=== PATIENT | female | born 1955 | race Caucasian/White ===

== ENCOUNTER 2021-08-10 22:38 | Observation (INO) | payer MEDICARE, MEDICAID, SELFPAY ==
[2021-08-10 22:40] VITALS: BP 227/111; PULSE 75; RESP 16; O2SAT 97; BMI 25.6
--- NOTE | 2021-08-10 22:50 | W.ED.NAVMDI ---
HPI - Nausea/Vomiting/Diarrhea General: Chief complaint: Nausea/Vomiting/Diarrhea Stated complaint: WEAKNESS/N/V Time Seen by Provider: 08/10/21 22:40 Source: patient and EMS Mode of arrival: EMS Limitations: no limitations History of Present Illness: HPI Narrative: 65-year-old female states over last 1 to 2 weeks she has had decreased appetite and has had vomiting states been vomiting roughly once a day and has had some diarrhea as well. States she started to feel very dehydrated and weak. She is also had depression she states that Effexor appetite denies any suicidal homicidal ideations denies any worsening proving factors. Associated nausea: Yes Associated symtoms: Reports nausea; Denies chest pain, dysuria or headache(s) Review of Systems Const: Denies: fever(s), chills, body aches or change in appetite Eyes: Denies: blurry vision or eye discomfort ENMT: Denies: throat pain or dental pain Card: Denies: chest pain Resp: Denies: dyspnea GI: Reports: nausea and vomiting; Denies: abdominal pain or diarrhea : Denies: dysuria Musc: Denies: neck pain or back pain Skin/Breast: Denies: rash Neuro: Denies: headache(s) Psych: Denies: depression [place]/Lymph: Denies: easy bruising All/Imm: Denies: urticaria Physical Exam Const: COMMON NORMALS: no acute distress, patient oriented x3 and healthy appearing HENMT: COMMON NORMALS: normocephalic and atraumatic HEAD & SCALP: normocephalic and atraumatic Eye: COMMON NORMALS: Equal, round and reactive pupils present and EOMs intact bilaterally PUPIL: Yes Equal, round and reactive pupils present Neck/C-Spine: COMMON NORMALS: full ROM and supple Chest: COMMONS NORMALS: normal inspection of the chest and normal palpation of entire chest wall Resp: COMMON NORMALS: normal respiratory effort, No retractions, No use of accessory muscles and clear to auscultation bilaterally AUSCULTATION: clear to auscultation bilaterally Cardio: COMMON NORMALS: regular rate, regular rhythm and No murmurs present (Cardio) RATE: regular rate RHYTHM: regular rhythm GI: COMMON NORMALS: Normal to inspection, nondistended, normoactive bowel sounds present, Soft to palpation, non-tender and no masses PALPATION: Yes Soft to palpation Extremity: COMMON NORMALS: normal to inspection and full ROM Neuro: COMMON NORMALS: patient oriented x3, moves all extremities and no focal motor deficits Psych: COMMON NORMALS: mental status grossly normal, Normal thought process present and cooperative THOUGHT PROCESS: Normal thought process present Skin: COMMON NORMALS: no rashes or lesions noted and no wounds GENERAL SKIN EXAM: no rashes or lesions noted Course Vital Signs: Vital signs: Vital Signs Pulse Rate 74 08/11/21 01:10 Respiratory Rate 16 08/11/21 01:10 Blood Pressure 178/90 08/11/21 01:10 Pulse Oximetry 98 08/11/21 01:10 MDM - Nausea/Vomiting/Diarrhea MDM Narrative: Medical decision making narrative: Patient presents here with acute kidney injury likely from dehydration and vomiting patient is no EKG changes. Abdominal exam is benign spoke to hospitalist will admit for IV hydration. Lab Data: Labs: Lab Results 08/10/21 08/10/21 08/11/21 21:50 21:50 00:01 WBC 10.4 10^3/uL H 10 ^3/uL (4.0-10.0) RBC 4.60 10^6/uL 10^6 /uL (4.1-5.3) Hgb 13.1 g/dL g/dL (11.5-15.3) Hct 39.0 % % (37.0-47.0) MCV 84.8 fl fl (81-99) MCH 28.5 pg pg (28.0-34.0) MCHC 33.6 g/dL g/dL (30.0-36.0) RDW 11.9 % L % (12.1-15.1) Plt Count 411 10^3/cmm H 10 ^3/cmm (130-400) MPV 12.2 fL H fL (7.4-10.4) Neut % (Auto) 73.5 % % Lymph % (Auto) 17.5 % % [place] % (Auto) 5.7 % % Eos % (Auto) 2.3 % % Baso % (Auto) 0.7 % % Neut # (Auto) 7.63 10^3/uL 10^3 /uL (1.8-7.7) Lymph # (Auto) 1.8 10^3/uL 10^3/ uL (0.8-4.8) [place] # (Auto) 0.6 10^3/uL 10^3/ uL (0.2-0.9) Eos # (Auto) 0.2 10^3/uL 10^3/ uL (0.0-0.8) Baso # (Auto) 0.1 10^3/uL 10^3/ uL (0.0-0.1) Nucleated RBC % (a uto) 0 % % Nucleated RBCs # 0.0 /100WBC /100W BC Sodium 129 mmol/L L mmol /L (136-145) Potassium 5.7 mmol/L H mmol /L (3.5-5.1) Chloride 92 mmol/L L mmol/ L (98-107) Carbon Dioxide 20 mmol/L L mmol/ L (22-29) Anion Gap 22.7 H (5-19) BUN 88 mg/dL H* mg/dL (8-23) Creatinine 3.8 mg/dL H mg/dL (0.5-0.9) GFR Calculation 11.8 mL/min L mL/ min (90-130) Glucose 242 mg/dL H mg/dL (65-115) POC Glucose 241 mg/dL H mg/dL (70-110) Calculated Osmolal ity 303 mOsm/kg H mOs m/kg (285-295) Calcium 9.3 mg/dL mg/dL (8.5-10.5) Total Bilirubin 0.2 mg/dL mg/dL (0.15-1.2) AST 21 U/L U/L (0-32) ALT 17 U/L U/L (0-33) Alkaline Phosphata se 176 IU/L H IU/L (35-105) Total Protein 7.3 g/dL g/dL (6.6-8.7) Albumin 3.9 g/dL g/dL (3.5-5.2) Globulin 3.4 g/dL g/dL (1.3-4.6) Lipase 73 U/L H U/L (13-60) Urine Color Urine Appearance Urine pH Ur Specific Gravit y Urine Protein Urine Glucose (UA) Urine Ketones Urine Blood Urine Nitrate Urine Bilirubin Urine Urobilinogen Ur Leukocyte Madyson ase Urine RBC Urine WBC Ur Squamous Epith Cells Amorphous Sediment Urine Bacteria 08/11/21 00:09 WBC RBC Hgb Hct MCV MCH MCHC RDW Plt Count MPV Neut % (Auto) Lymph % (Auto) [place] % (Auto) Eos % (Auto) Baso % (Auto) Neut # (Auto) Lymph # (Auto) [place] # (Auto) Eos # (Auto) Baso # (Auto) Nucleated RBC % (a uto) Nucleated RBCs # Sodium Potassium Chloride Carbon Dioxide Anion Gap BUN Creatinine GFR Calculation Glucose POC Glucose Calculated Osmolal ity Calcium Total Bilirubin AST ALT Alkaline Phosphata se Total Protein Albumin Globulin Lipase Urine Color Yellow (Yellow) Urine Appearance Cloudy (CLEAR) Urine pH 5 (5-7) Ur Specific Gravit y 1.015 (1.005-1.030) Urine Protein 1+ H (Negative) Urine Glucose (UA) Trace H (Normal) Urine Ketones Negative (Negative) Urine Blood Neg (Negative) Urine Nitrate Negative (Negative) Urine Bilirubin Neg (Negative) Urine Urobilinogen Norm mg/dL mg/dL (Negative) Ur Leukocyte Madyson ase 1+ H (Negative) Urine RBC Rare /hpf /hpf (0-2) Urine WBC 0-4 /hpf H /hpf (0-5) Ur Squamous Epith Cells Too numerous to c nt /hpf H /hpf (0-5) Amorphous Sediment Not Reportable Urine Bacteria Tr /hpf /hpf (NONE) Imaging Data^: CT Abd/Pel: Radiologist's impression: [address] [address] [address] Scan Report Signed Patient: Cony Temple Unit #: [id number] : 1955 Age/Sex: 65 / F ADM Date: 08/10/21 Loc: ER Room/Bed: Attending Dr: Ordering Provider/Ordering MD: Candace Ybarra MD Date of Service: 08/11/21 Procedure(s): CT abdomen pelvis con [id number] Accession Number(s): [id number] Report Number: [id number] PROCEDURE INFORMATION: Exam: CT Abdomen And Pelvis Without Contrast Exam date and time: 08/11/2021 12:11 AM Age: 65 years old Clinical indication: Nausea and vomiting; Patient HX: General weakness with n/v. No constrast given due to creatinine of 3.8. ; Additional info: Vomit TECHNIQUE: Imaging protocol: Computed tomography of the abdomen and pelvis without contrast. Radiation optimization: All CT scans at this facility use at least one of these dose optimization techniques: automated exposure control; mA and/or kV adjustment per patient size (includes targeted exams where dose is matched to clinical indication); or iterative reconstruction. COMPARISON: No relevant prior studies available. RADIATION DOSE METRICS: Total DLP (mGy-cm): 1098.5 FINDINGS: Lungs: The lung bases are clear. No effusion Diaphragm: Small hiatal hernia. Liver: Normal. No mass. Gallbladder and bile ducts: There is gallbladder dilation. There is cholelithiasis without wall thickening or pericholecystic fluid. Pancreas: Normal. No ductal dilation. Spleen: Normal. No splenomegaly. Adrenal glands: Normal. No mass. Kidneys and ureters: 4.4 cm left renal cyst. 1.3 cm indeterminate right renal lesion. Recommend further evaluation, on an outpatient basis with dedicated pre and post contrast renal CT or MRI. Stomach and bowel: Unremarkable. No obstruction. No mucosal thickening. Appendix: No evidence of appendicitis. Intraperitoneal space: Unremarkable. No free air. No significant fluid collection. Vasculature: There is mild atherosclerotic disease. Lymph nodes: Unremarkable. No enlarged lymph nodes. Urinary bladder: Unremarkable as visualized. Reproductive: 2.8 cm right ovarian cyst. Multiple calcified uterine fibroids. Bones/joints: Grade 1 anterolisthesis present at L5-S1 secondary to facet arthritis. Soft tissues: Unremarkable. CT/CT abdomen pelvis wo con [id number] IMPRESSION: 1. Cholelithiasis and gallbladder dilation. If the patient has right upper quadrant pain, consider further evaluation with right upper quadrant ultrasound. 2. Small hiatal hernia. 3. 1.3 cm indeterminate right renal lesion. Recommend further evaluation, on an outpatient basis with dedicated pre and post contrast renal CT or MRI. 4. 2.8 cm right ovarian cyst.No further imaging is recommended. (Reference: Timmy) 5. Multiple calcified uterine fibroids. 6. Grade 1 anterolisthesis present at L5-S1 secondary to facet arthritis. COMMENTS: Consistent with the [employer]'s Incidental Findings Committee white paper (J Am Lalo Radiol 2018): Any incidental renal lesion less than 1 cm or classified as too small to characterize, or any incidental cystic renal lesion characterized as simple-appearing, is likely benign. No follow-up imaging is recommended for these lesions per consensus recommendations based on imaging criteria. REFERENCES: Timmy et al. Management of Incidental Adnexal Findings on CT and MRI: A White Paper of the ACR Incidental Findings Committee, J Am Lalo Radiol. 2019;17(2):248-254. Radiation Dose CTDIVOL = (mGy): DLP = 1098.5 (mGy-cm) Dictated By: Zac Dougherty Signed By: Zac Dougherty Signed Date/Time: 08/11/21 0114 DD/ 001 EKG Data^: EKG 1: Attestation: I personally reviewed and interpreted this EKG as follows: EKG interpretation date: 08/11/21 EKG interpretation time: 00:06 Interpretation: nsr hr [address] or t wave abnormalities qrs 101 qtc 444 Discharge Plan Discharge Patient Disposition: Admitted As Inpatient Clinical Impression: Acute kidney injury, Dehydration, Vomiting Condition: Stable Coding Level of Care Code ED Outside Solar Sales Consultant for Chg Fwd Exam Comprehensive
[2021-08-10 22:54] LABS: Basophils # 0.1 10^3/uL (0.0-0.1); Basophils % 0.7 %; Eosinophils # 0.2 10^3/uL (0.0-0.8); Eosinophils % 2.3 %; Hemoglobin 13.1 g/dL (11.5-15.3); Lymphocytes # 1.8 10^3/uL (0.8-4.8); Lymphocytes % 17.5 %; Mean Corpuscular HGB Conc 33.6 g/dL (30.0-36.0); Mean Corpuscular Hemoglobin 28.5 pg (28.0-34.0); Mean Corpuscular Volume 84.8 fl (81-99); Mean Platelet Volume 12.2 fL (7.4-10.4); Monocytes # 0.6 10^3/uL (0.2-0.9); Monocytes % 5.7 %; Neutrophils # 7.63 10^3/uL (1.8-7.7); Neutrophils % 73.5 %; Nucleated Red Blood Cells % 0 %; Platelet Count 411 10^3/cmm (130-400); Red Cell Distribution Width 11.9 % (12.1-15.1); White Blood Count 10.4 10^3/uL (4.0-10.0)
[2021-08-10] MEDS: sodium chloride 0.9% 1,000 ML 999 ML IV (23:02)
[2021-08-10] MEDS: hyDRALAzine 20 mg/mL INJ 1 mL 10 MG IVP (23:02)
[2021-08-10 23:32] LABS: Albumin Level 3.9 g/dL (3.5-5.2); Calcium 9.3 mg/dL (8.5-10.5); Carbon Dioxide 20 mmol/L (22-29); Globulin 3.4 g/dL (1.3-4.6); Glomerular Filtration Rate 11.8 mL/min (90-130); Glucose 242 mg/dL (65-115); Lipase 73 U/L (13-60); Total Bilirubin 0.2 mg/dL (0.15-1.2); Total Protein 7.3 g/dL (6.6-8.7)
[2021-08-10 23:42] VITALS: BP 181/74
[2021-08-10 23:49] LABS: Alanine Aminotransferase 17 U/L (0-33); Alkaline Phosphatase 176 IU/L (35-105); Aspartate Amino Transferase 21 U/L (0-32); Chloride 92 mmol/L (98-107); Osmolality Calculated 303 mOsm/kg (285-295); Sodium 129 mmol/L (136-145)
[2021-08-10 23:53] LABS: Blood Urea Nitrogen 88 mg/dL (8-23)
[2021-08-10 23:54] LABS: Anion Gap 22.7 (5-19); Potassium 5.7 mmol/L (3.5-5.1)
--- NOTE | 2021-08-10 23:57 | ECG_ITS ---
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 Measurements Intervals [place] Rate: 73 P: 56 NE: 175 QRS: -23 QRSD: 101 T: 116 QT: 418 QTc: 463 Interpretive Statements SINUS RHYTHM BORDERLINE LEFT AXIS DEVIATION [QRS AXIS < -20] LEFT VENTRICULAR HYPERTROPHY AND ST-T CHANGE [VOLTAGE CRITERIA PLUS ST/T ABNORMALITY] No previous ECG available for comparison Electronically Signed On 08-11-2021 17:08:43 CDT by Dean Gilmore M.D. [id number]
[2021-08-11] VITALS (8 sets, daily range): BP systolic 114–185; BP diastolic 57–90; PULSE 67–78; RESP 16–18; TEMP 36.5–37.1; O2SAT 94–98; BMI 26.5
[2021-08-11 00:09] LABS: Glucose Point of Care 241 mg/dL (70-110)
--- NOTE | 2021-08-11 00:11 | CTR_ITS ---
PROCEDURE INFORMATION: Exam: CT Abdomen And Pelvis Without Contrast Exam date and time: 08/11/2021 12:11 AM Age: 65 years old Clinical indication: Nausea and vomiting; Patient HX: General weakness with n/v. No constrast given due to creatinine of 3.8. ; Additional info: Vomit TECHNIQUE: Imaging protocol: Computed tomography of the abdomen and pelvis without contrast. Radiation optimization: All CT scans at this facility use at least one of these dose optimization techniques: automated exposure control; mA and/or kV adjustment per patient size (includes targeted exams where dose is matched to clinical indication); or iterative reconstruction. COMPARISON: No relevant prior studies available. RADIATION DOSE METRICS: Total DLP (mGy-cm): 1098.5 FINDINGS: Lungs: The lung bases are clear. No effusion Diaphragm: Small hiatal hernia. Liver: Normal. No mass. Gallbladder and bile ducts: There is gallbladder dilation. There is cholelithiasis without wall thickening or pericholecystic fluid. Pancreas: Normal. No ductal dilation. Spleen: Normal. No splenomegaly. Adrenal glands: Normal. No mass. Kidneys and ureters: 4.4 cm left renal cyst. 1.3 cm indeterminate right renal lesion. Recommend further evaluation, on an outpatient basis with dedicated pre and post contrast renal CT or MRI. Stomach and bowel: Unremarkable. No obstruction. No mucosal thickening. Appendix: No evidence of appendicitis. Intraperitoneal space: Unremarkable. No free air. No significant fluid collection. Vasculature: There is mild atherosclerotic disease. Lymph nodes: Unremarkable. No enlarged lymph nodes. Urinary bladder: Unremarkable as visualized. Reproductive: 2.8 cm right ovarian cyst. Multiple calcified uterine fibroids. Bones/joints: Grade 1 anterolisthesis present at L5-S1 secondary to facet arthritis. Soft tissues: Unremarkable. CT/CT abdomen pelvis wo con [id number] IMPRESSION: 1. Cholelithiasis and gallbladder dilation. If the patient has right upper quadrant pain, consider further evaluation with right upper quadrant ultrasound. 2. Small hiatal hernia. 3. 1.3 cm indeterminate right renal lesion. Recommend further evaluation, on an outpatient basis with dedicated pre and post contrast renal CT or MRI. 4. 2.8 cm right ovarian cyst.No further imaging is recommended. (Reference: Timmy) 5. Multiple calcified uterine fibroids. 6. Grade 1 anterolisthesis present at L5-S1 secondary to facet arthritis. COMMENTS: Consistent with the [employer]'s Incidental Findings Committee white paper (J Am Lalo Radiol 2018): Any incidental renal lesion less than 1 cm or classified as too small to characterize, or any incidental cystic renal lesion characterized as simple-appearing, is likely benign. No follow-up imaging is recommended for these lesions per consensus recommendations based on imaging criteria. REFERENCES: Timmy et al. Management of Incidental Adnexal Findings on CT and MRI: A White Paper of the ACR Incidental Findings Committee, J Am Lalo Radiol. 2019;17(2):248-254. Radiation Dose CTDIVOL = (mGy): DLP = 1098.5 (mGy-cm)
[2021-08-11 00:34] LABS: Add Urine Microscopic? YES; Bilirubin Urine Neg (Negative); Blood Urine Neg (Negative); Glucose Urine UA Trace (Normal); Ketones Urine Negative (Negative); Leukocyte Esterase Urine 1+ (Negative); Nitrate Urine Negative (Negative); Protein Urine 1+ (Negative); Specific Gravity, Urine 1.015 (1.005-1.030); Urine Appearance Cloudy (CLEAR); Urine Color Yellow (Yellow); Urobilinogen Urine Norm (Negative); pH Urine 5 (5-7)
[2021-08-11 00:35] LABS: Add Urine Culture? No; Bacteria Urine TR /hpf; RBC Urine RARE /hpf (0-2); Squamous Epithelial Cell Urine TOO NUMEROUS TO CNT /hpf (0-5); WBC Urine 0-4 /hpf (0-5)
[2021-08-11] MEDS: LORazepam 2 mg/mL INJ 1 mL 0.5 MG IVP (01:10)
--- NOTE | 2021-08-11 02:23 | P.HP_ITS ---
Providers/Chief Complaint Admitting Physician: Lam Zhang Chief Complaint: WEAKNESS/N/V History of Present Illness Cony Temple is a 65 year old female with past medical history of diabetes, hypertension who is presenting with complaints of nausea, vomiting, decreased appetite for the last 2 weeks. She develops nausea every time she tries to eat. She denies any hematemesis. She also denies any diarrhea or constipation. The color of the stool is regular brown. Denies abdominal pain. No chills. She denies any known history of gallbladder disease. CT of the abdomen revealed cholelithiasis and gallbladder dilation. Accidentally she also is found to have 1.3 cm right renal lesion for which radiologist recommended additional outpatient evaluation. Please see radiology report for more details. The patient denies any similar episodes in the past. Review of Systems General: Reports: 10 or more systems reviewed and unremarkable except in HPI and below Medications/Allergies Home Medications Medication Instructions Recorded Confirmed Last Taken Type aspirin [Adult Aspirin EC Low 81 mg PO DAILY 08/10/21 08/10/21 Unknown History Strength] atenolol 50 mg PO BID 08/10/21 08/10/21 Unknown History glipizide 10 mg PO BID 08/10/21 08/10/21 Unknown History lisinopril 10 mg PO DAILY 08/10/21 08/10/21 Unknown History metformin 500 mg PO BID 08/10/21 08/10/21 Unknown History omega-3 fatty acids [[place] 3 Fish 1,000 mg PO DAILY 08/10/21 08/10/21 Unknown History Oil] torsemide 20 mg PO DAILY 08/10/21 08/10/21 Unknown History triamterene-hydrochlorothiazid 1 tab PO DAILY 08/10/21 08/10/21 Unknown History venlafaxine [Effexor] 37.5 mg PO DAILY 08/10/21 08/10/21 Unknown History Allergies Allergy/AdvReac Type Severity Reaction Status Date / Time azithromycin Allergy Unknown Verified 08/10/21 22:41 mycins Allergy Unknown Uncoded 08/10/21 22:41 Vitals/I&O/Wt Last Vital Signs Temp 97.7 F 08/11/21 01:55 Pulse 78 08/11/21 01:55 Resp 18 08/11/21 01:55 BP 168/82 08/11/21 01:55 Pulse Ox 98 08/11/21 01:55 08/10/21 08/10/21 08/11/21 14:59 22:59 06:59 Intake Total 1000 / 1000 Balance 1000 / 1000 Weight last 48 hrs Weight 63.503 kg Physical Exam Narrative: EXAM NARRATIVE: Patient is currently awake alert oriented. No acute distress. Mood and affect are appropriate. Responses are adequate. Skin is warm and dry. Moist extremities. Neck supple. No JVD Lungs are clear to auscultation bilaterally. No wheeze or crackles Heart S1, S2, regular Abdomen soft, nontender, bowel sounds are present. Nichole sign is negative. No guarding or rebound. Extremities trace edema. No cyanosis no calf tenderness bilaterally Neuro examination is nonfocal. Data : 08/10/21 21:50 08/10/21 21:50 A&P Additional A&P Information 65 year old female with past medical history of diabetes, hypertension who is presenting with complaints of nausea, vomiting, decreased appetite for the last [address] of the abdomen revealed cholelithiasis and gallbladder dilation. Accidentally she also is found to have 1.3 cm right renal lesion for which radiologist recommended additional outpatient evaluation. Please see radiology report for more details. The patient has associated dehydration and acute kidney injury with hyperkalemia. Nausea and vomiting suspected to be secondary to gallbladder disease. Will order ultrasound of the right upper quadrant. Level request surgical evaluation if ultrasound confirms gallbladder disease. Will use Zofran for nausea. She does not have any significant pain. Acute kidney injury and hyperkalemia secondary to dehydration secondary to #1. We will hydrate the patient with normal saline and monitor her kidney function and electrolytes. Hyponatremia probably secondary to dehydration and acute kidney injury. Will hydrate and monitor. Kidney lesion. Outpatient reevaluation is recommended by radiology. Please discussed with the patient after her stabilization prior to discharge. DVT prophylaxis. SCDs. No anticoagulation at this time due to possible need for surgery. Hypertension. As needed hydralazine. History of diabetes. We will hold her home diabetes medications. Will use insulin sliding scale. CODE STATUS. She wants to be full code. The plan of care was discussed with the patient and her family. They verbalized understanding and agreement. Attestations Medical Necessity Statement*: Based on my assessment of patient's current condition and findings I expect that the patient will spend more than 2 midnights in the hospital. Coding Level of Care Code Acute Veterans Employment Representative for Vikas Osorio
--- NOTE | 2021-08-11 02:32 | US_ITS ---
WS: [id number] ULTRASOUND ABDOMEN LIMITED CLINICAL INFORMATION: RUQ, gallbladder COMPARISON: None. FINDINGS: Liver Size: Normal. Craniocaudal length: 16.2 cm. Echogenicity: Normal. Surface nodularity: None. Mass (size and location): None. Bile ducts Intrahepatic ducts: Normal. Common bile duct diameter: 0.6 cm. Gallbladder Fluid distended gallbladder with sludge and calculi Gallstones: Present Gallbladder sludge: Present Gallbladder wall thickening: None. Pericholecystic fluid: None. Sonographic Nichole sign: Absent. Pancreas Normal as visualized. Right kidney: Upper pole renal cyst measures 1.0 x 0.9 cm Hydronephrosis: None. Size: 9.4 cm x 3.9 cm x 4.9 cm. Abdominal aorta and IVC Visualized portions are normal. Ascites: None. US/US abdomen limited [id number] IMPRESSION: 1. Hydropic gallbladder with cholelithiasis and sludge. No gallbladder wall th ickening or pericholecystic fluid. Normal common bile duct. 2. Normal liver. No intrahepatic biliary duct dilatation. 3. No hydronephrosis in right kidney. 4. Small slightly complex right renal cyst.
[2021-08-11] MEDS: sodium chloride 0.9% 1,000 ML 125 ML IV (03:26)
[2021-08-11 06:37] LABS: Anion Gap 15.4 (5-19); Calcium 8.4 mg/dL (8.5-10.5); Carbon Dioxide 20 mmol/L (22-29); Chloride 100 mmol/L (98-107); Glomerular Filtration Rate 12.2 mL/min (90-130); Glucose 201 mg/dL (65-115); Osmolality Calculated 302 mOsm/kg (285-295); Potassium 5.4 mmol/L (3.5-5.1); Sodium 130 mmol/L (136-145)
[2021-08-11 07:18] LABS: Blood Urea Nitrogen 85 mg/dL (8-23)
[2021-08-11] MEDS: insulin lispro 100 unit/1 mL SUBCUT ×3 (09:25→21:19)
--- NOTE | 2021-08-11 09:27 | PM.MISC ---
Miscellaneous Note Purpose of Documentation: Follow-up Note: Patient was seen and examined this morning, no recurrence of nausea vomiting, diet was advanced to low-fat, ultrasound abdomen did not show cholecystitis Most likely her symptoms are related to hiatal hernia Patient sitting comfortably in her bed S1, S2 Abdomen soft Nichole sign negative EOMI, PERRLA Nonfocal neuro exam No audible stridor or wheezing Plan Recurrent nausea vomiting related to hiatal hernia, added Protonix, low-fat diet MYNOR related to dehydration continue IV fluids normal saline changed to 50 mL/h instead of 125 mill Hyperkalemia: Given Kayexalate, No signs of UTI Plan to discharge her tomorrow if clinically stable Less than 15 minutes
[2021-08-11] MEDS: amlodipine 10 mg Tablet PO (10:24)
[2021-08-11] MEDS: heparin 5,000 unit/mL INJ 1 mL 5000 UNIT SUBCUT ×2 (10:24→17:46)
[2021-08-11] MEDS: atenolol 50 mg Tablet PO ×2 (10:24→17:46)
[2021-08-11] MEDS: sodium polystyrene sulfonate 15 gm/60 mL Btl PO (10:25)
[2021-08-11 10:37] LABS: Glucose Point of Care 164 mg/dL (70-110)
[2021-08-11 10:37] LABS: Glucose Point of Care 175 mg/dL (70-110)
[2021-08-11 10:37] LABS: Glucose Point of Care 201 mg/dL (70-110)
--- NOTE | 2021-08-11 10:44 | PC.CHAP ---
Pastoral Care Encounter/Spiritual Assessment Type of Contact [] Declined house father visit [] Patient/Family/Request visit [] Outpatient visit [] Follow-up visit [] Physician referral [] Code/Alert [x] Routine visit [] Staff referral [] Actively dying [] Patient sleeping [] Family support [] [] Out of room [] Palliative care [] [x] Receiving care in room [] Pre-surgical visit [] Trauma [] Long length of stay [] ICU visit [] Other: Relational/Emotional Strength [x] Patient feels connected with others/family/visitors/staff [] Distress [] Loneliness/isolation [] Abandonment Spirituality of Patient [x] Person of Annabel [] Attends Pentecostalism of their Annabel [x] Believes in Prayer [] Reads Bible or Caodaism materials [] There are Spiritual issues to be addressed Printed Circuit Board Assembly Repairer Interventions [x] Prayer [x] Active listening [x] Non-anxious presence [x] Spiritual/emotional support [] Crisis/trauma care [x] Spiritual counseling [] Bereavement support [] Provided bereavement packet [] Provided Bible/devotional materials [] Provided toy/stuffed animal, coloring book to patient or family member [] Provided Communion [] Anointing/[place] [] Salvation [x] Completed spiritual assessment [] Other: Impact on Illness or Injury [] Angry [] Fearful [x] Anxious [] Often cries [] Exhaustion [] Unable to work [] Unable to attend mu-ism [] Unable to walk/stand [] Unable to read [] Unable to drive [] Unable to eat/drink [] Unable to sleep [] Unable to be with family [] Patient intubated [] Other: Summary she is dealing with some health problems waiting to see if there is a need foe surgery on gilberto angie hung attitude will be going home soon Time spent with patient 10 mins
[2021-08-11 11:26] LABS: Glucose Point of Care 211 mg/dL (70-110)
[2021-08-11] MEDS: sodium chloride 0.9% 1,000 ML 75 ML IV (12:06)
[2021-08-11 17:43] LABS: Glucose Point of Care 125 mg/dL (70-110)
[2021-08-11 20:49] LABS: Glucose Point of Care 347 mg/dL (70-110)
[2021-08-12] VITALS (7 sets, daily range): BP systolic 129–175; BP diastolic 54–88; PULSE 61–77; RESP 16–20; TEMP 36.6–36.8; O2SAT 91–96
[2021-08-12] MEDS: sodium chloride 0.9% 1,000 ML 75 ML IV ×2 (03:10→18:03)
[2021-08-12] MEDS: heparin 5,000 unit/mL INJ 1 mL 5000 UNIT SUBCUT ×3 (03:10→18:03)
[2021-08-12 05:45] LABS: Basophils # 0.1 10^3/uL (0.0-0.1); Basophils % 0.7 %; Eosinophils # 0.5 10^3/uL (0.0-0.8); Eosinophils % 5.3 %; Hemoglobin 11.2 g/dL (11.5-15.3); Lymphocytes # 2.4 10^3/uL (0.8-4.8); Mean Corpuscular Hemoglobin 28.9 pg (28.0-34.0); Mean Corpuscular Volume 90.4 fl (81-99); Mean Platelet Volume 11.6 fL (7.4-10.4); Monocytes # 0.5 10^3/uL (0.2-0.9); Monocytes % 5.8 %; Neutrophils # 5.45 10^3/uL (1.8-7.7); Neutrophils % 60.9 %; Nucleated Red Blood Cells % 0 %; Platelet Count 331 10^3/cmm (130-400); Red Blood Count 3.87 10^6/uL (4.1-5.3); White Blood Count 8.9 10^3/uL (4.0-10.0)
[2021-08-12 05:55] LABS: Blood Urea Nitrogen 69 mg/dL (8-23); Calcium 8.4 mg/dL (8.5-10.5); Carbon Dioxide 18 mmol/L (22-29); Chloride 102 mmol/L (98-107); Glomerular Filtration Rate 15.6 mL/min (90-130); Glucose 280 mg/dL (65-115); Magnesium 2.1 mg/dL (1.7-2.3); Osmolality Calculated 308 mOsm/kg (285-295); Sodium 134 mmol/L (136-145)
[2021-08-12 06:44] LABS: Glucose Point of Care 317 mg/dL (70-110)
[2021-08-12] MEDS: venlafaxine 75 mg Tablet 37.5 MG PO (08:58)
[2021-08-12] MEDS: atenolol 50 mg Tablet PO ×2 (08:58→18:39)
[2021-08-12] MEDS: pantoprazole DR 40 mg Tablet PO (08:58)
[2021-08-12] MEDS: amlodipine 10 mg Tablet PO (09:00)
[2021-08-12] MEDS: insulin lispro 100 unit/1 mL SUBCUT ×4 (09:01→20:46)
--- NOTE | 2021-08-12 09:43 | PC.CHAP ---
Pastoral Care Encounter/Spiritual Assessment Type of Contact [] Declined assembler brazer visit [] Patient/Family/Request visit [] Outpatient visit [] Follow-up visit [] Physician referral [] Code/Alert x[] Routine visit [] Staff referral [] Actively dying [x] Patient sleeping [] Family support [] [] Out of room [] Palliative care [] [] Receiving care in room [] Pre-surgical visit [] Trauma [] Long length of stay [] ICU visit [] Other: Relational/Emotional Strength [] Patient feels connected with others/family/visitors/staff [] Distress [] Loneliness/isolation [] Abandonment Spirituality of Patient [] Person of Annabel [] Attends Hindu of their Annabel [] Believes in Prayer [] Reads Bible or Yazidism materials [] There are Spiritual issues to be addressed Stove Cleaner Interventions [] Prayer [] Active listening [] Non-anxious presence [] Spiritual/emotional support [] Crisis/trauma care [] Spiritual counseling [] Bereavement support [] Provided bereavement packet [] Provided Bible/devotional materials [] Provided toy/stuffed animal, coloring book to patient or family member [] Provided Communion [] Anointing/[place] [] Salvation [] Completed spiritual assessment [] Other: Impact on Illness or Injury [] Angry [] Fearful [] Anxious [] Often cries [] Exhaustion [] Unable to work [] Unable to attend sabianism [] Unable to walk/stand [] Unable to read [] Unable to drive [] Unable to eat/drink [] Unable to sleep [] Unable to be with family [] Patient intubated [] Other: Summary Time spent with patient
[2021-08-12] MEDS: ondansetron 2 mg/ML SDV 2 mL 4 MG IVP (09:57)
[2021-08-12 11:14] LABS: Glucose Point of Care 448 mg/dL (70-110)
--- NOTE | 2021-08-12 11:39 | P.PN_ITS ---
Subjective Subjective: Interval history: Patient had 1 episode of emesis after breakfast this morning Requested HIDA scan Added hemoglobin A1c level, lipase panel, Lantus 10 units for hyperglycemia, anion gap 19 I would like to keep her here [address] abdomen ultrasound unremarkable Vitals/I&O/Wt Last Vital Signs Temp 98.3 F 08/12/21 11:34 Pulse 75 08/12/21 11:34 Resp 17 08/12/21 11:34 BP 133/64 08/12/21 11:34 Pulse Ox 94 08/12/21 11:34 08/11/21 08/12/21 08/12/21 22:59 06:59 14:59 Intake Total 480 / 1480.00 1270 / 2750.00 360 / 360 Output Total Balance 479 / 1479.00 1270 / 2749.00 360 / 360 Weight last 48 hrs Weight 63.503 kg Weight 65.771 kg Weight 63.503 kg Physical Exam Narrative: EXAM NARRATIVE: Patient was sitting at the bedside No active complaints Abdomen soft Nichole sign negative S1, S2 Normal hemodynamically Does not look dehydrated EOMI, PERRLA Nonfocal neuro exam No audible stridor or wheezing saturating well on room air Data : 08/12/21 05:03 08/12/21 05:03 A&P Assessment and plan (1) Acute kidney injury: Status: Acute (2) Dehydration: Status: Acute (3) Vomiting: Status: Acute (4) Cholelithiasis: Status: Acute (5) Hyperglycemia: Status: Acute Additional A&P Information Recurrent nausea vomiting Cholelithiasis without cholecystitis Afebrile no leukocytosis Nichole sign negative HIDA scan not able to be done over the weekend In case of recurrent nausea vomiting may repeat CT abdomen pelvis Repeat lipase level however no signs of pancreatitis on recent CT scan Does not meet criteria for DKA however has hyperglycemia request hemoglobin A1c, added Lantus 10 units MYNOR with dehydration creatinine slowly improving increase normal saline to 100 mL/h Magnesium 2.1 Full code Low-fat diet DVT prophylaxis Heparin Depression: Currently on Effexor, patient is not suicidal, she does endorse to situational anxiety and depression Attestations Medical Necessity Statement*: Patient will need further monitoring and observation for recurrent nausea vomiting Time Spent in Patient Care: 16 - 35 minutes Coding Level of Care Code Acute Curriculum Supervisor for Chg Fwd Diagnoses Acute kidney injury N17.9 Dehydration E86.0 Vomiting R11.10 Cholelithiasis K80.20 Hyperglycemia R73.9
[2021-08-12 12:10] LABS: Lipase 32 U/L (13-60)
[2021-08-12 12:15] LABS: Estmated Average Glucose 301; Hemoglobin A1C 12.1 % (4.0-6.0)
[2021-08-12] MEDS: lactated ringers 1,000 ML 999 ML IV (12:46)
[2021-08-12 18:12] LABS: Glucose Point of Care 185 mg/dL (70-110)
[2021-08-12 20:25] LABS: Glucose Point of Care 193 mg/dL (70-110)
[2021-08-12] MEDS: insulin glargine 100 units/1 mL 20 UNIT SUBCUT (20:47)
[2021-08-13] MEDS: heparin 5,000 unit/mL INJ 1 mL 5000 UNIT SUBCUT ×2 (00:31→08:21)
[2021-08-13] MEDS: sodium chloride 0.9% 1,000 ML 75 ML IV (00:32)
[2021-08-13 04:00] VITALS: BP 169/65; PULSE 63; RESP 16; TEMP 36.5; O2SAT 93
[2021-08-13] MEDS: hyDRALAzine 20 mg/mL INJ 1 mL 10 MG IVP (04:52)
[2021-08-13 06:04] LABS: Basophils # 0.1 10^3/uL (0.0-0.1); Basophils % 0.7 %; Eosinophils # 0.5 10^3/uL (0.0-0.8); Eosinophils % 5.4 %; Hemoglobin 9.9 g/dL (11.5-15.3); Lymphocytes % 32.6 %; Mean Corpuscular HGB Conc 31.9 g/dL (30.0-36.0); Mean Corpuscular Hemoglobin 28.4 pg (28.0-34.0); Mean Corpuscular Volume 88.8 fl (81-99); Mean Platelet Volume 11.7 fL (7.4-10.4); Monocytes # 0.7 10^3/uL (0.2-0.9); Neutrophils % 53.2 %; Nucleated Red Blood Cells % 0 %; Platelet Count 310 10^3/cmm (130-400); Red Blood Count 3.49 10^6/uL (4.1-5.3); Red Cell Distribution Width 11.9 % (12.1-15.1); White Blood Count 9.2 10^3/uL (4.0-10.0)
[2021-08-13 06:23] LABS: Anion Gap 15.1 (5-19); Blood Urea Nitrogen 59 mg/dL (8-23); Calcium 8.5 mg/dL (8.5-10.5); Carbon Dioxide 18 mmol/L (22-29); Chloride 106 mmol/L (98-107); Glomerular Filtration Rate 20.1 mL/min (90-130); Glucose 58 mg/dL (65-115); Osmolality Calculated 294 mOsm/kg (285-295); Potassium 4.1 mmol/L (3.5-5.1); Sodium 135 mmol/L (136-145)
[2021-08-13 06:49] LABS: Glucose Point of Care 62 mg/dL (70-110)
[2021-08-13 06:56] LABS: Glucose Point of Care 60 mg/dL (70-110)
[2021-08-13 07:14] LABS: Glucose Point of Care 89 mg/dL (70-110)
[2021-08-13 08:00] VITALS: BP 157/67; PULSE 72; RESP 16; TEMP 37.1; O2SAT 92
[2021-08-13] MEDS: venlafaxine 75 mg Tablet 37.5 MG PO (08:19)
[2021-08-13] MEDS: atenolol 50 mg Tablet PO (08:20)
[2021-08-13] MEDS: pantoprazole DR 40 mg Tablet PO (08:20)
[2021-08-13] MEDS: amlodipine 10 mg Tablet PO (08:20)
[2021-08-13 09:24] LABS: Glucose Point of Care 238 mg/dL (70-110)
--- NOTE | 2021-08-13 11:38 | PM.DCS ---
Discharge Providers Date of Admission: 08/11/21 01:15 Date of Discharge: August 13, 2021 Attending Provider at Admission: Lam Zhang Attending Provider at Discharge: Chris Rizzo MD Diagnoses at Discharge Discharge Diagnosis (1) Acute kidney injury: Status: Acute (2) Dehydration: Status: Acute (3) Vomiting: Status: Acute (4) Cholelithiasis: Status: Acute (5) Hyperglycemia: Status: Acute Reason for Visit Reason for Visit: WEAKNESS/N/V Hospital Course Hospital Course 65-year-old female with history of diabetes, hypertension, presented to the hospital with chief complaint of 3 weeks of recurrent nausea and vomiting. Diagnostic work-up in the ER revealed distended gallbladder however ultrasound abdomen did not show acute cholecystitis. Bilirubin is normal no abnormal AST and ALT noted. Patient remained afebrile. No signs of leukocytosis with active inflammation. Nichole sign negative on clinical exam. I requested hemoglobin A1c level which came back as high as 12. Patient only experienced one episode of emesis during hospitalization otherwise he was able to tolerate low-fat diet. Her symptoms are most likely consistent with diabetic gastroparesis with uncontrolled/labile blood sugar. I put her on Lantus 20 units and she became hypoglycemic next day. Patient is stating that she takes Levemir 38 units in the morning and 30 at night with sliding scale. I asked her to cut back on her insulin take 10 units in the morning and 5 at night and monitor fasting blood glucose if consistently above 130 increase by 2 units every night until meets the desired goal. Her appetite has been low lately, she was started on Effexor by PCP. Patient is denying active signs of depression, she is not suicidal. At the time of discharge I did give her a prescription for gastric emptying study. I also prescribed her Reglan for next few days. I counseled her to eat small meals but eat frequently. She will consider high risk for cholecystitis. I called her daughter to update her and told her to follow-up with general surgeon if she develops right upper quadrant pain with fever. Physical Exam Narrative: EXAM NARRATIVE: female Looks hydrated Saturating well on room air Abdomen soft Nichole sign negative ER, PERRLA S1, S2 Discharge Data Data Completed and Pending: Completed Studies During Hospitalization Category Date Time Status CT abdomen pelvis wo con [id number] Urge nt Cat Scan 08/11/21 00:11 Completed [place] abdomen limite d [id number] Routine Ultrasound 08/11/21 02:32 Completed Pending at discharge Category Date Time Status NM hepatobiliary w phar* [id number] Urge nt Nuc Med 08/15/21 11:35 Ordered Labs from last 24 hours 08/13/21 08/13/21 08/13/21 08:29 07:11 06:53 WBC RBC Hgb Hct MCV MCH MCHC RDW Plt Count MPV Neut % (Auto) Lymph % (Auto) [place] % (Auto) Eos % (Auto) Baso % (Auto) Neut # (Auto) Lymph # (Auto) [place] # (Auto) Eos # (Auto) Baso # (Auto) Nucleated RBC % (a uto) Nucleated RBCs # Sodium Potassium Chloride Carbon Dioxide Anion Gap BUN Creatinine GFR Calculation Glucose POC Glucose 238 H 89 60 L Estimat Average Gl ucose Hemoglobin A1c Calculated Osmolal ity Calcium Lipase 08/13/21 08/13/21 08/13/21 06:35 05:16 05:16 WBC 9.2 RBC 3.49 L Hgb 9.9 L Hct 31.0 L MCV 88.8 MCH 28.4 MCHC 31.9 RDW 11.9 L Plt Count 310 MPV 11.7 H Neut % (Auto) 53.2 Lymph % (Auto) 32.6 [place] % (Auto) 8.0 Eos % (Auto) 5.4 Baso % (Auto) 0.7 Neut # (Auto) 4.90 Lymph # (Auto) 3.0 [place] # (Auto) 0.7 Eos # (Auto) 0.5 Baso # (Auto) 0.1 Nucleated RBC % (a uto) 0 Nucleated RBCs # 0.0 Sodium 135 L Potassium 4.1 Chloride 106 Carbon Dioxide 18 L Anion Gap 15.1 BUN 59 H Creatinine 2.4 H GFR Calculation 20.1 L Glucose 58 L POC Glucose 62 L Estimat Average Gl ucose Hemoglobin A1c Calculated Osmolal ity 294 Calcium 8.5 Lipase 08/12/21 08/12/21 08/12/21 20:05 18:05 05:03 WBC RBC Hgb Hct MCV MCH MCHC RDW Plt Count MPV Neut % (Auto) Lymph % (Auto) [place] % (Auto) Eos % (Auto) Baso % (Auto) Neut # (Auto) Lymph # (Auto) [place] # (Auto) Eos # (Auto) Baso # (Auto) Nucleated RBC % (a uto) Nucleated RBCs # Sodium Potassium Chloride Carbon Dioxide Anion Gap BUN Creatinine GFR Calculation Glucose POC Glucose 193 H 185 H Estimat Average Gl ucose 301 Hemoglobin A1c 12.1 H Calculated Osmolal ity Calcium Lipase 08/12/21 05:03 WBC RBC Hgb Hct MCV MCH MCHC RDW Plt Count MPV Neut % (Auto) Lymph % (Auto) [place] % (Auto) Eos % (Auto) Baso % (Auto) Neut # (Auto) Lymph # (Auto) [place] # (Auto) Eos # (Auto) Baso # (Auto) Nucleated RBC % (a uto) Nucleated RBCs # Sodium Potassium Chloride Carbon Dioxide Anion Gap BUN Creatinine GFR Calculation Glucose POC Glucose Estimat Average Gl ucose Hemoglobin A1c Calculated Osmolal ity Calcium Lipase 32 Vitals: Last Vital Signs Temp 98.8 F 08/13/21 08:00 Pulse 72 08/13/21 08:00 Resp 16 08/13/21 08:00 BP 157/67 08/13/21 08:00 Pulse Ox 92 08/13/21 08:00 Discharge Plan Discharge Patient Disposition: Home Condition: Stable Prescriptions: New Reglan 5 mg tablet 5 mg PO DAILY Qty: 10 RF: 0 Humalog U-100 Insulin 100 unit/mL cartridge See Rx Instructions .ROUTE .COMPLEX Qty: 15 RF: 2 Continued metformin 500 mg Tablet 500 mg PO BID RF: 0 glipizide 10 mg Tablet 10 mg PO BID RF: 0 aspirin 81 mg Tablet,Delayed Release (Dr/Ec) 81 mg PO DAILY RF: 0 venlafaxine 37.5 mg Tablet 37.5 mg PO DAILY RF: 0 lisinopril 10 mg Tablet 10 mg PO DAILY RF: 0 triamterene-hydrochlorothiazid 75-50 mg Tablet 1 tab PO DAILY RF: 0 atenolol 50 mg Tablet 50 mg PO BID RF: 0 omega-3 fatty acids Capsule 1,000 mg PO DAILY RF: 0 Held torsemide 20 mg Tablet 20 mg PO DAILY RF: 0 Hold Instructions: Resume on 08/29/21. Discharge Orders: Discharge Order (Routine); Ordered 08/13/21 Ordered By: Chris Rizzo Other Ambulatory Orders: [place] gastric [place] [id number] (Routine) Timeframe: 1 Week Facility: [facility] - Location: Radiology Ordered By: Perez Matthias Discharge Diet: Diabetic Discharge Activity: Increase activity as tolerated Patient Instructions: Metoclopramide (By mouth), Gastroparesis (GEN), Opioid Safety Activity Restrictions/Additional Instructions: 140 - 180 2 units 181 - 240 3 units 241 - 300 4 units 301 - 350 6 units 351 - 400 8 units Greater than 400 max 10 U Discharge Attestations Time Spent in Discharge Care*: less than 30 min Quality Metrics Clinical Quality Measures During this hospital stay, did patient experience: None Coding Level of Care Code Acute g [facility] note Diagnoses Acute kidney injury N17.9 Dehydration E86.0 Vomiting R11.10 Cholelithiasis K80.20 Hyperglycemia R73.9
[2021-08-13 11:39] LABS: Glucose Point of Care 558 mg/dL (70-110)
[2021-08-13 11:39] LABS: Glucose Point of Care 510 mg/dL (70-110)
[2021-08-13 11:59] VITALS: BP 162/65; PULSE 70; RESP 16; TEMP 36.5; O2SAT 92
[2021-08-13 12:24] LABS: Glucose 515 mg/dL (65-115)
--- NOTE | 2021-08-13 12:36 | PC.NURSE ---
Dr. Rizzo notified of pt's blood glucose 515. Orders received to give 20 humalog sub Q.
[2021-08-13] MEDS: insulin lispro 100 unit/1 mL 20 UNIT SUBCUT (12:45)
[2021-08-13 13:48] LABS: Glucose Point of Care 430 mg/dL (70-110)
--- NOTE | 2021-08-13 14:11 | PC.NURSE ---
Pt's blood sugar recheck 430. Pt and family at bedside stating they will take care of it at home. All prescriptions called into [facility] in [place] due to [facility] pharmacy being closed. Discharge instructions reviewed and all questions answered with pt and family.
== END 2021-08-13 14:17 | disposition home or self-care (01) ==
LOC: ER 08-11 01:16 → MEDSURG 08-11 07:35
PROVIDERS: Admitting Provider Internal Medicine; Emergency Provider Emergency Medicine; Visit Provider Internal Medicine
DX: N17.9 Acute kidney failure, unspecified (principal); E86.0 Dehydration; R11.10 Vomiting, unspecified; K31.84 Gastroparesis; K80.20 Calculus of gallbladder without cholecystitis without obstruction; F32.A Depression, unspecified; I10 Essential (primary) hypertension; Z79.82 Long term (current) use of aspirin; Z79.84 Long term (current) use of oral hypoglycemic drugs; E11.65 Type 2 diabetes mellitus with hyperglycemia
CPT/HCPCS: 36415; 36416; 74176; 76705; 80048; 80053; 81001; 82947; 82962; 83036; 83690; 83735; 85025; 93005; 96361; 96372; 96374; 96375; 99285; G0378; J0360; J1644; J1815 ×2; J2060; J2405; J7030

== ENCOUNTER 2021-08-21 13:12 | Inpatient (IN) | payer MEDICARE, MEDICAID, SELFPAY ==
[2021-08-21] VITALS (12 sets, daily range): BP systolic 125–157; BP diastolic 61–101; PULSE 76–99; RESP 15–22; TEMP 36.5; O2SAT 88–98; BMI 27.4
--- NOTE | 2021-08-21 03:22 | XRR_ITS ---
PROCEDURE INFORMATION: Exam: XR Chest Exam date and time: 08/21/2021 3:22 AM Age: 65 years old Clinical indication: Other vascular access device placement or adjustment; Central line, non-tunnelled; Patient HX: R triple lumen placement; Additional info: Line placement TECHNIQUE: Imaging protocol: XR of the chest. Views: 1 view. COMPARISON: CR (ABDOMEN, ) 08/21/2021 1:31 PM FINDINGS: Tubes, catheters and devices: Right jugular approach central venous catheter tip projects over the right atrium. Lungs: There are perihilar and bibasilar opacities. There is pulmonary vascular congestion. Pleural spaces: Bilateral pleural effusions with adjacent compressive atelectasis or infiltrate. Heart/Mediastinum: The heart border is obscured. Bones/joints: Unremarkable. XR/XR chest 1V portable [id number] IMPRESSION: 1. Central venous catheter tip projects over the right atrium. 2. Pulmonary vascular congestion and bilateral pleural effusions raises concern for congestive heart failure. 3. Perihilar and bibasilar opacities are nonspecific. Differential includes pulmonary edema and pneumonia. Radiation Dose CTDIVOL = (mGy): DLP = (mGy-cm)
--- NOTE | 2021-08-21 13:25 | XRR_ITS ---
PROCEDURE INFORMATION: Exam: XR Abdomen Exam date and time: 08/21/2021 1:25 PM Age: 65 years old Clinical indication: Nausea and vomiting; Additional info: N/v TECHNIQUE: Imaging protocol: XR of the abdomen. Views: 2 Views. Upright and supine views. COMPARISON: CT abdomen pelvis wo con [id number] 08/11/2021 12:18 AM FINDINGS: Lungs: Pulmonary vascular congestion. There are hazy bibasilar opacities. Pleural space: There are bilateral pleural effusions with underlying compressive atelectasis or infiltrate. Gastrointestinal tract: Normal. No bowel dilation. Intraperitoneal space: Normal. No free air. Bones/joints: Unremarkable for age. XR/XR acute abdomen series [id number] IMPRESSION: 1. Heart border is obscured. 2. Bilateral pleural effusions with pulmonary vascular congestion is raises concern for congestive heart failure. 3. Hazy bibasilar opacities may represent atelectasis, pulmonary edema, and or infiltrate. Radiation Dose CTDIVOL = (mGy): DLP = (mGy-cm)
--- NOTE | 2021-08-21 13:26 | ECG_ITS ---
[facility] Test Date: 2021-08-21 Pat Name: Cony Temple Department: Room: Gender: Female [employer]: : 1955 Requested By: Gerson Pastrana Order Number: [id number] Doug MD: Darby Leung M.D. Measurements Intervals [place] Rate: 95 P: 64 AR: 208 QRS: -13 QRSD: 110 T: 118 QT: 375 QTc: 472 Interpretive Statements SINUS RHYTHM ST DEVIATION AND MODERATE T-WAVE ABNORMALITY, CONSIDER LATERAL ISCHEMIA [-0.1+ mV T-WAVE IN I/aVL/V5/V6] Compared to ECG 08/11/2021 00:06:11 T-wave abnormality now present Possible ischemia now present Left ventricular hypertrophy no longer present ST (T wave) deviation no longer present Electronically Signed On 08-23-2021 12:43:23 MEMORY CARE DIRECTOR by Darby Leung M.D. [email or web address]
--- NOTE | 2021-08-21 13:27 | W.ED.GENADLT ---
Documented by User: Gerson Pastrana MD 08/21/21 17:57 HPI - General Adult General: Chief complaint: General Medical Stated complaint: N/V/D Time Seen by Provider: 08/21/21 13:18 History of Present Illness: HPI narrative: 65-year-old female with history of diabetic gastroparesis presents with few nausea dry heaving but no actual emesis and nonbloody diarrhea. Denies shortness of breath or chest pain but was noted by EMS to be desaturating to 88%. Not normally on oxygen but requires 3 L by nasal cannula to saturate in the mid 90s. Denies any fever or cough. Denies abdominal pain. She was recently discharged from the hospital a week ago for an episode of nausea and vomiting without acute finding on imaging except gallstones with no signs of cholecystitis. States she has been compliant with her insulin but blood glucose upon arrival is 500. Review of Systems Narrative: - CONSTITUTIONAL: Denies weight loss, fever and chills. - HEENT: Denies changes in vision and hearing. - RESPIRATORY: Denies SOB and cough. - CV: Denies palpitations and CP. - GI: As above - : Denies dysuria and urinary frequency. - MSK: Denies myalgia and joint pain. - SKIN: Denies rash and pruritus. - NEUROLOGICAL: Denies headache, weakness, numbness and syncope. - PSYCHIATRIC: Denies suicidal ideation Physical Exam Narrative: EXAM NARRATIVE: - GENERAL: On nasal cannula, alert and oriented x 3. No acute distress. Well-nourished. - EYES: EOMI. Anicteric. - HENT: Atraumatic, no C-spine tenderness. Moist mucous membranes. No scleral icterus. No cervical lymphadenopathy. - LUNGS: Bilateral wheezing - CARDIOVASCULAR: Regular rate and rhythm. No murmur. No JVD. - ABDOMEN: Soft, non-tender and non-distended. Negative CVA tenderness bilaterally, no rebound or guarding, negative Nichole sign. No palpable masses. - EXTREMITIES: No edema. Non-tender. - SKIN: No rashes or lesions. Warm. - NEUROLOGIC: No meningismus or focal neurological deficits. CN II-XII grossly intact. - PSYCHIATRIC: Cooperative. Appropriate mood and affect. Course Vital Signs: Vital signs: Vital Signs Temperature 97.7 F 08/21/21 13:13 Pulse Rate 79 08/21/21 21:21 Respiratory Rate 15 08/21/21 21:21 Blood Pressure 157/84 08/21/21 21:21 Pulse Oximetry 96 08/21/21 21:21 MDM - General Adult MDM Narrative: Medical decision making narrative: Six 5-year-old female with history of diabetic gastroparesis presents with from nausea. She is been having dry heaving but no vomiting. Also reports nonbloody diarrhea. Denies recent antibiotics. Had similar presentation recently however today she was also noted to be desaturating on room air and requires 3 L by nasal cannula. Has bilateral wheezing. Steroids and albuterol provided with improvement. Edition x-ray reveals bilateral opacities versus volume overload. ABG reveals combined acidosis. pH is 7.1. Bicarb provided. She continues to ventilate well otherwise and is compensated not requiring BiPAP support maintaining her airway. Lasix provided. At this time remainder of lab work is pending. X-ray does not reveal any signs of obstruction she recently had a CT scan during previous presentation. Overall appears volume overloaded and does not appear dry. Blood sugar is also elevated and insulin provided. Patient signed out to Dr. Fang. Lab Data: Labs: Lab Results 08/21/21 08/21/21 08/21/21 13:42 14:01 14:17 WBC RBC Hgb Hct MCV MCH MCHC RDW Plt Count MPV Neut % (Auto) Lymph % (Auto) Stark % (Auto) Eos % (Auto) Baso % (Auto) Neut # (Auto) Lymph # (Auto) Stark # (Auto) Eos # (Auto) Baso # (Auto) Nucleated RBC % (a uto) Nucleated RBCs # D-Dimer Specimen Type Arterial Sample Site Radial, right ABG pH 7.12 L* (7.35-7.45) ABG pCO2 40.7 mmHg mmHg (35-45) ABG pO2 66.3 mmHg L mmHg (80.0-100.0) ABG HCO3 13.3 mmol/L L mmo l/L (22-26) ABG O2 Saturation 88.6 ABG Base Excess -15.2 mmol/L L mm ol/L (-2.0-2.0) Tj Test Pos A-a O2 Gradient 10.8 mmHg H mmHg (5-10) Hematocrit 32.8 % L % (37-47) Hgb O2 Saturation 86.5 % L % (95-100) Carboxyhemoglobin 1.3 %THgb %THgb (0.4-20.1) Methemoglobin 1.1 % % (0.4-1.5) Total Hemoglobin 10.7 g/dL L g/dL (12-16) Sodium 135.0 mmol/L mmol /L (131-143) Potassium 6.8 mmol/L H mmol /L (3.5-5.0) Glucose 458.0 mg/dL H mg/ dL (70-115) Ionized Calcium 1.3 mmol/L mmol/L (1.1-1.4) O2 Delivery Device Nc O2 Liters/Min 2.0 % % FiO2 28.0 % % Metal Furniture Polisher ID Monro Chloride Carbon Dioxide Anion Gap BUN Creatinine GFR Calculation POC Glucose 432 mg/dL H mg/dL (70-110) Calculated Osmolal ity Calcium Phosphorus Magnesium Total Bilirubin AST ALT Alkaline Phosphata se Troponin T Baselin e Troponin T 120 Min marshall Delta Troponin T NT-Pro-B Natriuret Pep Total Protein Albumin Globulin Lipase Urine Color Yellow (Yellow) Urine Appearance Cloudy (CLEAR) Urine pH 5 (5-7) Ur Specific Gravit y 1.020 (1.005-1.030) Urine Protein 3+ H (Negative) Urine Glucose (UA) 4+ H (Normal) Urine Ketones 1+ H (Negative) Urine Blood Neg (Negative) Urine Nitrate Negative (Negative) Urine Bilirubin Neg (Negative) Urine Urobilinogen Norm mg/dL mg/dL (Negative) Ur Leukocyte Madyson ase Negative (Negative) Urine RBC None /hpf /hpf (0-2) Urine WBC 0-4 /hpf H /hpf (0-5) Ur Squamous Epith Cells 40-55 /hpf H /hpf (0-5) Ur Transition Epit h Cell 5-10 /hpf /hpf Amorphous Sediment Not Reportable Urine Bacteria 2+ /hpf H /hpf (NONE) Serum Ketones SARS-CoV-2 Ag (Rap id) 08/21/21 08/21/21 08/21/21 14:32 15:40 15:40 WBC 10.7 10^3/uL H 10 ^3/uL (4.0-10.0) RBC 3.93 10^6/uL L 10 ^6/uL (4.1-5.3) Hgb 11.3 g/dL L g/dL (11.5-15.3) Hct 38.1 % % (37.0-47.0) MCV 96.9 fl fl (81-99) MCH 28.8 pg pg (28.0-34.0) MCHC 29.7 g/dL L g/dL (30.0-36.0) RDW 12.7 % % (12.1-15.1) Plt Count 453 10^3/cmm H 10 ^3/cmm (130-400) MPV 11.1 fL H fL (7.4-10.4) Neut % (Auto) 88.4 % % Lymph % (Auto) 5.4 % % Stark % (Auto) 5.3 % % Eos % (Auto) 0.1 % % Baso % (Auto) 0.5 % % Neut # (Auto) 9.50 10^3/uL H 10 ^3/uL (1.8-7.7) Lymph # (Auto) 0.6 10^3/uL L 10^ 3/uL (0.8-4.8) Stark # (Auto) 0.6 10^3/uL 10^3/ uL (0.2-0.9) Eos # (Auto) 0.0 10^3/uL 10^3/ uL (0.0-0.8) Baso # (Auto) 0.1 10^3/uL 10^3/ uL (0.0-0.1) Nucleated RBC % (a uto) 0 % % Nucleated RBCs # 0.0 /100WBC /100W BC D-Dimer Cancelled Specimen Type Sample Site ABG pH ABG pCO2 ABG pO2 ABG HCO3 ABG O2 Saturation ABG Base Excess Tj Test A-a O2 Gradient Hematocrit Hgb O2 Saturation Carboxyhemoglobin Methemoglobin Total Hemoglobin Sodium Potassium Glucose Ionized Calcium O2 Delivery Device O2 Liters/Min FiO2 Metal Furniture Polisher ID Chloride Carbon Dioxide Anion Gap BUN Creatinine GFR Calculation POC Glucose Calculated Osmolal ity Calcium Phosphorus Magnesium Total Bilirubin AST ALT Alkaline Phosphata se Troponin T Baselin e Troponin T 120 Min marshall Delta Troponin T NT-Pro-B Natriuret Pep Total Protein Albumin Globulin Lipase Urine Color Urine Appearance Urine pH Ur Specific Gravit y Urine Protein Urine Glucose (UA) Urine Ketones Urine Blood Urine Nitrate Urine Bilirubin Urine Urobilinogen Ur Leukocyte Madyson ase Urine RBC Urine WBC Ur Squamous Epith Cells Ur Transition Epit h Cell Amorphous Sediment Urine Bacteria Serum Ketones SARS-CoV-2 Ag (Rap id) Negative (Negative) 08/21/21 08/21/21 08/21/21 15:40 15:40 15:40 WBC RBC Hgb Hct MCV MCH MCHC RDW Plt Count MPV Neut % (Auto) Lymph % (Auto) Stark % (Auto) Eos % (Auto) Baso % (Auto) Neut # (Auto) Lymph # (Auto) Stark # (Auto) Eos # (Auto) Baso # (Auto) Nucleated RBC % (a uto) Nucleated RBCs # D-Dimer Specimen Type Sample Site ABG pH ABG pCO2 ABG pO2 ABG HCO3 ABG O2 Saturation ABG Base Excess Tj Test A-a O2 Gradient Hematocrit Hgb O2 Saturation Carboxyhemoglobin Methemoglobin Total Hemoglobin Sodium Cancelled Potassium Cancelled Glucose Cancelled Ionized Calcium O2 Delivery Device O2 Liters/Min FiO2 Metal Furniture Polisher ID Chloride Cancelled Carbon Dioxide Cancelled Anion Gap Cancelled BUN Cancelled Creatinine Cancelled GFR Calculation Cancelled POC Glucose Calculated Osmolal ity Cancelled Calcium Cancelled Phosphorus Magnesium Total Bilirubin Cancelled AST Cancelled ALT Cancelled Alkaline Phosphata se Cancelled Troponin T Baselin e Cancelled Troponin T 120 Min marshall Delta Troponin T NT-Pro-B Natriuret Pep Cancelled Total Protein Cancelled Albumin Cancelled Globulin Cancelled Lipase Cancelled Urine Color Urine Appearance Urine pH Ur Specific Gravit y Urine Protein Urine Glucose (UA) Urine Ketones Urine Blood Urine Nitrate Urine Bilirubin Urine Urobilinogen Ur Leukocyte Madyson ase Urine RBC Urine WBC Ur Squamous Epith Cells Ur Transition Epit h Cell Amorphous Sediment Urine Bacteria Serum Ketones Cancelled SARS-CoV-2 Ag (Rap id) 08/21/21 08/21/21 08/21/21 17:37 17:37 17:37 WBC RBC Hgb Hct MCV MCH MCHC RDW Plt Count MPV Neut % (Auto) Lymph % (Auto) Stark % (Auto) Eos % (Auto) Baso % (Auto) Neut # (Auto) Lymph # (Auto) Stark # (Auto) Eos # (Auto) Baso # (Auto) Nucleated RBC % (a uto) Nucleated RBCs # D-Dimer Specimen Type Sample Site ABG pH ABG pCO2 ABG pO2 ABG HCO3 ABG O2 Saturation ABG Base Excess Tj Test A-a O2 Gradient Hematocrit Hgb O2 Saturation Carboxyhemoglobin Methemoglobin Total Hemoglobin Sodium 135 mmol/L L mmol /L (136-145) Potassium 8.4 mmol/L H* mmo l/L (3.5-5.1) Glucose 477 mg/dL H mg/dL (65-115) Ionized Calcium O2 Delivery Device O2 Liters/Min FiO2 Metal Furniture Polisher ID Chloride 106 mmol/L mmol/L (98-107) Carbon Dioxide 13 mmol/L L mmol/ L (22-29) Anion Gap 24.4 H (5-19) BUN 52 mg/dL H mg/dL (8-23) Creatinine 2.8 mg/dL H mg/dL (0.5-0.9) GFR Calculation 16.9 mL/min L mL/ min (90-130) POC Glucose Calculated Osmolal ity 315 mOsm/kg H mOs m/kg (285-295) Calcium 8.6 mg/dL mg/dL (8.5-10.5) Phosphorus Magnesium Total Bilirubin 0.3 mg/dL mg/dL (0.15-1.2) AST 26 U/L U/L (0-32) ALT 38 U/L H U/L (0-33) Alkaline Phosphata se 361 IU/L H IU/L (35-105) Troponin T Baselin e 205 ng/L H* ng/L (0-10) Troponin T 120 Min marshall Delta Troponin T NT-Pro-B Natriuret Pep 99776 pg/mL H pg/ mL (0-125) Total Protein 6.0 g/dL L g/dL (6.6-8.7) Albumin 3.7 g/dL g/dL (3.5-5.2) Globulin 2.3 g/dL g/dL (1.3-4.6) Lipase 16 U/L U/L (13-60) Urine Color Urine Appearance Urine pH Ur Specific Gravit y Urine Protein Urine Glucose (UA) Urine Ketones Urine Blood Urine Nitrate Urine Bilirubin Urine Urobilinogen Ur Leukocyte Madyson ase Urine RBC Urine WBC Ur Squamous Epith Cells Ur Transition Epit h Cell Amorphous Sediment Urine Bacteria Serum Ketones Negative (Negative) SARS-CoV-2 Ag (Rap id) 08/21/21 08/21/21 08/21/21 17:37 19:58 20:37 WBC RBC Hgb Hct MCV MCH MCHC RDW Plt Count MPV Neut % (Auto) Lymph % (Auto) Stark % (Auto) Eos % (Auto) Baso % (Auto) Neut # (Auto) Lymph # (Auto) Stark # (Auto) Eos # (Auto) Baso # (Auto) Nucleated RBC % (a uto) Nucleated RBCs # D-Dimer 0.99 ug/mIFEU H u g/mIFEU (0-0.59) Specimen Type Sample Site ABG pH ABG pCO2 ABG pO2 ABG HCO3 ABG O2 Saturation ABG Base Excess Tj Test A-a O2 Gradient Hematocrit Hgb O2 Saturation Carboxyhemoglobin Methemoglobin Total Hemoglobin Sodium Potassium Glucose Ionized Calcium O2 Delivery Device O2 Liters/Min FiO2 Metal Furniture Polisher ID Chloride Carbon Dioxide Anion Gap BUN Creatinine GFR Calculation POC Glucose 420 mg/dL H mg/dL (70-110) Calculated Osmolal ity Calcium Phosphorus Magnesium Total Bilirubin AST ALT Alkaline Phosphata se Troponin T Baselin e Troponin T 120 Min marshall 432.7 ng/L H ng/L (0-10) Delta Troponin T 227.7 ABS# H* ABS # (0-10) NT-Pro-B Natriuret Pep Total Protein Albumin Globulin Lipase Urine Color Urine Appearance Urine pH Ur Specific Gravit y Urine Protein Urine Glucose (UA) Urine Ketones Urine Blood Urine Nitrate Urine Bilirubin Urine Urobilinogen Ur Leukocyte Madyson ase Urine RBC Urine WBC Ur Squamous Epith Cells Ur Transition Epit h Cell Amorphous Sediment Urine Bacteria Serum Ketones SARS-CoV-2 Ag (Rap id) 08/21/21 08/21/21 08/21/21 20:37 20:37 21:32 WBC RBC Hgb Hct MCV MCH MCHC RDW Plt Count MPV Neut % (Auto) Lymph % (Auto) Stark % (Auto) Eos % (Auto) Baso % (Auto) Neut # (Auto) Lymph # (Auto) Stark # (Auto) Eos # (Auto) Baso # (Auto) Nucleated RBC % (a uto) Nucleated RBCs # D-Dimer Specimen Type Sample Site ABG pH ABG pCO2 ABG pO2 ABG HCO3 ABG O2 Saturation ABG Base Excess Tj Test A-a O2 Gradient Hematocrit Hgb O2 Saturation Carboxyhemoglobin Methemoglobin Total Hemoglobin Sodium 135 mmol/L L mmol /L (136-145) Potassium 7.0 mmol/L H* mmo l/L (3.5-5.1) Glucose 420 mg/dL H mg/dL (65-115) Ionized Calcium O2 Delivery Device O2 Liters/Min FiO2 Metal Furniture Polisher ID Chloride 107 mmol/L mmol/L (98-107) Carbon Dioxide 14 mmol/L L mmol/ L (22-29) Anion Gap 21.0 H (5-19) BUN 55 mg/dL H mg/dL (8-23) Creatinine 3.0 mg/dL H mg/dL (0.5-0.9) GFR Calculation 15.6 mL/min L mL/ min (90-130) POC Glucose 350 mg/dL H mg/dL (70-110) Calculated Osmolal ity 313 mOsm/kg H mOs m/kg (285-295) Calcium 7.7 mg/dL L mg/dL (8.5-10.5) Phosphorus 3.4 mg/dL mg/dL (2.5-4.5) Magnesium 1.9 mg/dL mg/dL (1.7-2.3) Total Bilirubin AST ALT Alkaline Phosphata se Troponin T Baselin e Troponin T 120 Min marshall Delta Troponin T NT-Pro-B Natriuret Pep Total Protein Albumin Globulin Lipase Urine Color Urine Appearance Urine pH Ur Specific Gravit y Urine Protein Urine Glucose (UA) Urine Ketones Urine Blood Urine Nitrate Urine Bilirubin Urine Urobilinogen Ur Leukocyte Madyson ase Urine RBC Urine WBC Ur Squamous Epith Cells Ur Transition Epit h Cell Amorphous Sediment Urine Bacteria Serum Ketones SARS-CoV-2 Ag (Rap id) EKG Data^: EKG 1: Computer generated interpretation: Chest X-Ray 08/21/21 03:22 IMPRESSION: 1. Central venous catheter tip projects over the right atrium. 2. Pulmonary vascular congestion and bilateral pleural effusions raises concern for congestive heart failure. 3. Perihilar and bibasilar opacities are nonspecific. Differential includes pulmonary edema and pneumonia. Radiation Dose CTDIVOL = (mGy): DLP = (mGy-cm) Chest/Abdomen X-ray 08/21/21 13:25 IMPRESSION: 1. Heart border is obscured. 2. Bilateral pleural effusions with pulmonary vascular congestion is raises concern for congestive heart failure. 3. Hazy bibasilar opacities may represent atelectasis, pulmonary edema, and or infiltrate. Radiation Dose CTDIVOL = (mGy): DLP = (mGy-cm) Gallbladder Ultrasound 08/21/21 21:33 IMPRESSION: 1. There are stones and sludge in the gallbladder and a positive sonographic Nichole sign. However gallbladder wall is normal in thickness and there is no pericholecystic fluid. 2. Right pleural effusion. Radiation Dose CTDIVOL = (mGy): DLP = (mGy-cm) Other EKG comments: Sinus rhythm at 95, there are ST depressions and T wave inversions in lateral leads however there is no reciprocal change. This is also similar to previous EKG from early August of this year. Discharge Plan Discharge Patient Disposition: Admitted As Inpatient Admit Provider: Lam Zhang Clinical Impression: Acute respiratory failure with hypoxia, Acute pulmonary edema, Acute hyperkalemia Acute renal failure superimposed on chronic kidney disease Qualifiers: Acute renal failure type: unspecified Condition: Critical Coding Level of Care Code ED Milling General Superintendent for Chg Fwd Documented by User: Rodrigue Fang DO 08/21/21 23:36 HPI - General Adult General: Chief complaint: General Medical Stated complaint: N/V/D Time Seen by Provider: 08/21/21 13:18 Procedures Central Line Placement Right IJ: Time Out Performed: No Patient Placed on Monitor/Pulse Ox: Yes MD Prep: mask, gown and gloves Central Line Prep: Povidone-Iodine 1% and Chlorhexidine scrub Local Anesthetic: lidocaine 1% Amount of anesthesia used (mL): 3 Ultrasound Used for Placement: Yes Central Line Lumen Inserted: triple Post Procedure: sutured in place, good blood return, all ports aspirated, flushed, capped and sterile dressing applied Post Procedure X-Ray: tip of catheter in good position (Right atrium) Patient Tolerated Procedure: well and no complications Complications: none Course Consultations: Consultation #1: katt Consultation #2: nixon Time: 21:27 Vital Signs: Vital signs: Vital Signs Temperature 97.7 F 08/21/21 13:13 Pulse Rate 79 11/14/21 21:21 Respiratory Rate 15 08/21/21 21:21 Blood Pressure 157/84 08/21/21 21:21 Pulse Oximetry 96 08/21/21 21:21 MDM - General Adult MDM Narrative: Medical decision making narrative: 65-year-old lady checked out to me at shift change by the previous physician. This lady had been sick with vomiting and shortness of breath. She has a history of diabetes. Blood sugar was found to be elevated. She is acidotic at 7.1 with a low bicarbonate level, a creatinine of 2.8, and a potassium of 8.4. Triple-lumen catheter placed. She has been given 2 L of fluid, even though she has pulmonary edema on x-ray, felt important to replete her intravascularly given her creatinine, hyperkalemia, and acidosis with elevated blood sugar. She is also had insulin bolus for the potassium, as well as started on IV insulin drip. She is placed on BiPAP for the pulmonary edema as well. Her troponin is significantly elevated, although this could be due to renal failure or pulmonary edema. Her EKG showed lateral ST depression in the precordial leads without ST elevation. Obviously she would not be a cardiac catheterization lab candidate currently given her comorbidities at this point.Repeat BMP to check potassium level is pending. Family had raised concern about a recent gallbladder ultrasound showing stones, and they were told that the bile duct may be dilated due to a stone. The caliber of the bile duct on the gallbladder ultrasound is read as normal. Spoke with hospitalist. Agrees with repeat BMP. He will evaluate in the ER. Current vitals sinus rhythm at 70, blood pressure 157/84, oxygenation 97% on BiPAP. Respiratory rate is 15. She will go to the ICU. Delta troponin came back at 200 which is concerning. Consulted cardiology. EKG findings were reviewed. Based on EKG findings, delta troponin, and comorbidities, radiology states not the best candidate for cardiac catheterization tonight. Recommendations are heparin drip, aspirin, no Plavix. Echo in the morning. Reassess in the am after 6h troponin and above. Lab Data: Labs: Lab Results 08/21/21 08/21/21 08/21/21 13:42 14:01 14:17 WBC RBC Hgb Hct MCV MCH MCHC RDW Plt Count MPV Neut % (Auto) Lymph % (Auto) Stark % (Auto) Eos % (Auto) Baso % (Auto) Neut # (Auto) Lymph # (Auto) Stark # (Auto) Eos # (Auto) Baso # (Auto) Nucleated RBC % (a uto) Nucleated RBCs # D-Dimer Specimen Type Arterial Sample Site Radial, right ABG pH 7.12 L* (7.35-7.45) ABG pCO2 40.7 mmHg mmHg (35-45) ABG pO2 66.3 mmHg L mmHg (80.0-100.0) ABG HCO3 13.3 mmol/L L mmo l/L (22-26) ABG O2 Saturation 88.6 ABG Base Excess -15.2 mmol/L L mm ol/L (-2.0-2.0) Tj Test Pos A-a O2 Gradient 10.8 mmHg H mmHg (5-10) Hematocrit 32.8 % L % (37-47) Hgb O2 Saturation 86.5 % L % (95-100) Carboxyhemoglobin 1.3 %THgb %THgb (0.4-20.1) Methemoglobin 1.1 % % (0.4-1.5) Total Hemoglobin 10.7 g/dL L g/dL (12-16) Sodium 135.0 mmol/L mmol /L (131-143) Potassium 6.8 mmol/L H mmol /L (3.5-5.0) Glucose 458.0 mg/dL H mg/ dL (70-115) Ionized Calcium 1.3 mmol/L mmol/L (1.1-1.4) O2 Delivery Device Nc O2 Liters/Min 2.0 % % FiO2 28.0 % % Metal Furniture Polisher ID Monro Chloride Carbon Dioxide Anion Gap BUN Creatinine GFR Calculation POC Glucose 432 mg/dL H mg/dL (70-110) Calculated Osmolal ity Calcium Phosphorus Magnesium Total Bilirubin AST ALT Alkaline Phosphata se Troponin T Baselin e Troponin T 120 Min marshall Delta Troponin T NT-Pro-B Natriuret Pep Total Protein Albumin Globulin Lipase Urine Color Yellow (Yellow) Urine Appearance Cloudy (CLEAR) Urine pH 5 (5-7) Ur Specific Gravit y 1.020 (1.005-1.030) Urine Protein 3+ H (Negative) Urine Glucose (UA) 4+ H (Normal) Urine Ketones 1+ H (Negative) Urine Blood Neg (Negative) Urine Nitrate Negative (Negative) Urine Bilirubin Neg (Negative) Urine Urobilinogen Norm mg/dL mg/dL (Negative) Ur Leukocyte Madyson ase Negative (Negative) Urine RBC None /hpf /hpf (0-2) Urine WBC 0-4 /hpf H /hpf (0-5) Ur Squamous Epith Cells 40-55 /hpf H /hpf (0-5) Ur Transition Epit h Cell 5-10 /hpf /hpf Amorphous Sediment Not Reportable Urine Bacteria 2+ /hpf H /hpf (NONE) Serum Ketones SARS-CoV-2 Ag (Rap id) 08/21/21 08/21/21 08/21/21 14:32 15:40 15:40 WBC 10.7 10^3/uL H 10 ^3/uL (4.0-10.0) RBC 3.93 10^6/uL L 10 ^6/uL (4.1-5.3) Hgb 11.3 g/dL L g/dL (11.5-15.3) Hct 38.1 % % (37.0-47.0) MCV 96.9 fl fl (81-99) MCH 28.8 pg pg (28.0-34.0) MCHC 29.7 g/dL L g/dL (30.0-36.0) RDW 12.7 % % (12.1-15.1) Plt Count 453 10^3/cmm H 10 ^3/cmm (130-400) MPV 11.1 fL H fL (7.4-10.4) Neut % (Auto) 88.4 % % Lymph % (Auto) 5.4 % % Stark % (Auto) 5.3 % % Eos % (Auto) 0.1 % % Baso % (Auto) 0.5 % % Neut # (Auto) 9.50 10^3/uL H 10 ^3/uL (1.8-7.7) Lymph # (Auto) 0.6 10^3/uL L 10^ 3/uL (0.8-4.8) Stark # (Auto) 0.6 10^3/uL 10^3/ uL (0.2-0.9) Eos # (Auto) 0.0 10^3/uL 10^3/ uL (0.0-0.8) Baso # (Auto) 0.1 10^3/uL 10^3/ uL (0.0-0.1) Nucleated RBC % (a uto) 0 % % Nucleated RBCs # 0.0 /100WBC /100W BC D-Dimer Cancelled Specimen Type Sample Site ABG pH ABG pCO2 ABG pO2 ABG HCO3 ABG O2 Saturation ABG Base Excess Tj Test A-a O2 Gradient Hematocrit Hgb O2 Saturation Carboxyhemoglobin Methemoglobin Total Hemoglobin Sodium Potassium Glucose Ionized Calcium O2 Delivery Device O2 Liters/Min FiO2 Metal Furniture Polisher ID Chloride Carbon Dioxide Anion Gap BUN Creatinine GFR Calculation POC Glucose Calculated Osmolal ity Calcium Phosphorus Magnesium Total Bilirubin AST ALT Alkaline Phosphata se Troponin T Baselin e Troponin T 120 Min marshall Delta Troponin T NT-Pro-B Natriuret Pep Total Protein Albumin Globulin Lipase Urine Color Urine Appearance Urine pH Ur Specific Gravit y Urine Protein Urine Glucose (UA) Urine Ketones Urine Blood Urine Nitrate Urine Bilirubin Urine Urobilinogen Ur Leukocyte Madyson ase Urine RBC Urine WBC Ur Squamous Epith Cells Ur Transition Epit h Cell Amorphous Sediment Urine Bacteria Serum Ketones SARS-CoV-2 Ag (Rap id) Negative (Negative) 08/21/21 08/21/21 08/21/21 15:40 15:40 15:40 WBC RBC Hgb Hct MCV MCH MCHC RDW Plt Count MPV Neut % (Auto) Lymph % (Auto) Stark % (Auto) Eos % (Auto) Baso % (Auto) Neut # (Auto) Lymph # (Auto) Stark # (Auto) Eos # (Auto) Baso # (Auto) Nucleated RBC % (a uto) Nucleated RBCs # D-Dimer Specimen Type Sample Site ABG pH ABG pCO2 ABG pO2 ABG HCO3 ABG O2 Saturation ABG Base Excess Tj Test A-a O2 Gradient Hematocrit Hgb O2 Saturation Carboxyhemoglobin Methemoglobin Total Hemoglobin Sodium Cancelled Potassium Cancelled Glucose Cancelled Ionized Calcium O2 Delivery Device O2 Liters/Min FiO2 Metal Furniture Polisher ID Chloride Cancelled Carbon Dioxide Cancelled Anion Gap Cancelled BUN Cancelled Creatinine Cancelled GFR Calculation Cancelled POC Glucose Calculated Osmolal ity Cancelled Calcium Cancelled Phosphorus Magnesium Total Bilirubin Cancelled AST Cancelled ALT Cancelled Alkaline Phosphata se Cancelled Troponin T Baselin e Cancelled Troponin T 120 Min marshall Delta Troponin T NT-Pro-B Natriuret Pep Cancelled Total Protein Cancelled Albumin Cancelled Globulin Cancelled Lipase Cancelled Urine Color Urine Appearance Urine pH Ur Specific Gravit y Urine Protein Urine Glucose (UA) Urine Ketones Urine Blood Urine Nitrate Urine Bilirubin Urine Urobilinogen Ur Leukocyte Madyson ase Urine RBC Urine WBC Ur Squamous Epith Cells Ur Transition Epit h Cell Amorphous Sediment Urine Bacteria Serum Ketones Cancelled SARS-CoV-2 Ag (Rap id) 08/21/21 08/21/21 08/21/21 17:37 17:37 17:37 WBC RBC Hgb Hct MCV MCH MCHC RDW Plt Count MPV Neut % (Auto) Lymph % (Auto) Stark % (Auto) Eos % (Auto) Baso % (Auto) Neut # (Auto) Lymph # (Auto) Stark # (Auto) Eos # (Auto) Baso # (Auto) Nucleated RBC % (a uto) Nucleated RBCs # D-Dimer Specimen Type Sample Site ABG pH ABG pCO2 ABG pO2 ABG HCO3 ABG O2 Saturation ABG Base Excess Tj Test A-a O2 Gradient Hematocrit Hgb O2 Saturation Carboxyhemoglobin Methemoglobin Total Hemoglobin Sodium 135 mmol/L L mmol /L (136-145) Potassium 8.4 mmol/L H* mmo l/L (3.5-5.1) Glucose 477 mg/dL H mg/dL (65-115) Ionized Calcium O2 Delivery Device O2 Liters/Min FiO2 Metal Furniture Polisher ID Chloride 106 mmol/L mmol/L (98-107) Carbon Dioxide 13 mmol/L L mmol/ L (22-29) Anion Gap 24.4 H (5-19) BUN 52 mg/dL H mg/dL (8-23) Creatinine 2.8 mg/dL H mg/dL (0.5-0.9) GFR Calculation 16.9 mL/min L mL/ min (90-130) POC Glucose Calculated Osmolal ity 315 mOsm/kg H mOs m/kg (285-295) Calcium 8.6 mg/dL mg/dL (8.5-10.5) Phosphorus Magnesium Total Bilirubin 0.3 mg/dL mg/dL (0.15-1.2) AST 26 U/L U/L (0-32) ALT 38 U/L H U/L (0-33) Alkaline Phosphata se 361 IU/L H IU/L (35-105) Troponin T Baselin e 205 ng/L H* ng/L (0-10) Troponin T 120 Min marshall Delta Troponin T NT-Pro-B Natriuret Pep 16761 pg/mL H pg/ mL (0-125) Total Protein 6.0 g/dL L g/dL (6.6-8.7) Albumin 3.7 g/dL g/dL (3.5-5.2) Globulin 2.3 g/dL g/dL (1.3-4.6) Lipase 16 U/L U/L (13-60) Urine Color Urine Appearance Urine pH Ur Specific Gravit y Urine Protein Urine Glucose (UA) Urine Ketones Urine Blood Urine Nitrate Urine Bilirubin Urine Urobilinogen Ur Leukocyte Madyson ase Urine RBC Urine WBC Ur Squamous Epith Cells Ur Transition Epit h Cell Amorphous Sediment Urine Bacteria Serum Ketones Negative (Negative) SARS-CoV-2 Ag (Rap id) 08/21/21 08/21/21 08/21/21 17:37 19:58 20:37 WBC RBC Hgb Hct MCV MCH MCHC RDW Plt Count MPV Neut % (Auto) Lymph % (Auto) Stark % (Auto) Eos % (Auto) Baso % (Auto) Neut # (Auto) Lymph # (Auto) Stark # (Auto) Eos # (Auto) Baso # (Auto) Nucleated RBC % (a uto) Nucleated RBCs # D-Dimer 0.99 ug/mIFEU H u g/mIFEU (0-0.59) Specimen Type Sample Site ABG pH ABG pCO2 ABG pO2 ABG HCO3 ABG O2 Saturation ABG Base Excess Tj Test A-a O2 Gradient Hematocrit Hgb O2 Saturation Carboxyhemoglobin Methemoglobin Total Hemoglobin Sodium Potassium Glucose Ionized Calcium O2 Delivery Device O2 Liters/Min FiO2 Metal Furniture Polisher ID Chloride Carbon Dioxide Anion Gap BUN Creatinine GFR Calculation POC Glucose 420 mg/dL H mg/dL (70-110) Calculated Osmolal ity Calcium Phosphorus Magnesium Total Bilirubin AST ALT Alkaline Phosphata se Troponin T Baselin e Troponin T 120 Min marshall 432.7 ng/L H ng/L (0-10) Delta Troponin T 227.7 ABS# H* ABS # (0-10) NT-Pro-B Natriuret Pep Total Protein Albumin Globulin Lipase Urine Color Urine Appearance Urine pH Ur Specific Gravit y Urine Protein Urine Glucose (UA) Urine Ketones Urine Blood Urine Nitrate Urine Bilirubin Urine Urobilinogen Ur Leukocyte Madyson ase Urine RBC Urine WBC Ur Squamous Epith Cells Ur Transition Epit h Cell Amorphous Sediment Urine Bacteria Serum Ketones SARS-CoV-2 Ag (Rap id) 08/21/21 08/21/21 08/21/21 20:37 20:37 21:32 WBC RBC Hgb Hct MCV MCH MCHC RDW Plt Count MPV Neut % (Auto) Lymph % (Auto) Stark % (Auto) Eos % (Auto) Baso % (Auto) Neut # (Auto) Lymph # (Auto) Stark # (Auto) Eos # (Auto) Baso # (Auto) Nucleated RBC % (a uto) Nucleated RBCs # D-Dimer Specimen Type Sample Site ABG pH ABG pCO2 ABG pO2 ABG HCO3 ABG O2 Saturation ABG Base Excess Tj Test A-a O2 Gradient Hematocrit Hgb O2 Saturation Carboxyhemoglobin Methemoglobin Total Hemoglobin Sodium 135 mmol/L L mmol /L (136-145) Potassium 7.0 mmol/L H* mmo l/L (3.5-5.1) Glucose 420 mg/dL H mg/dL (65-115) Ionized Calcium O2 Delivery Device O2 Liters/Min FiO2 Metal Furniture Polisher ID Chloride 107 mmol/L mmol/L (98-107) Carbon Dioxide 14 mmol/L L mmol/ L (22-29) Anion Gap 21.0 H (5-19) BUN 55 mg/dL H mg/dL (8-23) Creatinine 3.0 mg/dL H mg/dL (0.5-0.9) GFR Calculation 15.6 mL/min L mL/ min (90-130) POC Glucose 350 mg/dL H mg/dL (70-110) Calculated Osmolal ity 313 mOsm/kg H mOs m/kg (285-295) Calcium 7.7 mg/dL L mg/dL (8.5-10.5) Phosphorus 3.4 mg/dL mg/dL (2.5-4.5) Magnesium 1.9 mg/dL mg/dL (1.7-2.3) Total Bilirubin AST ALT Alkaline Phosphata se Troponin T Baselin e Troponin T 120 Min marshall Delta Troponin T NT-Pro-B Natriuret Pep Total Protein Albumin Globulin Lipase Urine Color Urine Appearance Urine pH Ur Specific Gravit y Urine Protein Urine Glucose (UA) Urine Ketones Urine Blood Urine Nitrate Urine Bilirubin Urine Urobilinogen Ur Leukocyte Madyson ase Urine RBC Urine WBC Ur Squamous Epith Cells Ur Transition Epit h Cell Amorphous Sediment Urine Bacteria Serum Ketones SARS-CoV-2 Ag (Rap id) EKG Data^: EKG 1: Computer generated interpretation: Chest X-Ray 08/21/21 03:22 IMPRESSION: 1. Central venous catheter tip projects over the right atrium. 2. Pulmonary vascular congestion and bilateral pleural effusions raises concern for congestive heart failure. 3. Perihilar and bibasilar opacities are nonspecific. Differential includes pulmonary edema and pneumonia. Radiation Dose CTDIVOL = (mGy): DLP = (mGy-cm) Chest/Abdomen X-ray 08/21/21 13:25 IMPRESSION: 1. Heart border is obscured. 2. Bilateral pleural effusions with pulmonary vascular congestion is raises concern for congestive heart failure. 3. Hazy bibasilar opacities may represent atelectasis, pulmonary edema, and or infiltrate. Radiation Dose CTDIVOL = (mGy): DLP = (mGy-cm) Gallbladder Ultrasound 08/21/21 21:33 IMPRESSION: 1. There are stones and sludge in the gallbladder and a positive sonographic Nichole sign. However gallbladder wall is normal in thickness and there is no pericholecystic fluid. 2. Right pleural effusion. Radiation Dose CTDIVOL = (mGy): DLP = (mGy-cm) Critical Care Time Critical Care Time: Critical Care Time: Yes Total Critical Care Time: 45 Attestation: This case had a high probability of a clinically significant, sudden, or life threatening deterioration of this patient's condition which required my full and direct attention, intervention and personal management. Critical care time is independent of any procedures performed including triple-lumen catheter placement. Discharge Plan Discharge Patient Disposition: Admitted As Inpatient Admit Provider: Lam Zhang Clinical Impression: Acute respiratory failure with hypoxia, Acute pulmonary edema, Acute hyperkalemia Acute renal failure superimposed on chronic kidney disease Qualifiers: Acute renal failure type: unspecified Condition: Critical Coding Level of Care Code ED Milling General Superintendent for Vikas Osorio
[2021-08-21] MEDS: ipratropium-albuterol 3 mL Neb INHALATION (13:45)
[2021-08-21 13:54] LABS: ABG PCO2 40.7 mmHg (35-45); Arterial Blood Gas Hematocrit 32.8 % (37-47); Base Excess ABG -15.2 mmol/L (-2.0-2.0); Blood Gas Allen Test Pos; Blood Gas Sample Type Arterial; Carboxyhemoglobin 1.3 %THgb (0.4-20.1); HCO3 ABG 13.3 mmol/L (22-26); HGB O2 Sat 86.5 % (95-100); Ionized Calcium Level - ABG 1.3 mmol/L (1.1-1.4); Methemoglobin 1.1 % (0.4-1.5); Oxygen Saturation ABG 88.6; PO2 ABG 66.3 mmHg (80.0-100.0); Potassium Level - ABG 6.8 mmol/L (3.5-5.0); Total Hemoglobin 10.7 g/dL (12-16)
[2021-08-21 13:55] LABS: ABG PH Result 7.12 (7.35-7.45); Alveolar-Arterial Oxygen Gradi 10.8 mmHg (5-10); Blood Gas Operator Identificat MONRO; Blood Gas Sample Site Radial, right; Oxygen Device NC
[2021-08-21] MEDS: ondansetron 2 mg/ML SDV 2 mL 4 MG IVP (14:34)
[2021-08-21 14:36] LABS: Bilirubin Urine Neg (Negative); Blood Urine Neg (Negative); Glucose Urine UA 4+ (Normal); Ketones Urine 1+ (Negative); Leukocyte Esterase Urine Negative (Negative); Nitrate Urine Negative (Negative); Protein Urine 3+ (Negative); Urine Appearance Cloudy (CLEAR); Urine Color Yellow (Yellow); Urobilinogen Urine Norm (Negative); pH Urine 5 (5-7)
[2021-08-21] MEDS: insulin regular-human 100 units/1 mL 10 UNIT IVP (14:39)
[2021-08-21 14:57] LABS: Bacteria Urine 2+ /hpf; Squamous Epithelial Cell Urine 40-55 /hpf (0-5); WBC Urine 0-4 /hpf (0-5)
[2021-08-21 14:58] LABS: Add Urine Culture? No
--- NOTE | 2021-08-21 15:26 | ECG_ITS ---
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 Measurements Intervals [place] Rate: 84 P: 54 [place]: 211 QRS: -25 QRSD: 122 T: 61 QT: 409 QTc: 486 Interpretive Statements SINUS RHYTHM WITH FIRST DEGREE AV BLOCK BORDERLINE LEFT AXIS DEVIATION [QRS AXIS < -20] MODERATE INTRAVENTRICULAR CONDUCTION DELAY [110+ ms QRS DURATION] ST DEVIATION AND MODERATE T-WAVE ABNORMALITY, CONSIDER LATERAL ISCHEMIA Compared to ECG 08/21/2021 13:44:28 First degree AV block now present Intraventricular conduction delay now present Possible ischemia no longer present T-wave abnormality still present Electronically Signed On 08-23-2021 13:07:23 MANAGER ORDER by Darby Leung M.D. [id number]
[2021-08-21] MEDS: sodium bicarbonate 8.4% 1 mEq/mL 50mL Syr 25 MEQ IVP (15:29)
[2021-08-21 16:03] LABS: Basophils # 0.1 10^3/uL (0.0-0.1); Basophils % 0.5 %; Eosinophils % 0.1 %; Hematocrit 38.1 % (37.0-47.0); Hemoglobin 11.3 g/dL (11.5-15.3); Lymphocytes # 0.6 10^3/uL (0.8-4.8); Lymphocytes % 5.4 %; Mean Corpuscular HGB Conc 29.7 g/dL (30.0-36.0); Mean Corpuscular Hemoglobin 28.8 pg (28.0-34.0); Mean Corpuscular Volume 96.9 fl (81-99); Mean Platelet Volume 11.1 fL (7.4-10.4); Monocytes # 0.6 10^3/uL (0.2-0.9); Monocytes % 5.3 %; Neutrophils % 88.4 %; Nucleated Red Blood Cells % 0 %; Platelet Count 453 10^3/cmm (130-400); Red Blood Count 3.93 10^6/uL (4.1-5.3); Red Cell Distribution Width 12.7 % (12.1-15.1); White Blood Count 10.7 10^3/uL (4.0-10.0)
[2021-08-21 16:08] LABS: SARS Covid-2 Antigen Negative (Negative)
[2021-08-21] MEDS: FUROsemide 10 mg/mL SDV 4mL 40 MG IVP (18:02)
[2021-08-21 18:07] LABS: D Dimer 0.99 ug/mIFEU (0-0.59)
[2021-08-21 18:10] LABS: Troponin(5th) Baseline 205 ng/L (0-10)
[2021-08-21 18:17] LABS: Alanine Aminotransferase 38 U/L (0-33); Albumin Level 3.7 g/dL (3.5-5.2); Alkaline Phosphatase 361 IU/L (35-105); Anion Gap 24.4 (5-19); Aspartate Amino Transferase 26 U/L (0-32); Blood Urea Nitrogen 52 mg/dL (8-23); Calcium 8.6 mg/dL (8.5-10.5); Carbon Dioxide 13 mmol/L (22-29); Chloride 106 mmol/L (98-107); Globulin 2.3 g/dL (1.3-4.6); Glomerular Filtration Rate 16.9 mL/min (90-130); Glucose 477 mg/dL (65-115); Lipase 16 U/L (13-60); Osmolality Calculated 315 mOsm/kg (285-295); Sodium 135 mmol/L (136-145); Total Bilirubin 0.3 mg/dL (0.15-1.2)
[2021-08-21 18:24] LABS: Potassium 8.4 mmol/L (3.5-5.1)
[2021-08-21 18:30] LABS: Ketone (Acetest) Serum Negative (Negative)
--- NOTE | 2021-08-21 18:34 | PC.NURSE ---
AT APPROXIMATELY 1340, THIS NURSE ATTEMPTED TO PULL FROM PATIENT ESTABLISHED IV BY EMS AND WAS UNSUCCESSFUL AT THIS TIME. THIS NURSE THEN ATTEMPTED TO USE STRAIGHT STICK ON PATIENT X 2 AND WAS UNSUCCESSFUL AT THIS TIME. LAB WAS CALLED TO DRAW BLOOD. AT APPROXIMATELY 1415, LAB WAS IN ROOM. ATTEMPTED TO DRAW BLOOD FROM X 4 AND WAS UNSUCCESSFUL AT THIS TIME. PROOF INSPECTOR STATED THAT SHE WOULD JUST GET A FLASH OF BLOOD AND NOTHING ELSE. AT APPROXIMATELY 1500, 2ND NURSE WAS ASKED TO START IV VIA ULTRASOUND. IV WAS ATTEMPTED AND PATENT, BUT BLOOD DRAW WAS UNSUCCESSFUL. PHYSICIAN NOTIFIED THAT MULTIPLE BLOOD DRAW ATTEMPTS HAVE BEEN UNSUCCESSFUL AND PHYSICIAN TOLD THIS NURSE TO FIND A MORE EXPERIENCED NURSE TO TRY BECAUSE I CAN'T DO ANYTHING WITH HER UNTIL THEN. AT APPROXIMATELY 1530, 3RD NURSE ATTEMPTED IV START. NURSE SUCCESSFUL INSERTED 22 IV IN RIGHT FOREARM WITH BLOOD RETURN. BLOOD SENT TO LAB. BLOOD HEMOLYZED. AT APPROXIMATELY 1605, LAB RETURNED TO ATTEMPTED TO DRAW BLOOD X 4 AND WAS UNSUCCESSFUL AT THIS TIME. AT APPROXIMATELY 1630, PHYSICIAN REQUEST FOR RESPIRATORY THERAPY ARTERIAL STICK ENTERED. AT APPROXIMATELY 1737, LABS COLLECTED BY RT AND IN LAB. LABS RESULTED AT APPROXIMATELY 1822. CRITICAL NOTED. NEW PHYSICIAN NOTIFIED OF CRITICAL LABS AND CAUSE FOR DELAY.
[2021-08-21] MEDS: midazolam 1 mg/mL INJ 2 mL IVP (19:01)
--- NOTE | 2021-08-21 19:26 | ECG_ITS ---
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 Measurements Intervals [place] Rate: 80 P: 50 [place]: 176 QRS: -26 QRSD: 96 T: 67 QT: 396 QTc: 458 Interpretive Statements SINUS RHYTHM BORDERLINE LEFT AXIS DEVIATION [QRS AXIS < -20] NONSPECIFIC ST & T-WAVE ABNORMALITY Compared to ECG 08/21/2021 17:54:33 First degree AV block no longer present Intraventricular conduction delay no longer present T-wave abnormality still present Electronically Signed On 08-23-2021 13:06:16 TALENT ACQUISITION RELATIONSHIP MANAGER by Darby Leung M.D. [id number]
[2021-08-21 19:42] LABS: Glucose Point of Care 432 mg/dL (70-110)
[2021-08-21] MEDS: sodium chloride 0.9% 1,000 ML 999 ML IV (20:04)
[2021-08-21 20:11] LABS: Glucose Point of Care 420 mg/dL (70-110)
[2021-08-21] MEDS: insulin regular-human 100 units/1 mL 5 UNIT IVP (20:15)
[2021-08-21] MEDS: insulin regular-human 250 UNIT in sodium chloride 0.9% 250 ML 10.91 UNIT IV (20:24)
[2021-08-21] MEDS: calcium chloride 10% Syr 10 mL 1 GM IVP (20:28)
--- NOTE | 2021-08-21 20:48 | PC.NURSE ---
1944 CENTRAL LINE PLACED TO R NECK 3 LUMEN, 7 ESTONIAN. BLOOD RETURN POSITIVE. XRAY DONE
[2021-08-21 21:13] LABS: Troponin 5 2HR 432.7 ng/L (0-10); Troponin 5 2HR Delta 227.7 ABS# (0-10)
[2021-08-21 21:16] LABS: Blood Urea Nitrogen 55 mg/dL (8-23); Calcium 7.7 mg/dL (8.5-10.5); Carbon Dioxide 14 mmol/L (22-29); Chloride 107 mmol/L (98-107); Glomerular Filtration Rate 15.6 mL/min (90-130); Glucose 420 mg/dL (65-115); Osmolality Calculated 313 mOsm/kg (285-295); Sodium 135 mmol/L (136-145)
--- NOTE | 2021-08-21 21:33 | USR_ITS ---
PROCEDURE INFORMATION: Exam: US Abdomen, Limited; Right Upper Quadrant Exam date and time: 08/21/2021 9:33 PM Age: 65 years old Clinical indication: Abdominal pain; Acute TECHNIQUE: Imaging protocol: US abdomen. Real time ultrasound with image documentation. Limited exam focused on the right upper quadrant. COMPARISON: US abdomen limited [id number] 08/11/2021 6:09 AM FINDINGS: Pleural spaces: Right pleural effusion. Liver: Normal. No masses. Gallbladder: There are stones and sludge in the gallbladder. There is a positive sonographic Nichole's sign. Gallbladder wall is normal in thickness measuring 1.5 mm. Common bile duct: Common bile duct is normal in caliber measuring 6 mm. Pancreas: Visualized pancreas is unremarkable. Right kidney: Right kidney is unremarkable with no evidence for hydronephrosis, calculi, or mass. US/US gall bladder [id number] IMPRESSION: 1. There are stones and sludge in the gallbladder and a positive sonographic Nichole sign. However gallbladder wall is normal in thickness and there is no pericholecystic fluid. 2. Right pleural effusion. Radiation Dose CTDIVOL = (mGy): DLP = (mGy-cm)
[2021-08-21 21:34] LABS: Glucose Point of Care 350 mg/dL (70-110)
--- NOTE | 2021-08-21 21:49 | PM.HP ---
Providers/Chief Complaint Chief Complaint: N/V/D History of Present Illness Cony Temple is a 65 year old female with past medical history of poorly controlled diabetes, hypertension, suspected gastroparesis who was brought to emergency room confused and disoriented with complaints of nausea and vomiting. The patient is still confused and unable to provide detailed history. She is on BiPAP. She denies any active complaints. She denies chest pain, shortness of breath, abdominal pain, fever or chills, cough, dysuria, diarrhea. She was hospitalized about 10 days ago with complaints of nausea and vomiting. According to the discharge summary gastroparesis was suspected at discharge. She was discharged with improvements and plan of care. Today, she was found to have severe hyperglycemia, severe anion gap metabolic acidosis, hyperkalemia, intravascular dehydration. However at the same time the patient is found to have congestive heart failure with bilateral pleural effusions, EKG with lateral T wave inversion, elevated troponin with significant delta elevation. Her BNP is elevated as well. The patient received potassium shifting treatments in the emergency room. Follow-up labs are still pending. Due to significant metabolic acidosis and respiratory distress she was also started on BiPAP. Review of Systems General: Reports: ROS unobtainable due to medical condition and ROS unobtainable due to mental status Medications/Allergies Home Medications Medication Instructions Recorded Confirmed Last Taken Type aspirin 81 mg PO DAILY 08/10/21 08/21/21 08/20/21 History atenolol 50 mg PO BID 08/10/21 08/21/21 08/20/21 History glipizide 10 mg PO BID 08/10/21 08/21/21 08/20/21 History lisinopril 10 mg PO DAILY 08/10/21 08/21/21 08/20/21 History metformin 500 mg PO BID 08/10/21 08/21/21 08/20/21 History omega-3 fatty acids 1,000 mg PO DAILY 08/10/21 08/21/21 08/20/21 History torsemide 20 mg PO DAILY 08/10/21 08/21/21 Unknown History triamterene-hydrochlorothiazid 1 tab PO DAILY 08/10/21 08/21/21 Unknown History venlafaxine 37.5 mg PO DAILY 08/10/21 08/21/21 Unknown History insulin aspart U-100 [Novolog See Rx Instructions .ROUTE .COMPLEX 08/21/21 08/21/21 Unknown History Flexpen U-100 Insulin] lorazepam 0.5 mg PO TID PRN 08/21/21 08/21/21 Unknown History metoclopramide HCl 10 mg PO .TID & AT BEDTIME 08/21/21 08/21/21 08/20/21 History pantoprazole 40 mg PO DAILY 08/21/21 08/21/21 08/20/21 History Allergies Allergy/AdvReac Type Severity Reaction Status Date / Time azithromycin Allergy Unknown Verified 08/10/21 22:41 mycins Allergy Unknown Uncoded 08/10/21 22:41 Vitals/I&O/Wt Last Vital Signs Temp 97.7 F 08/21/21 13:13 Pulse 79 08/21/21 21:21 Resp 15 08/21/21 21:21 BP 157/84 08/21/21 21:21 Pulse Ox 96 08/21/21 21:21 Weight last 48 hrs Weight 68.039 kg Physical Exam Narrative: EXAM NARRATIVE: The patient is sleepy and confused. However she is oriented. No acute distress at this time. Speech is slow but responses are adequate. Skin is warm and dry. Moist mucous membranes Eyes PERRL, extraocular muscle intact Neck supple. No JVD Lungs: Decreased breath sounds and bibasilar crackles are present. No respiratory distress on BiPAP. Heart S1, S2, regular Abdomen soft, slightly tender in the right upper quadrant without rebound. Nichole sign is negative. No guarding. Extremities no edema cyanosis or calf tenderness bilaterally No focal deficits Data : 08/21/21 15:40 08/21/21 20:37 Other Labs: Laboratory Results WBC 10.7 10^3/uL (4.0-10.0) H 08/21/21 15:40 RBC 3.93 10^6/uL (4.1-5.3) L 08/21/21 15:40 Hgb 11.3 g/dL (11.5-15.3) L 08/21/21 15:40 Hct 38.1 % (37.0-47.0) 08/21/21 15:40 MCV 96.9 fl (81-99) 08/21/21 15:40 MCH 28.8 pg (28.0-34.0) 08/21/21 15:40 MCHC 29.7 g/dL (30.0-36.0) L 08/21/21 15:40 RDW 12.7 % (12.1-15.1) 08/21/21 15:40 Plt Count 453 10^3/cmm (130-400) H 08/21/21 15:40 MPV 11.1 fL (7.4-10.4) H 08/21/21 15:40 Neut % (Auto) 88.4 % 08/21/21 15:40 Lymph % (Auto) 5.4 % 08/21/21 15:40 Hale % (Auto) 5.3 % 08/21/21 15:40 Eos % (Auto) 0.1 % 08/21/21 15:40 Baso % (Auto) 0.5 % 08/21/21 15:40 Neut # (Auto) 9.50 10^3/uL (1.8-7.7) H 08/21/21 15:40 Lymph # (Auto) 0.6 10^3/uL (0.8-4.8) L 08/21/21 15:40 Hale # (Auto) 0.6 10^3/uL (0.2-0.9) 08/21/21 15:40 Eos # (Auto) 0.0 10^3/uL (0.0-0.8) 08/21/21 15:40 Baso # (Auto) 0.1 10^3/uL (0.0-0.1) 08/21/21 15:40 Nucleated RBC % (auto) 0 % 08/21/21 15:40 Nucleated RBCs # 0.0 /100WBC 08/21/21 15:40 D-Dimer 0.99 ug/mIFEU (0-0.59) H 08/21/21 17:37 Specimen Type Arterial 08/21/21 13:42 Sample Site Radial, right 08/21/21 13:42 ABG pH 7.12 (7.35-7.45) L* 08/21/21 13:42 ABG pCO2 40.7 mmHg (35-45) 08/21/21 13:42 ABG pO2 66.3 mmHg (80.0-100.0) L 08/21/21 13:42 ABG HCO3 13.3 mmol/L (22-26) L 08/21/21 13:42 ABG O2 Saturation 88.6 08/21/21 13:42 ABG Base Excess -15.2 mmol/L (-2.0-2.0) L 08/21/21 13:42 Tj Test Pos 08/21/21 13:42 A-a O2 Gradient 10.8 mmHg (5-10) H 08/21/21 13:42 Hematocrit 32.8 % (37-47) L 08/21/21 13:42 Hgb O2 Saturation 86.5 % (95-100) L 08/21/21 13:42 Carboxyhemoglobin 1.3 %THgb (0.4-20.1) 08/21/21 13:42 Methemoglobin 1.1 % (0.4-1.5) 08/21/21 13:42 Total Hemoglobin 10.7 g/dL (12-16) L 08/21/21 13:42 Sodium 135.0 mmol/L (131-143) 08/21/21 13:42 Potassium 6.8 mmol/L (3.5-5.0) H 08/21/21 13:42 Glucose 458.0 mg/dL (70-115) H 08/21/21 13:42 Ionized Calcium 1.3 mmol/L (1.1-1.4) 08/21/21 13:42 O2 Delivery Device Nc 08/21/21 13:42 O2 Liters/Min 2.0 % 08/21/21 13:42 FiO2 28.0 % 08/21/21 13:42 Switchboard Clerk ID Monro 08/21/21 13:42 Sodium 135 mmol/L (136-145) L 08/21/21 20:37 Potassium 7.0 mmol/L (3.5-5.1) H* 08/21/21 20:37 Chloride 107 mmol/L (98-107) 08/21/21 20:37 Carbon Dioxide 14 mmol/L (22-29) L 08/21/21 20:37 Anion Gap 21.0 (5-19) H 08/21/21 20:37 BUN 55 mg/dL (8-23) H 08/21/21 20:37 Creatinine 3.0 mg/dL (0.5-0.9) H 08/21/21 20:37 GFR Calculation 15.6 mL/min (90-130) L 08/21/21 20:37 Glucose 420 mg/dL (65-115) H 08/21/21 20:37 POC Glucose 350 mg/dL (70-110) H 08/21/21 21:32 Calculated Osmolality 313 mOsm/kg (285-295) H 08/21/21 20:37 Calcium 7.7 mg/dL (8.5-10.5) L 08/21/21 20:37 Total Bilirubin 0.3 mg/dL (0.15-1.2) 08/21/21 17:37 AST 26 U/L (0-32) 08/21/21 17:37 ALT 38 U/L (0-33) H 08/21/21 17:37 Alkaline Phosphatase 361 IU/L (35-105) H 08/21/21 17:37 Troponin T Baseline 205 ng/L (0-10) H* 08/21/21 17:37 Troponin T 120 Minute 432.7 ng/L (0-10) H 08/21/21 20:37 Delta Troponin T 227.7 ABS# (0-10) H* 08/21/21 20:37 NT-Pro-B Natriuret Pep 06297 pg/mL (0-125) H 08/21/21 17:37 Total Protein 6.0 g/dL (6.6-8.7) L 08/21/21 17:37 Albumin 3.7 g/dL (3.5-5.2) 08/21/21 17:37 Globulin 2.3 g/dL (1.3-4.6) 08/21/21 17:37 Lipase 16 U/L (13-60) 08/21/21 17:37 Urine Color Yellow (Yellow) 08/21/21 14:17 Urine Appearance Cloudy (CLEAR) 08/21/21 14:17 Urine pH 5 (5-7) 08/21/21 14:17 Ur Specific [place] 1.020 (1.005-1.030) 08/21/21 14:17 Urine Protein 3+ (Negative) H 08/21/21 14:17 Urine Glucose (UA) 4+ (Normal) H 08/21/21 14:17 Urine Ketones 1+ (Negative) H 08/21/21 14:17 Urine Blood Neg (Negative) 08/21/21 14:17 Urine Nitrate Negative (Negative) 08/21/21 14:17 Urine Bilirubin Neg (Negative) 08/21/21 14:17 Urine Urobilinogen Norm mg/dL (Negative) 08/21/21 14:17 Ur Leukocyte Esterase Negative (Negative) 08/21/21 14:17 Urine RBC None /hpf (0-2) 08/21/21 14:17 Urine WBC 0-4 /hpf (0-5) H 08/21/21 14:17 Ur Squamous Epith Cells 40-55 /hpf (0-5) H 08/21/21 14:17 Ur Transition Epith Cell 5-10 /hpf 08/21/21 14:17 Amorphous Sediment Not Reportable 08/21/21 14:17 Urine Bacteria 2+ /hpf (NONE) H 08/21/21 14:17 Serum Ketones Negative (Negative) 08/21/21 17:37 SARS-CoV-2 Ag (Rapid) Negative (Negative) 08/21/21 14:32 Impressions Chest X-Ray 08/21/21 03:22 IMPRESSION: 1. Central venous catheter tip projects over the right atrium. 2. Pulmonary vascular congestion and bilateral pleural effusions raises concern for congestive heart failure. 3. Perihilar and bibasilar opacities are nonspecific. Differential includes pulmonary edema and pneumonia. Radiation Dose CTDIVOL = (mGy): DLP = (mGy-cm) Chest/Abdomen X-ray 08/21/21 13:25 IMPRESSION: 1. Heart border is obscured. 2. Bilateral pleural effusions with pulmonary vascular congestion is raises concern for congestive heart failure. 3. Hazy bibasilar opacities may represent atelectasis, pulmonary edema, and or infiltrate. Radiation Dose CTDIVOL = (mGy): DLP = (mGy-cm) A&P Assessment and plan (1) Acute respiratory failure with hypoxia: Status: Acute (2) Acute pulmonary edema: Status: Acute (3) Acute hyperkalemia: Status: Acute (4) Acute renal failure superimposed on chronic kidney disease: Status: Acute Qualifiers: Acute renal failure type: unspecified (5) NSTEMI (non-ST elevated myocardial infarction): Status: Acute (6) Hyperosmolar hyperglycemic state (HHS): Status: Acute (7) Uncontrolled diabetes mellitus: Status: Acute (8) Hypertension: Status: Acute Additional A&P Information Cony Temple is a 65 year old female with past medical history of poorly controlled diabetes, hypertension, suspected gastroparesis who was brought to emergency room confused and disoriented with complaints of nausea and vomiting. She is found to have pulmonary edema, lateral T wave changes, elevated troponin, elevated BNP, hyperosmolar hyperglycemic state, acute kidney injury, severe hyperkalemia, respiratory failure secondary to anion gap metabolic acidosis. NSTEMI and ?CHF: dr Carter is consulted. The plan of care was discussed with her and ER physician. The patient will be admitted to ICU. We will continue BiPAP due to acute respiratory failure, will start her on aspirin, heparin drip, Nitropaste. She already received furosemide. We might order another 1. Will reassess in the morning. Echo in the morning. Nausea and vomiting. Could be due to [place]. However she might also have gastroparesis and possibly gallbladder disease. Ultrasound of the abdomen is ordered. We will continue hydration. We will continue nausea medications. Acute respiratory failure. BiPAP. Hyperosmolar hyperglycemic state. We will continue insulin drip and IV fluids. Acute metabolic acidosis secondary to above. Improving currently. Continue close monitoring. Continue IV fluids and insulin drip. Continue monitoring chemistry panel and electrolytes. Acute kidney injury and severe hyperkalemia. We will continue IV fluids. We might consider another dose of furosemide. I ordered Kayexalate 1 dose. We will continue monitoring. We are holding her home medications including KATHY inhibitor, spironolactone, Metformin. DVT prophylaxis. Heparin drip. CODE STATUS. She is full code according to her previous wishes per previous H&P. Will clarify with her again when her mental status normalizes. Critical care time spent on this encounter is 65 minutes. Attestations Medical Necessity Statement*: Based on my assessment of patient's current condition, diagnosis and plan of care I expect that the patient will spend more than 2 midnights in the hospital. Coding Level of Care Code Acute Forging Machine Operator for Vikas Osorio Diagnoses Acute respiratory failure with hypoxia J96.01 Acute pulmonary edema J81.0 Acute hyperkalemia E87.5 Acute renal failure superimposed on chronic kidney disease N17.9; N18.9 Acute renal failure type: unspecified NSTEMI (non-ST elevated myocardial infarction) I21.4 Hyperosmolar hyperglycemic state (HHS) E11.00; E11.65 Uncontrolled diabetes mellitus E11.65 Hypertension I10
[2021-08-21 22:35] LABS: Magnesium 1.9 mg/dL (1.7-2.3); Phosphorus 3.4 mg/dL (2.5-4.5)
[2021-08-21 22:35] LABS: Glucose Point of Care 304 mg/dL (70-110)
[2021-08-21] MEDS: heparin drip 25,000 UNIT/500 ML PREMIX 20 UNIT IV (23:48)
[2021-08-22] VITALS (41 sets, daily range): BP systolic 88–187; BP diastolic 50–101; PULSE 67–113; RESP 15–26; TEMP 36.5–37.2; O2SAT 90–99
[2021-08-22] MEDS: insulin regular-human 250 UNIT in sodium chloride 0.9% 250 ML 5.25 UNIT IV
[2021-08-22] MEDS: ondansetron 2 mg/ML SDV 2 mL 4 MG IVP ×2 (00:15→17:23)
[2021-08-22] MEDS: nitroglycerin 1 gm/inch oint Pkt 1 INCH TOPICAL (00:21)
[2021-08-22] MEDS: sodium polystyrene sulfonate 15 gm/60 mL Btl 30 GM PO (00:21)
[2021-08-22] MEDS: aspirin 325 mg Tablet PO ×2 (00:21→18:07)
[2021-08-22] MEDS: sodium chloride 0.9% 1,000 ML 125 ML IV ×3 (00:22→08:05)
[2021-08-22 01:43] LABS: Albumin Level 3.4 g/dL (3.5-5.2); Anion Gap 19.3 (5-19); Blood Urea Nitrogen 53 mg/dL (8-23); Calcium 9.4 mg/dL (8.5-10.5); Carbon Dioxide 15 mmol/L (22-29); Chloride 108 mmol/L (98-107); Glomerular Filtration Rate 16.9 mL/min (90-130); Glucose 227 mg/dL (65-115); Phosphorus 3.6 mg/dL (2.5-4.5); Potassium 6.3 mmol/L (3.5-5.1); Sodium 136 mmol/L (136-145)
[2021-08-22 02:19] LABS: Troponin 5 6HR 1120 ng/L (0-10); Troponin 5 6HR Delta 915 ng/L (0-12)
[2021-08-22] MEDS: FUROsemide 10 mg/mL SDV 4mL 40 MG IVP ×3 (03:04→18:07)
[2021-08-22] MEDS: hyDRALAzine 20 mg/mL INJ 1 mL 10 MG IVP (04:30)
[2021-08-22 05:20] LABS: Basophils % 0.1 %; Hematocrit 31.7 % (37.0-47.0); Hemoglobin 9.5 g/dL (11.5-15.3); Lymphocytes # 0.7 10^3/uL (0.8-4.8); Lymphocytes % 6.7 %; Mean Corpuscular Hemoglobin 28.4 pg (28.0-34.0); Mean Corpuscular Volume 94.9 fl (81-99); Mean Platelet Volume 11.1 fL (7.4-10.4); Monocytes # 0.8 10^3/uL (0.2-0.9); Monocytes % 7.3 %; Neutrophils % 85.2 %; Nucleated Red Blood Cells % 0 %; Platelet Count 404 10^3/cmm (130-400); Red Blood Count 3.34 10^6/uL (4.1-5.3); White Blood Count 10.7 10^3/uL (4.0-10.0)
--- NOTE | 2021-08-22 05:28 | PC.NURSE ---
Patient arrived from ED at approximately 2345. On arrival patient was AOx4, lung sounds crackles with intermittent wheezes and labored breathing noted. Patient noted to be hypertensive with rate rate NSR. Patient placed on bipap. Patient refused burnham catheter. Dr. Zhang notified. Patient had no complaints of chest pain. Zofran given x1 for nausea. Insulin gtt and heparin started per protocol.
[2021-08-22 05:44] LABS: Alanine Aminotransferase 35 U/L (0-33); Albumin Level 3.2 g/dL (3.5-5.2); Alkaline Phosphatase 307 IU/L (35-105); Anion Gap 17.6 (5-19); Aspartate Amino Transferase 57 U/L (0-32); Blood Urea Nitrogen 55 mg/dL (8-23); Calcium 8.9 mg/dL (8.5-10.5); Carbon Dioxide 17 mmol/L (22-29); Chloride 111 mmol/L (98-107); Globulin 2.8 g/dL (1.3-4.6); Glucose 148 mg/dL (65-115); Magnesium 1.8 mg/dL (1.7-2.3); Osmolality Calculated 308 mOsm/kg (285-295); Potassium 5.6 mmol/L (3.5-5.1); Sodium 140 mmol/L (136-145); Total Bilirubin 0.3 mg/dL (0.15-1.2)
[2021-08-22 06:12] LABS: Albumin Level 3.2 g/dL (3.5-5.2); Anion Gap 16.6 (5-19); Blood Urea Nitrogen 54 mg/dL (8-23); Carbon Dioxide 17 mmol/L (22-29); Chloride 110 mmol/L (98-107); Chol HDL Ratio 4.55 mg/dL (0.0-4.40); Cholesterol 223 mg/dL (0-200); Glucose 147 mg/dL (65-115); HDL Cholesterol 49 mg/dL (60-100); LDL Cholesterol Calculated 152 mg/dL (50-129); Phosphorus 3.3 mg/dL (2.5-4.5); Potassium 5.6 mmol/L (3.5-5.1); Sodium 138 mmol/L (136-145); Triglycerides 109 mg/dL (0-150)
[2021-08-22 06:37] LABS: Partial Thromboplastin Time 121.1 SECONDS (23.9-36.7)
--- NOTE | 2021-08-22 08:46 | P.CONIM_ITS ---
Providers/Reason For Consult Consulting Physician/Specialty*: Dr. Leung, cardiology Reason for Consult*: Elevated troponin Attending Physician: Sunday Johnson MD History of Present Illness History of Present Illness Cony Temple is a 65 year old female with past medical history of poorly controlled diabetes mellitus insulin-dependent (hemoglobin A1c of 12) x 16 years, hypertension who was recently hospitalized with weakness nausea and vomiting and was diagnosed with gastroparesis. Her torsemide was held on discharge because of concern of dehydration. She presented to the ER with confusion nausea and retching. She was placed on BiPAP. No chest pain fever chills diarrhea. She gives history of shortness of breath that was sudden in onset on the day of presentation. On admission her creatinine was high at 2.93.8 on admission 2 weeks back and 1.3 in 2019. Chest x-ray with pulmonary venous and venous congestion and bilateral pleural effusion. EKG on arrival in sinus rhythm. Poor anterior R wave progression ST depression and T wave inversion noted on [address] depression noted in V4 V5 and lead II (new when compared to old EKGs). Follow-up EKG showed less ST depression in lateral leads. She was started on heparin drip for concern for NSTEMI and received 1 dose of Lasix. She received IV fluids along with insulin drip for HHS. Hyperkalemia was treated and at home is elevated spironolactone and Metformin were held. Baseline troponin T of 205 at 2 hours 432 and at 6 hours 1120. NT proBNP of 68,622. Lipid panel with total cholesterol 223, triglyceride 109, LDL 142 and HDL 49. At the time of evaluation patient denies having any chest discomfort. Her nausea and retching has improved. She complains of orthopnea and paroxysmal nocturnal dyspnea prior to arrival as well as shortness of breath which started within a day or 2 of presentation. She was on BiPAP overnight and currently on nasal cannula. She gives family history of diabetes. One brother in his 40s (unclear if he had heart disease), and another brother with diabetes and unspecified issues with his heart. Review of Systems Const: Denies: fever(s) or chills ENMT: Denies: epistaxis Card: Reports: edema and orthopnea; Denies: chest pain, palpitations, lightheadedness or syncope Resp: Reports: dyspnea; Denies: non-productive cough or wheezing GI: Denies: nausea, vomiting or hematochezia : Denies: hematuria Neuro: Denies: headache(s) Los/Lymph: Denies: petechiae or purpura Meds/Allergies Home Medications and Allergies Home Medications Medication Instructions Recorded Confirmed Last Taken Type aspirin 81 mg PO DAILY 08/10/21 08/21/21 08/20/21 History atenolol 50 mg PO BID 08/10/21 08/21/21 08/20/21 History glipizide 10 mg PO BID 08/10/21 08/21/21 08/20/21 History lisinopril 10 mg PO DAILY 08/10/21 08/21/21 08/20/21 History metformin 500 mg PO BID 08/10/21 08/21/21 08/20/21 History omega-3 fatty acids 1,000 mg PO DAILY 08/10/21 08/21/21 08/20/21 History torsemide 20 mg PO DAILY 08/10/21 08/21/21 Unknown History triamterene-hydrochlorothiazid 1 tab PO DAILY 08/10/21 08/21/21 Unknown History venlafaxine 37.5 mg PO DAILY 08/10/21 08/21/21 Unknown History insulin aspart U-100 [Novolog See Rx Instructions .ROUTE .COMPLEX 08/21/21 08/21/21 Unknown History Flexpen U-100 Insulin] lorazepam 0.5 mg PO TID PRN 08/21/21 08/21/21 Unknown History metoclopramide HCl 10 mg PO .TID & AT BEDTIME 08/21/21 08/21/21 08/20/21 History pantoprazole 40 mg PO DAILY 08/21/21 08/21/21 08/20/21 History Allergies Allergy/AdvReac Type Severity Reaction Status Date / Time azithromycin Allergy Unknown Verified 08/10/21 22:41 mycins Allergy Unknown Uncoded 08/10/21 22:41 Current Medications Current Medications Generic Name Dose Route Start Last Admin Trade Name Freq PRN Reason Stop Dose Admin Atorvastatin Calcium 40 mg 08/22/21 06:30 08/22/21 06:46 Atorvastatin 40 Mg Tablet PO Not Given BEDTIME ALYSSA Furosemide 40 mg 08/22/21 02:45 08/22/21 03:04 Furosemide 10 Mg/Ml Sdv 4ml IVP 40 mg ONCE ALYSSA Administration Hydralazine HCl 10 mg 08/22/21 04:21 08/22/21 04:30 Hydralazine 20 Mg/Ml Inj 1 Ml IVP 10 mg Q4H PRN Administration HYPERTENSION Heparin Sodium/Sodium Chloride 25,000 unit in 500 mls @ 0 mls/hr 08/21/21 21:45 08/21/21 23:48 Heparin Drip IV 14.7 unit/kg/hr .Q0M ALYSSA 20 mls/hr Administration Protocol Per Protocol Sodium Chloride 1,000 mls @ 125 mls/hr 08/21/21 21:45 08/22/21 08:05 Sodium Chloride 0.9% IV 125 mls/hr .Q8H ALYSSA Administration Insulin Human Regular 250 unit 252.5 mls @ 0 mls/hr 08/21/21 21:45 08/22/21 07:53 / Sodium Chloride IV 0.85 unit/hr .Q0M ALYSSA 0.86 mls/hr Titration Protocol Per Protocol Ondansetron HCl 4 mg 08/21/21 21:40 08/22/21 00:15 Ondansetron 2 Mg/Ml Sdv 2 Ml IVP 4 mg Q6H PRN Administration NAUSEA AND VOMITING PFSH Acute PFSH: Medical History (Updated 08/22/21 @ 08:47 by Darby Leung MD) Gastroparesis Hypertension Uncontrolled diabetes mellitus Vitals/I&O/Wt Last Vital Signs Temp 97.7 F 08/22/21 06:00 Pulse 76 08/22/21 06:00 Resp 20 H 08/22/21 06:00 BP 150/66 08/22/21 06:00 Pulse Ox 99 08/22/21 06:00 08/21/21 08/22/21 08/22/21 22:59 06:59 14:59 Intake Total 1013.638 / 1013.638 637.426 / 1651.064 380.504 / 380.504 Output Total 400 / 400 Balance 1013.638 / 1013.638 237.426 / 1251.064 380.504 / 380.504 Weight last 48 hrs Weight 161 lb Weight 150 lb Physical Exam Narrative: EXAM NARRATIVE: GENERAL: Averagely built and averagely nourished in no acute distress HEENT: Pupils equal round reactive to light. No pallor or icterus. NECK: + JVD, CARDIOVASCULAR SYSTEM: S1-S2 regular. No S3 or S4 present. No murmur or gallops. RESPIRATORY SYSTEM: Decreased basal lung sounds and bibasilar crackles present. No wheezes rhonchi or rubs heard. ABDOMEN: Soft, nontender and nondistended. Normal bowel sounds present. EXTREMITIES: No cyanosis or clubbing. 1+ bilateral edema. No signs of chronic venous insufficiency. BIODIESEL ENGINE SPECIALIST: Patient is alert oriented ?3. No focal neurological deficits. Data Other Data: Attestation for Other Data: I personally reviewed and interpreted the following: Other data: TTE (08/22/21) CONCLUSIONS Normal LV size with a slightly diminished ejection fraction of 50%. Mild diffuse hypokinesia of the anteroseptal segment.Grade I/IV diastolic dysfunction (abnormal relaxation filling pattern), normal to mildly elevated filling pressures. Mild mitral valve regurgitation. There is no pericardial effusion. There are no intracardiac masses. No previous study is available for comparison. Technically difficult study because of the poor ultrasonic window. Gallbladder ultrasound 21 August 2021 IMPRESSION: 1. There are stones and sludge in the gallbladder and a positive sonographic Nichole sign. However gallbladder wall is normal in thickness and there is no pericholecystic fluid. 2. Right pleural effusion. A&P Assessment and plan (1) Acute pulmonary edema: Received Lasix 40 mg IV x1 this morning repeat another dose this afternoon. -Urine output 1400 mL net +1.2 L. Status: Acute (2) NSTEMI (non-ST elevated myocardial infarction): Shortness of breath possibly angina equivalent -Start aspirin, continue heparin drip -Plan for coronary angiogram based on clinical progression and renal function in next few days after diuresis -Increased risk of contrast-induced nephropathy. This was discussed in detail with patient and her daughter. -They are agreeable with the plan. Status: Acute (3) Hyperosmolar hyperglycemic state (HHS): Status: Acute (4) Acute hyperkalemia: Status: Acute Additional A&P Information Acute on chronic kidney disease: Creatinine 2.8 today Hypertension Transaminitis Anemia Leukocytosis Dyslipidemia Poorly controlled insulin-dependent type 2 diabetes mellitus Cholelithiasis Consult Attestations Time Spent in Patient Care: Greater than 35 minutes (>than 50% of time spent in counselling and/or direct pt care on unit) . Coding Level of Care Code Acute Rn Sane for Chg Fwd Diagnoses Acute pulmonary edema J81.0 NSTEMI (non-ST elevated myocardial infarction) I21.4 Hyperosmolar hyperglycemic state (HHS) E11.00; E11.65 Acute hyperkalemia E87.5
[2021-08-22] MEDS: vancomycin 750 MG in sodium chloride 0.9% 250 ML 250 MG IV (08:52)
[2021-08-22] MEDS: famotidine 20 mg/2 mL INJ IVP (08:52)
--- NOTE | 2021-08-22 09:36 | PC.CHAP ---
Pastoral Care Encounter/Spiritual Assessment Type of Contact [] Declined county health officer visit [] Patient/Family/Request visit [] Outpatient visit [] Follow-up visit [] Physician referral [] Code/Alert [x] Routine visit [] Staff referral [] Actively dying [x] Patient sleeping [] Family support [] [] Out of room [] Palliative care [] [] Receiving care in room [] Pre-surgical visit [] Trauma [] Long length of stay [x] ICU visit [x] Other: oxg mask Relational/Emotional Strength [] Patient feels connected with others/family/visitors/staff [] Distress [] Loneliness/isolation [] Abandonment Spirituality of Patient [] Person of Annabel [] Attends Gnosticism of their Annabel [] Believes in Prayer [] Reads Bible or Advent materials [] There are Spiritual issues to be addressed Partner Marketing Intern Interventions [x] Prayer [] Active listening [] Non-anxious presence [] Spiritual/emotional support [] Crisis/trauma care [] Spiritual counseling [] Bereavement support [] Provided bereavement packet [] Provided Bible/devotional materials [] Provided toy/stuffed animal, coloring book to patient or family member [] Provided Communion [] Anointing/[place] [] Salvation [x] Completed spiritual assessment [] Other: Impact on Illness or Injury [] Angry [] Fearful [] Anxious [] Often cries [] Exhaustion [] Unable to work [] Unable to attend anabaptist [] Unable to walk/stand [] Unable to read [] Unable to drive [] Unable to eat/drink [] Unable to sleep [] Unable to be with family [] Patient intubated [] Other: Summary Time spent with patient
[2021-08-22] MEDS: piperacillin-tazobactam 3.375 GM in sodium chloride 0.9% (plus) 50 ML IV ×2 (10:51→22:06)
[2021-08-22] MEDS: dextrose 5%-sod chloride 0.9% 1,000 ML 75 ML IV (10:54)
[2021-08-22 10:56] LABS: Anion Gap 18.6 (5-19); Blood Urea Nitrogen 51 mg/dL (8-23); Calcium 8.9 mg/dL (8.5-10.5); Carbon Dioxide 16 mmol/L (22-29); Chloride 111 mmol/L (98-107); Glomerular Filtration Rate 16.9 mL/min (90-130); Glucose 168 mg/dL (65-115); Magnesium 1.8 mg/dL (1.7-2.3); Osmolality Calculated 308 mOsm/kg (285-295); Potassium 5.6 mmol/L (3.5-5.1); Sodium 140 mmol/L (136-145)
[2021-08-22] MEDS: sodium polystyrene sulfonate 15 gm/60 mL Btl PO ×2 (12:51→18:34)
[2021-08-22 14:26] LABS: Partial Thromboplastin Time 127.6 SECONDS (23.9-36.7)
--- NOTE | 2021-08-22 15:07 | P.CONIM_ITS ---
Providers/Reason For Consult Consulting Physician/Specialty*: Nephro Reason for Consult*: CKD, hyperkalemia, acidosis Attending Physician: Sunday Johnson MD History of Present Illness History of Present Illness Thank you for consultation, today had the pleasure of reviewing this 65-year-old female for evaluation of acute on chronic kidney disease in the setting of non- STEMI. She presented yesterday with nausea and vomiting with some confusion was and able to provide detailed history. Initially she required BiPAP. Initial diagnostic testing she was found to have an elevated troponin and an EKG that demonstrated poor anterior R wave progression, ST depression and T wave inversion in 1, aVL and V6, with ST depression in V4, V5 and 2. She has not been evaluated by cardiology and there is plans for an angiogram. On admission she was found to have an elevated serum creatinine of 2.9 mg/dL, today it is also 2.8 mg/dL. During her recent hospitalization on admission serum creatinine 3.8, decreasing to 2.4 at the time of discharge, in early August. Back in 2018 serum creatinine 1.3 mg/dL. She has a urinalysis on admission which demonstrates urinary protein of 3+. No known history of acute or chronic kidney disease, she is never seen a kidney specialist or required hemodialysis. She has had diabetes now for the last 16 years, intermittently poor control. She does deny endorgan damage including neuropathy and retinopathy although she does complain of cataracts. Intermittent high blood pressure for the last few years, during her hospital stay here she has been on the higher side, as high as 177/99. Very mild extremity edema, no shortness of breath, orthopnea or other hypervolemic symptoms. She did receive a dose of intravenous Lasix today. Potassium was elevated on admission, slightly improved to 5.6 today. She is also got significant anion gap metabolic acidosis, with a bicarb down to 16 and a anion gap of 18.6 with an albumin down to 3.0. Review of Systems Narrative: ROS - 12 point review of systems completed per HPI and subjective assessment, this includes Constitutional: Weakness, fatigue Respiratory: No SOB on exertion, comfortable at rest CardioVasc: No chest pain, palpitations Gastrointestinal: No nausea, no vomiting Neurological: No seizures, no AMS Derm: No new rashes, lesions or wounds Immunological: No seasonal and no food allergies Meds/Allergies Home Medications and Allergies Home Medications Medication Instructions Recorded Confirmed Last Taken Type aspirin 81 mg PO DAILY 08/10/21 08/21/21 08/20/21 History atenolol 50 mg PO BID 08/10/21 08/21/21 08/20/21 History glipizide 10 mg PO BID 08/10/21 08/21/21 08/20/21 History lisinopril 10 mg PO DAILY 08/10/21 08/21/21 08/20/21 History metformin 500 mg PO BID 08/10/21 08/21/21 08/20/21 History omega-3 fatty acids 1,000 mg PO DAILY 08/10/21 08/21/21 08/20/21 History torsemide 20 mg PO DAILY 08/10/21 08/21/21 Unknown History triamterene-hydrochlorothiazid 1 tab PO DAILY 08/10/21 08/21/21 Unknown History venlafaxine 37.5 mg PO DAILY 08/10/21 08/21/21 Unknown History insulin aspart U-100 [Novolog See Rx Instructions .ROUTE .COMPLEX 08/21/21 08/21/21 Unknown History Flexpen U-100 Insulin] lorazepam 0.5 mg PO TID PRN 08/21/21 08/21/21 Unknown History metoclopramide HCl 10 mg PO .TID & AT BEDTIME 08/21/21 08/21/21 08/20/21 History pantoprazole 40 mg PO DAILY 08/21/21 08/21/21 08/20/21 History Allergies Allergy/AdvReac Type Severity Reaction Status Date / Time azithromycin Allergy Unknown Verified 08/10/21 22:41 mycins Allergy Unknown Uncoded 08/10/21 22:41 Current Medications Current Medications Generic Name Dose Route Start Last Admin Trade Name Freq PRN Reason Stop Dose Admin Atorvastatin Calcium 40 mg 08/22/21 06:30 08/22/21 06:46 Atorvastatin 40 Mg Tablet PO Not Given BEDTIME ALYSSA Famotidine 20 mg 08/22/21 09:00 08/22/21 08:52 Famotidine 20 Mg/2 Ml Inj IVP 20 mg DAILY ALYSSA Administration Furosemide 40 mg 08/22/21 02:45 08/22/21 03:04 Furosemide 10 Mg/Ml Sdv 4ml IVP 40 mg ONCE ALYSSA Administration Hydralazine HCl 10 mg 08/22/21 04:21 08/22/21 04:30 Hydralazine 20 Mg/Ml Inj 1 Ml IVP 10 mg Q4H PRN Administration HYPERTENSION Heparin Sodium/Sodium Chloride 25,000 unit in 500 mls @ 0 mls/hr 08/21/21 21:45 08/22/21 14:43 Heparin Drip IV 14 unit/kg/hr .Q0M ALYSSA 19.05 mls/hr Titration Protocol Per Protocol Insulin Human Regular 250 unit 252.5 mls @ 0 mls/hr 08/21/21 21:45 08/22/21 12:33 / Sodium Chloride IV 0 unit/hr .Q0M ALYSSA 0 mls/hr Titration Protocol Per Protocol Vancomycin HCl 750 mg/ Sodium 250 mls @ 250 mls/hr 08/22/21 09:00 08/22/21 08:52 Chloride IV 250 mls/hr Q48H ALYSSA Administration Piperacillin Sod/Tazobactam 50 mls @ 12.5 mls/hr 08/22/21 10:30 08/22/21 10:51 Sod 3.375 gm/ Sodium Chloride IV 12.5 mls/hr Q12H ALYSSA Administration Dextrose/Sodium Chloride 1,000 mls @ 75 mls/hr 08/22/21 10:00 08/22/21 10:54 Dextrose 5%-Sod Chloride 0.9% IV 75 mls/hr .[id number] ALYSSA Administration Ondansetron HCl 4 mg 08/21/21 21:40 08/22/21 00:15 Ondansetron 2 Mg/Ml Sdv 2 Ml IVP 4 mg Q6H PRN Administration NAUSEA AND VOMITING Sodium Polystyrene Sulfonate 15 gm 08/22/21 12:30 08/22/21 12:51 Sodium Polystyrene Sulfonate 15 Gm/60 Ml Btl PO 15 gm Q6H ALYSSA Administration PFSH Acute PFSH: Medical History (Updated 08/22/21 @ 08:47 by Darby Leung MD) Gastroparesis Hypertension Uncontrolled diabetes mellitus Vitals/I&O/Wt Last Vital Signs Temp 98.8 F 08/22/21 08:30 Pulse 91 08/22/21 14:58 Resp 20 H 08/22/21 06:00 BP 155/80 08/22/21 11:30 Pulse Ox 92 08/22/21 11:30 1108/22/21 08/22/21 06:59 14:59 22:59 Intake Total 637.426 / 1651.064 977.020 / 977.020 Output Total 400 / 400 1000 / 1000 Balance 237.426 / 1251.064 -22.980 / -22.980 Weight last 48 hrs Weight 73.028 kg Weight 68.039 kg Physical Exam Narrative: EXAM NARRATIVE: Constitutional: Awake, comfortable HEENT: Wet mucosa, no jvp, non icteric Lungs: Bilaterally clear without discernible wheeze, rales in all lung zones CVS: S1 S2, no murmurs Abdo: Soft, BS ok Ext 4: Minimal edema, peripheral perfusion with no cyanosis Neurological: Grossly non-focal Data Micro: Micro: Microbiology 08/22/21 09:40 Bacterial Antigens - Final Urine,Clean Catch 08/22/21 09:52 Blood Culture - Pr eliminary Blood SPECIMEN [facility] 08/22/21 09:52 Blood Culture - Pr eliminary Blood SPECIMEN [facility] EL[facility] A&P Additional A&P Information 1. 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 An acute component would be of unclear etiology at this time. We will do a work-up to include renal sonogram, urine protein formal quantification, fractional excretion of sodium and urea. Will get CPK, uric acid, TSH. Close monitoring of renal function 30 renal panel Strict I's and O's Dose medication for GFR less than 30 2. Non-STEMI I appreciate there is a need to perform an angiogram. Of course given her poor renal reserve, this will put her at risk of contrast nephropathy. Gentle IV hydration with normal saline for 3 hours before and after the angiogram. To minimize contrast exposure is much as possible. Will monitor for renal damage over the next few days after the angiogram is performed. 3. Chemistry Anion gap metabolic acidosis, hyperkalemia Likely secondary to advanced kidney disease in setting of diabetic glomer ulopathy. 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 I will add oral sodium bicarb to her current regimen, limit potassium intake, she just received a dose of Kayexalate. 4. Hypertension Blood pressure is a little elevated at this time, she just received some Lasix, I also added some hydralazine. Her daughter was at bedside, answered all of her questions to her satisfaction. 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
[2021-08-22] MEDS: sodium bicarbonate 650 mg Tablet PO ×2 (15:43→20:30)
[2021-08-22] MEDS: hyDRALAzine 50 mg Tablet PO ×2 (15:43→20:29)
[2021-08-22 15:55] LABS: Creatine Phosphokinase 223 U/L (26-192); Thyroid Stimulating Hormone 2.04 uIU/mL (0.27-4.20)
[2021-08-22 16:05] LABS: Add Urine Microscopic? YES; Bilirubin Urine Neg (Negative); Blood Urine Neg (Negative); Glucose Urine UA 2+ (Normal); Ketones Urine Negative (Negative); Leukocyte Esterase Urine Negative (Negative); Nitrate Urine Negative (Negative); Protein Urine 1+ (Negative); Specific Gravity, Urine 1.005 (1.005-1.030); Urine Appearance Clear (CLEAR); Urine Color Yellow (Yellow); Urobilinogen Urine Norm (Negative); pH Urine 5 (5-7)
[2021-08-22 16:06] LABS: RBC Urine 0-4 /hpf (0-2); Squamous Epithelial Cell Urine 0-4 /hpf (0-5); WBC Urine 0-4 /hpf (0-5)
[2021-08-22 16:07] LABS: Add Urine Culture? No
[2021-08-22 16:17] LABS: Urine Creatinine 40 mg/dL (28-217); Urine Random Sodium 101 mmol/L
[2021-08-22 16:23] LABS: UPRO/UCREAT Ratio 1.18 mg/mg CR; Urine Protein Random 47 mg/dL
[2021-08-22 17:24] LABS: Urea Nitrogen,Urine Random 162 mg/dL
--- NOTE | 2021-08-22 18:41 | PC.NURSE ---
Shift Note Frequent safety and comfort rounds continue. Orders and/or nursing care completed as indicated. Patient monitored for response to intervention and treatment(s). Education provided includes insulin drip, diet, medication education at administration, oxygen education. Patient and daughter at bedside verbalize understanding. Primary complaint this shift is of generalized weakness and nausea that began at approximately 1800. PRN 4mg zofran relieved. 1800 glucose 411, drip restarted per Dr. Johnson. Heparin Drip running at 14mls/hr.
[2021-08-22 18:42] LABS: Alanine Aminotransferase 38 U/L (0-33); Albumin Level 3.1 g/dL (3.5-5.2); Alkaline Phosphatase 309 IU/L (35-105); Anion Gap 23.9 (5-19); Aspartate Amino Transferase 48 U/L (0-32); Blood Urea Nitrogen 57 mg/dL (8-23); Calcium 8.5 mg/dL (8.5-10.5); Carbon Dioxide 13 mmol/L (22-29); Chloride 106 mmol/L (98-107); Globulin 2.7 g/dL (1.3-4.6); Glomerular Filtration Rate 15.6 mL/min (90-130); Glucose 493 mg/dL (65-115); Magnesium 1.8 mg/dL (1.7-2.3); Osmolality Calculated 322 mOsm/kg (285-295); Phosphorus 4.6 mg/dL (2.5-4.5); Potassium 5.9 mmol/L (3.5-5.1); Sodium 137 mmol/L (136-145); Total Bilirubin 0.2 mg/dL (0.15-1.2); Total Protein 5.8 g/dL (6.6-8.7)
[2021-08-22] MEDS: metoclopramide 5 mg/mL SDV 2 mL 10 MG IVP (19:00)
[2021-08-22 19:06] LABS: Partial Thromboplastin Time 113.1 SECONDS (23.9-36.7)
--- NOTE | 2021-08-22 20:03 | P.PN_ITS ---
Subjective Subjective: Interval history: Patient was seen this morning, she tells me that she has been feeling nauseous for the last few weeks, episodes of vomiting, her blood sugars have been in the high 400s, she has been using her insulin sliding scale the was given as prescribed, denies any fevers, no chills, but does have significant right upper quadrant pain, no diarrhea, denies any chest pain, no palpitations, no shortness of breath, denies a history of CAD, no history of heart attacks, no history of heart failure Vitals/I&O/Wt Last Vital Signs Temp 98.8 F 08/22/21 14:00 Pulse 98 08/22/21 18:00 Resp 20 H 08/22/21 14:00 BP 144/99 08/22/21 18:00 Pulse Ox 91 08/22/21 18:00 08/22/21 08/22/21 08/22/21 06:59 14:59 22:59 Intake Total 637.426 / 1651.064 977.020 / 977.020 300 / 1277.020 Output Total 400 / 400 1000 / 1000 200 / 1200 Balance 237.426 / 1251.064 -22.980 / -22.980 100 / 77.020 Weight last 48 hrs Weight 73.028 kg Weight 68.039 kg Physical Exam Const: COMMON NORMALS: no acute distress and patient oriented x3 Resp: COMMON NORMALS: normal respiratory effort, No retractions, No use of accessory muscles and clear to auscultation bilaterally AUSCULTATION: clear to auscultation bilaterally Cardio: COMMON NORMALS: regular rate, regular rhythm, S1 normal heart sound present and S2 normal heart sound present RATE: regular rate RHYTHM: regular rhythm HEART SOUNDS: S1 normal heart sound present and S2 normal heart sound present GI: COMMON NORMALS: Normal to inspection, nondistended, normoactive bowel sounds present, Soft to palpation and non-tender PALPATION: Yes Soft to palpation Extremity: COMMON NORMALS: no pedal edema Neuro: COMMON NORMALS: patient oriented x3 Psych: COMMON NORMALS: mental status grossly normal Data : 08/22/21 03:08 08/22/21 18:14 Micro: Microbiology 08/22/21 09:40 MRSA Culture - Final Nose 08/22/21 09:40 Bacterial Antigens - Final Urine,Clean Catch 08/22/21 09:52 Blood Culture - Preliminary Blood SPECIMEN COLLECTED 08/22/21 09:52 Blood Culture - Preliminary Blood SPECIMEN COLLECTED A&P Assessment and plan (1) Acute respiratory failure with hypoxia: Status: Acute (2) Acute pulmonary edema: Status: Acute (3) Acute hyperkalemia: Status: Acute (4) Acute renal failure superimposed on chronic kidney disease: Status: Acute Qualifiers: Acute renal failure type: unspecified (5) NSTEMI (non-ST elevated myocardial infarction): Status: Acute (6) Hyperosmolar hyperglycemic state (HHS): Status: Acute (7) Uncontrolled diabetes mellitus: Status: Acute (8) Hypertension: Status: Acute Additional A&P Information Cony Temple is a 65 year old female with past medical history of poorly controlled diabetes, hypertension, suspected gastroparesis who was brought to emergency room confused and disoriented with complaints of nausea and vomiting. She is found to have pulmonary edema, lateral T wave changes, elevated troponin, elevated BNP, hyperosmolar hyperglycemic state, acute kidney injury, severe hyperkalemia, respiratory failure secondary to anion gap metabolic acidosis. Acute respiratory failure with hypoxia -Etiology from pneumonia and/or CHF -Currently requiring 2 L, off BiPAP -Chest x-ray shows pulmonary vascular congestion, perihilar and bibasilar opacities -No wheezing on exam Plan: -Monitor respiratory status closely -continue broad-spectrum antibiotics -Follow cultures -Continue nebulizer treatments -Status post Lasix therapy, hold off on further Lasix therapy Hyperosmolar hyperglycemic state -Hemoglobin A1c 12.1 -Poorly controlled type 2 diabetes mellitus -Continue insulin drip -BMP/Mg/phos every 4 hours -Monitor blood sugars closely -Monitor anion gap, monitor serum ketones -Monitor mentation -IV hydration, once blood sugars are reasonable will turn off insulin drip, transition to subcu insulin -Zofran, Reglan for nausea Acute metabolic acidosis, secondary to HHS Nausea, vomiting, right upper quadrant pain -Etiology unclear at this point -Possibly multifactorial from HHS, gallbladder disease, diabetic gastroparesis, underlying NSTEMI -Patient's nausea and vomiting is somewhat responded to Reglan, continue to monitor -Right upper quadrant ultrasound here are stones and sludge in the gallbladder and a positive sonographic Nichole sign. However gallbladder wall is normal in thickness and there is no pericholecystic fluid. -CT scan of the abdomen pelvis on 08/11/2021 Cholelithiasis and gallbladder dilation. If the patient has right upper quadrant pain, consider further evaluation with right upper quadrant ultrasound. -We will pursue HIDA scan -Continue Zosyn -Follow cultures NSTEMI -6-hour troponin 1120, delta of 915 -EKG shows nonspecific ST-T wave changes - Normal LV size with a slightly diminished ejection fraction of 50%. Mild diffuse hypokinesia of the anteroseptal segment.Grade I/IV diastolic dysfunction (abnormal relaxation filling pattern), normal to mildly elevated filling pressures. Mild mitral valve regurgitation. There is no pericardial effusion. There are no intracardiac masses. Plan -Continue aspirin, statin, heparin drip -Cardiology on consult Acute kidney injury and severe hyperkalemia -Monitor creatinine, monitor potassium -Gentle IV hydration -Monitor urine output -Continue Kayexalate -Nephrology on consult DVT prophylaxis. Heparin drip. CODE STATUS. She is full code according to her previous wishes per previous H&P. Will clarify with her again when her mental status normalizes. Critical care time spent on this encounter is 65 minutes. Attestations Medical Necessity Statement*: Patient requires hospitalization for acute respiratory failure, HHS, NSTEMI, acute renal failure Coding Level of Care Code Acute Lecturer Of Portuguese for [facility] Diagnoses Acute respiratory failure with hypoxia J96.01 Acute pulmonary edema J81.0 Acute hyperkalemia E87.5 Acute renal failure superimposed on chronic kidney disease N17.9; N18.9 Acute renal failure type: unspecified NSTEMI (non-ST elevated myocardial infarction) I21.4 Hyperosmolar hyperglycemic state (HHS) E11.00; E11.65 Uncontrolled diabetes mellitus E11.65 Hypertension I10
[2021-08-22] MEDS: atorvastatin 40 mg Tablet PO (20:29)
[2021-08-22] MEDS: sodium chloride 0.9% 1,000 ML 100 ML IV (20:29)
[2021-08-22] MEDS: LORazepam 0.5 mg Tablet PO (20:30)
[2021-08-22] MEDS: metoprolol tartrate 25 mg Tablet PO (20:31)
--- NOTE | 2021-08-22 21:40 | USCV_ITS ---
Cony Temple Age: 65 Gender: F : 1955 Exam Date: 08/22/2021 05:06 Ordering Phys: Lam Zhang MD Technologist: Nell Martinez Exam Location: [facility] [place] Indication: UT CHF BP: 150 / 73 HR: 79 Rhythm: Sinus Technical Quality: Adequate MEASUREMENTS (Male / Female) Normal Values 2D ECHO LV Diastolic Diameter PLAX 3.4 cm 4.2 - 5.9 / 3.9 - 5.3 cm LV Systolic Diameter PLAX 2.2 cm LV Chamber Size 3.3 cm IVS Diastolic Thickness 1.3 cm 0.6 - 1.0 / 0.6 - 0.9 cm IVS Systolic Thickness 1.8 cm LVPW Diastolic Thickness 1.2 cm 0.6 - 1.0 / 0.6 - 0.9 cm LVPW Systolic Thickness 1.6 cm RV Chamber Size 3.4 cm LVOT Diameter 2.0 cm LV Ejection Fraction 2D Teich 66.4 % LV Ejection Fraction MOD 2C 50.1 % LV Ejection Fraction 2C AL 51.0 % LA Diameter 4.1 cm LA Width 3.3 cm LA Height 4.0 cm RA Width 3.9 cm RA Height 3.5 cm Aorta at Sinotubular Diameter 2.9 cm M-MODE LV Diastolic Diameter MM 4.7 cm 4.2 - 5.9 / 3.9 - 5.3 cm LV Systolic Diameter MM 3.1 cm LV Ejection Fraction MM Teich 61.9 % IVS Diastolic Thickness MM 0.9 cm 0.6 - 1.0 / 0.6 - 0.9 cm IVS Systolic Thickness MM 1.1 cm LVPW Diastolic Thickness MM 1.0 cm 0.6 - 1.0 / 0.6 - 0.9 cm LVPW Systolic Thickness MM 1.0 cm Aortic Annulus Diameter 3.3 cm LA Ao Ratio MM 1.3 MV E Point Septal Separation 0.6 cm DOPPLER AV Peak Velocity 105.0 cm/s LVOT Peak Velocity 86.0 cm/s AV Area Cont Eq vti 2.9 cm squared AV Area Cont Eq pk 2.7 cm squared MV Area PHT 4.5 cm squared Mitral E to A Ratio 0.9 MV E' Velocity 42.0 cm/s Mitral E to MV E' Ratio 16.7 Mitral E to LV E' Lateral Ratio 18.2 Mitral E to LV E' Septal Ratio 15.4 TR Peak Velocity 162.8 cm/s TR Peak Gradient 10.6 mmHg TR Mean Velocity 110.6 cm/s TR Mean Gradient 5.4 mmHg TR Velocity Time Integral 55.8 cm TV Peak E Velocity 61.0 cm/s Right Atrial Pressure 3.0 mmHg Pulmonary Artery Systolic Pressu 13.6 mmHg PV Peak Velocity 61.0 cm/s RV Acceleration Time 0.2 s RV Ejection Time 0.4 s RV AcT/ET 0.4 FINDINGS Left Ventricle Normal LV size with a slightly diminished ejection fraction of 50%. Mild diffuse hypokinesia of the anteroseptal segment.Grade I/IV diastolic dysfunction (abnormal relaxation filling pattern), normal to mildly elevated filling pressures. Right Ventricle The right ventricle is normal in size and function. Right Atrium The right atrium is normal in size. Left Atrium The left atrium is normal in size. Mitral Valve Mild mitral valve regurgitation. Aortic Valve No gross abnormalities noted Tricuspid Valve Could not be visualized well Pulmonic Valve Pulmonic valve not well visualized. Pericardium Normal pericardium without effusion. Aorta Normal ascending aorta dimension. CONCLUSIONS Normal LV size with a slightly diminished ejection fraction of 50%. Mild diffuse hypokinesia of the anteroseptal segment.Grade I/IV diastolic dysfunction (abnormal relaxation filling pattern), normal to mildly elevated filling pressures. Mild mitral valve regurgitation. There is no pericardial effusion. There are no intracardiac masses. No previous study is available for comparison. Technically difficult study because of the poor ultrasonic window. Dr Krupa Yarbrough MD [facility] (Electronically Signed) Final Date: 22 August 2021 09:36 S
[2021-08-22 22:24] LABS: Anion Gap 19.9 (5-19); Blood Urea Nitrogen 60 mg/dL (8-23); Calcium 8.4 mg/dL (8.5-10.5); Carbon Dioxide 14 mmol/L (22-29); Chloride 110 mmol/L (98-107); Glomerular Filtration Rate 13.9 mL/min (90-130); Glucose 253 mg/dL (65-115); Magnesium 1.7 mg/dL (1.7-2.3); Osmolality Calculated 313 mOsm/kg (285-295); Phosphorus 3.7 mg/dL (2.5-4.5); Potassium 4.9 mmol/L (3.5-5.1); Sodium 139 mmol/L (136-145)
[2021-08-22 22:39] LABS: Ketone (Acetest) Serum Negative (Negative)
[2021-08-23] VITALS (45 sets, daily range): BP systolic 101–173; BP diastolic 54–96; PULSE 63–101; RESP 16–24; TEMP 36.4–37.2; O2SAT 90–99
[2021-08-23] MEDS: sodium polystyrene sulfonate 15 gm/60 mL Btl PO ×2 (00:02→05:41)
[2021-08-23] MEDS: hyDRALAzine 20 mg/mL INJ 1 mL 10 MG IVP (02:18)
[2021-08-23] MEDS: ondansetron 2 mg/ML SDV 2 mL 4 MG IVP (02:19)
[2021-08-23 02:28] LABS: Platelet Count 414 10^3/cmm (130-400)
[2021-08-23 02:52] LABS: Partial Thromboplastin Time 71.2 SECONDS (23.9-36.7)
[2021-08-23 02:56] LABS: Lactate (Lactic Acid level) 1.4 mmol/L (0.5-2.2)
[2021-08-23 02:59] LABS: Anion Gap 19.1 (5-19); Blood Urea Nitrogen 59 mg/dL (8-23); C Reactive Protein 27.9 mg/L (0.0-4.9); Calcium 8.5 mg/dL (8.5-10.5); Carbon Dioxide 17 mmol/L (22-29); Chloride 110 mmol/L (98-107); Glomerular Filtration Rate 12.6 mL/min (90-130); Glucose 111 mg/dL (65-115); Magnesium 1.8 mg/dL (1.7-2.3); Osmolality Calculated 309 mOsm/kg (285-295); Phosphorus 4.5 mg/dL (2.5-4.5); Potassium 5.1 mmol/L (3.5-5.1); Sodium 141 mmol/L (136-145)
[2021-08-23 03:22] LABS: Creatine Phosphokinase 123 U/L (26-192); Globulin 2.2 g/dL (1.3-4.6); Glucose 99 mg/dL (65-115); Sodium 141 mmol/L (136-145); Total Bilirubin 0.2 mg/dL (0.15-1.2)
[2021-08-23 04:37] LABS: ABG PCO2 33.3 mmHg (35-45); ABG PH Result 7.28 (7.35-7.45); Arterial Blood Gas Hematocrit 35.5 % (37-47); Base Excess ABG -10.1 mmol/L (-2.0-2.0); Blood Gas Allen Test Pos; Blood Gas Operator Identificat JB; Blood Gas Sample Site Radial, right; Blood Gas Sample Type Arterial; HCO3 ABG 15.6 mmol/L (22-26); Oxygen Device NC; PO2 ABG 93.2 mmHg (80.0-100.0)
[2021-08-23 04:41] LABS: Gamma Glutamyl Transferase 244 U/L (5-36)
[2021-08-23 04:57] LABS: Alanine Aminotransferase 38 U/L (0-33); Aspartate Amino Transferase 39 U/L (0-32); Blood Urea Nitrogen 60 mg/dL (8-23); Calcium 8.4 mg/dL (8.5-10.5); Carbon Dioxide 16 mmol/L (22-29); Chloride 110 mmol/L (98-107); Glomerular Filtration Rate 13.5 mL/min (90-130); Osmolality Calculated 309 mOsm/kg (285-295)
[2021-08-23 04:58] LABS: Alkaline Phosphatase 269 IU/L (35-105); Total Protein 5.2 g/dL (6.6-8.7)
--- NOTE | 2021-08-23 05:11 | NUR.SHIFT ---
Patient was stable throughout shift. Patient oriented, with lung sounds slighlty diminished. Hypertension managed with PRN hydralazine IVP x1. Patient oxygen saturation above 90% on 2L NC. Patient up to BSC with assistx1, noted to be dyspneic on exertion. 4 loose BM noted. Insulin and heparin gtt titrated per protocol. Will continue to monitor.
[2021-08-23] MEDS: heparin drip 25,000 UNIT/500 ML PREMIX 13.61 UNIT IV (05:40)
[2021-08-23] MEDS: sodium chloride 0.9% 1,000 ML 100 ML IV (05:41)
[2021-08-23 07:08] LABS: Magnesium 1.6 mg/dL (1.7-2.3); Phosphorus 4.3 mg/dL (2.5-4.5)
[2021-08-23] MEDS: venlafaxine ER (24HR) 37.5 mg Capsule PO (08:38)
[2021-08-23] MEDS: atenolol 50 mg Tablet PO (08:38)
[2021-08-23] MEDS: famotidine 20 mg/2 mL INJ IVP (08:38)
[2021-08-23] MEDS: aspirin 325 mg Tablet PO (08:38)
[2021-08-23] MEDS: hyDRALAzine 50 mg Tablet PO ×3 (08:38→20:09)
[2021-08-23] MEDS: sodium bicarbonate 650 mg Tablet PO ×3 (08:38→20:09)
[2021-08-23] MEDS: isosorbide mononitrate ER 30 mg Tablet 15 MG PO (08:39)
[2021-08-23] MEDS: metoprolol tartrate 25 mg Tablet PO (08:40)
[2021-08-23] MEDS: magnesium sulfate premix 4 GM/100 ML PREMIX IV (08:43)
[2021-08-23 08:59] LABS: Partial Thromboplastin Time 50.4 SECONDS (23.9-36.7)
--- NOTE | 2021-08-23 09:11 | PM.PN ---
Subjective Subjective: Interval history: No chest pain, feels better Medications: Reviewed: Yes Vitals/I&O/Wt Last Vital Signs Temp 97.7 F 08/23/21 06:00 Pulse 101 H 08/23/21 08:30 Resp 24 H 08/23/21 06:00 BP 138/80 08/23/21 08:30 Pulse Ox 95 08/23/21 08:00 08/22/21 08/23/21 08/23/21 22:59 06:59 14:59 Intake Total 1064.097 / 2041.117 1090.07 / 3131.187 93.782 / 93.782 Output Total 400 / 1400 600 / 2000 Balance 664.097 / 641.117 490.07 / 1131.187 93.782 / 93.782 Weight last 48 hrs Weight 161 lb Weight 161 lb Weight 150 lb Physical Exam Narrative: EXAM NARRATIVE: GENERAL: Averagely built and averagely nourished in no acute distress HEENT: Pupils equal round reactive to light. No pallor or icterus. NECK: + JVD, CARDIOVASCULAR SYSTEM: S1-S2 regular. No murmur or gallops. RESPIRATORY SYSTEM: Decreased basal lung sounds and bibasilar crackles present. No wheezes rhonchi or rubs heard. ABDOMEN: Soft, nontender and nondistended. Normal bowel sounds present. EXTREMITIES: No cyanosis or clubbing. 1+ bilateral edema. No signs of chronic venous insufficiency. RIVETER HELPER: Patient is alert oriented ?3. No focal neurological deficits. Data : 08/23/21 09:30 08/23/21 14:04 Micro: Microbiology 08/22/21 09:40 MRSA Culture - Final Nose 08/22/21 09:40 Bacterial Antigens - Final Urine,Clean Catch 08/22/21 09:52 Blood Culture - Preliminary Blood SPECIMEN COLLECTED 08/22/21 09:52 Blood Culture - Preliminary Blood SPECIMEN COLLECTED A&P Assessment and plan (1) NSTEMI (non-ST elevated myocardial infarction): Shortness of breath possibly angina equivalent -Start aspirin, continue heparin drip -May consider coronary angiogram based on clinical progression and renal function in next few days after diuresis -Increased risk of contrast-induced nephropathy. This was discussed in detail with patient and her daughter. -They are agreeable with the plan. Status: Acute (2) Acute pulmonary edema: Received Lasix 60 mg IV x1 this morning and plan to do another lasix 40 mg IVx1. -Urine output 2000 mL net +1.3 L overnight Status: Acute (3) Hyperosmolar hyperglycemic state (HHS): Status: Acute (4) Acute hyperkalemia: resolved Status: Acute Additional A&P Information Acute on chronic kidney disease: Creatinine 3.1 today Hypertension Transaminitis Anemia Leukocytosis Dyslipidemia Poorly controlled insulin-dependent type 2 diabetes mellitus Cholelithiasis Attestations Medical Necessity Statement*: Patient requires hospitalization for acute respiratory failure, HHS, NSTEMI, acute renal failure Coding Level of Care Code Acute Attractions Associate for [facility] Diagnoses NSTEMI (non-ST elevated myocardial infarction) I21.4 Acute pulmonary edema J81.0 Hyperosmolar hyperglycemic state (HHS) E11.00; E11.65 Acute hyperkalemia E87.5
[2021-08-23] MEDS: heparin 5,000 unit/mL INJ 1 mL IV ×2 (09:42→21:00)
[2021-08-23] MEDS: FUROsemide 10 mg/mL SDV 10mL 60 MG IVP (09:57)
[2021-08-23 10:17] LABS: Basophils % 0.3 %; Eosinophils % 0.2 %; Hematocrit 31.1 % (37.0-47.0); Hemoglobin 9.3 g/dL (11.5-15.3); Lymphocytes # 1.8 10^3/uL (0.8-4.8); Lymphocytes % 11.7 %; Mean Corpuscular HGB Conc 29.9 g/dL (30.0-36.0); Mean Corpuscular Hemoglobin 28.5 pg (28.0-34.0); Mean Corpuscular Volume 95.4 fl (81-99); Mean Platelet Volume 10.5 fL (7.4-10.4); Monocytes # 1.2 10^3/uL (0.2-0.9); Monocytes % 7.6 %; Neutrophils # 12.52 10^3/uL (1.8-7.7); Neutrophils % 79.8 %; Nucleated Red Blood Cells % 0 %; Platelet Count 432 10^3/cmm (130-400); Red Blood Count 3.26 10^6/uL (4.1-5.3); Red Cell Distribution Width 13.2 % (12.1-15.1); White Blood Count 15.7 10^3/uL (4.0-10.0)
[2021-08-23 10:25] LABS: NT Pro B Type Natriuretic Pept > 70000 pg/mL (0-125)
[2021-08-23 10:36] LABS: Anion Gap 17.4 (5-19); Blood Urea Nitrogen 54 mg/dL (8-23); Carbon Dioxide 17 mmol/L (22-29); Chloride 112 mmol/L (98-107); Glucose 176 mg/dL (65-115); Magnesium 1.8 mg/dL (1.7-2.3); Osmolality Calculated 313 mOsm/kg (285-295); Phosphorus 4.4 mg/dL (2.5-4.5); Potassium 4.4 mmol/L (3.5-5.1); Sodium 142 mmol/L (136-145)
[2021-08-23] MEDS: piperacillin-tazobactam 3.375 GM in sodium chloride 0.9% (plus) 50 ML IV ×2 (10:36→22:01)
[2021-08-23 10:42] LABS: Lipase 727 U/L (13-60)
[2021-08-23 10:42] LABS: Creatinine Clr Calc Pharmacy 16.4775
--- NOTE | 2021-08-23 12:32 | NM_ITS ---
WS: [id number] NUCLEAR MEDICINE HIDA SCAN CLINICAL INFORMATION: ruq pain TECHNIQUE: Following intravenous administration of 4.6 mCi of technetium 99m mebrofenin, images of th e abdomen were obtained over the course of 60 minutes. Next, gallbladder ejection fraction was determ ined by obtaining preprandial and one-hour postprandial images of the gallbladder following oral grisel stion of Ensure. COMPARISON: Ultrasound August 21, 2021 FINDINGS: Normal hepatic uptake at 5 minutes. Normal hepatic excretion. Normal activity in the common bile duct and small bowel. Gallbladder is visualized by 20 minutes. No evidence of acute cholecystitis. No significant gallbladder emptying at 60 minutes. NM/NM hepatobiliary w phar* [id number] IMPRESSION: 1. No evidence of acute cholecystitis. 2. No significant gallbladder emptying at 60 minutes compatible with gallbladd er dysfunction and suspicious for chronic cholecystitis. 3. Normal common bile duct and small bowel activity is visualized.
[2021-08-23 14:41] LABS: Anion Gap 19.4 (5-19); Blood Urea Nitrogen 54 mg/dL (8-23); Carbon Dioxide 16 mmol/L (22-29); Chloride 111 mmol/L (98-107); Creatinine Clr Calc Pharmacy 15.9626; Glomerular Filtration Rate 14.4 mL/min (90-130); Glucose 224 mg/dL (65-115); Magnesium 3.1 mg/dL (1.7-2.3); Osmolality Calculated 316 mOsm/kg (285-295); Phosphorus 4.3 mg/dL (2.5-4.5); Potassium 4.4 mmol/L (3.5-5.1); Sodium 142 mmol/L (136-145)
[2021-08-23 15:16] LABS: Partial Thromboplastin Time 83.3 SECONDS (23.9-36.7)
[2021-08-23] MEDS: insulin glargine 100 units/1 mL 10 UNIT SUBCUT (15:53)
--- NOTE | 2021-08-23 16:20 | P.CONIM_ITS ---
Providers/Reason For Consult Consulting Physician/Specialty*: Dennys Blake MD Reason for Consult*: Right upper quadrant abdominal pain in the presence of cholelithiasis Requesting Physician: Dr. Johnson Attending Physician: Sunday Johnson MD History of Present Illness History of Present Illness Chief Complaint: Used to have belly pain History of present illness: Ms. Cony Temple is a 65 year old female admitted to the hospitalist service due to her confusion and disorientation. As patient has been complaining of nausea and vomiting, gives past medical history of poorly controlled diabetes mellitus, hypertension. Also concern of history of gastroparesis. Further work- up was done and showed that the patient had the findings below: CT scan of the abdomen pelvis did show Pancreas: Normal. No ductal dilation. 1. Cholelithiasis and gallbladder dilation. If the patient has right upper quadrant pain, consider further evaluation with right upper quadrant ultrasound. 2. Small hiatal hernia. 3. 1.3 cm indeterminate right renal lesion. Recommend further evaluation, on an outpatient basis with dedicated pre and post contrast renal CT or MRI. 4. 2.8 cm right ovarian cyst.No further imaging is recommended. (Reference: [facility]) 5. Multiple calcified uterine fibroids. Abdominal ultrasound 08/11/2021 1. Hydropic gallbladder with cholelithiasis and sludge. No gallbladder wall thickening or pericholecystic fluid. Normal common bile duct. 2. Normal liver. No intrahepatic biliary duct dilatation. 3. No hydronephrosis in right kidney. 4. Small slightly complex right renal cyst. Gallbladder ultrasound 08/21/2021 Common bile duct: Common bile duct is normal in caliber measuring 6 mm. Pancreas: Visualized pancreas is unremarkable. 1. There are stones and sludge in the gallbladder and a positive sonographic Nichole sign. However gallbladder wall is normal in thickness and there is no pericholecystic fluid. 2. Right pleural effusion. HIDA scan was done 08/21/2021 1. No evidence of acute cholecystitis. 2. No significant gallbladder emptying at 60 minutes compatible with gallbladder dysfunction and suspicious for chronic cholecystitis. 3. Normal common bile duct and small bowel activity is visualized. After further history from the patient she mentioned that she would complain of abdominal pain when somebody examines her and pushes on her belly. Otherwise she denies abdominal pain and she denies any history of gallbladder symptoms. As general surgery was consulted for further evaluation, I collected from the notes that there is concern about gastroparesis and that would explain also the repeated nausea and vomiting. I do not believe that the patient had a gastric emptying studies at some point but it would not be surprising to me that the patient has suboptimal gastric emptying in correlation with her poorly controlled diabetes mellitus Review of Systems General: Reports: 10 or more systems reviewed and unremarkable except in HPI and below Meds/Allergies Home Medications and Allergies Home Medications Medication Instructions Recorded Confirmed Last Taken Type aspirin 81 mg PO DAILY 08/10/21 08/21/21 08/20/21 History atenolol 50 mg PO BID 08/10/21 08/21/21 08/20/21 History glipizide 10 mg PO BID 08/10/21 08/21/21 08/20/21 History lisinopril 10 mg PO DAILY 08/10/21 08/21/21 08/20/21 History metformin 500 mg PO BID 08/10/21 08/21/21 08/20/21 History omega-3 fatty acids 1,000 mg PO DAILY 08/10/21 08/21/21 08/20/21 History torsemide 20 mg PO DAILY 08/10/21 08/21/21 Unknown History triamterene-hydrochlorothiazid 1 tab PO DAILY 08/10/21 08/21/21 Unknown History venlafaxine 37.5 mg PO DAILY 08/10/21 08/22/21 08/20/21 09:00 History insulin aspart U-100 [Novolog See Rx Instructions .ROUTE .COMPLEX 08/21/21 08/21/21 Unknown History Flexpen U-100 Insulin] lorazepam 0.5 mg PO TID PRN 08/21/21 08/22/21 08/20/21 21:00 History metoclopramide HCl 10 mg PO .TID & AT BEDTIME 08/21/21 08/21/21 08/20/21 History pantoprazole 40 mg PO DAILY 08/21/21 08/21/21 08/20/21 History Allergies Allergy/AdvReac Type Severity Reaction Status Date / Time azithromycin Allergy Unknown Verified 08/10/21 22:41 mycins Allergy Unknown Uncoded 08/10/21 22:41 Current Medications Current Medications Generic Name Dose Route Start Last Admin Trade Name Freq PRN Reason Stop Dose Admin Aspirin 325 mg 08/22/21 17:40 08/23/21 08:38 Aspirin 325 Mg Tablet PO 325 mg DAILY ALYSSA Administration Atorvastatin Calcium 40 mg 08/22/21 06:30 08/22/21 20:29 Atorvastatin 40 Mg Tablet PO 40 mg BEDTIME ALYSSA Administration Famotidine 20 mg 08/22/21 09:00 08/23/21 08:38 Famotidine 20 Mg/2 Ml Inj IVP 20 mg DAILY ALYSSA Administration Heparin Sodium (Porcine) 0 unit 08/21/21 21:34 08/23/21 09:42 Heparin 5,000 Unit/Ml Inj 1 Ml IV 1,500 unit PRN PRN Administration Heparin weight-base protocol Protocol Hydralazine HCl 10 mg 08/22/21 04:21 08/23/21 02:18 Hydralazine 20 Mg/Ml Inj 1 Ml IVP 10 mg Q4H PRN Administration HYPERTENSION Hydralazine HCl 50 mg 08/22/21 15:10 08/23/21 15:15 Hydralazine 50 Mg Tablet PO 50 mg TID ALYSSA Administration Heparin Sodium/Sodium Chloride 25,000 unit in 500 mls @ 0 mls/hr 08/21/21 21 :45 08/23/21 14:04 Heparin Drip IV 10 unit/kg/hr .Q0M ALYSSA 13.61 mls/hr Titration Protocol Per Protocol Insulin Human Regular 250 unit 252.5 mls @ 0 mls/hr 08/21/21 21:45 08/23/21 15:45 / Sodium Chloride IV 5.92 unit/hr .Q0M ALYSSA 5.98 mls/hr Titration Protocol Per Protocol Vancomycin HCl 750 mg/ Sodium 250 mls @ 250 mls/hr 08/22/21 09:00 08/22/21 18:04 Chloride IV Infused Q48H ALYSSA Infusion Piperacillin Sod/Tazobactam 50 mls @ 12.5 mls/hr 08/22/21 10:30 08/23/21 14:56 Sod 3.375 gm/ Sodium Chloride IV Infused Q12H ALYSSA Infusion Insulin Glargine 10 unit 08/23/21 15:15 08/23/21 15:53 Insulin Glargine 100 Units/1 Ml SUBCUT 10 unit Q24H ALYSSA Administration Insulin Human Lispro 0 unit 08/22/21 18:00 08/22/21 20:30 Insulin Lispro 100 Unit/1 Ml SUBCUT Not Given WM&BEDTIME ALYSSA Protocol Lorazepam 0.5 mg 08/22/21 20:01 08/22/21 20:30 Lorazepam 0.5 Mg Tablet PO 0.5 mg TID PRN Administration Anxiety Metoclopramide HCl 10 mg 08/21/21 21:40 08/22/21 19:00 Metoclopramide 5 Mg/Ml Sdv 2 Ml IVP 10 mg Q6H PRN Administration NAUSEA AND VOMITING Ondansetron HCl 4 mg 08/21/21 21:40 08/23/21 02:19 Ondansetron 2 Mg/Ml Sdv 2 Ml IVP 4 mg Q6H PRN Administration NAUSEA AND VOMITING Sodium Bicarbonate 650 mg 08/22/21 15:10 08/23/21 15:15 Sodium Bicarbonate 650 Mg Tablet PO 650 mg TID ALYSSA Administration Venlafaxine HCl 37.5 mg 08/23/21 09:00 08/23/21 08:38 Venlafaxine Er (24hr) 37.5 Mg Capsule PO 37.5 mg DAILY ALYSSA Administration PFSH Acute PFSH: Medical History Gastroparesis Hypertension Uncontrolled diabetes mellitus Vitals/I&O/Wt Last Vital Signs Temp 97.7 F 08/23/21 06:00 Pulse 81 08/23/21 15:33 Resp 24 H 08/23/21 06:00 BP 129/67 08/23/21 14:00 Pulse Ox 96 08/23/21 14:00 08/23/21 08/23/21 08/23/21 06:59 14:59 22:59 Intake Total 1090.07 / 3131.187 377.003 / 377.003 3.604 / 380.607 Output Total 600 / 2000 Balance 490.07 / 1131.187 377.003 / 377.003 3.604 / 380.607 Weight last 48 hrs Weight 161 lb Weight 161 lb Physical Exam Const: COMMON NORMALS: no acute distress and patient oriented x3 GENERAL APPEARANCE: cooperative ORIENTATION/CONSCIOUSNESS: Yes awake, Yes oriented to person, Yes oriented to place and Yes oriented to time HENMT: COMMON NORMALS: normocephalic HEAD & SCALP: normocephalic Eye: COMMON NORMALS: Equal, round and reactive pupils present and no scleral icterus PUPIL: Yes Equal, round and reactive pupils present Lymph: LYMPHATIC: no lymphadenopathy noted Chest: COMMONS NORMALS: normal inspection of the chest Resp: COMMON NORMALS: normal respiratory effort and clear to auscultation bilaterally AUSCULTATION: clear to auscultation bilaterally Cardio: COMMON NORMALS: S1 normal heart sound present and S2 normal heart sound present; negative for No murmurs present (Cardio) HEART SOUNDS: S1 normal heart sound present and S2 normal heart sound present GI: COMMON NORMALS: Soft to palpation; negative for No hepatosplenomegaly present INSPECTION: Yes normal to inspe ction PALPATION: Yes Soft to palpation, No Firmness to palpation present (GI), No Tenderness to palpation present (GI), No Guarding due to palpation present (GI), No Rigid due to palpation and No No hepatosplenomegaly present Neuro: COMMON NORMALS: patient oriented x3 SENSORIUM/ORIENTATION: Yes oriented to person, Yes oriented to place and Yes oriented to time Psych: COMMON NORMALS: mental status grossly normal Skin: COMMON NORMALS: no rashes or lesions noted GENERAL SKIN EXAM: no rashes or lesions noted Data Micro: Micro: Microbiology 08/22/21 09:40 Urine Culture - Pr eliminary Urine,Voided 08/22/21 09:52 Blood Culture - Pr eliminary Blood NEGATIVE TO TONIE E 08/22/21 09:52 Blood Culture - Pr eliminary Blood NEGATIVE TO TONIE E 08/22/21 09:40 MRSA Culture - Fin al Nose 08/22/21 09:40 Bacterial Antigens - Final Urine,Clean Catch A&P Assessment and plan (1) Gastroparesis: After history taking physical examination and reviewing the chart and images with my personal interpretation. I would highly recommend to obtain a nuclear gastric emptying studies when patient is appropriate to do that, likely the patient is not emptying well and that would cause her acid reflux symptoms as well as repeated nausea and vomiting Status: Acute (2) Right upper quadrant abdominal pain: With regard to the right upper quadrant abdominal pain and discomfort there is a component of congestive heart failure that likely causing congestion of the liver and can cause abdominal pain. With that being said the incidental finding of the gallbladder stones could be addressed down the road once patient is medically appropriate and after analyzing her symptoms more. Likely laparoscopic cholecystectomy would be an option to discuss with the patient and her daughter but I do not see at the moment with the associated medical charles rbidities and concerns about the heart condition and poorly controlled diabetes mellitus that the patient would be a good candidate for surgery as of now. Emphasis on low-fat diet Assurance and education All questions have been answered and all concerns have been addressed to patient's satisfaction. Thank you for consulting general surgery to participate taking care Ms. Temple Status: Acute Consult Attestations Medical Necessity Statement: Per admitting service Time Spent in Patient Care: (>than 50% of time spent in counselling and/or direct pt care on unit) . 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
[2021-08-23] MEDS: isosorbide mononitrate ER 30 mg Tablet PO (18:00)
[2021-08-23] MEDS: FUROsemide 10 mg/mL SDV 4mL 40 MG IVP (18:23)
[2021-08-23 18:54] LABS: Anion Gap 20.5 (5-19); Blood Urea Nitrogen 55 mg/dL (8-23); Carbon Dioxide 16 mmol/L (22-29); Chloride 106 mmol/L (98-107); Creatinine Clr Calc Pharmacy 15.9626; Glomerular Filtration Rate 14.4 mL/min (90-130); Glucose 142 mg/dL (65-115); Magnesium 2.8 mg/dL (1.7-2.3); Osmolality Calculated 304 mOsm/kg (285-295); Phosphorus 3.9 mg/dL (2.5-4.5); Potassium 4.5 mmol/L (3.5-5.1); Sodium 138 mmol/L (136-145)
--- NOTE | 2021-08-23 18:58 | PC.NURSE ---
Shift Note Frequent safety and comfort rounds continue. Orders and/or nursing care completed as indicated. Patient monitored for response to intervention and treatment(s). Education provided includes Oxygen education, medication education upon administration, current diet plan, treatment plan, results of tests performed. Patient and daughter verbalize understanding. No reports of pain or nausea this shift. Ambulates to bedside commode. Current plan is to transfer to C[facility] if uneventful night.
--- NOTE | 2021-08-23 19:37 | P.PN_ITS ---
Subjective Subjective: Interval history: Patient was seen this morning, she is awaiting her HIDA scan, she continues to have some nausea, but significantly improved, has mild right upper quadrant pain, no chest pain, she continues to be on insulin drip, her blood sugars are better controlled, afebrile overnight, Vitals/I&O/Wt Last Vital Signs Temp 98.1 F 08/23/21 19:12 Pulse 74 08/23/21 18:00 Resp 24 H 08/23/21 06:00 BP 125/63 08/23/21 18:00 Pulse Ox 94 08/23/21 18:00 08/23/21 08/23/21 08/23/21 06:59 14:59 22:59 Intake Total 1090.07 / 3131.187 377.003 / 377.003 963.604 / 1340.607 Output Total 600 / 2000 Balance 490.07 / 1131.187 377.003 / 377.003 963.604 / 1340.607 Weight last 48 hrs Weight 73.028 kg Weight 73.028 kg Physical Exam Const: COMMON NORMALS: no acute distress and patient oriented x3 Resp: COMMON NORMALS: normal respiratory effort, No retractions, No use of accessory muscles and clear to auscultation bilaterally AUSCULTATION: clear to auscultation bilaterally Cardio: COMMON NORMALS: regular rate, regular rhythm, S1 normal heart sound present and S2 normal heart sound present RATE: regular rate RHYTHM: regular rhythm HEART SOUNDS: S1 normal heart sound present and S2 normal heart sound present GI: COMMON NORMALS: Normal to inspection, nondistended, normoactive bowel sounds present and Soft to palpation PALPATION: Yes Soft to palpation and Yes Tenderness to palpation present (GI) Details: RUQ Extremity: COMMON NORMALS: no pedal edema Neuro: COMMON NORMALS: patient oriented x3 Psych: COMMON NORMALS: mental status grossly normal Data : 08/23/21 09:30 08/23/21 18:20 Micro: Microbiology 08/22/21 09:40 Urine Culture - Preliminary Urine,Voided 08/22/21 09:52 Blood Culture - Preliminary Blood NEGATIVE TO DATE 08/22/21 09:52 Blood Culture - Preliminary Blood NEGATIVE TO DATE 08/22/21 09:40 MRSA Culture - Final Nose A&P Assessment and plan (1) Acute respiratory failure with hypoxia: Status: Acute (2) Acute pulmonary edema: Status: Acute (3) Acute hyperkalemia: Status: Acute (4) Acute renal failure superimposed on chronic kidney disease: Status: Acute Qualifiers: Acute renal failure type: unspecified (5) NSTEMI (non-ST elevated myocardial infarction): Status: Acute (6) Hyperosmolar hyperglycemic state (HHS): Status: Acute (7) Uncontrolled diabetes mellitus: Status: Acute (8) Hypertension: Status: Acute Additional A&P Information Cony Temple is a 65 year old female with past medical history of poorly controlled diabetes, hypertension, suspected gastroparesis who was brought to emergency room confused and disoriented with complaints of nausea and vomiting. She is found to have pulmonary edema, lateral T wave changes, elevated troponin, elevated BNP, hyperosmolar hyperglycemic state, acute kidney injury, severe hyperkalemia, respiratory failure secondary to anion gap metabolic acidosis. Acute respiratory failure with hypoxia -Etiology from pneumonia and/or CHF -Currently requiring 2 L, off BiPAP -Chest x-ray shows pulmonary vascular congestion, perihilar and bibasilar opacities -No wheezing on exam Plan: -Monitor respiratory status closely -continue broad-spectrum antibiotics -Follow cultures -Continue nebulizer treatments -Daily dose Lasix Hyperosmolar hyperglycemic state -Hemoglobin A1c 12.1 -Poorly controlled type 2 diabetes mellitus -Continue insulin drip -BMP/Mg/phos every 4 hours -Monitor blood sugars closely -Monitor anion gap, monitor serum ketones -Monitor mentation -IV hydration, once blood sugars are reasonable will turn off insulin drip, transition to subcu insulin -Zofran, Reglan for nausea Acute metabolic acidosis, secondary to HHS Nausea, vomiting, right upper quadrant pain -Etiology unclear at this point -Possibly multifactorial from HHS, gallbladder disease, diabetic gastroparesis, underlying NSTEMI -Patient's nausea and vomiting is somewhat responded to Reglan, continue to monitor -Right upper quadrant ultrasound here are stones and sludge in the gallbladder and a positive sonographic Nichole sign. However gallbladder wall is normal in thickness and there is no pericholecystic fluid. -CT scan of the abdomen pelvis on 08/11/2021 Cholelithiasis and gallbladder dilation. If the patient has right upper quadrant pain, consider further evaluation with right upper quadrant ultrasound. -We will pursue HIDA scan -Continue Zosyn -Follow cultures NSTEMI -6-hour troponin 1120, delta of 915 -EKG shows nonspecific ST-T wave changes - Normal LV size with a slightly diminished ejection fraction of 50%. Mild diffuse hypokinesia of the anteroseptal segment.Grade I/IV diastolic dysfunction (abnormal relaxation filling pattern), normal to mildly elevated filling pressures. Mild mitral valve regurgitation. There is no pericardial effusion. There are no intracardiac masses. Plan -Continue aspirin, statin, heparin drip -Cardiology on consult Acute kidney injury and severe hyperkalemia -Monitor creatinine, monitor potassium -We'll hold off on IV hydration -Monitor urine output -Continue Kayexalate -Nephrology on consult DVT prophylaxis. Heparin drip. CODE STATUS. She is full code according to her previous wishes per previous H&P. Will clarify with her again when her mental status normalizes. 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
[2021-08-23] MEDS: atorvastatin 40 mg Tablet PO (20:09)
[2021-08-23] MEDS: insulin lispro 100 unit/1 mL SUBCUT (20:09)
[2021-08-23] MEDS: metoprolol tartrate 25 mg Tablet 50 MG PO (20:09)
[2021-08-23 20:48] LABS: Partial Thromboplastin Time 51.7 SECONDS (23.9-36.7)
[2021-08-24] VITALS (33 sets, daily range): BP systolic 94–173; BP diastolic 48–123; PULSE 61–84; RESP 16–18; TEMP 36.4–37.1; O2SAT 90–96
[2021-08-24 04:30] LABS: Basophils # 0.1 10^3/uL (0.0-0.1); Basophils % 0.4 %; Eosinophils # 0.1 10^3/uL (0.0-0.8); Eosinophils % 1.1 %; Hematocrit 29.4 % (37.0-47.0); Hemoglobin 8.8 g/dL (11.5-15.3); Lymphocytes # 1.7 10^3/uL (0.8-4.8); Lymphocytes % 14.9 %; Mean Corpuscular HGB Conc 29.9 g/dL (30.0-36.0); Mean Corpuscular Hemoglobin 28.2 pg (28.0-34.0); Mean Corpuscular Volume 94.2 fl (81-99); Monocytes # 0.9 10^3/uL (0.2-0.9); Monocytes % 7.9 %; Neutrophils # 8.74 10^3/uL (1.8-7.7); Neutrophils % 75.1 %; Nucleated Red Blood Cells % 0 %; Platelet Count 434 10^3/cmm (130-400); Red Blood Count 3.12 10^6/uL (4.1-5.3); Red Cell Distribution Width 13.5 % (12.1-15.1); White Blood Count 11.6 10^3/uL (4.0-10.0)
[2021-08-24 05:07] LABS: Partial Thromboplastin Time 66.3 SECONDS (23.9-36.7)
[2021-08-24 05:11] LABS: Alanine Aminotransferase 41 U/L (0-33); Albumin Level 3.1 g/dL (3.5-5.2); Alkaline Phosphatase 287 IU/L (35-105); Anion Gap 22.6 (5-19); Aspartate Amino Transferase 35 U/L (0-32); Blood Urea Nitrogen 55 mg/dL (8-23); C Reactive Protein 17.8 mg/L (0.0-4.9); Calcium 8.3 mg/dL (8.5-10.5); Carbon Dioxide 15 mmol/L (22-29); Chloride 108 mmol/L (98-107); Glucose 130 mg/dL (65-115); Magnesium 2.6 mg/dL (1.7-2.3); Osmolality Calculated 309 mOsm/kg (285-295); Phosphorus 4.4 mg/dL (2.5-4.5); Potassium 4.6 mmol/L (3.5-5.1); Sodium 141 mmol/L (136-145); Total Bilirubin 0.2 mg/dL (0.15-1.2); Total Protein 5.1 g/dL (6.6-8.7)
[2021-08-24 05:14] LABS: Procalcitonin 2.66 ng/mL (0-0.5)
[2021-08-24 05:27] LABS: Lipase 33 U/L (13-60)
[2021-08-24 05:41] LABS: NT Pro B Type Natriuretic Pept 65209 pg/mL (0-125)
--- NOTE | 2021-08-24 06:00 | XR_ITS ---
WS: [id number] Exam: XR chest 1V portable [id number] Date/Time of Exam: 08/24/2021 5:27 AM Reason For Exam: pulmonary edema Comparison 08/21/2021. Bibasal pleural effusions again noted and show little change. Compressive atelectasis of both lower l obes. There may be bilateral lower lobe infiltrates present also. The heart is enlarged. Pulmonary va scularity is increased. Overall, the appearance suggest CHF. A right-sided IJ catheter ends in the ri ght atrium unchanged in position. XR/XR chest 1V portable [id number] IMPRESSION: 1. Congestive heart failure pattern with bibasal pleural effusions. There are a lso infiltrates and atelectasis in the bilateral lower lobes. Superimposed pneu monia not excluded. Overall, little change since previous study.
[2021-08-24] MEDS: insulin glargine 100 units/1 mL 10 UNIT SUBCUT ×2 (07:36→17:43)
[2021-08-24] MEDS: insulin lispro 100 unit/1 mL SUBCUT ×4 (07:37→21:52)
[2021-08-24] MEDS: FUROsemide 10 mg/mL SDV 4mL 40 MG IVP (08:20)
[2021-08-24] MEDS: isosorbide mononitrate ER 30 mg Tablet PO ×2 (08:21→17:42)
[2021-08-24] MEDS: hyDRALAzine 50 mg Tablet PO ×3 (08:21→21:52)
[2021-08-24] MEDS: sodium bicarbonate 650 mg Tablet PO ×3 (08:21→21:52)
[2021-08-24] MEDS: aspirin 325 mg Tablet PO (08:22)
[2021-08-24] MEDS: famotidine 20 mg/2 mL INJ IVP (08:22)
[2021-08-24] MEDS: metoprolol tartrate 25 mg Tablet 50 MG PO ×2 (08:25→21:52)
[2021-08-24] MEDS: vancomycin 750 MG in sodium chloride 0.9% 250 ML 250 MG IV (08:25)
[2021-08-24] MEDS: venlafaxine ER (24HR) 37.5 mg Capsule PO (08:25)
--- NOTE | 2021-08-24 09:09 | PC.CHAP ---
Pastoral Care Encounter/Spiritual Assessment Type of Contact [] Declined ferry hand visit [] Patient/Family/Request visit [] Outpatient visit [] Follow-up visit [] Physician referral [] Code/Alert [x] Routine visit [] Staff referral [] Actively dying [] Patient sleeping [] Family support [] [] Out of room [] Palliative care [] [] Receiving care in room [] Pre-surgical visit [] Trauma [] Long length of stay [x] ICU visit [] Other: Relational/Emotional Strength [] Patient feels connected with others/family/visitors/staff [] Distress [] Loneliness/isolation [] Abandonment Spirituality of Patient [] Person of Annabel [] Attends Jehovah'S Witness of their Annabel [] Believes in Prayer [] Reads Bible or Nondenominational materials [] There are Spiritual issues to be addressed Field Instructor Interventions [x] Prayer [x] Active listening [x] Non-anxious presence [x] Spiritual/emotional support [] Crisis/trauma care [] Spiritual counseling [] Bereavement support [] Provided bereavement packet [] Provided Bible/devotional materials [] Provided toy/stuffed animal, coloring book to patient or family member [] Provided Communion [] Anointing/[place] [] Salvation [x] Completed spiritual assessment [] Other: Impact on Illness or Injury [] Angry [] Fearful [] Anxious [] Often cries [] Exhaustion [] Unable to work [] Unable to attend mormonism [] Unable to walk/stand [] Unable to read [] Unable to drive [] Unable to eat/drink [] Unable to sleep [] Unable to be with family [] Patient intubated [] Other: Summary setting up in bed.. stronger.. had breakfast Time spent with patient 5 min
--- NOTE | 2021-08-24 09:10 | P.PN_ITS ---
Subjective Subjective: Interval history: Ms. Temple feels relatively well today with no acute symptoms. She did receive intravenous Lasix yesterday for pulmonary edema with a good diuretic response. No extremity edema and no shortness of breath at this time. No chest pain either. No uremic symptoms. Blood sugars are now improved. HIDA scan noted from yesterday. Medications: Reviewed: Yes Vitals/I&O/Wt Last Vital Signs Temp 98.7 F 08/24/21 08:30 Pulse 80 08/24/21 09:00 Resp 24 H 08/23/21 06:00 BP 164/123 08/24/21 09:00 Pulse Ox 94 08/24/21 09:00 08/23/21 08/24/21 08/24/21 22:59 06:59 14:59 Intake Total 1178.420 / 1555.423 50 / 1605.423 480 / 480 Output Total 750 / 750 200 / 200 Balance 1178.420 / 1555.423 -700 / 855.423 280 / 280 Weight last 48 hrs Weight 74.559 kg Weight 73.028 kg Physical Exam Narrative: EXAM NARRATIVE: Constitutional: Awake, comfortable HEENT: Wet mucosa, no jvp, non icteric Lungs: Bilaterally clear without discernible wheeze, rales in all lung zones CVS: S1 S2, no murmurs Abdo: Soft, BS ok Ext 4: Minimal edema, peripheral perfusion with no cyanosis Neurological: Grossly non-focal Data : 08/24/21 03:18 08/24/21 03:18 Micro: Microbiology 08/22/21 09:40 Urine Culture - Preliminary Urine,Voided 08/22/21 09:52 Blood Culture - Preliminary Blood NEGATIVE TO DATE 08/22/21 09:52 Blood Culture - Preliminary Blood NEGATIVE TO DATE A&P Additional A&P Information 1. Acute on chronic kidney disease Creatinine increased from 3.2-3.5 with a decrease in GFR from 14 down to 13 i.e. minimal decrease. Given her history of intermittently controlled diabetes and hypertension, I suspicion is that we are dealing with a more chronic picture from diabetic glom erulopathy and hypertensive arterionephrosclerosis. An acute component would be of unclear etiology at this time. Would defer diuretics and ivf at this time if we can Will need close follow up from Dr Fierro following DC Strict I's and O's Dose medication for GFR less than 30 2. Non-STEMI For medical mgmt per cardiology 3. Chemistry Anion gap metabolic acidosis Continue oral sodium bicarb 4. Hypertension Bp looked good yesterday, a little elevated pre-med this morning Her daughter was at bedside, answered all of her questions to her satisfaction. Ian Garay MD Nephrology [phone] Patient seen and examined via telemedicine, with the assistance of the bedside RN > 25 min spent in evaluation and mgmt of patient Attestations Medical Necessity Statement*: Eval for MYNOR/CKD Coding Level of Care Code Acute Supervisor Front for Marianneg Jo
[2021-08-24 09:58] LABS: Partial Thromboplastin Time 59.4 SECONDS (23.9-36.7)
[2021-08-24] MEDS: piperacillin-tazobactam 3.375 GM in sodium chloride 0.9% (plus) 50 ML IV ×2 (10:37→21:53)
--- NOTE | 2021-08-24 11:25 | PC.NURSE ---
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 Patient was resting when I entered to assess her and pass morning medications. Lower extremity edema of 1+ only notable finding from assessment. She stated that she got a good nights sleep and she feels much better than she did. Report of 400ml urine output over night. 40mg Lasix given this morning and out put has been approximately 300ml at this time. Patient is resting comfortably at this time.
[2021-08-24 12:33] LABS: Glucose Point of Care 123 mg/dL (70-110)
[2021-08-24 12:33] LABS: Glucose Point of Care 205 mg/dL (70-110)
[2021-08-24 12:33] LABS: Glucose Point of Care 134 mg/dL (70-110)
[2021-08-24 12:33] LABS: Glucose Point of Care 91 mg/dL (70-110)
[2021-08-24 12:33] LABS: Glucose Point of Care 129 mg/dL (70-110)
[2021-08-24 12:33] LABS: Glucose Point of Care 131 mg/dL (70-110)
[2021-08-24 12:33] LABS: Glucose Point of Care 166 mg/dL (70-110)
[2021-08-24 12:33] LABS: Glucose Point of Care 284 mg/dL (70-110)
[2021-08-24 12:33] LABS: Glucose Point of Care 77 mg/dL (70-110)
[2021-08-24 12:33] LABS: Glucose Point of Care 125 mg/dL (70-110)
[2021-08-24 12:33] LABS: Glucose Point of Care 223 mg/dL (70-110)
[2021-08-24 12:33] LABS: Glucose Point of Care 138 mg/dL (70-110)
[2021-08-24 12:33] LABS: Glucose Point of Care 223 mg/dL (70-110)
[2021-08-24 12:33] LABS: Glucose Point of Care 146 mg/dL (70-110)
[2021-08-24 12:33] LABS: Glucose Point of Care 205 mg/dL (70-110)
[2021-08-24 12:33] LABS: Glucose Point of Care 145 mg/dL (70-110)
[2021-08-24 12:33] LABS: Glucose Point of Care 234 mg/dL (70-110)
[2021-08-24 12:33] LABS: Glucose Point of Care 245 mg/dL (70-110)
[2021-08-24 12:33] LABS: Glucose Point of Care 260 mg/dL (70-110)
[2021-08-24 12:33] LABS: Glucose Point of Care 292 mg/dL (70-110)
[2021-08-24 12:33] LABS: Glucose Point of Care 411 mg/dL (70-110)
[2021-08-24 12:34] LABS: Glucose Point of Care 164 mg/dL (70-110)
[2021-08-24 12:34] LABS: Glucose Point of Care 382 mg/dL (70-110)
[2021-08-24 12:34] LABS: Glucose Point of Care 180 mg/dL (70-110)
[2021-08-24 12:34] LABS: Glucose Point of Care 200 mg/dL (70-110)
[2021-08-24 12:34] LABS: Glucose Point of Care 151 mg/dL (70-110)
[2021-08-24 12:34] LABS: Glucose Point of Care 129 mg/dL (70-110)
[2021-08-24 12:34] LABS: Glucose Point of Care 354 mg/dL (70-110)
[2021-08-24 12:34] LABS: Glucose Point of Care 128 mg/dL (70-110)
[2021-08-24 12:34] LABS: Glucose Point of Care 200 mg/dL (70-110)
[2021-08-24 12:34] LABS: Glucose Point of Care 143 mg/dL (70-110)
[2021-08-24 12:34] LABS: Glucose Point of Care 175 mg/dL (70-110)
[2021-08-24 12:34] LABS: Glucose Point of Care 126 mg/dL (70-110)
[2021-08-24 12:34] LABS: Glucose Point of Care 168 mg/dL (70-110)
[2021-08-24 12:34] LABS: Glucose Point of Care 188 mg/dL (70-110)
[2021-08-24 12:35] LABS: Glucose Point of Care 96 mg/dL (70-110)
[2021-08-24 12:35] LABS: Glucose Point of Care 236 mg/dL (70-110)
--- NOTE | 2021-08-24 13:18 | PC.SOCIAL ---
IMM update IMM updated with patient, verbalized an understanding. Copy Pg 2 provided. Initialled, dated, timed, and placed in chart.
--- NOTE | 2021-08-24 14:30 | P.PN_ITS ---
Subjective Subjective: Interval history: Patient was seen this morning, she was sitting up in the chair, no fevers, no chills, no nausea, no chest pain, she is tolerating a clear liquid diet Vitals/I&O/Wt Last Vital Signs Temp 98.7 F 08/24/21 08:30 Pulse 73 08/24/21 14:13 Resp 24 H 08/23/21 06:00 BP 139/74 08/24/21 14:00 Pulse Ox 94 08/24/21 14:00 08/23/21 08/24/21 08/24/21 22:59 06:59 14:59 Intake Total 1178.420 / 1555.423 50 / 8506.125 6021 / 1210 Output Total 750 / 750 200 / 200 Balance 1178.420 / 1555.423 -700 / 291.457 9698 / 1010 Weight last 48 hrs Weight 74.559 kg Weight 73.028 kg Physical Exam Const: COMMON NORMALS: no acute distress and patient oriented x3 Resp: COMMON NORMALS: normal respiratory effort, No retractions, No use of accessory muscles and clear to auscultation bilaterally AUSCULTATION: clear to auscultation bilaterally Cardio: COMMON NORMALS: regular rate, regular rhythm, S1 normal heart sound present and S2 normal heart sound present RATE: regular rate RHYTHM: regular rhythm HEART SOUNDS: S1 normal heart sound present and S2 normal heart sound present GI: COMMON NORMALS: Normal to inspection, nondistended, normoactive bowel sounds present, Soft to palpation and non-tender PALPATION: Yes Soft to palpation Extremity: COMMON NORMALS: no pedal edema Neuro: COMMON NORMALS: patient oriented x3 Psych: COMMON NORMALS: mental status grossly normal Data : 08/24/21 03:18 08/24/21 03:18 Micro: Microbiology 08/22/21 09:40 Urine Culture - Final Urine,Voided 08/22/21 09:52 Blood Culture - Preliminary Blood NEGATIVE TO DATE 08/22/21 09:52 Blood Culture - Preliminary Blood NEGATIVE TO DATE A&P Assessment and plan (1) Acute respiratory failure with hypoxia: Status: Acute (2) Acute pulmonary edema: Status: Acute (3) Acute hyperkalemia: Status: Acute (4) Acute renal failure superimposed on chronic kidney disease: Status: Acute Qualifiers: Acute renal failure type: unspecified (5) NSTEMI (non-ST elevated myocardial infarction): Status: Acute (6) Hyperosmolar hyperglycemic state (HHS): Status: Acute (7) Uncontrolled diabetes mellitus: Status: Acute (8) Hypertension: Status: Acute Additional A&P Information Cony Temple is a 65 year old female with past medical history of poorly controlled diabetes, hypertension, suspected gastroparesis who was brought to emergency room confused and disoriented with complaints of nausea and vomiting. She is found to have pulmonary edema, lateral T wave changes, elevated troponin, elevated BNP, hyperosmolar hyperglycemic state, acute kidney injury, severe h yperkalemia, respiratory failure secondary to anion gap metabolic acidosis, chronic cholecystitis right upper quadrant pain, MYNOR. Acute respiratory failure with hypoxia -Etiology from pneumonia and/or CHF -Currently on room air -Improving with diuresis -No wheezing on exam Plan: -Monitor respiratory status closely -Continue Zosyn -Follow cultures -Continue nebulizer treatments -Daily dose Lasix Hyperosmolar hyperglycemic state -Resolved -Hemoglobin A1c 12.1 -Poorly controlled type 2 diabetes mellitus -Continue Lantus 10 units every 12 hours, high-dose Paxil -Monitor blood sugars closely -Monitor mentation -Zofran, Reglan for nausea Acute metabolic acidosis, secondary to HHS, resolved Nausea, vomiting, right upper quadrant pain -Etiology unclear at this point -Possibly multifactorial from HHS, gallbladder disease, diabetic gastroparesis, underlying NSTEMI -Patient's nausea and vomiting is somewhat responded to Reglan, continue to monitor -Right upper quadrant ultrasound here are stones and sludge in the gallbladder and a positive sonographic Nichole sign. However gallbladder wall is normal in thickness and there is no pericholecystic fluid. -CT scan of the abdomen pelvis on 08/11/2021 Cholelithiasis and gallbladder dilation. If the patient has right upper quadrant pain, consider further evaluation with right upper quadrant ultrasound. -HIDA scan 1. No evidence of acute cholecystitis. 2. No significant gallbladder emptying at 60 minutes compatible with gallbladder dysfunction and suspicious for chronic cholecystitis. 3. Normal common bile duct and small bowel activity is visualized. -General surgery consulted, -Continue Zosyn -Advance to full liquid diet -Follow cultures NSTEMI -6-hour troponin 1120, delta of 915 -EKG shows nonspecific ST-T wave changes - Normal LV size with a slightly diminished ejection fraction of 50%. Mild diffuse hypokinesia of the anteroseptal segment.Grade I/IV diastolic dysfunction (abnormal relaxation filling pattern), normal to mildly elevated filling pressures. Mild mitral valve regurgitation. There is no pericardial effusion. There are no intracardiac masses. Plan -Continue aspirin, statin, heparin drip -Cardiology on consult Acute kidney injury and severe hyperkalemia -Monitor creatinine, monitor potassium -We'll hold off on IV hydration -Monitor urine output -Continue sodium bicarb -Nephrology on consult DVT prophylaxis. Heparin drip. CODE STATUS. She is full code according to her previous wishes per previous H&P. Will clarify with her again when her mental status normalizes. Attestations Medical Necessity Statement*: Patient requires hospitalization acute hypoxic respiratory failure, pulmonary edema, chronic cholecystitis, Coding Level of Care Code Acute Harness Tier for [facility] Diagnoses Acute respiratory failure with hypoxia J96.01 Acute pulmonary edema J81.0 Acute hyperkalemia E87.5 Acute renal failure superimposed on chronic kidney disease N17.9; N18.9 Acute renal failure type: unspecified NSTEMI (non-ST elevated myocardial infarction) I21.4 Hyperosmolar hyperglycemic state (HHS) E11.00; E11.65 Uncontrolled diabetes mellitus E11.65 Hypertension I10
[2021-08-24 15:49] LABS: Partial Thromboplastin Time 59.5 SECONDS (23.9-36.7)
--- NOTE | 2021-08-24 17:34 | PM.PN ---
Subjective Subjective: Interval history: No chest pain, feels better. remains +3 L LOS Medications: Reviewed: Yes Vitals/I&O/Wt Last Vital Signs Temp 98.7 F 08/24/21 08:30 Pulse 71 08/24/21 16:30 Resp 24 H 08/23/21 06:00 BP 123/94 08/24/21 16:30 Pulse Ox 94 08/24/21 16:30 08/24/21 08/24/21 08/24/21 06:59 14:59 22:59 Intake Total 50 / 9165.583 2180 / 1210 Output Total 750 / 750 200 / 200 Balance -700 / 291.849 0116 / 1010 Weight last 48 hrs Weight 164 lb 6 oz Weight 161 lb Physical Exam Narrative: EXAM NARRATIVE: GENERAL: Averagely built and averagely nourished in no acute distress HEENT: Pupils equal round reactive to light. No pallor or icterus. NECK: + JVD, CARDIOVASCULAR SYSTEM: S1-S2 regular. No murmur or gallops. RESPIRATORY SYSTEM: Decreased basal lung sounds and bibasilar crackles present. No wheezes rhonchi or rubs heard. ABDOMEN: Soft, nontender and nondistended. Normal bowel sounds present. EXTREMITIES: No cyanosis or clubbing. 1+ bilateral edema. No signs of chronic venous insufficiency. MACHINE REPAIR PERSON: Patient is alert oriented ?3. No focal neurological deficits. Data : 08/25/21 06:38 08/25/21 06:38 Micro: Microbiology 08/22/21 09:40 Urine Culture - Final Urine,Voided A&P Assessment and plan (1) NSTEMI (non-ST elevated myocardial infarction): Shortness of breath possibly angina equivalent -Start aspirin, statin, beta shanthi. continue heparin drip another day -May consider coronary angiogram based on clinical progression and renal function in next few days after diuresis -Increased risk of contrast-induced nephropathy. This was discussed in detail with patient and her daughter. -They are agreeable with the plan. -repeat echo with contrast Status: Acute (2) Acute pulmonary edema: -received lasix 40 mg Iv x1 - Status: Acute (3) Hyperosmolar hyperglycemic state (HHS): Status: Acute (4) Acute hyperkalemia: resolved Status: Acute Additional A&P Information Acute on chronic kidney disease: Creatinine 3.1 today Hypertension Transaminitis Anemia Leukocytosis Dyslipidemia Poorly controlled insulin-dependent type 2 diabetes mellitus Cholelithiasis Attestations Medical Necessity Statement*: Patient requires hospitalization for acute respiratory failure, HHS, NSTEMI, acute renal failure Time Spent in Patient Care: 16 - 35 minutes (>than 50% of time spent in counselling and/or direct pt care on unit). Coding Level of Care Code Acute Deputy Attorney General for [facility] Fwd Diagnoses NSTEMI (non-ST elevated myocardial infarction) I21.4 Acute pulmonary edema J81.0 Hyperosmolar hyperglycemic state (HHS) E11.00; E11.65 Acute hyperkalemia E87.5
[2021-08-24 17:49] LABS: Glucose Point of Care 304 mg/dL (70-110)
[2021-08-24 17:49] LABS: Glucose Point of Care 196 mg/dL (70-110)
--- NOTE | 2021-08-24 18:29 | PC.NURSE ---
Transfer to second floor: At approximately 1825, patient transferred to second floor room 252 bed 2. Staff at nurses station notified of arrival. Patient resting comfortably in bed and belongings at bedside. Chart and patient medications from bin delivered to staff at nurses station.
[2021-08-24 21:18] LABS: Glucose Point of Care 147 mg/dL (70-110)
[2021-08-24 21:39] LABS: Partial Thromboplastin Time 53.5 SECONDS (23.9-36.7)
[2021-08-24] MEDS: atorvastatin 40 mg Tablet PO (21:53)
[2021-08-24] MEDS: heparin 5,000 unit/mL INJ 1 mL IV (23:27)
[2021-08-25] VITALS (7 sets, daily range): BP systolic 124–185; BP diastolic 57–81; PULSE 61–90; RESP 16–18; TEMP 36.4–37.1; O2SAT 90–96
[2021-08-25] MEDS: heparin drip 25,000 UNIT/500 ML PREMIX 16.33 UNIT IV (01:14)
--- NOTE | 2021-08-25 06:00 | USCV_ITS ---
Cony Temple Age: 65 Gender: F : 1955 Exam Date: 08/25/2021 10:06 Ordering Phys: Darby Leung MD ([email or web address]) Technologist: Exam Location: [facility] [place] Indication: NSTEMI, LV function BP: 146 / 61 HR: 88 Rhythm: Sinus Technical Quality: Good MEASUREMENTS (Male / Female) Normal Values 2D ECHO LV Ejection Fraction MOD 2C 49.4 % LV Ejection Fraction 2C AL 49.9 % FINDINGS Left Ventricle Right Ventricle Right Atrium Left Atrium Mitral Valve Aortic Valve Tricuspid Valve Pulmonic Valve Pericardium Aorta CONCLUSIONS 1. This is a limited echocardiogram with ultrasound enhancing agent. 2. Normal left ventricular size and mildly decreased left ventricle systolic function. Left ventricle ejection fraction estimated at 50%. Mild hypokinesis of mid anteroseptal and apical septal and apical alexander. Darby Leung MD (Electronically Signed) Final Date: 25 August 2021 19:19 S
[2021-08-25 06:56] LABS: Glucose Point of Care 39 mg/dL (70-110)
[2021-08-25 06:56] LABS: Glucose Point of Care 49 mg/dL (70-110)
[2021-08-25 07:05] LABS: Basophils # 0.1 10^3/uL (0.0-0.1); Basophils % 0.7 %; Eosinophils # 0.1 10^3/uL (0.0-0.8); Eosinophils % 1.2 %; Hematocrit 31.9 % (37.0-47.0); Hemoglobin 9.5 g/dL (11.5-15.3); Lymphocytes # 1.4 10^3/uL (0.8-4.8); Lymphocytes % 15.9 %; Mean Corpuscular HGB Conc 29.8 g/dL (30.0-36.0); Mean Corpuscular Hemoglobin 28.8 pg (28.0-34.0); Mean Corpuscular Volume 96.7 fl (81-99); Mean Platelet Volume 10.5 fL (7.4-10.4); Monocytes # 0.7 10^3/uL (0.2-0.9); Monocytes % 7.5 %; Neutrophils # 6.44 10^3/uL (1.8-7.7); Neutrophils % 74.1 %; Nucleated Red Blood Cells % 0 %; Platelet Count 441 10^3/cmm (130-400); Red Cell Distribution Width 13.5 % (12.1-15.1); White Blood Count 8.7 10^3/uL (4.0-10.0)
[2021-08-25 07:32] LABS: Procalcitonin 1.88 ng/mL (0-0.5)
[2021-08-25 07:37] LABS: Glucose Point of Care 78 mg/dL (70-110)
[2021-08-25 07:40] LABS: Partial Thromboplastin Time 73.7 SECONDS (23.9-36.7)
[2021-08-25 07:41] LABS: Alanine Aminotransferase 54 U/L (0-33); Alkaline Phosphatase 287 IU/L (35-105); Anion Gap 20.1 (5-19); Aspartate Amino Transferase 55 U/L (0-32); Blood Urea Nitrogen 55 mg/dL (8-23); C Reactive Protein 11.3 mg/L (0.0-4.9); Calcium 8.4 mg/dL (8.5-10.5); Carbon Dioxide 16 mmol/L (22-29); Chloride 110 mmol/L (98-107); Globulin 2.7 g/dL (1.3-4.6); Glomerular Filtration Rate 12.2 mL/min (90-130); Magnesium 2.4 mg/dL (1.7-2.3); Osmolality Calculated 306 mOsm/kg (285-295); Phosphorus 4.7 mg/dL (2.5-4.5); Potassium 4.1 mmol/L (3.5-5.1); Sodium 142 mmol/L (136-145); Total Bilirubin 0.2 mg/dL (0.15-1.2); Total Protein 5.7 g/dL (6.6-8.7)
[2021-08-25 07:45] LABS: Lipase 31 U/L (13-60)
[2021-08-25 08:04] LABS: Glucose 36 mg/dL (65-115); Troponin T (5th) Once 1524 ng/L (0-10)
[2021-08-25 08:49] LABS: Glucose Point of Care 253 mg/dL (70-110)
--- NOTE | 2021-08-25 08:55 | ECG_ITS ---
[facility] Test Date: 2021-08-25 Pat Name: Cony Temple Department: Room: 252 Gender: Female Lozenge Maker: : 1955 Requested By: Sunday Johnson Order Number: [id number] Doug MD: Darby Leung M.D. Measurements Intervals [place] Rate: 88 P: 34 OR: 170 QRS: -38 QRSD: 98 T: 188 QT: 395 QTc: 480 Interpretive Statements SINUS RHYTHM WITH OCCASIONAL ECTOPIC PREMATURE COMPLEXES LEFT AXIS DEVIATION [QRS AXIS < -30] MINIMAL VOLTAGE CRITERIA FOR LVH, CONSIDER NORMAL VARIANT POSSIBLE ANTERIOR MYOCARDIAL INFARCTION , PROBABLY OLD MODERATE T-WAVE ABNORMALITY, CONSIDER LATERAL ISCHEMIA MODERATE T-WAVE ABNORMALITY, CONSIDER INFERIOR ISCHEMIA Compared to ECG 08/21/2021 22:45:56 Myocardial infarct finding now present Possible ischemia now present T-wave abnormality still present Electronically Signed On 08-26-2021 16:14:19 VALLEZ FILTER OPERATOR by Darby Leung M.D. [id number]
--- NOTE | 2021-08-25 09:28 | PM.PN ---
Subjective Subjective: Interval history: No chest pain, feels better. seen sitting in chair; oxygen saturation good on room air. She was transferred out of unit and her output probably is not well documented. Medications: Reviewed: Yes Vitals/I&O/Wt Last Vital Signs Temp 97.5 F L 08/25/21 07:34 Pulse 79 08/25/21 07:34 Resp 17 08/25/21 07:34 BP 185/76 08/25/21 07:34 Pulse Ox 90 08/25/21 07:34 08/24/21 08/25/21 08/25/21 22:59 06:59 14:59 Intake Total 1760.127 / 2970.127 332.677 / 3302.804 Output Total 400 / 600 Balance 1360.127 / 2370.127 332.677 / 2702.804 Weight last 48 hrs Weight 164 lb 6 oz Physical Exam Narrative: EXAM NARRATIVE: GENERAL: Averagely built and averagely nourished in no acute distress HEENT: Pupils equal round reactive to light. No pallor or icterus. NECK: + JVD, CARDIOVASCULAR SYSTEM: S1-S2 regular. No murmur or gallops. RESPIRATORY SYSTEM: Decreased basal lung sounds and bibasilar crackles present. No wheezes rhonchi or rubs heard. ABDOMEN: Soft, nontender and nondistended. Normal bowel sounds present. EXTREMITIES: No cyanosis or clubbing. 1+ bilateral edema. No signs of chronic venous insufficiency. CLOCK AND WATCH HANDS MOUNTER: Patient is alert oriented ?3. No focal neurological deficits. Data : 08/25/21 06:38 08/25/21 06:38 Micro: Microbiology 08/22/21 09:40 Urine Culture - Final Urine,Voided A&P Assessment and plan (1) NSTEMI (non-ST elevated myocardial infarction): Shortness of breath possibly angina equivalent -Start aspirin, statin, beta shanthi. May D/C heparin drip -plavix 300 mg PO x 1 and then plavix 75 mg daily. -Coronary angiogram if done based on worsening renal function will definitely lead to contrast-induced nephropathy. This was discussed in detail with patient and her daughter. -continue with medical managment. -Plan for stress test before discharge. -repeat echo with contrast done earlier Status: Acute (2) Acute pulmonary edema: Status: Acute (3) Hyperosmolar hyperglycemic state (HHS): Status: Acute Additional A&P Information Acute on chronic kidney disease: Creatinine 3.7 today, diuretics on hold today Hypertension: may need to uptitrate imdur. Hyperkalemia: resolved Transaminitis Anemia Leukocytosis Dyslipidemia Poorly controlled insulin-dependent type 2 diabetes mellitus Cholelithiasis Thank you for allowing me to participate in patient's care. Please feel free to call with questions or concerns Attestations Medical Necessity Statement*: Needs hospital stay for Acute on chronic kidney disease, NSTEMI and pulmonary edema Time Spent in Patient Care: 16 - 35 minutes (>than 50% of time spent in counselling and/or direct pt care on unit). Coding Level of Care Code Acute Submarine Advisory Team Watch Officer for [facility] Diagnoses NSTEMI (non-ST elevated myocardial infarction) I21.4 Acute pulmonary edema J81.0 Hyperosmolar hyperglycemic state (HHS) E11.00; E11.65
--- NOTE | 2021-08-25 09:33 | PM.PN ---
Subjective Subjective: Interval history: Ms. Temple claims to feel okay today. With no acute symptoms. She seems to be lucid, conversant, no further nausea or vomiting. No extremity edema and no other symptoms of hypervolemia. No uremic symptoms. Troponin noted to be increasing, she denies shortness of breath, chest pain or palpitations. Vitals/I&O/Wt Last Vital Signs Temp 97.5 F L 08/25/21 07:34 Pulse 79 08/25/21 07:34 Resp 17 08/25/21 07:34 BP 185/76 08/25/21 07:34 Pulse Ox 90 08/25/21 07:34 08/24/21 08/25/21 08/25/21 22:59 06:59 14:59 Intake Total 1760.127 / 2970.127 332.677 / 3302.804 Output Total 400 / 600 Balance 1360.127 / 2370.127 332.677 / 2702.804 Weight last 48 hrs Weight 74.559 kg Physical Exam Narrative: EXAM NARRATIVE: Constitutional: Awake, comfortable HEENT: Wet mucosa, no jvp, non icteric Lungs: Bilaterally clear without discernible wheeze, rales in all lung zones CVS: S1 S2, no murmurs Abdo: Soft, BS ok Ext 4: 2+ edema, peripheral perfusion with no cyanosis Neurological: Grossly non-focal Data : 08/25/21 06:38 08/25/21 06:38 Micro: Microbiology 08/22/21 09:40 Urine Culture - Final Urine,Voided A&P Additional A&P Information 1. Acute on chronic kidney disease Creatinine continues to drift up. 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 An acute component would be of unclear etiology at this time. Would defer diuretics and ivf at this time if we can Will need close follow up from Dr Fierro following DC Strict I's and O's Dose medication for GFR less than 30 2. Non-STEMI For medical mgmt per cardiology; I see consideration of C. Of note, considering her very poor renal reserve and increasing creatinine she may develop overt renal failure that will necessitate dialysis after contrast exposure. 3. Chemistry Anion gap metabolic acidosis Continue oral sodium bicarb 4. Hypertension Bp looked good yesterday, a little elevated pre-med this morning, monitor closely throughout the day Ian Garay MD Nephrology [phone] Patient seen and examined via telemedicine, with the assistance of the bedside RN > 25 min spent in evaluation and mgmt of patient Attestations Medical Necessity Statement*: Eval for renal failure Coding Level of Care Code Acute Card Punching Machine Operator for [facility]
[2021-08-25] MEDS: perflutren protein-a microsphr 0.22 mg/mL SDV 3 mL IV (10:20)
[2021-08-25] MEDS: sodium bicarbonate 650 mg Tablet PO ×3 (11:40→21:02)
[2021-08-25] MEDS: metoprolol tartrate 25 mg Tablet 50 MG PO ×2 (11:40→21:02)
[2021-08-25] MEDS: isosorbide mononitrate ER 30 mg Tablet PO ×2 (11:40→19:54)
[2021-08-25] MEDS: venlafaxine ER (24HR) 37.5 mg Capsule PO (11:40)
[2021-08-25] MEDS: hyDRALAzine 50 mg Tablet PO ×3 (11:40→21:02)
[2021-08-25] MEDS: aspirin 325 mg Tablet PO (11:41)
[2021-08-25] MEDS: famotidine 20 mg/2 mL INJ IVP (11:41)
[2021-08-25 13:06] LABS: Partial Thromboplastin Time 55.8 SECONDS (23.9-36.7)
--- NOTE | 2021-08-25 13:11 | PM.PN ---
Subjective Subjective: Interval history: Patient was seen this morning, she is having a cardiac echocardiogram, she tells me she did all right overnight, but did have a low blood sugar, as low as 30, currently her blood sugars in the 200s, no headache, no blurry vision, no nausea, no vomiting, no chest pain, no palpitations, she tells me she is actually feeling quite well this morning Vitals/I&O/Wt Last Vital Signs Temp 97.5 F L 08/25/21 07:34 Pulse 79 08/25/21 07:34 Resp 17 08/25/21 07:34 BP 185/76 08/25/21 07:34 Pulse Ox 90 08/25/21 07:34 08/24/21 08/25/21 08/25/21 22:59 06:59 14:59 Intake Total 1760.127 / 2970.127 332.677 / 3302.804 360 / 360 Output Total 400 / 600 Balance 1360.127 / 2370.127 332.677 / 2702.804 359 / 359 Weight last 48 hrs Weight 74.559 kg Physical Exam Const: COMMON NORMALS: no acute distress and patient oriented x3 Resp: COMMON NORMALS: normal respiratory effort, No retractions, No use of accessory muscles and clear to auscultation bilaterally AUSCULTATION: clear to auscultation bilaterally Cardio: COMMON NORMALS: regular rate, regular rhythm, S1 normal heart sound present and S2 normal heart sound present RATE: regular rate RHYTHM: regular rhythm HEART SOUNDS: S1 normal heart sound present and S2 normal heart sound present GI: COMMON NORMALS: Normal to inspection, nondistended, normoactive bowel sounds present, Soft to palpation and non-tender PALPATION: Yes Soft to palpation Extremity: COMMON NORMALS: no pedal edema Neuro: COMMON NORMALS: patient oriented x3 Psych: COMMON NORMALS: mental status grossly normal Data : 08/25/21 06:38 08/25/21 06:38 Micro: Microbiology 08/22/21 09:40 Urine Culture - Final Urine,Voided A&P Assessment and plan (1) Acute respiratory failure with hypoxia: Status: Acute (2) Acute pulmonary edema: Status: Acute (3) Acute hyperkalemia: Status: Acute (4) Acute renal failure superimposed on chronic kidney disease: Status: Acute Qualifiers: Acute renal failure type: unspecified (5) NSTEMI (non-ST elevated myocardial infarction): Status: Acute (6) Hyperosmolar hyperglycemic state (HHS): Status: Acute (7) Uncontrolled diabetes mellitus: Status: Acute (8) Hypertension: Status: Acute Additional A&P Information Cony Temple is a 65 year old female with past medical history of poorly controlled diabetes, hypertension, suspected gastroparesis who was brought to emergency room confused and disoriented with complaints of nausea and vomiting. She is found to have pulmonary edema, lateral T wave changes, elevated troponin, elevated BNP, hyperosmolar hyperglycemic state, acute kidney injury, severe hyperkalemia, respiratory failure secondary to anion gap metabolic acidosis, chronic cholecystitis right upper quadrant pain, MYNOR. Acute respiratory failure with hypoxia -Now resolved -On admission due to requiring 2 L, tachypnea, shortness of breath complaints -Etiology from pneumonia and/or CHF -Currently on room air -Improving with diuresis -No wheezing on exam Plan: -Monitor respiratory status closely -Continue Zosyn -Follow cultures -Continue nebulizer treatments -Currently 6 L positive -Daily dose Lasix Hyperosmolar hyperglycemic state -Resolved -Hemoglobin A1c 12.1 -Poorly controlled type 2 diabetes mellitus -Had hypoglycemia episode this morning -Decrease Lantus to 8 units every 12 hours, moderate dose sliding scale -Monitor blood sugars closely -Monitor mentation -Zofran, Reglan for nausea Acute metabolic acidosis, secondary to HHS, resolved Nausea, vomiting, right upper quadrant pain -Etiology unclear at this point -Possibly multifactorial from HHS, gallbladder disease, diabetic gastroparesis, underlying NSTEMI -Patient's nausea and vomiting is somewhat responded to Reglan, continue to monitor -Right upper quadrant ultrasound here are stones and sludge in the gallbladder and a positive sonographic Nichole sign. However gallbladder wall is normal in thickness and there is no pericholecystic fluid. -CT scan of the abdomen pelvis on 08/11/2021 Cholelithiasis and gallbladder dilation. If the patient has right upper quadrant pain, consider further evaluation with right upper quadrant ultrasound. -HIDA scan 1. No evidence of acute cholecystitis. 2. No significant gallbladder emptying at 60 minutes compatible with gallbladder dysfunction and suspicious for chronic cholecystitis. 3. Normal common bile duct and small bowel activity is visualized. -General surgery consulted, recommended medical management for now -Continue Zosyn -Advance to full liquid diet -Follow cultures Pancreatitis?, elevated lipase, elevated lipase has resolved abdominal pain has resolved, continue to monitor NSTEMI -6-hour troponin 1120, delta of 915 -EKG shows nonspecific ST-T wave changes - Normal LV size with a slightly diminished ejection fraction of 50%. Mild diffuse hypokinesia of the anteroseptal segment.Grade I/IV diastolic dysfunction (abnormal relaxation filling pattern), normal to mildly elevated filling pressures. Mild mitral valve regurgitation. There is no pericardial effusion. There are no intracardiac masses. -Troponin 1250 this morning, no chest pain complaints, EKG no acute ST-T wave changes Plan -Continue aspirin, statin, heparin drip -Cardiology on consult -We will repeat echo, switch to Lovenox Acute kidney injury and severe hyperkalemia -Monitor creatinine, up to 3.7 today, monitor potassium -We'll hold off on IV hydration -Monitor urine output -Continue sodium bicarb -Nephrology on consult DVT prophylaxis. Heparin drip. CODE STATUS. She is full code according to her previous wishes per previous H&P. Will clarify with her again when her mental status normalizes. Attestations Medical Necessity Statement*: RespitePatient requires hospitalization for HHS, NSTEMI, right upper quadrant pain, cholecystitis, acute respiratory failure Coding Level of Care Code Acute Web Development Consultant for [facility] Fwd Diagnoses Acute respiratory failure with hypoxia J96.01 Acute pulmonary edema J81.0 Acute hyperkalemia E87.5 Acute renal failure superimposed on chronic kidney disease N17.9; N18.9 Acute renal failure type: unspecified NSTEMI (non-ST elevated myocardial infarction) I21.4 Hyperosmolar hyperglycemic state (HHS) E11.00; E11.65 Uncontrolled diabetes mellitus E11.65 Hypertension I10
[2021-08-25 13:16] LABS: Glucose Point of Care 432 mg/dL (70-110)
[2021-08-25] MEDS: piperacillin-tazobactam 3.375 GM in sodium chloride 0.9% (plus) 50 ML IV ×2 (13:35→22:45)
[2021-08-25] MEDS: insulin lispro 100 unit/1 mL SUBCUT ×2 (13:35→19:54)
[2021-08-25] MEDS: insulin glargine 100 units/1 mL 8 UNIT SUBCUT ×2 (13:36→22:45)
--- NOTE | 2021-08-25 14:10 | PC.OT ---
OT EVALUATION ORDERS RECEIVED. PATIENT DEMONSTRATED NO DEFICITS IN ADL/MRADL, TRANSFERS. NO FURTHER SKILLED OT REQUIRED AT THIS TIME.
[2021-08-25 14:58] LABS: Blood Urea Nitrogen 55 mg/dL (8-23); Calcium 7.5 mg/dL (8.5-10.5); Carbon Dioxide 18 mmol/L (22-29); Chloride 102 mmol/L (98-107); Glomerular Filtration Rate 13.5 mL/min (90-130); Glucose 498 mg/dL (65-115); Osmolality Calculated 319 mOsm/kg (285-295); Sodium 136 mmol/L (136-145)
[2021-08-25] MEDS: clopidogrel 300 mg Tablet PO (16:31)
[2021-08-25 18:21] LABS: Glucose Point of Care 307 mg/dL (70-110)
[2021-08-25] MEDS: atorvastatin 40 mg Tablet PO (21:02)
[2021-08-25 22:37] LABS: Glucose Point of Care 201 mg/dL (70-110)
[2021-08-26] VITALS (9 sets, daily range): BP systolic 155–164; BP diastolic 72–83; PULSE 69–84; RESP 17–18; TEMP 36.4–36.8; O2SAT 90–96
[2021-08-26 03:05] LABS: Glucose Point of Care 85 mg/dL (70-110)
[2021-08-26 06:30] LABS: Glucose Point of Care 97 mg/dL (70-110)
[2021-08-26 07:05] LABS: Basophils # 0.1 10^3/uL (0.0-0.1); Basophils % 0.7 %; Eosinophils # 0.4 10^3/uL (0.0-0.8); Eosinophils % 5.1 %; Hemoglobin 8.9 g/dL (11.5-15.3); Lymphocytes # 1.1 10^3/uL (0.8-4.8); Lymphocytes % 14.8 %; Mean Corpuscular HGB Conc 30.7 g/dL (30.0-36.0); Mean Corpuscular Hemoglobin 28.5 pg (28.0-34.0); Mean Corpuscular Volume 92.9 fl (81-99); Mean Platelet Volume 10.5 fL (7.4-10.4); Monocytes # 0.8 10^3/uL (0.2-0.9); Monocytes % 10.1 %; Neutrophils # 5.18 10^3/uL (1.8-7.7); Nucleated Red Blood Cells % 0 %; Platelet Count 425 10^3/cmm (130-400); Red Blood Count 3.12 10^6/uL (4.1-5.3); Red Cell Distribution Width 13.5 % (12.1-15.1); White Blood Count 7.5 10^3/uL (4.0-10.0)
[2021-08-26 07:19] LABS: Alanine Aminotransferase 76 U/L (0-33); Alkaline Phosphatase 361 IU/L (35-105); Anion Gap 16.5 (5-19); Aspartate Amino Transferase 72 U/L (0-32); Blood Urea Nitrogen 50 mg/dL (8-23); Calcium 8.5 mg/dL (8.5-10.5); Carbon Dioxide 22 mmol/L (22-29); Chloride 107 mmol/L (98-107); Globulin 2.4 g/dL (1.3-4.6); Glomerular Filtration Rate 14.4 mL/min (90-130); Glucose 109 mg/dL (65-115); Magnesium 2.4 mg/dL (1.7-2.3); Osmolality Calculated 306 mOsm/kg (285-295); Phosphorus 3.6 mg/dL (2.5-4.5); Potassium 4.5 mmol/L (3.5-5.1); Sodium 141 mmol/L (136-145); Total Bilirubin 0.3 mg/dL (0.15-1.2); Total Protein 5.4 g/dL (6.6-8.7)
[2021-08-26] MEDS: clopidogrel 75 mg Tablet PO (08:24)
[2021-08-26] MEDS: venlafaxine ER (24HR) 37.5 mg Capsule PO (08:24)
[2021-08-26] MEDS: isosorbide mononitrate ER 30 mg Tablet PO ×2 (08:24→17:44)
[2021-08-26] MEDS: hyDRALAzine 50 mg Tablet PO ×3 (08:24→20:32)
[2021-08-26] MEDS: atorvastatin 40 mg Tablet PO (08:25)
[2021-08-26] MEDS: famotidine 20 mg/2 mL INJ IVP (08:25)
[2021-08-26] MEDS: aspirin 81 mg Chew Tablet PO (08:25)
[2021-08-26] MEDS: metoprolol tartrate 25 mg Tablet 50 MG PO ×2 (08:25)
[2021-08-26] MEDS: piperacillin-tazobactam 3.375 GM in sodium chloride 0.9% (plus) 50 ML IV (08:28)
[2021-08-26] MEDS: sodium bicarbonate 650 mg Tablet PO ×3 (08:28→20:32)
[2021-08-26 09:36] LABS: Glucose Point of Care 181 mg/dL (70-110)
[2021-08-26] MEDS: insulin glargine 100 units/1 mL 8 UNIT SUBCUT (09:44)
--- NOTE | 2021-08-26 10:54 | PC.SOCIAL ---
IMM Update: pg 2 of IMM updated and reviewed w/ patient. Copy provided.
--- NOTE | 2021-08-26 11:42 | P.PN_ITS ---
Subjective Subjective: Interval history: No chest pain, feels better. O2 saturation good on room air. She is insistent on being discharged today and wants to have stress test done as an outpatient. No episodes of chest pain, nausea, vomiting. Renal function has been improving but remains net positive Medications: Reviewed: Yes Vitals/I&O/Wt Last Vital Signs Temp 98.2 F 08/26/21 07:53 Pulse 84 08/26/21 07:53 Resp 17 08/26/21 07:53 BP 162/72 08/26/21 07:53 Pulse Ox 90 08/26/21 07:53 08/25/21 08/26/21 08/26/21 22:59 06:59 14:59 Intake Total 540.938 / 900.938 50 / 950.938 360 / 360 Output Total 240 / 241 Balance 300.938 / 659.938 50 / 709.938 360 / 360 Weight last 48 hrs Weight 176 lb 2 oz Physical Exam Narrative: EXAM NARRATIVE: GENERAL: Averagely built and averagely nourished in no acute distress HEENT: Pupils equal round reactive to light. No pallor or icterus. NECK: + JVD, CARDIOVASCULAR SYSTEM: S1-S2 regular. No murmur or gallops. RESPIRATORY SYSTEM: Decreased basal lung sounds present. No wheezes rhonchi heard. ABDOMEN: Soft, nontender and nondistended. Normal bowel sounds present. EXTREMITIES: No cyanosis or clubbing. 1-2+ bilateral edema. No signs of chronic venous insufficiency. SORORITY MOTHER: Patient is alert oriented ?3. No focal neurological deficits. Data : 08/26/21 06:40 08/26/21 06:40 A&P Assessment and plan (1) NSTEMI (non-ST elevated myocardial infarction): Shortness of breath possibly angina equivalent -continue aspirin, statin, beta shanthi and plavix 75 mg daily. -Coronary angiogram if done based on worsening renal function will definitely lead to contrast-induced nephropathy. This was discussed in detail with patient and her daughter. -continue with medical managment. -Plan for lexiscan stress test ANNA next week. -Patient was advised to come back to the ER with any worsening of her symptoms. -f/u in 1-2 weeks with me in [facility] Status: Acute (2) Acute pulmonary edema: Status: Acute (3) Hyperosmolar hyperglycemic state (HHS): Status: Acute Additional A&P Information Acute on chronic kidney disease: Creatinine improved. Diuretics held yesterday and today. May start on Lasix 40 mg p.o. daily on discharge repeat BMP on Sunday. Hypertension: may need to uptitrate imdur. Hyperkalemia: resolved Transaminitis Anemia Leukocytosis Dyslipidemia Poorly controlled insulin-dependent type 2 diabetes mellitus Cholelithiasis Thank you for allowing me to participate in patient's care. Please feel free to call with questions or concerns Attestations Medical Necessity Statement*: May be discharged home with close outpatient follow-up. Time Spent in Patient Care: 16 - 35 minutes Coding Level of Care Code Acute Retail Advertising Executive for g Fwd Diagnoses NSTEMI (non-ST elevated myocardial infarction) I21.4 Acute pulmonary edema J81.0 Hyperosmolar hyperglycemic state (HHS) E11.00; E11.65
--- NOTE | 2021-08-26 11:42 | P.DS_ITS ---
Discharge Providers Date of Admission: 08/21/21 21:50 Date of Discharge: August 26, 2021 Attending Provider at Admission: Lam Zhang Attending Provider at Discharge: Sunday Johnson MD Diagnoses at Discharge Discharge Diagnosis (1) NSTEMI (non-ST elevated myocardial infarction): Status: Acute (2) Acute pulmonary edema: Status: Acute (3) Hyperosmolar hyperglycemic state (HHS): Status: Acute Reason for Visit Reason for Visit: N/V/D Hospital Course Hospital Course This is a 65-year-old female with a past medical history of insulin-dependent type 2 diabetes mellitus, hypertension, chronic kidney disease, who presents to [facility] due to confusion and nausea, vomiting Cony Temple is a 65 year old female with past medical history of poorly controlled diabetes, hypertension, suspected gastroparesis who was brought to emergency room confused and disoriented with complaints of nausea and vomiting. She is found to have pulmonary edema, lateral T wave changes, elevated troponin, elevated BNP, hyperosmolar hyperglycemic state, acute kidney injury, severe hyperkalemia, respiratory failure secondary to anion gap metabolic acidosis, chronic cholecystitis right upper quadrant pain, MYNOR. Acute respiratory failure with hypoxia -Secondary to HHS, pneumonia, pulmonary edema -On admission requiring BiPAP, clinically improved, transition down to room air -Etiology from pneumonia and/or CHF -Improving with diuresis and antibiotics -Discharged on Lasix 40 mg daily, with the past several placement, and Augmentin Hyperosmolar hyperglycemic state -On admission, managed in the ICU on insulin drip -Resolved -Hemoglobin A1c 12.1 -Poorly controlled type 2 diabetes mellitus -Discharged on Lantus to 8 units every 12 hours, moderate dose sliding scale -Monitor blood sugars closely -Monitor mentation -Reglan for nausea, highly suspect diabetic gastroparesis, follow-up with primary care provider for consideration of gastric emptying study Acute metabolic acidosis, secondary to HHS, resolved Nausea, vomiting, right upper quadrant pain -Possibly multifactorial from HHS, gallbladder disease, diabetic gastroparesis, underlying NSTEMI -Patient's nausea and vomiting is somewhat responded to Reglan, continue to monitor as outpatient -Right upper quadrant ultrasound here are stones and sludge in the gallbladder and a positive sonographic Nichole sign. However gallbladder wall is normal in thickness and there is no pericholecystic fluid. -CT scan of the abdomen pelvis on 08/11/2021 Cholelithiasis and gallbladder dilation. If the patient has right upper quadrant pain, consider further evaluation with right upper quadrant ultrasound. -HIDA scan 1. No evidence of acute cholecystitis. 2. No significant gallbladder emptying at 60 minutes compatible with gallbladder dysfunction and suspicious for chronic cholecystitis. 3. Normal common bile duct and small bowel activity is visualized. -General surgery consulted, recommended medical management for now -Discharged on Augmentin, with close follow-up with general surgery as outpatient -Slowly advance diet as outpatient -Follow-up with primary care provider for consideration of gastric emptying study Pancreatitis?, elevated lipase, elevated lipase has resolved abdominal pain has resolved, continue to monitor NSTEMI -6-hour troponin 1120, delta of 915 -EKG shows nonspecific ST-T wave changes - Normal LV size with a slightly diminished ejection fraction of 50%. Mild diffuse hypokinesia of the anteroseptal segment.Grade I/IV diastolic dysfunction (abnormal relaxation filling pattern), normal to mildly elevated filling pressures. Mild mitral valve regurgitation. There is no pericardial effusion. There are no intracardiac masses. -Troponin 1250, no chest pain complaints, EKG no acute ST-T wave changes -Managed with aspirin, statin, beta-shanthi, Imdur, heparin drip as inpatient -Repeat echocardiogram given increasing troponin showed -Normal left ventricular size and mildly decreased left ventricle systolic function. Left ventricle ejection fraction estimated at 50%. Mild hypokinesis of mid anteroseptal and apical septal and apical alexander. -Given her creatinine of 3.2, high risk of contrast-induced nephropathy, discuss ed angiogram with patient, for now she has declined angiography, follow-up as outpatient -Continue aspirin, statin, Plavix, beta-shanthi, Imdur on discharge -Discussed with patient about doing stress test, however patient declined for now, patient advised that she wanted to wait, discussed risks of delaying testing, advised of morbidity and mortality associated, she voiced understanding, all questions answered, will follow up with cardiology -We will discharge on Lasix 40 mg daily with potassium replacement, recheck creatinine on Sunday at cardiology -W Acute kidney injury and severe hyperkalemia -Creatinine 3.2 on discharge -We'll hold off on hydration, +6 L -Monitor urine output -Continue sodium bicarb -Follow-up with nephrology as outpatient Physical Exam Const: COMMON NORMALS: no acute distress and patient oriented x3 Resp: COMMON NORMALS: normal respiratory effort, No retractions, No use of accessory muscles and clear to auscultation bilaterally AUSCULTATION: clear to auscultation bilaterally Cardio: COMMON NORMALS: regular rate, regular rhythm, S1 normal heart sound present and S2 normal heart sound present RATE: regular rate RHYTHM: regular rhythm HEART SOUNDS: S1 normal heart sound present and S2 normal heart sound present GI: COMMON NORMALS: Normal to inspection, nondistended, normoactive bowel sounds present, Soft to palpation and non-tender PALPATION: Yes Soft to palpation Extremity: COMMON NORMALS: no pedal edema Neuro: COMMON NORMALS: patient oriented x3 Psych: COMMON NORMALS: mental status grossly normal Discharge Data Data Completed and Pending: Completed Studies During Hospitalization Category Date Time Status XR acute abdomen series [id number] Stat Exams 08/21/21 13:25 Completed XR chest 1V lorna ble [id number] Routine Exams 08/24/21 06:00 Completed XR chest 1V lorna ble [id number] Stat Exams 08/21/21 03:22 Completed NM hepatobiliary w phar* [id number] Rout ine Nuc Med 08/23/21 12:32 Completed CV. echo complete * [id number] Routine Ultrasound 08/22/21 21:40 Completed CV. echo lmt w/w contras [id number] Rout ine Ultrasound 08/25/21 06:00 Completed US gall bladder 7 [id number] Urgent Ultrasound 08/21/21 21:33 Completed Pending at discharge Category Date Time Status Blood Culture Sta t Lab 08/22/21 09:52 Results Sputum Culture an d Gram Stain Stat Lab 08/22/21 08:24 Uncollected Labs from last 24 hours 08/26/21 08/26/21 08/26/21 09:34 06:40 06:40 WBC 7.5 RBC 3.12 L Hgb 8.9 L Hct 29.0 L MCV 92.9 MCH 28.5 MCHC 30.7 RDW 13.5 Plt Count 425 H MPV 10.5 H Neut % (Auto) 69.0 Lymph % (Auto) 14.8 Kaufman % (Auto) 10.1 Eos % (Auto) 5.1 Baso % (Auto) 0.7 Neut # (Auto) 5.18 Lymph # (Auto) 1.1 Kaufman # (Auto) 0.8 Eos # (Auto) 0.4 Baso # (Auto) 0.1 Nucleated RBC % (a uto) 0 Nucleated RBCs # 0.0 APTT Sodium 141 Potassium 4.5 Chloride 107 Carbon Dioxide 22 Anion Gap 16.5 BUN 50 H Creatinine 3.2 H GFR Calculation 14.4 L Glucose 109 POC Glucose 181 H Calculated Osmolal ity 306 H Calcium 8.5 Phosphorus 3.6 Magnesium 2.4 H Total Bilirubin 0.3 AST 72 H ALT 76 H Alkaline Phosphata se 361 H Total Protein 5.4 L Albumin 3.0 L Globulin 2.4 08/26/21 08/26/21 08/25/21 06:28 03:02 22:35 WBC RBC Hgb Hct MCV MCH MCHC RDW Plt Count MPV Neut % (Auto) Lymph % (Auto) Kaufman % (Auto) Eos % (Auto) Baso % (Auto) Neut # (Auto) Lymph # (Auto) Kaufman # (Auto) Eos # (Auto) Baso # (Auto) Nucleated RBC % (a uto) Nucleated RBCs # APTT Sodium Potassium Chloride Carbon Dioxide Anion Gap BUN Creatinine GFR Calculation Glucose POC Glucose 97 85 201 H Calculated Osmolal ity Calcium Phosphorus Magnesium Total Bilirubin AST ALT Alkaline Phosphata se Total Protein Albumin Globulin 08/25/21 08/25/21 08/25/21 17:46 14:00 13:07 WBC RBC Hgb Hct MCV MCH MCHC RDW Plt Count MPV Neut % (Auto) Lymph % (Auto) Kaufman % (Auto) Eos % (Auto) Baso % (Auto) Neut # (Auto) Lymph # (Auto) Kaufman # (Auto) Eos # (Auto) Baso # (Auto) Nucleated RBC % (a uto) Nucleated RBCs # APTT Sodium 136 Potassium 5.0 Chloride 102 Carbon Dioxide 18 L Anion Gap 21.0 H BUN 55 H Creatinine 3.4 H GFR Calculation 13.5 L Glucose 498 H POC Glucose 307 H 432 H Calculated Osmolal ity 319 H Calcium 7.5 L Phosphorus Magnesium Total Bilirubin AST ALT Alkaline Phosphata se Total Protein Albumin Globulin 08/25/21 12:27 WBC RBC Hgb Hct MCV MCH MCHC RDW Plt Count MPV Neut % (Auto) Lymph % (Auto) Kaufman % (Auto) Eos % (Auto) Baso % (Auto) Neut # (Auto) Lymph # (Auto) Kaufman # (Auto) Eos # (Auto) Baso # (Auto) Nucleated RBC % (a uto) Nucleated RBCs # APTT 55.8 H Sodium Potassium Chloride Carbon Dioxide Anion Gap BUN Creatinine GFR Calculation Glucose POC Glucose Calculated Osmolal ity Calcium Phosphorus Magnesium Total Bilirubin AST ALT Alkaline Phosphata se Total Protein Albumin Globulin Vitals: Last Vital Signs Temp 98.2 F 08/26/21 07:53 Pulse 84 08/26/21 07:53 Resp 17 08/26/21 07:53 BP 162/72 08/26/21 07:53 Pulse Ox 90 08/26/21 07:53 Discharge Plan Discharge Patient Disposition: Home Condition: Stable Prescriptions: New atorvastatin 40 mg Tablet 40 mg PO BEDTIME 30 Days Qty: 30 RF: 0 clopidogrel 75 mg Tablet 75 mg PO DAILY 30 Days Qty: 30 RF: 0 aspirin [Children's Aspirin] 81 mg Tablet,Chewable 81 mg PO DAILY 30 Days Qty: 30 RF: 0 furosemide [Lasix] 40 mg tablet 40 mg PO DAILY 30 Days Qty: 30 RF: 0 potassium chloride [Klor-Con 10] 10 mEq tablet extended release 10 meq PO DAILY 30 Days Qty: 30 RF: 0 amoxicillin-pot clavulanate [Augmentin] 875-125 mg tablet 1 tab PO BID 10 Days Qty: 20 RF: 0 hydralazine 50 mg Tablet 50 mg PO TID 30 Days Qty: 90 RF: 0 sodium bicarbonate 650 mg Tablet 650 mg PO TID 30 Days Qty: 90 RF: 0 metoprolol tartrate 25 mg Tablet 50 mg PO BID@0900,2100 30 Days Qty: 60 RF: 0 isosorbide mononitrate 30 mg Tablet Extended Release 24 Hr 30 mg PO BID 30 Days Qty: 60 RF: 0 Lantus Solostar U-100 Insulin 100 unit/mL (3 mL) insulin pen 8 unit SUBCUT Q12H 30 Days Qty: 4.8 RF: 0 Continued venlafaxine 37.5 mg Tablet 37.5 mg PO DAILY RF: 0 omega-3 fatty acids Capsule 1,000 mg PO DAILY RF: 0 lorazepam 0.5 mg Tablet 0.5 mg PO TID PRN (Reason: Anxiety) RF: 0 pantoprazole 40 mg Tablet,Delayed Release (Dr/Ec) 40 mg PO DAILY RF: 0 metoclopramide HCl 10 mg Tablet 10 mg PO .TID & AT BEDTIME RF: 0 Novolog Flexpen U-100 Insulin 100 unit/mL (3 mL) Insulin Pen See Rx Instructions .ROUTE .COMPLEX RF: 0 Discontinued metformin 500 mg Tablet 500 mg PO BID RF: 0 torsemide 20 mg Tablet 20 mg PO DAILY RF: 0 Hold Instructions: Resume on 08/29/21. glipizide 10 mg Tablet 10 mg PO BID RF: 0 aspirin 81 mg Tablet,Delayed Release (Dr/Ec) 81 mg PO DAILY RF: 0 lisinopril 10 mg Tablet 10 mg PO DAILY RF: 0 triamterene-hydrochlorothiazid 75-50 mg Tablet 1 tab PO DAILY RF: 0 atenolol 50 mg Tablet 50 mg PO BID RF: 0 Discharge Orders: Discharge Order (Routine); Ordered 08/26/21 Ordered By: Sunday Johnson Referrals: Jose Fierro MD [Referring] - 1 week (esrd) Dennys Blake MD [Physician] - 2 weeks Darby Leung MD [Physician] - 08/29/21 (needs to be seen on sunday) Discharge Diet: Regular Discharge Activity: Resume usual activity Patient Instructions: Opioid Safety Activity Restrictions/Additional Instructions: -Take Lasix as prescribed, follow-up with cardiology on Sunday for recheck kidney function -Please check blood sugars 3 times daily -Recorded blood sugar log -Bring them to primary care physician's office -If blood sugar greater than 500 call primary care -If blood sugar less than 60, drink juice or eat a hard candy go to primary care -I have discharged you on Lantus 8 units twice daily -With a NovoLog sliding scale as provided below -We have discharged you on multiple blood thinners, if you develop bloody or black stools go to the emergency room -I have discharged you on antibiotics for your cholecystitis follow-up with general surgery Fingerstick Blood Glucose Insulin Units 141-180 mg/dl 4 units/SQ 181-220 mg/dl 6 units/SQ 221-260 mg/dl 8 units/SQ 261-300 mg/dl 10 units/SQ 301-350 mg/dl 12 units/SQ 351-400 mg/dl 14 units/SQ greater than 400 mg/dl 16 units/SQ Discharge Attestations Time Spent in Discharge Care*: less than 30 min Quality Metrics Clinical Quality Measures During this hospital stay, did patient experience: None Coding Level of Care Code Acute Chg FW DC note Diagnoses NSTEMI (non-ST elevated myocardial infarction) I21.4 Acute pulmonary edema J81.0 Hyperosmolar hyperglycemic state (HHS) E11.00; E11.65
[2021-08-26 11:55] LABS: Glucose Point of Care 164 mg/dL (70-110)
[2021-08-26] MEDS: insulin lispro 100 unit/1 mL SUBCUT (11:57)
--- NOTE | 2021-08-26 12:36 | PC.CHAP ---
Pastoral Care Encounter/Spiritual Assessment Type of Contact [xx] Declined asset management lead visit [] Patient/Family/Request visit [] Outpatient visit [xx] Follow-up visit [] Physician referral [] Code/Alert [xx] Routine visit [] Staff referral [] Actively dying [] Patient sleeping [] Family support [] [] Out of room [] Palliative care [] [] Receiving care in room [] Pre-surgical visit [] Trauma [xx] Long length of stay [] ICU visit [] Other: Relational/Emotional Strength [] Patient feels connected with others/family/visitors/staff [] Distress [] Loneliness/isolation [] Abandonment Spirituality of Patient [] Person of Annabel [] Attends Tenriism of their Annabel [] Believes in Prayer [] Reads Bible or Alevism materials [] There are Spiritual issues to be addressed White Metal Caster Interventions [] Prayer [] Active listening [] Non-anxious presence [] Spiritual/emotional support [] Crisis/trauma care [] Spiritual counseling [] Bereavement support [] Provided bereavement packet [] Provided Bible/devotional materials [] Provided toy/stuffed animal, coloring book to patient or family member [] Provided Communion [] Anointing/Grandy [] Salvation [] Completed spiritual assessment [] Other: Impact on Illness or Injury [] Angry [] Fearful [] Anxious [] Often cries [] Exhaustion [] Unable to work [] Unable to attend baptist [] Unable to walk/stand [] Unable to read [] Unable to drive [] Unable to eat/drink [] Unable to sleep [] Unable to be with family [] Patient intubated [] Other: Summary Patient was on video call and did not want to be interrupted. Declined asset management lead visit. Time spent with patient 1 minute
--- NOTE | 2021-08-26 13:21 | PC.NURSE ---
Information faxed to [facility] at [phone] for referral.
--- NOTE | 2021-08-26 14:13 | P.PN_ITS ---
Subjective Subjective: Interval history: Ms. Temple feels well, she is keen to go home. No chest pain, no shortness of breath, no extremity edema no other hypervolemic symptoms, no uremic symptoms. Medications: Reviewed: Yes Vitals/I&O/Wt Last Vital Signs Temp 97.7 F 08/26/21 11:49 Pulse 74 08/26/21 11:49 Resp 17 08/26/21 11:49 BP 161/76 08/26/21 11:49 Pulse Ox 94 08/26/21 11:49 08/25/21 08/26/21 08/26/21 22:59 06:59 14:59 Intake Total 540.938 / 900.938 50 / 950.938 410 / 410 Output Total 240 / 241 Balance 300.938 / 659.938 50 / 709.938 410 / 410 Weight last 48 hrs Weight 79.889 kg Physical Exam Narrative: EXAM NARRATIVE: Constitutional: Awake, comfortable HEENT: Wet mucosa, no jvp, non icteric Lungs: Bilaterally clear without discernible wheeze, rales in all lung zones CVS: S1 S2, no murmurs Abdo: Soft, BS ok Ext 4: 2+ edema, peripheral perfusion with no cyanosis Neurological: Grossly non-focal Data : 08/26/21 06:40 08/26/21 06:40 A&P Additional A&P Information 1. 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 An acute component would be of unclear etiology at this time. Will need close follow up from Dr Fierro following DC Strict I's and O's Dose medication for GFR less than 30 2. Non-STEMI For medical mgmt per cardiology; I see consideration of LHC. Of note, considering her very poor renal reserve and increasing creatinine she may develop overt renal failure that will necessitate dialysis after contrast exposure. 3. Chemistry Anion gap metabolic acidosis Continue oral sodium bicarb 4. Hypertension Bp looked good OK for DC today Ian Garay MD Nephrology [phone] Patient seen and examined via telemedicine, with the assistance of the bedside RN > 25 min spent in evaluation and mgmt of patient Attestations Medical Necessity Statement*: koffi for MYNOR on CKD Coding Level of Care Code Acute Capital Campaign Fundraiser for Vikas Osorio
[2021-08-26 17:32] LABS: Glucose Point of Care 112 mg/dL (70-110)
--- NOTE | 2021-08-26 22:01 | PC.NURSE ---
Discharge Note Patient discharged to [HOME ] via [PERSONAL VEHICLE ] accompanied by [DAUGHTER]. Discharge instructions reviewed with patient and/or access representative. Mobile pharmacy medications and/or prescriptions provided. Belongings/home medications returned.
== END 2021-08-26 22:02 | disposition home or self-care (01) | DRG 280 ==
LOC: ER 21:49 → ICU 22:29 → MEDSURG 08-24 18:36
PROVIDERS: Emergency Medicine; Internal Medicine Cardiovascular Disease; Internal Medicine Nephrology; Student in an Organized Health Care Education/Training Program; Admitting Provider Internal Medicine; Emergency Provider Emergency Medicine; Visit Provider Family Medicine
DX: I21.4 Non-ST elevation (NSTEMI) myocardial infarction (principal); E11.00 Type 2 diabetes mellitus with hyperosmolarity without nonketotic hyperglycemic-hyperosmolar coma (NKHHC); J96.01 Acute respiratory failure with hypoxia; I13.0 Hypertensive heart and chronic kidney disease with heart failure and stage 1 through stage 4 chronic kidney disease, or unspecified chronic kidney disease; N17.9 Acute kidney failure, unspecified; K80.10 Calculus of gallbladder with chronic cholecystitis without obstruction; E11.43 Type 2 diabetes mellitus with diabetic autonomic (poly)neuropathy; E11.65 Type 2 diabetes mellitus with hyperglycemia; K31.84 Gastroparesis; E11.22 Type 2 diabetes mellitus with diabetic chronic kidney disease; N18.9 Chronic kidney disease, unspecified; I50.9 Heart failure, unspecified; E86.0 Dehydration; E87.5 Hyperkalemia; E78.5 Hyperlipidemia, unspecified; Z79.4 Long term (current) use of insulin
CPT/HCPCS: 36415; 36416; 36556; 36592; 36600; 71045; 74022; 76705; 78227; 80048; 80051; 80053; 80061; 80069; 80076; 81001; 82009; 82330; 82550; 82570; 82803; 82805; 82962; 82977; 83605; 83690; 83735; 83880; 84100; 84145; 84156; 84300; 84443; 84484; 84540; 84550; 85025; 85049; 85378; 85730; 86140; 86403; 87040; 87086; 87426; 87641; 93005; 93306; 93976; 94640; 94660; 94664; 96365; 96366; 96372; 96375; 97161; 99291; 99292; A9537; C1751; C8924; J0360; J1644; J1815 ×2; J1940; J2250; J2405; J2543; J2765; J2930; J3370; J3475; J3490; J7030; J7050; Q3014; Q9956

== ENCOUNTER 2021-08-29 10:04 | Inpatient (IN) | payer MEDICARE, MEDICAID, SELFPAY ==
[2021-08-29] VITALS (12 sets, daily range): BP systolic 137–187; BP diastolic 73–119; PULSE 101–111; RESP 14–25; TEMP 36.3–36.9; O2SAT 90–99; BMI 32.0
--- NOTE | 2021-08-29 10:08 | ED_ITS ---
HPI - SOB/Dyspnea General: Chief Complaint: Nausea/Vomiting/Diarrhea Stated Complaint: N/V, SOB Time Seen by Provider: 08/29/21 10:05 History of Present Illness: HPI Narrative: 65-year-old female presents emergency room via EMS for shortness of breath. Patient was hospitalized last week at our facility at that time she was having epigastric right upper quadrant pain was thought to have cholecystitis. She did receive a central line at that time. Ultimately they did not do surgery per her report was because of comorbid conditions. Patient has a history of hypertension diabetes mellitus and coronary artery disease. Her discharge summary however states that she had an NSTEMI with acute pulmonary edema and hyperosmolar hyperglycemic state. Mild acute metabolic acidosis was noted at admission as well. She has been having increasing loose stools shortness of breath and nonproductive cough. She denies any anosmia myalgias nausea vomimtting or fever (nurses notes states n/v/d but pt downplays). She has not been vaccinated for Covid. MD elicited complaint: shortness of breath and cough Pertinent past history: COPD, congestive heart failure and other (Recent hospitalization for NSTEMI associated with congestive heart failure) Onset (ago): day(s) Timing: constant Severity: mild Exacerbating factors: lying flat, exertion and coughing Relieving factors: oxygen, rest and upright position Known history of: COPD and congestive heart failure Associated symptoms: Reports chest congestion, cough and orthopnea; Deny abdominal pain, chest pain, diaphoresis, dizziness, extremity pain, fever(s), hemoptysis, lightheadedness, myalgias, nausea, palpitations, paresthesias, polydipsia, polyuria, rash, sense of impending doom, syncope or vomiting Treatment prior to arrival: oxygen Review of Systems Const: Denies: fever(s) or diaphoresis ENMT: Denies: throat pain, ear or mastoid pain, nasal discharge or nasal congestion Card: Reports: orthopnea; Denies: chest pain, palpitations, lightheadedness or syncope Resp: Reports: chest congestion; Denies: hemoptysis GI: Denies: abdominal pain, nausea or vomiting : Denies: flank pain, difficulty voiding, dysuria, urinary frequency or urinary urgency Musc: Denies: extremity pain Skin/Breast: Denies: rash or pruritus Neuro: Denies: dizziness Endo: Denies: polyuria or polydipsia PFSH ED PFSH: Medical History Gastroparesis Hypertension Uncontrolled diabetes mellitus Physical Exam Const: COMMON NORMALS: no acute distress GENERAL APPEARANCE: cooperative and comfortable ORIENTATION/CONSCIOUSNESS: Yes awake, Yes oriented to person, Yes oriented to place and Yes oriented to time HENMT: COMMON NORMALS: normocephalic, atraumatic and hearing grossly normal bilaterally HEAD & SCALP: normocephalic and atraumatic Neck/C-Spine: COMMON NORMALS: full ROM, no lymphadenopathy, supple and no JVD Lymph: LYMPHATIC: no lymphadenopathy noted and no lymphedema noted Resp: COMMON NORMALS: normal respiratory effort, No retractions and No use of accessory muscles AUSCULTATION: crackles (Bilateral to base) Cardio: COMMON NORMALS: no JVD, regular rate, regular rhythm and No murmurs present (Cardio) RATE: regular rate RHYTHM: regular rhythm GI: COMMON NORMALS: Soft to palpation and No hepatosplenomegaly present AUSCULTATION: Yes normoactive bowel sounds PALPATION: Yes Soft to palpation, No Tenderness to palpation present (GI), No Guarding due to palpation present (GI) and Yes No hepatosplenomegaly present Extremity: COMMON NORMALS: normal to inspection, capillary refill normal, no clubbing, cyanosis or edema, no calf tenderness and no pedal edema Neuro: SENSORIUM/ORIENTATION: Yes oriented to person, Yes oriented to place and Yes oriented to time Skin: COMMON NORMALS: no rashes or lesions noted GENERAL SKIN EXAM: no rashes or lesions noted Course Vital Signs: Vital signs: Vital Signs Temperature 98.3 F 08/30/21 03:55 Pulse Rate 85 08/30/21 15:15 Respiratory Rate 18 08/30/21 13:48 Blood Pressure 105/64 08/30/21 15:15 Pulse Oximetry 98 08/30/21 14:45 MDM - SOB/Dyspnea MDM Narrative: Medical decision making narrative: Patient has elevated troponin on the 2-hour troponin. I am also concerned she may have a PE he could be with troponins have been cleared from her previous NSTEMI however they are significantly elevated and the second 1 is increasing. Her kidney function is actually a little improved from previous. Anion gap is normal discussed Dr. needed and will admit. Also discussed with cardiology they recommend heparinization at this point. Given the concern for PE as well as elevated troponin on the 2-hour clinically is indicated. Lab Data: Labs: Lab Results 08/29/21 08/29/21 08/29/21 10:12 11:42 11:42 WBC 11.5 10^3/uL H 10 ^3/uL (4.0-10.0) RBC 3.46 10^6/uL L 10 ^6/uL (4.1-5.3) Hgb 9.9 g/dL L g/dL (11.5-15.3) Hct 32.6 % L % (37.0-47.0) MCV 94.2 fl fl (81-99) MCH 28.6 pg pg (28.0-34.0) MCHC 30.4 g/dL g/dL (30.0-36.0) RDW 14.0 % % (12.1-15.1) Plt Count 462 10^3/cmm H 10 ^3/cmm (130-400) MPV 10.6 fL H fL (7.4-10.4) Neut % (Auto) 85.0 % % Lymph % (Auto) 5.5 % % Bollinger % (Auto) 7.4 % % Eos % (Auto) 0.9 % % Baso % (Auto) 0.5 % % Neut # (Auto) 9.77 10^3/uL H 10 ^3/uL (1.8-7.7) Lymph # (Auto) 0.6 10^3/uL L 10^ 3/uL (0.8-4.8) Bollinger # (Auto) 0.9 10^3/uL 10^3/ uL (0.2-0.9) Eos # (Auto) 0.1 10^3/uL 10^3/ uL (0.0-0.8) Baso # (Auto) 0.1 10^3/uL 10^3/ uL (0.0-0.1) Nucleated RBC % (a uto) 0 % % Nucleated RBCs # 0.0 /100WBC /100W BC Sodium 143 mmol/L mmol/L (136-145) Potassium 4.3 mmol/L mmol/L (3.5-5.1) Chloride 107 mmol/L mmol/L (98-107) Carbon Dioxide 23 mmol/L mmol/L (22-29) Anion Gap 17.3 (5-19) BUN 42 mg/dL H mg/dL (8-23) Creatinine 2.4 mg/dL H mg/dL (0.5-0.9) GFR Calculation 20.1 mL/min L mL/ min (90-130) Glucose 239 mg/dL H mg/dL (65-115) POC Glucose 235 mg/dL H mg/dL (70-110) Calculated Osmolal ity 314 mOsm/kg H mOs m/kg (285-295) Calcium 8.0 mg/dL L mg/dL (8.5-10.5) Total Bilirubin 0.2 mg/dL mg/dL (0.15-1.2) AST 25 U/L U/L (0-32) ALT 47 U/L H U/L (0-33) Alkaline Phosphata se 379 IU/L H IU/L (35-105) Troponin T Baselin e Troponin T 120 Min [place] Delta Troponin T NT-Pro-B Natriuret Pep 16145 pg/mL H pg/ mL (0-125) Total Protein 5.5 g/dL L g/dL (6.6-8.7) Albumin 3.4 g/dL L g/dL (3.5-5.2) Globulin 2.1 g/dL g/dL (1.3-4.6) Procalcitonin SARS-CoV-2 Ag (Rap id) 08/29/21 08/29/21 08/29/21 11:42 11:42 12:29 WBC RBC Hgb Hct MCV MCH MCHC RDW Plt Count MPV Neut % (Auto) Lymph % (Auto) Bollinger % (Auto) Eos % (Auto) Baso % (Auto) Neut # (Auto) Lymph # (Auto) Bollinger # (Auto) Eos # (Auto) Baso # (Auto) Nucleated RBC % (a uto) Nucleated RBCs # Sodium Potassium Chloride Carbon Dioxide Anion Gap BUN Creatinine GFR Calculation Glucose POC Glucose Calculated Osmolal ity Calcium Total Bilirubin AST ALT Alkaline Phosphata se Troponin T Baselin e 1177 ng/L H* ng/L (0-10) Troponin T 120 Min [place] Delta Troponin T NT-Pro-B Natriuret Pep Total Protein Albumin Globulin Procalcitonin 0.50 ng/mL ng/mL (0-0.5) SARS-CoV-2 Ag (Rap id) Negative (Negative) 08/29/21 13:36 WBC RBC Hgb Hct MCV MCH MCHC RDW Plt Count MPV Neut % (Auto) Lymph % (Auto) Bollinger % (Auto) Eos % (Auto) Baso % (Auto) Neut # (Auto) Lymph # (Auto) Bollinger # (Auto) Eos # (Auto) Baso # (Auto) Nucleated RBC % (a uto) Nucleated RBCs # Sodium Potassium Chloride Carbon Dioxide Anion Gap BUN Creatinine GFR Calculation Glucose POC Glucose Calculated Osmolal ity Calcium Total Bilirubin AST ALT Alkaline Phosphata se Troponin T Baselin e Troponin T 120 Min [place] 1240 ng/L H ng/L (0-10) Delta Troponin T 63 ABS# H* ABS# (0-10) NT-Pro-B Natriuret Pep Total Protein Albumin Globulin Procalcitonin SARS-CoV-2 Ag (Rap id) Discharge Plan Discharge Patient Disposition: Admitted As Inpatient Admit Provider: Pattie Demarco Clinical Impression: NSTEMI (non-ST elevated myocardial infarction), Uncontrolled diabetes mellitus, Hypertension, Acute on chronic diastolic CHF (congestive heart failure), CKD (chronic kidney disease) Condition: Stable Coding Level of Care Code ED Oiler Bander for Vikas Fwd Exam Comprehensive
--- NOTE | 2021-08-29 10:19 | XRR_ITS ---
PROCEDURE INFORMATION: Exam: XR Chest Exam date and time: 08/29/2021 10:19 AM Age: 65 years old Clinical indication: Patient HX: Coughing for one month, having difficulty breathing; Additional info: Dyspnea/cough TECHNIQUE: Imaging protocol: XR of the chest. Views: 1 view. COMPARISON: CR XR chest 1V portable [id number] 08/24/2021 5:34 AM FINDINGS: Lungs: Interstitial prominence and bibasilar airspace disease. Pleural spaces: Bilateral pleural effusions. Heart/Mediastinum: No cardiomegaly. Bones/joints: Osteopenia and degenerative change. XR/XR chest 1V portable [id number] IMPRESSION: 1. Interstitial prominence and bibasilar airspace disease. 2. Bilateral pleural effusions. Radiation Dose CTDIVOL = (mGy): DLP = (mGy-cm)
--- NOTE | 2021-08-29 10:20 | ECG_ITS ---
[facility] Test Date: 2021-08-29 Pat Name: Cony Temple Department: Room: Gender: Female Sizing Sprayer: : 1955 Requested By: José Miguel Cha Order Number: [id number] Doug MD: Krupa Yarbrough M.D. Measurements Intervals [place] Rate: 105 P: 83 VA: 151 QRS: 1 QRSD: 101 T: 208 QT: 324 QTc: 429 Interpretive Statements SINUS T[address] DEVIATION AND MODERATE T-WAVE ABNORMALITY, CONSIDER LATERAL ISCHEMIA [-0.1+ mV T-WAVE IN I/aVL/V5/V6] ST DEVIATION AND MODERATE T-WAVE ABNORMALITY, CONSIDER INFERIOR ISCHEMIA [-0.1+ mV T-WAVE IN II/aVF] Compared to ECG 08/25/2021 09:48:24 Sinus rhythm no longer present Left-axis deviation no longer present Myocardial infarct finding no longer present T-wave abnormality still present Possible ischemia still present Electronically Signed On 08-29-2021 20:01:34 CONSTRUCTION WORKER by Krupa Yarbrough M.D. [id number]
[2021-08-29 11:59] LABS: Basophils # 0.1 10^3/uL (0.0-0.1); Basophils % 0.5 %; Eosinophils # 0.1 10^3/uL (0.0-0.8); Eosinophils % 0.9 %; Hematocrit 32.6 % (37.0-47.0); Hemoglobin 9.9 g/dL (11.5-15.3); Lymphocytes # 0.6 10^3/uL (0.8-4.8); Lymphocytes % 5.5 %; Mean Corpuscular HGB Conc 30.4 g/dL (30.0-36.0); Mean Corpuscular Hemoglobin 28.6 pg (28.0-34.0); Mean Corpuscular Volume 94.2 fl (81-99); Mean Platelet Volume 10.6 fL (7.4-10.4); Monocytes # 0.9 10^3/uL (0.2-0.9); Monocytes % 7.4 %; Neutrophils # 9.77 10^3/uL (1.8-7.7); Nucleated Red Blood Cells % 0 %; Platelet Count 462 10^3/cmm (130-400); Red Blood Count 3.46 10^6/uL (4.1-5.3); White Blood Count 11.5 10^3/uL (4.0-10.0)
--- NOTE | 2021-08-29 12:20 | ECG_ITS ---
[facility] Test Date: 2021-08-29 Pat Name: Cony Temple Department: Room: 104 Gender: Female Scientist Immunology: : 1955 Requested By: José Miguel Cha Order Number: [id number] Doug MD: Krupa Yarbrough M.D. Measurements Intervals [place] Rate: 107 P: 76 AR: 173 QRS: -4 QRSD: 89 T: 59 QT: 364 QTc: 486 Interpretive Statements SINUS TACHYCARDIA POSSIBLE ANTERIOR MYOCARDIAL INFARCTION , PROBABLY OLD [30 ms Q WAVE IN V3/V4, OR R < 0.2 mV IN V4] ABNORMAL RHYTHM ECG Compared to ECG 08/29/2021 13:12:44 Myocardial infarct finding now present T-wave abnormality no longer present Possible ischemia no longer present Electronically Signed On 08-29-2021 20:11:33 PROPERTY STAFF ACCOUNTANT by Krupa Yarbrough M.D. [email or web address]/[id number]
[2021-08-29 12:42] LABS: Troponin(5th) Baseline 1177 ng/L (0-10)
[2021-08-29 12:47] LABS: Alanine Aminotransferase 47 U/L (0-33); Albumin Level 3.4 g/dL (3.5-5.2); Alkaline Phosphatase 379 IU/L (35-105); Anion Gap 17.3 (5-19); Aspartate Amino Transferase 25 U/L (0-32); Blood Urea Nitrogen 42 mg/dL (8-23); Carbon Dioxide 23 mmol/L (22-29); Chloride 107 mmol/L (98-107); Globulin 2.1 g/dL (1.3-4.6); Glomerular Filtration Rate 20.1 mL/min (90-130); Glucose 239 mg/dL (65-115); Osmolality Calculated 314 mOsm/kg (285-295); Potassium 4.3 mmol/L (3.5-5.1); Sodium 143 mmol/L (136-145); Total Bilirubin 0.2 mg/dL (0.15-1.2); Total Protein 5.5 g/dL (6.6-8.7)
[2021-08-29 12:54] LABS: SARS Covid-2 Antigen Negative (Negative)
[2021-08-29 13:09] LABS: NT Pro B Type Natriuretic Pept 44910 pg/mL (0-125)
[2021-08-29] MEDS: heparin 5,000 unit/mL INJ 1 mL 5000 UNIT SUBCUT (13:10)
[2021-08-29] MEDS: aspirin 81 mg Chew Tablet 324 MG PO (13:10)
[2021-08-29] MEDS: heparin drip 25,000 UNIT/500 ML PREMIX 22.23 UNIT IV (14:05)
[2021-08-29 14:18] LABS: Troponin 5 2HR 1240 ng/L (0-10); Troponin 5 2HR Delta 63 ABS# (0-10)
--- NOTE | 2021-08-29 15:55 | P.HP_ITS ---
Providers/Chief Complaint Chief Complaint: N/V, SOB History of Present Illness Cony Temple is a 65 year old female With past medical history of insulin- dependent type 2 diabetes, chronic kidney disease, hypertension, recent NSTEMI, COPD, suspected gastroparesis from prior admission who presented to the hospital today with complaint of shortness of breath. She states that she was not really doing anything at the time and was resting on her chair when she developed shortness of breath. She does state that she has chronic lower extremity edema especially pedal edema. She was placed on a water pill at her last admission. She was also asked to follow-up with nephrology because she had a kidney injury at the previous visit. She states that she was unable to follow-up with her PCP or nephrology so far but ended up in the hospital. She denies having any chest pain. She does have shortness of breath on exertion and feels that she cannot get the air in. She also states when she lies down the shortness of breath is worse but when she sits up it gets better. She has not had chest pain at all. Denies abdominal pain denies back pain. Is currently wearing 2 L nasal cannula but not on any oxygen at home. ED course: Blood pressure 197/104, respiratory 24, pulse 106, temperature 97.8, saturating 96%. BNP 45,000, first troponin XI 71, second troponin elevated. Delta troponin 64. EKG did show ST depression V3 V4. She was started on heparin drip. Creatinine 2.4 today. CTA not done to rule out PE due to high creatinine. Cardiology was consulted. Dr. Gilmore will see the patient. Chart review does show that the previous admission he had pulmonary edema, elevated troponin, severe hyperkalemia, MYNOR, anion gap respiratory metabolic acidosis, chronic cholecystitis. Patient was discharged on Augmentin with close follow-up with general surgery as an outpatient for her chronic cholecystitis. Echocardiogram was done which did show diffuse hypokinesia of anteroseptal segment with grade 4 diastolic dysfunction. Patient was medically managed as she did refuse to have an angiogram since she had an MYNOR and she was high risk for contrast-induced nephropathy. For patient's MYNOR her creatinine was 3.2 on discharge. She was put on sodium bicarb tablets and to follow-up with nephrology as an outpatient. She was placed on Lasix 40 daily. Patient also refused to have a stress test at the previous visit. Review of Systems General: Reports: 10 or more systems reviewed and unremarkable except in HPI and below Medications/Allergies Home Medications Medication Instructions Recorded Confirmed Last Taken Type insulin aspart U-100 [Novolog See Rx Instructions .ROUTE .COMPLEX 08/21/2108/0908/29/21 08:30 History Flexpen U-100 Insulin] 10 units lorazepam 0.5 mg PO TID PRN 08/21/21 08/29/21 08/20/21 21:00 History metoclopramide HCl 10 mg PO .TID & AT BEDTIME 08/21/21 08/29/21 08/20/21 History pantoprazole 40 mg PO DAILY 08/21/21 08/29/21 08/20/21 History amoxicillin-pot clavulanate 1 tab PO BID 10 Days #20 tab 08/26/21 08/29/21 Unknown Rx [Augmentin] aspirin [Children's Aspirin] 81 mg PO DAILY 30 Days #30 tab 08/26/21 08/29/21 Unknown Rx atorvastatin 40 mg PO BEDTIME 30 Days #30 tab 08/26/21 08/29/21 Unknown Rx clopidogrel 75 mg PO DAILY 30 Days #30 tab 08/26/21 08/29/21 Unknown Rx furosemide [Lasix] 40 mg PO DAILY 30 Days #30 tab 08/26/21 08/29/21 Unknown Rx hydralazine 50 mg PO TID 30 Days #90 tab 08/26/21 08/29/21 Unknown Rx isosorbide mononitrate 30 mg PO BID 30 Days #60 tab 08/26/21 08/29/21 Unknown Rx metoprolol tartrate 50 mg PO BID@0900,2100 30 Days #60 08/26/21 08/29/21 Unknown Rx tab potassium chloride [Klor-Con 10] 10 meq PO DAILY 30 Days #30 tab 08/26/21 08/29/21 Unknown Rx sodium bicarbonate 650 mg PO TID 30 Days #90 tab 08/26/21 08/29/21 Unknown Rx insulin glargine [Lantus Solostar 8 unit SUBCUT Q12H 08/29/21 08/29/21 Unknown History U-100 Insulin] venlafaxine 75 mg PO DAILY 08/29/21 08/29/21 Unknown History Allergies Allergy/AdvReac Type Severity Reaction Status Date / Time azithromycin Allergy Unknown Verified 08/10/21 22:41 mycins Allergy Unknown Uncoded 08/10/21 22:41 PFSH Acute PFSH: Medical History Gastroparesis Hypertension Uncontrolled diabetes mellitus Vitals/I&O/Wt Last Vital Signs Temp 97.8 F 08/29/21 10:12 Pulse 101 H 08/29/21 11:30 Resp 14 08/29/21 11:30 BP 164/119 08/29/21 11:30 Pulse Ox 99 08/29/21 11:30 Weight last 48 hrs Weight 79.379 kg Physical Exam Narrative: EXAM NARRATIVE: General: Alert oriented x3, patient seen sitting up on edge of bed saturating 94% on 3L NC. HEENT: Normocephalic, atraumatic, EOMI, breathing comfortably but appears anxious. Cardio: Regular rate rhythm, normal S1-S2, no murmurs rubs gallops, JVD not elevated. Respiratory: Good bilateral air entry, no wheezes no rhonchi appreciated, generally clear to auscultation with very mild crackles at bases bilaterally. GI: Abdomen soft, nontender, nondistended, bowel sounds + Behavior: Appropriate and cooperative, but appears very anxious Extremities: 2+ pitting edema b/l LE, with 3+ pedal pitting edema Data : 08/29/21 11:42 08/29/21 11:42 A&P Assessment and plan (1) Uncontrolled diabetes mellitus: Status: Acute (2) Hypertension: Status: Acute (3) Acute renal failure superimposed on chronic kidney disease: Status: Acute Qualifiers: Acute renal failure type: unspecified (4) NSTEMI (non-ST elevated myocardial infarction): Status: Acute (5) Acute on chronic diastolic CHF (congestive heart failure): Status: Acute Additional A&P Information #Acute hypoxic respiratory failure 2/2 HF exacerbation #Acute on chronic diastolic HF #CKD, baseline Cr 2-3 range. #NSTEMI - Recent echo from previous admission shows septal hypokinesia - She refused stress test and angiogram as per prevoius discharge summary - PE not ruled out by CTA due to CKD and elevated Cr. Will check d-dimer and V/Q - BNP 57701 today, CXR shows b/l pleural effusions - Ordered lasix 80 x1 - Start lasix 40 IV daily. Will diurese patient. Right now patient cannot lay flat for angiogram. - Strict I/O - Pt probably needs angiogram, will conitnue heparin for 48 hours - Cardiology to see the patient in consultation. Dr. Gilmore notified by ER. - Will re-order echo (for worsening EF?) - Check b/l LE dopplers #DM - Continue on lantus 8 units BID - Moderate intensity sliding scale insulin #Hx of Gastroparesis - Conitnue reglan Full Code DVT PPX: on Heparin drip Attestations Medical Necessity Statement*: > 48 hour stay Coding Level of Care Code Acute Scouring Machine Tender for Chg Fwd Diagnoses Uncontrolled diabetes mellitus E11.65 Hypertension I10 Acute renal failure superimposed on chronic kidney disease N17.9; N18.9 Acute renal failure type: unspecified NSTEMI (non-ST elevated myocardial infarction) I21.4 Acute on chronic diastolic CHF (congestive heart failure) I50.33
--- NOTE | 2021-08-29 16:20 | ECG_ITS ---
[facility] Test Date: 2021-08-29 Pat Name: Cony Temple Department: Room: Gender: Female Territory Outside Sales Manager: : 1955 Requested By: José Miguel Cha Order Number: [id number] Reading MD: Krupa Yarbrough M.D. Measurements Intervals [place] Rate: 105 P: 69 WI: 147 QRS: -2 QRSD: 94 T: 42 QT: 326 QTc: 432 Interpretive Statements SINUS TACHYCARDIA ST DEVIATION AND MODERATE T-WAVE ABNORMALITY, CONSIDER LATERAL ISCHEMIA [-0.1+ mV T-WAVE IN I/aVL/V5/V6] Compared to ECG 08/29/2021 10:50:48 No significant changes Electronically Signed On 08-29-2021 20:10:41 CYBER INCIDENT RESPONDER by Krupa Yarbrough M.D. [email or web address]/store/[id number]
--- NOTE | 2021-08-29 17:54 | PC.NURSE ---
Spoke with Dr. Demarco on the telephone. Reported that sarah beth did not receive 80mg furosemide in the ER and that another round of furosemide is due at 1800. Order received to give 80mg IV furosemide now and start the 40 mg dose tomorrow. Hold isosorbide and hydralazine this evening. Please notifiy overnight hospitalist if patient becomes hypertensive over night.
--- NOTE | 2021-08-29 17:57 | PC.NURSE ---
Notified Dr. Demarco that patient has refused a burnham catheter at the prsent time. Dr. Demarco states to monitor strict I & O.
[2021-08-29] MEDS: ondansetron 2 mg/ML SDV 2 mL 4 MG IVP (18:12)
[2021-08-29] MEDS: FUROsemide 10 mg/mL SDV 4mL 80 MG IVP (18:13)
[2021-08-29 18:34] LABS: Partial Thromboplastin Time 64.5 SECONDS (23.9-36.7)
[2021-08-29 19:01] LABS: Troponin 5 6HR 1083 ng/L (0-10); Troponin 5 6HR Delta -94 ng/L (0-12)
[2021-08-29 19:13] LABS: Glucose Point of Care 235 mg/dL (70-110)
--- NOTE | 2021-08-29 19:31 | ECG_ITS ---
[facility] Test Date: 2021-08-29 Pat Name: Cony Temple Department: Room: 104 Gender: Female Winding Rack Operator: : 1955 Requested By: Dean Gilmore Order Number: [id number] Doug MD: Krupa Yarbrough M.D. Measurements Intervals [place] Rate: 101 P: 68 UT: 154 QRS: 0 QRSD: 97 T: 200 QT: 365 QTc: 474 Interpretive Statements SINUS TACHYCARDIA WITH OCCASIONAL VENTRICULAR PREMATURE COMPLEXES ST DEVIATION AND MODERATE T-WAVE ABNORMALITY, CONSIDER LATERAL ISCHEMIA [-0.1+ mV T-WAVE IN I/aVL/V5/V6] ST DEVIATION AND MODERATE T-WAVE ABNORMALITY, CONSIDER INFERIOR ISCHEMIA [-0.1+ mV T-WAVE IN II/aVF] Compared to ECG 08/29/2021 10:50:48 Ventricular premature complex(es) now present T-wave abnormality still present Possible ischemia still present Electronically Signed On 08-29-2021 20:04:14 FIRE EXTINGUISHER REPAIRER by Krupa Yarbrough M.D. [id number]
[2021-08-29 19:56] LABS: Glucose Point of Care 349 mg/dL (70-110)
[2021-08-29] MEDS: insulin lispro 100 unit/1 mL SUBCUT (20:29)
[2021-08-29] MEDS: metoclopramide 5 mg/mL SDV 2 mL 10 MG IVP (20:40)
[2021-08-29] MEDS: bumetanide 0.25 mg/mL SDV 10 mL 2 MG IVP (20:40)
[2021-08-29] MEDS: ipratropium-albuterol 3 mL Neb INHALATION (20:51)
[2021-08-29 20:57] LABS: D Dimer 1.17 ug/mIFEU (0-0.59)
--- NOTE | 2021-08-29 21:00 | PM.MISC ---
Miscellaneous Note Note: Patient was evaluated for dry heaves Patient was saturating well on 2 L nasal cannula Bilateral breath sounds with mild crackles at the bases No active chest No worsening of shortness of breath She seemed fatigued and lethargic EKG did not reveal ischemic or infarctive changes, Elevated troponin with acute on chronic kidney disease Plan Daughter updated Dr. Gilmore also notified Keep her n.p.o. For poor ejection fraction of gallbladder and dry heaves I have started her on antibiotics for gram-negative and anaerobic coverage We will give her 1 extra dose of Bumex 2 mg, patient is refusing placement of Dickson catheter, No active chest pain or shortness of breath, will monitor overnight Patient is stating that if angiogram is indicated she is okay and is aware that she might need hemodialysis for short-term in future, daughter also in agreement who is her DPOA Dr. Gilmore is planning to reevaluate her in the morning, no acute intervention indicated 1 dose of Reglan given I have requested venous Doppler, D-dimer is 1.1 Not a candidate of CTA chest at this point, currently on heparin drip
[2021-08-29 21:18] LABS: D Dimer 1.16 ug/mIFEU (0-0.59)
[2021-08-29] MEDS: atorvastatin 40 mg Tablet PO (21:19)
[2021-08-29] MEDS: hyDRALAzine 50 mg Tablet PO (21:19)
[2021-08-29] MEDS: sodium bicarbonate 650 mg Tablet PO (21:19)
--- NOTE | 2021-08-29 21:26 | PC.NURSE ---
Upon initial assessment of patient, patient c/o nausea and dry heaves and shortness of breath. Patient on 2 L NC with oxygen saturation of 96 percent. Patient denies any pain. EKG ordered. Reglan ordered from Dr. Rizzo. Daughter, Abril calls and states, you guys need to do something for my mother, order more tests or something. If anything happens to my mother, there is going to be big problems. She is all I have. I will transfer her to another hospital if I have to. They sent her home like this a few days ago and she came back with the same problems. On my way to patient's room, patient's daughter called again and spoke to another nurse. She stated to this nurse, Elisha told me she gave my mother insulin and my mom says she has not had insulin. I need to talk to Elisha right now. This nurse educated patient's mother that I was on my way to the patient's room to assist the patient. Mother states to other nurse Well, I need to talk to her. When I returned from patient's room, I called patient's mother back and educated her that I told her I was getting ready to give her insulin, not that I had already given it and apologized for the misunderstanding. Dr. Rizzo came to patient's room. Dr. Rizzo spoke with patient at bedside and spoke with daughter on the telephone about risks and contraindications of doing an angiogram at this time. Patient currently has Heparin drip running. IV Bumex ordered. Bipap ordered. IV antibiotics ordered. Burnham ordered. Patient refusing burnham. Dr. Rizzo aware. Ordered to not put Bipap on patient until patient's dry heaves/nausea improves.
--- NOTE | 2021-08-29 22:48 | P.CONIM_ITS ---
Providers/Reason For Consult Consulting Physician/Specialty*: Dean Gilmore MD/Cardiology Reason for Consult*: NSTEMI Requesting Physician: Dr Gonsalez Attending Physician: Pattie Demarco MD History of Present Illness History of Present Illness Cony Temple is a 65 year old female with past medical history of insulin- dependent type 2 diabetes, chronic kidney disease, hypertension, COPD who was recently discharged from hospital when she had CHF exacerbation and non-ST elevation DC. However her creatinine was high and per prior documentation she refused staying in the hospital for stress test or getting coronary angiogram. She presented with shortness of breath. Her NT proBNP is elevated. Her troponins were more than 1100 however on recent admission they were at the same level. They have not trended up significantly at 6 hours. She denies any chest pain. Has lower extremity edema. Patient also was found to have gastroparesis and continues having nausea. EKG performed in the ER showed sinus tachycardia with a heart rate of [address]-T wave changes. Review of Systems Const: Denies: fever(s) or chills ENMT: Denies: epistaxis Card: Reports: edema and orthopnea; Denies: chest pain, palpitations, lightheadedness or syncope Resp: Reports: dyspnea; Denies: non-productive cough or wheezing GI: Denies: nausea, vomiting or hematochezia : Denies: hematuria Musc: Denies: neck pain Neuro: Denies: headache(s) Los/Lymph: Denies: petechiae or purpura Meds/Allergies Home Medications and Allergies Home Medications Medication Instructions Recorded Confirmed Last Taken Type insulin aspart U-100 [Novolog See Rx Instructions .ROUTE .COMPLEX 08/21/21 08/29/21 08/29/21 08:30 History Flexpen U-100 Insulin] 10 units lorazepam 0.5 mg PO TID PRN 08/21/21 08/29/21 08/20/21 21:00 History metoclopramide HCl 10 mg PO .TID & AT BEDTIME 08/21/21 08/29/21 08/20/21 History pantoprazole 40 mg PO DAILY 08/21/21 08/29/21 08/20/21 History amoxicillin-pot clavulanate 1 tab PO BID 10 Days #20 tab 08/26/21 08/29/21 Unknown Rx [Augmentin] aspirin [Children's Aspirin] 81 mg PO DAILY 30 Days #30 tab 08/26/21 08/29/21 Unknown Rx atorvastatin 40 mg PO BEDTIME 30 Days #30 tab 08/26/21 08/29/21 Unknown Rx clopidogrel 75 mg PO DAILY 30 Days #30 tab 08/26/21 08/29/21 Unknown Rx furosemide [Lasix] 40 mg PO DAILY 30 Days #30 tab 08/26/21 08/29/21 Unknown Rx hydralazine 50 mg PO TID 30 Days #90 tab 08/26/21 08/29/21 Unknown Rx isosorbide mononitrate 30 mg PO BID 30 Days #60 tab 08/26/21 08/29/21 Unknown Rx metoprolol tartrate 50 mg PO BID@0900,2100 30 Days #60 08/26/21 08/29/21 Unknown Rx tab potassium chloride [Klor-Con 10] 10 meq PO DAILY 30 Days #30 tab 08/26/21 08/29/21 Unknown Rx sodium bicarbonate 650 mg PO TID 30 Days #90 tab 08/26/21 08/29/21 Unknown Rx insulin glargine [Lantus Solostar 8 unit SUBCUT Q12H 08/29/21 08/29/21 Unknown History U-100 Insulin] venlafaxine 75 mg PO DAILY 08/29/21 08/29/21 Unknown History Allergies Allergy/AdvReac Type Severity Reaction Status Date / Time azithromycin Allergy Unknown Verified 08/10/21 22:41 mycins Allergy Unknown Uncoded 08/10/21 22:41 Current Medications Current Medications Generic Name Dose Route Start Last Admin Trade Name Freq PRN Reason Stop Dose Admin Albuterol/Ipratropium 3 ml 08/29/21 20:38 08/29/21 20:51 Ipratropium-Albuterol 3 Ml Neb INHALATION 3 ml Q4H.RESPIRATORY PRN Administration AIR HUNGER Atorvastatin Calcium 40 mg 08/29/21 21:00 08/29/21 21:19 Atorvastatin 40 Mg Tablet PO 40 mg BEDTIME ALYSSA Administration Hydralazine HCl 50 mg 08/29/21 21:00 08/29/21 21:19 Hydralazine 50 Mg Tablet PO 50 mg TID ALYSSA Administration Heparin Sodium/Sodium Chloride 25,000 unit in 500 mls @ 0 mls/hr 08/29/21 13:30 08/29/21 14:05 Heparin Drip IV 14 unit/kg/hr .Q0M ALYSSA 22.23 mls/hr Administration Protocol Per Protocol Insulin Human Lispro 0 unit 08/29/21 21:00 08/29/21 20:29 Insulin Lispro 100 Unit/1 Ml SUBCUT 12 unit WM&BEDTIME ALYSSA Administration Protocol Isosorbide Mononitrate 30 mg 08/29/21 18:00 08/29/21 17:54 Isosorbide Mononitrate Er 30 Mg Tablet PO Not Given BID [facility] Ondansetron HCl 4 mg 08/29/21 16:00 08/29/21 18:12 Ondansetron 2 Mg/Ml Sdv 2 Ml IVP 4 mg Q6H PRN Administration NAUSEA AND VOMITING Sodium Bicarbonate 650 mg 08/29/21 21:00 08/29/21 21:19 Sodium Bicarbonate 650 Mg Tablet PO 650 mg TID ALYSSA Administration PFSH Acute PFSH: Medical History Gastroparesis Hypertension Uncontrolled diabetes mellitus Vitals/I&O/Wt Last Vital Signs Temp 98 F 08/29/21 19:13 Pulse 110 H 08/29/21 20:54 Resp 21 H 08/29/21 20:51 BP 144/75 08/29/21 21:17 Pulse Ox 96 08/29/21 20:51 Weight last 48 hrs Weight 175 lb Physical Exam Narrative: EXAM NARRATIVE: GENERAL: Patient is alert, and oriented. [] NECK: No jugular vein distension. [] HEENT: No cyanosis. No icterus. No pallor. [] HEART: Tachycardic, regular S1 and S2. No murmur, rub or gallop. [] LUNGS: Mild crackles ABDOMEN: Soft CENTRAL NERVOUS SYSTEM: Grossly nonfocal. [] EXTREMITIES: Lower extremities with 2+ edema bilaterally. A&P Assessment and plan (1) Troponin level elevated: Status: Acute (2) CKD (chronic kidney disease): Status: Acute Qualifiers: Chronic kidney disease stage: unspecified stage Qualified Code(s): N18.9 - Chronic kidney disease, unspecified (3) Acute on chronic diastolic CHF (congestive heart failure): Status: Acute (4) Hypertension: Status: Acute (5) Uncontrolled diabetes mellitus: Status: Acute Patient had a recent NSTEMI. At that time medical management was opted with plan for outpatient stress test. She has come back with congestive heart failure features and shortness of breath. Her troponins have not trended up and are almost at the same level as they were at time of discharge. Continue aspirin and Plavix. Start heparin drip. Order limited echocardiogram. On last admission her LVEF was 50%. We will compare with that. Continue diuretics. Per prior documentation patient had refused cardiac cath secondary to risk for NIURKA and outpatient stress test was planned. Her creatinine today is better than on last admission. We will have discussion with the family that proceeding with coronary angiogram may result in permanent dialysis. In addition she is not able to lay down flat at this time because of breathing. Invasive procedures will be discussed once she is more stable as she is having no active chest pain, no acute ST changes and troponins are not trending up. Given her sinus tachycardia, would be reasonable to rule out PE with VQ scan because of her kidney function. Thank you for involving us with care of this patient. We will continue to follow. Please call with questions. Coding Level of Care Code Acute Route Deliverer for Vikas Osorio Diagnoses Troponin level elevated R77.8 CKD (chronic kidney disease) N18.9 Chronic kidney disease stage: unspecified stage Acute on chronic diastolic CHF (congestive heart failure) I50.33 Hypertension I10 Uncontrolled diabetes mellitus E11.65
--- NOTE | 2021-08-29 22:51 | PC.NURSE ---
Dr. Gilmore in to see patient. Ordered to keep patient NPO. Patient continually asks Dr. Rizzo and Dr. Gilmore, I just want to know what is wrong. Patient has been educated multiple times. Patient is unable to lay flat due to shortness of breath. Patient has dry heaves and nausea. Patient still denies pain.
--- NOTE | 2021-08-29 23:23 | PC.NURSE ---
Addendum entered by Elisha Kirby RN 08/29/21 23:25: Right AC, not left AC. Original Note: 22 gauge IV started in left AC after multiple attempts from [address] Rizzo notified that patient has only had 50 ml urine output since receiving IV Bumex. Patient states that she does not feel like she needs to go.
[2021-08-29] MEDS: metroNIDAZOLE IV 500 MG/100 ML PREMIX 100 MG IV (23:34)
[2021-08-30] VITALS (79 sets, daily range): BP systolic 92–139; BP diastolic 56–79; PULSE 82–115; RESP 14–29; TEMP 36.8–37.3; O2SAT 91–100
[2021-08-30] MEDS: cefepime 2,000 MG in sodium chloride 0.9% (plus) 50 ML 100 MG IV (00:19)
--- NOTE | 2021-08-30 00:39 | PC.NURSE ---
Patient unable to lay flat. Recliner provided for patient. Patient assisted to recliner.
[2021-08-30 02:24] LABS: Partial Thromboplastin Time 227.4 SECONDS (23.9-36.7)
--- NOTE | 2021-08-30 02:32 | PC.NURSE ---
Addendum entered by Elisha Kirby RN 08/30/21 02:34: 12 units, not ml/hr. Ordered to go down from 14 to 12. Original Note: Dr. Rizzo notified of critical PTT on Heparin drip. Ordered to shut off and restart at 12 ml/hr in 2 hours.
--- NOTE | 2021-08-30 03:34 | PC.NURSE ---
Dr. Rizzo notified of patient only having 100 ml of urine output since IV Bumex.
--- NOTE | 2021-08-30 03:37 | PC.NURSE ---
Patient has been assisted to BSC x2 throughout shift.
--- NOTE | 2021-08-30 04:46 | PC.NURSE ---
Patient has been unable to lay flat and has been sitting in recliner. Patient has had dry heaves that come and go. Unable to place Bipap on patient. Oxygen saturation of 97 percent on 2 L NC.
--- NOTE | 2021-08-30 05:57 | PC.NURSE ---
Continuous rounding on patient throughout shift. Patient c/o nausea that comes and goes with no relief from Zofran or Reglan.
[2021-08-30 06:01] LABS: Basophils % 0.3 %; Hematocrit 31.8 % (37.0-47.0); Hemoglobin 9.2 g/dL (11.5-15.3); Lymphocytes # 0.7 10^3/uL (0.8-4.8); Lymphocytes % 5.6 %; Mean Corpuscular HGB Conc 28.9 g/dL (30.0-36.0); Mean Corpuscular Hemoglobin 28.7 pg (28.0-34.0); Mean Corpuscular Volume 99.1 fl (81-99); Mean Platelet Volume 11.4 fL (7.4-10.4); Monocytes # 0.9 10^3/uL (0.2-0.9); Monocytes % 6.9 %; Neutrophils % 86.4 %; Nucleated Red Blood Cells % 0 %; Platelet Count 456 10^3/cmm (130-400); Red Blood Count 3.21 10^6/uL (4.1-5.3); Red Cell Distribution Width 14.1 % (12.1-15.1); White Blood Count 12.6 10^3/uL (4.0-10.0)
[2021-08-30 06:15] LABS: INR 1.11 (0.8-1.2)
--- NOTE | 2021-08-30 06:30 | XRR_ITS ---
PROCEDURE INFORMATION: Exam: XR Chest Exam date and time: 08/30/2021 6:30 AM Age: 65 years old Clinical indication: Shortness of breath TECHNIQUE: Imaging protocol: XR of the chest. Views: 1 view. COMPARISON: CR XR chest 1V portable [id number] 08/29/2021 10:28 AM FINDINGS: Lungs: Bilateral lower lobe airspace opacities and pleural effusions, no change. Findings may be seen with pneumonia. Pleural spaces: See Lungs finding. Heart/Mediastinum: Cardiomediastinal silhouette is partially obscured. Bones/joints: No acute fracture. XR/XR chest 1V portable [id number] IMPRESSION: Bilateral lower lobe airspace opacities and pleural effusions, no change. Findings may be seen with pneumonia. Radiation Dose CTDIVOL = (mGy): DLP = (mGy-cm)
--- NOTE | 2021-08-30 06:31 | PC.NURSE ---
Patient stated that she all of the sudden became short of breath. Dr. Rizzo in room to see patient. Patient's oxygen saturation 96 percent on 2 L NC. Respiratory rate 30. Ordered to place patient on Bipap and get chest x-ray. Patient has had dry heaves on and off, but has not vomited.
[2021-08-30 06:34] LABS: Glucose Point of Care 487 mg/dL (70-110)
[2021-08-30 06:34] LABS: Alanine Aminotransferase 38 U/L (0-33); Albumin Level 3.2 g/dL (3.5-5.2); Alkaline Phosphatase 323 IU/L (35-105); Anion Gap 31.6 (5-19); Aspartate Amino Transferase 31 U/L (0-32); Blood Urea Nitrogen 48 mg/dL (8-23); Calcium 8.4 mg/dL (8.5-10.5); Carbon Dioxide 13 mmol/L (22-29); Chloride 98 mmol/L (98-107); Globulin 2.5 g/dL (1.3-4.6); Glomerular Filtration Rate 13.9 mL/min (90-130); Glucose 488 mg/dL (65-115); Magnesium 2.1 mg/dL (1.7-2.3); Osmolality Calculated 318 mOsm/kg (285-295); Potassium 5.6 mmol/L (3.5-5.1); Sodium 137 mmol/L (136-145); Total Bilirubin 0.2 mg/dL (0.15-1.2); Total Protein 5.7 g/dL (6.6-8.7)
[2021-08-30] MEDS: LORazepam 0.5 mg Tablet PO (06:47)
--- NOTE | 2021-08-30 07:41 | ECG_ITS ---
[facility] Test Date: 2021-08-30 Pat Name: Cony Temple Department: Room: 104 Gender: Female Programmer Developer: : [id number] Requested By: Pattie Demarco Order Number: [id number] Doug MD: Dean Gilmore M.D. Measurements Intervals [place] Rate: 105 P: 0 VA: 271 QRS: 3 QRSD: 110 T: 120 QT: 373 QTc: 495 Interpretive Statements SINUS TACHYCARDIA WITH FIRST DEGREE AV BLOCK POSSIBLE ANTERIOR MYOCARDIAL INFARCTION , OF INDETERMINATE AGE [30 ms Q WAVE IN V3/V4, OR R < 0.2 mV IN V4] MODERATE T-WAVE ABNORMALITY, CONSIDER LATERAL ISCHEMIA [-0.1+ mV T WAVE IN I/aVL/V5/V6] Compared to ECG 08/29/2021 20:10:16 Myocardial infarct finding now present Possible ischemia now present T-wave abnormality still present Electronically Signed On 08-31-2021 17:40:47 RETAIL PROPERTY MANAGER by Dean Gilmore M.D. [email or web address]
[2021-08-30] MEDS: insulin lispro 100 unit/1 mL SUBCUT (07:43)
[2021-08-30 07:45] LABS: Glucose Point of Care 514 mg/dL (70-110)
--- NOTE | 2021-08-30 07:48 | PC.NURSE ---
called to bedside by ancillary staff patient slumped back in chair eyes fixed and only noise response from patient unable to follow commands or make eye contact Rapid response called Dr Gilmore to bedside instructions received to obtain Full ABG Blood glucose obtained and insulin given per sliding scale Dr ralph notified of events and to bedside EKG obtained
[2021-08-30 07:50] LABS: ABG PCO2 27.6 mmHg (35-45); Arterial Blood Gas Hematocrit 28.5 % (37-47); Base Excess ABG -18.9 mmol/L (-2.0-2.0); Blood Gas Allen Test Pos; Blood Gas Sample Type Arterial; Carboxyhemoglobin 0.6 %THgb (0.4-20.1); HCO3 ABG 8.9 mmol/L (22-26); Ionized Calcium Level - ABG 1.2 mmol/L (1.1-1.4); Methemoglobin 1.2 % (0.4-1.5); Oxygen Saturation ABG 94.8; PO2 ABG 89.3 mmHg (80.0-100.0); Potassium Level - ABG 6.1 mmol/L (3.5-5.0); Total Hemoglobin 9.3 g/dL (12-16)
[2021-08-30 07:51] LABS: Alveolar-Arterial Oxygen Gradi 11.7 mmHg (5-10); Blood Gas Operator Identificat MONRO; Blood Gas Sample Site Brachial, left; Oxygen Device BIPAP
[2021-08-30 07:52] LABS: ABG PH Result 7.12 (7.35-7.45)
--- NOTE | 2021-08-30 08:09 | PC.NURSE ---
at walking rounds (approx 0710)..pt was awake..sitting in chair.requested to be switched from bipap to nc.nc placed on at 2l per min.o2 sat at 92%.pt was talking...denied pain...and had no needs at all.at 0735 rt called for nurse and called rapid response.pt was unresponsive..was breathing..hr 100 and o2 sat low 90's.dr lopez immediately at bedside..then dr nava and dr ralph.abg's obtained.cxr taken prior to episode.blood sugar 514.16 units insulin given sq.. 1 amp nahco3 given ivp.pt became responsive and answered questions.pt taken to icu by bed at 0800..report given.daughter notified.
[2021-08-30] MEDS: rocuronium 10 mg/mL INJ 5mL 50 MG IVP (08:24)
--- NOTE | 2021-08-30 08:41 | PM.PN ---
Subjective Subjective: Interval history: Seen this morning. [facility] morning events noted. Patient was found unresponsive in her room while on BiPAP. Rapid response was run by Dr. Layne and Dr. Gilmore. When I arrived in the room patient was being wheeled to go to the ICU. Blood sugar was found to be 500. ABG showed pH 7.1, potassium 6.1. She was tachypneic but responsive. She was taken to ICU and intubated for impending respiratory failure. She did follow commands and was able to squeeze her fingers and open her eyes. Central line was placed in right femoral region by Dr. Layne. She was intubated and sedated with fentanyl and Versed. Nephrology was consulted, pulmonary critical care was consulted for vent management. Cardiology already on board. I discussed her case in detail with her daughter and cardiology also spoke to her. The daughter had concerns regarding the patient's discharge from previous visit. She stated that patient and herself did not decline to have stress test or angiogram. She is not sure why that is in the documentation. Daughter was quite tearful and genuinely worried regarding her mom. She also requested to come into the hospital to see her. Daughter also stated that prior to hospital visit patient was having nausea and was severely ill. However at time of admission patient did not mention nausea or vomiting either to the ER doctor or myself. Patient's main complaint was shortness of breath. Daughter also requested us to transfer the patient to a different hospital as she was not happy with the care here. Patient was unstable at the time and discussion was done to stabilize the patient and then revisit this idea of transfer. I did speak to nephrology and plan was to place dialysis catheter and potentially dialyze patient towards the afternoon if labs did not improve. Overnight patient put out 200 cc of urine. Additionally she declined to have Dickson catheter at admission and also again last night. This morning prior to rapid response being called echocardiogram was to be done along with venous Dopplers and she was sitting up in a recliner as per nursing staff. Patient declined to have echo and venous Dopplers test completed. Vitals/I&O/Wt Last Vital Signs Temp 98.3 F 08/30/21 03:55 Pulse 115 H 08/30/21 06:48 Resp 18 08/30/21 03:55 BP 126/79 08/30/21 03:55 Pulse Ox 97 08/30/21 06:48 08/29/21 08/30/21 08/30/21 22:59 06:59 14:59 Intake Total 627.504 / 627.504 Output Total 100 / 100 100 / 200 Balance -100 / -100 527.504 / 427.504 Weight last 48 hrs Weight 79.379 kg Physical Exam Narrative: EXAM NARRATIVE: General: Intubated sedated HEENT: Normocephalic, atraumatic, breathing comfortably on the ventilator. Cardio: Regular rate rhythm, normal S1-S2, Respiratory: Transmitted breath sounds, no gross wheezes no rhonchi appreciated, generally clear to auscultation with mild crackles at bases bilaterally. GI: Abdomen soft, nontender, bowel sounds + Extremities: 2+ pitting edema b/l LE, lower extremity edema does seem slightly improved compared to admission when I saw her in the ER. Data : 08/30/21 12:04 08/30/21 14:45 A&P Assessment and plan (1) Uncontrolled diabetes mellitus: Status: Acute (2) Hypertension: Status: Acute (3) Acute renal failure superimposed on chronic kidney disease: Status: Acute Qualifiers: Acute renal failure type: unspecified (4) NSTEMI (non-ST elevated myocardial infarction): Status: Acute (5) Acute on chronic diastolic CHF (congestive heart failure): Status: Acute Additional A&P Information #Vent dependent acute hypoxic respiratory failure #Acute renal failure #Severe metabolic acidosis secondary to above, DKA, uremia? #Diabetic ketoacidosis #Acute on chronic diastolic HF #Chronic kidney disease, baseline creatinine 2-3 range. Creatinine up to 3.7 today. #Recent NSTEMI #Elevated D-dimer, pulmonary embolism not ruled out #Elevated lactic acid #Hyperkalemia - Recent echo from previous admission shows septal hypokinesia - She refused stress test and angiogram as per prevoius discharge summary - PE not ruled out by CTA due to CKD and elevated Cr. D-dimer high at 1.1. Unable to check VQ scan since patient is now intubated and sedated. Due to renal failure and high risk of worsening kidney function due to contrast-induced nephropathy we will hold off on doing CTA at this time. - BNP 35852 today, CXR from admission shows b/l pleural effusions -Patient received Lasix 80x1 at admission. -Place Dickson catheter, vent management by pulmonary critical care ?Cardiology on board. Echocardiogram and venous Dopplers pending. - Strict I/O -Continue heparin drip for now as per cardiology recommendations. aPTT high. Will titrate per protocol. -Central line placed right femoral region, dialysis catheter placed left femoral region by Dr. Layne. ?Nephrology on board and following. Potential dialysis today depending on further labs. -Recheck blood gas and CMP in afternoon. -Continue bicarbonate drip, insulin drip as per nephro recommendations. -We will check urinalysis, urine culture, blood cultures, MRSA nares. ?Covid PCR pending, Covid rapid antigen test negative. -We will check CT head #DM -Management as per above. #Hx of Gastroparesis -On Reglan at home. Full Code DVT PPX: on Heparin drip Daughter updated over the phone by myself x2, cardiology as well. Will continue to update her as management evolves. She intially requested to transfer patient to a different facility but later did say that we can wait for afternoon labs and see how patient does and then decide. I will be more than happy to transfer patient to different hospital as per family request if they decide to go in this direction. Attestations Medical Necessity Statement*: Requires ICU level care for next 48 to 72 hours. Coding Level of Care Code Acute Digital Strategy Manager for Vikas Osorio Diagnoses Uncontrolled diabetes mellitus E11.65 Hypertension I10 Acute renal failure superimposed on chronic kidney disease N17.9; N18.9 Acute renal failure type: unspecified NSTEMI (non-ST elevated myocardial infarction) I21.4 Acute on chronic diastolic CHF (congestive heart failure) I50.33
--- NOTE | 2021-08-30 08:50 | XRR_ITS ---
PROCEDURE INFORMATION: Exam: XR Chest Exam date and time: 08/30/2021 8:50 AM Age: 65 years old Clinical indication: Device placement; Ett placement (vent status) TECHNIQUE: Imaging protocol: XR of the chest. Views: 1 view. COMPARISON: CR XR chest 1V portable [id number] 08/30/2021 6:38 AM FINDINGS: Tubes, catheters and devices: Endotracheal tube terminates 4.0 cm above the joan. Feeding tube courses into the gastric body with distal tip not visualized. Lungs: Interstitial prominence and basilar airspace disease. Pleural spaces: Bilateral pleural effusions. Heart/Mediastinum: No cardiomegaly. Bones/joints: Osteopenia. XR/XR chest 1V portable [id number] IMPRESSION: 1. Endotracheal tube terminates 4.0 cm above the joan. Feeding tube courses into the gastric body with distal tip not visualized. 2. Interstitial prominence and basilar airspace /pleural disease. Radiation Dose CTDIVOL = (mGy): DLP = (mGy-cm)
[2021-08-30 10:27] LABS: Lactate (Lactic Acid level) 3.7 mmol/L (0.5-2.2)
[2021-08-30] MEDS: sodium bicarbonate 50 MEQ in sodium chloride 0.45% 1,000 ML 100 MEQ IV (10:27)
[2021-08-30 10:33] LABS: Ketone (Acetest) Serum Positive (Negative)
[2021-08-30 10:42] LABS: ABG PCO2 33.6 mmHg (35-45); ABG PH Result 7.24 (7.35-7.45); Arterial Blood Gas Hematocrit 24.5 % (37-47); Base Excess ABG -12.1 mmol/L (-2.0-2.0); Blood Gas Allen Test Pos; Blood Gas Operator Identificat CAK; Blood Gas Sample Site Brachial, left; Blood Gas Sample Type Arterial; Blood Gas Tidal Volume 0.35; Carboxyhemoglobin 0.6 %THgb (0.4-20.1); HCO3 ABG 14.3 mmol/L (22-26); HGB O2 Sat 98.1 % (95-100); Ionized Calcium Level - ABG 1.2 mmol/L (1.1-1.4); Methemoglobin 0.9 % (0.4-1.5); Oxygen Device VENT; Oxygen Saturation ABG 99.6; Potassium Level - ABG 4.9 mmol/L (3.5-5.0)
--- NOTE | 2021-08-30 10:43 | USCV_ITS ---
Cony Temple Age: 65 Gender: F : 1955 Exam Date: 08/30/2021 12:29 Ordering Phys: Pattie Demarco MD Technologist: Odalys Richardson [place] [facility] [place]: B[place] [id number] BP: 115 / 67 HR: 89 Rhythm: Sinus Technical Quality: Adequate MEASUREMENTS (Male / Female) Normal Values 2D ECHO LV Diastolic Diameter PLAX 3.8 cm 4.2 - 5.9 / 3.9 - 5.3 cm LV Systolic Diameter PLAX 3.2 cm IVS Diastolic Thickness 1.6 cm 0.6 - 1.0 / 0.6 - 0.9 cm IVS Systolic Thickness 1.8 cm LVPW Diastolic Thickness 1.3 cm 0.6 - 1.0 / 0.6 - 0.9 cm LVPW Systolic Thickness 1.3 cm LVOT Diameter 2.0 cm LV Ejection Fraction 2D Teich 54.3 % LV Ejection Fraction MOD 2C 45.6 % LV Ejection Fraction 2C AL 45.2 % LA Diameter 2.8 cm Aorta at Sinotubular Diameter 2.3 cm M-MODE Aortic Annulus Diameter 2.6 cm LA Ao Ratio MM 1.1 MV E Point Septal Separation 0.9 cm FINDINGS Left Ventricle Right Ventricle Right Atrium Left Atrium Mitral Valve Aortic Valve Tricuspid Valve Pulmonic Valve Pericardium Aorta CONCLUSIONS This is a limited echocardiogram performed to assess LV systolic function. LV systolic function is mildly reduced with EF of 45 to 50%. Mild global hypokinesis is seen. Prior echocardiogram from 08/25/2021, LV systolic function has reduced slightly Dean Gilmore MD (Electronically Signed) Final Date: 31 August 2021 08:43 S
--- NOTE | 2021-08-30 10:45 | USCV_ITS ---
Maverick Cony Age: 65 Gender: F : 1955 Exam Date: 08/30/2021 12:07 Ordering Phys: Pattie Demarco MD Technologist: SYBIL Exam Location: [facility] [place] Indication: R/O DVT HISTORY: Lower extremity edema. PROCEDURES: Venous duplex imaging was performed in bilateral lower extremities. The following venous structures were evaluated: common femoral vein, profunda vein, proximal portion of the greater saphenous vein, superficial femoral vein, and the popliteal vein. In addition, the posterior tibial and peroneal trunk were evaluated. FINDINGS: Normal 2-D Doppler and augmentation and compressibility throughout the lower extremity venous structures. Additional imaging through the proximal calf veins also reveals no thrombus. Limited evaluation of the greater saphenous vein is patent with no thrombus. Mild bilateral subcutaneous edema. CONCLUSIONS No DVT bilateral lower extremities. Dr. Agata Alexander DO (Electronically Signed) Final Date: 30 August 2021 13:47 S
[2021-08-30] MEDS: insulin regular-human 250 UNIT in sodium chloride 0.9% 250 ML 12.83 UNIT IV (10:51)
[2021-08-30 11:08] LABS: Anion Gap 33.4 (5-19); Blood Urea Nitrogen 53 mg/dL (8-23); Calcium 7.9 mg/dL (8.5-10.5); Carbon Dioxide 12 mmol/L (22-29); Chloride 98 mmol/L (98-107); Glomerular Filtration Rate 12.2 mL/min (90-130); Osmolality Calculated 324 mOsm/kg (285-295); Potassium 5.4 mmol/L (3.5-5.1); Sodium 138 mmol/L (136-145)
[2021-08-30 11:15] LABS: Partial Thromboplastin Time 166.5 SECONDS (23.9-36.7)
[2021-08-30 11:22] LABS: Glucose 528 mg/dL (65-115)
[2021-08-30] MEDS: ipratropium-albuterol 3 mL Neb INHALATION (11:30)
[2021-08-30 11:48] LABS: Glucose Point of Care 418 mg/dL (70-110)
--- NOTE | 2021-08-30 12:10 | PM.CONSULT ---
Providers/Reason For Consult Consulting Physician/Specialty*: Nephro Reason for Consult*: Eval for Renal Failure Attending Physician: Pattie Demarco MD History of Present Illness History of Present Illness I am seeing Ms. Temple again for repeat consultation. She was discharged on 08/26, I did see her on the day of her discharge. She was readmitted yesterday through the emergency room with increasing shortness of breath and subsequently deteriorated overnight requiring intubation this morning. Blood gas demonstrates that she has significant mixed metabolic and respiratory acidosis as well as hypoglycemia. During her recent hospitalization, we were consulted for acute on chronic kidney disease, her discharge serum creatinine was 3.2 mg/dL. She was noted to have a non-STEMI, cardiology followed for this with a plan for medical management. Following intubation, repeat blood gas returned with pH 7.24, PCO2 33.6 and bicarb 14.3. Potassium on repeat check came down to 5.4, bicarb still down to 12, anion gap up at 33.4 and creatinine has up to 3.7 with a lactic acid level of 3.7 as well. Urine output only recorded at 200 mL so far. Hemodynamically she is stable with blood pressure 133/76 and pulse 110. Review of Systems General: Reports: ROS unobtainable due to mental status Meds/Allergies Home Medications and Allergies Home Medications Medication Instructions Recorded Confirmed Last Taken Type insulin aspart U-100 [Novolog See Rx Instructions .ROUTE .COMPLEX 08/21/21 08/29/21 08/29/21 08:30 History Flexpen U-100 Insulin] 10 units lorazepam 0.5 mg PO TID PRN 08/21/21 08/29/21 08/20/21 21:00 History metoclopramide HCl 10 mg PO .TID & AT BEDTIME 08/21/21 08/29/21 08/20/21 History pantoprazole 40 mg PO DAILY 08/21/21 08/29/21 08/20/21 History amoxicillin-pot clavulanate 1 tab PO BID 10 Days #20 tab 08/26/21 08/29/21 Unknown Rx [Augmentin] aspirin [Children's Aspirin] 81 mg PO DAILY 30 Days #30 tab 08/26/21 08/29/21 Unknown Rx atorvastatin 40 mg PO BEDTIME 30 Days #30 tab 08/26/21 08/29/21 Unknown Rx clopidogrel 75 mg PO DAILY 30 Days #30 tab 08/26/21 08/29/21 Unknown Rx furosemide [Lasix] 40 mg PO DAILY 30 Days #30 tab 08/26/21 08/29/21 Unknown Rx hydralazine 50 mg PO TID 30 Days #90 tab 08/26/21 08/29/21 Unknown Rx isosorbide mononitrate 30 mg PO BID 30 Days #60 tab 08/26/21 08/29/21 Unknown Rx metoprolol tartrate 50 mg PO BID@0900,2100 30 Days #60 08/26/21 08/29/21 Unknown Rx tab potassium chloride [Klor-Con 10] 10 meq PO DAILY 30 Days #30 tab 08/26/21 08/29/21 Unknown Rx sodium bicarbonate 650 mg PO TID 30 Days #90 tab 08/26/21 08/29/21 Unknown Rx insulin glargine [Lantus Solostar 8 unit SUBCUT Q12H 08/29/21 08/29/21 Unknown History U-100 Insulin] venlafaxine 75 mg PO DAILY 08/29/21 08/29/21 Unknown History Allergies Allergy/AdvReac Type Severity Reaction Status Date / Time azithromycin Allergy Unknown Verified 08/10/21 22:41 mycins Allergy Unknown Uncoded 08/10/21 22:41 Current Medications Current Medications Generic Name Dose Route Start Last Admin Trade Name Freq PRN Reason Stop Dose Admin Albuterol/Ipratropium 3 ml 08/29/21 20:38 08/30/21 11:30 Ipratropium-Albuterol 3 Ml Neb INHALATION 3 ml Q4H.RESPIRATORY PRN Administration [employer] HUNGER Atorvastatin Calcium 40 mg 08/29/21 21:00 08/29/21 21:19 Atorvastatin 40 Mg Tablet PO 40 mg BEDTIME ALYSSA Administration Hydralazine HCl 50 mg 08/29/21 21:00 08/29/21 21:19 Hydralazine 50 Mg Tablet PO 50 mg TID ALYSSA Administration Heparin Sodium/Sodium Chloride 25,000 unit in 500 mls @ 0 mls/hr 08/29/21 13:30 08/30/21 04:43 Heparin Drip IV 12 unit/kg/hr .Q0M ALYSSA 19.05 mls/hr Titration Protocol Per Protocol Metronidazole 500 mg in 100 mls @ 100 mls/hr 08/29/21 21:00 08/30/21 00:20 Flagyl Iv IV Infused Q8H ALYSSA Infusion Protocol Sodium Bicarbonate 50 meq/ 1,050 mls @ 100 mls/hr 08/30/21 09:15 08/30/21 10:27 Sodium Chloride IV 100 mls/hr .[id number] ALYSSA Administration Insulin Human Regular 250 unit 252.5 mls @ 0 mls/hr 08/30/21 09:15 08/30/21 10:51 / Sodium Chloride IV 12.7 unit/hr .Q0M ALYSSA 12.83 mls/hr Administration Protocol Per Protocol Insulin Human Lispro 0 unit 08/29/21 21:00 08/30/21 07:43 Insulin Lispro 100 Unit/1 Ml SUBCUT 16 unit WM&BEDTIME ALYSSA Administration Protocol Isosorbide Mononitrate 30 mg 08/29/21 18:00 08/29/21 17:54 Isosorbide Mononitrate Er 30 Mg Tablet PO Not Given BID ALYSSA Lorazepam 0.5 mg 08/29/21 16:00 08/30/21 06:47 Lorazepam 0.5 Mg Tablet PO 0.5 mg TID PRN Administration Anxiety Ondansetron HCl 4 mg 08/29/21 16:00 08/29/21 18:12 Ondansetron 2 Mg/Ml Sdv 2 Ml IVP 4 mg Q6H PRN Administration NAUSEA AND VOMITING Sodium Bicarbonate 650 mg 08/29/21 21:00 08/29/21 21:19 Sodium Bicarbonate 650 Mg Tablet PO 650 mg TID ALYSSA Administration PFSH Acute PFSH: Medical History Gastroparesis Hypertension Uncontrolled diabetes mellitus Vitals/I&O/Wt Last Vital Signs Temp 98.3 F 08/30/21 03:55 Pulse 99 08/30/21 11:32 Resp 18 08/30/21 11:32 BP 126/79 08/30/21 03:55 Pulse Ox 99 08/30/21 11:32 08/29/21 08/30/21 08/30/21 22:59 06:59 14:59 Intake Total 627.504 / 627.504 Output Total 100 / 100 100 / 200 Balance -100 / -100 527.504 / 427.504 Weight last 48 hrs Weight 79.379 kg Physical Exam Narrative: EXAM NARRATIVE: Constitutional: Sedated and vented HEENT: Wet mucosa, no jvp, non icteric Lungs: Bilat poor entry CVS: S1 S2, no murmurs Abdo: Soft, BS ok Ext 4: Minimal edema, peripheral perfusion with no cyanosis Neurological: Grossly non-focal A&P Additional A&P Information 1. Renal failure On admission serum creatinine 3.3 now increasing to 3.7 in the setting of acute respiratory failure. 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 This episode of acute respiratory failure may be associated with acute tubular injury from tissue hypoxia. Given this there is a high risk of requiring hemodialysis from this alone. Currently we are treating her chemistry as outlined below, however, if acidosis or hyperkalemia become recalcitrant to medical therapy this will also be an indication for hemodialysis. We will continue basic metabolic panels every few hours throughout the course of today. No additional need for renal imaging No additional work-up necessary for this renal dysfunction per se. Dose medication for GFR less than 15 Avoid usual nephrotoxic agents 2. Chemistry Anion gap metabolic acidosis, I'm concerned about DKA in the setting of hyperglycemia. Lactic acid level only 3, uremia also possibly contributing to acidosis. If gap does not close with medical therapy and resolution of hyperglycemia, I will consider hemodialysis. Hyperkalemia noncritical. Hypocalcemia normal after correction for low albumin. 3. Respiratory failure Management per ICU team, weaning as tolerated over the next few days once medically stabilized. 4. Recent non-STEMI Management per cardiology, may need angiogram. Following angiogram, she is also at high risk of requiring hemodialysis. Thank you for consultation. Patient seen and examined via telemedicine, with the assistance of the bedside RN > 25 min spent in evaluation and mgmt of patient Consult Attestations Medical Necessity Statement: Eval for MYONR Coding Level of Care Code Acute Insurance Premium Auditor for Vikas Osorio
[2021-08-30 12:14] LABS: Basophils % 0.3 %; Hematocrit 27.8 % (37.0-47.0); Hemoglobin 8.2 g/dL (11.5-15.3); Lymphocytes # 1.1 10^3/uL (0.8-4.8); Lymphocytes % 8.6 %; Mean Corpuscular HGB Conc 29.5 g/dL (30.0-36.0); Mean Corpuscular Hemoglobin 28.5 pg (28.0-34.0); Mean Corpuscular Volume 96.5 fl (81-99); Mean Platelet Volume 10.7 fL (7.4-10.4); Monocytes # 0.7 10^3/uL (0.2-0.9); Monocytes % 5.6 %; Neutrophils # 10.91 10^3/uL (1.8-7.7); Neutrophils % 84.2 %; Nucleated Red Blood Cells % 0 %; Platelet Count 417 10^3/cmm (130-400); Red Blood Count 2.88 10^6/uL (4.1-5.3); Red Cell Distribution Width 14.1 % (12.1-15.1)
[2021-08-30] MEDS: perflutren protein-a microsphr 0.22 mg/mL SDV 3 mL IV (12:54)
[2021-08-30] MEDS: propofol 1,000 MG/100 ML INJ 2.38 MG IV (12:59)
[2021-08-30 13:51] LABS: Glucose Point of Care 483 mg/dL (70-110)
[2021-08-30 13:51] LABS: Glucose Point of Care 357 mg/dL (70-110)
[2021-08-30 15:29] LABS: Anion Gap 18.5 (5-19); Blood Urea Nitrogen 50 mg/dL (8-23); Calcium 7.9 mg/dL (8.5-10.5); Carbon Dioxide 22 mmol/L (22-29); Chloride 106 mmol/L (98-107); Glomerular Filtration Rate 13.5 mL/min (90-130); Glucose 278 mg/dL (65-115); Osmolality Calculated 317 mOsm/kg (285-295); Potassium 4.5 mmol/L (3.5-5.1); Sodium 142 mmol/L (136-145)
--- NOTE | 2021-08-30 15:58 | PC.NURSE ---
Urine and MRSA swab taken to lab and delivered to [place].
--- NOTE | 2021-08-30 16:08 | PC.NURSE ---
80 MLS of Vers[employer] wasted. Witnessed by Sheeba Saul RN.
--- NOTE | 2021-08-30 16:11 | CTR_ITS ---
PROCEDURE INFORMATION: Exam: CT Head Without Contrast Exam date and time: 08/30/2021 4:11 PM Age: 65 years old Clinical indication: Altered mental status/memory loss; Patient HX: PT intubated; Additional info: Rule out bleed TECHNIQUE: Imaging protocol: Computed tomography of the head without contrast. Radiation optimization: All CT scans at this facility use at least one of these dose optimization techniques: automated exposure control; mA and/or kV adjustment per patient size (includes targeted exams where dose is matched to clinical indication); or iterative reconstruction. COMPARISON: No relevant prior studies available. RADIATION DOSE METRICS: Total DLP (mGy-cm): 746.87 FINDINGS: Brain: Normal. No hemorrhage. Unremarkable white matter. No mass effect. Cerebral ventricles: No ventriculomegaly. Paranasal sinuses: Visualized sinuses are unremarkable. No fluid levels. Mastoid air cells: Visualized mastoid air cells are well aerated. Bones/joints: Unremarkable. No acute fracture. Soft tissues: Unremarkable. CT/CT head wo con* [id number] IMPRESSION: No acute intracranial abnormality. Radiation Dose CTDIVOL = (mGy): DLP = 746.87 (mGy-cm)
[2021-08-30 16:54] LABS: Partial Thromboplastin Time 41.7 SECONDS (23.9-36.7)
[2021-08-30 16:56] LABS: Blood Urine 2+ (Negative); Glucose Urine UA 2+ (Normal); Ketones Urine 1+ (Negative); Nitrate Urine Negative (Negative); Protein Urine 3+ (Negative); Urine Appearance Hazy (CLEAR); Urine Color Yellow (Yellow); pH Urine 5 (5-7)
[2021-08-30 16:57] LABS: Add Urine Culture? Yes; Add Urine Microscopic? YES; Bacteria Urine 3+ /hpf; Bilirubin Urine Neg (Negative); Leukocyte Esterase Urine 2+ (Negative); Urobilinogen Urine Norm (Negative); WBC Urine 25-40 /hpf (0-5)
[2021-08-30 17:01] LABS: Lactate (Lactic Acid level) 2.6 mmol/L (0.5-2.2)
--- NOTE | 2021-08-30 17:22 | PM.PN ---
Subjective Subjective: Interval history: This morning patient had an episode when she became unresponsive and had worsening respiratory failure. She has been intubated. Vitals/I&O/Wt Last Vital Signs Temp 98.3 F 08/30/21 03:55 Pulse 85 08/30/21 15:15 Resp 18 08/30/21 15:46 BP 105/64 08/30/21 15:15 Pulse Ox 93 08/30/21 15:46 08/30/21 08/30/21 08/30/21 06:59 14:59 22:59 Intake Total 627.504 / 627.504 129.653 / 129.653 Output Total 100 / 200 Balance 527.504 / 427.504 129.653 / 129.653 Weight last 48 hrs Weight 175 lb Physical Exam Narrative: EXAM NARRATIVE: GENERAL: Patient is intubated NECK: No jugular vein distension. [] HEENT: No cyanosis. No icterus. No pallor. [] HEART: Tachycardic, regular S1 and S2. LUNGS: Mild crackles ABDOMEN: Soft CENTRAL NERVOUS SYSTEM: Grossly nonfocal. [] EXTREMITIES: Lower extremities with 2+ edema bilaterally. Data : 08/31/21 05:30 08/31/21 05:30 Micro: Microbiology 08/30/21 10:30 Gram Stain - Final Sputum - Endotracheal Tube Aspirate 08/30/21 14:32 Blood Culture - Preliminary Blood SPECIMEN COLLECTED 08/30/21 14:35 Blood Culture - Preliminary Blood SPECIMEN COLLECTED A&P Assessment and plan (1) Troponin level elevated: Status: Acute (2) CKD (chronic kidney disease): Status: Acute Qualifiers: Chronic kidney disease stage: unspecified stage Qualified Code(s): N18.9 - Chronic kidney disease, unspecified (3) Acute on chronic diastolic CHF (congestive heart failure): Status: Acute (4) Hypertension: Status: Acute (5) Uncontrolled diabetes mellitus: Status: Acute Patient had a recent NSTEMI. At that time medical management was opted with plan for outpatient stress test. She has come back with congestive heart failure features and shortness of breath. Her troponins have not trended up and are almost at the same level as they were at time of discharge. Patient got intubated secondary to worsening respiratory failure and altered mental status. Possible DKA has also been diagnosed. Her kidney function is worsening. Nephrology has been consulted. She may require dialysis. Continue aspirin and Plavix. Start heparin drip. Echocardiogram performed. On last admission her LVEF was 50%. Will be reviewed today. Secondary to DKA, may not be able to aggressively diurese. She may require dialysis. Per prior documentation patient had refused cardiac cath secondary to risk for NIURKA and outpatient stress test was planned. Her creatinine today is better than on last admission. If dialysis is initiated, it would be reasonable to perform coronary angiogram while patient is intubated to assess coronary artery disease. However we should wait till DKA is resolved and she is more stable clinically. Will discuss with family again. No lower extremity DVT noted on venous duplex of lower extremities Thank you for involving us with care of this patient. We will continue to follow. Please call with questions. Attestations Medical Necessity Statement*: Expected to cross 2 midnights. Coding Level of Care Code Acute Greens Keeper for Vikas Osorio Diagnoses Troponin level elevated R77.8 CKD (chronic kidney disease) N18.9 Chronic kidney disease stage: unspecified stage Acute on chronic diastolic CHF (congestive heart failure) I50.33 Hypertension I10 Uncontrolled diabetes mellitus E11.65
[2021-08-30] MEDS: dextrose 10% 1,000 ML 20 ML IV (18:16)
[2021-08-30] MEDS: pantoprazole 40 mg SDV IVP (18:17)
[2021-08-30] MEDS: metroNIDAZOLE IV 500 MG/100 ML PREMIX 100 MG IV (18:18)
--- NOTE | 2021-08-30 19:00 | PC.NURSE ---
Insulin drip was at 2 mL/hr, and the propofol was at 12 mL/hr at the start of shift. The heparin drip was at 19 mL/hr at the start of shift.
[2021-08-30 19:06] LABS: Glucose Point of Care 299 mg/dL (70-110)
[2021-08-30 19:06] LABS: Glucose Point of Care 124 mg/dL (70-110)
[2021-08-30 19:06] LABS: Glucose Point of Care 148 mg/dL (70-110)
[2021-08-30 19:06] LABS: Glucose Point of Care 182 mg/dL (70-110)
[2021-08-30 19:06] LABS: Glucose Point of Care 253 mg/dL (70-110)
--- NOTE | 2021-08-30 19:06 | PM.ACPR ---
Acute Procedures Intubation: Time out performed: Yes Sedative: etomidate Mg given: 20 Paralytic: rocuronium Mg given: 50 Laryngoscope: fiber optic video scope ET tube size: 8 ET tube uncuffed: Yes Tube secured depth (cm): 24 Tube secured location: lips Tube placement confirmation: visualized tube passing through cords, equal breath sounds bilaterally, no breath sounds over epigastrium and color change noted Patient tolerated procedure: well and no complications
--- NOTE | 2021-08-30 19:08 | PM.ACPR ---
Acute Procedures Central Line Placement^: Right Femoral: Time out performed: Yes Patient placed on monitor/pulse ox: Yes MD prep: mask, gown and gloves Central line prep: Chlorhexidine scrub Local anesthesia used: lidocaine 1% Ultrasound used for placement: Yes Central line lumen inserted: triple Post procedure: sutured in place, good blood return, all ports aspirated, flushed, capped and sterile dressing applied Patient tolerated procedure: well Complications: none
--- NOTE | 2021-08-30 19:10 | PM.ACPR ---
Acute Procedures Central Line Placement^: Left Femoral: Time out performed: Yes Patient placed on monitor/pulse ox: Yes MD prep: mask, gown and gloves Central line prep: Chlorhexidine scrub Local anesthesia used: lidocaine 2% Ultrasound used for placement: Yes Central line lumen inserted: double Post procedure: sutured in place, good blood return, all ports aspirated, flushed, capped and sterile dressing applied Patient tolerated procedure: well Complications: none Additional comments: Double Lumen Lt femoral Dialysis Catheter was placed.
--- NOTE | 2021-08-30 19:43 | PC.NURSE ---
Pt arrived to ICU after Rapid Response. Etomidate pushed at 0822. Konrad pushed at 0824. ET 8. 24 LIP. Heparin gtt off at 0820. Heparin gtt restarted per verbal order at 1100. Heparin gtt off at 1200 per PTT. Heparin gtt restarted at [address] Demarco.
[2021-08-30 20:36] LABS: Glucose Point of Care 103 mg/dL (70-110)
--- NOTE | 2021-08-30 20:53 | PC.NURSE ---
I talked on the phone with Dr. Ian Nesbitt, with nephrology, to clarify what he wanted done with the insulin drip order. He confirmed to keep the D10 drip running at a set rate and to follow the insulin protocol in the ICU.
[2021-08-30 21:22] LABS: Glucose Point of Care 89 mg/dL (70-110)
[2021-08-30] MEDS: atorvastatin 40 mg Tablet PO (21:46)
[2021-08-30 22:17] LABS: Glucose Point of Care 98 mg/dL (70-110)
--- NOTE | 2021-08-30 22:31 | PM.CONSULT ---
Providers/Reason For Consult Consulting Physician/Specialty*: Ar Celaya MD/Pulmonary Critical Care Reason for Consult*: Ventilator management Requesting Physician: Pattie Demarco MD Attending Physician: Pattie Demarco MD History of Present Illness History of Present Illness Pulmonary critical care consultation requested for vent management in a patient was a intubated for impending respiratory failure s/p rapid response due to high blood sugar over 500 and K6.1, altered mental status today morning. After assessing rapid response-patient was transferred to ICU for management of DKA, worsening MYNOR,?? ACS/PE on heparin drip and was intubated for impending respiratory failure. Post intubation patient was sedated. Hence most of the HPI and clinical course is inferred from admission notes and discussion with hospitalist. Upon review of chart, patient is identified as Ms. Cony Temple is a 65 year old female With past medical history of insulin-dependent type 2 diabetes, chronic kidney disease, hypertension, recent NSTEMI, COPD, suspected gastroparesis from prior admission who presented to the hospital yesterday 08/29/2021 with complaint of shortness of breath. At the time of admission, she stated that she was was not really doing anything at the time and was resting on her chair when she developed shortness of breath. She does state that she has chronic lower extremity edema especially pedal edema. She was placed on a water pill at her last admission. She was also asked to follow-up with nephrology for developing MYNOR during previous admission. She states that she was unable to follow-up with her PCP or nephrology so far but ended up in the hospital. She denies having any chest pain or abdominal pain. She does have shortness of breath on exertion and feels that she cannot get the air in. She also states when she lies down the shortness of breath is worse but when she sits up it gets better. In the ED she was on 2 L nasal cannula but not on any oxygen at home. Admission labs: Blood pressure 197/104, respiratory 24, pulse 106, temperature 97.8, saturating 96%. BNP 45,000, first troponin XI 71, second troponin elevated. Delta troponin 64. EKG did show ST depression V3 V4. She was started on heparin drip as per cardiology recommendation. Creatinine 2.4. CTA to rule out PE could not be done due to high creatinine. During previous admission she had pulmonary edema, elevated troponin, severe hyperkalemia, MYNOR, anion gap respiratory metabolic acidosis, chronic cholecystitis. Patient was discharged on Augmentin with close follow-up with general surgery as an outpatient for her chronic cholecystitis. Echocardiogram did show diffuse hypokinesia of anteroseptal segment with grade 4 diastolic dysfunction. Patient was medically managed as she did refuse to have an angiogram since she had an MYNOR and she was high risk for contrast-induced nephropathy. Her creatinine was 3.2 on discharge. She was put on sodium bicarb tablets and to follow-up with nephrology as an outpatient. She was placed on Lasix 40 daily. Patient also refused to have a stress test at the previous visit. Patient seen at bedside today Intubated, sedated and connected to ventilator -Saturating 93% on 35% FiO2 and pulling 360- 380 tidal volumes -ABG post intubation showed pH 7.24/30/50/40 on CMV 350/14/70 percent/5 PEEP -Labs are positive for ketones, increased anion gap metabolic acidosis -Patient was started on insulin drip and bicarb drip and close monitoring of BMP,; patient was already on heparin drip -Nephrology consulted and HD catheter was placed in anticipation of possible hemodialysis-if metabolic acidosis did not improve -Other labs and imaging reviewed Review of Systems General: Reports: ROS unobtainable due to endotracheal tube, ROS unobtainable due to medical condition and ROS unobtainable due to mental status Meds/Allergies Home Medications and Allergies Home Medications Medication Instructions Recorded Confirmed Last Taken Type insulin aspart U-100 [Novolog See Rx Instructions .ROUTE .COMPLEX 08/21/21 08/29/21 08/29/21 08:30 History Flexpen U-100 Insulin] 10 units lorazepam 0.5 mg PO TID PRN 08/21/21 08/29/21 08/20/21 21:00 History metoclopramide HCl 10 mg PO .TID & AT BEDTIME 08/21/21 08/29/21 08/20/21 History pantoprazole 40 mg PO DAILY 08/21/21 08/29/21 08/20/21 History amoxicillin-pot clavulanate 1 tab PO BID 10 Days #20 tab 08/26/21 08/29/21 Unknown Rx [Augmentin] aspirin [Children's Aspirin] 81 mg PO DAILY 30 Days #30 tab 08/26/21 08/29/21 Unknown Rx atorvastatin 40 mg PO BEDTIME 30 Days #30 tab 08/26/21 08/29/21 Unknown Rx clopidogrel 75 mg PO DAILY 30 Days #30 tab 08/26/21 08/29/21 Unknown Rx furosemide [Lasix] 40 mg PO DAILY 30 Days #30 tab 08/26/21 08/29/21 Unknown Rx hydralazine 50 mg PO TID 30 Days #90 tab 08/26/21 08/29/21 Unknown Rx isosorbide mononitrate 30 mg PO BID 30 Days #60 tab 08/26/21 08/29/21 Unknown Rx metoprolol tartrate 50 mg PO BID@0900,2100 30 Days #60 08/26/21 08/29/21 Unknown Rx tab potassium chloride [Klor-Con 10] 10 meq PO DAILY 30 Days #30 tab 08/26/21 08/29/21 Unknown Rx sodium bicarbonate 650 mg PO TID 30 Days #90 tab 08/26/21 08/29/21 Unknown Rx insulin glargine [Lantus Solostar 8 unit SUBCUT Q12H 08/29/21 08/29/21 Unknown History U-100 Insulin] venlafaxine 75 mg PO DAILY 08/29/21 08/29/21 Unknown History Allergies Allergy/AdvReac Type Severity Reaction Status Date / Time azithromycin Allergy Unknown Verified 08/10/21 22:41 mycins Allergy Unknown Uncoded 08/10/21 22:41 Current Medications Current Medications Generic Name Dose Route Start Last Admin Trade Name Freq PRN Reason Stop Dose Admin Albuterol/Ipratropium 3 ml 08/29/21 20:38 08/30/21 11:30 Ipratropium-Albuterol 3 Ml Neb INHALATION 3 ml Q4H.RESPIRATORY PRN Administration AIR HUNGER Aspirin 81 mg 08/30/21 09:00 08/30/21 18:29 Aspirin 81 Mg Chew Tablet PO Not Given DAILY ALYSSA Atorvastatin Calcium 40 mg 08/29/21 21:00 08/30/21 21:46 Atorvastatin 40 Mg Tablet PO 40 mg BEDTIME ALYSSA Administration Clopidogrel Bisulfate 75 mg 08/30/21 09:00 08/30/21 18:30 Clopidogrel 75 Mg Tablet PO Not Given DAILY ALYSSA Hydralazine HCl 50 mg 08/29/21 21:00 08/30/21 15:15 Hydralazine 50 Mg Tablet PO Not Given TID ALYSSA Heparin Sodium/Sodium Chloride 25,000 unit in 500 mls @ 0 mls/hr 08/29/21 13:30 08/30/21 18:16 Heparin Drip IV 11.97 unit/kg/hr .Q0M ALYSSA 19 mls/hr Titration Protocol Per Protocol Metronidazole 500 mg in 100 mls @ 100 mls/hr 08/29/21 21:00 08/30/21 19:59 Flagyl Iv IV Infused Q8H [facility] Infusion Protocol Insulin Human Regular 250 unit 252.5 mls @ 0 mls/hr 08/30/21 09:15 08/30/21 18:20 / Sodium Chloride IV 4 unit/hr .Q0M ALYSSA 4.04 mls/hr Titration Protocol Per Protocol Propofol 1,000 mg in 100 mls @ 0 mls/hr 08/30/21 11:00 08/30/21 12:59 Diprivan IV 5 mcg/kg/min .Q0M ALYSSA 2.38 mls/hr Administration Protocol Per Protocol Dextrose/Sodium Chloride 1,000 mls @ 75 mls/hr 08/30/21 17:45 08/30/21 19:58 Dextrose 5%-Sod Chloride 0.45% IV Not Given .[id number] ALYSSA Dextrose 1,000 mls @ 20 mls/hr 08/30/21 18:00 08/30/21 18:16 D10w IV 20 mls/hr .Q24H ALYSSA Administration Insulin Human Lispro 0 unit 08/29/21 21:00 08/30/21 21:46 Insulin Lispro 100 Unit/1 Ml SUBCUT Not Given WM&BEDTIME [facility] Protocol Isosorbide Mononitrate 30 mg 08/29/21 18:00 08/30/21 18:30 Isosorbide Mononitrate Er 30 Mg Tablet PO Not Given BID ALYSSA Lorazepam 0.5 mg 08/29/21 16:00 08/30/21 06:47 Lorazepam 0.5 Mg Tablet PO 0.5 mg TID PRN Administration Anxiety Metoprolol Succinate 25 mg 08/30/21 09:00 08/30/21 15:14 Metoprolol Succinate Er (24 Hr) 25 Mg Tablet PO Not Given DAILY [facility] Ondansetron HCl 4 mg 08/29/21 16:00 08/29/21 18:12 Ondansetron 2 Mg/Ml Sdv 2 Ml IVP 4 mg Q6H PRN Administration NAUSEA AND VOMITING Pantoprazole Sodium 40 mg 08/30/21 09:00 08/30/21 18:[address] 40 Mg Tablet PO Not Given DAILY ALYSSA Pantoprazole Sodium 40 mg 08/30/21 16:30 08/30/21 18:17 Pantoprazole 40 Mg Sdv IVP 40 mg Q12H ALYSSA Administration Sodium Bicarbonate 650 mg 08/29/21 21:00 08/29/21 21:19 Sodium Bicarbonate 650 Mg Tablet PO 650 mg TID ALYSSA Administration PFSH Acute PFSH: Medical History Gastroparesis Hypertension Uncontrolled diabetes mellitus Vitals/I&O/Wt Last Vital Signs Temp 98.3 F 08/30/21 03:55 Pulse 87 08/30/21 19:15 Resp 18 08/30/21 21:55 BP 109/64 08/30/21 19:15 Pulse Ox 98 08/30/21 21:55 08/30/21 08/30/21 08/30/21 06:59 14:59 22:59 Intake Total 627.504 / 627.504 129.653 / 129.653 144.137 / 273.790 Output Total 100 / 200 Balance 527.504 / 427.504 129.653 / 129.653 144.137 / 273.790 Weight last 48 hrs Weight 175 lb Physical Exam Narrative: EXAM NARRATIVE: PHYSICAL EXAM: General: lying in bed, sedated and intubated. HEENT:NCAT, PERRLA, EOMI Neck: Supple Lungs: Clear, Heart: s1/s2, RRR Abd: soft, NT, ND, BS + Normoactive Extremities: No edema RENTAL COUNTER CLERK: sedated and limited RENTAL COUNTER CLERK exam possible. SKIN: no rash LDA: # CVC: Right femoral CVC 08/30/2021 # HD Cath : Left femoral 08/30/2021 # Dickson: 08/30/2021 Data Labs: Other Labs: Laboratory Results WBC 13.0 10^3/uL (4.0 -10.0) H 08/30/21 12:04 RBC 2.88 10^6/uL (4.1 -5.3) L 08/30/21 12:04 Hgb 8.2 g/dL (11.5-15 .3) L 08/30/21 12:04 Hct 27.8 % (37.0-47.0 ) L 08/30/21 12:04 MCV 96.5 fl (81-99) 08/30/21 12:04 MCH 28.5 pg (28.0-34. 0) 08/30/21 12:04 MCHC 29.5 g/dL (30.0-3 6.0) L 08/30/21 12:04 RDW 14.1 % (12.1-15.1 ) 08/30/21 12:04 Plt Count 417 10^3/cmm (130 -400) H 08/30/21 12:04 MPV 10.7 fL (7.4-10.4 ) H 08/30/21 12:04 Neut % (Auto) 84.2 % 08/30/21 12:04 Lymph % (Auto) 8.6 % 08/30/21 12:04 Churchill % (Auto) 5.6 % 08/30/21 12:04 Eos % (Auto) 0.0 % 08/30/21 12:04 Baso % (Auto) 0.3 % 08/30/21 12:04 Neut # (Auto) 10.91 10^3/uL (1. 8-7.7) H 08/30/21 12:04 Lymph # (Auto) 1.1 10^3/uL (0.8- 4.8) 08/30/21 12:04 Churchill # (Auto) 0.7 10^3/uL (0.2- 0.9) 08/30/21 12:04 Eos # (Auto) 0.0 10^3/uL (0.0- 0.8) 08/30/21 12:04 Baso # (Auto) 0.0 10^3/uL (0.0- 0.1) 08/30/21 12:04 Nucleated RBC % (a uto) 0 % 08/30/21 12:04 Nucleated RBCs # 0.0 /100WBC 08/30/21 12:04 PT 14.60 SECONDS (12 .1-14.9) 08/30/21 05:12 INR 1.11 (0.8-1.2) 08/30/21 05:12 APTT 41.7 SECONDS (23. 9-36.7) H D 08/30/21 16:34 D-Dimer 1.16 ug/mIFEU (0- 0.59) H 08/29/21 20:48 Specimen Type Arterial 08/30/21 10:30 Sample Site Brachial, left 08/30/21 10:30 ABG pH 7.24 (7.35-7.45) L 08/30/21 10:30 ABG pCO2 33.6 mmHg (35-45) L 08/30/21 10:30 ABG pO2 150.0 mmHg (80.0- 100.0) H 08/30/21 10:30 ABG HCO3 14.3 mmol/L (22-2 6) L 08/30/21 10:30 ABG O2 Saturation 99.6 08/30/21 10:30 ABG Base Excess -12.1 mmol/L (-2. 0-2.0) L 08/30/21 10:30 Tj Test Pos 08/30/21 10:30 A-a O2 Gradient 40.0 mmHg (5-10) H 08/30/21 10:30 Hematocrit 24.5 % (37-47) L 08/30/21 10:30 Hgb O2 Saturation 98.1 % (95-100) 08/30/21 10:30 Carboxyhemoglobin 0.6 %THgb (0.4-20 .1) 08/30/21 10:30 Methemoglobin 0.9 % (0.4-1.5) 08/30/21 10:30 Total Hemoglobin 8.0 g/dL (12-16) L 08/30/21 10:30 Sodium 140.0 mmol/L (131 -143) 08/30/21 10:30 Potassium 4.9 mmol/L (3.5-5 .0) 08/30/21 10:30 Glucose 520.0 mg/dL (70-1 15) H 08/30/21 10:30 Ionized Calcium 1.2 mmol/L (1.1-1 .4) 08/30/21 10:30 O2 Delivery Device Vent 08/30/21 10:30 FiO2 70.0 % 08/30/21 10:30 Tidal Volume 0.35 08/30/21 10:30 PEEP 5.0 cmH20 08/30/21 10:30 Salvage Cutter ID Cak 08/30/21 10:30 Sodium 142 mmol/L (136-1 45) 08/30/21 14:45 Potassium 4.5 mmol/L (3.5-5 .1) 08/30/21 14:45 Chloride 106 mmol/L (98-10 7) 08/30/21 14:45 Carbon Dioxide 22 mmol/L (22-29) 08/30/21 14:45 Anion Gap 18.5 (5-19) 08/30/21 14:45 BUN 50 mg/dL (8-23) H 08/30/21 14:45 Creatinine 3.4 mg/dL (0.5-0. 9) H 08/30/21 14:45 GFR Calculation 13.5 mL/min (90-1 30) L 08/30/21 14:45 Glucose 278 mg/dL (65-115 ) H 08/30/21 14:45 POC Glucose 98 mg/dL (70-110) 08/30/21 22:14 Calculated Osmolal ity 317 mOsm/kg (285- 295) H 08/30/21 14:45 Lactate 2.6 mmol/L (0.5-2 .2) H 08/30/21 16:34 Calcium 7.9 mg/dL (8.5-10 .5) L 08/30/21 14:45 Phosphorus 5.0 mg/dL (2.5-4. 5) H 08/30/21 05:12 Magnesium 2.1 mg/dL (1.7-2. 3) 08/30/21 05:12 Total Bilirubin 0.2 mg/dL (0.15-1 .2) 08/30/21 05:12 AST 31 U/L (0-32) 08/30/21 05:12 ALT 38 U/L (0-33) H 08/30/21 05:12 Alkaline Phosphata se 323 IU/L (35-105) H 08/30/21 05:12 Troponin T Baselin e 1177 ng/L (0-10) H* 08/29/21 11:42 Troponin T 120 Min [place] 1240 ng/L (0-10) H 08/29/21 13:36 Delta Troponin T 63 ABS# (0-10) H * 08/29/21 13:36 Troponin T Hi Sens 6Hr 1083 ng/L (0-10) H 08/29/21 18:10 Troponin T Hi Sens 6Hr Delta -94 ng/L (0-12) L 08/29/21 18:10 C-Reactive Protein 35.0 mg/L (0.0-4. 9) H 08/30/21 05:12 NT-Pro-B Natriuret Pep 83593 pg/mL (0-12 5) H 08/29/21 11:42 Total Protein 5.7 g/dL (6.6-8.7 ) L 08/30/21 05:12 Albumin 3.2 g/dL (3.5-5.2 ) L 08/30/21 05:12 Globulin 2.5 g/dL (1.3-4.6 ) 08/30/21 05:12 Procalcitonin 0.50 ng/mL (0-0.5 ) 08/29/21 11:42 Urine Color Yellow (Yellow) 08/30/21 15:45 Urine Appearance Hazy (CLEAR) A 08/30/21 15:45 Urine pH 5 (5-7) 08/30/21 15:45 Ur Specific Gravit y 1.020 (1.005-1.0 30) 08/30/21 15:45 Urine Protein 3+ (Negative) H 08/30/21 15:45 Urine Glucose (UA) 2+ (Normal) H 08/30/21 15:45 Urine Ketones 1+ (Negative) H 08/30/21 15:45 Urine Blood 2+ (Negative) H 08/30/21 15:45 Urine Nitrate Negative (Negati ve) 08/30/21 15:45 Urine Bilirubin Neg (Negative) 08/30/21 15:45 Urine Urobilinogen Norm mg/dL (Negat femi) 08/30/21 15:45 Ur Leukocyte Madyson ase 2+ (Negative) H 08/30/21 15:45 Urine RBC 10-15 /hpf (0-2) H 08/30/21 15:45 Urine WBC 25-40 /hpf (0-5) H 08/30/21 15:45 Ur Squamous Epith Cells 5-10 /hpf (0-5) H 08/30/21 15:45 Amorphous Sediment Not Reportable 08/30/21 15:45 Urine Bacteria 3+ /hpf (NONE) H 08/30/21 15:45 Serum Ketones Positive (Negati ve) H 08/30/21 10:00 SARS-CoV-2 Ag (Rap id) Negative (Negati ve) 08/29/21 12:29 Impressions Chest X-Ray 08/30/21 08:50 IMPRESSION: 1. Endotracheal tube terminates 4.0 cm above the joan. Feeding tube courses into the gastric body with distal tip not visualized. 2. Interstitial prominence and basilar airspace /pleural disease. Radiation Dose CTDIVOL = (mGy): DLP = (mGy-cm) Head CT 08/30/21 16:11 IMPRESSION: No acute intracranial abnormality. Radiation Dose CTDIVOL = (mGy): DLP = 746.87 (mGy-cm) Micro: Micro: Microbiology 08/30/21 10:30 Gram Stain - Final Sputum - Endotrac heal Tube Aspirate 08/30/21 14:32 Blood Culture - Pr eliminary Blood SPECIMEN COLLE ELAN 08/30/21 14:35 Blood Culture - Pr eliminary Blood SPECIMEN COLLE ELAN A&P Assessment and plan (1) Difficult ventilator weaning: Status: Acute (2) AMS (altered mental status): Status: Acute Qualifiers: Altered mental status type: unspecified Qualified Code(s): R41.82 - Altered mental status, unspecified (3) Respiratory failure: Status: Acute Qualifiers: Chronicity: acute on chronic Respiratory failure complication: unspecified whether with hypoxia or hypercapnia Qualified Code(s): J96.20 - Acute and chronic respiratory failure, unspecified whether with hypoxia or hypercapnia (4) Acute on chronic diastolic CHF (congestive heart failure): Status: Acute (5) NSTEMI (non-ST elevated myocardial infarction): Status: Acute (6) DKA (diabetic ketoacidosis): Status: Acute Qualifiers: Diabetes mellitus type: type 2 Diabetes mellitus complication detail: without coma Qualified Code(s): E11.10 - Type 2 diabetes mellitus with ketoacidosis without coma (7) Acute renal failure superimposed on chronic kidney disease: Status: Acute Qualifiers: Acute renal failure type: unspecified Chronic kidney disease stage: unspecified stage Qualified Code(s): N17.9 - Acute kidney failure, unspecified; N18.9 - Chronic kidney disease, unspecified (8) CKD (chronic kidney disease): Status: Acute Qualifiers: Chronic kidney disease stage: unspecified stage Qualified Code(s): N18.9 - Chronic kidney disease, unspecified #Altered mental status-likely secondary to DKA/hypoxic respiratory failure/uremic encephalopathy in the setting of worsening MYNOR #Acute hypoxic respiratory failure-secondary to bilateral pleural effusions in the setting of acute on chronic diastolic dysfunction and superimposing DKA #NSTEMI in patient with acute on chronic diastolic CHF #Acute on chronic CKD-secondary to uncontrolled longstanding diabetes and hypertension #Diabetic ketoacidosis #Ventilator management -Overall patient appears noncompliant with her overall care and seems to be having longstanding uncontrolled diabetes with A1c 12.6 on 08/12/2021 and with documented history of refusing several investigations including stress test for possible underlying NSTEMI and follow-up with nephrology in the setting of MYNOR -I feel her respiratory distress upon admission could be secondary to worsening DKA and bilateral pleural effusions secondary to acute on chronic diastolic dysfunction/NSTEMI/worsening MYNOR -Currently intubated and on CMV mode 350/14/35%/PEEP 5; ABG suggestive of metabolic acidosis with pH 7.24 -Currently sedated with fentanyl and propofol; avoid Versed if possible -Once underlying issues leading to her fluid overload are addressed which depends on cardiology/nephrology plan for further interventions either diuresis/hemodialysis which might help resolve bilateral pleural effusions-will slowly wean off sedation and assess her mentation and then perform breathing trial to evaluate for possible extubation in 1 to 2 days -Meanwhile, cardiology to decide on further management of NSTEMI and acute on chronic diastolic heart failure; currently patient on heparin drip with frequent monitoring of APTT; patient already on aspirin, statin, Plavix, beta-shanthi, Imdur -Also earlier plan was to get VQ scan/venous Doppler to rule out PE/DVT-but apparently patient refused -Also nephrology on board for MYNOR on CKD-agree with him patient has no urgent indication for hemodialysis; at this point will discontinue bicarb and continue insulin drip to minimize acidosis and monitor urine output and electrolytes; if patient continues to be oliguric/anuric with worsening electrolytes and renal functions-she may need hemodialysis in the near future. Also have to wait and see if cardiology are planning to do contrast angiogram which might also affect her renal function. -For DKA-currently she is on insulin drip and as her sugars were < 200 -recommended to start on D10 at 20 cc to minimize fluid intake in view of possible CHF exacerbation/hypoxic ATN patient with CKD;FSBS between 120-180 until anion gap is closed -Later bridged with subcutaneous insulin and discontinue insulin drip will start NG feeding -Monitor BMP every 4-6 hours to check for electrolytes -Once anion gap is closed-patient can be started on tube feeding Glucerna at 30 mils per hour -DVT prophylaxis; patient is already on heparin drip -PPI for GI prophylaxis as patient is intubated and mechanically ventilated -Full code -Prognosis-guarded -NOK updated by hospitalist taking care of the patient Recommendations conveyed to hospitalist, RN, RT taking care of the patient Consult Attestations Medical Necessity Statement: AMS/respiratory failure/DKA/NSTEMI/acute on chronic heart failure/acute on chronic kidney disease-requiring mechanical ventilation/heparin drip/insulin drip/possible hemodialysis-needs close ICU monitoring Time Spent in Patient Care: Greater than 35 minutes (>than 50% of time spent in counselling and/or direct pt care on unit). Critical Care Time: The high probability of a clinically significant, sudden or life threatening deterioration of the patient's [pulmonary, endocrine, renal, cardiac] system(s) required my full and direct attention, intervention and personal management. The critical care time is as shown. This time is in addition to time spent performing any reported procedures but includes the following: [x] Data and vital sign review and interpretation [x] Patient assessment, examination and intervention [x] Documentation [x] Medication orders and management Critical Care Time (min): 48 Coding Level of Care Code New Pt Acute Visually Impaired Teacher for Chg Fwd Patient Type New History Comprehensive Exam Comprehensive Medical Decision Making High Complexity Diagnoses Difficult ventilator weaning Z99.11 AMS (altered mental status) R41.82 Altered mental status type: unspecified Respiratory failure J96.20 Chronicity: acute on chronic Respiratory failure complication: unspecified whether with hypoxia or hypercapnia Acute on chronic diastolic CHF (congestive heart failure) I50.33 NSTEMI (non-ST elevated myocardial infarction) I21.4 DKA (diabetic ketoacidosis) E11.10 Diabetes mellitus type: type 2 Diabetes mellitus complication detail: without coma Acute renal failure superimposed on chronic kidney disease N17.9; N18.9 Acute renal failure type: unspecified Chronic kidney disease stage: unspecified stage CKD (chronic kidney disease) N18.9 Chronic kidney disease stage: unspecified stage Time Spent (min) 48
[2021-08-31] VITALS (69 sets, daily range): BP systolic 86–145; BP diastolic 50–84; PULSE 76–98; RESP 18–19; TEMP 36.8–37.4; O2SAT 94–98; BMI 30.1
[2021-08-31] MEDS: metroNIDAZOLE IV 500 MG/100 ML PREMIX 100 MG IV ×3 (00:12→16:58)
[2021-08-31] MEDS: cefepime 2,000 MG in sodium chloride 0.9% (plus) 50 ML 100 MG IV (00:13)
[2021-08-31 00:44] LABS: Blood Urea Nitrogen 50 mg/dL (8-23); Carbon Dioxide 21 mmol/L (22-29); Chloride 104 mmol/L (98-107); Glomerular Filtration Rate 11.8 mL/min (90-130); Glucose 135 mg/dL (65-115); Osmolality Calculated 303 mOsm/kg (285-295); Sodium 139 mmol/L (136-145)
[2021-08-31 00:59] LABS: Glucose Point of Care 102 mg/dL (70-110)
[2021-08-31 00:59] LABS: Glucose Point of Care 137 mg/dL (70-110)
[2021-08-31 01:40] LABS: Partial Thromboplastin Time 158.8 SECONDS (23.9-36.7)
[2021-08-31 02:40] LABS: Glucose Point of Care 133 mg/dL (70-110)
[2021-08-31 02:40] LABS: Glucose Point of Care 172 mg/dL (70-110)
[2021-08-31] MEDS: propofol 1,000 MG/100 ML INJ 9.53 MG IV ×3 (02:46→23:59)
[2021-08-31] MEDS: pantoprazole 40 mg SDV IVP ×2 (03:34→16:57)
[2021-08-31] MEDS: heparin drip 25,000 UNIT/500 ML PREMIX 22.23 UNIT IV (03:54)
--- NOTE | 2021-08-31 04:00 | XRR_ITS ---
PROCEDURE INFORMATION: Exam: XR Chest Exam date and time: 08/31/2021 4:00 AM Age: 65 years old Clinical indication: Condition or disease; Lung condition and disease; Respiratory failure; Status not specified; Patient HX: F/u resp failure. Intubated. ; Additional info: Follow up TECHNIQUE: Imaging protocol: XR of the chest. Views: 1 view. COMPARISON: CR XR chest 1V portable [id number] 08/30/2021 9:01 AM FINDINGS: Tubes, catheters and devices: Endotracheal and feeding tubes again demonstrated. The endotracheal tube terminates 3.0 cm above the joan. Lungs: Interval worsening in bilateral airspace disease, left greater than right. Interstitial prominence. Pleural spaces: Bilateral pleural effusions. Heart/Mediastinum: Borderline cardiomegaly. Bones/joints: Osteopenia and degenerative change. XR/XR chest 1V portable [id number] IMPRESSION: 1. Interval worsening in bilateral airspace disease, left greater than right. 2. Bilateral pleural effusions. Radiation Dose CTDIVOL = (mGy): DLP = (mGy-cm)
[2021-08-31 04:11] LABS: Glucose Point of Care 172 mg/dL (70-110)
[2021-08-31 05:09] LABS: ABG PCO2 30.9 mmHg (35-45); ABG PH Result 7.43 (7.35-7.45); Base Excess ABG -3.2 mmol/L (-2.0-2.0); HCO3 ABG 20.6 mmol/L (22-26); Oxygen Saturation ABG 96.5; PO2 ABG 72.3 mmHg (80.0-100.0); Potassium Level - ABG 3.7 mmol/L (3.5-5.0)
[2021-08-31 05:10] LABS: Arterial Blood Gas Hematocrit 22.2 % (37-47); Blood Gas Allen Test pos; Blood Gas Sample Type Arterial; Oxygen Device vent
[2021-08-31 05:11] LABS: Alveolar-Arterial Oxygen Gradi 134.2 mmHg (5-10); Carboxyhemoglobin 0.7 %THgb (0.4-20.1); HGB O2 Sat 95.3 % (95-100); Ionized Calcium Level - ABG 1.2 mmol/L (1.1-1.4); Methemoglobin 0.5 % (0.4-1.5); Total Hemoglobin 7.2 g/dL (12-16)
[2021-08-31 05:39] LABS: Basophils # 0.1 10^3/uL (0.0-0.1); Basophils % 0.5 %; Eosinophils # 0.2 10^3/uL (0.0-0.8); Eosinophils % 1.3 %; Hematocrit 24.6 % (37.0-47.0); Hemoglobin 7.7 g/dL (11.5-15.3); Lymphocytes # 2.4 10^3/uL (0.8-4.8); Lymphocytes % 14.4 %; Mean Corpuscular HGB Conc 31.3 g/dL (30.0-36.0); Mean Corpuscular Hemoglobin 28.8 pg (28.0-34.0); Mean Corpuscular Volume 92.1 fl (81-99); Mean Platelet Volume 10.9 fL (7.4-10.4); Monocytes # 1.7 10^3/uL (0.2-0.9); Monocytes % 9.9 %; Neutrophils # 12.33 10^3/uL (1.8-7.7); Neutrophils % 73.2 %; Nucleated Red Blood Cells % 0 %; Platelet Count 381 10^3/cmm (130-400); Red Blood Count 2.67 10^6/uL (4.1-5.3); White Blood Count 16.8 10^3/uL (4.0-10.0)
[2021-08-31 05:46] LABS: Glucose Point of Care 183 mg/dL (70-110)
[2021-08-31 06:01] LABS: Lactate (Lactic Acid level) 1.6 mmol/L (0.5-2.2)
[2021-08-31 06:02] LABS: Alanine Aminotransferase 47 U/L (0-33); Albumin Level 2.4 g/dL (3.5-5.2); Alkaline Phosphatase 230 IU/L (35-105); Anion Gap 17.9 (5-19); Aspartate Amino Transferase 156 U/L (0-32); Blood Urea Nitrogen 50 mg/dL (8-23); Calcium 7.6 mg/dL (8.5-10.5); Carbon Dioxide 21 mmol/L (22-29); Chloride 102 mmol/L (98-107); Globulin 2.2 g/dL (1.3-4.6); Glomerular Filtration Rate 11.8 mL/min (90-130); Glucose 166 mg/dL (65-115); Osmolality Calculated 301 mOsm/kg (285-295); Potassium 3.9 mmol/L (3.5-5.1); Sodium 137 mmol/L (136-145); Total Bilirubin 0.2 mg/dL (0.15-1.2); Total Protein 4.6 g/dL (6.6-8.7)
[2021-08-31 06:22] LABS: Partial Thromboplastin Time 155.1 SECONDS (23.9-36.7)
[2021-08-31 06:40] LABS: Glucose Point of Care 162 mg/dL (70-110)
--- NOTE | 2021-08-31 07:00 | PC.NURSE ---
I talked to Dr. Layne and reported a critical PTT for the patient. I was unable to get a hold of Dr. Valles who I tried to contact via phone and [employer]. I was unable to get a hold of him. I had initially stopped the heparin drip at 0627, after receiving report from lab that he patient's PTT was 155.1. I received an order from Dr. Layne to continue to the heparin drip and to follow the ICU insulin protocol. The heparin drip, which was stopped at 14 mL/hr was started again at 0700 at 9 mL/hr per protocol.
[2021-08-31 07:27] LABS: Coronavirus Test Green County Not Detected
[2021-08-31] MEDS: ipratropium-albuterol 3 mL Neb INHALATION (07:42)
--- NOTE | 2021-08-31 07:43 | PM.PN ---
Subjective Subjective: Interval history: Patient continues to be on ventilator. Not making any significant amount of urine. Telemetry demonstrating significant ST depressions compared to before. Underwent coronary angiogram today after discussion with nephrology and family wanted to proceed with the procedure. Vitals/I&O/Wt Last Vital Signs Temp 99.3 F 08/31/21 04:00 Pulse 82 08/31/21 06:15 Resp 18 08/31/21 06:26 BP 112/55 08/31/21 06:15 Pulse Ox 96 08/31/21 06:26 08/30/21 08/31/21 08/31/21 22:59 06:59 14:59 Intake Total 168.623 / 298.276 416.064 / 714.340 0 / 0 Balance 168.623 / 298.276 416.064 / 714.340 0 / 0 Weight last 48 hrs Weight 164 lb 9 oz Weight 175 lb Physical Exam Narrative: EXAM NARRATIVE: GENERAL: Patient is intubated NECK: No jugular vein distension. [] HEENT: No cyanosis. No icterus. No pallor. [] HEART: Tachycardic, regular S1 and S2. LUNGS: Mild crackles ABDOMEN: Soft CENTRAL NERVOUS SYSTEM: Grossly nonfocal. [] EXTREMITIES: Lower extremities with 2+ edema bilaterally. Data : 08/31/21 12:46 08/31/21 05:30 Micro: Microbiology 08/30/21 10:30 Gram Stain - Final Sputum - Endotracheal Tube Aspirate 08/30/21 14:32 Blood Culture - Preliminary Blood SPECIMEN COLLECTED 08/30/21 14:35 Blood Culture - Preliminary Blood SPECIMEN COLLECTED A&P Assessment and plan (1) Troponin level elevated: Status: Acute (2) CKD (chronic kidney disease): Status: Acute Qualifiers: Chronic kidney disease stage: unspecified stage Qualified Code(s): N18.9 - Chronic kidney disease, unspecified (3) Acute on chronic diastolic CHF (congestive heart failure): Status: Acute (4) Hypertension: Status: Acute (5) Uncontrolled diabetes mellitus: Status: Acute (6) NSTEMI (non-ST elevated myocardial infarction): Status: Acute Patient had a recent NSTEMI. At that time medical management was opted secondary to risk for NIURKA . She came back with congestive heart failure, shortness of breath and pulmonary edema. Troponin elevated however likely from prior hospitalization Patient got intubated secondary to worsening respiratory failure and altered mental status. DKA resolved now. I had a detailed discussion with patient's daughter and nephrology team. Given her significant CKD, and lack of urine production, patient's risk of permanent dialysis is high with or without contrast. She has a dialysis catheter . Dialysis plan after coronary angiogram. I described to the patient's daughter the risk of NIURKA and permanent dialysis if we proceed with coronary angiogram. Given ST segment changes today and recurrent pulmonary edema, shared decision was made to proceed with coronary angiogram. Her likelihood of multivessel disease/left main disease was high. Coronary angiogram confirmed multivessel disease with severe proximal and mid RCA stenosis, severe PDA stenosis, severe OM1 stenosis, severe mid to distal diffuse left circumflex artery stenosis and severe ostial to proximal very large diagonal artery stenosis. CT surgery is not available at the hospital, we had a discussion with patient's family that she will benefit from transfer to a center with CT surgery availability for heart team discussion regarding best plan of care for her. Complete revascularization with PCI will require multiple stents. Nephrology on board. Appreciate recommendations. Plan for dialysis post angiogram. Continue aspirin and Plavix. Continue heparin drip Echocardiogram demonstrating LV EF of 45 to 50% with a slightly reduced from before No lower extremity DVT noted on venous duplex of lower extremities Thank you for involving us with care of this patient. We will continue to follow. Please call with questions. Attestations Medical Necessity Statement*: Care expected to cross 2 midnights. Coding Level of Care Code Acute Window Shade Ring Coverer for Vikas Osorio Diagnoses Troponin level elevated R77.8 CKD (chronic kidney disease) N18.9 Chronic kidney disease stage: unspecified stage Acute on chronic diastolic CHF (congestive heart failure) I50.33 Hypertension I10 Uncontrolled diabetes mellitus E11.65 NSTEMI (non-ST elevated myocardial infarction) I21.4
[2021-08-31 07:59] LABS: Glucose Point of Care 173 mg/dL (70-110)
--- NOTE | 2021-08-31 08:12 | PM.PN ---
Subjective Subjective: Interval history: Seen this morning at bedside in presence of binder stripper machine. Serum ketones have been ordered and are pending. Patient is intubated sedated. Nursing staff did not report any acute events overnight except that her APTT was high with a heparin drip and all night we have been trying to titrate to PTT. She is still on insulin drip along with D10 drip. Anion gap has closed. Patient on minimal vent settings FiO2 35%. Vitals are stable. Urine output has been 0 overnight. Vitals/I&O/Wt Last Vital Signs Temp 98.4 F 08/31/21 14:49 Pulse 76 08/31/21 14:49 Resp 18 08/31/21 15:01 BP 125/62 08/31/21 14:49 Pulse Ox 96 08/31/21 15:01 08/31/21 08/31/21 08/31/21 06:59 14:59 22:59 Intake Total 416.064 / 714.340 112.412 / 112.412 Balance 416.064 / 714.340 112.412 / 112.412 Weight last 48 hrs Weight 74.644 kg Physical Exam Narrative: EXAM NARRATIVE: General: Intubated sedated HEENT: Normocephalic, atraumatic, breathing comfortably on the ventilator. Cardio: Regular rate rhythm, normal S1-S2, Respiratory: Transmitted breath sounds, no gross wheezes no rhonchi appreciated, generally clear to auscultation with mild crackles at bases bilaterally. GI: Abdomen soft, nontender, bowel sounds + Extremities: 2+ pitting edema b/l LE, lower extremity edema does seem slightly improved compared to admission Data : 08/31/21 12:46 08/31/21 05:30 Micro: Microbiology 08/30/21 15:45 MRSA Culture - Final Nose 08/30/21 14:35 Blood Culture - Preliminary Blood NEGATIVE TO DATE 08/30/21 14:32 Blood Culture - Preliminary Blood NEGATIVE TO DATE 08/30/21 10:30 Gram Stain - Final Sputum - Endotracheal Tube Aspirate Sputum Culture - Preliminary A&P Assessment and plan (1) Uncontrolled diabetes mellitus: Status: Acute (2) Hypertension: Status: Acute (3) Acute renal failure superimposed on chronic kidney disease: Status: Acute Qualifiers: Acute renal failure type: unspecified Chronic kidney disease stage: unspecified stage Qualified Code(s): N17.9 - Acute kidney failure, unspecified; N18.9 - Chronic kidney disease, unspecified (4) NSTEMI (non-ST elevated myocardial infarction): Status: Acute (5) Acute on chronic diastolic CHF (congestive heart failure): Status: Acute Additional A&P Information #Vent dependent acute hypoxic respiratory failure #Acute renal failure #Severe metabolic acidosis secondary to above, DKA, uremia? #Diabetic ketoacidosis #Acute on chronic diastolic HF #Chronic kidney disease, baseline creatinine 2-3 range. Creatinine up to 3.7 today. #Recent NSTEMI #Elevated D-dimer, pulmonary embolism not ruled out #Elevated lactic acid #Hyperkalemia - Recent echo from previous admission shows septal hypokinesia - She refused stress test and angiogram as per prevoius discharge summary - PE not ruled out by CTA due to CKD and elevated Cr. D-dimer high at 1.1. Unable to check VQ scan since patient is now intubated and sedated. Due to renal failure and high risk of worsening kidney function due to contrast-induced nephropathy we will hold off on doing CTA at this time. - BNP 32304 today, CXR from admission shows b/l pleural effusions -Patient received Lasix 80x1 at admission. -Place Dickson catheter, vent management by pulmonary critical care ?Cardiology on board. Echocardiogram report pending but EF reported to be 45% verbally by cyber intelligence analyst who reviewed. Venous Dopplers negative for DVT. - Strict I/O -Heparin drip has been turned off since hemoglobin dropped to 7.7 this morning. We have ordered FOBT. -Central line placed right femoral region, dialysis catheter placed left femoral region by Dr. Layne.08/30 ?Nephrology on board and following. Patient has been started on Lasix drip by nephrology. Cardiology plans to take patient for angiogram today. Further management after results. -If serum ketones negative will bridge to Lantus and turn off insulin drip. We will start feeds with Glucerna. -Patient on minimal vent settings. Plan for potential extubation in a.m. -Blood culture negative to date, MRSA nares swab negative. Continue patient on cefepime and metronidazole for her chronic cholecystitis. ?Covid PCR is negative.. -CT head negative for intracranial bleed. - Will go for cath today and subsequently for dialysis. #DM -Management as per above. #Hx of Gastroparesis -On Reglan at home. Full Code DVT PPX: on Heparin drip I will calll and update daughter today after cath is done. Attestations Medical Necessity Statement*: > 48 hour stay. Pt intubated. Coding Level of Care Code Acute Restaurant Inspector for g Fwd Diagnoses Uncontrolled diabetes mellitus E11.65 Hypertension I10 Acute renal failure superimposed on chronic kidney disease N17.9; N18.9 Acute renal failure type: unspecified Chronic kidney disease stage: unspecified stage NSTEMI (non-ST elevated myocardial infarction) I21.4 Acute on chronic diastolic CHF (congestive heart failure) I50.33
--- NOTE | 2021-08-31 08:20 | PM.PN ---
Subjective Subjective: Interval history: responsive on vent Medications: Reviewed: Yes Medication Review Details: Current Medications Acetaminophen (Acetaminophen 325 Mg Tablet) 650 mg PO Q6H PRN PRN Reason: Mild/Mod Pain Or Temp >/= 101 Albuterol/Ipratropium (Ipratropium-Albuterol 3 Ml Neb) 3 ml INHALATION Q4H.RESPIRATORY PRN 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 Last Admin: 08/31/21 07:42 Dose: 3 ml Documented by: Aspirin (Aspirin 81 Mg Chew Tablet) 81 mg PO DAILY [facility] Last Admin: 08/30/21 18:29 Dose: Not Given Documented by: Atorvastatin Calcium (Atorvastatin 40 Mg Tablet) 40 mg PO BEDTIME [facility] Last Admin: 08/30/21 21:46 Dose: 40 mg Documented by: Clopidogrel Bisulfate (Clopidogrel 75 Mg Tablet) 75 mg PO DAILY [facility] Last Admin: 08/30/21 18:30 Dose: Not Given Documented by: Dextrose (Dextrose 50% Syringe 50 Ml) 25 ml IVP ONCE PRN; Protocol PRN Reason: hypoglycemia protocol Dextrose (Dextrose 50% Syringe 50 Ml) 50 ml IVP PRN PRN; Protocol PRN Reason: hypoglycemia protocol Dextrose (Dextrose 50% Syringe 50 Ml) 25 ml IVP ONCE PRN; Protocol PRN Reason: hypoglycemia protocol Dextrose (Dextrose 50% Syringe 50 Ml) 50 ml IVP PRN PRN; Protocol PRN Reason: hypoglycemia protocol Glucagon (Glucagon 1 Mg/Ml Inj 1 Ml) 1 mg IM ONCE PRN; Protocol PRN Reason: Adult Acute Hypoglycemia Prot. Glucagon (Glucagon 1 Mg/Ml Inj 1 Ml) 1 mg IM ONCE PRN; Protocol PRN Reason: Adult Acute Hypoglycemia Prot Hydralazine HCl (Hydralazine 50 Mg Tablet) 50 mg PO TID [facility] Last Admin: 08/30/21 15:15 Dose: Not Given Documented by: Dextrose (D5w) 500 mls @ 100 mls/hr IV ONCE PRN; Protocol PRN Reason: Adult Acute Hypoglycemia Prot Metronidazole (Flagyl Iv) 500 mg in 100 mls @ 100 mls/hr IV Q8H [facility]; Protocol Last Infusion: 08/31/21 01:12 Dose: Infused Documented by: Fentanyl 1,000 mcg/ Sodium (Chloride) 100 mls @ 0 mls/hr IV .Q0M ALYSSA; Protocol Norepinephrine Bitartrate 4 mg (/ Dextrose) 254 mls @ 0 mls/hr IV .Q0M [facility]; Protocol Dextrose (D5w) 500 mls @ 100 mls/hr IV ONCE PRN; Protocol PRN Reason: Adult Acute Hypoglycemia Prot Insulin Human Regular 250 unit (/ Sodium Chloride) 252.5 mls @ 0 mls/hr IV .Q0M ALYSSA; Protocol Last Titration: 08/31/21 06:35 Dose: 2 unit/hr, 2.02 mls/hr Documented by: Propofol (Diprivan) 1,000 mg in 100 mls @ 0 mls/hr IV .Q0M ALYSSA; Protocol Last Admin: 08/31/21 02:46 Dose: 20 mcg/kg/min, 9.53 mls/hr Documented by: Cefepime HCl 2,000 mg/ Sodium (Chloride) 50 mls @ 100 mls/hr IV Q24H [facility]; Protocol Last Infusion: 08/31/21 00:43 Dose: Infused Documented by: Dextrose (D10w) 1,000 mls @ 30 mls/hr IV .Q24H [facility] Last Admin: 08/30/21 18:16 Dose: 20 mls/hr Documented by: Insulin Glargine (Insulin Glargine 100 Units/1 Ml) 10 unit SUBCUT BID [facility] Insulin Human Lispro (Insulin Lispro 100 Unit/1 Ml) 0 unit SUBCUT WM&BEDTIME [facility]; Protocol Last Admin: 08/30/21 21:46 Dose: Not Given Documented by: Isosorbide Mononitrate (Isosorbide Mononitrate Er 30 Mg Tablet) 30 mg PO BID [facility] Last Admin: 08/31/21 07:43 Dose: Not Given Documented by: Lorazepam (Lorazepam 0.5 Mg Tablet) 0.5 mg PO TID PRN PRN Reason: Anxiety Last Admin: 08/30/21 06:47 Dose: 0.5 mg Documented by: Metoprolol Succinate (Metoprolol Succinate Er (24 Hr) 25 Mg Tablet) 25 mg PO DAILY [facility] Last Admin: 08/30/21 15:14 Dose: Not Given Documented by: Morphine Sulfate (Morphine 4 Mg/Ml Sdv 1 Ml) 2 mg IVP Q4H PRN PRN Reason: SEVERE PAIN Ondansetron HCl (Ondansetron 2 Mg/Ml Sdv 2 Ml) 4 mg IVP Q6H PRN PRN Reason: NAUSEA AND VOMITING Last Admin: 08/29/21 18:12 Dose: 4 mg Documented by: Pantoprazole Sodium (Pantoprazole Dr 40 Mg Tablet) 40 mg PO DAILY [facility] Last Admin: 08/30/21 18:29 Dose: Not Given Documented by: Pantoprazole Sodium (Pantoprazole 40 Mg Sdv) 40 mg IVP Q12H [facility] Last Admin: 08/31/21 03:34 Dose: 40 mg Documented by: Sodium Bicarbonate (Sodium Bicarbonate 650 Mg Tablet) 650 mg PO TID [facility] Last Admin: 08/29/21 21:19 Dose: 650 mg Documented by: Venlafaxine HCl (Venlafaxine Er (24hr) 75 Mg Capsule) 75 mg PO DAILY [facility] Vitals/I&O/Wt Last Vital Signs Temp 99.3 F 08/31/21 04:00 Pulse 89 08/31/21 07:49 Resp 18 08/31/21 07:49 BP 112/55 08/31/21 06:15 Pulse Ox 97 08/31/21 07:49 08/30/21 08/31/21 08/31/21 22:59 06:59 14:59 Intake Total 168.623 / 298.276 416.064 / 714.340 0 / 0 Balance 168.623 / 298.276 416.064 / 714.340 0 / 0 Weight last 48 hrs Weight 74.644 kg Weight 79.379 kg Physical Exam Narrative: EXAM NARRATIVE: vs noted vent vc/ac/fio2=35%/ RR18/ TV 350/ PEEP 5 heent- nc/at, eomi, anicteric neck supple lungs coarse b/l heart- rrr, + s1, s2 abd soft, nt, nd ext b/l edema neuro- sedated, responsive Data : 08/31/21 05:30 08/31/21 05:30 Micro: Microbiology 08/30/21 10:30 Gram Stain - Final Sputum - Endotracheal Tube Aspirate 08/30/21 14:32 Blood Culture - Preliminary Blood SPECIMEN COLLECTED 08/30/21 14:35 Blood Culture - Preliminary Blood SPECIMEN COLLECTED A&P Additional A&P Information 1. Renal failure MYNOR- On admission serum creatinine 3.3 now increasing to 3.8 mg/dl in the setting of acute respiratory failure. Chronic kidney disease lstage 3b/ 4- baseline cr 2.4-3 mg/dl -secondary to advanced diabetic and hypertensive glomerulopathy. Dose medication for GFR less than 15 Avoid usual nephrotoxic agents 2. Anion gap metabolic acidosis- from MYNOR, DKA, mild Lactic acidosis- level only 3- improved to 1.6 -currently compensated from vent 3. Hypocalcemia normal after correction for low albumin. check vit d, pth 4. Respiratory failure Management per ICU team -will give lasix 4. Recent non-STEMI Management per cardiology, may need angiogram. Following angiogram, she is also at high risk of requiring hemodialysis. -if cardiology feels that she needs that she needs a cath, then will dialyze afterwards 5. anemia -limit RAMON w/ AMI -send iron studies discussed w/ Dr. Taylor Patient seen and examined via telemedicine, with the assistance of the bedside RN > 25 min spent in evaluation and mgmt of patient Attestations Medical Necessity Statement*: vdrf, mynor, ckd, NSTEMI, anemia- critically ill Time Spent in Patient Care: Greater than 35 minutes Coding Level of Care Code Acute Sales Development Director for Vikas Osorio
--- NOTE | 2021-08-31 08:30 | PC.NURSE ---
AM meds held yesterday per Dr Demarco. Dr Demarco questioned regarding AM med wishes for today. Dr Demarco stated she spoke with poultry culler and he would like Imdur held but specifically requested Aspirin, Plavix, Metoprolol, and Hydralazine administered.
--- NOTE | 2021-08-31 08:35 | PC.NURSE ---
Heparin gtt stopped per Dr Demarco.
--- NOTE | 2021-08-31 08:37 | US_ITS ---
WS: [id number] RENAL ULTRASOUND HISTORY: kevin COMPARISON: None available. TECHNIQUE: 2-D and color Doppler imaging of the kidney submitted. Right kidney: 10.2 cm x 3.9 cm x 4.7 cm. Normal size with no hydronephrosis. There is an exophytic cyst from the superior pole measuring 1.3 x 0.8 x 0.8 cm. No solid mass. Left kidney: 10.0 cm x 4.0 cm x 5.5 cm. Normal size kidney. No hydronephrosis. Large simple cyst from the inferior kidney measures 3.6 x 3.8 x 3.8 cm. There are additional smaller cortical based cysts. No solid mass. Aorta: Normal. Urinary Bladder: Dickson catheter present in a nondistended bladder. US/US renal BI* [id number] IMPRESSION: 1. No hydronephrosis or cortical thinning. 2. Bilateral renal cysts.
[2021-08-31 09:11] LABS: Ketone (Acetest) Serum Negative (Negative)
[2021-08-31 09:20] LABS: Uric Acid 10.2 mg/dL (2.4-5.7)
--- NOTE | 2021-08-31 09:43 | P.PN_ITS ---
Subjective Subjective: Interval history: - Patient seen at bedside today -Intubated and ventilated---saturating 93% on FiO2 35% -DKA resolved and glucose were negative.-Plan is to discontinue insulin and start on tube feeding and subcutaneous insulin - Today he underwent cardiac cath which showed severe multivessel disease coronary artery disease and cardiology recommended CT surgery evaluation for CABG -Both cardiac cath-patient underwent 1 session of hemodialysis -Patient will be made by hospitalist to transfer patient for CT surgery -Labs and imaging reviewed Medications: Reviewed: Yes Vitals/I&O/Wt Last Vital Signs Temp 99.3 F 08/31/21 04:00 Pulse 89 08/31/21 07:49 Resp 18 08/31/21 07:49 BP 112/55 08/31/21 06:15 Pulse Ox 97 08/31/21 07:49 08/30/21 08/31/21 08/31/21 22:59 06:59 14:59 Intake Total 168.623 / 298.276 416.064 / 714.340 0 / 0 Balance 168.623 / 298.276 416.064 / 714.340 0 / 0 Weight last 48 hrs Weight 164 lb 9 oz Weight 175 lb Physical Exam Narrative: EXAM NARRATIVE: PHYSICAL EXAM: General: lying in bed, sedated and intubated. HEENT:NCAT, PERRLA, EOMI Neck: Supple Lungs: Clear, decreased breath sounds in bilateral bases Heart: s1/s2, RRR Abd: soft, NT, ND, BS + Normoactive Extremities: No edema ENAMEL SHADER: sedated and limited ENAMEL SHADER exam possible. SKIN: no rash LDA: # CVC: Right femoral CVC 08/30/2021 # HD Cath : Left femoral 08/30/2021 # Dickson: 08/30/2021 Data : 08/31/21 12:46 08/31/21 05:30 Other Labs: Laboratory Results WBC 16.8 10^3/uL (4.0-10.0) H 08/31/21 05:30 Corrected WBC Cancelled 08/31/21 03:30 RBC 2.67 10^6/uL (4.1-5.3) L 08/31/21 05:30 Hgb 8.4 g/dL (11.5-15.3) L 08/31/21 12:46 Hct 27.3 % (37.0-47.0) L 08/31/21 12:46 MCV 92.1 fl (81-99) 08/31/21 05:30 MCH 28.8 pg (28.0-34.0) 08/31/21 05:30 MCHC 31.3 g/dL (30.0-36.0) D 08/31/21 05:30 RDW 14.0 % (12.1-15.1) 08/31/21 05:30 Plt Count 381 10^3/cmm (130-400) 08/31/21 05:30 MPV 10.9 fL (7.4-10.4) H 08/31/21 05:30 Gran % Cancelled 08/31/21 03:30 Neut % (Auto) 73.2 % 08/31/21 05:30 Lymph % (Auto) 14.4 % 08/31/21 05:30 Fergus % (Auto) 9.9 % 08/31/21 05:30 Eos % (Auto) 1.3 % 08/31/21 05:30 Baso % (Auto) 0.5 % 08/31/21 05:30 Neut # (Auto) 12.33 10^3/uL (1.8-7.7) H 08/31/21 05:30 Lymph # (Auto) 2.4 10^3/uL (0.8-4.8) 08/31/21 05:30 Fergus # (Auto) 1.7 10^3/uL (0.2-0.9) H 08/31/21 05:30 Eos # (Auto) 0.2 10^3/uL (0.0-0.8) 08/31/21 05:30 Baso # (Auto) 0.1 10^3/uL (0.0-0.1) 08/31/21 05:30 Absolute Gran (auto) Cancelled 08/31/21 03:30 Nucleated RBC % (auto) 0 % 08/31/21 05:30 Nucleated RBCs # 0.0 /100WBC 08/31/21 05:30 PT 14.60 SECONDS (12.1-14.9) 08/30/21 05:12 INR 1.11 (0.8-1.2) 08/30/21 05:12 APTT 32.7 SECONDS (23.9-36.7) D 08/31/21 12:46 D-Dimer 1.16 ug/mIFEU (0-0.59) H 08/29/21 20:48 Specimen Type Arterial 08/31/21 04:48 Sample Site Radial,right 08/31/21 04:48 ABG pH 7.43 (7.35-7.45) 08/31/21 04:48 ABG pCO2 30.9 mmHg (35-45) L 08/31/21 04:48 ABG pO2 72.3 mmHg (80.0-100.0) L 08/31/21 04:48 ABG HCO3 20.6 mmol/L (22-26) L 08/31/21 04:48 ABG O2 Saturation 96.5 08/31/21 04:48 ABG Base Excess -3.2 mmol/L (-2.0-2.0) L 08/31/21 04:48 Tj Test pos 08/31/21 04:48 A-a O2 Gradient 134.2 mmHg (5-10) H 08/31/21 04:48 Hematocrit 22.2 % (37-47) L 08/31/21 04:48 Hgb O2 Saturation 95.3 % (95-100) 08/31/21 04:48 Carboxyhemoglobin 0.7 %THgb (0.4-20.1) 08/31/21 04:48 Methemoglobin 0.5 % (0.4-1.5) 08/31/21 04:48 Total Hemoglobin 7.2 g/dL (12-16) L 08/31/21 04:48 Sodium 141.0 mmol/L (131-143) 08/31/21 04:48 Potassium 3.7 mmol/L (3.5-5.0) 08/31/21 04:48 Glucose 197.0 mg/dL (70-115) H 08/31/21 04:48 Ionized Calcium 1.2 mmol/L (1.1-1.4) 08/31/21 04:48 O2 Delivery Device vent 08/31/21 04:48 FiO2 35.0 % 08/31/21 04:48 Tidal Volume 0.35 08/30/21 10:30 PEEP 5.0 cmH20 08/30/21 10:30 Foot Specialist ID micheal 08/31/21 04:48 Blood Gas Notified Time 0508/31/21 04:48 Sodium 137 mmol/L (136-145) 08/31/21 05:30 Potassium 3.9 mmol/L (3.5-5.1) 08/31/21 05:30 Chloride 102 mmol/L (98-107) 08/31/21 05:30 Carbon Dioxide 21 mmol/L (22-29) L 08/31/21 05:30 Anion Gap 17.9 (5-19) 08/31/21 05:30 BUN 50 mg/dL (8-23) H 08/31/21 05:30 Creatinine 3.8 mg/dL (0.5-0.9) H 08/31/21 05:30 GFR Calculation 11.8 mL/min (90-130) L 08/31/21 05:30 Glucose 166 mg/dL (65-115) H 08/31/21 05:30 POC Glucose 126 mg/dL (70-110) H 08/31/21 15:38 Calculated Osmolality 301 mOsm/kg (285-295) H 08/31/21 05:30 Lactate 1.6 mmol/L (0.5-2.2) 08/31/21 05:30 Uric Acid 10.2 mg/dL (2.4-5.7) H 08/31/21 08:19 Calcium 7.6 mg/dL (8.5-10.5) L 08/31/21 05:30 Phosphorus 5.0 mg/dL (2.5-4.5) H 08/30/21 05:12 Magnesium 2.0 mg/dL (1.7-2.3) 08/31/21 05:30 Total Bilirubin 0.2 mg/dL (0.15-1.2) 08/31/21 05:30 AST 156 U/L (0-32) H 08/31/21 05:30 ALT 47 U/L (0-33) H 08/31/21 05:30 Alkaline Phosphatase 230 IU/L (35-105) H 08/31/21 05:30 Troponin T Baseline 1177 ng/L (0-10) H* 08/29/21 11:42 Troponin T 120 Minute 1240 ng/L (0-10) H 08/29/21 13:36 Delta Troponin T 63 ABS# (0-10) H* 08/29/21 13:36 Troponin T Hi Sens 6Hr 1083 ng/L (0-10) H 08/29/21 18:10 Troponin T Hi Sens 6Hr Delta -94 ng/L (0-12) L 08/29/21 18:10 C-Reactive Protein 35.0 mg/L (0.0-4.9) H 08/30/21 05:12 NT-Pro-B Natriuret Pep 47305 pg/mL (0-125) H 08/29/21 11:42 Total Protein 4.6 g/dL (6.6-8.7) L 08/31/21 05:30 Albumin 2.4 g/dL (3.5-5.2) L 08/31/21 05:30 Globulin 2.2 g/dL (1.3-4.6) 08/31/21 05:30 Procalcitonin 0.50 ng/mL (0-0.5) 08/29/21 11:42 Urine Color Yellow (Yellow) 08/30/21 15:45 Urine Appearance Hazy (CLEAR) A 08/30/21 15:45 Urine pH 5 (5-7) 08/30/21 15:45 Ur Specific Gerry 1.020 (1.005-1.030) 08/30/21 15:45 Urine Protein 3+ (Negative) H 08/30/21 15:45 Urine Glucose (UA) 2+ (Normal) H 08/30/21 15:45 Urine Ketones 1+ (Negative) H 08/30/21 15:45 Urine Blood 2+ (Negative) H 08/30/21 15:45 Urine Nitrate Negative (Negative) 08/30/21 15:45 Urine Bilirubin Neg (Negative) 08/30/21 15:45 Urine Urobilinogen Norm mg/dL (Negative) 08/30/21 15:45 Ur Leukocyte Esterase 2+ (Negative) H 08/30/21 15:45 Urine RBC 10-15 /hpf (0-2) H 08/30/21 15:45 Urine WBC 25-40 /hpf (0-5) H 08/30/21 15:45 Ur Squamous Epith Cells 5-10 /hpf (0-5) H 08/30/21 15:45 Amorphous Sediment Not Reportable 08/30/21 15:45 Urine Bacteria 3+ /hpf (NONE) H 08/30/21 15:45 Serum Ketones Negative (Negative) 08/31/21 08:19 Nasal/Oral COVID-19 PCR Not detected 08/29/21 12:29 Hep Bs Antigen Non-reactive (Nonreactive) 08/31/21 12:46 Hep Bs Antibody 3.5 (11.5-1000) L 08/31/21 12:46 Hepatitis C Antibody Non-reactive (Nonreactive) 08/31/21 12:46 SARS-CoV-2 Ag (Rapid) Negative (Negative) 08/29/21 12:[address] 08/30/21 16:11 IMPRESSION: No acute intracranial abnormality. Radiation Dose CTDIVOL = (mGy): DLP = 746.87 (mGy-cm) Chest X-Ray 08/31/21 04:00 IMPRESSION: 1. Interval worsening in bilateral airspace disease, left greater than right. 2. Bilateral pleural effusions. Radiation Dose CTDIVOL = (mGy): DLP = (mGy-cm) Renal Ultrasound 08/31/21 08:37 IMPRESSION: 1. No hydronephrosis or cortical thinning. 2. Bilateral renal cysts. Diagnostic Cath Status: Urgent Diagnostic Findings * Mid Circumflex to Distal Circumflex: severe 90% stenosis, TAQU[place]: 3 flow. Diffuse disease. * First diagonal artery is large in size * and is almost * dual * LAD system. 1st Diagonal: severe 90% stenosis, TAQUERIA: 3 flow. * OM1 is a large vessel. First Obtuse Marginal Branch Segment: obstructive 70% stenosis, TAQUERIA: 3 flow. * Engineering Supplies Sales indication: 65-year-old woman who had recent admission to the hospital with non-ST elevation [place] and was discharged with plans for outpatient stress test, coronary angiogram was not performed secondary to risk of contrast-induced nephropathy. She presented again to the hospital with shortness of breath, nausea and vomiting. She was found to be in DKA. Her respiratory status worsened and she was intubated. Her kidney function has been worsening. After consultation with nephrology, plan for coronary angiogram which will be followed with dialysis session. * Left Main has no disease. * Mid Left Anterior Descending: mild 40% stenosis, TAQUERIA: 3 flow. * Proximal Right Coronary Artery: significant 75% stenosis, TAQUERIA: 3 flow. * Mid Right Coronary Artery to Distal Right Coronary Artery: significant 80% stenosis, TAQUERIA: 3 flow. * Posterior Descending Right: significant 80% stenosis, TAQUERIA: 3 flow. * Coronary angiography shows right dominance. Conclusions 1. There is severe coronary artery disease with multivessel disease. Micro: Microbiology 08/30/21 10:30 Gram Stain - Final Sputum - Endotracheal Tube Aspirate 08/30/21 14:32 Blood Culture - Preliminary Blood SPECIMEN COLLECTED 08/30/21 14:35 Blood Culture - Preliminary Blood SPECIMEN COLLECTED A&P Assessment and plan (1) Difficult ventilator weaning: Status: Acute (2) AMS (altered mental status): Status: Acute Qualifiers: Altered mental status type: unspecified Qualified Code(s): R41.82 - Altered mental status, unspecified (3) Respiratory failure: Status: Acute Qualifiers: Chronicity: acute on chronic Respiratory failure complication: unspecified whether with hypoxia or hypercapnia Qualified Code(s): J96.20 - Acute and chronic respiratory failure, unspecified whether with hypoxia or hypercapnia (4) Acute on chronic diastolic CHF (congestive heart failure): Status: Acute (5) NSTEMI (non-ST elevated myocardial infarction): Status: Acute (6) DKA (diabetic ketoacidosis): Status: Acute Qualifiers: Diabetes mellitus type: type 2 Diabetes mellitus complication detail: without coma Qualified Code(s): E11.10 - Type 2 diabetes mellitus with ketoacidosis without coma (7) Acute renal failure superimposed on chronic kidney disease: Status: Acute Qualifiers: Acute renal failure type: unspecified Chronic kidney disease stage: unspecified stage Qualified Code(s): N17.9 - Acute kidney failure, unspecified; N18.9 - Chronic kidney disease, unspecified (8) CKD (chronic kidney disease): Status: Acute Qualifiers: Chronic kidney disease stage: unspecified stage Qualified Code(s): N18.9 - Chronic kidney disease, unspecified (9) CAD in [place] artery: Status: Acute #Altered mental status-likely secondary to DKA/hypoxic respiratory failure/uremic encephalopathy in the setting of worsening MYNOR #Acute hypoxic respiratory failure-secondary to bilateral pleural effusions in the setting of acute on chronic diastolic dysfunction and superimposing DKA #Severe multivessel CAD on cardiac cath 1124 in patient with acute on chronic diastolic CHF #Acute on chronic CKD-secondary to uncontrolled longstanding diabetes and hypertension/cardiorenal in the setting of acute CHF in multivessel CAD patient #Diabetic ketoacidosis-resolved #Ventilator management -Overall patient appears noncompliant with her overall care and seems to be having longstanding uncontrolled diabetes with A1c 12.6 on 08/12/2021 and with documented history of refusing several investigations including stress test for possible underlying NSTEMI and follow-up with nephrology in the setting of MYNOR -I feel her respiratory distress upon admission could be secondary to worsening DKA and bilateral pleural effusions secondary to acute on chronic diastolic dysfunction nuclear multivessel CAD -Also patient has worsening MYNOR-likely cardiorenal -Currently intubated and on CMV mode 350/14/35%/PEEP 5; -ABG 7.43/30/72/20/96% -Currently sedated with fentanyl and propofol; avoid Versed if possible; CT head negative -Patient follows commands and moves upper extremities-off sedation -Once underlying issues leading to her fluid overload are addressed which depends on cardiology/nephrology plan for further interventions either diuresis/hemodialysis which might help resolve bilateral pleural effusions-will slowly wean off sedation and assess her mentation and then perform breathing trial to evaluate for possible extubation in 1 to 2 days -Cardiology performed cardiac cath today which showed multivessel CAD-and recommended surgery evaluation for CABG ; unfortunately as we do not have CT surgery services available in the days-hospitalist is attempting to transfer patient to [facility] -Patient H&H dropped gradually and so heparin was discontinued based on c ardiology recommendations - patient already on aspirin, statin, Plavix, beta-shanthi, Imdur -Venous Doppler negative for DVT -Patient continues to be oliguric-and received contrast during cardiac cath- underwent first session of hemodialysis -Also nephrology on board for MYNOR on CKD-can very well be secondary to cardiorenal syndrome -DKA resolved-symptoms negative-plan is to discontinue insulin drip and bridged with subcutaneous insulin and started on NG feeding Glucerna at 30 mils per hour -DVT prophylaxis; compression stockings -PPI for GI prophylaxis as patient is intubated and mechanically ventilated -Full code -Prognosis-guarded -NOK updated by hospitalist taking care of the patient Recommendations conveyed to hospitalist, RN, RT taking care of the patient Attestations Medical Necessity Statement*: Plan is to transfer patient to [facility] for CT surgery evaluation of CABG Time Spent in Patient Care: Greater than 35 minutes (>than 50% of time spent in counselling and/or direct pt care on unit) . Critical Care Time: The high probability of a clinically significant, sudden or life threatening deterioration of the patient's [pulmonary, renal, cardiology, endocrine] system(s) required my full and direct attention, intervention and personal management. The critical care time is as shown. This time is in addition to time spent performing any reported procedures but includes the following: [x] Data and vital sign review and interpretation [x] Patient assessment, examination and intervention [x] Documentation [x] Medication orders and management Critical Care Time (min): 45 Coding Level of Care Code Established Pt Acute Cosmetic Assembler for Chg Fwd Patient Type Established History Comprehensive Exam Comprehensive Medical Decision Making High Complexity Diagnoses Difficult ventilator weaning Z99.11 AMS (altered mental status) R41.82 Altered mental status type: unspecified Respiratory failure J96.20 Chronicity: acute on chronic Respiratory failure complication: unspecified whether with hypoxia or hypercapnia Acute on chronic diastolic CHF (congestive heart failure) I50.33 NSTEMI (non-ST elevated myocardial infarction) I21.4 DKA (diabetic ketoacidosis) E11.10 Diabetes mellitus type: type 2 Diabetes mellitus complication detail: without coma Acute renal failure superimposed on chronic kidney disease N17.9; N18.9 Acute renal failure type: unspecified Chronic kidney disease stage: unspecified stage CKD (chronic kidney disease) N18.9 Chronic kidney disease stage: unspecified stage CAD in [place] artery I25.10 Time Spent (min) 45
[2021-08-31] MEDS: FUROsemide 100 MG in sodium chloride 0.9% 40 ML IV (09:48)
[2021-08-31] MEDS: clopidogrel 75 mg Tablet PO (09:59)
[2021-08-31] MEDS: aspirin 81 mg Chew Tablet PO (09:59)
[2021-08-31] MEDS: FUROsemide 10 mg/mL SDV 4mL 40 MG IVP (09:59)
--- NOTE | 2021-08-31 10:01 | PC.CHAP ---
Pastoral Care Encounter/Spiritual Assessment Type of Contact [] Declined forest products gatherer visit [] Patient/Family/Request visit [] Outpatient visit [] Follow-up visit [] Physician referral [] Code/Alert [x] Routine visit [] Staff referral [] Actively dying [] Patient sleeping [] Family support [] [] Out of room [] Palliative care [] [x] Receiving care in room [] Pre-surgical visit [] Trauma [] Long length of stay [x] ICU visit [x] Other:doctors and nurses present Relational/Emotional Strength [] Patient feels connected with others/family/visitors/staff [] Distress [] Loneliness/isolation [] Abandonment Spirituality of Patient [] Person of Annabel [] Attends Zoroastrian of their Annabel [] Believes in Prayer [] Reads Bible or Bahai materials [] There are Spiritual issues to be addressed Wood Chopper Interventions [x] Prayer [] Active listening [] Non-anxious presence [] Spiritual/emotional support [] Crisis/trauma care [] Spiritual counseling [] Bereavement support [] Provided bereavement packet [] Provided Bible/devotional materials [] Provided toy/stuffed animal, coloring book to patient or family member [] Provided Communion [] Anointing/[place] [] Salvation [x] Completed spiritual assessment [] Other: Impact on Illness or Injury [] Angry [] Fearful [] Anxious [] Often cries [] Exhaustion [] Unable to work [] Unable to attend congregational [] Unable to walk/stand [] Unable to read [] Unable to drive [] Unable to eat/drink [] Unable to sleep [] Unable to be with family [] Patient intubated [] Other: Summary Time spent with patient
[2021-08-31 10:37] LABS: Glucose Point of Care 145 mg/dL (70-110)
[2021-08-31 10:37] LABS: Glucose Point of Care 149 mg/dL (70-110)
[2021-08-31 10:37] LABS: Glucose Point of Care 156 mg/dL (70-110)
[2021-08-31] MEDS: metoprolol tartrate 25 mg Tablet 12.5 MG PO ×2 (10:40→21:02)
--- NOTE | 2021-08-31 11:19 | XACV_ITS ---
Exam Room: [facility] Gender: Female : 1955 Exam Priority: Routine Procedure(s): Procedure Description: Diagnostic procedure Procedure Description: Coronary angiogram Diagnostic Cath Status: Urgent Diagnostic Findings * Mid Circumflex to Distal Circumflex: severe 90% stenosis, TAQUERIA: 3 flow. Diffuse disease. * First diagonal artery is large in size * and is almost * dual * LAD system. 1st Diagonal: severe 90% stenosis, TAQUERIA: 3 flow. * OM1 is a large vessel. First Obtuse Marginal Branch Segment: obstructive 70% stenosis, TAQUERIA: 3 flow. * Direct Support Specialist indication: 65-year-old woman who had recent admission to the hospital with non-ST elevation [place] and was discharged with plans for outpatient stress test, coronary angiogram was not performed secondary to risk of contrast-induced nephropathy. She presented again to the hospital with shortness of breath, nausea and vomiting. She was found to be in DKA. Her respiratory status worsened and she was intubated. Her kidney function has been worsening. After consultation with nephrology, plan for coronary angiogram which will be followed with dialysis session. * Left Main has no disease. * Mid Left Anterior Descending: mild 40% stenosis, TAQUERIA: 3 flow. * Proximal Right Coronary Artery: significant 75% stenosis, TAQUERIA: 3 flow. * Mid Right Coronary Artery to Distal Right Coronary Artery: significant 80% stenosis, TAQUERIA: 3 flow. * Posterior Descending Right: significant 80% stenosis, TAQUERIA: 3 flow. * Coronary angiography shows right dominance. Conclusions 1. There is severe coronary artery disease with multivessel disease. Recommendations * Transferred back to ICU. * Patient has severe multivessel coronary artery disease. She will benefit from heart team discussion and CT surgery evaluation for potential CABG. Unfortunately our CT surgery team is not available this week. PCI will require multiple stents and will lead to worsening of renal function with possible pulmonary dialysis.. * Continue anticoagulation. * Transfer to Center with CT surgery availability. Diagnostic RX Recommendation: CABG Clinical Evaluation EBL: 5mL-10mL Procedural Details Procedure Consent Obtained. Pre-Procedure Time Out. Identified patient by full name and date of as verbalized by the patient/guarantor. Does the consent match the physician's order: Yes. Accurate & Complete Informed Consent: Yes. Inpatient/Outpatient History & Physical on Chart: Yes. If H&P is completed, is and addenduem needed: No; If yes, is the addendum complete: N/A. Visualize and Verify Site with Patient/Guarantor: N/A. Relevant Radiology Images available: Yes. Pre-op teaching completed and patient verbalized understanding. The risks, benefits, and alternatives of sedation and/or procedure were discussed by physician. The patient agrees to continue. Procedure started. [facility] Clinical Fraility Score: 6: Moderately Frail. Direct Support Specialist Indications: CHF, NSTEMI. Chest Pain Symptom Assessment: Atypical Angina. Correct patient, site and procedure confirmed by cath team. Current diagnosis: NSTEMI. Patient arrived to slab installer on a ventilator and will be managed by respiratiory. IV Site on Arrival: 22 gauge in the right anticubital. Pre Procedural Pulses: bilateral dorsalis pedis was 2+. left groin was prepped with chloroprep then draped in the usual sterile fashion. Physician notified. Baseline sample Acquired. HR: 86 BPM. Physician arrived. Physician scrubbed in. Immediate Pre-Procedure Time Out. Correct Patient: Yes; Correct Procedure: Yes; Correct Site: Yes; Correct Patient Position: Yes; Correct Supplies: Yes; Dried Flammable Prep: Yes Blood Products Available: N/A. Cheryl Hutchinson RN nurse solution advisor during procedure. Arterial access obtained with micropuncture set. A 5 bahraini JL4 catheter in over wire. Multiple views taken of left coronary artery. Catheter out. A 5 bahraini JR4 catheter in over wire. Catheter out. ACT drawn. Results 82 seconds. Therapeutic limits - pre-heparin administration 90-150 seconds and monitoring heparin during a vascular procedure >250 seconds. Multiple views taken of right coronary artery. Physician scrubbed out. A Manual Compression was successful obtaining hemostatsis at the Left Femoral artery insertion site. Post Procedure: Pulses reassessed and unchanged. No VTE prophylaxis required. Medication's Wasted: Lidocaine 1% = 10 mL. Medication's Wasted: Heparin = 1000 u. Total IV fluids: 15 mL. Post-op diagnosis: CAD. Complications: none. Estimated blood loss: 5mL-10mL. Procedure completed. Vital chart was stopped. Access Site Site: Left Femoral artery Sheath Size: 6 Fr Hemostasis Method: Manual Compression Hemostasis Success: Successful I, the attending physician, have reviewed and verified all procedure medications. Yes, all medications given per verbal order Report Signatures Finalized by Dean Gilmore MD on 08/31/2021 04:51 PM
--- NOTE | 2021-08-31 11:32 | PC.NURSE ---
Pt transported to [facility] via staff
--- NOTE | 2021-08-31 11:47 | P.HPUD_ITS ---
Surgery/Procedure H&P Update DATE OF PROCEDURE: August 31, 2021 DATE H&P PERFORMED: 08/29/21 H&P UPDATE INFORMATION: I have reviewed H&P completed within last 30 days, I have examined patient prior to procedure and Changes to prior documentation as noted here CHANGES TO PREVIOUS DOCUMENTATION: Patient had recent non-ST elevation [place] with significant troponin elevation. She also had CHF exacerbation. Previously cardiac catheterization was not done as risk of NIURKA was significant. However has returned with volume overload that led to respiratory failure and intubation. She is not making any significant amount of urine, after discussion with family, prior discussion with patient when she was not intubated and nephrology decision has been made to proceed with coronary angiogram. Nephrology is planning to perform dialysis after the cardiac catheterization. Risk of NIURKA and permanent dialysis discussed with the patient's family (daughter) who understand and want to proceed with the procedure. Other risks and benefits of the procedure have been discussed with patient family understands. PREOP DIAGNOSIS: Non-ST elevation [place]/congestive heart failure PRIMARY INDICATION FOR PROCEDURE: Non-ST elevation [place]/congestive heart failure PLANNED PROCEDURE: Left heart cath with possible percutaneous coronary interve ntion PATIENT REASSESSED PRIOR TO SEDATION, WITH NO CHANGE NOTED: Yes PHYSICAL EXAM: not alert and not oriented x 3 (Patient is intubated and sedated)
[2021-08-31 12:46] LABS: Glucose Point of Care 146 mg/dL (70-110)
[2021-08-31 13:06] LABS: Glucose Point of Care 139 mg/dL (70-110)
[2021-08-31 13:06] LABS: Glucose Point of Care 146 mg/dL (70-110)
[2021-08-31] MEDS: insulin lispro 100 unit/1 mL SUBCUT ×2 (13:21→19:21)
[2021-08-31 13:37] LABS: Hematocrit 27.3 % (37.0-47.0); Hemoglobin 8.4 g/dL (11.5-15.3)
[2021-08-31 13:44] LABS: Partial Thromboplastin Time 32.7 SECONDS (23.9-36.7)
--- NOTE | 2021-08-31 14:06 | PC.NURSE ---
Addendum entered by Candie Richardson RN 08/31/21 14:09: Note should be timed for 1305. Original Note: Insulin gtt stopped per Dr Demarco's telephone order. 4 units of Humalog administered per protocol. Glucerna tube feeding started per Dr Celaya's order at a rate of 10mls/hr with a goal of 30mls/hr.
[2021-08-31 14:20] LABS: Hepatitis B Surface AB 3.5 (11.5-1000); Hepatitis B Surface Antigen Non-Reactive (Nonreactive); Hepatitis C Virus Antibody Non-Reactive (Nonreactive)
[2021-08-31 15:41] LABS: Glucose Point of Care 126 mg/dL (70-110)
[2021-08-31] MEDS: insulin glargine 100 units/1 mL 10 UNIT SUBCUT (16:06)
--- NOTE | 2021-08-31 16:33 | PC.NURSE ---
Glucerna tube feeding increased to 20mls/hr. Residual 5 mls. Pt tolerating well.
--- NOTE | 2021-08-31 16:41 | P.TS_ITS ---
Transfer Summary Providers Date of Admission: 08/29/21 15:01 Date of Discharge: 08/31/21 Attending Provider at Admission: Pattie Demarco MD Attending Provider at Transfer: Pattie Demarco MD Anticipated Date of Transfer: Anticipated date of transfer: 08/31/21 Receiving Facility & Provider: Receiving Provider: [Dr. Alvarez] Receiving facility: [[facility]] Diagnoses at Discharge Discharge Diagnosis (1) Uncontrolled diabetes mellitus: Status: Acute (2) Hypertension: Status: Acute (3) Acute renal failure superimposed on chronic kidney disease: Status: Acute Qualifiers: Acute renal failure type: unspecified Chronic kidney disease stage: unspecified stage Qualified Code(s): N17.9 - Acute kidney failure, unspecified; N18.9 - Chronic kidney disease, unspecified (4) NSTEMI (non-ST elevated myocardial infarction): Status: Acute (5) Acute on chronic diastolic CHF (congestive heart failure): Status: Acute Reason for Visit Reason for Visit: N/V, SOB Hospital Course Hospital Course HPI Cony Temple is a 65 year old female With past medical history of insulin- dependent type 2 diabetes, chronic kidney disease, hypertension, recent NSTEMI, COPD, suspected gastroparesis from prior admission who presented to the hospital today with complaint of shortness of breath. She states that she was not really doing anything at the time and was resting on her chair when she developed shortness of breath. She does state that she has chronic lower extremity edema especially pedal edema. She was placed on a water pill at her last admission. She was also asked to follow-up with nephrology because she had a kidney injury at the previous visit. She states that she was unable to follow-up with her PCP or nephrology so far but ended up in the hospital. She denies having any chest pain. She does have shortness of breath on exertion and feels that she cannot get the air in. She also states when she lies down the shortness of breath is worse but when she sits up it gets better. She has not had chest pain at all. Denies abdominal pain denies back pain. Is currently wearing 2 L nasal cannula but not on any oxygen at home. ED course: Blood pressure 197/104, respiratory 24, pulse 106, temperature 97.8, saturating 96%. BNP 45,000, first troponin XI 71, second troponin elevated. Delta troponin 64. EKG did show ST depression V3 V4. She was started on heparin drip. Creatinine 2.4 today. CTA not done to rule out PE due to high creatinine. Cardiology was consulted. Dr. Gilmore will see the patient. Chart review does show that the previous admission he had pulmonary edema, elevated troponin, severe hyperkalemia, MYNOR, anion gap respiratory metabolic acidosis, chronic cholecystitis. Patient was discharged on Augmentin with close follow-up with general surgery as an outpatient for her chronic cholecystitis. Echocardiogram was done which did show diffuse hypokinesia of anteroseptal segment with grade 4 diastolic dysfunction. Patient was medically managed as she did refuse to have an angiogram since she had an MYNOR and she was high risk for contrast-induced nephropathy. For patient's MYNOR her creatinine was 3.2 on discharge. She was put on sodium bicarb tablets and to follow-up with nephrology as an outpatient. She was placed on Lasix 40 daily. Patient also refused to have a stress test at the previous visit. Course: Next morning of admission Patient was found unresponsive in her room while on BiPAP. Rapid response was called. Patient was found to be in DKA. Blood sugar was found to be 500. ABG showed pH 7.1, potassium 6.1. She was tachypneic but responsive. She was taken to ICU and intubated for impending respiratory failure. She did follow commands and was able to squeeze her fingers and open her eyes. Central line was placed in right femoral region by Dr. Layne. She was intubated and sedated with fentanyl and Versed which was later discontinued and switched to fentanyl and propofol.. Daughter stated that prior to hospital visit patient was having nausea and was severely ill. However at time of admission patient did not mention nausea or vomiting either to the ER doctor or myself. Patient's main complaint was shortness of breath. she declined to have Dickson catheter at admission. Patient declined to have echo and venous Dopplers prior to rapid response being called. Anion gap closed. Patient was taken for angiogram today 08/31. Plan is to dialyze subsequently. She was also placed on Lasix drip by nephrology. Tentative plan for extubation in a.m. as patient is on minimal vent settings. Discussed angiogram results with cardiology. It is recommended that she be evaluated for CABG. She has multivessel disease. Cardiology discussed the situation with patient's daughter and decision was made to transfer to higher level of care. Daughter updated in person in icu at bedside. She is in agreement with transfer to [facility]. Angiogram results as follows: Diagnostic Cath Status: Urgent Diagnostic Findings * Mid Circumflex to Distal Circumflex: severe 90% stenosis, TAQUERIA: 3 flow. Diffuse disease. * First diagonal artery is large in size * and is almost * dual * LAD system. 1st Diagonal: severe 90% stenosis, TAQUERIA: 3 flow. * OM1 is a large vessel. First Obtuse Marginal Branch Segment: obstructive 70% stenosis, TAQUERIA: 3 flow. * Corporate Law Assistant indication: 65-year-old woman who had recent admission to the hospital with non-ST elevation AL and was discharged with plans for outpatient stress test, coronary angiogram was not performed secondary to risk of contrast-induced nephropathy. She presented again to the hospital with shortness of breath, nausea and vomiting. She was found to be in DKA. Her respiratory status worsened and she was intubated. Her kidney function has been worsening. After consultation with nephrology, plan for coronary angiogram which will be followed with dialysis session. * Left Main has no disease. * Mid Left Anterior Descending: mild 40% stenosis, TAQUERIA: 3 flow. * Proximal Right Coronary Artery: significant 75% stenosis, TAQUERIA: 3 flow. * Mid Right Coronary Artery to Distal Right Coronary Artery: significant 80% stenosis, TAQUERIA: 3 flow. * Posterior Descending Right: significant 80% stenosis, TAQUERIA: 3 flow. * Coronary angiography shows right dominance. Conclusions 1. There is severe coronary artery disease with multivessel disease. Recommendations * Transferred back to ICU. * Patient has severe multivessel coronary artery disease. She will benefit from heart team discussion and CT surgery evaluation for potential CABG. Unfortunately our CT surgery team is not available this week. PCI will require multiple stents and will lead to worsening of renal function with possible pulmonary dialysis.. * Continue anticoagulation. * Transfer to Center with CT surgery availability. Diagnostic RX Recommendation: CABG Echo limited 08/30 This is a limited echocardiogram performed to assess LV systolic function. LV systolic function is mildly reduced with EF of 45 to 50%. Mild global hypokinesis is seen. Prior echocardiogram from 08/25/2021, LV systolic function has reduced slightly Discharge diagnosis: #Vent dependent acute hypoxic respiratory failure #Acute renal failure, anuric - on dialysis session 1 today #Severe metabolic acidosis secondary to above, DKA, uremia? #Diabetic ketoacidosis - resolved #Acute on chronic diastolic HF #Chronic kidney disease, baseline creatinine 2-3 range. #Recent NSTEMI #Elevated D-dimer, pulmonary embolism not ruled out #Elevated lactic acid - resolved #Hyperkalemia - resolved #Multi-vessel coronary artery disease Physical Exam Narrative: EXAM NARRATIVE: General: Intubated sedated HEENT: Normocephalic, atraumatic, breathing comfortably on the ventilator. Cardio: Regular rate rhythm, normal S1-S2, Respiratory: Transmitted breath sounds, no gross wheezes no rhonchi appreciated, generally clear to auscultation with mild crackles at bases bilaterally. GI: Abdomen soft, nontender, bowel sounds + Extremities: 2+ pitting edema b/l LE, lower extremity edema does seem slightly improved compared to admission Left femoral central line in place, right femoral dialysis catheter in place TS Data Data Completed and Pending: Completed Studies During Hospitalization Category Date Time Status CT head wo con* [id number] Stat Cat Scan 08/30/21 16:11 Completed XR chest 1V lorna ble [id number] Routine Exams 08/31/21 04:00 Completed XR chest 1V lorna ble [id number] Stat Exams 08/29/21 10:19 Completed XR chest 1V lorna ble [id number] Stat Exams 08/30/21 06:30 Completed XR chest 1V lorna ble [id number] Stat Exams 08/30/21 08:50 [place] [id number] Urgent Ultrasound 08/30/21 10:45 Completed CV. 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 Routin e Exams 08/31/21 11:19 Taken ABG FULL [Arteria l Blood Gas Full] Stat Lab 08/31/21 08:36 Ordered Blood Culture Sta t Lab 08/30/21 14:32 Results Complete Blood Co unt w/Auto AM LABS Lab 09/01/21 04:00 Ordered Complete Blood Co unt w/Auto AM LABS Lab 09/02/21 04:00 Ordered Complete Blood Co unt w/Auto AM LABS Lab 09/03/21 04:00 Ordered Comprehensive Met abolic Panel AM LA BS Lab 09/01/21 04:00 Ordered Comprehensive Met abolic Panel AM LA BS Lab 09/02/21 04:00 Ordered Comprehensive Met abolic Panel AM LA BS Lab 09/03/21 04:00 Ordered Fecal Occult Bloo d [Immunochemical Fecal OCB] Routine Lab 08/31/21 16:34 Uncollected Ferritin AM LABS Lab 09/01/21 04:00 Ordered Magnesium AM LABS Lab 09/01/21 04:00 Ordered Magnesium AM LABS Lab 09/02/21 04:00 Ordered Magnesium AM LABS Lab 09/03/21 04:00 Ordered PTH [Parathyroid With Calcium] AM L ABS Lab 09/01/21 04:00 Ordered Phosphorus AM LAB S Lab 09/01/21 04:00 Ordered Phosphorus AM LAB S Lab 09/02/21 04:00 Ordered Phosphorus AM LAB S Lab 09/03/21 04:00 Ordered Platelet Count Q2 D Lab 09/02/21 04:00 Ordered Sputum Culture an d Gram Stain Stat Lab 08/30/21 10:30 Results Sputum Culture an d Gram Stain Stat Lab 08/30/21 16:20 Ordered Total Iron Bindin g Capacity AM LABS Lab 09/01/21 04:00 Ordered Urine Culture Sta t Lab 08/30/21 15:45 Received Vitamin D 1,25 Di hydroxy Routine Lab 08/31/21 08:19 Received Labs from last 24 hours 08/31/21 08/31/21 08/31/21 15:38 12:46 12:46 WBC Corrected WBC RBC Hgb Hct MCV MCH MCHC RDW Plt Count MPV Gran % Neut % (Auto) Lymph % (Auto) [place] % (Auto) Eos % (Auto) Baso % (Auto) Neut # (Auto) Lymph # (Auto) [place] # (Auto) Eos # (Auto) Baso # (Auto) Absolute Gran (aut o) Nucleated RBC % (a uto) Nucleated RBCs # APTT Specimen Type Sample Site ABG pH ABG pCO2 ABG pO2 ABG HCO3 ABG O2 Saturation ABG Base Excess Tj Test A-a O2 Gradient Hematocrit Hgb O2 Saturation Carboxyhemoglobin Methemoglobin Total Hemoglobin Ionized Calcium O2 Delivery Device FiO2 Care Professionals ID Blood Gas Notified Time Sodium Potassium Chloride Carbon Dioxide Anion Gap BUN Creatinine GFR Calculation Glucose POC Glucose 126 H 146 H Calculated Osmolal ity Lactate Uric Acid Calcium Magnesium Total Bilirubin AST ALT Alkaline Phosphata se Total Protein Albumin Globulin 25-OH Vitamin D To gabriela 1,25 Dihydroxy Vit D2 1,25 Dihydroxy Vit D3 Urine Color Urine Appearance Urine pH Ur Specific Gravit y Urine Protein Urine Glucose (UA) Urine Ketones Urine Blood Urine Nitrate Urine Bilirubin Urine Urobilinogen Ur Leukocyte Madyson ase Urine RBC Urine WBC Ur Squamous Epith Cells Amorphous Sediment Urine Bacteria Serum Ketones Nasal/Oral COVID-1 9 PCR Hep Bs Antigen Non-reactive Hep Bs Antibody 3.5 L Hepatitis C Antibo dy Non-reactive 08/31/21 08/31/21 08/31/21 12:46 12:46 12:09 WBC Corrected WBC RBC Hgb 8.4 L Hct 27.3 L MCV MCH MCHC RDW Plt Count MPV Gran % Neut % (Auto) Lymph % (Auto) [place] % (Auto) Eos % (Auto) Baso % (Auto) Neut # (Auto) Lymph # (Auto) [place] # (Auto) Eos # (Auto) Baso # (Auto) Absolute Gran (aut o) Nucleated RBC % (a uto) Nucleated RBCs # APTT 32.7 D Specimen Type Sample Site ABG pH ABG pCO2 ABG pO2 ABG HCO3 ABG O2 Saturation ABG Base Excess Tj Test A-a O2 Gradient Hematocrit Hgb O2 Saturation Carboxyhemoglobin Methemoglobin Total Hemoglobin Ionized Calcium O2 Delivery Device FiO2 Care Professionals ID Blood Gas Notified Time Sodium Potassium Chloride Carbon Dioxide Anion Gap BUN Creatinine GFR Calculation Glucose POC Glucose 146 H Calculated Osmolal ity Lactate Uric Acid Calcium Magnesium Total Bilirubin AST ALT Alkaline Phosphata se Total Protein Albumin Globulin 25-OH Vitamin D To gabriela 1,25 Dihydroxy Vit D2 1,25 Dihydroxy Vit D3 Urine Color Urine Appearance Urine pH Ur Specific Gravit y Urine Protein Urine Glucose (UA) Urine Ketones Urine Blood Urine Nitrate Urine Bilirubin Urine Urobilinogen Ur Leukocyte Madyson ase Urine RBC Urine WBC Ur Squamous Epith Cells Amorphous Sediment Urine Bacteria Serum Ketones Nasal/Oral COVID-1 9 PCR Hep Bs Antigen Hep Bs Antibody Hepatitis C Antibo dy 08/31/21 08/31/21 08/31/21 11:21 10:33 09:51 WBC Corrected WBC RBC Hgb Hct MCV MCH MCHC RDW Plt Count MPV Gran % Neut % (Auto) Lymph % (Auto) [place] % (Auto) Eos % (Auto) Baso % (Auto) Neut # (Auto) Lymph # (Auto) [place] # (Auto) Eos # (Auto) Baso # (Auto) Absolute Gran (aut o) Nucleated RBC % (a uto) Nucleated RBCs # APTT Specimen Type Sample Site ABG pH ABG pCO2 ABG pO2 ABG HCO3 ABG O2 Saturation ABG Base Excess Tj Test A-a O2 Gradient Hematocrit Hgb O2 Saturation Carboxyhemoglobin Methemoglobin Total Hemoglobin Ionized Calcium O2 Delivery Device FiO2 Care Professionals ID Blood Gas Notified Time Sodium Potassium Chloride Carbon Dioxide Anion Gap BUN Creatinine GFR Calculation Glucose POC Glucose 139 H 149 H 156 H Calculated Osmolal ity Lactate Uric Acid Calcium Magnesium Total Bilirubin AST ALT Alkaline Phosphata se Total Protein Albumin Globulin 25-OH Vitamin D To gabriela 1,25 Dihydroxy Vit D2 1,25 Dihydroxy Vit D3 Urine Color Urine Appearance Urine pH Ur Specific Gravit y Urine Protein Urine Glucose (UA) Urine Ketones Urine Blood Urine Nitrate Urine Bilirubin Urine Urobilinogen Ur Leukocyte Madyson ase Urine RBC Urine WBC Ur Squamous Epith Cells Amorphous Sediment Urine Bacteria Serum Ketones Nasal/Oral COVID-1 9 PCR Hep Bs Antigen Hep Bs Antibody Hepatitis C Antibo dy 08/31/21 08/31/21 08/31/21 09:13 08:19 08:19 WBC Corrected WBC RBC Hgb Hct MCV MCH MCHC RDW Plt Count MPV Gran % Neut % (Auto) Lymph % (Auto) [place] % (Auto) Eos % (Auto) Baso % (Auto) Neut # (Auto) Lymph # (Auto) [place] # (Auto) Eos # (Auto) Baso # (Auto) Absolute Gran (aut o) Nucleated RBC % (a uto) Nucleated RBCs # APTT Specimen Type Sample Site ABG pH ABG pCO2 ABG pO2 ABG HCO3 ABG O2 Saturation ABG Base Excess Tj Test A-a O2 Gradient Hematocrit Hgb O2 Saturation Carboxyhemoglobin Methemoglobin Total Hemoglobin Ionized Calcium O2 Delivery Device FiO2 Care Professionals ID Blood Gas Notified Time Sodium Potassium Chloride Carbon Dioxide Anion Gap BUN Creatinine GFR Calculation Glucose POC Glucose 145 H Calculated Osmolal ity Lactate Uric Acid 10.2 H Calcium Magnesium Total Bilirubin AST ALT Alkaline Phosphata se Total Protein Albumin Globulin 25-OH Vitamin D To gabrieal Pending 1,25 Dihydroxy Vit D2 Pending 1,25 Dihydroxy Vit D3 Pending Urine Color Urine Appearance Urine pH Ur Specific Gravit y Urine Protein Urine Glucose (UA) Urine Ketones Urine Blood Urine Nitrate Urine Bilirubin Urine Urobilinogen Ur Leukocyte Madyson ase Urine RBC Urine WBC Ur Squamous Epith Cells Amorphous Sediment Urine Bacteria Serum Ketones Nasal/Oral COVID-1 9 PCR Hep Bs Antigen Hep Bs Antibody Hepatitis C Antibo dy 08/31/21 08/31/21 08/31/21 08:19 07:57 06:37 WBC Corrected WBC RBC Hgb Hct MCV MCH MCHC RDW Plt Count MPV Gran % Neut % (Auto) Lymph % (Auto) [place] % (Auto) Eos % (Auto) Baso % (Auto) Neut # (Auto) Lymph # (Auto) [place] # (Auto) Eos # (Auto) Baso # (Auto) Absolute Gran (aut o) Nucleated RBC % (a uto) Nucleated RBCs # APTT Specimen Type Sample Site ABG pH ABG pCO2 ABG pO2 ABG HCO3 ABG O2 Saturation ABG Base Excess Tj Test A-a O2 Gradient Hematocrit Hgb O2 Saturation Carboxyhemoglobin Methemoglobin Total Hemoglobin Ionized Calcium O2 Delivery Device FiO2 Care Professionals ID Blood Gas Notified Time Sodium Potassium Chloride Carbon Dioxide Anion Gap BUN Creatinine GFR Calculation Glucose POC Glucose 173 H 162 H Calculated Osmolal ity Lactate Uric Acid Calcium Magnesium Total Bilirubin AST ALT Alkaline Phosphata se Total Protein Albumin Globulin 25-OH Vitamin D To gabriela 1,25 Dihydroxy Vit D2 1,25 Dihydroxy Vit D3 Urine Color Urine Appearance Urine pH Ur Specific Gravit y Urine Protein Urine Glucose (UA) Urine Ketones Urine Blood Urine Nitrate Urine Bilirubin Urine Urobilinogen Ur Leukocyte Madyson ase Urine RBC Urine WBC Ur Squamous Epith Cells Amorphous Sediment Urine Bacteria Serum Ketones Negative Nasal/Oral COVID-1 9 PCR Hep Bs Antigen Hep Bs Antibody Hepatitis C Antibo dy 08/31/21 08/31/21 08/31/21 05:30 05:30 05:30 WBC 16.8 H Corrected WBC RBC 2.67 L Hgb 7.7 L Hct 24.6 L MCV 92.1 MCH 28.8 MCHC 31.3 D RDW 14.0 Plt Count 381 MPV 10.9 H Gran % Neut % (Auto) 73.2 Lymph % (Auto) 14.4 [place] % (Auto) 9.9 Eos % (Auto) 1.3 Baso % (Auto) 0.5 Neut # (Auto) 12.33 H Lymph # (Auto) 2.4 [place] # (Auto) 1.7 H Eos # (Auto) 0.2 Baso # (Auto) 0.1 Absolute Gran (aut o) Nucleated RBC % (a uto) 0 Nucleated RBCs # 0.0 APTT 155.1 H* Specimen Type Sample Site ABG pH ABG pCO2 ABG pO2 ABG HCO3 ABG O2 Saturation ABG Base Excess Tj Test A-a O2 Gradient Hematocrit Hgb O2 Saturation Carboxyhemoglobin Methemoglobin Total Hemoglobin Ionized Calcium O2 Delivery Device FiO2 Care Professionals ID Blood Gas Notified Time Sodium 137 Potassium 3.9 Chloride 102 Carbon Dioxide 21 L Anion Gap 17.9 BUN 50 H Creatinine 3.8 H GFR Calculation 11.8 L Glucose 166 H POC Glucose Calculated Osmolal ity 301 H Lactate Uric Acid Calcium 7.6 L Magnesium 2.0 Total Bilirubin 0.2 AST 156 H ALT 47 H Alkaline Phosphata se 230 H Total Protein 4.6 L Albumin 2.4 L Globulin 2.2 25-OH Vitamin D To gabriela 1,25 Dihydroxy Vit D2 1,25 Dihydroxy Vit D3 Urine Color Urine Appearance Urine pH Ur Specific Gravit y Urine Protein Urine Glucose (UA) Urine Ketones Urine Blood Urine Nitrate Urine Bilirubin Urine Urobilinogen Ur Leukocyte Madyson ase Urine RBC Urine WBC Ur Squamous Epith Cells Amorphous Sediment Urine Bacteria Serum Ketones Nasal/Oral COVID-1 9 PCR Hep Bs Antigen Hep Bs Antibody Hepatitis C Antibo dy 08/31/21 08/31/21 08/31/21 05:30 04:48 04:07 WBC Corrected WBC RBC Hgb Hct MCV MCH MCHC RDW Plt Count MPV Gran % Neut % (Auto) Lymph % (Auto) [place] % (Auto) Eos % (Auto) Baso % (Auto) Neut # (Auto) Lymph # (Auto) [place] # (Auto) Eos # (Auto) Baso # (Auto) Absolute Gran (aut o) Nucleated RBC % (a uto) Nucleated RBCs # APTT Specimen Type Arterial Sample Site Radial,right ABG pH 7.43 ABG pCO2 30.9 L ABG pO2 72.3 L ABG HCO3 20.6 L ABG O2 Saturation 96.5 ABG Base Excess -3.2 L Tj Test pos A-a O2 Gradient 134.2 H Hematocrit 22.2 L Hgb O2 Saturation 95.3 Carboxyhemoglobin 0.7 Methemoglobin 0.5 Total Hemoglobin 7.2 L Ionized Calcium 1.2 O2 Delivery Device vent FiO2 35.0 Care Professionals ID micheal Blood Gas Notified Time 0511 Sodium 141.0 Potassium 3.7 Chloride Carbon Dioxide Anion Gap BUN Creatinine GFR Calculation Glucose 197.0 H POC Glucose 172 H Calculated Osmolal ity Lactate 1.6 Uric Acid Calcium Magnesium Total Bilirubin AST ALT Alkaline Phosphata se Total Protein Albumin Globulin 25-OH Vitamin D To gabriela 1,25 Dihydroxy Vit D2 1,25 Dihydroxy Vit D3 Urine Color Urine Appearance Urine pH Ur Specific Gravit y Urine Protein Urine Glucose (UA) Urine Ketones Urine Blood Urine Nitrate Urine Bilirubin Urine Urobilinogen Ur Leukocyte Madyson ase Urine RBC Urine WBC Ur Squamous Epith Cells Amorphous Sediment Urine Bacteria Serum Ketones Nasal/Oral COVID-1 9 PCR Hep Bs Antigen Hep Bs Antibody Hepatitis C Antibo dy 08/31/21 08/31/21 08/31/21 03:30 03:30 03:30 WBC Cancelled Corrected WBC Cancelled RBC Cancelled Hgb Cancelled Hct Cancelled MCV Cancelled MCH Cancelled MCHC Cancelled RDW Cancelled Plt Count Cancelled MPV Cancelled Gran % Cancelled Neut % (Auto) Cancelled Lymph % (Auto) Cancelled [place] % (Auto) Cancelled Eos % (Auto) Cancelled Baso % (Auto) Cancelled Neut # (Auto) Cancelled Lymph # (Auto) Cancelled [place] # (Auto) Cancelled Eos # (Auto) Cancelled Baso # (Auto) Cancelled Absolute Gran (aut o) Cancelled Nucleated RBC % (a uto) Cancelled Nucleated RBCs # Cancelled APTT Specimen Type Sample Site ABG pH ABG pCO2 ABG pO2 ABG HCO3 ABG O2 Saturation ABG Base Excess Tj Test A-a O2 Gradient Hematocrit Hgb O2 Saturation Carboxyhemoglobin Methemoglobin Total Hemoglobin Ionized Calcium O2 Delivery Device FiO2 Care Professionals ID Blood Gas Notified Time Sodium Cancelled Potassium Cancelled Chloride Cancelled Carbon Dioxide Cancelled Anion Gap Cancelled BUN Cancelled Creatinine Cancelled GFR Calculation Cancelled Glucose Cancelled POC Glucose Calculated Osmolal ity Cancelled Lactate Cancelled Uric Acid Calcium Cancelled Magnesium Cancelled Total Bilirubin Cancelled AST Cancelled ALT Cancelled Alkaline Phosphata se Cancelled Total Protein Cancelled Albumin Cancelled Globulin Cancelled 25-OH Vitamin D To gabriela 1,25 Dihydroxy Vit D2 1,25 Dihydroxy Vit D3 Urine Color Urine Appearance Urine pH Ur Specific Gravit y Urine Protein Urine Glucose (UA) Urine Ketones Urine Blood Urine Nitrate Urine Bilirubin Urine Urobilinogen Ur Leukocyte Madyson ase Urine RBC Urine WBC Ur Squamous Epith Cells Amorphous Sediment Urine Bacteria Serum Ketones Nasal/Oral COVID-1 9 PCR Hep Bs Antigen Hep Bs Antibody Hepatitis C Antibo dy 08/31/21 08/31/21 08/31/21 03:30 03:20 02:36 WBC Corrected WBC RBC Hgb Hct MCV MCH MCHC RDW Plt Count MPV Gran % Neut % (Auto) Lymph % (Auto) [place] % (Auto) Eos % (Auto) Baso % (Auto) Neut # (Auto) Lymph # (Auto) [place] # (Auto) Eos # (Auto) Baso # (Auto) Absolute Gran (aut o) Nucleated RBC % (a uto) Nucleated RBCs # APTT Cancelled Specimen Type Sample Site ABG pH ABG pCO2 ABG pO2 ABG HCO3 ABG O2 Saturation ABG Base Excess Tj Test A-a O2 Gradient Hematocrit Hgb O2 Saturation Carboxyhemoglobin Methemoglobin Total Hemoglobin Ionized Calcium O2 Delivery Device FiO2 Care Professionals ID Blood Gas Notified Time Sodium Potassium Chloride Carbon Dioxide Anion Gap BUN Creatinine GFR Calculation Glucose POC Glucose 183 H 172 H Calculated Osmolal ity Lactate Uric Acid Calcium Magnesium Total Bilirubin AST ALT Alkaline Phosphata se Total Protein Albumin Globulin 25-OH Vitamin D To gabriela 1,25 Dihydroxy Vit D2 1,25 Dihydroxy Vit D3 Urine Color Urine Appearance Urine pH Ur Specific Gravit y Urine Protein Urine Glucose (UA) Urine Ketones Urine Blood Urine Nitrate Urine Bilirubin Urine Urobilinogen Ur Leukocyte Madyson ase Urine RBC Urine WBC Ur Squamous Epith Cells Amorphous Sediment Urine Bacteria Serum Ketones Nasal/Oral COVID-1 9 PCR Hep Bs Antigen Hep Bs Antibody Hepatitis C Antibo dy 08/31/21 08/31/21 08/31/21 01:05 00:50 00:33 WBC Corrected WBC RBC Hgb Hct MCV MCH MCHC RDW Plt Count MPV Gran % Neut % (Auto) Lymph % (Auto) [place] % (Auto) Eos % (Auto) Baso % (Auto) Neut # (Auto) Lymph # (Auto) [place] # (Auto) Eos # (Auto) Baso # (Auto) Absolute Gran (aut o) Nucleated RBC % (a uto) Nucleated RBCs # APTT 158.8 H* D Specimen Type Sample Site ABG pH ABG pCO2 ABG pO2 ABG HCO3 ABG O2 Saturation ABG Base Excess Tj Test A-a O2 Gradient Hematocrit Hgb O2 Saturation Carboxyhemoglobin Methemoglobin Total Hemoglobin Ionized Calcium O2 Delivery Device FiO2 Care Professionals ID Blood Gas Notified Time Sodium Potassium Chloride Carbon Dioxide Anion Gap BUN Creatinine GFR Calculation Glucose POC Glucose 133 H 137 H Calculated Osmolal ity Lactate Uric Acid Calcium Magnesium Total Bilirubin AST ALT Alkaline Phosphata se Total Protein Albumin Globulin 25-OH Vitamin D To gabriela 1,25 Dihydroxy Vit D2 1,25 Dihydroxy Vit D3 Urine Color Urine Appearance Urine pH Ur Specific Gravit y Urine Protein Urine Glucose (UA) Urine Ketones Urine Blood Urine Nitrate Urine Bilirubin Urine Urobilinogen Ur Leukocyte Madyson ase Urine RBC Urine WBC Ur Squamous Epith Cells Amorphous Sediment Urine Bacteria Serum Ketones Nasal/Oral COVID-1 9 PCR Hep Bs Antigen Hep Bs Antibody Hepatitis C Antibo dy 08/30/21 08/30/21 08/30/21 23:28 22:14 21:15 WBC Corrected WBC RBC Hgb Hct MCV MCH MCHC RDW Plt Count MPV Gran % Neut % (Auto) Lymph % (Auto) [place] % (Auto) Eos % (Auto) Baso % (Auto) Neut # (Auto) Lymph # (Auto) [place] # (Auto) Eos # (Auto) Baso # (Auto) Absolute Gran (aut o) Nucleated RBC % (a uto) Nucleated RBCs # APTT Specimen Type Sample Site ABG pH ABG pCO2 ABG pO2 ABG HCO3 ABG O2 Saturation ABG Base Excess Tj Test A-a O2 Gradient Hematocrit Hgb O2 Saturation Carboxyhemoglobin Methemoglobin Total Hemoglobin Ionized Calcium O2 Delivery Device FiO2 Care Professionals ID Blood Gas Notified Time Sodium Potassium Chloride Carbon Dioxide Anion Gap BUN Creatinine GFR Calculation Glucose POC Glucose 102 98 89 Calculated Osmolal ity Lactate Uric Acid Calcium Magnesium Total Bilirubin AST ALT Alkaline Phosphata se Total Protein Albumin Globulin 25-OH Vitamin D To gabriela 1,25 Dihydroxy Vit D2 1,25 Dihydroxy Vit D3 Urine Color Urine Appearance Urine pH Ur Specific Gravit y Urine Protein Urine Glucose (UA) Urine Ketones Urine Blood Urine Nitrate Urine Bilirubin Urine Urobilinogen Ur Leukocyte Madyson ase Urine RBC Urine WBC Ur Squamous Epith Cells Amorphous Sediment Urine Bacteria Serum Ketones Nasal/Oral COVID-1 9 PCR Hep Bs Antigen Hep Bs Antibody Hepatitis C Antibo dy 08/30/21 08/30/21 08/30/21 20:53 20:26 18:50 WBC Corrected WBC RBC Hgb Hct MCV MCH MCHC RDW Plt Count MPV Gran % Neut % (Auto) Lymph % (Auto) [place] % (Auto) Eos % (Auto) Baso % (Auto) Neut # (Auto) Lymph # (Auto) [place] # (Auto) Eos # (Auto) Baso # (Auto) Absolute Gran (aut o) Nucleated RBC % (a uto) Nucleated RBCs # APTT Specimen Type Sample Site ABG pH ABG pCO2 ABG pO2 ABG HCO3 ABG O2 Saturation ABG Base Excess Tj Test A-a O2 Gradient Hematocrit Hgb O2 Saturation Carboxyhemoglobin Methemoglobin Total Hemoglobin Ionized Calcium O2 Delivery Device FiO2 Care Professionals ID Blood Gas Notified Time Sodium 139 Potassium 4.0 Chloride 104 Carbon Dioxide 21 L Anion Gap 18.0 BUN 50 H Creatinine 3.8 H GFR Calculation 11.8 L Glucose 135 H POC Glucose 103 124 H Calculated Osmolal ity 303 H Lactate Uric Acid Calcium 8.0 L Magnesium Total Bilirubin AST ALT Alkaline Phosphata se Total Protein Albumin Globulin 25-OH Vitamin D To gabriela 1,25 Dihydroxy Vit D2 1,25 Dihydroxy Vit D3 Urine Color Urine Appearance Urine pH Ur Specific Gravit y Urine Protein Urine Glucose (UA) Urine Ketones Urine Blood Urine Nitrate Urine Bilirubin Urine Urobilinogen Ur Leukocyte Madyson ase Urine RBC Urine WBC Ur Squamous Epith Cells Amorphous Sediment Urine Bacteria Serum Ketones Nasal/Oral COVID-1 9 PCR Hep Bs Antigen Hep Bs Antibody Hepatitis C Antibo dy 08/30/21 08/30/21 08/30/21 17:52 16:39 16:34 WBC Corrected WBC RBC Hgb Hct MCV MCH MCHC RDW Plt Count MPV Gran % Neut % (Auto) Lymph % (Auto) [place] % (Auto) Eos % (Auto) Baso % (Auto) Neut # (Auto) Lymph # (Auto) [place] # (Auto) Eos # (Auto) Baso # (Auto) Absolute Gran (aut o) Nucleated RBC % (a uto) Nucleated RBCs # APTT 41.7 H D Specimen Type Sample Site ABG pH ABG pCO2 ABG pO2 ABG HCO3 ABG O2 Saturation ABG Base Excess Tj Test A-a O2 Gradient Hematocrit Hgb O2 Saturation Carboxyhemoglobin Methemoglobin Total Hemoglobin Ionized Calcium O2 Delivery Device FiO2 Care Professionals ID Blood Gas Notified Time Sodium Potassium Chloride Carbon Dioxide Anion Gap BUN Creatinine GFR Calculation Glucose POC Glucose 148 H 182 H Calculated Osmolal ity Lactate Uric Acid Calcium Magnesium Total Bilirubin AST ALT Alkaline Phosphata se Total Protein Albumin Globulin 25-OH Vitamin D To gabriela 1,25 Dihydroxy Vit D2 1,25 Dihydroxy Vit D3 Urine Color Urine Appearance Urine pH Ur Specific Gravit y Urine Protein Urine Glucose (UA) Urine Ketones Urine Blood Urine Nitrate Urine Bilirubin Urine Urobilinogen Ur Leukocyte Madyson ase Urine RBC Urine WBC Ur Squamous Epith Cells Amorphous Sediment Urine Bacteria Serum Ketones Nasal/Oral COVID-1 9 PCR Hep Bs Antigen Hep Bs Antibody Hepatitis C Antibo dy 08/30/21 08/30/21 08/30/21 16:34 15:45 15:38 WBC Corrected WBC RBC Hgb Hct MCV MCH MCHC RDW Plt Count MPV Gran % Neut % (Auto) Lymph % (Auto) [place] % (Auto) Eos % (Auto) Baso % (Auto) Neut # (Auto) Lymph # (Auto) [place] # (Auto) Eos # (Auto) Baso # (Auto) Absolute Gran (aut o) Nucleated RBC % (a uto) Nucleated RBCs # APTT Specimen Type Sample Site ABG pH ABG pCO2 ABG pO2 ABG HCO3 ABG O2 Saturation ABG Base Excess Tj Test A-a O2 Gradient Hematocrit Hgb O2 Saturation Carboxyhemoglobin Methemoglobin Total Hemoglobin Ionized Calcium O2 Delivery Device FiO2 Care Professionals ID Blood Gas Notified Time Sodium Potassium Chloride Carbon Dioxide Anion Gap BUN Creatinine GFR Calculation Glucose POC Glucose 253 H Calculated Osmolal ity Lactate 2.6 H Uric Acid Calcium Magnesium Total Bilirubin AST ALT Alkaline Phosphata se Total Protein Albumin Globulin 25-OH Vitamin D To gabriela 1,25 Dihydroxy Vit D2 1,25 Dihydroxy Vit D3 Urine Color Yellow Urine Appearance Hazy A Urine pH 5 Ur Specific Gravit y 1.020 Urine Protein 3+ H Urine Glucose (UA) 2+ H Urine Ketones 1+ H Urine Blood 2+ H Urine Nitrate Negative Urine Bilirubin Neg Urine Urobilinogen Norm Ur Leukocyte Madyson ase 2+ H Urine RBC 10-15 H Urine WBC 25-40 H Ur Squamous Epith Cells 5-10 H Amorphous Sediment Not Reportable Urine Bacteria 3+ H Serum Ketones Nasal/Oral COVID-1 9 PCR Hep Bs Antigen Hep Bs Antibody Hepatitis C Antibo dy 08/30/21 08/29/21 14:30 12:29 WBC Corrected WBC RBC Hgb Hct MCV MCH MCHC RDW Plt Count MPV Gran % Neut % (Auto) Lymph % (Auto) [place] % (Auto) Eos % (Auto) Baso % (Auto) Neut # (Auto) Lymph # (Auto) [place] # (Auto) Eos # (Auto) Baso # (Auto) Absolute Gran (aut o) Nucleated RBC % (a uto) Nucleated RBCs # APTT Specimen Type Sample Site ABG pH ABG pCO2 ABG pO2 ABG HCO3 ABG O2 Saturation ABG Base Excess Tj Test A-a O2 Gradient Hematocrit Hgb O2 Saturation Carboxyhemoglobin Methemoglobin Total Hemoglobin Ionized Calcium O2 Delivery Device FiO2 Care Professionals ID Blood Gas Notified Time Sodium Potassium Chloride Carbon Dioxide Anion Gap BUN Creatinine GFR Calculation Glucose POC Glucose 299 H Calculated Osmolal ity Lactate Uric Acid Calcium Magnesium Total Bilirubin AST ALT Alkaline Phosphata se Total Protein Albumin Globulin 25-OH Vitamin D To gabriela 1,25 Dihydroxy Vit D2 1,25 Dihydroxy Vit D3 Urine Color Urine Appearance Urine pH Ur Specific Gravit y Urine Protein Urine Glucose (UA) Urine Ketones Urine Blood Urine Nitrate Urine Bilirubin Urine Urobilinogen Ur Leukocyte Madyson ase Urine RBC Urine WBC Ur Squamous Epith Cells Amorphous Sediment Urine Bacteria Serum Ketones Nasal/Oral COVID-1 9 PCR Not detected Hep Bs Antigen Hep Bs Antibody Hepatitis C Antibo dy Vitals: Last Vital Signs Temp 98.4 F 08/31/21 14:49 Pulse 84 08/31/21 16:00 Resp 18 08/31/21 15:01 BP 125/65 08/31/21 16:00 Pulse Ox 96 08/31/21 15:30 TS Medications Medications Home Medications insulin aspart U-100 [Novolog Flexpen U-100 Insulin] See Rx Instructions .ROUTE .COMPLEX 08/21/21 [History Confirmed 08/29/21] lorazepam 0.5 mg PO TID PRN 08/21/21 [History Confirmed 08/29/21] metoclopramide HCl 10 mg PO .TID & AT BEDTIME 08/21/21 [History Confirmed 08/29/21] pantoprazole 40 mg PO DAILY 08/21/21 [History Confirmed 08/29/21] amoxicillin-pot clavulanate [Augmentin] 1 tab PO BID 10 Days #20 tab 08/26/21 [Rx Confirmed 08/29/21] aspirin [Children's Aspirin] 81 mg PO DAILY 30 Days #30 tab 08/26/21 [Rx Confirmed 08/29/21] atorvastatin 40 mg PO BEDTIME 30 Days #30 tab 08/26/21 [Rx Confirmed 08/29/21] clopidogrel 75 mg PO DAILY 30 Days #30 tab 08/26/21 [Rx Confirmed 08/29/21] furosemide [Lasix] 40 mg PO DAILY 30 Days #30 tab 08/26/21 [Rx Confirmed 08/29/21] hydralazine 50 mg PO TID 30 Days #90 tab 08/26/21 [Rx Confirmed 08/29/21] isosorbide mononitrate 30 mg PO BID 30 Days #60 tab 08/26/21 [Rx Confirmed 08/29/21] metoprolol tartrate 50 mg PO BID@0900,2100 30 Days #60 tab 08/26/21 [Rx Confirmed 08/29/21] potassium chloride [Klor-Con 10] 10 meq PO DAILY 30 Days #30 tab 08/26/21 [Rx Confirmed 08/29/21] sodium bicarbonate 650 mg PO TID 30 Days #90 tab 08/26/21 [Rx Confirmed 08/29/21] insulin glargine [Lantus Solostar U-100 Insulin] 8 unit SUBCUT Q12H 08/29/21 [History Confirmed 08/29/21] venlafaxine 75 mg PO DAILY 08/29/21 [History Confirmed 08/29/21] Active Medications Acetaminophen (Acetaminophen 325 Mg Tablet) 650 mg PO Q6H PRN PRN Reason: Mild/Mod Pain Or Temp >/= 101 Albuterol/Ipratropium (Ipratropium-Albuterol 3 Ml Neb) 3 ml INHALATION Q4H.RESPIRATORY PRN 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 Last Admin: 08/31/21 07:42 Dose: 3 ml Documented by: Aspirin (Aspirin 81 Mg Chew Tablet) 81 mg PO DAILY [facility] Last Admin: 08/31/21 09:59 Dose: 81 mg Documented by: Atorvastatin Calcium (Atorvastatin 40 Mg Tablet) 40 mg PO BEDTIME [facility] Last Admin: 08/30/21 21:46 Dose: 40 mg Documented by: Clopidogrel Bisulfate (Clopidogrel 75 Mg Tablet) 75 mg PO DAILY [facility] Last Admin: 08/31/21 09:59 Dose: 75 mg Documented by: Dextrose (Dextrose 50% Syringe 50 Ml) 25 ml IVP ONCE PRN; Protocol PRN Reason: hypoglycemia protocol Dextrose (Dextrose 50% Syringe 50 Ml) 50 ml IVP PRN PRN; Protocol PRN Reason: hypoglycemia protocol Glucagon (Glucagon 1 Mg/Ml Inj 1 Ml) 1 mg IM ONCE PRN; Protocol PRN Reason: Adult Acute Hypoglycemia Prot. Hydralazine HCl (Hydralazine 50 Mg Tablet) 50 mg PO TID [facility] Last Admin: 08/30/21 15:15 Dose: Not Given Documented by: Dextrose (D5w) 500 mls @ 100 mls/hr IV ONCE PRN; Protocol PRN Reason: Adult Acute Hypoglycemia Prot Metronidazole (Flagyl Iv) 500 mg in 100 mls @ 100 mls/hr IV Q8H [facility]; Protocol Last Admin: 08/31/21 08:34 Dose: 100 mls/hr Documented by: Fentanyl 1,000 mcg/ Sodium (Chloride) 100 mls @ 0 mls/hr IV .Q0M [facility]; Protocol Last Admin: 08/31/21 13:29 Dose: 35 mcg/hr, 3.5 mls/hr Documented by: Propofol (Diprivan) 1,000 mg in 100 mls @ 0 mls/hr IV .Q0M [facility]; Protocol Last Admin: 08/31/21 13:24 Dose: 20 mcg/kg/min, 9.53 mls/hr Documented by: Cefepime HCl 2,000 mg/ Sodium (Chloride) 50 mls @ 100 mls/hr IV Q24H [facility]; Protocol Last Infusion: 08/31/21 00:43 Dose: Infused Documented by: Dextrose (D10w) 1,000 mls @ 30 mls/hr IV .Q24H [facility] Insulin Glargine (Insulin Glargine 100 Units/1 Ml) 10 unit SUBCUT BID [facility] Insulin Glargine (Insulin Glargine 100 Units/1 Ml) 10 unit SUBCUT ONCE [facility] Last Admin: 08/31/21 16:06 Dose: 10 unit Documented by: Insulin Human Lispro (Insulin Lispro 100 Unit/1 Ml) 0 unit SUBCUT WM&BEDTIME [facility]; Protocol Last Admin: 08/31/21 13:21 Dose: 4 unit Documented by: Lorazepam (Lorazepam 0.5 Mg Tablet) 0.5 mg PO TID PRN PRN Reason: Anxiety Last Admin: 08/30/21 06:47 Dose: 0.5 mg Documented by: Metoprolol Tartrate (Metoprolol Tartrate 25 Mg Tablet) 12.5 mg PO BID@0900,2100 [facility] Last Admin: 08/31/21 10:40 Dose: 12.5 mg Documented by: Morphine Sulfate (Morphine 4 Mg/Ml Sdv 1 Ml) 2 mg IVP Q4H PRN PRN Reason: SEVERE PAIN Ondansetron HCl (Ondansetron 2 Mg/Ml Sdv 2 Ml) 4 mg IVP Q6H PRN PRN Reason: NAUSEA AND VOMITING Last Admin: 08/29/21 18:12 Dose: 4 mg Documented by: Pantoprazole Sodium (Pantoprazole 40 Mg Sdv) 40 mg IVP Q12H [facility] Last Admin: 08/31/21 03:34 Dose: 40 mg Documented by: Venlafaxine HCl (Venlafaxine Er (24hr) 75 Mg Capsule) 75 mg PO DAILY [facility] Discharge Plan Discharge Patient Disposition: Home Condition: Stable Prescriptions: No Action lorazepam 0.5 mg Tablet 0.5 mg PO TID PRN (Reason: Anxiety) RF: 0 pantoprazole 40 mg Tablet,Delayed Release (Dr/Ec) 40 mg PO DAILY RF: 0 metoclopramide HCl 10 mg Tablet 10 mg PO .TID & AT BEDTIME RF: 0 insulin aspart U-100 [Novolog Flexpen U-100 Insulin] 100 unit/mL (3 mL) Insulin Pen See Rx Instructions .ROUTE .COMPLEX RF: 0 atorvastatin 40 mg Tablet 40 mg PO BEDTIME 30 Days Qty: 30 RF: 0 clopidogrel 75 mg Tablet 75 mg PO DAILY 30 Days Qty: 30 RF: 0 aspirin [Children's Aspirin] 81 mg Tablet,Chewable 81 mg PO DAILY 30 Days Qty: 30 RF: 0 hydralazine 50 mg Tablet 50 mg PO TID 30 Days Qty: 90 RF: 0 isosorbide mononitrate 30 mg Tablet Extended Release 24 Hr 30 mg PO BID 30 Days Qty: 60 RF: 0 sodium bicarbonate 650 mg Tablet 650 mg PO TID 30 Days Qty: 90 RF: 0 metoprolol tartrate 25 mg Tablet 50 mg PO BID@0900,2100 30 Days Qty: 60 RF: 0 furosemide [Lasix] 40 mg tablet 40 mg PO DAILY 30 Days Qty: 30 RF: 0 potassium chloride [Klor-Con 10] 10 mEq tablet extended release 10 meq PO DAILY 30 Days Qty: 30 RF: 0 amoxicillin-pot clavulanate [Augmentin] 875-125 mg tablet 1 tab PO BID 10 Days Qty: 20 RF: 0 venlafaxine 75 mg capsule,extended release 24hr 75 mg PO DAILY RF: 0 Lantus Solostar U-100 Insulin 100 unit/mL (3 mL) insulin pen 8 unit SUBCUT Q12H RF: 0 Patient Instructions: Opioid Safety Transfer Attestations Time Spent in Transfer Care*: greater than 30 min Specific Discharge Activities: Specific discharge activities: educating and/or supporting family/caregiver, discussing with pcp/other providers, documenting/other paperwork and evaluating patient/reviewing data Quality Metrics Clinical Quality Measures: During this hospital stay, did patient experience: None Coding Level of Care Code Acute Regrinder for g Fwd Diagnoses Uncontrolled diabetes mellitus E11.65 Hypertension I10 Acute renal failure superimposed on chronic kidney disease N17.9; N18.9 Acute renal failure type: unspecified Chronic kidney disease stage: unspecified stage NSTEMI (non-ST elevated myocardial infarction) I21.4 Acute on chronic diastolic CHF (congestive heart failure) I50.33
[2021-08-31 18:44] LABS: Partial Thromboplastin Time 39.1 SECONDS (23.9-36.7)
[2021-08-31 18:45] LABS: Glucose Point of Care 146 mg/dL (70-110)
[2021-08-31] MEDS: heparin drip 25,000 UNIT/500 ML PREMIX 21 UNIT IV (19:21)
--- NOTE | 2021-08-31 20:02 | PC.NURSE ---
Shift report given to Mary Godoy, ICU nurse from [facility], receiving the patient on unit 3E in room 3321.
[2021-08-31 20:56] LABS: Glucose Point of Care 126 mg/dL (70-110)
[2021-08-31] MEDS: atorvastatin 40 mg Tablet PO (21:03)
--- NOTE | 2021-08-31 21:14 | PC.NURSE ---
The patient is experiencing sinus tachycardia with some slight hypertension. Current blood pressure is 152/80 with a current heart rate at 101. The patient's oxygenation is at 96% on a ventilator with an FiO2 at 35. The ETT is an 8.0 at 25 cm at the lower lip. The patient is not currently breathing over the ventilator setting of 18. Dietary: Glucerna 1.2 at 20 mL/hr with a current residual of 6 mL. Since the patient has been admitted there has not been a bowel movement. Drips currently running are Fentanyl at 35 mL/hr, Propofol at 20 mL/hr and a Lasix drip at 5 mL/hr. Pulses are palpable in the upper and lower extremities bilaterally. Cap refill is less than three and the patient demonstrates only moderate weakness on all four extremities. Positive for PERRLA, pupils are at a 4mm, and the patient is able to follow all commands asked of her. New dressing on the right femoral central line and also on the Dialysis line on the left femoral. Upper lungs are course sounding while the lower lobes sound very diminished. Patient report was given to Mary Frias, at [facility], at 2001. Last blood sugar taken was 126 at 2038.
[2021-09-01] VITALS: BP 130/76; PULSE 93; O2SAT 96
[2021-09-01 00:30] VITALS: O2SAT 96
--- NOTE | 2021-09-01 01:11 | PC.NURSE ---
Patient left with EMS at 0100 on their portable ventilator. Approximately 30 minutes before the patient departed, Abril, the daughter, had called to receive an update. She was informed that her mother would be leaving soon. Mary Frias, at [facility] was called after 0100 and informed that her patient would be arriving at approximately 0230.
[2021-09-04 20:33] LABS: Vit D 1,25 (Oh)2, Total 10 pg/mL (18-72); Vit D2 1,25 (Oh)2 <8 pg/mL; Vit D3 1,25 (Oh)2 10 pg/mL
== END 2021-09-01 01:00 | disposition short-term general hospital (02) | DRG 208 ==
LOC: ER 15:54 → CSU 15:58 → ICU 08-30 08:06
PROVIDERS: Hospitalist; Internal Medicine; Internal Medicine Nephrology; Internal Medicine Pulmonary Disease; Admitting Provider Internal Medicine; Emergency Provider Family Medicine; Visit Provider Internal Medicine
PROC: B211YZZ Fluoroscopy of Multiple Coronary Arteries using Other Contrast (ICD-10-PCS; principal; 2021-08-31 11:00)
DX: J96.21 Acute and chronic respiratory failure with hypoxia (principal); E11.10 Type 2 diabetes mellitus with ketoacidosis without coma; I21.4 Non-ST elevation (NSTEMI) myocardial infarction; I50.33 Acute on chronic diastolic (congestive) heart failure; I13.0 Hypertensive heart and chronic kidney disease with heart failure and stage 1 through stage 4 chronic kidney disease, or unspecified chronic kidney disease; N17.9 Acute kidney failure, unspecified; E11.22 Type 2 diabetes mellitus with diabetic chronic kidney disease; N18.9 Chronic kidney disease, unspecified; J44.9 Chronic obstructive pulmonary disease, unspecified; E11.43 Type 2 diabetes mellitus with diabetic autonomic (poly)neuropathy; K31.84 Gastroparesis; E11.65 Type 2 diabetes mellitus with hyperglycemia; E87.5 Hyperkalemia; R00.0 Tachycardia, unspecified; R79.1 Abnormal coagulation profile; I25.118 Atherosclerotic heart disease of native coronary artery with other forms of angina pectoris; E83.51 Hypocalcemia; D63.1 Anemia in chronic kidney disease; Z79.4 Long term (current) use of insulin; Z79.02 Long term (current) use of antithrombotics/antiplatelets; Z79.82 Long term (current) use of aspirin; Z91.19 Patient's noncompliance with other medical treatment and regimen
CPT/HCPCS: 36415; 36416; 36592; 36600; 70450; 71045; 76770; 80048; 80051; 80053; 81001; 82009; 82330; 82652; 82805; 82962; 83605; 83735; 83880; 84100; 84145; 84484; 84550; 85014; 85018; 85025; 85347; 85378; 85610; 85730; 86140; 86706; 86803; 87040; 87070; 87086; 87205; 87340; 87426; 87635; 87641; 93005; 93454; 93970; 94002; 94003; 94640; 94664; 94799; 96372; 96374; 99285; C1769; C1887; C1894; C8924; C9113; J0692; J1644; J1815 ×2; J1940; J2250; J2405; J2704; J2765; J3010; J3490; J7030; J7050; Q3014; Q9956; Q9967; S0030

== ENCOUNTER 2021-09-21 20:24 | Emergency (ER) | payer MEDICARE, MEDICAID, SELFPAY ==
[2021-09-21 20:28] VITALS: BP 142/74; PULSE 87; RESP 18; TEMP 36.9; O2SAT 89; BMI 23.8
[2021-09-21 20:38] VITALS: BP 136/75; PULSE 87; RESP 18; O2SAT 93; O2SAT 94
--- NOTE | 2021-09-21 20:40 | XRR_ITS ---
PROCEDURE INFORMATION: Exam: XR Left Shoulder Exam date and time: 09/21/2021 8:40 PM Age: 65 years old Clinical indication: Injury or trauma; Blunt trauma (contusions or hematomas); Injury details: Fall, pain in left shoulder TECHNIQUE: Imaging protocol: XR Left shoulder. Views: 2 or more views. COMPARISON: CR XR chest 1V portable [id number] 08/31/2021 5:32 AM FINDINGS: Tubes, catheters and devices: Interval placement of large caliber double lumen right central line. Bones/joints: Acute impacted slightly angulated slightly displaced left humeral neck fracture. Heart/Mediastinum: Interval CABG procedure. Soft tissues: Normal. XR/XR shoulder LT min 2V* [id number] IMPRESSION: 1. Acute impacted slightly angulated slightly displaced left humeral neck fracture. 2. Interval CABG procedure. 3. Interval placement of large caliber double lumen right central line.
--- NOTE | 2021-09-21 20:40 | XRR_ITS ---
PROCEDURE INFORMATION: Exam: XR Left Humerus Exam date and time: 09/21/2021 8:40 PM Age: 65 years old Clinical indication: Injury or trauma; Blunt trauma (contusions or hematomas); Arm, upper; Injury details: Fall, pain in left shoulder TECHNIQUE: Imaging protocol: XR Left humerus. Views: 2 or more views. COMPARISON: CR XR chest 1V portable [id number] 08/31/2021 5:32 AM, portable AP upright chest dated August 30, 2021 with visualization of the left humerus. FINDINGS: Bones/joints: Interval appearance of impacted left proximal humeral neck fracture since August 30, 2021. Soft tissues: Normal. XR/[place] [id number] IMPRESSION: Interval appearance of impacted left proximal humeral neck fracture since August 30, 2021.
--- NOTE | 2021-09-21 20:41 | ED_ITS ---
HPI - Fall General: Chief Complaint: Fall Stated Complaint: FALL Time Seen by Provider: 09/21/21 20:36 Source: patient and EMS Mode of arrival: EMS Limitations: no limitations History of Present Illness: HPI Narrative: 65-year-old [facility] She states she tripped and fell and landed on her left shoulder she has had pain in that shoulder since then and she is in a splint. States it is extremely painful any movement rates an 8 out of 10 she denies any her head denies any head pain or neck pain denies any hip pain she has been amatory since the event. Associated symptoms-after fall: Denies abdominal pain, chest pain or headache(s) Review of Systems Const: Denies: fever(s), chills, body aches or change in appetite Eyes: Denies: blurry vision or eye discomfort ENMT: Denies: throat pain or dental pain Card: Denies: chest pain Resp: Denies: dyspnea GI: Denies: abdominal pain, nausea, vomiting or diarrhea : Denies: dysuria Musc: Reports: extremity pain Skin/Breast: Denies: rash Neuro: Denies: headache(s) Psych: Denies: depression Los/Lymph: Denies: easy bruising All/Imm: Denies: urticaria PFSH ED PFSH: Medical History Gastroparesis Hypertension Uncontrolled diabetes mellitus Physical Exam Const: COMMON NORMALS: no acute distress, patient oriented x3 and healthy appearing HENMT: COMMON NORMALS: normocephalic and atraumatic HEAD & SCALP: normocephalic and atraumatic Eye: COMMON NORMALS: Equal, round and reactive pupils present and EOMs intact bilaterally PUPIL: Yes Equal, round and reactive pupils present Neck/C-Spine: COMMON NORMALS: full ROM and supple Chest: COMMONS NORMALS: normal inspection of the chest and normal palpation of entire chest wall Resp: COMMON NORMALS: normal respiratory effort, No retractions, No use of accessory muscles and clear to auscultation bilaterally AUSCULTATION: clear to auscultation bilaterally Cardio: COMMON NORMALS: regular rate, regular rhythm and No murmurs present (Cardio) RATE: regular rate RHYTHM: regular rhythm GI: COMMON NORMALS: Normal to inspection, nondistended, normoactive bowel sounds present, Soft to palpation, non-tender and no masses PALPATION: Yes Soft to palpation Extremity: COMMON NORMALS: full ROM NARRATIVE EXTREMITY EXAM: Distal pulses intact tenderness to left proximal humerus OTHER: Tenderness over left shoulder left proximal humerus distal pulses intact Neuro: COMMON NORMALS: patient oriented x3, moves all extremities and no focal motor deficits Psych: COMMON NORMALS: mental status grossly normal, Normal thought process present and cooperative THOUGHT PROCESS: Normal thought process present Skin: COMMON NORMALS: no rashes or lesions noted and no wounds GENERAL SKIN EXAM: no rashes or lesions noted Course Vital Signs: Vital signs: Vital Signs Temperature 98.5 F 09/21/21 20:28 Pulse Rate 87 09/21/21 20:38 Respiratory Rate 18 09/21/21 20:55 Blood Pressure 136/75 09/21/21 20:38 Pulse Oximetry 94 09/21/21 20:38 MDM - Fall MDM Narrative: Medical decision making narrative: Patient presents here with a proximal humerus fracture from a fall patient placed in a sling patient stable for [facility]. Imaging Data^: Xray Ortho: Attestation: I personally reviewed and interpreted this imaging study as follows: My impression: Proximal humerus fracture minimally displaced Discharge Plan Discharge Patient Disposition: Home Clinical Impression: Fracture of proximal end of humerus Qualifiers: Encounter type: initial encounter Fracture type: closed Fracture morphology: unspecified fracture morphology Laterality: left Qualified Code(s): S42.202A - Unspecified fracture of upper end of left humerus, initial encounter for closed fracture Condition: Stable Prescriptions: No Action lorazepam 0.5 mg Tablet 0.5 mg PO TID PRN (Reason: Anxiety) RF: 0 pantoprazole 40 mg Tablet,Delayed Release (Dr/Ec) 40 mg PO DAILY RF: 0 metoclopramide HCl 10 mg Tablet 10 mg PO .TID & AT BEDTIME RF: 0 insulin aspart U-100 [Novolog Flexpen U-100 Insulin] 100 unit/mL (3 mL) Insulin Pen See Rx Instructions .ROUTE .COMPLEX RF: 0 atorvastatin 40 mg Tablet 40 mg PO BEDTIME 30 Days Qty: 30 RF: 0 clopidogrel 75 mg Tablet 75 mg PO DAILY 30 Days Qty: 30 RF: 0 aspirin [Children's Aspirin] 81 mg Tablet,Chewable 81 mg PO DAILY 30 Days Qty: 30 RF: 0 hydralazine 50 mg Tablet 50 mg PO TID 30 Days Qty: 90 RF: 0 isosorbide mononitrate 30 mg Tablet Extended Release 24 Hr 30 mg PO BID 30 Days Qty: 60 RF: 0 sodium bicarbonate 650 mg Tablet 650 mg PO TID 30 Days Qty: 90 RF: 0 metoprolol tartrate 25 mg Tablet 50 mg PO BID@0900,2100 30 Days Qty: 60 RF: 0 furosemide [Lasix] 40 mg tablet 40 mg PO DAILY 30 Days Qty: 30 RF: 0 potassium chloride [Klor-Con 10] 10 mEq tablet extended release 10 meq PO DAILY 30 Days Qty: 30 RF: 0 venlafaxine 75 mg capsule,extended release 24hr 75 mg PO DAILY RF: 0 Lantus Solostar U-100 Insulin 100 unit/mL (3 mL) insulin pen 8 unit SUBCUT Q12H RF: 0 Discharge Orders: Discharge ED (Routine); Ordered 09/21/21 Ordered By: Candace Ybarra Discharge Diet: Advance as tolerated Discharge Activity: Resume usual activity Patient Instructions: Proximal Humerus Fracture (ED) Coding Level of Care Code ED Secondary Spanish Teacher for Vikas Osorio
[2021-09-21] MEDS: ondansetron 2 mg/ML SDV 2 mL 4 MG IVP (20:54)
[2021-09-21 20:55] VITALS: RESP 18
[2021-09-21] MEDS: morphine 4 mg/mL SDV 1 mL IVP (20:55)
--- NOTE | 2021-09-21 22:39 | XRR_ITS ---
PROCEDURE INFORMATION: Exam: XR Chest Exam date and time: 09/21/2021 10:39 PM Age: 65 years old Clinical indication: Injury or trauma; Fall; Blunt trauma (contusions or hematomas) TECHNIQUE: Imaging protocol: XR of the chest. Views: 1 view. COMPARISON: CR XR chest 1V portable [id number] 08/31/2021 5:32 AM FINDINGS: Tubes, catheters and devices: Large bore right internal jugular central line tip is in the right atrium. Lungs: There is no consolidation. Pleural spaces: The left lateral costophrenic sulcus is blunted. No pneumothorax. Heart/Mediastinum: Cardiomediastinal contours are unremarkable. Bones/joints: Sternal wires are present. There is no displacement to suggest sternal dehiscence. Left proximal humeral fracture noted. XR/XR chest 1V portable [id number] IMPRESSION: 1. Suspect left pleural effusion. 2. Right internal jugular central line tip is in the right atrium. 3. Left proximal humeral fracture.
[2021-09-21 22:45] VITALS: BP 130/71; O2SAT 95
[2021-09-21 23:24] VITALS: BP 118/66; PULSE 85; RESP 16; O2SAT 96
--- NOTE | 2021-09-22 09:47 | DCPLANNER ---
therapeutic case manager had message to schedule a follow up appointment for patient with ortho. therapeutic case manager called the ortho clinic, spoke with Myranda, gave clinic patients information. therapeutic case manager was told that patients information would be printed and reviewed. Clinic will call patient with appointment information.
--- NOTE | 2021-09-23 07:48 | DCPLANNER ---
Patient has a follow up appointment scheduled for Sunday, September 26, 2021 at 8:[address] Gomez at [facility]. Clinic will call patient with appointment information.
--- NOTE | 2021-09-30 12:08 | DCPLANNER ---
Patient had a follow up appointment scheduled with ortho - patient did attend appointment.
== END 2021-09-21 23:33 | disposition home or self-care (01) ==
PROVIDERS: Emergency Provider Emergency Medicine
DX: S42.202A Unspecified fracture of upper end of left humerus, initial encounter for closed fracture (principal); Z79.02 Long term (current) use of antithrombotics/antiplatelets; Z79.82 Long term (current) use of aspirin; Z79.4 Long term (current) use of insulin; I10 Essential (primary) hypertension; E11.9 Type 2 diabetes mellitus without complications; W01.0XXA Fall on same level from slipping, tripping and stumbling without subsequent striking against object, initial encounter
CPT/HCPCS: 71045; 73030; 73060; 96374; 96375; 99284; J2270; J2405

== ENCOUNTER → 2021-10-11 10:59 | Outpatient (BNVA) | payer MEDICARE, MEDICAID, SELFPAY | PROVIDERS: Visit Provider Orthopaedic Surgery | DX: S42.352A Displaced comminuted fracture of shaft of humerus, left arm, initial encounter for closed fracture (principal); X58.XXXA Exposure to other specified factors, initial encounter | CPT/HCPCS: 73030 ==

== ENCOUNTER → 2021-11-09 11:16 | Outpatient (BNVA) | payer MEDICARE, MEDICAID, SELFPAY | PROVIDERS: Visit Provider Orthopaedic Surgery | DX: S42.202A Unspecified fracture of upper end of left humerus, initial encounter for closed fracture (principal); X58.XXXA Exposure to other specified factors, initial encounter | CPT/HCPCS: 73030 ==

== ENCOUNTER 2022-03-05 22:09 | Inpatient (IN) | payer MEDICARE, MEDICAID, SELFPAY ==
[2022-03-05 22:18] VITALS: BP 165/85; PULSE 101; RESP 18; TEMP 36.8; O2SAT 83; BMI 21.9
[2022-03-05 22:30] VITALS: BP 165/88; PULSE 101; RESP 16; O2SAT 93
[2022-03-05] MEDS: haloperidol inj 5 mg/mL INJ 1 mL 2 MG IVP (22:40)
[2022-03-05 22:41] LABS: Basophils % 0.2 %; Eosinophils % 0.2 %; Hematocrit 35.9 % (37.0-47.0); Hemoglobin 11.3 g/dL (11.5-15.3); Lymphocytes # 0.7 10^3/uL (0.8-4.8); Lymphocytes % 7.1 %; Mean Corpuscular HGB Conc 31.5 g/dL (30.0-36.0); Mean Corpuscular Hemoglobin 29.9 pg (28.0-34.0); Mean Platelet Volume 10.6 fL (7.4-10.4); Monocytes # 0.2 10^3/uL (0.2-0.9); Monocytes % 2.3 %; Neutrophils # 8.31 10^3/uL (1.8-7.7); Neutrophils % 89.9 %; Nucleated Red Blood Cells % 0 %; Platelet Count 338 10^3/cmm (130-400); Red Blood Count 3.78 10^6/uL (4.1-5.3); Red Cell Distribution Width 14.9 % (12.1-15.1); White Blood Count 9.3 10^3/uL (4.0-10.0)
[2022-03-05 22:58] LABS: Alanine Aminotransferase 21 U/L (0-33); Albumin Level 3.6 g/dL (3.5-5.2); Alkaline Phosphatase 255 IU/L (35-105); Anion Gap 16.2 (5-19); Aspartate Amino Transferase 28 U/L (0-32); Blood Urea Nitrogen 28 mg/dL (8-23); C Reactive Protein 9.8 mg/L (0.0-4.9); Calcium 9.1 mg/dL (8.5-10.5); Carbon Dioxide 29 mmol/L (22-29); Chloride 92 mmol/L (98-107); Globulin 3.2 g/dL (1.3-4.6); Glomerular Filtration Rate 14.4 mL/min (90-130); Glucose 336 mg/dL (65-115); Lipase 11 U/L (13-60); Osmolality Calculated 295 mOsm/kg (285-295); Potassium 4.2 mmol/L (3.5-5.1); Sodium 133 mmol/L (136-145); Total Bilirubin 0.4 mg/dL (0.15-1.2); Total Protein 6.8 g/dL (6.6-8.7)
--- NOTE | 2022-03-05 22:58 | ED_ITS ---
HPI - Nausea/Vomiting/Diarrhea General: Chief complaint: Nausea/Vomiting/Diarrhea Stated complaint: DEHYDRATION Time Seen by Provider: 03/05/22 22:11 History of Present Illness: 66-year-old dialysis patient here with vomiting. She notes that the vomiting started this afternoon, after eating a chicken sandwich she has been dry heaving since. She denies significant belly pain. No fever or diarrhea. She last had dialysis on Sunday, which was a normal session for her. She does make urine. She received 8 mg of Zofran in the ambulance in route, without any improvement. She also is complaining of shortness of breath. She had to be placed on oxygen on EMS arrival, and she does not use oxygen at home, but had low oxygen saturations. Saturations were 79% on room air here. MD elicited complaint: nausea and vomiting Pertinent past history: other Description of vomiting: food contents Associated nausea: Yes Associated abdominal pain: No Quality: aching Exacerbating factors: none Relieving factors: none Associated symtoms: Reports anorexia and nausea; Denies altered mental status, change in vision, chest pain, cough, diaphoresis, fevers/chills or short of breath Review of Systems Const: Denies: fever(s) or diaphoresis Eyes: Denies: change in vision ENMT: Denies: throat pain Card: Denies: chest pain Resp: Denies: dyspnea, productive cough or non-productive cough GI: Reports: nausea and vomiting; Denies: diarrhea PFS ED PFSH: Medical History Gastroparesis Hypertension Uncontrolled diabetes mellitus Social History Smoking and tobacco status: never smoked Physical Exam Const: EXAM LIMITATIONS: no altered mental status HENMT: COMMON NORMALS: normocephalic, atraumatic and Normal external nose present HEAD & SCALP: normocephalic and atraumatic FACE & SINUS: normal facial exam and face symmetric NOSE: Normal external nose present and Normal nares present Eye: COMMON NORMALS: Equal, round and reactive pupils present and EOMs intact bilaterally PUPIL: Yes Equal, round and reactive pupils present Neck/C-Spine: GENERAL: Yes trachea midline Chest: COMMONS NORMALS: normal inspection of the chest CHEST: Yes Symmetrical chest wall rise Resp: COMMON NORMALS: normal respiratory effort, No use of accessory muscles and clear to auscultation bilaterally AUSCULTATION: clear to auscultation bilaterally Cardio: COMMON NORMALS: regular rhythm RATE: tachycardic RHYTHM: regular rhythm GI: COMMON NORMALS: Normal to inspection, nondistended, normoactive bowel sounds present PALPATION: Yes Tenderness to palpation present (GI) (Epigastric) Details: RUQ Extremity: COMMON NORMALS: no pedal edema Neuro: RADHA COMA SCALE: document GCS findings Sinclair coma scale eye opening: Spontaneous Radha coma scale verbal response: Orientated Radha coma scale motor response: Obey commands Radha coma scale total score: 15 Course Vital Signs: Vital signs: Vital Signs Temperature 98.2 F 03/05/22 22:18 Pulse Rate 101 H 03/06/22 03:11 Respiratory Rate 25 H 03/06/22 03:11 Blood Pressure 147/78 03/06/22 03:11 Pulse Oximetry 90 03/06/22 03:11 MDM - Nausea/Vomiting/Diarrhea Medical Decision Making 66-year-old female with some epigastric type tenderness, and vomiting. Vomiting is improved after 2 mg of IV Haldol. She is mildly nauseated still. She remains short of breath. She is on 2 L now, with saturations of 88%, and respirations of 24 on the monitor. She is mildly tachycardic. She does not have oxygen at home. She has bilateral effusions present on CT, and x-ray indicative of likely fluid overload. The concern is with hypoxia, no access to oxygen at home, she may decompensate before she can have dialysis. She does feel better with oxygen. CT of the belly shows a large gallbladder without wall thickening or dilated bile ducts. Ultrasound of the gallbladder shows similar findings. Lab Data : 03/05/22 22:05 03/05/22 22:05 Radiology Impressions Abdomen/Pelvis CT 03/05/22 23:03 IMPRESSION: 1. Gallbladder dilatation with multiple tiny gallstones. There is no pericholecystic fluid. The gallbladder appears more dilated than on the comparison study. In the presence of right upper quadrant pain, consider correlation with right upper quadrant ultrasound to evaluate for possible Nichole's sign if clinically indicated. 2. Bilateral pleural effusions, worse on the right with right lower lobe collapse/atelectasis. 3. Status post median sternotomy. 4. An indeterminate 1.3 cm lesion in the right kidney. Consider correlation with abdominal sonography, renal mass protocol without and with contrast for further characterization, if clinically indicated. 5. A cystic lesion of the right ovary that has increased in size from the comparison study. Consider non emergent gynecology evaluation. There is an enlarged uterus with multiple fibroids. 6. Additional non emergent findings as described above. THIS REPORT CONTAINS FINDINGS THAT MAY BE CRITICAL TO PATIENT CARE. The findings were verbally communicated via telephone conference with JOSE PACK at 12:15 AM CDT on 03/06/2022. The findings were acknowledged and understood. Gallbladder Ultrasound 03/06/22 00:13 IMPRESSION: 1. Sludge and tiny gallstones in the gallbladder lumen. The stones are best seen in the concurrent CT scan and are likely too small to shadow, thus not well visualized by ultrasound. 2. The patient does not meet criteria for acute cholecystitis given a negative Nichole's sign and no thickening of the gallbladder wall. However, as there is persistent gallbladder distention, non emergent biliary scintigraphy (HIDA scan) may be helpful in evaluation for possible chronic cholecystitis, if clinically indicated. ADDENDUM: 03/06/22 0208 Findings were discussed with JOSE PACK at 03/06/2022 1:53 AM CDT. Laboratory Results WBC 9.3 10^3/uL (4.0-10.0) 03/05/22 22:05 RBC 3.78 10^6/uL (4.1-5.3) L 03/05/22 22:05 Hgb 11.3 g/dL (11.5-15.3) L 03/05/22 22:05 Hct 35.9 % (37.0-47.0) L 03/05/22 22:05 MCV 95.0 fl (81-99) 03/05/22 22:05 MCH 29.9 pg (28.0-34.0) 03/05/22 22:05 MCHC 31.5 g/dL (30.0-36.0) 03/05/22 22:05 RDW 14.9 % (12.1-15.1) 03/05/22 22:05 Plt Count 338 10^3/cmm (130-400) 03/05/22 22:05 MPV 10.6 fL (7.4-10.4) H 03/05/22 22:05 Neut % (Auto) 89.9 % 03/05/22 22:05 Lymph % (Auto) 7.1 % 03/05/22 22:05 Evangeline % (Auto) 2.3 % 03/05/22 22:05 Eos % (Auto) 0.2 % 03/05/22 22:05 Baso % (Auto) 0.2 % 03/05/22 22:05 Neut # (Auto) 8.31 10^3/uL (1.8-7.7) H 03/05/22 22:05 Lymph # (Auto) 0.7 10^3/uL (0.8-4.8) L 03/05/22 22:05 Evangeline # (Auto) 0.2 10^3/uL (0.2-0.9) 03/05/22 22:05 Eos # (Auto) 0.0 10^3/uL (0.0-0.8) 03/05/22 22:05 Baso # (Auto) 0.0 10^3/uL (0.0-0.1) 03/05/22 22:05 Nucleated RBC % (auto) 0 % 03/05/22 22:05 Nucleated RBCs # 0.0 /100WBC 03/05/22 22:05 Sodium 133 mmol/L (136-145) L 03/05/22 22:05 Potassium 4.2 mmol/L (3.5-5.1) 03/05/22 22:05 Chloride 92 mmol/L (98-107) L 03/05/22 22:05 Carbon Dioxide 29 mmol/L (22-29) 03/05/22 22:05 Anion Gap 16.2 (5-19) 03/05/22 22:05 BUN 28 mg/dL (8-23) H 03/05/22 22:05 Creatinine 3.2 mg/dL (0.5-0.9) H 03/05/22 22:05 GFR Calculation 14.4 mL/min (90-130) L 03/05/22 22:05 Glucose 336 mg/dL (65-115) H 03/05/22 22:05 Calculated Osmolality 295 mOsm/kg (285-295) 03/05/22 22:05 Calcium 9.1 mg/dL (8.5-10.5) 03/05/22 22:05 Total Bilirubin 0.4 mg/dL (0.15-1.2) 03/05/22 22:05 AST 28 U/L (0-32) 03/05/22 22:05 ALT 21 U/L (0-33) 03/05/22 22:05 Alkaline Phosphatase 255 IU/L (35-105) H 03/05/22 22:05 C-Reactive Protein 9.8 mg/L (0.0-4.9) H 03/05/22 22:05 Total Protein 6.8 g/dL (6.6-8.7) 03/05/22 22:05 Albumin 3.6 g/dL (3.5-5.2) 03/05/22 22:05 Globulin 3.2 g/dL (1.3-4.6) 03/05/22 22:05 Lipase 11 U/L (13-60) L 03/05/22 22:05 Discharge Plan Discharge Patient Disposition: Admitted As Inpatient Admit Provider: Emma Rosenberg Clinical Impression: Respiratory failure with hypoxia, Bilateral pleural effusion, Vomiting, ESRD on dialysis Condition: Stable Coding Level of Care Code ED Healthcare Educator for Chg Fwd Exam Comprehensive
--- NOTE | 2022-03-05 23:03 | CTR_ITS ---
PROCEDURE INFORMATION: Exam: CT Abdomen And Pelvis Without Contrast Exam date and time: 03/05/2022 11:18 PM Age: 66 years old Clinical indication: Abdominal pain; Localized; Right upper quadrant (ruq); Additional info: Epigastric right upper quadrant pain TECHNIQUE: Imaging protocol: Computed tomography of the abdomen and pelvis without contrast. Radiation optimization: All CT scans at this facility use at least one of these dose optimization techniques: automated exposure control; mA and/or kV adjustment per patient size (includes targeted exams where dose is matched to clinical indication); or iterative reconstruction. COMPARISON: CT abdomen pelvis wo con [id number] 08/11/2021 12:18 AM RADIATION DOSE METRICS: Total DLP (mGy-cm): 1203.91 FINDINGS: Tubes, catheters and devices: There is a central venous line tip at the cavoatrial junction. Lungs: See Pleural spaces finding. Pleural spaces: There is a moderate to large right pleural effusion with collapse/atelectasis of the right lower lobe and a moderate left pleural effusion with atelectatic changes of the left lower lobe. Heart: There has been a median sternotomy for coronary revascularization. Liver: The liver is top-normal in size measuring 17.9 cm in length at the mid axillary line. Gallbladder and bile ducts: The gallbladder is distended, measuring 7.8 x 6.5 x 5.3 cm. Multiple layering tiny gallstones are present . There is no pericholecystic fluid. There is no evidence of biliary ductal dilation. Pancreas: Normal size and homogeneous density. No ductal dilation. Spleen: Normal. No splenomegaly. Adrenal glands: Normal. No mass. Kidneys and ureters: There is no hydronephrosis. No renal or ureteral calculi are identified. Multiple vascular calcifications are seen in both renal jose. A small punctate nonobstructive calculus would be difficult to exclude. In the right kidney, there is a stable rounded 1.3 cm hyperdense indeterminate lesion (series 602, image 21; series 2, image 40). In the right kidney, there is a simple appearing cyst measuring 4 x 3.8 x 3.6 cm, with a punctate peripheral calcification, stable from the comparison study. Stomach and bowel: There is no evidence of small bowel or colonic obstruction. Appendix: No evidence of appendicitis. Intraperitoneal space: No free air. No significant fluid collection. Vasculature: There is mild atherosclerotic calcification of the abdominal aorta and its branches without aneurysm. Lymph nodes: No enlarged retroperitoneal or mesenteric lymph nodes. Urinary bladder: The bladder shows a normal contour and is free of calcific opacities. Reproductive: There is an enlarged uterus with multiple calcified uterine fibroids as large as 3.2 cm. There is a 3.6 x 2.8 cm cyst in the right ovary, larger than on the comparison study. Bones/joints: There is a moderate chronic superior endplate compression fracture of T12, stable from the comparison examination. There is prominent facet arthrosis at L5-S1 and mild grade 1 anterolisthesis of L5 on S1. Soft tissues: Unremarkable. CT/CT abdomen pelvis wo con [id number] IMPRESSION: 1. Gallbladder dilatation with multiple tiny gallstones. There is no pericholecystic fluid. The gallbladder appears more dilated than on the comparison study. In the presence of right upper quadrant pain, consider correlation with right upper quadrant ultrasound to evaluate for possible Nichole's sign if clinically indicated. 2. Bilateral pleural effusions, worse on the right with right lower lobe collapse/atelectasis. 3. Status post median sternotomy. 4. An indeterminate 1.3 cm lesion in the right kidney. Consider correlation with abdominal sonography, renal mass protocol without and with contrast for further characterization, if clinically indicated. 5. A cystic lesion of the right ovary that has increased in size from the comparison study. Consider non emergent gynecology evaluation. There is an enlarged uterus with multiple fibroids. 6. Additional non emergent findings as described above. THIS REPORT CONTAINS FINDINGS THAT MAY BE CRITICAL TO PATIENT CARE. The findings were verbally communicated via telephone conference with JOSE PACK at 12:15 AM [email or web address] on 03/06/2022. The findings were acknowledged and understood.
[2022-03-06] VITALS (16 sets, daily range): BP systolic 106–166; BP diastolic 68–93; PULSE 85–109; RESP 14–25; TEMP 36.4–36.9; O2SAT 87–96; BMI 19.0
--- NOTE | 2022-03-06 | USR_ITS ---
ADDENDUM US/US renal BI with PV bladder Findings were discussed with Emma Rosenberg at 03/06/2022 6:20 AM CDT. Addendum Dictated By: Kel Prajapati MD Addendum Signed By: Kel Prajapati MD Signed Date/Time: 03/06/22621 Addendum Cosigned By: PROCEDURE INFORMATION: Exam: US Retroperitoneal; Complete; Kidneys and Bladder Exam date and time: 03/06/2022 4:06 AM Age: 66 years old Clinical indication: Condition or disease; Kidney or ureter condition; Other: RT renal lesion; Additional info: B/l renal US: Dx: R renal lesion TECHNIQUE: Imaging protocol: Real-time ultrasound of the retroperitoneum with image documentation. Complete exam focused on the kidneys and bladder. COMPARISON: US gall bladder [id number] 03/06/2022 12:25 AM FINDINGS: Right kidney: The right kidney measures 8.8 x 3.5 x 5.3 cm. It shows normal vascularity on color Doppler images. Cortical thickness is normal 1.13 cm. There is normal cortical echogenicity. In the mid to upper pole of the right kidney, there is a 1 cm anechoic area without vascularity consistent with a cyst. It demonstrates no flow on color Doppler. Left kidney: The left kidney measures 8.6 x 4.1 x 4.9 cm. There is normal left renal vascularity on color Doppler images. The left renal cortex measures 1.7 cm thick, normal. There is normal renal cortical echogenicity. In the lower pole of the left kidney, there is a punctate, nonobstructive calculus with minimal shadowing. In the lower pole of the left kidney, there is an anechoic lesion measuring 3 x 3.5 x 2.6 cm without flow on color Doppler images, consistent with a cyst. Urinary bladder: Mild thickening of the bladder wall that may be secondary to infection or underdistension. US/US renal BI with PV bladder IMPRESSION: 1. Ultrasound findings are consistent with renal cysts in the upper pole of the right kidney and in the lower pole of the left kidney. 2. However, the 1 cm lesion in the upper pole of the right kidney is quite small for ultrasound characterization. Consider the an interval follow-up MRI without and with contrast. 3. A small, punctate nonobstructive calculus in the lower pole of the left kidney. 4. Mild thickening of the bladder wall that may be secondary to infection/cystitis or underdistension. Dictated By: Kel Prajapati MD Signed By: Kel Prajapati MD Signed Date/Time: 03/06/22620 DD/ 5 MTD US/US renal BI* [id number] IMPRESSION: 1. Ultrasound findings are consistent with renal cysts in the upper pole of the right kidney and in the lower pole of the left kidney. 2. However, the 1 cm lesion in the upper pole of the right kidney is quite small for ultrasound characterization. Consider the an interval follow-up MRI without and with contrast. 3. A small, punctate nonobstructive calculus in the lower pole of the left kidney. 4. Mild thickening of the bladder wall that may be secondary to infection/cystitis or underdistension. ADDENDUM: 03/06/22621 Findings were discussed with Emma Rosenberg at 03/06/2022 6:20 AM CDT.
--- NOTE | 2022-03-06 00:13 | USR_ITS ---
PROCEDURE INFORMATION: Exam: US Abdomen, Limited; Right Upper Quadrant Exam date and time: 03/06/2022 12:25 AM Age: 66 years old Clinical indication: Vomiting; Additional info: Ruq pain, vomiting TECHNIQUE: Imaging protocol: US abdomen. Real time ultrasound with image documentation. Limited exam focused on the right upper quadrant. COMPARISON: US gall bladder [id number] 08/21/2021 10:03 PM FINDINGS: Liver: The liver is normal in size, measuring 15.4 cm in length. It shows normal homogeneous echotexture. Gallbladder: There are no shadowing gallstones. The gallbladder wall thickness is 3.3 mm. There is no pericholecystic fluid. The fire prevention specialist reports a negative Nichole's sign. Biliary ducts: The common bile duct measures 5.5 mm in diameter, normal for the patient's age. Pancreas: The pancreas appears normal. Right kidney: The right kidney measures 9.7 x 5.3 x 4.6 cm. There is no hydronephrosis. Aorta: No abdominal aortic aneurysm is identified in the visualized proximal and mid segments of the aorta. Inferior vena cava: The inferior vena cava is visualized segmentally and appears patent. US/US gall bladder [id number] IMPRESSION: 1. Sludge and tiny gallstones in the gallbladder lumen. The stones are best seen in the concurrent CT scan and are likely too small to shadow, thus not well visualized by ultrasound. 2. The patient does not meet criteria for acute cholecystitis given a negative Nichole's sign and no thickening of the gallbladder wall. However, as there is persistent gallbladder distention, non emergent biliary scintigraphy (HIDA scan) may be helpful in evaluation for possible chronic cholecystitis, if clinically indicated.
--- NOTE | 2022-03-06 02:23 | XRR_ITS ---
PROCEDURE INFORMATION: Exam: XR Chest Exam date and time: 03/06/2022 2:47 AM Age: 66 years old Clinical indication: Dyspnea; Prior surgery; Surgery date: 6+ months; Surgery type: Cabg; Additional info: SOB TECHNIQUE: Imaging protocol: XR of the chest. Views: 1 view. COMPARISON: CR XR chest 1V portable [id number] 09/21/2021 10:44 PM FINDINGS: Tubes, catheters and devices: There is a right internal jugular central venous line with its tip in the right atrium. EKG monitoring leads overlie the thoracic wall. Lungs: Bilateral areas of consolidation subjacent to pleural effusions. Pleural spaces: There are bilateral pleural effusions, larger on the right and moderate on the left with underlying consolidation/atelectasis. No pneumothorax. Heart/Mediastinum: There has been a median sternotomy for coronary revascularization. Bones/joints: See Heart/Mediastinum finding. XR/XR chest 1V portable [id number] IMPRESSION: Bilateral pleural effusions, larger on the right and moderate on the left with subjacent atelectatic changes. Superimposed infection is not excluded. Clinical correlation is necessary.
--- NOTE | 2022-03-06 02:58 | PM.HP ---
Providers/Chief Complaint Chief Complaint: DEHYDRATION History of Present Illness The patient is a 58-year-old female who presented to [place] of nausea. She states that her ?stomach was bothering her? as of noon of March 05, 2022. She also admits to dyspnea. Upon further questioning she indicates that her last dialysis session was on Sunday 0.7 2021. Prior to that she indicates that she is missed 5 hemodialysis sessions. Although she does experience nausea, she denies vomiting. She denies fever, rigors, vomiting, cough, wheeze, abdominal pain, diarrhea, myalgia, chest pain. She denies peripheral edema. She presents for further evaluation Review of Systems General: Reports: 10 or more systems reviewed and unremarkable except in HPI and below Medications/Allergies Home Medications Medication Instructions Recorded Confirmed Last Taken Type insulin aspart U-100 100 unit/mL See Rx Instructions .ROUTE .COMPLEX 08/21/21 11/09/21 08/29/21 08:30 History (3 mL) subcutaneous pen (Novolog 10 units Flexpen U-100 Insulin aspart) lorazepam 0.5 mg tablet 0.5 mg PO TID PRN 08/21/21 11/09/21 08/20/21 21:00 History metoclopramide HCl 10 mg tablet 10 mg PO .TID & AT BEDTIME 08/21/21 11/09/21 08/20/21 History pantoprazole 40 mg tablet,delayed 40 mg PO DAILY 08/21/21 11/09/21 08/20/21 History release insulin glargine 100 unit/mL (3 8 unit SUBCUT Q12H 08/29/21 11/09/21 Unknown History mL) subcutaneous pen (Lantus Solostar U-100 Insulin) venlafaxine 75 mg capsule,extended 75 mg PO DAILY 08/29/21 11/09/21 Unknown History release 24 hr hydrocodone 5 mg-acetaminophen 325 1 tab PO Q6H PRN #14 tab 09/21/21 11/09/21 Unknown Rx mg tablet Allergies Allergy/AdvReac Type Severity Reaction Status Date / Time azithromycin Allergy Unknown Verified 11/09/21 11:13 mycins Allergy Unknown Uncoded 11/09/21 11:13 PFSH Acute PFSH: Medical History Gastroparesis Hypertension Uncontrolled diabetes mellitus Social History Smoking and tobacco status: never smoked Vitals/I&O/Wt Last Vital Signs Temp 98.2 F 03/05/22 22:18 Pulse 101 H 03/05/22 22:30 Resp 16 03/05/22 22:30 BP 165/88 03/05/22 22:30 Pulse Ox 93 03/05/22 22:30 Weight last 48 hrs Weight 54.431 kg Physical Exam Narrative: General: -Alert -No acute distress -No dyspnea -No tachypnea Head: -Atraumatic -Normocephalic Eyes: -Pupils equally round and reactive to light and accommodation -Extraocular muscles intact Neurological: -Cranial nerves II-XII intact Neck: -No jugular venous distention -No thyromegaly -No cervical lymphadenopathy Heart: -Regular rate -Regular rhythm -No murmurs -No gallops -No rubs Lungs: -No wheeze -No rhonchi -No rales ? Abdomen: -Normal bowel sounds in all four quadrants -No rebound -No guarding -No tenderness Extremities: -2/4 pulse in all four extremities -No clubbing -No cyanosis -No edema -No calf tenderness present bilaterally -Negative Andrés?s sign bilaterally Musculoskeletal: -5/5 bilateral upper extremity strength -5/5 bilateral lower extremity strength -Sensorium of bilateral upper extremities are equal and intact -Sensorium of bilateral lower extremities are equal and intact ? Additional Details / Additional Findings / Exceptions / Miscellaneous: Data : 03/05/22 22:05 03/05/22 22:05 A&P Assessment and plan (1) Respiratory failure with hypoxia: Status: Acute Plan Dyspnea secondary to bilateral pleural effusion which is secondary to the patient's medical noncompliance with hemodialysis. On the morning of March 06, 2022 will need to request a nephrology evaluate the patient for hemodialysis. If we see no improvement/resolution, we may consider checking an echocardiogram as well given her history of CHF with last documented ejection fraction 45-50% Medical noncompliance. The patient will need to be counseled regarding medical compliance Hyponatremia, chronic, intermittent. Will monitor sodium level intermittently Gastroparesis End stage renal disease for which the patient is hemodialysis dependent. Will monitor serum electrolytes periodically. Will need to consult nephrology on the morning of March 06, 2022 Depression Anxiety History of hyperuricemia History of vitamin D deficiency Anemia, chronic. We will monitor him globin level intermittently. Check serum ferritin, iron panel, fecal occult blood CHF, ejection fraction 45-50% Coronary artery disease, status post GA, status post CABG Diabetes. Will check fasting glucose 2 before meals and at bedtime and provide some slight scale GERD Hyper lipemia Hypertension Cholelithiasis with gallbladder wall distention but not gallbladder wall thickening. HIDA scan pending. Nothing by mouth Right kidney lesion. Bilateral renal ultrasound pending Right ovarian lesion. Outpatient follow-up with obstetrics/gynecology upon discharge DVT Proflex is. Bilateral SCD Attestations Medical Necessity Statement*: The patient's anticipate length of stay is greater than 2 midnights for treatment of her nausea as well as her fluid overload with resultant bilateral pleural effusion Coding Level of Care Code Acute Business Systems Analyst for Chg Jo Diagnoses Respiratory failure with hypoxia J96.91
[2022-03-06 03:39] LABS: Magnesium 2.1 mg/dL (1.7-2.3); Phosphorus 2.5 mg/dL (2.5-4.5)
--- NOTE | 2022-03-06 03:50 | USR_ITS ---
PROCEDURE INFORMATION: Exam: US Retroperitoneal; Complete; Kidneys and Bladder Exam date and time: 03/06/2022 4:06 AM Age: 66 years old Clinical indication: Condition or disease; Kidney or ureter condition; Other: RT renal lesion; Additional info: B/l renal US: Dx: R renal lesion TECHNIQUE: Imaging protocol: Real-time ultrasound of the retroperitoneum with image documentation. Complete exam focused on the kidneys and bladder. COMPARISON: US gall bladder [id number] 03/06/2022 12:25 AM FINDINGS: Right kidney: The right kidney measures 8.8 x 3.5 x 5.3 cm. It shows normal vascularity on color Doppler images. Cortical thickness is normal 1.13 cm. There is normal cortical echogenicity. In the mid to upper pole of the right kidney, there is a 1 cm anechoic area without vascularity consistent with a cyst. It demonstrates no flow on color Doppler. Left kidney: The left kidney measures 8.6 x 4.1 x 4.9 cm. There is normal left renal vascularity on color Doppler images. The left renal cortex measures 1.7 cm thick, normal. There is normal renal cortical echogenicity. In the lower pole of the left kidney, there is a punctate, nonobstructive calculus with minimal shadowing. In the lower pole of the left kidney, there is an anechoic lesion measuring 3 x 3.5 x 2.6 cm without flow on color Doppler images, consistent with a cyst. Urinary bladder: Mild thickening of the bladder wall that may be secondary to infection or underdistension.
[2022-03-06 05:05] LABS: Ferritin 870 ng/mL (15-150); Iron 40 ug/dL (37-145); Percent Saturation 20.1 % (20-50); Total Iron Binding Capacity 199 mcg/dl; Unsaturated Iron Binding 159 ug/dL (112-347)
--- NOTE | 2022-03-06 05:22 | PC.NURSE ---
Abril Koehler, daughter, called for update on pt. Update given. Abril concerned with pt previous history stating she was hospitalized here in July with a heart attack. Also stating pt had a heart cath done in [place], [place] by Dr. Schmidt who does not want pt to have any surgeries until her heart has been cleared. Abril also reports they've been told pt needs peritoneal dialysis in addition to her M-W- hemodialysis. Pt currently scheduled for 03/16/[address] Schmidt for a procedure. Abril would like to be notified of any changes at [phone] stating that she is unable to be with the pt d/t work.
[2022-03-06] MEDS: insulin lispro 100 unit/1 mL 16 UNIT SUBCUT (06:05)
[2022-03-06 06:28] LABS: Parathyroid Hormone 69.6 pg/mL (15-65)
[2022-03-06 06:39] LABS: Glucose Point of Care 423 mg/dL (70-110)
[2022-03-06 07:38] LABS: Glucose Point of Care 361 mg/dL (70-110)
[2022-03-06 07:45] LABS: Glucose 438 mg/dL (65-115)
--- NOTE | 2022-03-06 08:03 | PC.NURSE ---
informed nurse O2 was low
[2022-03-06 08:58] LABS: Estmated Average Glucose 214; Hemoglobin A1C 9.1 % (4.0-6.0)
[2022-03-06] MEDS: insulin lispro 100 unit/1 mL SUBCUT ×2 (09:55→12:23)
--- NOTE | 2022-03-06 10:36 | PM.MISC ---
Miscellaneous Note Note: Patient is on 3 L nasal cannula, wean down to room air, she is agreeable for thoracentesis, I have consulted nephrology as well for dialysis Patient is stating that she only experiences dry heaves at home she never experienced any emesis, she has history of diabetic gastroparesis Noted hemoglobin A1c of 9.1 Patient is laying comfortably in her bed Saturating well on 2 L nasal cannula Hemodynamically stable Does not look fluid overloaded No abdominal pain S1, S2 EOMI, PERRLA Diabetic gastroparesis No active nausea, plan to discharge her tomorrow after thoracentesis End-stage renal disease, noncompliant, nephro consulted Dialysis today Full code Discharge tomorrow Hold DVT prophylaxis for thoracentesis
[2022-03-06 11:16] LABS: Lactate Dehydrogenase 203 U/L (135-214)
[2022-03-06 11:19] LABS: Glucose Point of Care 220 mg/dL (70-110)
--- NOTE | 2022-03-06 11:44 | PM.CONSULT ---
Providers/Reason For Consult Consulting Physician/Specialty*: Nephrology Reason for Consult*: ESRD Attending Physician: Chris Rizzo MD History of Present Illness History of Present Illness Thank you for consultation, today I reviewed this pleasant 66-year-old female that I know from prior hospitalizations. She presents with some nausea, some dyspnea. On x-ray she was found to have bilateral pleural effusions, larger on the right than on the left. She was has global mild anasarca, robust hemodynamics but was otherwise relatively asymptomatic. Her nausea has now settled down with medications administered to her since hospitalization. On dialysis on Sunday, Sunday and Sunday. She claims to have good compliance, however, evidently she has missed a couple of dialysis sessions. She claims to be dialyzed last week. On dialysis since February 2021. No other acute issues at this time. Dialysis catheter in the right chest wall seems to be working well with no recent issues. Review of Systems Narrative: 12 point review of systems completed per HPI and subjective assessment, this includes Constitutional: No weakness, fatigue Respiratory: No SOB on exertion, comfortable at rest CardioVasc: No chest pain, palpitations Gastrointestinal: No nausea, no vomiting Neurological: No seizures, no AMS Derm: No new rashes, lesions or wounds Immunological: No seasonal and no food allergies Medications/Allergies Home Medications Medication Instructions Recorded Confirmed Last Taken Type insulin aspart U-100 100 unit/mL See Rx Instructions .ROUTE .COMPLEX 08/21/21 11/09/21 08/29/21 08:30 History (3 mL) subcutaneous pen (Novolog 10 units Flexpen U-100 Insulin aspart) lorazepam 0.5 mg tablet 0.5 mg PO TID PRN 08/21/21 11/09/21 08/20/21 21:00 History metoclopramide HCl 10 mg tablet 10 mg PO .TID & AT BEDTIME 08/21/21 11/09/21 08/20/21 History pantoprazole 40 mg tablet,delayed 40 mg PO DAILY 08/21/21 11/09/21 08/20/21 History release insulin glargine 100 unit/mL (3 8 unit SUBCUT Q12H 08/29/21 11/09/21 Unknown History mL) subcutaneous pen (Lantus Solostar U-100 Insulin) venlafaxine 75 mg capsule,extended 75 mg PO DAILY 08/29/21 11/09/21 Unknown History release 24 hr hydrocodone 5 mg-acetaminophen 325 1 tab PO Q6H PRN #14 tab 09/21/21 11/09/21 Unknown Rx mg tablet Allergies Allergy/AdvReac Type Severity Reaction Status Date / Time azithromycin Allergy Unknown Verified 11/09/21 11:13 mycins Allergy Unknown Uncoded 11/09/21 11:13 Current Medications Generic Name Dose Route Start Last Admin Trade Name Freq PRN Reason Stop Dose Admin Insulin Human Lispro 0 unit 03/06/22 08:00 03/06/22 09:55 Insulin Lispro 100 Unit/1 Ml SUBCUT 14 unit TIDWM ALYSSA Administration Protocol PFSH Acute PFSH: Medical History Gastroparesis Hypertension Uncontrolled diabetes mellitus Social History Smoking and tobacco status: never smoked Vitals/I&O/Wt Last Vital Signs Temp 98.3 F 03/06/22 08:00 Pulse 109 H 03/06/22 08:00 Resp 20 H 03/06/22 08:00 BP 148/68 03/06/22 08:00 Pulse Ox 87 L 03/06/22 08:00 Weight last 48 hrs Weight 47.083 kg Weight 54.431 kg Physical Exam Narrative: Constitutional: Awake, comfortable HEENT: Wet mucosa, no jvp, non icteric Lungs: Bilaterally clear without discernible wheeze, rales in all lung zones CVS: S1 S2, no murmurs Abdo: Soft, BS ok Ext 4: Minimal edema, peripheral perfusion with no cyanosis Neurological: Grossly non-focal Data : 03/05/22 22:05 03/06/22 07:12 A&P Assessment and plan (1) ESRD on dialysis: Status: Acute Plan 1. End-stage renal disease For dialysis today with ultrafiltration 3.5 L on a 3 potassium bath Evidently she does have some residual kidney function with a baseline GFR less likely in the teen range. We will initiate torsemide for her as well to help with volume management when she skips dialysis. Dose medication for GFR less than 15 2. Dyspnea Likely to be hypervolemic from skipping dialysis and questionable compliance with medication. As mentioned above reinitiate dialysis with 3.5 L of ultrafiltrate today and reinitiation of diuretics. For thoracentesis of the right lung tomorrow. Consideration for left following this. 3. Hemodynamics Remained stable, close monitoring with ultrafiltration and diuretics. 4. Chronic ESRD issues These are not pressing, can be handled as an outpatient as part of standard monthly management. Ian Garay MD Nephrology [phone] Patient seen and examined via telemedicine, with the assistance of the bedside RN > 25 min spent in evaluation and mgmt of patient Coding Level of Care Code Acute Motor Racer for Chg Fwd Diagnoses ESRD on dialysis N18.6; Z99.2
[2022-03-06] MEDS: TORSEmide 20 mg Tablet 40 MG PO (12:23)
[2022-03-06] MEDS: heparin, porcine 1,000 unit/mL INJ 10 mL 10000 UNIT HE (15:49)
--- NOTE | 2022-03-06 17:36 | PC.HD ---
Bed scale not zeroed, unable to weigh pt pre and post dialysis.
[2022-03-06 18:06] LABS: Glucose Point of Care 78 mg/dL (70-110)
[2022-03-06] MEDS: carvedilol 12.5 mg Tablet PO (19:46)
[2022-03-06] MEDS: amlodipine 10 mg Tablet PO (19:46)
[2022-03-06 21:00] LABS: Glucose Point of Care 275 mg/dL (70-110)
[2022-03-06] MEDS: insulin glargine 100 units/1 mL 10 UNIT SUBCUT (21:37)
[2022-03-07] VITALS (11 sets, daily range): BP systolic 153–172; BP diastolic 74–91; PULSE 58–105; RESP 12–18; TEMP 36.4–36.7; O2SAT 75–98
[2022-03-07 02:25] LABS: INR 0.86 (0.8-1.2)
--- NOTE | 2022-03-07 03:50 | NM_ITS ---
WS: [id number] NUCLEAR MEDICINE HIDA SCAN CLINICAL INFORMATION: pain TECHNIQUE: Following intravenous administration of 8.2 mCi of technetium 99m mebrofenin, images of th e abdomen were obtained over the course of 60 minutes. Next, gallbladder ejection fraction was determ ined by obtaining preprandial and one-hour postprandial images of the gallbladder following oral grisel stion of Ensure. COMPARISON: August 23, 2021 FINDINGS: Normal hepatic uptake at 5 minutes. Hepatomegaly. Enlargement of the RIGHT hepatic lobe. Normal small bowel and common bile duct activity. Gallbladder is visualized by 30 minutes. No evidence of acute c holecystitis. No significant gallbladder emptying at 69 minutes. NM/NM hepatobiliary w phar* [id number] IMPRESSION: Findings are similar in appearance to August 23, 2021 1. No significant gallbladder emptying at 69 minutes compatible with gallbladd er dysfunction and suspicious for chronic cholecystitis. 2. No evidence of acute cholecystitis. 3. Hepatomegaly with enlargement RIGHT hepatic lobe. 4. Normal small bowel activity.
[2022-03-07 06:06] LABS: Basophils # 0.1 10^3/uL (0.0-0.1); Basophils % 0.7 %; Eosinophils # 0.1 10^3/uL (0.0-0.8); Eosinophils % 1.1 %; Hematocrit 39.6 % (37.0-47.0); Hemoglobin 12.4 g/dL (11.5-15.3); Lymphocytes # 1.4 10^3/uL (0.8-4.8); Lymphocytes % 16.1 %; Mean Corpuscular HGB Conc 31.3 g/dL (30.0-36.0); Mean Corpuscular Volume 95.9 fl (81-99); Mean Platelet Volume 10.6 fL (7.4-10.4); Monocytes # 0.6 10^3/uL (0.2-0.9); Monocytes % 7.3 %; Neutrophils % 74.5 %; Nucleated Red Blood Cells % 0 %; Platelet Count 376 10^3/cmm (130-400); Red Blood Count 4.13 10^6/uL (4.1-5.3); Red Cell Distribution Width 15.2 % (12.1-15.1); White Blood Count 8.7 10^3/uL (4.0-10.0)
[2022-03-07 06:37] LABS: Alanine Aminotransferase 19 U/L (0-33); Albumin Level 3.4 g/dL (3.5-5.2); Alkaline Phosphatase 236 IU/L (35-105); Anion Gap 18.8 (5-19); Aspartate Amino Transferase 20 U/L (0-32); Blood Urea Nitrogen 22 mg/dL (8-23); Carbon Dioxide 24 mmol/L (22-29); Chloride 94 mmol/L (98-107); Creatinine Clr Calc Pharmacy 0; Globulin 3.5 g/dL (1.3-4.6); Glomerular Filtration Rate 18.3 mL/min (90-130); Glucose 424 mg/dL (65-115); Osmolality Calculated 295 mOsm/kg (285-295); Potassium 4.8 mmol/L (3.5-5.1); Sodium 132 mmol/L (136-145); Total Bilirubin 0.3 mg/dL (0.15-1.2); Total Protein 6.9 g/dL (6.6-8.7)
--- NOTE | 2022-03-07 08:00 | US_ITS ---
WS: [id number] ULTRASOUND-GUIDED THORACENTESIS CLINICAL INFORMATION: Right-sided thoracentesis, symptomatic pleural effusion COMPARISON: None. PROCEDURE: Informed consent: The risks, benefits, and alternatives of the procedure were discussed with the valente ent. Verbal and written consent was obtained. Timeout: A timeout was performed to confirm the correct patient, procedure, and site. Site: RIGHT Preparation: A suitable skin site was identified. The patient was prepped and draped in usual sterile fashion. Lidocaine 1% was used for local anesthesia. Catheter: 4 Mongolian One-Step catheter. Fluid Volume: 1000 ml Color: Clear yellow Sent to the laboratory for analysis Complications: No pneumothorax on the post thoracentesis radiograph Patient disposition: Discharged from the department in stable condition. / thoracentesis [id number] IMPRESSION: Uncomplicated ultrasound-guided RIGHT thoracentesis.
[2022-03-07] MEDS: TORSEmide 20 mg Tablet 40 MG PO (08:32)
[2022-03-07] MEDS: LORazepam 2 mg/mL INJ 1 mL 0.5 MG IVP (08:32)
[2022-03-07 08:58] LABS: Glucose Point of Care 360 mg/dL (70-110)
[2022-03-07 09:35] LABS: Glucose Point of Care 491 mg/dL (70-110)
[2022-03-07] MEDS: carvedilol 12.5 mg Tablet PO ×2 (09:52→18:10)
[2022-03-07] MEDS: levothyroxine 75 mcg Tablet 37.5 MCG PO (09:52)
[2022-03-07] MEDS: insulin lispro 100 unit/1 mL 15 UNIT SUBCUT (10:38)
[2022-03-07] MEDS: ondansetron 2 mg/ML SDV 2 mL 4 MG IVP (10:41)
--- NOTE | 2022-03-07 11:15 | PM.PN ---
Subjective Subjective: Positive HIDA scan Patient is endorsing feeling better no episode of emesis Did talk to her daughter yesterday, she is stating that she had gallbladder surgery scheduled at [facility] and for preoperative work-up she also has another cardiac work-up on March 16 and they would like to pursue further investigation at that hospital instead of here She is agreeable for thoracentesis Today patient received multiple doses of short acting insulin for hyperglycemia I have also given her a bolus of fluids Will do home O2 eval Vitals/I&O/Wt Last Vital Signs Temp 98.1 F 03/07/22 11:07 Pulse 103 H 03/07/22 11:07 Resp 12 03/07/22 11:07 BP 172/91 03/07/22 11:07 Pulse Ox 75 L 03/07/22 11:09 03/06/22 03/07/22 03/07/22 22:59 06:59 14:59 Intake Total 120 / 120 Output Total 3500 / 3500 Balance -3380 / -3380 Weight last 48 hrs Weight 0 g Weight 47.083 kg Weight 54.431 kg Physical Exam Narrative: Patient lying comfortably in her bed Currently on 2 L nasal cannula No active abdominal pain, no active emesis EOMI, PERRLA No signs of meningitis Awake and alert S1, S2 No signs of edema Data : 03/07/22 05:16 03/07/22 05:16 A&P Assessment and plan (1) Hypoxia: Status: Acute (2) Vomiting: Status: Acute (3) ESRD on dialysis: Status: Acute (4) Gallstones: Status: Acute Plan Recurrent retching Gallstones however no acute cholecystitis Positive HIDA scan She also has poorly controlled type 2 diabetes, diabetic gastroparesis History of CABG No active chest pain She is scheduled for pulmonary surgery at [place] also has preoperative work-up on March 16 Daughter is agreeable for further investigation and work-up at that hospital instead of here Poorly controlled type 2 diabetes Hemoglobin A1c 10.2 On last admission she went into DKA I will give her a bolus of fluid, she received 25 units of short acting insulin so far Hypoxia without respiratory failure No signs of pneumonia Bilateral pleural effusion She is awaiting right-sided thoracentesis Home O2 eval End-stage renal disease Sunday Discharge today versus tomorrow Home O2 eval DVT prophylaxis has been held for thoracentesis Attestations Medical Necessity Statement*: Reevaluate later today discharge today versus tomorrow Time Spent in Patient Care: 30mins Coding Level of Care Code Acute Vp Production for Chg Fwd Diagnoses Hypoxia R09.02 Vomiting R11.10 ESRD on dialysis N18.6; Z99.2 Gallstones K80.20
[2022-03-07] MEDS: insulin lispro 100 unit/1 mL 10 UNIT SUBCUT (11:34)
[2022-03-07] MEDS: insulin regular-human 10 UNIT in SYRINGE 1 EACH IVP (11:46)
[2022-03-07] MEDS: sodium chloride 0.9% 500 ML IV (11:46)
--- NOTE | 2022-03-07 12:15 | XR_ITS ---
WS: [id number] CHEST XRAY TECHNIQUE: Portable chest. CLINICAL INFORMATION: Post Thoracentesis COMPARISON: March 06, 2022 FINDINGS: RIGHT central venous catheter is unchanged. Heart: Cardiomegaly. Sternotomy. CABG. Lungs: Improved RIGHT pleural effusion post thoracentesis. Moderate residual bilateral pleural effusi ons with compressive atelectasis in the lung bases. No pneumothorax. Bones: Osteopenia. Chronic appearing comminuted fracture LEFT humeral neck. XR/XR chest 1V portable [id number] IMPRESSION: 1. Improved RIGHT pleural effusion post thoracentesis. 2. Moderate residual bilateral pleural effusions with compressive atelectasis in the lung bases. 3. No pneumothorax.
[2022-03-07 12:56] LABS: Mononuclear %, Pleural Fluid 89 %; Mononuclear, Pleural Fluid # 0.025 10^3/uL; Polynuclear Cells, Pleural # 0.003 10^3/uL; Polynuclear Cells, Pleural % 11 %
--- NOTE | 2022-03-07 13:01 | PM.PN ---
Subjective Subjective: No new issues Ms. Temple today. She just returned from thoracentesis and did have dialysis yesterday. She feels better in regard to her breathing. She is pending discharge today. No other new issues. No uremic symptoms. No extremity edema. Chemistry reviewed, minor noncritical aberration Vitals/I&O/Wt Last Vital Signs Temp 98.1 F 03/07/22 11:07 Pulse 103 H 03/07/22 11:07 Resp 12 03/07/22 11:07 BP 172/91 03/07/22 11:07 Pulse Ox 75 L 03/07/22 11:09 03/06/22 03/07/22 03/07/22 22:59 06:59 14:59 Intake Total 120 / 120 0.1 / 0.1 Output Total 3500 / 3500 Balance -3380 / -3380 0.1 / 0.1 Weight last 48 hrs Weight 0 g Weight 47.083 kg Weight 54.431 kg Physical Exam Narrative: Constitutional: Awake, comfortable HEENT: Wet mucosa, no jvp, non icteric Lungs: Bilaterally clear without discernible wheeze, rales in all lung zones CVS: S1 S2, no murmurs Abdo: Soft, BS ok Ext 4: Minimal edema, peripheral perfusion with no cyanosis Neurological: Grossly non-focal Data : 03/07/22 05:16 03/07/22 05:16 A&P Assessment and plan (1) ESRD on dialysis: Status: Acute Plan 1. End-stage renal disease I anticipate discharge, however, she remains in the hospital tomorrow I will dialyze her. Dose medication for GFR less than 15 2. Dyspnea Likely to be hypervolemic from skipping dialysis and questionable compliance with medication. Thoracentesis has helped 3. Hemodynamics Remained stable, close monitoring with ultrafiltration and diuretics. 4. Chronic ESRD issues These are not pressing, can be handled as an outpatient as part of standard monthly management. Ian Garay MD Nephrology [phone] Patient seen and examined via telemedicine, with the assistance of the bedside RN > 25 min spent in evaluation and mgmt of patient Attestations Medical Necessity Statement*: eval for ESRD Coding Level of Care Code Acute Hand Upper And Bottom Lacer for Chg Fwd Diagnoses ESRD on dialysis N18.6; Z99.2
--- NOTE | 2022-03-07 13:16 | PC.NURSE ---
Spoke with Dr. Rizzo via Voalte regarding patients blood sugar of 552. gave regular insuline iv push, 500ml fluid bolus, 10u of Humalog, and will be giving 10u of Lantus per physician order.
[2022-03-07] MEDS: insulin glargine 100 units/1 mL 10 UNIT SUBCUT (13:19)
[2022-03-07 14:04] LABS: Glucose Point of Care 552 mg/dL (70-110)
[2022-03-07 14:07] LABS: Appearance, Pleural Fluid CLEAR (CLEAR); Color, Pleural Fluid Pale Yellow (Pale Yellow); PATH Referral YES; Right Pleural Fluid Right Lung
[2022-03-07 14:08] LABS: LDH Pleural Fluid 79 U/L; Pleural Fluid Albumin 2.2 g/dL; Total Protein Pleural Fluid 3.7 g/dL
--- NOTE | 2022-03-07 14:59 | PC.NURSE ---
Spoke with patient and family member regarding concerns about the patient's nausea level. The patient requested phenergan and I have sent a message via VOALTE to Dr. Rizzo regarding this request. The patient is also wanting to speak with the physician about their plan of care. Physician has been notified via VOALTE.
[2022-03-07 15:04] LABS: Glucose Point of Care 197 mg/dL (70-110)
[2022-03-07 17:02] LABS: Glucose Point of Care 217 mg/dL (70-110)
[2022-03-07] MEDS: promethazine 25 mg/mL SDV 1 mL IM (18:09)
[2022-03-07] MEDS: insulin lispro 100 unit/1 mL SUBCUT (18:09)
[2022-03-07] MEDS: amlodipine 10 mg Tablet PO (18:10)
[2022-03-07 21:54] LABS: Glucose Point of Care 149 mg/dL (70-110)
[2022-03-07] MEDS: insulin glargine 100 units/1 mL 20 UNIT SUBCUT (22:03)
[2022-03-08] VITALS (8 sets, daily range): BP systolic 121–169; BP diastolic 72–96; PULSE 78–101; RESP 13–16; TEMP 36.3–37.3; O2SAT 90–97
[2022-03-08 04:54] LABS: Basophils % 0.4 %; Eosinophils # 0.1 10^3/uL (0.0-0.8); Eosinophils % 0.7 %; Hematocrit 41.1 % (37.0-47.0); Hemoglobin 12.8 g/dL (11.5-15.3); Lymphocytes # 2.1 10^3/uL (0.8-4.8); Lymphocytes % 18.9 %; Mean Corpuscular HGB Conc 31.1 g/dL (30.0-36.0); Mean Corpuscular Hemoglobin 30.3 pg (28.0-34.0); Mean Corpuscular Volume 97.2 fl (81-99); Monocytes % 8.9 %; Neutrophils # 7.65 10^3/uL (1.8-7.7); Neutrophils % 70.7 %; Nucleated Red Blood Cells % 0 %; Platelet Count 364 10^3/cmm (130-400); Red Blood Count 4.23 10^6/uL (4.1-5.3); Red Cell Distribution Width 15.2 % (12.1-15.1); White Blood Count 10.8 10^3/uL (4.0-10.0)
[2022-03-08 05:18] LABS: Glucose Point of Care 108 mg/dL (70-110)
[2022-03-08 05:25] LABS: Alanine Aminotransferase 14 U/L (0-33); Albumin Level 3.1 g/dL (3.5-5.2); Alkaline Phosphatase 202 IU/L (35-105); Anion Gap 13.1 (5-19); Aspartate Amino Transferase 13 U/L (0-32); Blood Urea Nitrogen 29 mg/dL (8-23); Calcium 9.3 mg/dL (8.5-10.5); Carbon Dioxide 28 mmol/L (22-29); Chloride 99 mmol/L (98-107); Globulin 3.4 g/dL (1.3-4.6); Glomerular Filtration Rate 13.4 mL/min (90-130); Glucose 130 mg/dL (65-115); Osmolality Calculated 290 mOsm/kg (285-295); Potassium 4.1 mmol/L (3.5-5.1); Sodium 136 mmol/L (136-145); Total Bilirubin 0.3 mg/dL (0.15-1.2); Total Protein 6.5 g/dL (6.6-8.7)
[2022-03-08 06:55] LABS: Glucose Point of Care 87 mg/dL (70-110)
[2022-03-08] MEDS: TORSEmide 20 mg Tablet 40 MG PO (09:05)
[2022-03-08] MEDS: levothyroxine 75 mcg Tablet 37.5 MCG PO (09:06)
[2022-03-08] MEDS: carvedilol 12.5 mg Tablet PO (09:06)
[2022-03-08 10:29] LABS: Ketone (Acetest) Serum Negative (Negative)
[2022-03-08 10:42] LABS: Glucose Point of Care 118 mg/dL (70-110)
--- NOTE | 2022-03-08 11:01 | P.DS_ITS ---
Discharge Providers Date of Admission: 03/06/22 02:53 Date of Discharge: March 08, 2022 Attending Provider at Admission: Emma Rosenberg DO Attending Provider at Discharge: Chris Rizzo MD Diagnoses at Discharge Discharge Diagnosis (1) ESRD on dialysis: Status: Acute Reason for Visit Reason for Visit: DEHYDRATION Hospital Course Hospital Course 66-year-old female who has multiple comorbid conditions, history of coronary artery disease, low EF, gallstones, presented to the hospital with active retching. She did not experience any recurrent episodes during hospitalization. Her symptoms improved. Patient is going to see Dr. Schmidt strapper and buffer at [facility] on 16 March as preoperative cardiology clearance for her gallbladder surgery, her surgeon is Dr. Pichardo. During this hospitalization her HIDA scan did show gallstones with positive filling defect, however her abdomen was nontender, Nichole sign negative, she remained hemodynamically stable, her blood sugar was difficult to control, I had to give her 25 units of short acting insulin, her hemoglobin A1c is 10.2, for her acute hypoxia chest x-ray showed pleural effusion, status post right thoracentesis 03/07 which showed transudative fluid related to her low EF congestive heart failure. She qualified for 4 L of oxygen at the time of discharge. She will be discharged home with instructions for stronger control of blood sugar and blood pressure. Daughter updated on daily basis On 03/08 she will be discharged after dialysis. Patient is endorsing feeling much better after thoracentesis. Physical Exam Narrative: Patient is feeling better today On 4 L nasal cannula on exertion and 3 L at rest Soft abdomen Nichole sign negative No active sign of congestive heart failure or fluid overload Patient is awake and alert Nonfocal neuro exam No active distress Discharge Data Studies Completed and Pending Completed Studies During Hospitalization Category Date Time Status CT abdomen pelvis wo con [id number] Urgent Cat Scan 03/05/22 23:03 Completed XR chest 1V portable [id number] Stat Exams 03/06/22 02:23 Completed XR chest 1V portable [id number] Stat Exams 03/07/22 12:15 Completed NM hepatobiliary w phar* [id number] Routine Nuc Med 03/07/22 03:50 Completed US gall bladder [id number] Urgent Ultrasound 03/06/22 00:13 Completed US renal BI* [id number] Urgent Ultrasound 03/06/22 03:50 Completed US thoracentesis [id number] Routine Ultrasound 03/07/22 08:00 Completed Pending at discharge Category Date Time Status Fecal Occult Blood [Immunochemical Fecal OCB] Routine Lab 03/06/22 03:50 Uncollected Urinalysis Stat Lab 03/05/22 22:11 Uncollected Radiology Impressions Abdomen/Pelvis CT 03/05/22 23:03 IMPRESSION: 1. Gallbladder dilatation with multiple tiny gallstones. There is no pericholecystic fluid. The gallbladder appears more dilated than on the comparison study. In the presence of right upper quadrant pain, consider correlation with right upper quadrant ultrasound to evaluate for possible Nichole's sign if clinically indicated. 2. Bilateral pleural effusions, worse on the right with right lower lobe collapse/atelectasis. 3. Status post median sternotomy. 4. An indeterminate 1.3 cm lesion in the right kidney. Consider correlation with abdominal sonography, renal mass protocol without and with contrast for further characterization, if clinically indicated. 5. A cystic lesion of the right ovary that has increased in size from the comparison study. Consider non emergent gynecology evaluation. There is an enlarged uterus with multiple fibroids. 6. Additional non emergent findings as described above. THIS REPORT CONTAINS FINDINGS THAT MAY BE CRITICAL TO PATIENT CARE. The findings were verbally communicated via telephone conference with JOSE PACK at 12:15 AM CDT on 03/06/2022. The findings were acknowledged and understood. ADDENDUM: 03/06/22 0529 The correct statement is as follows: 4. An indeterminate 1.3 cm lesion in the right kidney. Consider correlation with abdominal MRI without and with contrast, renal mass protocol for further characterization, if clinically indicated. Gallbladder Ultrasound 03/06/22 00:13 IMPRESSION: 1. Sludge and tiny gallstones in the gallbladder lumen. The stones are best seen in the concurrent CT scan and are likely too small to shadow, thus not well visualized by ultrasound. 2. The patient does not meet criteria for acute cholecystitis given a negative Nichole's sign and no thickening of the gallbladder wall. However, as there is persistent gallbladder distention, non emergent biliary scintigraphy (HIDA scan) may be helpful in evaluation for possible chronic cholecystitis, if clinically indicated. ADDENDUM: 03/06/22 0208 Findings were discussed with JOSE PACK at 03/06/2022 1:53 AM CDT. Renal Ultrasound 03/06/22 03:50 IMPRESSION: 1. Ultrasound findings are consistent with renal cysts in the upper pole of the right kidney and in the lower pole of the left kidney. 2. However, the 1 cm lesion in the upper pole of the right kidney is quite small for ultrasound characterization. Consider the an interval follow-up MRI without and with contrast. 3. A small, punctate nonobstructive calculus in the lower pole of the left kidney. 4. Mild thickening of the bladder wall that may be secondary to infection/cystitis or underdistension. ADDENDUM: 03/06/22621 Findings were discussed with Emma Rosenberg at 03/06/2022 6:20 AM CDT. Hepatobiliary Scan Nuclear Medicine 03/07/22 03:50 IMPRESSION: Findings are similar in appearance to August 23, 2021 1. No significant gallbladder emptying at 69 minutes compatible with gallbladder dysfunction and suspicious for chronic cholecystitis. 2. No evidence of acute cholecystitis. 3. Hepatomegaly with enlargement RIGHT hepatic lobe. 4. Normal small bowel activity. Thoracentesis Ultrasound 03/07/22 08:00 IMPRESSION: Uncomplicated ultrasound-guided RIGHT thoracentesis. Chest X-Ray 03/07/22 12:15 IMPRESSION: 1. Improved RIGHT pleural effusion post thoracentesis. 2. Moderate residual bilateral pleural effusions with compressive atelectasis in the lung bases. 3. No pneumothorax. Laboratory Results WBC 10.8 10^3/uL (4.0-10.0) H 03/08/22 04:33 RBC 4.23 10^6/uL (4.1-5.3) 03/08/22 04:33 Hgb 12.8 g/dL (11.5-15.3) 03/08/22 04:33 Hct 41.1 % (37.0-47.0) 03/08/22 04:33 MCV 97.2 fl (81-99) 03/08/22 04:33 MCH 30.3 pg (28.0-34.0) 03/08/22 04:33 MCHC 31.1 g/dL (30.0-36.0) 03/08/22 04:33 RDW 15.2 % (12.1-15.1) H 03/08/22 04:33 Plt Count 364 10^3/cmm (130-400) 03/08/22 04:33 MPV 10.0 fL (7.4-10.4) 03/08/22 04:33 Neut % (Auto) 70.7 % 03/08/22 04:33 Lymph % (Auto) 18.9 % 03/08/22 04:33 [place] % (Auto) 8.9 % 03/08/22 04:33 Eos % (Auto) 0.7 % 03/08/22 04:33 Baso % (Auto) 0.4 % 03/08/22 04:33 Neut # (Auto) 7.65 10^3/uL (1.8-7.7) 03/08/22 04:33 Lymph # (Auto) 2.1 10^3/uL (0.8-4.8) 03/08/22 04:33 [place] # (Auto) 1.0 10^3/uL (0.2-0.9) H 03/08/22 04:33 Eos # (Auto) 0.1 10^3/uL (0.0-0.8) 03/08/22 04:33 Baso # (Auto) 0.0 10^3/uL (0.0-0.1) 03/08/22 04:33 Nucleated RBC % (auto) 0 % 03/08/22 04:33 Nucleated RBCs # 0.0 /100WBC 03/08/22 04:33 PT 12.00 SECONDS (12.1-14.9) L 03/07/22 01:32 INR 0.86 (0.8-1.2) 03/07/22 01:32 Sodium 136 mmol/L (136-145) 03/08/22 04:33 Potassium 4.1 mmol/L (3.5-5.1) 03/08/22 04:33 Chloride 99 mmol/L (98-107) 03/08/22 04:33 Carbon Dioxide 28 mmol/L (22-29) 03/08/22 04:33 Anion Gap 13.1 (5-19) 03/08/22 04:33 BUN 29 mg/dL (8-23) H 03/08/22 04:33 Creatinine 3.4 mg/dL (0.5-0.9) H 03/08/22 04:33 GFR Calculation 13.4 mL/min (90-130) L 03/08/22 04:33 Glucose 130 mg/dL (65-115) H 03/08/22 04:33 POC Glucose 118 mg/dL (70-110) H 03/08/22 10:29 Estimat Average Glucose 214 03/05/22 22:05 Hemoglobin A1c 9.1 % (4.0-6.0) H 03/05/22 22:05 Calculated Osmolality 290 mOsm/kg (285-295) 03/08/22 04:33 Calcium 9.3 mg/dL (8.5-10.5) 03/08/22 04:33 Phosphorus 2.5 mg/dL (2.5-4.5) 03/05/22 22:05 Magnesium 2.1 mg/dL (1.7-2.3) 03/05/22 22:05 Iron 40 ug/dL (37-145) 03/05/22 22:05 TIBC 199 mcg/dl 03/05/22 22:05 % Saturation 20.1 % (20-50) 03/05/22 22:05 Unsat Iron Binding 159 ug/dL (112-347) 03/05/22 22:05 Ferritin 870 ng/mL (15-150) H 03/05/22 22:05 Total Bilirubin 0.3 mg/dL (0.15-1.2) 03/08/22 04:33 AST 13 U/L (0-32) 03/08/22 04:33 ALT 14 U/L (0-33) 03/08/22 04:33 Alkaline Phosphatase 202 IU/L (35-105) H 03/08/22 04:33 Lactate Dehydrogenase 203 U/L (135-214) 03/06/22 05:40 C-Reactive Protein 9.8 mg/L (0.0-4.9) H 03/05/22 22:05 Total Protein 6.5 g/dL (6.6-8.7) L 03/08/22 04:33 Albumin 3.1 g/dL (3.5-5.2) L 03/08/22 04:33 Globulin 3.4 g/dL (1.3-4.6) 03/08/22 04:33 Lipase 11 U/L (13-60) L 03/05/22 22:05 PTH Intact 69.6 pg/mL (15-65) H 03/06/22 05:40 Calcium (PTH Intact) 9.0 mg/dL (8.5-10.5) 03/06/22 05:40 Pleural Color Pale yellow (Pale Yellow) 03/06/22 12:14 Pleural Appearance Clear (CLEAR) 03/06/22 12:14 Pleural pH 8.00 (6.5-7.5) H 03/06/22 12:14 Pleural WBC 28.000 /uL (0-1000) 03/06/22 12:14 Pleural RBC 0.000 10^3/uL 03/06/22 12:14 Pleural Mononuc # Auto 0.025 10^3/uL 03/06/22 12:14 Pleural Polynuclear % 11 % 03/06/22 12:14 Pleural Polynuclear # 0.003 10^3/uL 03/06/22 12:14 Pleural Mononuclear % 89 % 03/06/22 12:14 Pleural Other Cells Rt Right lung 03/06/22 12:14 Pleural Total Protein 3.7 g/dL 03/06/22 12:14 Pleural Albumin 2.2 g/dL 03/06/22 12:14 Pleural LDH 79 U/L 03/06/22 12:14 Pleural Glucose 426.0 mg/dL 03/06/22 12:14 Serum Ketones Negative (Negative) 03/08/22 08:56 Pathology Message Yes 03/06/22 12:14 Vitals Last Vital Signs Temp 98.5 F 03/08/22 07:27 Pulse 101 H 03/08/22 10:31 Resp 13 03/08/22 10:31 BP 169/72 03/08/22 10:31 Pulse Ox 95 03/08/22 10:31 Discharge Plan Discharge Patient Disposition: Home Condition: Stable Prescriptions: No Action lorazepam 0.5 mg Tablet 0.5 mg PO TID PRN (Reason: Anxiety) 0RF pantoprazole 40 mg Tablet,Delayed Release (Dr/Ec) 40 mg PO DAILY 0RF insulin aspart U-100 [Novolog Flexpen U-100 Insulin] 100 unit/mL (3 mL) Insulin Pen See Rx Instructions .ROUTE .COMPLEX 0RF Rx Instructions: PER SLIDING SCALE up to 22 units per day venlafaxine 75 mg capsule,extended release 24hr 75 mg PO DAILY 0RF Lantus Solostar U-100 Insulin 100 unit/mL (3 mL) insulin pen 10 unit SUBCUT Q12H 0RF furosemide 40 mg Tablet See Rx Instructions .ROUTE .COMPLEX 0RF Rx Instructions: 40 mg orally on MON,WED,FRI AND TAKE 80MG , , SUN AND SUN. atorvastatin 40 mg Tablet 40 mg PO QPM 0RF carvedilol 12.5 mg Tablet 12.5 mg PO BID 0RF Rx Instructions: must administer with a meal/food clopidogrel 75 mg Tablet 75 mg PO DAILY 0RF Aspir-Low 81 mg Tablet,Delayed Release (Dr/Ec) 81 mg PO DAILY 0RF levothyroxine 75 mcg Tablet 37.5 mcg PO DAILY 0RF amlodipine 10 mg Tablet 10 mg PO QPM 0RF RenaPlex-D 800 mcg-12.5 mg -2,000 unit Tablet 1 tab PO DAILY 0RF Discharge Orders: Discharge Order (Routine); Ordered 03/08/22 Ordered By: Chris Rizzo Other Ambulatory Orders: DME: Oxygen (Order) Location: None Selected Ordered By: Chris Rizzo Referrals: [facility] [Outside] Discharge Diet: Diabetic Discharge Activity: Increase activity as tolerated Patient Instructions: Opioid Safety Discharge Attestations Time Spent in Discharge Care*: less than 30 min Quality Metrics Clinical Quality Measures [ No reported AMI, CVA or VTE this stay] Coding Level of Care Code Acute Chg FW DC note Diagnoses ESRD on dialysis N18.6; Z99.2
--- NOTE | 2022-03-08 11:05 | P.PN_ITS ---
Subjective Subjective: Discharge was delayed yesterday as she was hypoglycemic, there was some bloody oozing from whether thoracentesis was performed. Today she feels good, glucose levels are now controlled. There is no acute issues. She is pending dialysis and then discharge today. Vitals/I&O/Wt Last Vital Signs Temp 98.5 F 03/08/22 07:27 Pulse 101 H 03/08/22 10:31 Resp 13 03/08/22 10:31 BP 169/72 03/08/22 10:31 Pulse Ox 95 03/08/22 10:31 Weight last 48 hrs Weight 67.585 kg Weight 0 g Physical Exam Narrative: Constitutional: Awake, comfortable HEENT: Wet mucosa, no jvp, non icteric Lungs: Bilaterally clear without discernible wheeze, rales in all lung zones CVS: S1 S2, no murmurs Abdo: Soft, BS ok Ext 4: Minimal edema, peripheral perfusion with no cyanosis Neurological: Grossly non-focal Data : 03/08/22 04:33 03/08/22 04:33 A&P Assessment and plan (1) ESRD on dialysis: Status: Acute Plan 1. End-stage renal disease HD pending for today 3K, UF 3L 2. Dyspnea Likely to be hypervolemic from skipping dialysis and questionable compliance with medication. Thoracentesis has helped 3. Hemodynamics Remained stable, close monitoring with ultrafiltration and diuretics. 4. Chronic ESRD issues These are not pressing, can be handled as an outpatient as part of standard monthly management. DC after HD Ian Garay MD Nephrology [phone] Patient seen and examined via telemedicine, with the assistance of the bedside RN > 25 min spent in evaluation and mgmt of patient Attestations Medical Necessity Statement*: ESRD mgmt Coding Level of Care Code Acute Milk Pickup Driver for Chg Fwd Diagnoses ESRD on dialysis N18.6; Z99.2
[2022-03-08] MEDS: heparin, porcine 1,000 unit/mL INJ 10 mL 10000 UNIT CRRT (16:10)
--- NOTE | 2022-03-09 11:49 | PC.HD ---
On initiation of treatment, clot aspirated from venous port. Port then isaac easily with no additional clots removed. During treatment, pt had recurrent hypotension with SBP 70, mildly symptomatic. With 1st episode, pt responded well to UF of and 50 ml NS bolus and UF was resumed. With 2nd episode, UF remained of for rest of treatment and Dr Garay notified. Fluid removal goal not met as a result. Pt otherwise tolerated treatment well.
== END 2022-03-08 16:45 | disposition home or self-care (01) | DRG 444 ==
LOC: ER 03-06 02:29 → MEDSURG 03-06 03:07
PROVIDERS: Admitting Provider Internal Medicine; Emergency Provider Emergency Medicine; Visit Provider Internal Medicine
DX: K80.20 Calculus of gallbladder without cholecystitis without obstruction (principal); N18.6 End stage renal disease; I13.2 Hypertensive heart and chronic kidney disease with heart failure and with stage 5 chronic kidney disease, or end stage renal disease; I50.20 Unspecified systolic (congestive) heart failure; E87.1 Hypo-osmolality and hyponatremia; J90 Pleural effusion, not elsewhere classified; Z91.15 Patient's noncompliance with renal dialysis; E11.22 Type 2 diabetes mellitus with diabetic chronic kidney disease; Z99.2 Dependence on renal dialysis; E11.43 Type 2 diabetes mellitus with diabetic autonomic (poly)neuropathy; K31.84 Gastroparesis; F32.A Depression, unspecified; F41.9 Anxiety disorder, unspecified; D63.1 Anemia in chronic kidney disease; I25.10 Atherosclerotic heart disease of native coronary artery without angina pectoris; Z95.1 Presence of aortocoronary bypass graft; I25.2 Old myocardial infarction; K21.9 Gastro-esophageal reflux disease without esophagitis; Z79.82 Long term (current) use of aspirin; Z79.02 Long term (current) use of antithrombotics/antiplatelets; Z79.4 Long term (current) use of insulin; E78.5 Hyperlipidemia, unspecified
CPT/HCPCS: 32555; 36415; 36416; 71045; 74176; 76705; 76770; 76857; 78227; 80053; 80503; 82009; 82042; 82310; 82728; 82945; 82947; 82962; 83036; 83540; 83550; 83615; 83690; 83735; 83970; 83986; 84100; 84157; 85025; 85610; 86140; 89050; 96372; 99285; A9537; J1630; J1644; J1815 ×2; J2060; J2405; J2550; J7040; Q3014

== ENCOUNTER 2022-10-14 11:11 | Emergency (ER) | payer MEDICARE, SELFPAY ==
--- NOTE | 2022-10-14 11:17 | XRR_ITS ---
PROCEDURE INFORMATION: Exam: XR Chest Exam date and time: 10/14/2022 11:42 AM Age: 66 years old Clinical indication: Injury or trauma; Fall; Blunt trauma (contusions or hematomas) TECHNIQUE: Imaging protocol: Radiologic exam of the chest. Views: 1 view. COMPARISON: CR XR chest 1V portable [id number] 03/07/2022 12:41 PM FINDINGS: Lungs: Right lower lobe interstitial congestion. No consolidation. Pleural spaces: Unremarkable. Bilateral pleural effusion. No pneumothorax. Heart/Mediastinum: Unremarkable. No cardiomegaly. Bones/joints: Metallic sternotomy wires are present. Chronic fracture deformity proximal left humerus stable since prior Right central line extends into the right atrium. XR/XR chest 1V portable [id number] IMPRESSION: 1. Bilateral lower lobe pleural effusion. 2. Interstitial congestion right lower lobe. 3. Large bore right central line extends to the right atrium. 4. Metallic sternotomy wires are present. 5. Chronic fracture deformity proximal left humerus
--- NOTE | 2022-10-14 11:17 | XRR_ITS ---
PROCEDURE INFORMATION: Exam: XR Left Hip Exam date and time: 10/14/2022 11:35 AM Age: 66 years old Clinical indication: Injury or trauma; Fall; Blunt trauma (contusions or hematomas); Left; Hip TECHNIQUE: Imaging protocol: Radiologic exam of the Left hip. Views: 2 or 3 views hip with pelvis when performed. COMPARISON: CT abdomen pelvis wo con [id number] 03/05/2022 11:18 PM FINDINGS: Bones/joints: Unremarkable. No acute fracture. Soft tissues: Vascular calcifications left groin XR/XR hip LT 2-3V wo/w pel* [id number] IMPRESSION: 1. No acute findings. 2. Vascular calcifications left groin
[2022-10-14 11:18] VITALS: BP 146/71; PULSE 78; RESP 18; TEMP 36.8; O2SAT 95; BMI 18.3
--- NOTE | 2022-10-14 11:20 | XRR_ITS ---
PROCEDURE INFORMATION: Exam: XR Left Femur Exam date and time: 10/14/2022 11:37 AM Age: 66 years old Clinical indication: Injury or trauma; Fall; Blunt trauma; Hip; Left TECHNIQUE: Imaging protocol: Radiologic exam of the Left femur. Views: 2 views. COMPARISON: CR (PELVIS, ) 10/14/2022 11:35 AM FINDINGS: Bones/joints: Unremarkable. No acute fracture. Soft tissues: Vascular calcifications are seen in the left leg XR/XR femur LT min 2V* [id number] IMPRESSION: 1. No acute bone abnormality. 2. Vascular calcifications left leg
--- NOTE | 2022-10-14 11:21 | ED_ITS ---
HPI - Fall General: Chief Complaint: Fall Stated Complaint: LEFT HIP PAIN S/P FALL Time Seen by Provider: 10/14/22 11:16 Source: patient and EMS Mode of arrival: EMS Limitations: no limitations History of Present Illness: 66-year-old female who states that she fell 2 days ago. States she landed on her left leg she has pain in her left femur from the fall. She has been able ambulate but states painful to walk. She denies any other injuries denies hitting her head denies any neck pain. No deformities noted. Associated symptoms-after fall: Denies abdominal pain, chest pain or headache(s) Review of Systems Const: Denies: fever(s), chills, body aches or change in appetite Eyes: Denies: blurry vision or eye discomfort ENMT: Denies: throat pain or dental pain Card: Denies: chest pain Resp: Denies: dyspnea GI: Denies: abdominal pain, nausea, vomiting or diarrhea : Denies: dysuria Musc: Reports: extremity pain Skin/Breast: Denies: rash Neuro: Denies: headache(s) Psych: Denies: depression [place]/Lymph: Denies: easy bruising All/Imm: Denies: urticaria PFSH ED PFSH: Medical History ESRD on dialysis Gastroparesis Hypertension Uncontrolled diabetes mellitus Social History Smoking and tobacco status: never smoked Physical Exam Const: COMMON NORMALS: no acute distress, patient oriented x3 and healthy appearing HENMT: COMMON NORMALS: normocephalic and atraumatic HEAD & SCALP: normocephalic and atraumatic Eye: COMMON NORMALS: Equal, round and reactive pupils present and EOMs intact bilaterally PUPIL: Yes Equal, round and reactive pupils present Neck/C-Spine: COMMON NORMALS: full ROM and supple Chest: COMMONS NORMALS: normal inspection of the chest and normal palpation of entire chest wall Resp: COMMON NORMALS: normal respiratory effort, No retractions, No use of accessory muscles and clear to auscultation bilaterally AUSCULTATION: clear to auscultation bilaterally Cardio: COMMON NORMALS: regular rate, regular rhythm and No murmurs present (Cardio) RATE: regular rate RHYTHM: regular rhythm GI: COMMON NORMALS: Normal to inspection, nondistended, normoactive bowel sounds present, Soft to palpation, non-tender and no masses PALPATION: Yes Soft to palpation Extremity: COMMON NORMALS: full ROM NARRATIVE EXTREMITY EXAM: Distal left femur no obvious deformity full range of motion no pelvis tenderness or abdominal tenderness Neuro: COMMON NORMALS: patient oriented x3, moves all extremities and no focal motor deficits Psych: COMMON NORMALS: mental status grossly normal, Normal thought process present and cooperative THOUGHT PROCESS: Normal thought process present Skin: COMMON NORMALS: no rashes or lesions noted and no wounds GENERAL SKIN EXAM: no rashes or lesions noted Course Vital Signs: Vital signs: Vital Signs Temperature 98.2 F 10/14/22 11:18 Pulse Rate 78 10/14/22 11:18 Respiratory Rate 18 10/14/22 11:18 Blood Pressure 146/71 10/14/22 11:18 Pulse Oximetry 95 10/14/22 11:18 Oxygen Delivery Me thod 10/14/22 11:18 MDM - Fall Medical Decision Making Patient presents here with hip contusion from a fall her x-rays here are normal she is able to stand and ambulate she is stable for discharge with her daughter return if worsening. Lab Data Radiology Impressions Chest X-Ray 10/14/22 11:17 IMPRESSION: 1. Bilateral lower lobe pleural effusion. 2. Interstitial congestion right lower lobe. 3. Large bore right central line extends to the right atrium. 4. Metallic sternotomy wires are present. 5. Chronic fracture deformity proximal left humerus Hip/Pelvis X-Ray 10/14/22 11:17 IMPRESSION: 1. No acute findings. 2. Vascular calcifications left groin Femur X-Ray 10/14/22 11:20 IMPRESSION: 1. No acute bone abnormality. 2. Vascular calcifications left leg Discharge Plan Discharge Patient Disposition: Home Clinical Impression: Fall, Contusion Condition: Stable Prescriptions: New hydrocodone-acetaminophen 5-325 mg tablet 1 tab PO Q6H PRN (Reason: pain) Qty: 14 0RF No Action lorazepam 0.5 mg Tablet 0.5 mg PO TID PRN (Reason: Anxiety) pantoprazole 40 mg Tablet,Delayed Release (Dr/Ec) 40 mg PO DAILY insulin aspart U-100 [Novolog Flexpen U-100 Insulin] 100 unit/mL (3 mL) Insulin Pen See Rx Instructions .ROUTE .COMPLEX Rx Instructions: PER SLIDING SCALE up to 22 units per day venlafaxine 75 mg capsule,extended release 24hr 75 mg PO DAILY Lantus Solostar U-100 Insulin 100 unit/mL (3 mL) insulin pen 10 unit SUBCUT Q12H furosemide 40 mg Tablet See Rx Instructions .ROUTE .COMPLEX Rx Instructions: 40 mg orally on MON,WED,FRI AND TAKE 80MG , , SUN AND SUN. atorvastatin 40 mg Tablet 40 mg PO QPM carvedilol 12.5 mg Tablet 12.5 mg PO BID Rx Instructions: must administer with a meal/food clopidogrel 75 mg Tablet 75 mg PO DAILY aspirin 81 mg Tablet,Delayed Release (Dr/Ec) 81 mg PO DAILY levothyroxine 75 mcg Tablet 37.5 mcg PO DAILY amlodipine 10 mg Tablet 10 mg PO QPM RenaPlex-D 800 mcg-12.5 mg -2,000 unit Tablet 1 tab PO DAILY Discharge Orders: Discharge ED (Routine); Ordered 10/14/22 Ordered By: Candace Ybarra Discharge Diet: Advance as tolerated Discharge Activity: Resume usual activity Patient Instructions: Contusion in Adults (ED), Opioid Safety Coding Level of Care Code ED Cut Pressman for Vikas Fwd Exam Comprehensive
[2022-10-14] MEDS: HYDROcodone-acetaminophen 5-325 mg Tablet 1 TAB PO (11:58)
--- NOTE | 2022-10-14 12:36 | PC.NURSE ---
I walked the pt, she was able to bear weight, was unsteady and said it hurt to walk
[2022-10-14 12:44] VITALS: BP 111/71; PULSE 84
== END 2022-10-14 12:45 | disposition home or self-care (01) ==
PROVIDERS: Emergency Provider Emergency Medicine
DX: S70.02XA Contusion of left hip, initial encounter (principal); Z79.4 Long term (current) use of insulin; Z79.82 Long term (current) use of aspirin; Z79.02 Long term (current) use of antithrombotics/antiplatelets; I12.0 Hypertensive chronic kidney disease with stage 5 chronic kidney disease or end stage renal disease; E11.22 Type 2 diabetes mellitus with diabetic chronic kidney disease; N18.6 End stage renal disease; Z99.2 Dependence on renal dialysis; W19.XXXA Unspecified fall, initial encounter
CPT/HCPCS: 71045; 73502; 73552; 99284

== ENCOUNTER 2022-10-17 06:35 | Inpatient (IN) | payer MEDICARE, SELFPAY ==
[2022-10-17] VITALS (45 sets, daily range): BP systolic 108–144; BP diastolic 61–76; PULSE 68–84; RESP 0–25; TEMP 36.3–36.9; O2SAT 92–99; BMI 18.3
[2022-10-17 06:44] LABS: Glucose Point of Care 424 mg/dL (70-110)
--- NOTE | 2022-10-17 06:49 | PC.NURSE ---
pt placed on 2L NC upon arrival due to O2 saturation at 90 on room air
--- NOTE | 2022-10-17 06:53 | XRR_ITS ---
PROCEDURE INFORMATION: Exam: XR Chest Exam date and time: 10/17/2022 7:10 AM Age: 66 years old Clinical indication: Cough and dyspnea; Patient HX: Cough, elevated blood sugar, AMS; Additional info: Dyspnea/cough TECHNIQUE: Imaging protocol: Radiologic exam of the chest. Views: 1 view. COMPARISON: CR (CHEST, ) 10/14/2022 11:42 AM FINDINGS: Tubes, catheters and devices: A right internal jugular central venous catheter terminates in the right atrium. Lungs: Atelectasis and consolidation is present in the bilateral lower lobes, more pronounced on the left. Pleural spaces: Bilateral pleural effusions are present, much larger on the left. Heart/Mediastinum: The cardiac silhouette is mildly enlarged, likely due to underlying cardiomegaly. The patient is status-post coronary artery bypass grafting. Bones/joints: The patient is status post sternotomy. An age-indeterminate left humeral neck fracture is noted. Fracture was present on humeral radiographs from 09/21/2021. XR/XR chest 1V portable [id number] IMPRESSION: 1. Bilateral pleural effusions, larger on the left 2. Bilateral lower lobe atelectasis and consolidation, more pronounced on the left. Infection or edema is possible. This appears similar to the recent exam.
--- NOTE | 2022-10-17 06:53 | CTR_ITS ---
PROCEDURE INFORMATION: Exam: CT Head Without Contrast Exam date and time: 10/17/2022 7:06 AM Age: 66 years old Clinical indication: Altered mental status/memory loss; Additional info: AMS TECHNIQUE: Imaging protocol: Computed tomography of the head without contrast. Radiation optimization: All CT scans at this facility use at least one of these dose optimization techniques: automated exposure control; mA and/or kV adjustment per patient size (includes targeted exams where dose is matched to clinical indication); or iterative reconstruction. COMPARISON: CT head wo con* [id number] 08/30/2021 5:19 PM RADIATION DOSE METRICS: Total DLP (mGy-cm): 962.68 FINDINGS: Brain: There is no acute intracranial hemorrhage, cerebral edema, or midline shift. Chronic encephalomalacia and gliosis is present in the right parietal convexity. Chronic microvascular ischemic changes are seen in the periventricular white matter. A chronic lacunar infarct is noted within the right basal ganglia. Age-related cerebral and cerebellar volume loss is present. Cerebral ventricles: No hydrocephalus. Paranasal sinuses: There is no acute sinusitis. Mastoid air cells: The mastoid air cells are clear. Orbital cavities: The included orbital structures are unremarkable. Bones/joints: No acute fracture. Soft tissues: Unremarkable. Vasculature: Atherosclerotic calcifications are seen involving the cavernous carotid arteries. CT/CT head wo con* [id number] IMPRESSION: 1. No acute intracranial abnormality. 2. Chronic findings as discussed above.
--- NOTE | 2022-10-17 06:54 | ECG_ITS ---
[facility] [place] Test Date: 2022-10-17 Pat Name: Cony Temple Department: Room: Gender: Female Tare Weigher: : 1955 Requested By: José Miguel Cha Order Number: [id number] Doug MD: Dean Gilmore M.D. Measurements Intervals [place] Rate: 75 P: 53 HI: 196 QRS: 33 QRSD: 98 T: 192 QT: 425 QTc: 476 Interpretive Statements SINUS RHYTHM POSSIBLE LEFT ATRIAL ENLARGEMENT [-0.1mV P-WAVE IN V1/V2] ST DEVIATION AND MODERATE T-WAVE ABNORMALITY, CONSIDER LATERAL ISCHEMIA [-0.1+ mV T-WAVE IN I/aVL/V5/V6] ST DEVIATION AND MODERATE T-WAVE ABNORMALITY, CONSIDER INFERIOR ISCHEMIA [-0.1+ mV T-WAVE IN II/aVF] Compared to ECG 08/30/2021 07:41:37 Sinus tachycardia no longer present First degree AV block no longer present Myocardial infarct finding no longer present T-wave abnormality still present Possible ischemia still present Electronically Signed On 10-17-2022 11:54:08 TIRE CORD WEAVER by Dean Gilmore M.D. [id number]
[2022-10-17 07:01] LABS: Basophils % 0.2 %; Eosinophils % 0.1 %; Hematocrit 29.3 % (37.0-47.0); Hemoglobin 9.2 g/dL (11.5-15.3); Lymphocytes % 11.8 %; Mean Corpuscular HGB Conc 31.4 g/dL (30.0-36.0); Mean Corpuscular Hemoglobin 30.1 pg (28.0-34.0); Mean Corpuscular Volume 95.8 fl (81-99); Mean Platelet Volume 11.1 fL (7.4-10.4); Monocytes # 0.9 10^3/uL (0.2-0.9); Monocytes % 10.1 %; Neutrophils % 77.3 %; Nucleated Red Blood Cells % 0 %; Platelet Count 302 10^3/cmm (130-400); Red Blood Count 3.06 10^6/uL (4.1-5.3); Red Cell Distribution Width 15.2 % (12.1-15.1); White Blood Count 8.4 10^3/uL (4.0-10.0)
[2022-10-17 07:07] LABS: Ketone (Acetest) Serum Negative (Negative)
[2022-10-17 07:14] LABS: Alanine Aminotransferase 25 U/L (0-33); Albumin Level 2.9 g/dL (3.5-5.2); Alkaline Phosphatase 310 U/L (35-105); Anion Gap 29.3 (5-19); Aspartate Amino Transferase 18 U/L (0-32); Blood Urea Nitrogen 67 mg/dL (8-23); Calcium 8.6 mg/dL (8.5-10.5); Carbon Dioxide 18 mmol/L (22-29); Chloride 89 mmol/L (98-107); Globulin 3.3 g/dL (1.3-4.6); Glomerular Filtration Rate 9.5 mL/min (90-130); Glucose 441 mg/dL (65-115); Lipase 79 U/L (13-60); Osmolality Calculated 310 mOsm/kg (285-295); Potassium 5.3 mmol/L (3.5-5.1); Sodium 131 mmol/L (136-145); Total Bilirubin 0.2 mg/dL (0.15-1.2); Total Protein 6.2 g/dL (6.6-8.7)
[2022-10-17 07:17] LABS: Lactic Sepsis W/Reflex 6.2 mmol/L (0.5-2.2); Troponin(5th) Baseline 121 ng/L (0-10)
[2022-10-17] MEDS: insulin regular-human 100 units/1 mL 15 UNIT IVP (07:20)
[2022-10-17 07:25] LABS: ABG PCO2 41.2 mmHg (35-45); ABG PH Result 7.38 (7.35-7.45); Arterial Blood Gas Hematocrit 28.9 % (37-47); Base Excess ABG -1.1 mmol/L (-2.0-2.0); Blood Gas Allen Test Pos; Blood Gas Operator Identificat glc; Blood Gas Sample Site Radial, right; Blood Gas Sample Type Arterial; Carboxyhemoglobin 1.3 %THgb (0.4-20.1); HCO3 ABG 24.1 mmol/L (22-26); HGB O2 Sat 97.1 % (95-100); Ionized Calcium Level - ABG 1.2 mmol/L (1.1-1.4); Methemoglobin 0.3 % (0.4-1.5); Oxygen Device NC; Oxygen Saturation ABG 98.7; Potassium Level - ABG 5.2 mmol/L (3.5-5.0); Total Hemoglobin 9.4 g/dL (12-16)
[2022-10-17 07:28] LABS: Alveolar-Arterial Oxygen Gradi 5.8 mmHg (5-10)
--- NOTE | 2022-10-17 07:29 | ED_ITS ---
HPI - General Adult General: Chief complaint: General Medical Stated complaint: elevated blood sugar Time Seen by Provider: 10/17/22 06:38 Source: patient Mode of arrival: ambulatory Limitations: no limitations History of Present Illness: 66-year-old female with a history of diabetes mellitus and end-stage renal disease secondary to poorly controlled diabetes and hypertension. Patient has a tunneled dialysis cath in the right subclavian. Last couple of days her blood sugars have simply been reading higher family has been giving her regular insulin and frequent doses to try to control it. Naif macias is altered mental status this morning is unable to give us any history she arrives by EMS from home we were able to contact the daughter but she says she has another commitment this morning will not be able to come to the hospital she does want her mother to be a full code. The patient is unable to give any history other than states she just does not feel well is not able to tell us any particulars as to why. Daughter states that they missed dialysis yesterday normally the patient gets dialysis on Sunday but missed yesterday did because the patient did not want to go to dialysis if the daughter could not accompany her. Onset (ago): day(s) Relieving factors: none Exacerbating factors: none Associated symptoms: Reports confusion, decreased appetite, malaise and weakness Treatments prior to arrival: other (Insulin) Review of Systems General: Reports: ROS unobtainable due to mental status Const: Reports: malaise Neuro: Reports: confusion PFS ED PFSH: Medical History (Updated 10/17/22 @ 15:02 by José Miguel Gonsalez DO) CAD in [place] artery Depression ESRD on dialysis Gastroparesis GERD (gastroesophageal reflux disease) Hyperlipidemia Hypertension Hypothyroidism Uncontrolled diabetes mellitus Social History (Updated 10/17/22 @ 13:09 by Cole Chavis MD) Smoking and tobacco status: never smoked Alcohol intake: never Substance/Drug Use: never Physical Exam HENMT: COMMON NORMALS: normocephalic, atraumatic and hearing grossly normal bilaterally HEAD & SCALP: normocephalic and atraumatic Resp: COMMON NORMALS: normal respiratory effort, No retractions, No use of accessory muscles and clear to auscultation bilaterally AUSCULTATION: clear to auscultation bilaterally Cardio: COMMON NORMALS: regular rate, regular rhythm and No murmurs present (Cardio) RATE: regular rate RHYTHM: regular rhythm GI: COMMON NORMALS: No hepatosplenomegaly present AUSCULTATION: Yes normoactive bowel sounds PALPATION: Yes Tenderness to palpation present (GI) (Diffuse), No Guarding due to palpation present (GI) and Yes No hepatosplenomegaly present Extremity: COMMON NORMALS: normal to inspection, capillary refill normal, no clubbing, cyanosis or edema, no calf tenderness and no pedal edema Skin: COMMON NORMALS: no rashes or lesions noted GENERAL SKIN EXAM: no rashes or lesions noted Course Vital Signs: Vital signs: Vital Signs Temperature 98.4 F 10/17/22 06:38 Pulse Rate 75 10/17/22 12:36 Respiratory Rate 14 10/17/22 12:36 Blood Pressure 114/69 10/17/22 12:36 Pulse Oximetry 92 10/17/22 12:36 Oxygen Delivery Me thod 10/17/22 12:36 Oxygen Flow Rate 2 10/17/22 12:36 MDM - General Adult Medical Decision Making Laboratory test show her chronic kidney failure as well as acute cystitis. She had elevated lactic acid which improved after fluid bolus. We are initially told that she had her hemodialysis on Sunday that she had missed yesterday however we later found that she gets dialysis Sunday. Additionally he was seen to have some abdominal discomfort CT was done and shows pelvic rami fracture from a recent fall she had been seen here evaluation of her hip was negative she has a very small acetabulum fracture dis cussed that with Dr. Vilchis he did not feel any surgical intervention was warranted. And felt that the patient from his perspective could be managed here discussed Dr. Choudhary from nephrology and Dr. Benito for the hospitalist service will admit the patient to the hospital here she has been started on Rocephin cultures have been done Dr. Choudhary is seen the patient and will arrange for dialysis. Patient will be admitted to the ICU where they can perform the hemodialysis. Medical Records I reviewed the patient's medical records. Lab Data I reviewed the patient's lab results. 10/17/22 06:43 10/17/22 06:43 Radiology Impressions Chest X-Ray 10/17/22 06:53 IMPRESSION: 1. Bilateral pleural effusions, larger on the left 2. Bilateral lower lobe atelectasis and consolidation, more pronounced on the left. Infection or edema is possible. This appears similar to the recent exam. Head CT 10/17/22 06:53 IMPRESSION: 1. No acute intracranial abnormality. 2. Chronic findings as discussed above. Abdomen/Pelvis CT 10/17/22 08:08 IMPRESSION: Images degraded by motion. 1. LEFT inferior pubic ramus and LEFT pubic symphysis fractures have an acute appearance with surrounding edema and a small amount of associated air. 2. Slightly comminuted anterior LEFT acetabular fracture. 3. No visualized LEFT femoral fractures. 4. No hydronephrosis in either kidney. 5. Loculated pleural fluid in the lung bases LEFT greater than RIGHT with compressive atelectasis. Interstitial edema in the lung bases. 6. Cardiomegaly. 7. Fluid distended gallbladder with cholelithiasis. 8. Diffuse bladder wall thickening. Recommend correlation for cystitis. 9. Bulky Fibroid uterus Notified José Miguel Gonsalez DO at 10/17/2022 9:[address] 10/17/22 09:03 IMPRESSION: 1. Cardiomegaly. 2. Bilateral loculated pleural effusions LEFT greater than RIGHT with compressive atelectasis. 3. Interstitial edema in the lung bases. Prior sternotomy with CABG. Laboratory Results WBC 8.4 10^3/uL (4.0-10.0) 10/17/22 06:43 RBC 3.06 10^6/uL (4.1-5.3) L 10/17/22 06:43 Hgb 9.2 g/dL (11.5-15.3) L 10/17/22 06:43 Hct 29.3 % (37.0-47.0) L 10/17/22 06:43 MCV 95.8 fl (81-99) 10/17/22 06:43 MCH 30.1 pg (28.0-34.0) 10/17/22 06:43 MCHC 31.4 g/dL (30.0-36.0) 10/17/22 06:43 RDW 15.2 % (12.1-15.1) H 10/17/22 06:43 Plt Count 302 10^3/cmm (130-400) 10/17/22 06:43 MPV 11.1 fL (7.4-10.4) H 10/17/22 06:43 Neut % (Auto) 77.3 % 10/17/22 06:43 Lymph % (Auto) 11.8 % 10/17/22 06:43 Grainger % (Auto) 10.1 % 10/17/22 06:43 Eos % (Auto) 0.1 % 10/17/22 06:43 Baso % (Auto) 0.2 % 10/17/22 06:43 Neut # (Auto) 6.50 10^3/uL (1.8-7.7) 10/17/22 06:43 Lymph # (Auto) 1.0 10^3/uL (0.8-4.8) 10/17/22 06:43 Grainger # (Auto) 0.9 10^3/uL (0.2-0.9) 10/17/22 06:43 Eos # (Auto) 0.0 10^3/uL (0.0-0.8) 10/17/22 06:43 Baso # (Auto) 0.0 10^3/uL (0.0-0.1) 10/17/22 06:43 Nucleated RBC % (auto) 0 % 10/17/22 06:43 Nucleated RBCs # 0.0 /100WBC 10/17/22 06:43 Specimen Type Arterial 10/17/22 07:13 Sample Site Radial, right 10/17/22 07:13 ABG pH 7.38 (7.35-7.45) 10/17/22 07:13 ABG pCO2 41.2 mmHg (35-45) 10/17/22 07:13 ABG pO2 103.0 mmHg (80.0-100.0) H 10/17/22 07:13 ABG HCO3 24.1 mmol/L (22-26) 10/17/22 07:13 ABG O2 Saturation 98.7 10/17/22 07:13 ABG Base Excess -1.1 mmol/L (-2.0-2.0) 10/17/22 07:13 Tj Test Pos 10/17/22 07:13 A-a O2 Gradient 5.8 mmHg (5-10) 10/17/22 07:13 Hematocrit 28.9 % (37-47) L 10/17/22 07:13 Hgb O2 Saturation 97.1 % (95-100) 10/17/22 07:13 Carboxyhemoglobin 1.3 %THgb (0.4-20.1) 10/17/22 07:13 Methemoglobin 0.3 % (0.4-1.5) L 10/17/22 07:13 Total Hemoglobin 9.4 g/dL (12-16) L 10/17/22 07:13 Sodium 132.0 mmol/L (131-143) 10/17/22 07:13 Potassium 5.2 mmol/L (3.5-5.0) H 10/17/22 07:13 Glucose 373.0 mg/dL (70-115) H 10/17/22 07:13 Ionized Calcium 1.2 mmol/L (1.1-1.4) 10/17/22 07:13 O2 Delivery Device Nc 10/17/22 07:13 O2 Liters/Min 2.0 % 10/17/22 07:13 FiO2 28.0 % 10/17/22 07:13 Firefighting Equipment Specialist ID glc 10/17/22 07:13 Sodium 131 mmol/L (136-145) L 10/17/22 06:43 Potassium 5.3 mmol/L (3.5-5.1) H 10/17/22 06:43 Chloride 89 mmol/L (98-107) L 10/17/22 06:43 Carbon Dioxide 18 mmol/L (22-29) L 10/17/22 06:43 Anion Gap 29.3 (5-19) H 10/17/22 06:43 BUN 67 mg/dL (8-23) H 10/17/22 06:43 Creatinine 4.6 mg/dL (0.5-0.9) H 10/17/22 06:43 GFR Calculation 9.5 mL/min (90-130) L 10/17/22 06:43 Glucose 441 mg/dL (65-115) H 10/17/22 06:43 POC Glucose 174 mg/dL (70-110) H 10/17/22 11:12 Calculated Osmolality 310 mOsm/kg (285-295) H 10/17/22 06:43 Lactic Acid 6.2 mmol/L (0.5-2.2) H* 10/17/22 06:43 Lactic Acid (Sepsis) 3.3 mmol/L (0.5-2.2) H 10/17/22 10:17 Uric Acid 5.4 mg/dL (2.4-5.7) 10/17/22 06:43 Calcium 8.6 mg/dL (8.5-10.5) 10/17/22 06:43 Total Bilirubin 0.2 mg/dL (0.15-1.2) 10/17/22 06:43 AST 18 U/L (0-32) 10/17/22 06:43 ALT 25 U/L (0-33) 10/17/22 06:43 Alkaline Phosphatase 310 U/L (35-105) H 10/17/22 06:43 Troponin T Baseline 121 ng/L (0-10) H* 10/17/22 06:43 Troponin T 120 Minute 120.3 ng/L (0-10) H 10/17/22 09:00 Delta Troponin T -0.7 ABS# (0-10) L 10/17/22 09:00 Troponin T Hi Sens 6Hr 106.8 ng/L (0-10) H 10/17/22 12:45 Troponin T Hi Sens 6Hr Delta -14.2 ng/L (0-12) L 10/17/22 12:45 Total Protein 6.2 g/dL (6.6-8.7) L 10/17/22 06:43 Albumin 2.9 g/dL (3.5-5.2) L 10/17/22 06:43 Globulin 3.3 g/dL (1.3-4.6) 10/17/22 06:43 Lipase 79 U/L (13-60) H 10/17/22 06:43 Urine Color Yellow (Yellow) 10/17/22 07:35 Urine Appearance Cloudy (CLEAR) A 10/17/22 07:35 Urine pH 8 (5-7) H 10/17/22 07:35 Ur Specific [place] 1.005 (1.005-1.030) 10/17/22 07:35 Urine Protein 2+ (Negative) H 10/17/22 07:35 Urine Glucose (UA) 4+ (Normal) H 10/17/22 07:35 Urine Ketones 1+ (Negative) H 10/17/22 07:35 Urine Blood Neg (Negative) 10/17/22 07:35 Urine Nitrate Negative (Negative) 10/17/22 07:35 Urine Bilirubin Neg (Negative) 10/17/22 07:35 Prot Sulfosalicylic Acd Positive (Negative) 10/17/22 07:35 Urine Urobilinogen Norm mg/dL (Negative) 10/17/22 07:35 Ur Leukocyte Esterase 2+ (Negative) H 10/17/22 07:35 Urine RBC 0-4 /hpf (0-2) H 10/17/22 07:35 Urine WBC Too numerous to cnt /hpf (0-5) H 10/17/22 07:35 Ur Squamous Epith Cells 5-10 /hpf (0-5) H 10/17/22 07:35 Ur Transition Epith Cell 0-4 /hpf 10/17/22 07:35 Amorphous Sediment Not Reportable 10/17/22 07:35 Urine Bacteria 2+ /hpf (NONE) H 10/17/22 07:35 Serum Ketones Negative (Negative) 10/17/22 06:43 Hep Bs Antigen Non-reactive (Nonreactive) 10/17/22 06:43 Hep Bs Antibody 39.6 (11.5-1000) 10/17/22 06:43 Hepatitis C Antibody Non-reactive (Nonreactive) 10/17/22 06:43 Discharge Plan Discharge Patient Disposition: Home Clinical Impression: Acute metabolic encephalopathy, Troponin level elevated, Fall, ESRD (end stage renal disease) on dialysis, Cystitis, Closed fracture of pubic ramus, Fracture acetabulum-closed Condition: Stable Coding Level of Care Code ED Piano Machine Operator for Marianneg Fwd Exam Detailed
[2022-10-17 07:59] LABS: Urine Appearance Cloudy (CLEAR); Urine Color Yellow (Yellow)
[2022-10-17 08:00] LABS: Protein Urine 2+ (Negative); Specific Gravity, Urine 1.005 (1.005-1.030); pH Urine 8 (5-7)
[2022-10-17 08:01] LABS: Add Urine Microscopic? YES; Bilirubin Urine Neg (Negative); Blood Urine Neg (Negative); Glucose Urine UA 4+ (Normal); Ketones Urine 1+ (Negative); Leukocyte Esterase Urine 2+ (Negative); Nitrate Urine Negative (Negative); Sulfosalicylic Acid Urine Positive (Negative); Urobilinogen Urine Norm (Negative)
[2022-10-17 08:02] LABS: Bacteria Urine 2+ /hpf; RBC Urine 0-4 /hpf (0-2); Transitional Epi Cells Urine 0-4 /hpf; WBC Urine TOO NUMEROUS TO CNT /hpf (0-5)
[2022-10-17 08:03] LABS: Add Urine Culture? Yes
--- NOTE | 2022-10-17 08:08 | CT_ITS ---
WS: [id number] CT ABDOMEN PELVIS TECHNIQUE: Noncontrast CT of the abdomen and pelvis with coronal and sagittal reformatted images. CLINICAL INFORMATION: flank pain COMPARISON: March 05, 2022 DLP: 318.[address] scans at [facility] use at least one of these dose optimization techniques: automated e xposure control; mA and/or kV adjustment per patient size (includes targeted exams where dose is matc hed to clinical indication); or iterative reconstruction. FINDINGS: Sternotomy. Cardiomegaly. Loculated pleural fluid in the lung bases with compressive atelectasis LEFT greater than RIGHT. Interstitial edema in the lung bases. Hepatomegaly. Large RIGHT hepatic lobe. Fl uid distention gallbladder similar to the prior examination with cholelithiasis. Small esophageal hia gabriela hernia. Splenic artery calcification. No hydronephrosis in either kidney. No visualized obstructi ng renal or ureteral calculi. Vascular calcification. Normal caliber abdominal aorta. Diffuse bladder wall thickening. Recommend correlation for cystitis. Bulky fibroid uterus. Stable simple LEFT renal cyst. Small increased attenuation RIGHT renal lesion l ikely hemorrhagic or proteinaceous cyst. Mild diffuse body wall anasarca. RIGHT ovarian cystic lesion measuring 3.2 cm is unchanged. Grade 1 anterolisthesis L5 on S1. LEFT inferior pubic ramus fracture. Slight displacement with cortical overlap. Additional fracture at the LEFT pubic symphysis. Additional slightly comminuted fracture involving the LEFT anterior acetab ulum. LEFT femur appears normal. Soft tissue edema about the fracture sites. Small amount of air in t he LEFT inferior pelvic soft tissues. Air distended rectum. CT/CT kidney stone [id number] IMPRESSION: Images degraded by motion. 1. LEFT inferior pubic ramus and LEFT pubic symphysis fractures have an acute appearance with surrounding edema and a small amount of associated air. 2. Slightly comminuted anterior LEFT acetabular fracture. 3. No visualized LEFT femoral fractures. 4. No hydronephrosis in either kidney. 5. Loculated pleural fluid in the lung bases LEFT greater than RIGHT with comp ressive atelectasis. Interstitial edema in the lung bases. 6. Cardiomegaly. 7. Fluid distended gallbladder with cholelithiasis. 8. Diffuse bladder wall thickening. Recommend correlation for cystitis. 9. Bulky Fibroid uterus Notified José Miguel Gonaslez DO at 10/17/2022 9:07 AM.
[2022-10-17] MEDS: sodium chloride 0.9% 1,360.77 ML 1360.77 ML IV (08:35)
[2022-10-17] MEDS: cefTRIAXone 1,000 MG in sodium chloride 0.9% (plus) 50 ML 100 MG IV (08:35)
--- NOTE | 2022-10-17 08:42 | PC.PHAR ---
pts daughter verified pts medications- rx filled 09/25/22 for novolog flexpen u-100 give 5 units and ss tid pts daughter states the pt is taking per sliding scale three to five times a day states she was giving the pt insulin q2h on 10/16/22-pts daughter states the pt hasnt been taking her levothyroxine 37.5mcg daily for about a month ext med history shows last filled 09/25/22 30d/s-pts daughter states the pt takes sevelamer carb 1600mg qam rx filled 07/26/22 30d/s for 1600mg tid with meals-notes are made in the pharmacy comments
[2022-10-17 08:47] LABS: Reflex Lactate Order REFLEX LACTIC ORDERD
--- NOTE | 2022-10-17 08:54 | ECG_ITS ---
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 Measurements Intervals [place] Rate: 75 P: 77 MN: 201 QRS: 63 QRSD: 99 T: 204 QT: 420 QTc: 470 Interpretive Statements SINUS RHYTHM POSSIBLE LEFT ATRIAL ENLARGEMENT [-0.1mV P-WAVE IN V1/V2] ST DEVIATION AND MODERATE T-WAVE ABNORMALITY, CONSIDER LATERAL ISCHEMIA [-0.1+ mV T-WAVE IN I/aVL/V5/V6] ST DEVIATION AND MODERATE T-WAVE ABNORMALITY, CONSIDER INFERIOR ISCHEMIA [-0.1+ mV T-WAVE IN II/aVF] Compared to ECG 10/17/2022 07:00:51 No significant changes Electronically Signed On 10-17-2022 11:59:07 ESTHETICIAN SPA by Dean Gilmore M.D. [id number]
--- NOTE | 2022-10-17 09:03 | CT_ITS ---
WS: [id number] CT CHEST TECHNIQUE: Contrast enhanced CT of the chest with coronal and sagittal reformatted images. CLINICAL INFORMATION: loculated pleural effusion COMPARISON: None. DLP: 274.[address] scans at [facility] use at least one of these dose optimization techniques: automated e xposure control; mA and/or kV adjustment per patient size (includes targeted exams where dose is matc hed to clinical indication); or iterative reconstruction. FINDINGS: Chronic emphysematous changes. Interstitial edema in the lung bases. Cardiomegaly. Slightly ectatic a scending thoracic aorta measuring 3.2 cm. Sternotomy. CABG. Loculated pleural fluid in the RIGHT grea ter than LEFT lung bases extending into the upper lobes posteriorly LEFT greater than RIGHT. Associat ed compressive atelectasis. Diffuse body wall anasarca. Vascular calcification. Tiny RIGHT thyroid nodule.Small esophageal hiatal hernia. Splenic artery calcification. Adrenal glands are normal. Mild thoracic kyphosis. Hypertrophi c changes lower thoracic spine. LEFT CT/CT chest w con* [id number] IMPRESSION: 1. Cardiomegaly. 2. Bilateral loculated pleural effusions LEFT greater than RIGHT with compress femi atelectasis. 3. Interstitial edema in the lung bases. Prior sternotomy with CABG.
[2022-10-17 09:43] LABS: Troponin 5 2HR 120.3 ng/L (0-10); Troponin 5 2HR Delta -0.7 ABS# (0-10)
--- NOTE | 2022-10-17 09:55 | P.CONIM_ITS ---
Providers/Reason For Consult Consulting Physician/Specialty*: pavel stephen md / telenephrology Reason for Consult*: ESRD care Requesting Physician: Dr Gonsalez Primary Care Provider: Zenon De Los Santos MD History of Present Illness History of Present Illness Cony Temple is a 66 year old female h/o ESRD, DM, HTN, CAD, low EF, pleural effusions, and gallstones. Pt sent from home w/ AMS, hyperglycemia. Pt missed dialysis yesterday. she is minimally responsive in ER and renal is called to consult. no family member is with her. Review of Systems Narrative: unable to obtain due to poor MS Medications/Allergies Home Medications Medication Instructions Recorded Confirmed Last Taken Type insulin aspart U-100 100 unit/mL See Rx Instructions .Route .COMPLEX 08/21/21 10/17/22 10/16/22 History (3 mL) subcutaneous pen (Novolog was giving Flexpen U-100 Insulin aspart) q2h 10/16 pantoprazole 40 mg tablet,delayed 40 mg PO QAM 08/21/21 10/17/22 08/20/21 History release amlodipine 10 mg tablet 10 mg PO BEDTIME 03/06/22 10/17/22 Unknown History aspirin 81 mg tablet,delayed 81 mg PO QAM 03/06/22 10/17/22 Unknown History release atorvastatin 40 mg tablet 40 mg PO QPM 03/06/22 10/17/22 Unknown History carvedilol 12.5 mg tablet 12.5 mg PO BID 03/06/22 10/17/22 Unknown History clopidogrel 75 mg tablet 75 mg PO QAM 03/06/22 10/17/22 Unknown History levothyroxine 75 mcg tablet 37.5 mcg PO DAILY 03/06/22 10/17/22 1 Month Ago History ~09/16/22 pt stop taking vit B,C-folic ac 800 mcg-zinc 12.5 1 tab PO QAM 03/06/22 10/17/22 Unknown History mg-selen-D3 2,000 unit-vit E tablet (RenaPlex-D) hydrocodone 5 mg-acetaminophen 325 1 tab PO Q6H PRN pain #14 tabs 10/14/22 10/17/22 Unknown Rx mg tablet insulin glargine 100 unit/mL (3 15 - 20 unit SUBCUT BID 10/17/22 10/17/22 Unknown History mL) subcutaneous pen (Basaglar KwikPen U-100 Insulin) lorazepam 1 mg tablet 1 mg PO TID 10/17/22 10/17/22 Unknown History metolazone 5 mg tablet 5 mg PO DAILY 30 minutes before 10/17/22 10/17/22 1 Week Ago History torsemide ~10/10/22 sevelamer carbonate 800 mg tablet 1,600 mg PO QAM 10/17/22 10/17/22 Unknown History torsemide 100 mg tablet 100 mg PO QAM 10/17/22 10/17/22 Unknown History venlafaxine 150 mg 150 mg PO QAM 10/17/22 10/17/22 Unknown History capsule,extended release 24 hr Allergies Allergy/AdvReac Type Severity Reaction Status Date / Time azithromycin Allergy Unknown Verified 10/17/22 08:06 erythromycin base Allergy Unknown Verified 10/17/22 08:07 mycins Allergy Unknown Uncoded 11/09/21 11:13 PFSH Acute PFSH: Medical History ESRD on dialysis Gastroparesis Hypertension Uncontrolled diabetes mellitus Social History Smoking and tobacco status: never smoked Vitals/I&O/Wt Last Vital Signs Temp 98.4 F 10/17/22 06:38 Pulse 75 10/17/22 09:00 Resp 17 10/17/22 09:00 BP 114/66 10/17/22 09:00 Pulse Ox 97 10/17/22 09:00 O2 Del Method 10/17/22 09:00 O2 Flow Rate 2 10/17/22 06:49 10/16/22 10/17/22 10/17/22 22:59 06:59 14:59 Intake Total 50 / 50 Balance 50 / 50 Weight last 48 hrs Weight 45.359 kg Physical Exam Narrative: lethargic, Vs noted heent- nc/at, eomi, anicteric neck supple lungs clear heart reg abd soft, nt, ND + bs ext no edema neuro- confused Data 10/17/22 06:43 10/17/22 06:43 Micro: Microbiology 10/17/22 07:43 Blood Culture - Preliminary Blood SPECIMEN COLLECTED 10/17/22 07:45 Blood Culture - Preliminary Blood SPECIMEN COLLECTED CT Abd/Pel: My impression: result per radilogist 1.? LEFT inferior pubic ramus and LEFT pubic symphysis fractures have an acute appearance with surrounding edema and a small amount of associated air. 2.? Slightly comminuted anterior LEFT acetabular fracture. 3.? No visualized LEFT femoral fractures. 4.? No hydronephrosis in either kidney. 5.? Loculated pleural fluid in the lung bases LEFT greater than RIGHT with compressive atelectasis. Interstitial edema in the lung bases. 6.? Cardiomegaly. 7.? Fluid distended gallbladder with cholelithiasis. 8.? Diffuse bladder wall thickening. Recommend correlation for cystitis. 9.? Bulky Fibroid uterus A&P Assessment and plan (1) ESRD (end stage renal disease) on dialysis: 66 yr old female: 1. Pelvic fractures -per ortho 2. ESRD- will dialyze today for 3.5 hrs, no fluid removal 2k bath 3. AMS - monitor w/ dialysis. assess for infection. consider thoracentesis -normal wbc -pt has a lacate of 6.2- concern for infection or abdominal process Q UTI on ua- consider abx 4. loculated pleural effusions 5. hypoglycemia/ DM 6. abg- pH is well compensated 7. mild hyponatremia - likely from ESRD and pleural effusions seen and examine dw/ rN- telehealth visit time spent 50 minutes discussed w/ dR Gonsalez Plan see above Consult Attestations 2 Medical Necessity Statement: ams, hypoglycemia, pelvic fx, ESRD, hyperkalemia, pleural effusions Time Spent in Patient Care: Greater than 35 minutes (>than 50% of time spent in counselling and/or direct pt care on unit) . Coding Level of Care Code Acute Analyst Business Analysis for Chg Fwd Diagnoses ESRD (end stage renal disease) on dialysis N18.6; Z99.2
[2022-10-17] MEDS: iohexol 350 mg/mL 500 mL Btl (per mL) IV (10:16)
[2022-10-17 10:48] LABS: Lactic Acid level (Lactate) 3.3 mmol/L (0.5-2.2)
[2022-10-17 10:54] LABS: Uric Acid 5.4 mg/dL (2.4-5.7)
[2022-10-17] MEDS: vancomycin 1,000 MG in sodium chloride 0.9% 250 ML 250 MG IV (11:00)
[2022-10-17 11:04] LABS: Hepatitis B Surface AB 39.6 (11.5-1000); Hepatitis B Surface Antigen Non-Reactive (Nonreactive); Hepatitis C Virus Antibody Non-Reactive (Nonreactive)
[2022-10-17 11:14] LABS: Glucose Point of Care 174 mg/dL (70-110)
--- NOTE | 2022-10-17 12:36 | P.HP_ITS ---
Providers/Chief Complaint Admitting Physician: Cole Chavis MD Primary Care Provider: Zenon De Los Santos MD Chief Complaint: elevated blood sugar History of Present Illness Cony Temple is a 66 year old female presenting to the emergency department with confusion. Patient is alert, and responsive but is not a good historian, and falls back to sleep quickly. From what I gather from the emergency department physician, nephrology, as well as documentation with conversations with family which is not present currently in past patient has had some confusion this morning. She has been having higher blood sugars than usual. She had missed dialysis last week. She is on a Sunday schedule for dialysis, missing . She did have dialysis Sunday acc ording to her dialysis center. There was no note of any fevers. There is no note of any vomiting. Patient herself believes she remembers a fall about 2 days ago, where she fell in her bedroom. She denies any syncope. She reports she has some pain in her back/pelvis when she is moving from my exam. Other history is somewhat difficult. In the emergency department she got a dose of Rocephin, dose of vancomycin, IV fluids, and 15 units of insulin. Consultations for orthopedics and nephrology were called. Review of Systems General: Reports: ROS unobtainable due to mental status (Patient falls back asleep quickly, making review of systems difficult) Medications/Allergies Home Medications Medication Instructions Recorded Confirmed Last Taken Type insulin aspart U-100 100 unit/mL See Rx Instructions .Route .COMPLEX 08/21/21 10/17/22 10/16/22 History (3 mL) subcutaneous pen (Novolog was giving Flexpen U-100 Insulin aspart) q2h 10/16 pantoprazole 40 mg tablet,delayed 40 mg PO QAM 08/21/21 10/17/22 08/20/21 History release amlodipine 10 mg tablet 10 mg PO BEDTIME 03/06/22 10/17/22 Unknown History aspirin 81 mg tablet,delayed 81 mg PO QAM 03/06/22 10/17/22 Unknown History release atorvastatin 40 mg tablet 40 mg PO QPM 03/06/22 10/17/22 Unknown History carvedilol 12.5 mg tablet 12.5 mg PO BID 03/06/22 10/17/22 Unknown History clopidogrel 75 mg tablet 75 mg PO QAM 03/06/22 10/17/22 Unknown History levothyroxine 75 mcg tablet 37.5 mcg PO DAILY 03/06/22 10/17/22 1 Month Ago History ~09/16/22 pt stop taking vit B,C-folic ac 800 mcg-zinc 12.5 1 tab PO QAM 03/06/22 10/17/22 Unknown Histo ry mg-selen-D3 2,000 unit-vit E tablet (RenaPlex-D) hydrocodone 5 mg-acetaminophen 325 1 tab PO Q6H PRN pain #14 tabs 10/14/22 10/17/22 Unknown Rx mg tablet insulin glargine 100 unit/mL (3 15 - 20 unit SUBCUT BID 10/17/22 10/17/22 Unknown History mL) subcutaneous pen (Basaglar KwikPen U-100 Insulin) lorazepam 1 mg tablet 1 mg PO TID 10/17/22 10/17/22 Unknown History metolazone 5 mg tablet 5 mg PO DAILY 30 minutes before 10/17/22 10/17/22 1 Week Ago History torsemide ~10/10/22 sevelamer carbonate 800 mg tablet 1,600 mg PO QAM 10/17/22 10/17/22 Unknown History torsemide 100 mg tablet 100 mg PO QAM 10/17/22 10/17/22 Unknown History venlafaxine 150 mg 150 mg PO QAM 10/17/22 10/17/22 Unknown History capsule,extended release 24 hr Allergies Allergy/AdvReac Type Severity Reaction Status Date / Time azithromycin Allergy Unknown Verified 10/17/22 08:06 erythromycin base Allergy Unknown Verified 10/17/22 08:07 mycins Allergy Unknown Uncoded 11/09/21 11:13 PFSH Acute PFSH: Medical History (Updated 10/17/22 @ 13:13 by Cole Chavis MD) CAD in [place] artery Depression ESRD on dialysis Gastroparesis GERD (gastroesophageal reflux disease) Hyperlipidemia Hypertension Hypothyroidism Uncontrolled diabetes mellitus Social History (Updated 10/17/22 @ 13:09 by Cole Chavis MD) Smoking and tobacco status: never smoked Alcohol intake: never Substance/Drug Use: never Other PFSH information: Supplemental PFSH Information: Unable to give family history at this time. No significant family history, or surgical history noted on documentation review. Vitals/I&O/Wt Last Vital Signs Temp 98.4 F 10/17/22 06:38 Pulse 68 10/17/22 12:00 Resp 14 10/17/22 12:00 BP 114/69 10/17/22 12:00 Pulse Ox 93 10/17/22 12:00 O2 Del Method 10/17/22 12:00 O2 Flow Rate 2 10/17/22 12:00 10/16/22 10/17/22 10/17/22 22:59 06:59 14:59 Intake Total 1410.77 / 1410.77 Balance 1410.77 / 1410.77 Weight last 48 hrs Weight 45.359 kg Physical Exam Narrative: General exam is a sleepy white female who will come awake briefly with significant verbal stimuli and answer few questions. HEENT: Pupils are equally round. Extraocular movements are intact. Oropharynx is clear. Neck is supple no lymphadenopathy thyromegaly Cardiovascular heart sounds distant. Regular rate and rhythm. 2/6 systolic murmur Lungs diminished breath sounds bilaterally. Crackles are noted bibasilar. No wheezing. Dialysis catheter is noted right chest Abdomen soft, positive bowel sounds. No obvious organomegaly exam is deferred Back no decubiti Extremities no cyanosis clubbing. 2+ edema is noted bilaterally. No skin breakdown. Skin no rash or breakdown Neuro no obvious focal deficits. Moving all extremities. Very sleepy. Data 10/17/22 06:43 10/17/22 06:43 Other Labs: Chest CT demonstrates bilateral loculated pleural effusions left greater than right. This has been a finding noted in the past, and even a thoracentesis demonstrating this was transudative and may. Some interstitial edema noted in the lung bases Abdomen pelvis CT demonstrates left inferior pubic rami fracture, left pubic symphysis fracture, and slightly comminuted anterior left acetabular fracture. No hydronephrosis is noted. Cholelithiasis noted some bladder wall thickening and fibroid uterus Head CT no acute findings ABG demonstrates pH 7.38, PCO2 41, PO2 of 103 on 2 L Lactic acid 6.2 with repeat of 3.3 LFTs normal with exception of alk phos of 310 Troponin 121 with repeat of 120 Lipase 79 Urinalysis with too numerous to count whites, 0-4 reds Serum ketones negative Hepatitis B antigen, surface antibody, hepatitis C antibody all negative Previous echo August 2021 demonstrated an EF of 45 to 50% EKG demonstrates sinus rhythm, normal axis, flipped T waves inferior and posteriorly Micro: Microbiology 10/17/22 07:43 Blood Culture - Preliminary Blood SPECIMEN COLLECTED 10/17/22 07:45 Blood Culture - Preliminary Blood SPECIMEN COLLECTED A&P Assessment and plan (1) Acute metabolic encephalopathy: Patient presents with acute metabolic encephalopathy. Most likely this is secondary to her UTI CT head shows no acute findings Hyperglycemia, could cause similar symptoms. Hold lorazepam currently, narcotics secondary to lethargy (2) UTI (urinary tract infection): Too numerous to count white blood cells on urinalysis Urine and blood culture will be obtained Continue Rocephin started in the emergency department Note that she got 1 dose of vancomycin per nephrology. CT abdomen and pelvis demonstrates no evidence of obstruction (3) Uncontrolled diabetes mellitus: Sliding scale insulin Consistent carb diet, when initiating diet Initiate glargine insulin 10 units every 24 hours (4) ESRD (end stage renal disease) on dialysis: Nephrology consultation They have plans on dialyzing today which should help hyperkalemia (5) Hyperkalemia: Mild, should resolve with dialysis (6) Pelvic fracture: Patient reports fall 2 days ago. She sustained pelvic fracture, and an lillian tabular fracture. Orthopedic consultation Therapy consultations. Likely cannot start this until tomorrow (7) Troponin level elevated: Elevated secondary to renal disease. Myocardial infarction not suspected (8) Elevated lipase: No evidence for pancreatitis. Elevated secondary to end-stage renal disease Plan Multiple other medical Gallegos as outlined in past medical history Full code currently Heparin for DVT prophylaxis Attestations Medical Necessity Statement*: Will require greater than 2 midnight stay for evaluation and treatment of acute encephalopathy, end-stage renal disease with evidence of fluid overload, pelvic fracture Critical Care Time: The high probability of a clinically significant, sudden or life threatening deterioration of the patient's [neurologic, infectious, renal] system(s) required my full and direct attention, intervention and personal management. The critical care time is as shown. This time is in addition to time spent performing any reported procedures but includes the fol lowing: [x] Data and vital sign review and interpretation [x] Patient assessment, examination and intervention [x] Documentation [x] Medication orders and management Critical Care Time (min): 45 Coding Level of Care Code Acute Information [employer] for [facility] Jo Diagnoses Acute metabolic encephalopathy G93.41 UTI (urinary tract infection) N39.0 Uncontrolled diabetes mellitus E11.65 ESRD (end stage renal disease) on dialysis N18.6; Z99.2 Hyperkalemia E87.5 Pelvic fracture S32.9XXA Troponin level elevated R77.8 Elevated lipase R74.8
--- NOTE | 2022-10-17 12:54 | ECG_ITS ---
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 Measurements Intervals [place] Rate: 75 P: 73 TX: 208 QRS: -3 QRSD: 101 T: 132 QT: 430 QTc: 481 Interpretive Statements SINUS RHYTHM MODERATE T-WAVE ABNORMALITY, CONSIDER LATERAL ISCHEMIA [-0.1+ mV T-WAVE IN I/aVL/V5/V6] Compared to ECG 10/17/2022 09:06:08 No significant changes Electronically Signed On 10-17-2022 17:28:07 CHILD WELFARE DIRECTOR by Dean Gilmore M.D. [id number]
[2022-10-17 13:16] LABS: Troponin 5 6HR 106.8 ng/L (0-10); Troponin 5 6HR Delta -14.2 ng/L (0-12)
--- NOTE | 2022-10-17 14:50 | PC.NURSE ---
Pt arrives from Emergency dept via stretcher. Bruising noted on her shoulders and left hip, left arm. JAKUB [employer] systems test engineer nurse here, ready t start dialysis
--- NOTE | 2022-10-17 16:47 | P.CONIM_ITS ---
Providers/Reason For Consult Consulting Physician/Specialty*: Alec Vilchis DO/orthopedic surgery Reason for Consult*: Left superior and inferior pubic rami fractures Left acetabular fracture Requesting Physician: Dr. Gonsalez Attending Physician: Cole Chavis MD Primary Care Provider: Zenon De Los Santos MD History of Present Illness History of Present Illness Cony Temple is a 66 year old female presenting to the emergency department with confusion.? Patient had missed dialysis last week. She subsequently was worked up and admitted by the hospitalist team and receiving dialysis in the ICU on my evaluation. In the emergency department a CT scan was performed. Talking with her daughter who is at bedside who is her historian states she had a fall back last Sunday. States that had presented to the emergency department for evaluation but apparently no fractures were shown on x-ray. At this point CT scan of the pelvis demonstrates a superior and inferior pubic rami area as well as a acetabular fracture of the anterior wall. As result orthopedics was consulted for treatment recommendations. Patient in ICU receiving dialysis on my evaluation. According to daughter patient has been ambulating as tolerated with antalgic gait and complaining of pain in her left hip/pelvis. Review of Systems General: Reports: ROS unobtainable due to mental status (Patient sleepy during dialysis limiting thorough review of systems) Medications/Allergies Home Medications Medication Instructions Recorded Confirmed Last Taken Type insulin aspart U-100 100 unit/mL See Rx Instructions .Route .COMPLEX 08/21/21 10/17/22 10/16/22 History (3 mL) subcutaneous pen (Novolog was giving Flexpen U-100 Insulin aspart) q2h 10/16 pantoprazole 40 mg tablet,delayed 40 mg PO QAM 08/21/21 10/17/22 08/20/21 History release amlodipine 10 mg tablet 10 mg PO BEDTIME 03/06/22 10/17/22 Unknown History aspirin 81 mg tablet,delayed 81 mg PO QAM 03/06/22 10/17/22 Unknown History release atorvastatin 40 mg tablet 40 mg PO QPM 03/06/22 10/17/22 Unknown History carvedilol 12.5 mg tablet 12.5 mg PO BID 03/06/22 10/17/22 Unknown History clopidogrel 75 mg tablet 75 mg PO QAM 03/06/22 10/17/22 Unknown History levothyroxine 75 mcg tablet 37.5 mcg PO DAILY 03/06/22 10/17/22 1 Month Ago History ~09/16/22 pt stop taking vit B,C-folic ac 800 mcg-zinc 12.5 1 tab PO QAM 03/06/22 10/17/22 Unknown History mg-selen-D3 2,000 unit-vit E tablet (RenaPlex-D) hydrocodone 5 mg-acetaminophen 325 1 tab PO Q6H PRN pain #14 tabs 10/14/22 10/17/22 Unknown Rx mg tablet insulin glargine 100 unit/mL (3 15 - 20 unit SUBCUT BID 10/17/22 10/17/22 Unknown History mL) subcutaneous pen (Basaglar KwikPen U-100 Insulin) lorazepam 1 mg tablet 1 mg PO TID 10/17/22 10/17/22 Unknown History metolazone 5 mg tablet 5 mg PO DAILY 30 minutes before 10/17/22 10/17/22 1 Week Ago History torsemide ~10/10/22 sevelamer carbonate 800 mg tablet 1,600 mg PO QAM 10/17/22 10/17/22 Unknown History torsemide 100 mg tablet 100 mg PO QAM 10/17/22 10/17/22 Unknown History venlafaxine 150 mg 150 mg PO QAM 10/17/22 10/17/22 Unknown History capsule,extended release 24 hr Allergies Allergy/AdvReac Type Severity Reaction Status Date / Time azithromycin Allergy Unknown Verified 10/17/22 08:06 erythromycin base Allergy Unknown Verified 10/17/22 08:07 mycins Allergy Unknown Uncoded 11/09/21 11:13 PFSH Acute PFSH: Medical History (Updated 10/17/22 @ 15:02 by José Miguel Gonsalez DO) CAD in [place] artery Depression ESRD on dialysis Gastroparesis GERD (gastroesophageal reflux disease) Hyperlipidemia Hypertension Hypothyroidism Uncontrolled diabetes mellitus Social History (Updated 10/17/22 @ 13:09 by Cole Chavis MD) Smoking and tobacco status: never smoked Alcohol intake: never Substance/Drug Use: never Vitals/I&O/Wt Last Vital Signs Temp 98.4 F 10/17/22 06:38 Pulse 75 10/17/22 12:36 Resp 14 10/17/22 12:36 BP 114/69 10/17/22 12:36 Pulse Ox 92 10/17/22 12:36 O2 Del Method 10/17/22 12:36 O2 Flow Rate 2 10/17/22 12:36 10/17/22 10/17/22 10/17/22 06:59 14:59 22:59 Intake Total 1410.77 / 1410.77 Balance 1410.77 / 1410.77 Weight last 48 hrs Weight 100 lb Physical Exam Narrative: Examination is limited secondary to patient receiving dialysis and sleepy however she is arousable and able to follow simple commands. She denies any tenderness to palpation of the bilateral upper extremity joints of the shoulder elbows wrists or hands. She is currently receiving dialysis and a central venous catheter. Distal pulses to the bilateral upper extremities are palpable hands are warm well-perfused brisk capillary refill less than 2 seconds. No deformities noted to bilateral upper extremity arms. Patient does have tenderness to palpation of pelvic compression particular over the left hip. No tenderness to palpation of the right hip knee foot or ankle she is able to wiggle her toes plantarflex and dorsiflex her ankle and sensation tact light touch distally to the right lower extremity. Distal pulses palpable. Patient has a negative logroll to the bilateral lower extremities. She is able to wiggle her toes plantarflex and dorsiflex her ankle and sensations intact light touch distally to the left lower extremity. Distal pulses are palpable. Left lower extremity is warm well perfused. Compartment soft and compressible. She has tenderness palpation over the anterior hip as well as the tenderness to palpation over the pubic rami. Constitutional-receiving dialysis and sleepy, but will arouse and follow commands simple HEENT?normocephalic atraumatic Respiratory?no acute respiratory distress Cardio?distal pulses palpable Data 10/17/22 06:43 10/17/22 06:43 Micro: Microbiology 10/17/22 07:43 Blood Culture - Preliminary Blood SPECIMEN COLLECTED 10/17/22 07:45 Blood Culture - Preliminary Blood SPECIMEN COLLECTED Other CT: My impression: CT abdomen and pelvis 10/17/2022 Demonstrates superior and inferior pubic rami fractures as well as a small nondisplaced fracture line in the anterior wall the acetabulum appears to be nonweightbearing surface and only involves less than 5% of the acetabular wall. Radiologist's impression: IMPRESSION: Images degraded by motion. ? 1.? LEFT inferior pubic ramus and LEFT pubic symphysis fractures have an acute appearance with surrounding edema and a small amount of associated air. 2.? Slightly comminuted anterior LEFT acetabular fracture. 3.? No visualized LEFT femoral fractures. 4.? No hydronephrosis in either kidney. 5.? Loculated pleural fluid in the lung bases LEFT greater than RIGHT with compressive atelectasis. Interstitial edema in the lung bases. 6.? Cardiomegaly. 7.? Fluid distended gallbladder with cholelithiasis. 8.? Diffuse bladder wall thickening. Recommend correlation for cystitis. 9.? Bulky Fibroid uterus A&P Assessment and plan (1) Fracture acetabulum-closed: (2) Closed fracture of pubic ramus: Plan Nonoperative treatment for left acetabular fracture Nonoperative treatment for left superior and inferior pubic rami fractures Toe-touch weightbearing left lower extremity PT/OT Patient have a diet Internal medicine is primary DVT prophylaxis per primary-patient already on home anticoagulants of aspirin as well as Plavix at baseline Pain control No further orthopedic surgical intervention required at this time. Orthopedic surgical team will sign off patient at this time and follow peripherally. If there is any questions pertaining patient's care feel free to contact my office or myself. Appreciate allow me to partake in the care of this patient. Would recommend patient continue toe-touch weightbearing left lower extremity for closed treatment of nondisplaced left acetabular and left superior and inferior pubic rami fractures will follow-up with me in the office in 2 weeks for repeat evaluation and x-rays. Contact the office for any questions or concerns. Consult Attestations Medical Necessity Statement: Treatment of left acetabular fracture and superior and inferior pubic rami fractures Coding Level of Care Code Acute Car Checker for [facility] Fwd Diagnoses Fracture acetabulum-closed S32.409A Closed fracture of pubic ramus S32.599A Time Spent (min) 50
[2022-10-17 17:36] LABS: Glucose Point of Care 140 mg/dL (70-110)
[2022-10-17] MEDS: heparin, porcine 1,000 unit/mL INJ 10 mL HE (17:48)
[2022-10-17] MEDS: sodium chloride 0.9% 1,000 ML 50 ML IV (17:48)
[2022-10-17] MEDS: famotidine 20 mg/2 mL INJ IVP (17:49)
[2022-10-17] MEDS: heparin 5,000 unit/mL INJ 1 mL 5000 UNIT SUBCUT (17:51)
[2022-10-17] MEDS: carvedilol 12.5 mg Tablet PO (17:51)
[2022-10-17] MEDS: atorvastatin 40 mg Tablet PO (17:51)
--- NOTE | 2022-10-17 19:00 | PC.NURSE ---
Bedside report completed with JAKUB Giordano
--- NOTE | 2022-10-17 19:20 | PC.NURSE ---
Shift Note: Pt has rested in bed with her eyes closed since arriving to ICU. Dialysis completed, 1000ml out. Sinus rhythm noted on monitor. Normotensive. Pt oriented. No urine output this shift. Pt did have slight difficulty swallowing atorvastatin with s ips of water this evening. Frequent safety and comfort rounds continue. Orders and/or nursing care completed as indicated. Patient monitored for response to intervention and treatment(s). Education provided includes famotidine, insulin, heparin and plan of care.. Patient and/or litigation claim representative verbalized understanding of medications and plan of care. Will continue to monitor.
[2022-10-17 20:47] LABS: Glucose Point of Care 379 mg/dL (70-110)
[2022-10-17] MEDS: insulin lispro 100 unit/1 mL SUBCUT (20:57)
[2022-10-17] MEDS: insulin glargine 100 units/1 mL 10 UNIT SUBCUT (20:58)
[2022-10-17 22:17] LABS: Glucose Point of Care 343 mg/dL (70-110)
[2022-10-17 23:58] LABS: Glucose Point of Care 227 mg/dL (70-110)
[2022-10-18] VITALS (45 sets, daily range): BP systolic 122–146; BP diastolic 62–81; PULSE 67–81; RESP 10–26; TEMP 36.6–36.7; O2SAT 92–98; BMI 19.1
--- NOTE | 2022-10-18 02:49 | PC.NURSE ---
Current blood sugar 379. But at 1732 she was 140. She's supposed to get 14 units humalog and 10 units lantus. per MD recheck in 1 hr recheck 343 per MD recheck 1 hour recheck 227. per monitor. patient voided 75ml this rn bladder scanned her and scan showed 209ml per MD repeat scan in 1 hour have her try to void again then repeat bladder scan showed >474. Patient voided around 25ml per MD place [place]. MD notified on low UO and irrigation done
[2022-10-18 04:48] LABS: Basophils % 0.4 %; Eosinophils # 0.1 10^3/uL (0.0-0.8); Hematocrit 32.1 % (37.0-47.0); Hemoglobin 10.5 g/dL (11.5-15.3); Lymphocytes # 1.3 10^3/uL (0.8-4.8); Lymphocytes % 16.8 %; Mean Corpuscular HGB Conc 32.7 g/dL (30.0-36.0); Mean Corpuscular Hemoglobin 30.5 pg (28.0-34.0); Mean Corpuscular Volume 93.3 fl (81-99); Monocytes # 0.6 10^3/uL (0.2-0.9); Neutrophils # 5.63 10^3/uL (1.8-7.7); Neutrophils % 73.4 %; Nucleated Red Blood Cells % 0 %; Platelet Count 323 10^3/cmm (130-400); Red Blood Count 3.44 10^6/uL (4.1-5.3); Red Cell Distribution Width 15.9 % (12.1-15.1); White Blood Count 7.7 10^3/uL (4.0-10.0)
[2022-10-18] MEDS: heparin 5,000 unit/mL INJ 1 mL 5000 UNIT SUBCUT ×2 (04:57→16:40)
[2022-10-18] MEDS: famotidine 20 mg/2 mL INJ IVP ×2 (04:58→16:40)
[2022-10-18] MEDS: clopidogrel 75 mg Tablet PO (05:01)
[2022-10-18] MEDS: aspirin 81 mg EC Tablet PO (05:01)
[2022-10-18 05:07] LABS: Glucose Point of Care 124 mg/dL (70-110)
[2022-10-18 05:10] LABS: Alanine Aminotransferase 27 U/L (0-33); Albumin Level 2.9 g/dL (3.5-5.2); Alkaline Phosphatase 332 U/L (35-105); Aspartate Amino Transferase 25 U/L (0-32); Blood Urea Nitrogen 31 mg/dL (8-23); Calcium 8.3 mg/dL (8.5-10.5); Carbon Dioxide 21 mmol/L (22-29); Glomerular Filtration Rate 18.3 mL/min (90-130); Glucose 118 mg/dL (65-115); Magnesium 2.1 mg/dL (1.7-2.3); Phosphorus 3.3 mg/dL (2.5-4.5); Total Bilirubin 0.3 mg/dL (0.15-1.2); Total Protein 5.9 g/dL (6.6-8.7)
[2022-10-18 05:16] LABS: Potassium 4.4 mmol/L (3.5-5.1)
[2022-10-18 05:33] LABS: Anion Gap 22.4 (5-19); Chloride 97 mmol/L (98-107); Iron 69 ug/dL (37-145); Osmolality Calculated 290 mOsm/kg (285-295); Percent Saturation 51.8 % (20-50); Sodium 136 mmol/L (136-145); Total Iron Binding Capacity 133 mcg/dl; Unsaturated Iron Binding 64 ug/dL (112-347)
[2022-10-18 05:46] LABS: Ferritin 2539 ng/mL (15-150)
--- NOTE | 2022-10-18 07:02 | PM.PN ---
Subjective Subjective: feels better. is verbal and awake, alert, oriented x 2. no n/v/f/c/stokes/d Medications: Reviewed: Yes Medication Review Details: Current Medications Acetaminophen (Acetaminophen 325 Mg Tablet) 650 mg PO Q6H PRN PRN Reason: MILD PAIN Aspirin (Aspirin 81 Mg Ec Tablet) 81 mg PO QAM [facility] Last Admin: 10/18/22 05:01 Dose: 81 mg Atorvastatin Calcium (Atorvastatin 40 Mg Tablet) 40 mg PO QPM [facility] Last Admin: 10/17/22 17:51 Dose: 40 mg Carvedilol (Carvedilol 12.5 Mg Tablet) 12.5 mg PO BID [facility] Last Admin: 10/17/22 17:51 Dose: 12.5 mg Clopidogrel Bisulfate (Clopidogrel 75 Mg Tablet) 75 mg PO QAM [facility] Last Admin: 10/18/22 05:01 Dose: 75 mg Dextrose (Dextrose 50% Syringe 50 Ml) 25 ml IVP ONCE PRN; Protocol PRN Reason: hypoglycemia protocol Dextrose (Dextrose 50% Syringe 50 Ml) 50 ml IVP PRN PRN; Protocol PRN Reason: hypoglycemia protocol Famotidine (Famotidine 20 Mg/2 Ml Inj) 20 mg IVP Q12H [facility] Last Admin: 10/18/22 04:58 Dose: 20 mg Glucagon (Glucagon 1 Mg/Ml Inj 1 Ml) 1 mg IM ONCE PRN; Protocol PRN Reason: Adult Acute Hypoglycemia Prot. Heparin Sodium (Porcine) (Heparin 5,000 Unit/Ml Inj 1 Ml) 5,000 unit SUBCUT Q12H [facility] Last Admin: 10/18/22 04:57 Dose: 5,000 unit Sodium Chloride (Sodium Chloride 0.9%) 1,000 mls @ 0 mls/hr IV .Q0M PRN PRN Reason: hypotension or symptomatic Ceftriaxone Sodium 1,000 mg/ (Sodium Chloride) 50 mls @ 100 mls/hr IV Q24H [facility]; Protocol Sodium Chloride (Sodium Chloride 0.9%) 1,000 mls @ 50 mls/hr IV .Q20H [facility] Last Admin: 10/17/22 17:48 Dose: 50 mls/hr Dextrose (D5w) 500 mls @ 100 mls/hr IV ONCE PRN; Protocol PRN Reason: Adult Acute Hypoglycemia Prot Insulin Glargine (Insulin Glargine 100 Units/1 Ml) 10 unit SUBCUT BEDTIME [facility] Last Admin: 10/17/22 20:58 Dose: 10 unit Insulin Human Lispro (Insulin Lispro 100 Unit/1 Ml) 0 unit SUBCUT WM&BEDTIME ALYSSA; Protocol Last Admin: 10/17/22 20:57 Dose: 7 unit Levothyroxine Sodium (Levothyroxine 75 Mcg Tablet) 37.5 mcg PO DAILY [facility] Morphine Sulfate (Morphine 4 Mg/Ml Sdv 1 Ml) 2 mg IVP Q4H PRN PRN Reason: SEVERE PAIN Ondansetron HCl (Ondansetron 2 Mg/Ml Sdv 2 Ml) 4 mg IVP Q6H PRN PRN Reason: NAUSEA AND VOMITING Vitals/I&O/Wt Last Vital Signs Temp 98.0 F 10/18/22 04:42 Pulse 77 10/18/22 06:00 Resp 12 10/18/22 06:00 BP 143/71 10/18/22 06:00 Pulse Ox 96 10/18/22 06:00 O2 Del Method 10/17/22 20:00 O2 Flow Rate 3 10/17/22 20:00 10/17/22 10/18/22 10/18/22 22:59 06:59 14:59 Intake Total 280 / 1690.77 Output Total 75 / 75 55 / 130 Balance 205 / 1615.77 -55 / 1560.77 Weight last 48 hrs Weight 47.491 kg Weight 45.359 kg Physical Exam Narrative: awake and alert. interactive. VSS heent- nc/at, eomi, anicteric neck supple lungs clear heart reg abd soft, nt, ND + bs ext no edema neuro- improving MS, moves all extremities, + taliking Urinary Catheter Management: Dickson: Cath Placed During This Visit: yes Reason for Continuing Indwelling Catheter: Acute Urinary Retention or Obstruction Urinary Catheter Date of Insertion: 10/18/22 Urinary Catheter Time of Insertion: 00:21 Data 10/18/22 04:14 10/18/22 04:14 Micro: Microbiology 10/17/22 07:43 Blood Culture - Preliminary Blood SPECIMEN COLLECTED 10/17/22 07:45 Blood Culture - Preliminary Blood SPECIMEN COLLECTED A&P Assessment and plan (1) ESRD (end stage renal disease) on dialysis: 66 yr old female: 1. Pelvic fractures -per ortho 2. ESRD- s/p HD yesterday -repeat HD tomorrow, for 3.5 hrs,1L fluid removal 2k bath 3. AMS - improving 4. loculated pleural effusions 5. hypoglycemia/ DM 6. abg- pH is well compensated 7. mild hyponatremia - likely from ESRD and pleural effusions 8 anemia- hgb improving. high ferritin > 2000- no iv iron seen and examine dw/ rN- telehealth visit time spent 25 minutes Plan see above Attestations Medical Necessity Statement*: ams improving, ESRD on dialysis Time Spent in Patient Care: 16 - 35 minutes Coding Level of Care Code Acute [employer] Folk Arts Instructor for [facility] Fwd Diagnoses ESRD (end stage renal disease) on dialysis N18.6; Z99.2
[2022-10-18 08:23] LABS: Glucose Point of Care 83 mg/dL (70-110)
[2022-10-18] MEDS: cefTRIAXone 1,000 MG in sodium chloride 0.9% (plus) 50 ML 100 MG IV (08:35)
[2022-10-18] MEDS: levothyroxine 75 mcg Tablet 37.5 MCG PO (08:36)
[2022-10-18] MEDS: carvedilol 12.5 mg Tablet PO ×2 (08:36→17:46)
--- NOTE | 2022-10-18 10:26 | PC.CHAP ---
Pastoral Care Encounter/Spiritual Assessment Type of Contact [] Declined wide piece goods inspector visit [] Patient/Family/Request visit [] Outpatient visit [] Follow-up visit [] Physician referral [] Code/Alert [x] Routine visit [] Staff referral [] Actively dying [] Patient sleeping [] Family support [] [] Out of room [] Palliative care [] [x] Receiving care in room [] Pre-surgical visit [] Trauma [] Long length of stay [x] ICU visit [] Other: Relational/Emotional Strength [] Patient feels connected with others/family/visitors/staff [] Distress [] Loneliness/isolation [] Abandonment Spirituality of Patient [] Person of Annabel [] Attends Moravian of their Annabel [] Believes in Prayer [] Reads Bible or Christianity materials [] There are Spiritual issues to be addressed Supervisor Purification Interventions [x] Prayer [] Active listening [] Non-anxious presence [] Spiritual/emotional support [] Crisis/trauma care [] Spiritual counseling [] Bereavement support [] Provided bereavement packet [] Provided Bible/devotional materials [] Provided toy/stuffed animal, coloring book to patient or family member [] Provided Communion [] Anointing/[facility] [] Salvation [x] Completed spiritual assessment [] Other: Impact on Illness or Injury [] Angry [] Fearful [] Anxious [] Often cries [] Exhaustion [] Unable to work [] Unable to attend jewish [] Unable to walk/stand [] Unable to read [] Unable to drive [] Unable to eat/drink [] Unable to sleep [] Unable to be with family [] Patient intubated [] Other: Summary Time spent with patient
[2022-10-18 11:07] LABS: Glucose Point of Care 119 mg/dL (70-110)
--- NOTE | 2022-10-18 12:02 | PM.PN ---
Subjective Subjective: Cony is much more alert this morning. Nurse reports she is going to be dialyzed tomorrow. She denies any pain, just laying. Medications: Reviewed: Yes Vitals/I&O/Wt Last Vital Signs Temp 97.9 F 10/18/22 08:30 Pulse 73 10/18/22 10:00 Resp 16 10/18/22 10:00 BP 129/70 10/18/22 10:00 Pulse Ox 92 10/18/22 10:00 O2 Del Method 10/18/22 10:00 O2 Flow Rate 3 10/18/22 10:00 10/17/22 10/18/22 10/18/22 22:59 06:59 14:59 Intake Total 280 / 1690.77 290 / 290 Output Total 75 / 75 55 / 130 Balance 205 / 1615.77 -55 / 1560.77 290 / 290 Weight last 48 hrs Weight 47.491 kg Weight 45.359 kg Physical Exam Narrative: General exam alert, oriented, slightly confused Neck is supple no lymphadenopathy thyromegaly Cardiovascular heart sounds distant. Regular rate and rhythm. 2/6 systolic murmur Lungs diminished breath sounds bilaterally. Relatively clear. Dialysis catheter noted. Abdomen soft, positive bowel sounds. No obvious organomegaly exam is deferred Back no decubiti Extremities no cyanosis clubbing. 1+ edema is noted bilaterally. No skin breakdown. Skin no rash or breakdown Neuro no obvious focal deficits. Urinary Catheter Management: Dickson: Cath Placed During This Visit: yes Reason for Continuing Indwelling Catheter: Acute Urinary Retention or Obstruction Urinary Catheter Date of Insertion: 10/18/22 Urinary Catheter Time of Insertion: 00:21 Data 10/18/22 04:14 10/18/22 04:14 Micro: Microbiology 10/17/22 07:35 Urine Culture - Preliminary Urine Catheterized 10/17/22 07:45 Blood Culture - Preliminary Blood NEGATIVE TO DATE 10/17/22 07:43 Blood Culture - Preliminary Blood NEGATIVE TO DATE A&P Assessment and plan (1) Acute metabolic encephalopathy: Patient presents with acute metabolic encephalopathy. Most likely this is secondary to her UTI CT head shows no acute findings Hyperglycemia, could cause similar symptoms. Hold lorazepam currently, narcotics secondary to lethargy She has improved significantly (2) UTI (urinary tract infection): Too numerous to count white blood cells on urinalysis Await urine and blood cultures Continue Rocephin started in the emergency department Note that she got 1 dose of vancomycin per nephrology. CT abdomen and pelvis demonstrates no evidence of obstruction (3) Uncontrolled diabetes mellitus: Sliding scale insulin Consistent carb diet, when initiating diet Initiate glargine insulin 10 units every 24 hours (4) ESRD (end stage renal disease) on dialysis: Nephrology consultation appreciated Likely dialysis will be provided tomorrow (5) Hyperkalemia: Mild, should resolve with dialysis (6) Pelvic fracture: Patient reports fall 2 days ago. She sustained pelvic fracture, and an acetabular fracture. Orthopedic consultation appreciated Therapy consultations. She may require nursing facility placement. Will discuss with family. (7) Troponin level elevated: Elevated secondary to renal disease. Myocardial infarction not suspected (8) Elevated lipase: No evidence for pancreatitis. Elevated secondary to end-stage renal disease Plan Multiple other medical Gallegos as outlined in past medical history Full code currently Heparin for DVT prophylaxis May transfer out of ICU Attestations Medical Necessity Statement*: Needs continued hospital stay, secondary to pelvic fracture, metabolic encephalopathy, IV antibiotics May transfer out of ICU Coding Level of Care Code Acute Mold Stamper for [facility] Fwd Diagnoses Acute metabolic encephalopathy G93.41 UTI (urinary tract infection) N39.0 Uncontrolled diabetes mellitus E11.65 ESRD (end stage renal disease) on dialysis N18.6; Z99.2 Hyperkalemia E87.5 Pelvic fracture S32.9XXA Troponin level elevated R77.8 Elevated lipase R74.8
[2022-10-18] MEDS: morphine 4 mg/mL SDV 1 mL 2 MG IVP (13:05)
[2022-10-18 17:25] LABS: Glucose Point of Care 281 mg/dL (70-110)
[2022-10-18] MEDS: atorvastatin 40 mg Tablet PO (17:46)
[2022-10-18] MEDS: insulin lispro 100 unit/1 mL SUBCUT ×2 (17:46→21:08)
[2022-10-18 19:13] LABS: Glucose Point of Care 336 mg/dL (70-110)
[2022-10-18] MEDS: insulin glargine 100 units/1 mL 10 UNIT SUBCUT (21:06)
[2022-10-19] VITALS (7 sets, daily range): BP systolic 123–156; BP diastolic 67–79; PULSE 56–78; RESP 16–18; TEMP 36.5–36.8; O2SAT 90–95; BMI 19.1
[2022-10-19 00:10] LABS: Glucose Point of Care 106 mg/dL (70-110)
[2022-10-19] MEDS: famotidine 20 mg/2 mL INJ IVP (03:41)
[2022-10-19] MEDS: heparin 5,000 unit/mL INJ 1 mL 5000 UNIT SUBCUT (03:42)
[2022-10-19 05:49] LABS: Basophils % 0.4 %; Eosinophils # 0.1 10^3/uL (0.0-0.8); Eosinophils % 0.9 %; Hemoglobin 10.7 g/dL (11.5-15.3); Lymphocytes # 1.4 10^3/uL (0.8-4.8); Lymphocytes % 15.9 %; Mean Corpuscular HGB Conc 31.5 g/dL (30.0-36.0); Mean Corpuscular Hemoglobin 30.2 pg (28.0-34.0); Monocytes # 0.7 10^3/uL (0.2-0.9); Monocytes % 7.6 %; Neutrophils # 6.76 10^3/uL (1.8-7.7); Neutrophils % 74.8 %; Nucleated Red Blood Cells % 0 %; Platelet Count 374 10^3/cmm (130-400); Red Blood Count 3.54 10^6/uL (4.1-5.3); Red Cell Distribution Width 15.8 % (12.1-15.1); White Blood Count 9.1 10^3/uL (4.0-10.0)
[2022-10-19 06:16] LABS: Alanine Aminotransferase 23 U/L (0-33); Albumin Level 2.7 g/dL (3.5-5.2); Alkaline Phosphatase 335 U/L (35-105); Anion Gap 18.3 (5-19); Aspartate Amino Transferase 22 U/L (0-32); Blood Urea Nitrogen 40 mg/dL (8-23); Calcium 8.3 mg/dL (8.5-10.5); Carbon Dioxide 24 mmol/L (22-29); Chloride 96 mmol/L (98-107); Globulin 3.2 g/dL (1.3-4.6); Glomerular Filtration Rate 14.9 mL/min (90-130); Magnesium 2.2 mg/dL (1.7-2.3); Osmolality Calculated 284 mOsm/kg (285-295); Phosphorus 3.6 mg/dL (2.5-4.5); Potassium 4.3 mmol/L (3.5-5.1); Sodium 134 mmol/L (136-145); Total Bilirubin 0.2 mg/dL (0.15-1.2); Total Protein 5.9 g/dL (6.6-8.7)
[2022-10-19] MEDS: aspirin 81 mg EC Tablet PO (06:23)
[2022-10-19] MEDS: clopidogrel 75 mg Tablet PO (06:23)
[2022-10-19 06:38] LABS: Glucose 32 mg/dL (65-115)
[2022-10-19 07:14] LABS: Glucose Point of Care 39 mg/dL (70-110)
[2022-10-19 07:14] LABS: Glucose Point of Care 44 mg/dL (70-110)
[2022-10-19 07:14] LABS: Glucose Point of Care 51 mg/dL (70-110)
[2022-10-19 07:14] LABS: Glucose Point of Care 67 mg/dL (70-110)
[2022-10-19 07:14] LABS: Glucose Point of Care 66 mg/dL (70-110)
[2022-10-19 07:34] LABS: Glucose Point of Care 67 mg/dL (70-110)
--- NOTE | 2022-10-19 08:01 | P.PN_ITS ---
Subjective Subjective: having episodes of hypoglycemia. MS is improving. no stokes or cp. Medications: Reviewed: Yes Medication Review Details: Current Medications Acetaminophen (Acetaminophen 325 Mg Tablet) 650 mg PO Q6H PRN PRN Reason: MILD PAIN Aspirin (Aspirin 81 Mg Ec Tablet) 81 mg PO QAM [facility] Last Admin: 10/19/22 06:23 Dose: 81 mg Atorvastatin Calcium (Atorvastatin 40 Mg Tablet) 40 mg PO QPM [facility] Last Admin: 10/18/22 17:46 Dose: 40 mg Carvedilol (Carvedilol 12.5 Mg Tablet) 12.5 mg PO BID [facility] Last Admin: 10/18/22 17:46 Dose: 12.5 mg Clopidogrel Bisulfate (Clopidogrel 75 Mg Tablet) 75 mg PO QAM [facility] Last Admin: 10/19/22 06:23 Dose: 75 mg Dextrose (Dextrose 50% Syringe 50 Ml) 25 ml IVP ONCE PRN; Protocol PRN Reason: hypoglycemia protocol Dextrose (Dextrose 50% Syringe 50 Ml) 50 ml IVP PRN PRN; Protocol PRN Reason: hypoglycemia protocol Famotidine (Famotidine 20 Mg/2 Ml Inj) 20 mg IVP Q12H [facility] Last Admin: 10/19/22 03:41 Dose: 20 mg Glucagon (Glucagon 1 Mg/Ml Inj 1 Ml) 1 mg IM ONCE PRN; Protocol PRN Reason: Adult Acute Hypoglycemia Prot. Haloperidol Lactate (Haloperidol Inj 5 Mg/Ml Inj 1 Ml) 1 mg IM Q4H PRN PRN Reason: AGITATION Heparin Sodium (Porcine) (Heparin 5,000 Unit/Ml Inj 1 Ml) 5,000 unit SUBCUT Q12H [facility] Last Admin: 10/19/22 03:42 Dose: 5,000 unit Sodium Chloride (Sodium Chloride 0.9%) 1,000 mls @ 0 mls/hr IV .Q0M PRN PRN Reason: hypotension or symptomatic Ceftriaxone Sodium 1,000 mg/ (Sodium Chloride) 50 mls @ 100 mls/hr IV Q24H [facility]; Protocol Last Infusion: 10/18/22 10:10 Dose: Infused Dextrose (D5w) 500 mls @ 100 mls/hr IV ONCE PRN; Protocol PRN Reason: Adult Acute Hypoglycemia Prot Albumin Human (Albumin) 12.5 gm in 50 mls @ 60 mls/hr IV PRN PRN PRN Reason: Hypotension and/or symptomatic Insulin Human Lispro (Insulin Lispro 100 Unit/1 Ml) 0 unit SUBCUT WM&BEDTIME ALYSSA; Protocol Last Admin: 10/19/22 07:55 Dose: Not Given Levothyroxine Sodium (Levothyroxine 75 Mcg Tablet) 37.5 mcg PO DAILY [facility] Last Admin: 10/18/22 08:36 Dose: 37.5 mcg Ondansetron HCl (Ondansetron 2 Mg/Ml Sdv 2 Ml) 4 mg IVP Q6H PRN PRN Reason: NAUSEA AND VOMITING Vitals/I&O/Wt Last Vital Signs Temp 98.1 F 10/19/22 03:18 Pulse 78 10/19/22 03:18 Resp 17 10/19/22 03:18 BP 148/79 10/19/22 03:18 Pulse Ox 90 10/19/22 03:18 O2 Del Method 10/19/22 03:18 O2 Flow Rate 4.5 10/19/22 03:18 10/18/22 10/19/22 10/19/22 22:59 06:59 14:59 Intake Total 440 / 1910.833 500 / 2410.833 Output Total 50 / 50 Balance 390 / 1860.833 500 / 2360.833 Weight last 48 hrs Weight 47.491 kg Weight 47.491 kg Physical Exam Narrative: awake and alert. interactive. VSS heent- nc/at, eomi, anicteric neck supple lungs dull bases heart reg abd soft, nt, ND + bs ext no edema neuro- improving MS, moves all extremities, + talking Urinary Catheter Management: Dickson: Cath Placed During This Visit: yes Reason for Continuing Indwelling Catheter: Accurate Measurement of Urinary Output in Critically Ill Patients Urinary Catheter Date of Insertion: 10/18/22 Urinary Catheter Time of Insertion: 00:21 Data 10/19/22 04:22 10/19/22 04:22 Micro: Microbiology 10/17/22 07:35 Urine Culture - Preliminary Urine Catheterized 10/17/22 07:45 Blood Culture - Preliminary Blood NEGATIVE TO DATE 10/17/22 07:43 Blood Culture - Preliminary Blood NEGATIVE TO DATE A&P Assessment and plan (1) ESRD (end stage renal disease) on dialysis: 66 yr old female: 1. Pelvic fractures -per ortho 2. ESRD- repeat HD tomorrow, for 3.5 hrs, 2L fluid removal 2k bath 3. AMS - likely from hypoglycemia ur cx is NGTD 4. loculated pleural effusions 5. hypoglycemia/ DM- dec insulin 6. mild hyponatremia - likely from ESRD and pleural effusions 7 anemia- hgb improving. high ferritin > 2000- no iv iron seen and examine dw/ rN- telehealth visit time spent 25 minutes Plan see above Attestations Medical Necessity Statement*: hypoglycemia, Q infection, ESRD, AMS Time Spent in Patient Care: 16 - 35 minutes (>than 50% of time spent in counselling and/or direct pt care on unit) . Coding Level of Care Code Acute Latent Fingerprint Examiner for Chg Fwd Diagnoses ESRD (end stage renal disease) on dialysis N18.6; Z99.2
[2022-10-19] MEDS: levothyroxine 75 mcg Tablet 37.5 MCG PO (08:03)
[2022-10-19] MEDS: carvedilol 12.5 mg Tablet PO (08:03)
--- NOTE | 2022-10-19 08:15 | PC.NURSE ---
Patient to dialysis at 0810
[2022-10-19 11:11] LABS: Glucose Point of Care 130 mg/dL (70-110)
--- NOTE | 2022-10-19 12:16 | PM.DCS ---
Discharge Providers Date of Admission: 10/17/22 16:22 Date of Discharge: October 19, 2022 Attending Provider at Admission: Cole Chavis MD Attending Provider at Discharge: Cole Chavis MD Primary Care Provider: Zenon De Los Santos MD Diagnoses at Discharge Discharge Diagnosis (1) ESRD (end stage renal disease) on dialysis: Status: Acute Reason for Visit Reason for Visit: elevated blood sugar Hospital Course Hospital Course Cony is a 66-year-old white female who presented to the hospital with confusion. She had missed a dialysis treatment, the previous week. There was concern for UTI. CT head showed no acute changes. She had had a fall around October 12, and an ER visit on the with no apparent injury. She had been prescribed some pain medicine following her fall. She also had Ativan that she takes occasionally for anxiety. On readmission on October 17 it was apparent she had acute metabolic encephalopathy consistent with delirium, UTI, and CT demonstrated a pelvic fracture with an acetabular fracture. She was placed in the hospital, and nephrology consulted for dialysis. She was placed on broad-spectrum antibiotics initially consisting of vancomycin and Rocephin, later clarified to Rocephin alone. Orthopedics was consulted and recommended nonoperative management, touch toe weightbearing regarding her pelvic fracture and acetabular fracture. Throughout her hospital course she improved significantly and I believe she was back to baseline at end of hospital stay. I discussed findings with her daughter in detail, and she was given an opportunity to ask questions and they both agreed on plan to go home with home health and continue to work on rehabilitation there. She did have a hypoglycemic episode night prior to discharge. Her Lantus had already been reduced significantly. I have visited with her daughter regarding reduction of her home Lantus dose, close follow-up of sugar, plan for hypoglycemia which she acknowledged. She will finish up a short course of antibiotics for UTI. Other studies done in the hospital included a CT chest with demonstrated bilateral loculated pleural effusions left greater than right which were chronic. An abdominal pelvis CT that demonstrated the pelvic and acetabular fracture. Physical Exam Narrative: General exam no distress Neck is supple Cardiovascular regular rate and rhythm, dialysis catheter right chest Lungs clear Abdomen is soft, positive bowel sounds Extremities no cyanosis clubbing or edema Neuro no focal deficits Urinary Catheter Management: Dickson: Cath Placed During This Visit: yes Reason for Continuing Indwelling Catheter: Accurate Measurement of Urinary Output in Critically Ill Patients Urinary Catheter Date of Insertion: 10/18/22 Urinary Catheter Time of Insertion: 00:21 Discharge Data Studies Completed and Pending Completed Studies During Hospitalization Category Date Time Status CT chest w con* [id number] Stat Cat Scan 10/17/22 09:[address] head wo con* [id number] Stat Cat Scan 10/17/22 06:[address] kidney stone [id number] Stat Cat Scan 10/17/22 08:08 Completed XR chest 1V portable [id number] Stat Exams 10/17/22 06:53 Completed Pending at discharge Category Date Time Status Blood Culture Stat Lab 10/17/22 07:43 Results Complete Blood Count w/Auto AM LABS Lab 10/20/22 04:00 Ordered Complete Blood Count w/Auto AM LABS Lab 10/20/22 04:00 Ordered Complete Blood Count w/Auto AM LABS Lab 10/21/22 04:00 Ordered Comprehensive Metabolic Panel AM LABS Lab 10/20/22 04:00 Ordered Comprehensive Metabolic Panel AM LABS Lab 10/20/22 04:00 Ordered Comprehensive Metabolic Panel AM LABS Lab 10/21/22 04:00 Ordered Magnesium AM LABS Lab 10/20/22 04:00 Ordered Magnesium AM LABS Lab 10/20/22 04:00 Ordered Magnesium AM LABS Lab 10/21/22 04:00 Ordered Phosphorus AM LABS Lab 10/20/22 04:00 Ordered Phosphorus AM LABS Lab 10/20/22 04:00 Ordered Phosphorus AM LABS Lab 10/21/22 04:00 Ordered Urine Culture Stat Lab 10/17/22 07:35 Results Radiology Impressions Chest X-Ray 10/17/22 06:53 IMPRESSION: 1. Bilateral pleural effusions, larger on the left 2. Bilateral lower lobe atelectasis and consolidation, more pronounced on the left. Infection or edema is possible. This appears similar to the recent exam. Head CT 10/17/22 06:53 IMPRESSION: 1. No acute intracranial abnormality. 2. Chronic findings as discussed above. Abdomen/Pelvis CT 10/17/22 08:08 IMPRESSION: Images degraded by motion. 1. LEFT inferior pubic ramus and LEFT pubic symphysis fractures have an acute appearance with surrounding edema and a small amount of associated air. 2. Slightly comminuted anterior LEFT acetabular fracture. 3. No visualized LEFT femoral fractures. 4. No hydronephrosis in either kidney. 5. Loculated pleural fluid in the lung bases LEFT greater than RIGHT with compressive atelectasis. Interstitial edema in the lung bases. 6. Cardiomegaly. 7. Fluid distended gallbladder with cholelithiasis. 8. Diffuse bladder wall thickening. Recommend correlation for cystitis. 9. Bulky Fibroid uterus Notified José Miguel Gonsalez DO at 10/17/2022 9:[address] 10/17/22 09:03 IMPRESSION: 1. Cardiomegaly. 2. Bilateral loculated pleural effusions LEFT greater than RIGHT with compressive atelectasis. 3. Interstitial edema in the lung bases. Prior sternotomy with CABG. Laboratory Results WBC 9.1 10^3/uL (4.0-10.0) 10/19/22 04:22 RBC 3.54 10^6/uL (4.1-5.3) L 10/19/22 04:22 Hgb 10.7 g/dL (11.5-15.3) L 10/19/22 04:22 Hct 34.0 % (37.0-47.0) L 10/19/22 04:22 MCV 96.0 fl (81-99) 10/19/22 04:22 MCH 30.2 pg (28.0-34.0) 10/19/22 04:22 MCHC 31.5 g/dL (30.0-36.0) 10/19/22 04:22 RDW 15.8 % (12.1-15.1) H 10/19/22 04:22 Plt Count 374 10^3/cmm (130-400) 10/19/22 04:22 MPV 11.0 fL (7.4-10.4) H 10/19/22 04:22 Neut % (Auto) 74.8 % 10/19/22 04:22 Lymph % (Auto) 15.9 % 10/19/22 04:22 Martin % (Auto) 7.6 % 10/19/22 04:22 Eos % (Auto) 0.9 % 10/19/22 04:22 Baso % (Auto) 0.4 % 10/19/22 04:22 Neut # (Auto) 6.76 10^3/uL (1.8-7.7) 10/19/22 04:22 Lymph # (Auto) 1.4 10^3/uL (0.8-4.8) 10/19/22 04:22 Martin # (Auto) 0.7 10^3/uL (0.2-0.9) 10/19/22 04:22 Eos # (Auto) 0.1 10^3/uL (0.0-0.8) 10/19/22 04:22 Baso # (Auto) 0.0 10^3/uL (0.0-0.1) 10/19/22 04:22 Nucleated RBC % (auto) 0 % 10/19/22 04:22 Nucleated RBCs # 0.0 /100WBC 10/19/22 04:22 Specimen Type Arterial 10/17/22 07:13 Sample Site Radial, right 10/17/22 07:13 ABG pH 7.38 (7.35-7.45) 10/17/22 07:13 ABG pCO2 41.2 mmHg (35-45) 10/17/22 07:13 ABG pO2 103.0 mmHg (80.0-100.0) H 10/17/22 07:13 ABG HCO3 24.1 mmol/L (22-26) 10/17/22 07:13 ABG O2 Saturation 98.7 10/17/22 07:13 ABG Base Excess -1.1 mmol/L (-2.0-2.0) 10/17/22 07:13 Tj Test Pos 10/17/22 07:13 A-a O2 Gradient 5.8 mmHg (5-10) 10/17/22 07:13 Hematocrit 28.9 % (37-47) L 10/17/22 07:13 Hgb O2 Saturation 97.1 % (95-100) 10/17/22 07:13 Carboxyhemoglobin 1.3 %THgb (0.4-20.1) 10/17/22 07:13 Methemoglobin 0.3 % (0.4-1.5) L 10/17/22 07:13 Total Hemoglobin 9.4 g/dL (12-16) L 10/17/22 07:13 Sodium 132.0 mmol/L (131-143) 10/17/22 07:13 Potassium 5.2 mmol/L (3.5-5.0) H 10/17/22 07:13 Glucose 373.0 mg/dL (70-115) H 10/17/22 07:13 Ionized Calcium 1.2 mmol/L (1.1-1.4) 10/17/22 07:13 O2 Delivery Device Nc 10/17/22 07:13 O2 Liters/Min 2.0 % 10/17/22 07:13 FiO2 28.0 % 10/17/22 07:13 Cost Estimating Engineer ID [email or web address] 10/17/22 07:13 Sodium 134 mmol/L (136-145) L 10/19/22 04:22 Potassium 4.3 mmol/L (3.5-5.1) 10/19/22 04:22 Chloride 96 mmol/L (98-107) L 10/19/22 04:22 Carbon Dioxide 24 mmol/L (22-29) 10/19/22 04:22 Anion Gap 18.3 (5-19) 10/19/22 04:22 BUN 40 mg/dL (8-23) H 10/19/22 04:22 Creatinine 3.1 mg/dL (0.5-0.9) H 10/19/22 04:22 GFR Calculation 14.9 mL/min (90-130) L 10/19/22 04:22 Glucose 32 mg/dL (65-115) L* 10/19/22 04:22 POC Glucose 130 mg/dL (70-110) H 10/19/22 11:05 Calculated Osmolality 284 mOsm/kg (285-295) L 10/19/22 04:22 Lactic Acid 6.2 mmol/L (0.5-2.2) H* 10/17/22 06:43 Lactic Acid (Sepsis) 3.3 mmol/L (0.5-2.2) H 10/17/22 10:17 Uric Acid 5.4 mg/dL (2.4-5.7) 10/17/22 06:43 Calcium 8.3 mg/dL (8.5-10.5) L 10/19/22 04:22 Phosphorus 3.6 mg/dL (2.5-4.5) 10/19/22 04:22 Magnesium 2.2 mg/dL (1.7-2.3) 10/19/22 04:22 Iron 69 ug/dL (37-145) 10/18/22 04:14 TIBC 133 mcg/dl 10/18/22 04:14 % Saturation 51.8 % (20-50) H 10/18/22 04:14 Unsat Iron Binding 64 ug/dL (112-347) L 10/18/22 04:14 Ferritin 2539 ng/mL (15-150) H 10/18/22 04:14 Total Bilirubin 0.2 mg/dL (0.15-1.2) 10/19/22 04:22 AST 22 U/L (0-32) 10/19/22 04:22 ALT 23 U/L (0-33) 10/19/22 04:22 Alkaline Phosphatase 335 U/L (35-105) H 10/19/22 04:22 Troponin T Baseline 121 ng/L (0-10) H* 10/17/22 06:43 Troponin T 120 Minute 120.3 ng/L (0-10) H 10/17/22 09:00 Delta Troponin T -0.7 ABS# (0-10) L 10/17/22 09:00 Troponin T Hi Sens 6Hr 106.8 ng/L (0-10) H 10/17/22 12:45 Troponin T Hi Sens 6Hr Delta -14.2 ng/L (0-12) L 10/17/22 12:45 Total Protein 5.9 g/dL (6.6-8.7) L 10/19/22 04:22 Albumin 2.7 g/dL (3.5-5.2) L 10/19/22 04:22 Globulin 3.2 g/dL (1.3-4.6) 10/19/22 04:22 Lipase 79 U/L (13-60) H 10/17/22 06:43 Urine Color Yellow (Yellow) 10/17/22 07:35 Urine Appearance Cloudy (CLEAR) A 10/17/22 07:35 Urine pH 8 (5-7) H 10/17/22 07:35 Ur Specific [place] 1.005 (1.005-1.030) 10/17/22 07:35 Urine Protein 2+ (Negative) H 10/17/22 07:35 Urine Glucose (UA) 4+ (Normal) H 10/17/22 07:35 Urine Ketones 1+ (Negative) H 10/17/22 07:35 Urine Blood Neg (Negative) 10/17/22 07:35 Urine Nitrate Negative (Negative) 10/17/22 07:35 Urine Bilirubin Neg (Negative) 10/17/22 07:35 Prot Sulfosalicylic Acd Positive (Negative) 10/17/22 07:35 Urine Urobilinogen Norm mg/dL (Negative) 10/17/22 07:35 Ur Leukocyte Esterase 2+ (Negative) H 10/17/22 07:35 Urine RBC 0-4 /hpf (0-2) H 10/17/22 07:35 Urine WBC Too numerous to cnt /hpf (0-5) H 10/17/22 07:35 Ur Squamous Epith Cells 5-10 /hpf (0-5) H 10/17/22 07:35 Ur Transition Epith Cell 0-4 /hpf 10/17/22 07:35 Amorphous Sediment Not Reportable 10/17/22 07:35 Urine Bacteria 2+ /hpf (NONE) H 10/17/22 07:35 Serum Ketones Negative (Negative) 10/17/22 06:43 Hep Bs Antigen Non-reactive (Nonreactive) 10/17/22 06:43 Hep Bs Antibody 39.6 (11.5-1000) 10/17/22 06:43 Hepatitis C Antibody Non-reactive (Nonreactive) 10/17/22 06:43 Vitals Last Vital Signs Temp 98.2 F 10/19/22 08:36 Pulse 73 10/19/22 08:36 Resp 18 10/19/22 08:36 BP 141/75 10/19/22 08:36 Pulse Ox 94 10/19/22 08:29 O2 Del Method 10/19/22 08:29 O2 Flow Rate 3 10/19/22 08:29 Discharge Plan Discharge Patient Disposition: Home Health Service Condition: Stable Prescriptions: New docusate sodium [Colace] 100 mg capsule 100 mg PO DAILY PRN (Reason: constipation) 10 Days Qty: 10 0RF aspirin 325 mg capsule 325 mg PO BID 35 Days Qty: 70 0RF calcium carbonate-vitamin D3 600 mg-10 mcg (400 unit) Tablet 1 ea PO BID 30 Days Qty: 60 0RF cefdinir 300 mg capsule 300 mg PO Q48H 8 Days Qty: 4 0RF Continued pantoprazole 40 mg Tablet,Delayed Release (Dr/Ec) 40 mg PO QAM insulin aspart U-100 [Novolog Flexpen U-100 Insulin] 100 unit/mL (3 mL) Insulin Pen See Rx Instructions .ROUTE .COMPLEX Rx Instructions: per sliding scale three to five times a day venlafaxine 150 mg capsule,extended release 24hr 150 mg PO QAM torsemide 100 mg tablet 100 mg PO QAM sevelamer carbonate 800 mg tablet 1,600 mg PO QAM metolazone 5 mg tablet 5 mg PO DAILY hydrocodone-acetaminophen 5-325 mg tablet 1 tab PO Q6H PRN (Reason: pain) 7 Days Qty: 28 0RF atorvastatin 40 mg Tablet 40 mg PO QPM carvedilol 12.5 mg Tablet 12.5 mg PO BID Rx Instructions: must administer with a meal/food clopidogrel 75 mg Tablet 75 mg PO QAM levothyroxine 75 mcg Tablet 37.5 mcg PO DAILY amlodipine 10 mg Tablet 10 mg PO BEDTIME RenaPlex-D 800 mcg-12.5 mg -2,000 unit Tablet 1 tab PO QAM Changed Basaglar KwikPen U-100 Insulin 100 unit/mL (3 mL) insulin pen 10 unit SUBCUT BEDTIME Qty: 15 0RF Discontinued lorazepam 1 mg tablet 1 mg PO TID aspirin 81 mg Tablet,Delayed Release (Dr/Ec) 81 mg PO QAM Discharge Orders: Discharge Order (Routine); Ordered 10/19/22 Ordered By: Cole Chavis Referrals: Zenon De Los Santos MD [Primary Care Provider] - 4-7 days Alec Vilchis DO [Physician] - 2 weeks Discharge Activity: Limit activity as instructed Patient Instructions: Opioid Safety Activity Restrictions/Additional Instructions: Orthopedic discharge instructions: Patient may be toe-touch weightbearing to the left lower extremity PT/OT Increased aspirin to 325 mg twice daily for DVT prophylaxis and may resume home Plavix Take pain medication as prescribed Supplement with Citracal vitamin D Follow-up with Dr. Vilchis in the office in 2 weeks Contact the office for any questions or concerns Keep regular dialysis follow-up Sunday Follow-up with your primary care provider 3 to 5 days Reduce your Lantus to 10 units at night, close follow-up of blood sugar. Plan for hypoglycemia was discussed. 4 more doses of cefdinir for UTI, every 48 hours take 1 pill. Patient's Health Concerns: Confusion/delirium, fall with pelvic fracture Assessment: Urinary tract infection Plan of Treatment: Finish up antibiotics Discharge Attestations Time Spent in Discharge Care*: greater than 30 min Quality Metrics Clinical Quality Measures [ No reported AMI, CVA or VTE this stay] Coding Level of Care Code Acute Chg FW DC note Diagnoses ESRD (end stage renal disease) on dialysis N18.6; Z99.2
[2022-10-19] MEDS: cefTRIAXone 1,000 MG in sodium chloride 0.9% (plus) 50 ML 100 MG IV (13:20)
--- NOTE | 2022-10-19 13:30 | PC.NURSE ---
Patient back from dialysis approximately [address] Chavis of Blood sugar 130 and running antibiotic before discharge. Dr. Chavis stated to run and patient could be discharged.
--- NOTE | 2022-10-19 15:18 | PC.NURSE ---
Discussed discharge, new medications, discontinued medications and follow up appointents with patient and daughter. Verbalized understanding. Patient had a hard time understanding toe touch weight bearing.
== END 2022-10-19 15:22 | disposition home health service (06) | DRG 689 ==
LOC: ER 08:14 → ICU 14:58 → MEDSURG 10-18 19:57
PROVIDERS: Internal Medicine Nephrology; Admitting Provider Internal Medicine; Emergency Provider Family Medicine; PCP Internal Medicine; Visit Provider Internal Medicine
DX: N39.0 Urinary tract infection, site not specified (principal); G93.41 Metabolic encephalopathy; S32.402A Unspecified fracture of left acetabulum, initial encounter for closed fracture; N18.6 End stage renal disease; S32.592A Other specified fracture of left pubis, initial encounter for closed fracture; I12.0 Hypertensive chronic kidney disease with stage 5 chronic kidney disease or end stage renal disease; J90 Pleural effusion, not elsewhere classified; F05 Delirium due to known physiological condition; E87.79 Other fluid overload; E11.22 Type 2 diabetes mellitus with diabetic chronic kidney disease; E11.65 Type 2 diabetes mellitus with hyperglycemia; E11.649 Type 2 diabetes mellitus with hypoglycemia without coma; E87.5 Hyperkalemia; D63.1 Anemia in chronic kidney disease; W19.XXXA Unspecified fall, initial encounter; R77.8 Other specified abnormalities of plasma proteins; Z99.2 Dependence on renal dialysis; Z91.15 Patient's noncompliance with renal dialysis; Z79.4 Long term (current) use of insulin; Z79.02 Long term (current) use of antithrombotics/antiplatelets
CPT/HCPCS: 36415; 36416; 36600; 51702; 70450; 71045; 71260; 73502; 73552; 74176; 80051; 80053; 81001; 82009; 82330; 82728; 82805; 82962; 83540; 83550; 83605; 83690; 83735; 84100; 84484; 84550; 85025; 86706; 86803; 87040; 87086; 87340; 90935; 93005; 96365; 96367; 96372; 96375; 97161; 97530; 99284; 99285; J0696; J1644; J1815; J2270; J3370; J3490; J7030; J7050; Q3014; Q9967

== ENCOUNTER 2022-11-15 12:41 | Inpatient (IN) | payer MEDICARE, SELFPAY ==
[2022-11-15] VITALS (16 sets, daily range): BP systolic 135–154; BP diastolic 75–87; PULSE 91–101; RESP 10–22; TEMP 36.6–37.2; O2SAT 90–97; BMI 20.1
--- NOTE | 2022-11-15 12:43 | W.ED.SOB ---
HPI - SOB/Dyspnea General: Chief Complaint: Shortness of Breath/Dyspnea Stated Complaint: SOB Time Seen by Provider: 11/15/22 12:43 History of Present Illness: HPI Narrative: Ms. Temple is a 67-year-old lady with complex past medical history including CAD, end-stage renal disease on hemodialysis through tunneled catheter Sunday, CHF, diabetes, chronic respiratory failure with hypoxia on baseline 3 L presented to the emergency department for generalized illness. She reports feeling generally unwell including some shortness of breath for 2 to 3 days. Onset was gradual however course has worsened. She has noticed dry cough with intermittent fevers and was hypoxic on baseline oxygen at 84%. Density symptoms as moderate to severe. She reports dialysis yesterday which was unremarkable. No other specific changes in health, exacerbating, or alleviating factors identified. Onset (ago): day(s) Timing: progressively worsening Severity: moderate Exacerbating factors: nothing Relieving factors: nothing Known history of: congestive heart failure, diabetes and other Associated symptoms: Reports other Review of Systems General: Reports: 10 or more systems reviewed and unremarkable except in HPI and below PFSH ED PFSH: Medical History CAD in [place] artery Closed fracture of pubic ramus Depression ESRD on dialysis Fall Fracture acetabulum-closed Gastroparesis GERD (gastroesophageal reflux disease) Hyperlipidemia Hypertension Hypothyroidism Uncontrolled diabetes mellitus Social History Smoking and tobacco status: never smoked Alcohol intake: never Physical Exam Const: COMMON NORMALS: alert GENERAL APPEARANCE: cooperative and ill appearing (Somewhat) HENMT: COMMON NORMALS: normocephalic and atraumatic HEAD & SCALP: normocephalic and atraumatic THROAT: posterior oropharynx normal Eye: COMMON NORMALS: conjunctivae normal CONJUNCTIVA: Yes conjunctivae normal SCLERA: sclerae normal Neck/C-Spine: COMMON NORMALS: supple GENERAL: Yes trachea midline Resp: EFFORT & INSPECTION: Yes able to speak in complete sentences AUSCULTATION: diminished lung sounds Cardio: COMMON NORMALS: regular rate and regular rhythm RATE: regular rate RHYTHM: regular rhythm GI: COMMON NORMALS: Soft to palpation PALPATION: Yes Soft to palpation and No Tenderness to palpation present (GI) Extremity: GENERAL: Yes normal exam except as noted and No edema Neuro: COMMON NORMALS: moves all extremities SENSORIUM/ORIENTATION: Yes alert and No Orientation impaired Psych: COMMON NORMALS: mental status grossly normal and Normal thought process present THOUGHT PROCESS: Normal thought process present Course Vital Signs: Vital signs: Vital Signs Temperature 97.8 F 11/18/22 12:00 Pulse Rate 74 11/18/22 15:46 Respiratory Rate 15 11/18/22 15:46 Blood Pressure 147/78 11/18/22 12:00 Pulse Oximetry 98 11/18/22 15:46 Oxygen Delivery Me thod 11/18/22 12:45 Oxygen Flow Rate 3 11/18/22 12:45 MDM - SOB/Dyspnea Medical Decision Making 67-year-old lady presenting with shortness of breath and generalized unwell feeling. Her oxygen requirement is greater than baseline. Exam as above. EKG notable for sinus rhythm with first-degree AV block, left axis deviation, nonspecific ST segment abnormalities, no STEMI. Labs with similar hematologic findings with no leukocytosis, macrocytic anemia, mild thrombocytosis. Metabolic panel with hyperkalemia, mild transaminitis, positive range delta troponin likely secondary to volume overload given elevated BNP Chest x-ray with increased effusions. Given complex history and additional findings CT imaging is appropriate. No PE, multiple incidental findings as discussed with patient. Most likely etiology of symptoms include volume overload, end-stage renal disease needing dialysis, acute on chronic respiratory failure with hypoxia. Patient treated with albuterol DuoNeb and calcium gluconate. The results of ED evaluation were discussed with the patient including plan for admission due to requirement for level of care not available if discharged to prevent significant worsening/deterioration. Patient agreeable with plan. Discussed with hospitalist service who was agreeable to admit patient. Medical Records I reviewed the patient's medical records. Lab Data I reviewed the patient's lab results. 11/15/22 13:45 11/15/22 13:45 Labs/Radiology: Radiology Impressions Chest X-Ray 11/15/22 12:51 IMPRESSION: 1. Increased loculated right pleural effusion since 10/17/2022. 2. Stable large left pleural effusion. 3. Stable nonspecific bilateral lower lung opacity. Some component of atelectasis is present. Superimposed infection or edema is not excluded. Chest/Abdomen/Pelvis CT 11/15/22 16:14 IMPRESSION: 1. Negative for pulmonary embolus. 2. Large bilateral loculated effusions. 3. Cardiomegaly. 4. Sternotomy wires. 5. Coronary artery atherosclerotic calcifications. 6. Patchy bilateral airspace infiltrates. 7. T12 vertebral body compression deformity without retropulsion of bony fragments. IMPRESSION: 1. Negative for acute inflammatory process in the abdomen or pelvis. 2. Gallbladder sludge. 3. Left kidney cyst, negative for follow up if advised. 4. Right ovary 3.4 cm cyst. 5. Fibroid uterus. 6. Gallbladder sludge. 7. Left kidney cyst, negative for follow up if advised. 8. Right ovary 3.4 cm cyst. 9. Fibroid uterus. 10. Chronic left anterior acetabular and inferior pubic rami as well as left pubic fractures. 11. Bilateral punctate nonobstructing renal calyceal stones. COMMENTS: Consistent with the [employer]'s Incidental Findings Committee white paper (J Am Lalo Radiol 2018): Any incidental renal lesion less than 1 cm or classified as too small to characterize, or any incidental cystic renal lesion characterized as simple-appearing, is likely benign. No follow-up imaging is recommended for these lesions per consensus recommendations based on imaging criteria. Gallbladder Ultrasound 11/15/22 17:09 IMPRESSION: 1. Gallbladder sludge, negative for cholecystitis. 2. Several right kidney cysts measuring up to 10 mm. 3. Several right kidney punctate nonobstructing calyceal stones. 4. Right-sided pleural effusion somewhat visualized. 5. Small amount of ascites seen in the right abdomen. 6. Liver mildly enlarged to 17 cm with mild hepatic steatosis. Laboratory Results WBC 7.7 10^3/uL (4.0-10.0) 11/15/22 13:45 RBC 3.36 10^6/uL (4.1-5.3) L 11/15/22 13:45 Hgb 10.5 g/dL (11.5-15.3) L 11/15/22 13:45 Hct 33.8 % (37.0-47.0) L 11/15/22 13:45 MCV 100.6 fl (81-99) H 11/15/22 13:45 MCH 31.3 pg (28.0-34.0) 11/15/22 13:45 MCHC 31.1 g/dL (30.0-36.0) 11/15/22 13:45 RDW 18.4 % (12.1-15.1) H 11/15/22 13:45 Plt Count 416 10^3/cmm (130-400) H 11/15/22 13:45 MPV 10.2 fL (7.4-10.4) 11/15/22 13:45 Neut % (Auto) 82.2 % 11/15/22 13:45 Lymph % (Auto) 9.5 % 11/15/22 13:45 [place]ombs % (Auto) 6.8 % 11/15/22 13:45 Eos % (Auto) 0.4 % 11/15/22 13:45 Baso % (Auto) 0.7 % 11/15/22 13:45 Neut # (Auto) 6.29 10^3/uL (1.8-7.7) 11/15/22 13:45 Lymph # (Auto) 0.7 10^3/uL (0.8-4.8) L 11/15/22 13:45 [place] # (Auto) 0.5 10^3/uL (0.2-0.9) 11/15/22 13:45 Eos # (Auto) 0.0 10^3/uL (0.0-0.8) 11/15/22 13:45 Baso # (Auto) 0.1 10^3/uL (0.0-0.1) 11/15/22 13:45 Nucleated RBC % (auto) 0 % 11/15/22 13:45 Nucleated RBCs # 0.0 /100WBC 11/15/22 13:45 Specimen Type Arterial 11/15/22 13:20 Sample Site Brachial, right 11/15/22 13:20 ABG pH 7.38 (7.35-7.45) 11/15/22 13:20 ABG pCO2 42.9 mmHg (35-45) 11/15/22 13:20 ABG pO2 60.6 mmHg (80.0-100.0) L 11/15/22 13:20 ABG HCO3 25.2 mmol/L (22-26) 11/15/22 13:20 ABG Base Excess -0.1 mmol/L (-2.0-2.0) 11/15/22 13:20 Tj Test Pos 11/15/22 13:20 Hematocrit 34.3 % (37-47) L 11/15/22 13:20 Hgb O2 Saturation 88.1 % (95-100) L 11/15/22 13:20 Carboxyhemoglobin 2.3 %THgb (0.4-20.1) 11/15/22 13:20 Methemoglobin 0.5 % (0.4-1.5) 11/15/22 13:20 Total Hemoglobin 11.2 g/dL (12-16) L 11/15/22 13:20 O2 Delivery Device Nc 11/15/22 13:20 O2 Liters/Min 4.0 % 11/15/22 13:20 FiO2 36.0 % 11/15/22 13:20 Director Clinical Applications ID glc 11/15/22 13:20 Sodium 132 mmol/L (136-145) L 11/15/22 13:45 Potassium 6.1 mmol/L (3.5-5.1) H 11/15/22 13:45 Chloride 90 mmol/L (98-107) L 11/15/22 13:45 Carbon Dioxide 22 mmol/L (22-29) 11/15/22 13:45 Anion Gap 26.1 (5-19) H 11/15/22 13:45 BUN 58 mg/dL (8-23) H 11/15/22 13:45 Creatinine 4.7 mg/dL (0.5-0.9) H 11/15/22 13:45 GFR Calculation 9.2 mL/min (90-130) L 11/15/22 13:45 Glucose 359 mg/dL (65-115) H 11/15/22 13:45 Calculated Osmolality 305 mOsm/kg (285-295) H 11/15/22 13:45 Lactic Acid 1.5 mmol/L (0.5-2.2) 11/15/22 13:45 Calcium 8.5 mg/dL (8.5-10.5) 11/15/22 13:45 Total Bilirubin 0.5 mg/dL (0.15-1.2) 11/15/22 13:45 AST 124 U/L (0-32) H 11/15/22 13:45 ALT 89 U/L (0-33) H 11/15/22 13:45 Alkaline Phosphatase 797 U/L (35-105) H 11/15/22 13:45 Troponin T Baseline 143 ng/L (0-10) H* 11/15/22 13:45 NT-Pro-B Natriuret Pep > 36328 pg/mL (0-125) H 11/15/22 13:45 Total Protein 6.6 g/dL (6.6-8.7) 11/15/22 13:45 Albumin 3.4 g/dL (3.5-5.2) L 11/15/22 13:45 Globulin 3.2 g/dL (1.3-4.6) 11/15/22 13:45 TSH 8.89 uIU/mL (0.27-4.20) H 11/15/22 13:45 Serum Ketones Negative (Negative) 11/15/22 13:45 Coronavirus 229E (PCR) Not detected (NOT DETECT) 11/15/22 13:20 SARS-CoV-2 (PCR) Not detected (NOT DETECT) 11/15/22 13:20 Discharge Plan Discharge Patient Disposition: Admitted As Inpatient Admit Provider: Geovanni Fleming Clinical Impression: Acute and chronic respiratory failure with hypoxia, End-stage renal disease needing dialysis, Hyperkalemia, Non-ST elevation [place] (NSTEMI) Condition: Stable Discharge Diet: Cardiac and Diabetic Discharge Activity: Resume usual activity and Increase activity as tolerated Coding Level of Care Code ED Tube Puller for Vikas Osorio
--- NOTE | 2022-11-15 12:51 | XRR_ITS ---
PROCEDURE INFORMATION: Exam: XR Chest Exam date and time: 11/15/2022 12:55 PM Age: 67 years old Clinical indication: Shortness of breath; Prior surgery; Surgery type: SOB TECHNIQUE: Imaging protocol: Radiologic exam of the chest. Views: 1 view. COMPARISON: CT chest w con* [id number] 10/17/2022 10:03 AM FINDINGS: Tubes, catheters and devices: Right internal jugular dialysis catheter tip is in the lower right atrium. Lungs: There is opacity in the lower lungs bilaterally, similar to 10/17/2022. Pleural spaces: Large loculated right pleural effusion is increased since 10/17/2022. There is a large dependent left pleural effusion, similar to the 10/17/2022. No pneumothorax. Heart/Mediastinum: Cardiac silhouette is obscured. Bones/joints: Sternal wires are present. There is no displacement to suggest sternal dehiscence. XR/XR chest 1V portable [id number] IMPRESSION: 1. Increased loculated right pleural effusion since 10/17/2022. 2. Stable large left pleural effusion. 3. Stable nonspecific bilateral lower lung opacity. Some component of atelectasis is present. Superimposed infection or edema is not excluded.
--- NOTE | 2022-11-15 13:02 | ECG_ITS ---
[facility] Test Date: 2022-11-15 Pat Name: Cony Temple Department: Room: Gender: Female Insurance Account Assistant: : 1955 Requested By: Micah Connell Order Number: [id number] Doug MD: Krupa Yarbrough M.D. Measurements Intervals [place] Rate: 92 P: 45 [place]: 215 QRS: -15 QRSD: 107 T: 134 QT: 387 QTc: 481 Interpretive Statements SINUS RHYTHM WITH FIRST DEGREE AV BLOCK ST DEVIATION AND MODERATE T-WAVE ABNORMALITY, CONSIDER LATERAL ISCHEMIA [-0.1+ mV T-WAVE IN I/aVL/V5/V6] Compared to ECG 10/17/2022 13:47:22 First degree AV block now present T-wave abnormality still present Possible ischemia still present Electronically Signed On 11-16-2022 0:07:32 SALES SERVICE TECHNICIAN by Krupa Yarbrough M.D. [email or web address]
[2022-11-15] MEDS: albuterol 2.5 mg/3 mL Neb INHALATION (13:13)
[2022-11-15] MEDS: ipratropium 0.5 mg/2.5 mL Neb INHALATION (13:13)
[2022-11-15 13:32] LABS: ABG PCO2 42.9 mmHg (35-45); ABG PH Result 7.38 (7.35-7.45); Arterial Blood Gas Hematocrit 34.3 % (37-47); Base Excess ABG -0.1 mmol/L (-2.0-2.0); Blood Gas Allen Test Pos; Blood Gas Operator Identificat glc; Blood Gas Sample Site Brachial, right; Blood Gas Sample Type Arterial; Carboxyhemoglobin 2.3 %THgb (0.4-20.1); HCO3 ABG 25.2 mmol/L (22-26); HGB O2 Sat 88.1 % (95-100); Methemoglobin 0.5 % (0.4-1.5); Oxygen Device NC; PO2 ABG 60.6 mmHg (80.0-100.0); Total Hemoglobin 11.2 g/dL (12-16)
[2022-11-15 13:57] LABS: Basophils # 0.1 10^3/uL (0.0-0.1); Basophils % 0.7 %; Eosinophils % 0.4 %; Hematocrit 33.8 % (37.0-47.0); Hemoglobin 10.5 g/dL (11.5-15.3); Lymphocytes # 0.7 10^3/uL (0.8-4.8); Lymphocytes % 9.5 %; Mean Corpuscular HGB Conc 31.1 g/dL (30.0-36.0); Mean Corpuscular Hemoglobin 31.3 pg (28.0-34.0); Mean Corpuscular Volume 100.6 fl (81-99); Mean Platelet Volume 10.2 fL (7.4-10.4); Monocytes # 0.5 10^3/uL (0.2-0.9); Monocytes % 6.8 %; Neutrophils # 6.29 10^3/uL (1.8-7.7); Neutrophils % 82.2 %; Nucleated Red Blood Cells % 0 %; Platelet Count 416 10^3/cmm (130-400); Red Blood Count 3.36 10^6/uL (4.1-5.3); Red Cell Distribution Width 18.4 % (12.1-15.1); White Blood Count 7.7 10^3/uL (4.0-10.0)
[2022-11-15 14:16] LABS: Lactic Sepsis W/Reflex 1.5 mmol/L (0.5-2.2)
[2022-11-15 14:19] LABS: Troponin(5th) Baseline 143 ng/L (0-10)
[2022-11-15 14:27] LABS: Alanine Aminotransferase 89 U/L (0-33); Albumin Level 3.4 g/dL (3.5-5.2); Alkaline Phosphatase 797 U/L (35-105); Anion Gap 26.1 (5-19); Aspartate Amino Transferase 124 U/L (0-32); Blood Urea Nitrogen 58 mg/dL (8-23); Calcium 8.5 mg/dL (8.5-10.5); Carbon Dioxide 22 mmol/L (22-29); Chloride 90 mmol/L (98-107); Globulin 3.2 g/dL (1.3-4.6); Glomerular Filtration Rate 9.2 mL/min (90-130); Glucose 359 mg/dL (65-115); Osmolality Calculated 305 mOsm/kg (285-295); Potassium 6.1 mmol/L (3.5-5.1); Sodium 132 mmol/L (136-145); Total Bilirubin 0.5 mg/dL (0.15-1.2); Total Protein 6.6 g/dL (6.6-8.7)
[2022-11-15 14:51] LABS: NT Pro B Type Natriuretic Pept > 70000 pg/mL (0-125)
[2022-11-15] MEDS: calcium gluconate 0.9% NaCL 1 GM/50 ML PREMIX IV (14:58)
[2022-11-15 15:06] LABS: Adenovirus Not Detected (NOT DETECT); Chlamydia Pneumoniae Not Detected (NOT DETECT); Coronavirus 229E,HKU1,NL63,OC4 Not Detected (NOT DETECT); Human Metapneumovirus Not Detected (NOT DETECT); Human Rhinovirus/Enterovirus Not Detected (NOT DETECT); Influenza A Not Detected (NOT DETECT); Influenza A H1 Not Detected (NOT DETECT); Influenza A H1-2009 Not Detected (NOT DETECT); Influenza A H3 Not Detected (NOT DETECT); Influenza B Not Detected (NOT DETECT); Mycoplasma Pneumoniae Not Detected (NOT DETECT); Parainfluenza Virus Type 1 Not Detected (NOT DETECT); Parainfluenza Virus Type 2 Not Detected (NOT DETECT); Parainfluenza Virus Type 3 Not Detected (NOT DETECT); Parainfluenza Virus Type 4 Not Detected (NOT DETECT); Respiratory Syncytial Virus A Not Detected (NOT DETECT); Respiratory Syncytial Virus B Not Detected (NOT DETECT); SARS-COV-2 Not Detected (NOT DETECT)
--- NOTE | 2022-11-15 16:13 | ECG_ITS ---
[facility] Test Date: 2022-11-15 Pat Name: Cony Temple Department: Room: Gender: Female Logging Shovel Operator: : 1955 Requested By: Micah Connell Order Number: [id number] Doug MD: Krupa Yarbrough M.D. Measurements Intervals [place] Rate: 94 P: 71 [place]: 220 QRS: -5 QRSD: 116 T: 128 QT: 392 QTc: 491 Interpretive Statements SINUS RHYTHM WITH FIRST DEGREE AV BLOCK MODERATE INTRAVENTRICULAR CONDUCTION DELAY [110+ ms QRS DURATION] ST DEVIATION AND MODERATE T-WAVE ABNORMALITY, CONSIDER LATERAL ISCHEMIA [-0.1+ mV T-WAVE IN I/aVL/V5/V6] Compared to ECG 11/15/2022 13:02:38 Intraventricular conduction delay now present T-wave abnormality still present Possible ischemia still present Electronically Signed On 11-16-2022 0:27:12 COMPLAINT OPERATOR by Krupa Yarbrough M.D. [id number]
--- NOTE | 2022-11-15 16:14 | CTR_ITS ---
PROCEDURE INFORMATION: Exam: CTA Chest Without And With Contrast Exam date and time: 11/15/2022 6:03 PM Age: 67 years old Clinical indication: Other: Dialysis patient with generalized body aches; Shortness of breath; Additional info: SOB, worsening o2 req, abnormal cxr, . plan to dialyze shortly TECHNIQUE: Imaging protocol: Computed tomographic angiography of the chest without and with contrast. 3D rendering (Not supervised by radiologist): MIP and/or 3D reconstructed images were created by the technologist. Radiation optimization: All CT scans at this facility use at least one of these dose optimization techniques: automated exposure control; mA and/or kV adjustment per patient size (includes targeted exams where dose is matched to clinical indication); or iterative reconstruction. Contrast material: OMNIPAQUE 350; Contrast volume: 95 ml; Contrast route: INTRAVENOUS (IV); Other protocol: This patient has received 4 known CTs and 0 known cardiac nuclear medicine studies in the 12 months prior to the current study. COMPARISON: CT chest w con* [id number] 10/17/2022 10:03 AM RADIATION DOSE METRICS: Total DLP (mGy-cm): 578.03 FINDINGS: Pulmonary arteries: Normal. No pulmonary emboli. Aorta: Unremarkable. No aortic aneurysm. No aortic dissection. Lungs: Patchy bilateral airspace infiltrates. Pleural spaces: Unremarkable. No pneumothorax. No pleural effusion. Heart: Cardiomegaly. Coronary arteries: Coronary artery atherosclerotic calcifications. Lymph nodes: Unremarkable. No enlarged lymph nodes. Bones/joints: Sternotomy wires. T12 vertebral body compression deformity without retropulsion of bony fragments. Soft tissues: Unremarkable. Other findings: Large bilateral loculated effusions. PROCEDURE INFORMATION: Exam: CT Abdomen And Pelvis With Contrast Exam date and time: 11/15/2022 6:03 PM Age: 67 years old Clinical indication: Other: Dialysis patient with generalized body aches; Shortness of breath; Additional info: SOB, worsening o2 req, abnormal cxr, . plan to dialyze shortly TECHNIQUE: Imaging protocol: Computed tomography of the abdomen and pelvis with contrast. Radiation optimization: All CT scans at this facility use at least one of these dose optimization techniques: automated exposure control; mA and/or kV adjustment per patient size (includes targeted exams where dose is matched to clinical indication); or iterative reconstruction. Contrast material: OMNIPAQUE 350; Contrast volume: 95 ml; Contrast route: INTRAVENOUS (IV); Other protocol: This patient has received 4 known CTs and 0 known cardiac nuclear medicine studies in the 12 months prior to the current study. COMPARISON: CT kidney stone [id number] 10/17/2022 8:19 AM RADIATION DOSE METRICS: Total DLP (mGy-cm): 578.03 FINDINGS: Liver: Normal. No mass. Gallbladder and bile ducts: Gallbladder sludge. Pancreas: Normal. No ductal dilation. Spleen: Normal. No splenomegaly. Adrenal glands: Normal. No mass. Kidneys and ureters: Left kidney cyst, negative for follow up if advised. Bilateral punctate nonobstructing renal calyceal stones. Stomach and bowel: Unremarkable. No obstruction. No mucosal thickening. Appendix: No evidence of appendicitis. Intraperitoneal space: Unremarkable. No free air. No significant fluid collection. Vasculature: Unremarkable. No abdominal aortic aneurysm. Lymph nodes: Unremarkable. No enlarged lymph nodes. Urinary bladder: Unremarkable as visualized. Reproductive: Right ovary 3.4 cm cyst. Fibroid uterus. Bones/joints: Unremarkable. No acute fracture. Soft tissues: Unremarkable. CT/CT angio chest w abd pel w con IMPRESSION: 1. Negative for pulmonary embolus. 2. Large bilateral loculated effusions. 3. Cardiomegaly. 4. Sternotomy wires. 5. Coronary artery atherosclerotic calcifications. 6. Patchy bilateral airspace infiltrates. 7. T12 vertebral body compression deformity without retropulsion of bony fragments. IMPRESSION: 1. Negative for acute inflammatory process in the abdomen or pelvis. 2. Gallbladder sludge. 3. Left kidney cyst, negative for follow up if advised. 4. Right ovary 3.4 cm cyst. 5. Fibroid uterus. 6. Gallbladder sludge. 7. Left kidney cyst, negative for follow up if advised. 8. Right ovary 3.4 cm cyst. 9. Fibroid uterus. 10. Chronic left anterior acetabular and inferior pubic rami as well as left pubic fractures. 11. Bilateral punctate nonobstructing renal calyceal stones. COMMENTS: Consistent with the [employer]'s Incidental Findings Committee white paper (J Am Lalo Radiol 2018): Any incidental renal lesion less than 1 cm or classified as too small to characterize, or any incidental cystic renal lesion characterized as simple-appearing, is likely benign. No follow-up imaging is recommended for these lesions per consensus recommendations based on imaging criteria.
--- NOTE | 2022-11-15 16:47 | P.HP_ITS ---
Providers/Chief Complaint Primary Care Provider: Zenon De Los Santos MD Chief Complaint: SOB History of Present Illness Cony Temple is a 67 year old female with past medical history of end-stage renal disease on hemodialysis on TTF, coronary artery disease, congestive systolic heart failure EF of 45%, uncontrolled type 2 diabetes mellitus with history of DKA in the past, hypertension who presents to the ER today because of not feeling well and generalized weakness getting worse for last 2 to 3 days. Patient at baseline is on 2 L of oxygen supplementation but currently requiring 5 L. Otherwise she denies any nausea, vomiting, diarrhea, fever, sick contacts, difficulty breathing more than baseline. Did undergo dialysis yesterday. As per her she was able to complete the whole session. On examination in the ER patient was made comfortably in bed on 4 L oxygen supplementation with vitals blood pressure 140 over 80 mmHg. Blood work showed white count of 7.7, hemoglobin of 10.5 which is at baseline, ABG showing a pH of 7.3, PCO2 of 42 and PO2 of 60.6 on 4 L, chemistry showing a sodium of 132, potassium of 6.1, creatinine of 4.7, BUN of 58 with anion gap of 56, blood sugar of 359, AST/ALT of 124/89, alkaline phosphatase of 797, baseline troponin of 143 with proBNP of more than 70,000 Review of Systems General: Reports: 10 or more systems reviewed and unremarkable except in HPI and below Const: Denies: fever(s), chills, body aches, change in appetite, change in weight, malaise, night sweats, diaphoresis, change in sleep pattern, daytime sleepiness or snoring Eyes: Denies: change in vision, blurry vision, photophobia, eye discomfort or eye discharge ENMT: Denies: throat pain, enlarged tonsils, hoarseness, mouth pain, oral sores, dry mouth, tinnitus, nasal congestion or post nasal drip Card: Denies: chest pain, palpitations, irregular heart rhythm, edema, swelling of feet/ankles, lightheadedness, syncope, pre-syncope, dyspnea on exertion, orthopnea, leg pain with exertion or acrocyanosis Resp: Denies: dyspnea, productive cough, non-productive cough, wheezing, stridor, pain on inspiration, change in phlegm color, hemoptysis or chest congestion GI: Denies: abdominal pain, nausea, vomiting, hematemesis, coffee ground emesis, dysphagia, heartburn, diarrhea, constipation, bloating, GI cramping, change in bowel habits, pain on defecation, hematochezia or melena : Denies: flank pain, dysuria, urinary frequency, urinary urgency, urinary hesitancy, nocturia or hematuria Musc: Denies: neck pain, back pain, extremity pain, joint pain, joint swelling, joint redness, joint stiffness or limited range of motion Neuro: Denies: headache(s), numbness in extremities, weakness in extremities, sensory changes, lack of coordination, difficulty walking, frequent falls, dizziness, vertigo, confusion, Slurred speech present, difficulty communicating thoughts or seizure-like activity Psych: Denies: anxiety, depression, mood swings, panic attacks, hopelessness or irritability Endo: Denies: polyuria, polydipsia, tired all the time, cold intolerance, excessive sweating, flushing or heat intolerance Los/Lymph: Denies: easy bruising or easy bleeding All/Imm: Denies: tongue swelling, facial swelling or acute wheezing Medications/Allergies Home Medications Medication Instructions Recorded Confirmed Last Taken Type insulin aspart U-100 100 unit/mL See Rx Instructions .Route .COMPLEX 08/21/21 11/15/22 10/16/22 History (3 mL) subcutaneous pen (Novolog was giving FlexPen U-100 Insulin aspart) q2h 10/16 pantoprazole 40 mg tablet,delayed 40 mg PO QAM 08/21/21 11/15/22 11/14/22 History release amlodipine 10 mg tablet 10 mg PO BEDTIME 03/06/22 11/15/22 11/14/22 History atorvastatin 40 mg tablet 40 mg PO QPM 03/06/22 11/15/22 11/14/22 History carvedilol 12.5 mg tablet 12.5 mg PO BID 03/06/22 11/15/22 11/14/22 History clopidogrel 75 mg tablet 75 mg PO QAM 03/06/22 11/15/22 11/14/22 History levothyroxine 75 mcg tablet 37.5 mcg PO DAILY 03/06/22 11/15/22 1 Month Ago History ~09/16/22 pt stop taking vit B,C-folic ac 800 mcg-zinc 12.5 1 tab PO QAM 0511/15/22 11/14/22 History mg-selen-D3 2,000 unit-vit E tablet (RenaPlex-D) calcium carbonate 600 mg-vitamin 1 ea PO BID 30 days #60 tabs 10/17/22 11/15/22 11/14/22 Rx D3 10 mcg (400 unit) tablet hydrocodone 5 mg-acetaminophen 325 1 tab PO Q6H PRN pain 7 days #28 10/17/22 11/15/22 Unknown Rx mg tablet tabs metolazone 5 mg tablet 5 mg PO DAILY 30 minutes before 10/17/22 11/15/22 11/14/22 History torsemide sevelamer carbonate 800 mg tablet 1,600 mg PO TID 10/17/22 11/15/22 11/14/22 History torsemide 100 mg tablet 100 mg PO QAM 10/17/22 11/15/22 11/14/22 History venlafaxine 150 mg 150 mg PO QAM 10/17/22 11/15/22 11/14/22 History capsule,extended release 24 hr aspirin 81 mg chewable tablet 81 mg PO DAILY 11/15/22 11/15/22 11/14/22 History insulin glargine 100 unit/mL (3 5 unit SUBCUT BID 11/15/22 11/15/22 11/14/22 History mL) subcutaneous pen (Basaglar KwikPen U-100 Insulin) lorazepam 1 mg tablet 1 mg PO TID PRN Anxiety 11/15/22 11/15/22 Unknown History Allergies Allergy/AdvReac Type Severity Reaction Status Date / Time azithromycin Allergy Unknown Verified 10/17/22 08:06 erythromycin base Allergy Unknown Verified 10/17/22 08:07 mycins Allergy Unknown Uncoded 11/09/21 11:13 PFSH Acute PFSH: Medical History (Updated 11/15/22 @ 17:07 by Geovanni Fleming MD) CAD in the [place] artery Closed fracture of pubic ramus Depression ESRD on dialysis Fall Fracture acetabulum-closed Gastroparesis GERD (gastroesophageal reflux disease) Hyperlipidemia Hypertension Hypothyroidism Uncontrolled diabetes mellitus Social History Smoking and tobacco status: never smoked Alcohol intake: never Vitals/I&O/Wt Last Vital Signs Temp 97.8 F 11/15/22 12:44 Pulse 94 11/15/22 16:05 Resp 20 H 11/15/22 16:05 BP 141/80 11/15/22 15:03 Pulse Ox 92 11/15/22 16:05 O2 Del Method 11/15/22 16:05 O2 Flow Rate 4 11/15/22 16:05 Weight last 48 hrs Weight 49.895 kg Physical Exam Narrative: General: No acute distress, AO x3, chronically sick appearing, wea k, on 4 L oxygen supplementation HEENT: PERRLA, pupils bilaterally equal and reactive Chest: Normal vesicular breath sounds, soft crackles bilaterally on lower up to mid lungs s, equal good air entry bilaterally CVS: S1-S2 regular, pansystolic murmur at apex, no tachycardia, no gallops, no rubs Abdomen: Soft, nontender, no organomegaly, bowel sounds present Neuro: No focal deficits, no facial deformity, AO x3, power 5/5 in all limbs Data 11/15/22 13:45 11/15/22 13:45 Micro: Microbiology 11/15/22 13:40 Blood Culture - Preliminary Blood SPECIMEN COLLECTED 11/15/22 13:45 Blood Culture - Preliminary Blood SPECIMEN COLLECTED A&P Assessment and plan (1) Generalized weakness: Unknown cause for now. Could be secondary to hyperglycemia, cannot rule out DKA. Cannot rule out cholecystitis given transaminitis and elevated alkaline phosphatase. Cannot rule out congestive heart failure given elevated proBNP. Cannot rule out worsening of CKD and requiring more sessions of hemodialysis. Given concerns for cholecystitis versus pneumonia for now we will start on empiric antibiotics with vancomycin and Zosyn. Check blood cultures, MRSA swab. COVID pcr negative. check FLU (2) Acute and chronic respiratory failure with hypoxia: Most likely secondary to congestive heart failure exacerbation. Last echocardiogram from 2020 showed an EF of 45% with global LV hypokinesia. Cannot rule out PE. Check CTA. Cycle troponins. We will consult nephrology for extra sessions of dialysis today. IV Lasix 100 mg one-time. Patient takes torsemide and metolazone at home. Continue metolazone. (3) End-stage renal disease needing dialysis: Nephrology consult. (4) Hyperkalemia: Need for dialysis. Nephrology consulted. (5) Acute on chronic diastolic CHF (congestive heart failure): Strict input strict input output charting. Daily weights. (6) Uncontrolled diabetes mellitus: With concerns for possible DKA. pH pH normal on ABG. Anion gap 26. Cannot give IV fluids with concerns for congestive heart failure. Check ketones. Takes Basaglar 5 units twice daily and insulin sliding scale at home. Continue Lantus at current dose. Start on insulin sliding scale at moderate dose protocol. Given anion gap of 26 along with blood sugar of 359 while ketones is pending will give 10 units of IV insulin. We will plan on insulin drip as per ketones levels. (7) Hypertension: Goal blood pressure less than 140/90 mmHg. Continue home dose of carvedilol. Uptitrate as per goals. (8) CAD in the [place] artery: Denies chest pain. Troponin cycled. Check echocardiogram. Continue with aspirin, statin, beta-shanthi. (9) High anion gap metabolic acidosis: (10) Transaminitis: (11) Elevated alkaline phosphatase level: With history of dilated gallbladder along with cholelithiasis. CT abdomen pelvis and liver ultrasound for further evaluation to rule out cholecystitis. Patient might need MRCP for further evaluation. Plan Full code. Renal dialysis diabetic diet. Heparin 5000 every 12 hourly for DVT prophylaxis Protonix OPD prophylaxis We will plan to admit to MedSurg versus ICU depending on ketone levels and requirement of insulin drip. Attestations Medical Necessity Statement*: Admission for more more than 2 midnights for further evaluation of generalized weakness in a patient with end-stage renal disease on hemodialysis, congestive heart failure while cholecystitis, PE, infectious causes ruled out an extra session of dialysis is done for hyperkalemia and worsening of end-stage renal disease Coding Level of Care Code 98616 High MDM includes risk/complexity, reviewing previous or external records, reviewing test results, ordering lab/other test(s), speaking with independent historian (other than patient), independently interpretating test(s) (not separ ately recorded) and discussion of management or test(s) w/ other healthcare professional and High Time for a total of 60 minutes, includes reviewing past or interval history, examining/interviewing patient, placing orders, counseling patient/family/other support, updating patient/family/other support, discussing plan of care with staff, communicating with other healthcare providers, documenting encounter and coordinating care Diagnoses Generalized weakness R53.1 Acute and chronic respiratory failure with hypoxia J96.21 End-stage renal disease needing dialysis N18.6; Z99.2 Hyperkalemia E87.5 Acute on chronic diastolic CHF (congestive heart failure) I50.33 Uncontrolled diabetes mellitus E11.65 Hypertension I10 CAD in the [place] artery I25.10 High anion gap metabolic acidosis E87.29 Transaminitis R74.01 Elevated alkaline phosphatase level R74.8
--- NOTE | 2022-11-15 17:09 | USR_ITS ---
PROCEDURE INFORMATION: Exam: US Abdomen, Limited; Right Upper Quadrant Exam date and time: 11/15/2022 5:22 PM Age: 67 years old Clinical indication: Abnormal findings; Abnormal radiologic finding of the abdomen; Radiologic exam and body structure: CT; Additional info: Cholelithiasis, possible cholecystitis TECHNIQUE: Imaging protocol: Real time ultrasound of the abdomen with image documentation. Limited exam focused on the right upper quadrant. COMPARISON: US gall bladder [id number] 03/06/2022 12:25 AM FINDINGS: Pleural spaces: Right-sided pleural effusion somewhat visualized. Liver: Liver mildly enlarged to 17 cm with mild hepatic steatosis. Gallbladder: Gallbladder sludge, negative for cholecystitis. Biliary ducts: Normal. No stones. No dilation. Pancreas: Visualized pancreas is unremarkable. Right kidney: Several right kidney cysts measuring up to 10 mm. Several right kidney punctate nonobstructing calyceal stones. Intraperitoneal space: Small amount of ascites seen in the right abdomen. US/US gall bladder [id number] IMPRESSION: 1. Gallbladder sludge, negative for cholecystitis. 2. Several right kidney cysts measuring up to 10 mm. 3. Several right kidney punctate nonobstructing calyceal stones. 4. Right-sided pleural effusion somewhat visualized. 5. Small amount of ascites seen in the right abdomen. 6. Liver mildly enlarged to 17 cm with mild hepatic steatosis.
--- NOTE | 2022-11-15 17:12 | USCV_ITS ---
Cony Temple Age: 67 Gender: F : 1955 Exam Date: 11/15/2022 18:24 Ordering Phys: Geovanni Fleming MD Technologist: SERA Exam Location: [facility] [place] Indication: evaluate for CHF, s/p CABG 2019 BP: 151 / 82 HR: 97 Rhythm: Atrial fibrillation Technical Quality: Adequate MEASUREMENTS (Male / Female) Normal Values 2D ECHO LV Diastolic Diameter PLAX 5.3 cm 4.2 - 5.9 / 3.9 - 5.3 cm LV Systolic Diameter PLAX 4.7 cm IVS Diastolic Thickness 1.3 cm 0.6 - 1.0 / 0.6 - 0.9 cm IVS Systolic Thickness 1.5 cm LVPW Diastolic Thickness 0.8 cm 0.6 - 1.0 / 0.6 - 0.9 cm LVPW Systolic Thickness 0.9 cm LVOT Diameter 1.9 cm LV Ejection Fraction 2D Teich 23.0 % LV Ejection Fraction MOD 2C 20.3 % LV Ejection Fraction 2C AL 19.3 % LA Diameter 4.8 cm LA Width 4.5 cm LA Height 6.8 cm RA Width 3.3 cm RA Height 4.0 cm Aorta at Sinotubular Diameter 2.8 cm IVC Diameter 1.4 cm M-MODE Aortic Annulus Diameter 3.0 cm LA Ao Ratio MM 1.5 MV E Point Septal Separation 1.1 cm DOPPLER AV Peak Velocity 93.0 cm/s LVOT Peak Velocity 63.0 cm/s AV Area Cont Eq vti 2.2 cm squared AV Area Cont Eq pk 1.9 cm squared MV Area PHT 3.4 cm squared MV E' Velocity 59.5 cm/s Mitral E to MV E' Ratio 20.0 Mitral E to LV E' Lateral Ratio 21.9 Mitral E to LV E' Septal Ratio 18.7 TR Peak Velocity 279.8 cm/s TR Peak Gradient 31.3 mmHg TV Peak E Velocity 60.0 cm/s Right Atrial Pressure 10.0 mmHg Pulmonary Artery Systolic Pressu 41.3 mmHg PV Peak Velocity 84.0 cm/s RV Acceleration Time 0.1 s RV Ejection Time 0.3 s RV AcT/ET 0.3 FINDINGS Left Ventricle Dilated left ventricle. Severely decreased left ventricular systolic function. Left ventricular ejection fraction is estimated at 20 %. Severe global left ventricular hypokinesis. Abnormal diastolic function. Right Ventricle Normal right ventricular size and systolic function. Right ventricular systolic pressure 40 mmHg. Right Atrium Normal right atrial size. Left Atrium Moderately increased left atrial size. Mitral Valve Structurally normal mitral valve. No mitral valve stenosis. Trace mitral valve regurgitation. Aortic Valve [place] thickened trileaflet aortic valve. No aortic valve stenosis. No aortic valve regurgitation. Tricuspid Valve Structurally normal tricuspid valve. No tricuspid valve stenosis. Mild tricuspid valve regurgitation. Pulmonic Valve Structurally normal pulmonic valve. No pulmonary valve stenosis. No significant pulmonary valve regurgitation. Trace pulmonary valve regurgitation. Pericardium No pericardial effusion. Aorta Normal size aortic root and proximal ascending aorta. IVC Normal IVC dimension with >50% respiratory change of the inferior vena cava. CONCLUSIONS 1. Dilated left ventricle. Severely decreased left ventricular systolic function. Left ventricular ejection fraction is estimated at 20 %. Severe global left ventricular hypokinesis. Abnormal diastolic function. 2. When compared to study dated 08/30/2021, left ventrciular systolic function has decreased. Darby Leung MD (Electronically Signed) Final Date: 16 November 2022 10:16 S
[2022-11-15 17:24] LABS: Troponin 5 2HR 161.7 ng/L (0-10); Troponin 5 2HR Delta 18.7 ABS# (0-10)
[2022-11-15] MEDS: FUROsemide 10 mg/mL SDV 10mL 100 MG IVP (17:27)
[2022-11-15] MEDS: insulin regular-human 100 units/1 mL 7 UNIT IVP (17:30)
[2022-11-15 17:42] LABS: Ketone (Acetest) Serum Negative (Negative)
[2022-11-15 17:55] LABS: Lactic Sepsis W/Reflex 1.6 mmol/L (0.5-2.2)
[2022-11-15 18:06] LABS: Thyroid Stimulating Hormone 8.89 uIU/mL (0.27-4.20)
[2022-11-15 18:14] LABS: Iron 46 ug/dL (37-145); Percent Saturation 20.7 % (20-50); Total Iron Binding Capacity 222 mcg/dl; Unsaturated Iron Binding 176 ug/dL (112-347); Vitamin B12 1205 pg/mL (232-1245)
[2022-11-15 18:25] LABS: Glucose Point of Care 402 mg/dL (70-110)
--- NOTE | 2022-11-15 18:51 | ECG_ITS ---
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 Measurements Intervals [place] Rate: 94 P: 56 [place]: 211 QRS: 0 QRSD: 101 T: 149 QT: 381 QTc: 478 Interpretive Statements SINUS RHYTHM WITH FIRST DEGREE AV BLOCK POSSIBLE LEFT ATRIAL ENLARGEMENT [-0.1mV P-WAVE IN V1/V2] ST DEVIATION AND MODERATE T-WAVE ABNORMALITY, CONSIDER LATERAL ISCHEMIA [-0.1+ mV T-WAVE IN I/aVL/V5/V6] Compared to ECG 11/15/2022 16:13:27 Intraventricular conduction delay no longer present T-wave abnormality still present Possible ischemia still present Electronically Signed On 11-17-2022 8:17:46 SHEET [employer] SUPERVIS[employer] by Darby Leung M.D. [id number]
[2022-11-15 19:21] LABS: Folate Level > 20.0 ng/mL (4.8-37.3)
[2022-11-15] MEDS: docusate sodium 100 mg Capsule PO (19:23)
[2022-11-15] MEDS: atorvastatin 40 mg Tablet PO (19:23)
[2022-11-15] MEDS: carvedilol 12.5 mg Tablet PO (19:23)
[2022-11-15] MEDS: vancomycin 1,000 MG in sodium chloride 0.9% 250 ML 250 MG IV (19:24)
[2022-11-15] MEDS: piperacillin-tazobactam 3.375 GM in sodium chloride 0.9% (plus) 50 ML IV (19:25)
[2022-11-15] MEDS: heparin 5,000 unit/mL INJ 1 mL 5000 UNIT SUBCUT (19:33)
[2022-11-15 19:42] LABS: Glucose Point of Care 347 mg/dL (70-110)
[2022-11-15] MEDS: insulin lispro 100 unit/1 mL SUBCUT (19:49)
[2022-11-15 20:27] LABS: Troponin 5 6HR Delta -3.6 ng/L (0-12)
[2022-11-15 20:29] LABS: Troponin 5 6HR 139.4 ng/L (0-10)
[2022-11-15] MEDS: sevelamer 800 mg Tablet 1600 MG PO (21:12)
[2022-11-15] MEDS: amlodipine 10 mg Tablet PO (21:12)
[2022-11-15] MEDS: insulin glargine 100 units/1 mL 5 UNIT SUBCUT (21:58)
[2022-11-15] MEDS: ipratropium-albuterol 3 mL Neb INHALATION (22:23)
[2022-11-15] MEDS: budesonide 0.5 mg/2 mL Neb INHALATION (22:23)
[2022-11-16] VITALS (14 sets, daily range): BP systolic 121–174; BP diastolic 72–83; PULSE 71–99; RESP 16–18; TEMP 36.4–37; O2SAT 91–96
[2022-11-16] MEDS: heparin, porcine 1,000 unit/mL INJ 10 mL 1000 UNIT IV (00:21)
[2022-11-16] MEDS: insulin lispro 100 unit/1 mL SUBCUT ×3 (00:32→22:27)
[2022-11-16 00:36] LABS: Glucose Point of Care 161 mg/dL (70-110)
[2022-11-16] MEDS: clopidogrel 75 mg Tablet PO (05:46)
[2022-11-16] MEDS: pantoprazole DR 40 mg Tablet PO (05:46)
[2022-11-16] MEDS: venlafaxine ER (24HR) 150 mg Capsule PO (05:47)
[2022-11-16 05:50] LABS: Basophils # 0.1 10^3/uL (0.0-0.1); Basophils % 0.8 %; Eosinophils # 0.1 10^3/uL (0.0-0.8); Eosinophils % 0.8 %; Hemoglobin 10.9 g/dL (11.5-15.3); Lymphocytes # 1.4 10^3/uL (0.8-4.8); Lymphocytes % 18.8 %; Mean Corpuscular HGB Conc 31.1 g/dL (30.0-36.0); Mean Corpuscular Volume 99.4 fl (81-99); Mean Platelet Volume 10.2 fL (7.4-10.4); Monocytes # 0.7 10^3/uL (0.2-0.9); Monocytes % 9.6 %; Neutrophils # 5.02 10^3/uL (1.8-7.7); Neutrophils % 69.6 %; Nucleated Red Blood Cells % 0 %; Platelet Count 389 10^3/cmm (130-400); Red Blood Count 3.52 10^6/uL (4.1-5.3); Red Cell Distribution Width 18.2 % (12.1-15.1); White Blood Count 7.2 10^3/uL (4.0-10.0)
[2022-11-16 06:04] LABS: Estmated Average Glucose 226; Hemoglobin A1C 9.5 % (4.0-6.0)
[2022-11-16 06:10] LABS: Alanine Aminotransferase 76 U/L (0-33); Albumin Level 3.4 g/dL (3.5-5.2); Alkaline Phosphatase 748 U/L (35-105); Anion Gap 17.3 (5-19); Aspartate Amino Transferase 71 U/L (0-32); Blood Urea Nitrogen 27 mg/dL (8-23); Calcium 8.3 mg/dL (8.5-10.5); Carbon Dioxide 26 mmol/L (22-29); Chloride 96 mmol/L (98-107); Chol HDL Ratio 3.05 mg/dL (0.0-4.40); Cholesterol 198 mg/dL (0-200); Globulin 2.9 g/dL (1.3-4.6); Glomerular Filtration Rate 16.8 mL/min (90-130); Glucose 59 mg/dL (65-115); HDL Cholesterol 65 mg/dL (60-100); LDL Cholesterol Calculated 111 mg/dL (50-129); Osmolality Calculated 283 mOsm/kg (285-295); Phosphorus 2.9 mg/dL (2.5-4.5); Potassium 4.3 mmol/L (3.5-5.1); Sodium 135 mmol/L (136-145); Total Bilirubin 0.3 mg/dL (0.15-1.2); Total Protein 6.3 g/dL (6.6-8.7); Triglycerides 109 mg/dL (0-150); VLDL Cholestrol Calculation 22 mg/dL (0-30)
[2022-11-16] MEDS: heparin 5,000 unit/mL INJ 1 mL 5000 UNIT SUBCUT (06:10)
[2022-11-16 06:29] LABS: Glucose Point of Care 63 mg/dL (70-110)
--- NOTE | 2022-11-16 06:37 | PC.NURSE ---
blood sugar 63, asymptomatic, juice provided, tolerated well.
--- NOTE | 2022-11-16 07:41 | PM.CONSULT ---
Providers/Reason For Consult Consulting Physician/Specialty*: [place] /nEPHROLOGY Reason for Consult*: esrd Attending Physician: Geovanni Fleming MD Primary Care Provider: Zenon De Los Santos MD History of Present Illness History of Present Illness Patient is a 67-year-old female with past medical history of end-stage renal disease on hemodialysis per Sunday schedule, coronary artery disease CHF with ejection fraction of 45%, diabetes, hypertension presented to the emergency department due to generalized weakness. In the emergency department patient noted to more hypoxic requiring 5 L FiO2. Lab data has showed hemoglobin of 10.5 sodium of 132 potassium was 6.1 BUN 58. Blood sugar was elevated at 359 alkaline phosphatase was 797. Patient underwent emergent hemodialysis last night. Currently she denies any complaints. Review of Systems Narrative: other ROS negative Medications/Allergies Home Medications Medication Instructions Recorded Confirmed Last Taken Type insulin aspart U-100 100 unit/mL See Rx Instructions .Route .COMPLEX 08/21/21 11/15/22 10/16/22 History (3 mL) subcutaneous pen (Novolog was giving FlexPen U-100 Insulin aspart) q2h 10/16 pantoprazole 40 mg tablet,delayed 40 mg PO QAM 08/21/21 11/15/22 11/14/22 History release amlodipine 10 mg tablet 10 mg PO BEDTIME 03/06/22 11/15/22 11/14/22 History atorvastatin 40 mg tablet 40 mg PO QPM 03/06/22 11/15/22 11/14/22 History carvedilol 12.5 mg tablet 12.5 mg PO BID 03/06/22 11/15/22 11/14/22 History clopidogrel 75 mg tablet 75 mg PO QAM 03/06/22 11/15/22 11/14/22 History levothyroxine 75 mcg tablet 37.5 mcg PO DAILY 03/06/22 11/15/22 1 Month Ago History ~09/16/22 pt stop taking vit B,C-folic ac 800 mcg-zinc 12.5 1 tab PO QAM 03/06/22 11/15/22 11/14/22 History mg-selen-D3 2,000 unit-vit E tablet (RenaPlex-D) calcium carbonate 600 mg-vitamin 1 ea PO BID 30 days #60 tabs 10/17/22 11/15/22 11/14/22 Rx D3 10 mcg (400 unit) tablet hydrocodone 5 mg-acetaminophen 325 1 tab PO Q6H PRN pain 7 days #28 10/17/22 11/15/22 Unknown Rx mg tablet tabs metolazone 5 mg tablet 5 mg PO DAILY 30 minutes before 10/17/22 11/15/22 11/14/22 History torsemide sevelamer carbonate 800 mg tablet 1,600 mg PO TID 10/17/22 11/15/22 11/14/22 History torsemide 100 mg tablet 100 mg PO QAM 10/17/22 11/15/22 11/14/22 History venlafaxine 150 mg 150 mg PO QAM 10/17/22 11/15/22 11/14/22 History capsule,extended release 24 hr aspirin 81 mg chewable tablet 81 mg PO DAILY 11/15/22 11/15/22 11/14/22 History insulin glargine 100 unit/mL (3 5 unit SUBCUT BID 11/15/22 11/15/22 11/14/22 History mL) subcutaneous pen (Basaglar KwikPen U-100 Insulin) lorazepam 1 mg tablet 1 mg PO TID PRN Anxiety 11/15/22 11/15/22 Unknown History Allergies Allergy/AdvReac Type Severity Reaction Status Date / Time azithromycin Allergy Unknown Verified 10/17/22 08:06 erythromycin base Allergy Unknown Verified 10/17/22 08:07 mycins Allergy Unknown Uncoded 11/09/21 11:13 Current Medications Generic Name Dose Route Start Last Admin Trade Name Freq PRN Reason Stop Dose Admin Albuterol/Ipratropium 3 ml 11/15/22 20:00 11/16/22 02:56 Ipratropium-Albuterol 3 Ml Neb INHALATION Not Given Q6H.RESP ALYSSA Amlodipine Besylate 10 mg 11/15/22 21:00 11/15/22 21:12 Amlodipine 10 Mg Tablet PO 10 mg BEDTIME ALYSSA Administration Atorvastatin Calcium 40 mg 11/15/22 18:22 11/15/22 19:23 Atorvastatin 40 Mg Tablet PO 40 mg QPM ALYSSA Administration Budesonide 0.5 mg 11/15/22 20:00 11/15/22 22:23 Budesonide 0.5 Mg/2 Ml Neb INHALATION 0.5 mg BID.RESPIRATORY ALYSSA Administration Carvedilol 12.5 mg 11/15/22 18:22 11/15/22 19:23 Carvedilol 12.5 Mg Tablet PO 12.5 mg BID ALYSSA Administration Clopidogrel Bisulfate 75 mg 11/16/22 06:00 11/16/22 05:46 Clopidogrel 75 Mg Tablet PO 75 mg QAM ALYSSA Administration Docusate Sodium 100 mg 11/15/22 18:22 11/15/22 19:23 Docusate Sodium 100 Mg Capsule PO 100 mg BID ALYSSA Administration Heparin Sodium (Porcine) 5,000 unit 11/15/22 19:00 11/16/22 06:10 Heparin 5,000 Unit/Ml Inj 1 Ml SUBCUT 5,000 unit Q12H ALYSSA Administration Piperacillin Sod/Tazobactam 50 mls @ 12.5 mls/hr 11/15/22 20:00 11/15/22 19:25 Sod 3.375 gm/ Sodium Chloride IV 12.5 mls/hr Q12H ALYSSA Administration Protocol Insulin Glargine 5 unit 11/15/22 20:00 11/15/22 21:58 Insulin Glargine 100 Units/1 Ml SUBCUT 5 unit Q12H ALYSSA Administration Insulin Human Lispro 0 unit 11/15/22 19:00 11/16/22 06:37 Insulin Lispro 100 Unit/1 Ml SUBCUT Not Given Q4H [facility] Protocol Non-Formulary Medication 1 tab 11/16/22 06:00 11/16/22 05:47 Vit B,N-Dt-Myku-Selen-Vit D3-E [Renaplex-D] PO Not Given QAM ALYSSA Pantoprazole Sodium 40 mg 11/16/22 06:00 11/16/22 05:[address] 40 Mg Tablet PO 40 mg QAM ALYSSA Administration Sevelamer Carbonate 1,600 mg 11/15/22 21:00 11/15/22 21:12 Sevelamer 800 Mg Tablet PO 1,600 mg TID ALYSSA Administration Venlafaxine HCl 150 mg 11/16/22 06:00 11/16/22 05:47 Venlafaxine Er (24hr) 150 Mg Capsule PO 150 mg QAM ALYSSA Administration PFSH Acute PFSH: Medical History (Updated 11/15/22 @ 17:07 by Geovanni Fleming MD) CAD in [place] artery Closed fracture of pubic ramus Depression ESRD on dialysis Fall Fracture acetabulum-closed Gastroparesis GERD (gastroesophageal reflux disease) Hyperlipidemia Hypertension Hypothyroidism Uncontrolled diabetes mellitus Social History Smoking and tobacco status: never smoked Alcohol intake: never Vitals/I&O/Wt Last Vital Signs Temp 98.6 F 11/16/22 04:30 Pulse 90 11/16/22 04:30 Resp 18 11/16/22 04:30 BP 136/83 11/16/22 04:30 Pulse Ox 90 11/15/22 23:31 O2 Del Method 11/15/22 23:31 O2 Flow Rate 4 11/15/22 23:31 11/15/22 11/16/22 11/16/22 22:59 06:59 14:59 Intake Total 150 / 150 500 / 650 Output Total 3518 / 3518 Balance 150 / 150 -3018 / -2868 Weight last 48 hrs Weight 45.955 kg Weight 45 kg Weight 49.895 kg Physical Exam Narrative: Patient is awake alert, no acute distress, HEENT, clear to auscultation per report, S1-S2 regular rate and rhythm per report, no pedal edema per report Data 11/16/22 05:22 11/16/22 05:22 Micro: Microbiology 11/15/22 13:40 Blood Culture - Preliminary Blood SPECIMEN COLLECTED 11/15/22 13:45 Blood Culture - Preliminary Blood SPECIMEN COLLECTED A&P Assessment and plan (1) ESRD (end stage renal disease) on dialysis: Plan 1. End-stage renal disease: On TTS schedule as outpatient, patient presented with hyperkalemia and volume overload, status post emergent hemodialysis last night. We will plan on next dialysis in the morning. 2. Hyperkalemia: Potassium was 6.1 on presentation, improved now 3. History of CHF with reduced ejection fraction, ultrafiltration with HD as above 4. Hyponatremia: Mild, monitor 5. Anemia: Secondary to ESRD, hemoglobin was 10.5,, monitor 6. Elevated alk phos level: Work-up in progress per primary team Patient evaluated using audiovisual cart. Time spent 40 minutes Consult Attestations Medical Necessity Statement: needs inpt stay Coding Level of Care Code Acute Code for Chg Fwd Diagnoses ESRD (end stage renal disease) on dialysis N18.6; Z99.2
[2022-11-16] MEDS: ipratropium-albuterol 3 mL Neb INHALATION ×3 (07:42→19:54)
[2022-11-16] MEDS: budesonide 0.5 mg/2 mL Neb INHALATION ×2 (07:42→19:54)
[2022-11-16] MEDS: levothyroxine 75 mcg Tablet 37.5 MCG PO (08:27)
[2022-11-16] MEDS: piperacillin-tazobactam 3.375 GM in sodium chloride 0.9% (plus) 50 ML IV (08:27)
[2022-11-16] MEDS: carvedilol 12.5 mg Tablet PO ×2 (08:28→17:59)
[2022-11-16] MEDS: aspirin 81 mg Chew Tablet PO (08:28)
[2022-11-16] MEDS: metOLazone 5 MG Tablet PO (08:28)
[2022-11-16] MEDS: sevelamer 800 mg Tablet 1600 MG PO ×3 (08:28→20:45)
[2022-11-16] MEDS: docusate sodium 100 mg Capsule PO ×2 (08:29→17:59)
[2022-11-16] MEDS: insulin glargine 100 units/1 mL 5 UNIT SUBCUT ×2 (09:29→17:58)
--- NOTE | 2022-11-16 10:56 | PC.CHAP ---
Pastoral Care Encounter/Spiritual Assessment Type of Contact [] Declined bottle capper visit [] Patient/Family/Request visit [] Outpatient visit [] Follow-up visit [] Physician referral [] Code/Alert [x] Routine visit [] Staff referral [] Actively dying [] Patient sleeping [] Family support [] [] Out of room [] Palliative care [] [x] Receiving care in room [] Pre-surgical visit [] Trauma [] Long length of stay [] ICU visit [] Other: Relational/Emotional Strength [x] Patient feels connected with others/family/visitors/staff [] Distress [] Loneliness/isolation [] Abandonment Spirituality of Patient [x] Person of Annabel [] Attends Mosque of their Annabel [x] Believes in Prayer [] Reads Bible or Muslim materials [] There are Spiritual issues to be addressed Filer Helper Interventions [x] Prayer [x] Active listening [x] Non-anxious presence [x] Spiritual/emotional support [] Crisis/trauma care [x] Spiritual counseling [] Bereavement support [] Provided bereavement packet [] Provided Bible/devotional materials [] Provided toy/stuffed animal, coloring book to patient or family member [] Provided Communion [] Anointing/[place] [] Salvation [x] Completed spiritual assessment [] Other: Impact on Illness or Injury [] Angry [] Fearful [x] Anxious [] Often cries [] Exhaustion [x] Unable to work [] Unable to attend hindu [] Unable to walk/stand [] Unable to read [] Unable to drive [] Unable to eat/drink [] Unable to sleep [] Unable to be with family [] Patient intubated [] Other: Summary senior negative feelings about her health well get to go home Time spent with patient 10 mins
--- NOTE | 2022-11-16 10:59 | PC.CHAP ---
Pastoral Care Encounter/Spiritual Assessment Type of Contact [] Declined waiter/waitress buffet visit [] Patient/Family/Request visit [] Outpatient visit [] Follow-up visit [] Physician referral [] Code/Alert [x] Routine visit [] Staff referral [] Actively dying [] Patient sleeping [] Family support [] [] Out of room [] Palliative care [] [x] Receiving care in room [] Pre-surgical visit [] Trauma [x] Long length of stay [] ICU visit [] Other: Relational/Emotional Strength [x] Patient feels connected with others/family/visitors/staff [] Distress [] Loneliness/isolation [] Abandonment Spirituality of Patient [x] Person of Annabel [] Attends Mu-Ism of their Annabel [x] Believes in Prayer [] Reads Bible or Presybeterian materials [] There are Spiritual issues to be addressed Production Clerk Interventions [x] Prayer [x] Active listening [x] Non-anxious presence [x] Spiritual/emotional support [] Crisis/trauma care [x] Spiritual counseling [] Bereavement support [] Provided bereavement packet [] Provided Bible/devotional materials [] Provided toy/stuffed animal, coloring book to patient or family member [] Provided Communion [] Anointing/[place] [] Salvation [x] Completed spiritual assessment [] Other: Impact on Illness or Injury [] Angry [] Fearful [x] Anxious [] Often cries [] Exhaustion [] Unable to work [] Unable to attend baptism [] Unable to walk/stand [] Unable to read [] Unable to drive [] Unable to eat/drink [] Unable to sleep [] Unable to be with family [] Patient intubated [] Other: Summary senior negative congestive heart well be going home Time spent with patient 10 mins
--- NOTE | 2022-11-16 11:02 | PC.CHAP ---
Pastoral Care Encounter/Spiritual Assessment Type of Contact [] Declined billiard player visit [x] Patient/Family/Request visit [] Outpatient visit [] Follow-up visit [] Physician referral [] Code/Alert [] Routine visit [] Staff referral [] Actively dying [] Patient sleeping [] Family support [] [] Out of room [] Palliative care [] [x] Receiving care in room [] Pre-surgical visit [] Trauma [x] Long length of stay [] ICU visit [] Other: Relational/Emotional Strength [x] Patient feels connected with others/family/visitors/staff [] Distress [] Loneliness/isolation [] Abandonment Spirituality of Patient [x] Person of Annabel [] Attends Methodist of their Annabel [x] Believes in Prayer [] Reads Bible or Denominational materials [] There are Spiritual issues to be addressed Air Grinder Interventions [x] Prayer [x] Active listening [x] Non-anxious presence [x] Spiritual/emotional support [] Crisis/trauma care [x] Spiritual counseling [] Bereavement support [] Provided bereavement packet [] Provided Bible/devotional materials [] Provided toy/stuffed animal, coloring book to patient or family member [] Provided Communion [] Anointing/[place] [] Salvation [x] Completed spiritual assessment [] Other: Impact on Illness or Injury [] Angry [] Fearful [x] Anxious [] Often cries [] Exhaustion [] Unable to work [] Unable to attend bahai [] Unable to walk/stand [] Unable to read [] Unable to drive [] Unable to eat/drink [] Unable to sleep [] Unable to be with family [] Patient intubated [] Other: Summary confused unable to communicat about her health well go home at some point Time spent with patient 10 mins
[2022-11-16 11:18] LABS: Glucose Point of Care 177 mg/dL (70-110)
--- NOTE | 2022-11-16 13:15 | PM.PN ---
Vitals/I&O/Wt Last Vital Signs Temp 97.5 F L 11/16/22 11:40 Pulse 75 11/16/22 11:40 Resp 16 11/16/22 08:00 BP 121/72 11/16/22 11:40 Pulse Ox 96 11/16/22 11:40 O2 Del Method 11/16/22 11:40 O2 Flow Rate 4 11/16/22 08:24 11/15/22 11/16/22 11/16/22 22:59 06:59 14:59 Intake Total 150 / 150 550 / 700 60 / 60 Output Total 3518 / 3518 Balance 150 / 150 -2968 / -2818 60 / 60 Weight last 48 hrs Weight 45.955 kg Weight 45 kg Weight 49.895 kg Physical Exam Narrative: General: No acute distress, AO x3, chronically sick appearing, weak, on 4 L oxygen supplementation HEENT: PERRLA, pupils bilaterally equal and reactive Chest: Normal vesicular breath sounds, soft crackles bilaterally on lower up to mid lungs s, equal good air entry bilaterally CVS: S1-S2 regular, pansystolic murmur at apex, no tachycardia, no gallops, no rubs Abdomen: Soft, nontender, no organomegaly, bowel sounds present Neuro: No focal deficits, no facial deformity, AO x3, power 5/5 in all limbs Data 11/16/22 05:22 11/16/22 05:22 Micro: Microbiology 11/15/22 13:40 Blood Culture - Preliminary Blood SPECIMEN COLLECTED 11/15/22 13:45 Blood Culture - Preliminary Blood SPECIMEN COLLECTED A&P Assessment and plan (1) Generalized weakness: Multifactorial. In setting of uncontrolled diabetes mellitus, congestive heart failure in setting of new low EF, non-ST elevation LA, end-stage renal disease requiring emergent hemodialysis. Appreciate CTA chest and abdomen results. Cholecystitis ruled out. DKA ruled out. Patient has remained hemodynamically stable, afebrile without leukocytosis. Infectious cause less likely. We will hold off on any further antibiotics. Will monitor for changes in hemodynamics or fever. Follow-up blood cultures. COVID-19 PCR, flu negative. (2) NSTEMI (non-ST elevated myocardial infarction): Appreciate troponin cycles. Appreciate new low EF on echocardiogram. Patient is post CABG. Denies any chest pain. Cardiology consulted. Start on heparin drip. Continue with aspirin, statin, beta-shanthi, Plavix. Appreciate A1c, lipid panel results. (3) Acute and chronic respiratory failure with hypoxia: Most likely secondary to congestive heart failure exacerbation. Repeat echocardiogram done during this admission shows an EF of 20% with global LV hypokinesia, RVSP of 40 mmHg, abnormal diastolic function. Continue with aggressive IV diuresis in a patient with end-stage renal disease. Continue with home dose of metolazone. Continue with IV Lasix 80 mg daily. Dialysis as per nephrology on scheduled session of TTF (4) End-stage renal disease needing dialysis: Nephrology consult. Hemodialysis as per outpatient sessions (5) Acute on chronic diastolic CHF (congestive heart failure): Strict input strict input output charting. Daily weights. Further treatment as above. (6) Uncontrolled diabetes mellitus: With history of DKA. A1c 9.5. Highly fluctuant blood sugars. Blood sugars dropping down to high 50s early in the morning. For now continue with Lantus 5 units twice daily. Changed insulin sliding scale before meals and at bedtime at moderate dose protocol. (7) Hypertension: Goal blood pressure less than 140/90 mmHg. Continue home dose of carvedilol. Switch home dose of amlodipine to losartan 50 mg oral daily. Uptitrate as per goals. (8) CAD in [place] artery: Denies chest pain. Troponin cycle appreciated. Concerns for non-ST elevation LA. Echocardiogram results appreciated. Heparin drip and cardiology consult as above. (9) High anion gap metabolic acidosis: (10) Transaminitis: (11) Elevated alkaline phosphatase level: With history of dilated gallbladder along with cholelithiasis. Liver ultrasound rule out cholecystitis. Continue to monitor. (12) Hyperkalemia: Resolved. Plan Full code. Renal dialysis diabetic diet. Heparin drip will suffice as DVT prophylaxis Protonix for PUD prophylaxis Analgesia: Tylenol as needed Glycemic control: Lantus 5 units twice daily, sliding scale at moderate dose protocol before meals and at bedtime Nutrition: Renal dialysis diabetic diet CODE STATUS: Full code PUD prophylaxis: Protonix DVT prophylaxis: Heparin drip Discharge planning: Home with caregiver once medically stable. [facility] floor with telemetry. Patient's care discussed in detail with patient at bedside and her daughter over the phone. This documentation was created by [employer] transplanter orchid software. Every effort was made to ensure accuracy of transplanter orchid. Any obvious errors or omissions should be clarified with the author of the document. Attestations Medical Necessity Statement*: Requires further hospitalization for management of non-ST elevation LA, uncontrolled diabetes, end-stage renal disease on hemodialysis, congestive heart failure in setting of severe LV dysfunction Coding Level of Care Code 73628 High MDM includes risk/complexity, reviewing previous or external records, reviewing test results, ordering lab/other test(s), speaking with independent historian (other than patient), independently interpretating test(s) (not separately recorded) and discussion of management or test(s) w/ other healthcare professional and High Time for a total of 60 minutes, includes reviewing past or interval history, examining/interviewing patient, placing orders, counseling patient/family/other support, updating patient/family/other support, discussing plan of care with staff, communicating with other healthcare providers, documenting encounter and coordinating care Diagnoses Generalized weakness R53.1 NSTEMI (non-ST elevated myocardial infarction) I21.4 Acute and chronic respiratory failure with hypoxia J96.21 End-stage renal disease needing dialysis N18.6; Z99.2 Acute on chronic diastolic CHF (congestive heart failure) I50.33 Uncontrolled diabetes mellitus E11.65 Hypertension I10 CAD in [place] artery I25.10 High anion gap metabolic acidosis E87.29 Transaminitis R74.01 Elevated alkaline phosphatase level R74.8 Hyperkalemia E87.5
[2022-11-16 14:40] LABS: Free T4 Free Thyroxine 0.99 ng/dL (0.82-1.77)
[2022-11-16 14:45] LABS: Glucose Point of Care 92 mg/dL (70-110)
[2022-11-16] MEDS: FUROsemide 10 mg/mL SDV 10mL 80 MG IVP (15:12)
[2022-11-16 16:29] LABS: Glucose Point of Care 138 mg/dL (70-110)
--- NOTE | 2022-11-16 16:50 | P.CONIM_ITS ---
Providers/Reason For Consult Consulting Physician/Specialty*: Dean Gilmore MD/ Cardiology Reason for Consult*: Troponin elevation Requesting Physician: Dr Fleming Attending Physician: Geovanni Fleming MD Primary Care Provider: Zenon De Los Santos MD History of Present Illness History of Present Illness Cony Temple is a 67 year old female with past medical history of CAD with prior CABG 2020 presented to hospital with generalized weakness. Denies chest pain. Also has been having nausea and vomiting. Her initial troponin was 143 that trended down to one third at 6 hours. She is hemodynamically stable. EKG shows sinus rhythm with LVH changes. No significant ischemic changes seen. Echocardiogram shows LV systolic function in the is severely reduced with EF of 20%. Previous echocardiogram in our system had EF of 45%. Review of Systems General: Reports: 10 or more systems reviewed and unremarkable except in HPI and below Const: Denies: fever(s), chills, body aches, change in appetite, change in we ight, malaise, night sweats, diaphoresis, change in sleep pattern, daytime sleepiness or snoring Eyes: Denies: change in vision, blurry vision, photophobia, eye discomfort or eye discharge ENMT: Denies: throat pain, enlarged tonsils, hoarseness, mouth pain, oral sores, dry mouth, tinnitus, nasal congestion or post nasal drip Card: Denies: chest pain, palpitations, irregular heart rhythm, edema, swelling of feet/ankles, lightheadedness, syncope, pre-syncope, dyspnea on exertion, orthopnea, leg pain with exertion or acrocyanosis Resp: Denies: dyspnea, productive cough, non-productive cough, wheezing, stridor, pain on inspiration, change in phlegm color, hemoptysis or chest congestion GI: Denies: abdominal pain, nausea, vomiting, hematemesis, coffee ground emesis, dysphagia, heartburn, diarrhea, constipation, bloating, GI cramping, change in bowel habits, pain on defecation, hematochezia or melena : Denies: flank pain, dysuria, urinary frequency, urinary urgency, urinary hesitancy, nocturia or hematuria Musc: Denies: neck pain, back pain, extremity pain, joint pain, joint sw elling, joint redness, joint stiffness or limited range of motion Neuro: Denies: headache(s), numbness in extremities, weakness in extremities, sensory changes, lack of coordination, difficulty walking, frequent falls, dizziness, vertigo, confusion, Slurred speech present, difficulty communicating thoughts or seizure-like activity Psych: Denies: anxiety, depression, mood swings, panic attacks, hopelessness or irritability Endo: Denies: polyuria, polydipsia, tired all the time, cold intolerance, excessive sweating, flushing or heat intolerance Los/Lymph: Denies: easy bruising or easy bleeding All/Imm: Denies: tongue swelling, facial swelling or acute wheezing Medications/Allergies Home Medications Medication Instructions Recorded Confirmed Last Taken Type insulin aspart U-100 100 unit/mL See Rx Instructions .Route .COMPLEX 08/21/21 11/15/22 10/16/22 History (3 mL) subcutaneous pen (Novolog was giving FlexPen U-100 Insulin aspart) q2h 10/16 pantoprazole 40 mg tablet,delayed 40 mg PO QAM 08/21/21 11/15/22 11/14/22 History release amlodipine 10 mg tablet 10 mg PO BEDTIME 03/06/22 11/15/22 11/14/22 History atorvastatin 40 mg tablet 40 mg PO QPM 03/06/22 11/15/22 11/14/22 History carvedilol 12.5 mg tablet 12.5 mg PO BID 03/06/22 11/15/22 11/14/22 History clopidogrel 75 mg tablet 75 mg PO QAM 03/06/22 11/15/22 11/14/22 History levothyroxine 75 mcg tablet 37.5 mcg PO DAILY 03/06/22 11/15/22 1 Month Ago History ~09/16/22 pt stop taking vit B,C-folic ac 800 mcg-zinc 12.5 1 tab PO QAM 03/06/22 11/15/22 11/14/22 History mg-selen-D3 2,000 unit-vit E tablet (RenaPlex-D) calcium carbonate 600 mg-vitamin 1 ea PO BID 30 days #60 tabs 10/17/22 11/15/22 11/14/22 Rx D3 10 mcg (400 unit) tablet hydrocodone 5 mg-acetaminophen 325 1 tab PO Q6H PRN pain 7 days #28 10/17/22 11/15/22 Unknown Rx mg tablet tabs metolazone 5 mg tablet 5 mg PO DAILY 30 minutes before 10/17/22 11/15/22 11/14/22 History torsemide sevelamer carbonate 800 mg tablet 1,600 mg PO TID 10/17/22 11/15/22 11/14/22 History torsemide 100 mg tablet 100 mg PO QAM 10/17/22 11/15/22 11/14/22 History venlafaxine 150 mg 150 mg PO QAM 10/17/22 11/15/22 11/14/22 History capsule,extended release 24 hr aspirin 81 mg chewable tablet 81 mg PO DAILY 11/15/22 11/15/22 11/14/22 History insulin glargine 100 unit/mL (3 5 unit SUBCUT BID 11/15/22 11/15/22 11/14/22 History mL) subcutaneous pen (Basaglar KwikPen U-100 Insulin) lorazepam 1 mg tablet 1 mg PO TID PRN Anxiety 11/15/22 11/15/22 Unknown History Allergies Allergy/AdvReac Type Severity Reaction Status Date / Time azithromycin Allergy Unknown Verified 10/17/22 08:06 erythromycin base Allergy Unknown Verified 10/17/22 08:07 mycins Allergy Unknown Uncoded 11/09/21 11:13 Current Medications Generic Name Dose Route Start Last Admin Trade Name Freq PRN Reason Stop Dose Admin Albuterol/Ipratropium 3 ml 11/15/22 20:00 11/16/22 13:49 Ipratropium-Albuterol 3 Ml Neb INHALATION 3 ml Q6H.RESP ALYSSA Administration Aspirin 81 mg 11/16/22 09:00 11/16/22 08:28 Aspirin 81 Mg Chew Tablet PO 81 mg DAILY ALYSSA Administration Atorvastatin Calcium 40 mg 11/15/22 18:22 11/15/22 19:23 Atorvastatin 40 Mg Tablet PO 40 mg QPM ALYSSA Administration Budesonide 0.5 mg 11/15/22 20:00 11/16/22 07:42 Budesonide 0.5 Mg/2 Ml Neb INHALATION 0.5 mg BID.RESPIRATORY ALYSSA Administration Carvedilol 12.5 mg 11/15/22 18:22 11/16/22 08:28 Carvedilol 12.5 Mg Tablet PO 12.5 mg BID ALYSSA Administration Clopidogrel Bisulfate 75 mg 11/16/22 06:00 11/16/22 05:46 Clopidogrel 75 Mg Tablet PO 75 mg QAM ALYSSA Administration Docusate Sodium 100 mg 11/15/22 18:22 11/16/22 08:29 Docusate Sodium 100 Mg Capsule PO 100 mg BID ALYSSA Administration Furosemide 80 mg 11/16/22 13:30 11/16/22 15:12 Furosemide 10 Mg/Ml Sdv 10ml IVP 80 mg Q24H ALYSSA Administration Levothyroxine Sodium 37.5 mcg 11/16/22 09:00 11/16/22 08:27 Levothyroxine 75 Mcg Tablet PO 37.5 mcg DAILY ALYSSA Administration Metolazone 5 mg 11/16/22 09:00 11/16/22 08:28 Metolazone 5 Mg Tablet PO 5 mg DAILY ALYSSA Administration Non-Formulary Medication 1 tab 11/16/22 06:00 11/16/22 05:47 Vit B,H-Xo-Edso-Selen-Vit D3-E [Renaplex-D] PO Not Given QAM ALYSSA Pantoprazole Sodium 40 mg 11/16/22 06:00 11/16/22 05:[address] 40 Mg Tablet PO 40 mg QAM ALYSSA Administration Sevelamer Carbonate 1,600 mg 11/15/22 21:00 11/16/22 15:12 Sevelamer 800 Mg Tablet PO 1,600 mg TID ALYSSA Administration Venlafaxine HCl 150 mg 11/16/22 06:00 11/16/22 05:47 Venlafaxine Er (24hr) 150 Mg Capsule PO 150 mg QAM ALYSSA Administration PFSH Acute PFSH: Medical History CAD in [place] artery Closed fracture of pubic ramus Depression ESRD on dialysis Fall Fracture acetabulum-closed Gastroparesis GERD (gastroesophageal reflux disease) Hyperlipidemia Hypertension Hypothyroidism Uncontrolled diabetes mellitus Social History Smoking and tobacco status: never smoked Alcohol intake: never Vitals/I&O/Wt Last Vital Signs Temp 98.0 F 11/16/22 15:43 Pulse 76 11/16/22 15:43 Resp 16 11/16/22 13:50 BP 137/77 11/16/22 15:43 Pulse Ox 95 11/16/22 15:43 O2 Del Method 11/16/22 15:43 O2 Flow Rate 4 11/16/22 15:43 11/16/22 11/16/22 11/16/22 06:59 14:59 22:59 Intake Total 550 / 700 60 / 60 Output Total 3518 / 3518 Balance -2968 / -2818 60 / 60 Weight last 48 hrs Weight 101 lb 5 oz Weight 99 lb 3.328 oz Weight 110 lb Physical Exam Narrative: GENERAL: Patient is alert, awake and oriented x3. [] NECK: No jugular vein distension. [] HEENT: No cyanosis. No icterus. No pallor. [] HEART: Regular S1 and S2. No murmur, rub or gallop. [] LUNGS: Clear to auscultate bilaterally. [] CENTRAL NERVOUS SYSTEM: Grossly nonfocal. [] EXTREMITIES: Lower extremities with 1+ edema bilaterally. Pulses palpable in the lower extremities, both dorsalis pedis and posterior tibial. [] Data 11/16/22 05:22 11/16/22 05:22 Micro: Microbiology 11/15/22 19:30 MRSA Culture - Final Nose 11/15/22 13:40 Blood Culture - Preliminary Blood NEGATIVE TO DATE 11/15/22 13:45 Blood Culture - Preliminary Blood NEGATIVE TO DATE A&P Assessment and plan (1) CAD in [place] artery: (2) ESRD (end stage renal disease) on dialysis: (3) Troponin level elevated: (4) Uncontrolled diabetes mellitus: (5) Hypertension: Plan Patient has presented with atypical symptoms. Troponins have not trended up significantly. Likely secondary to demand ischemia. Continue aspirin and Plavix. We will obtain records from her outpatient event specialist food demonstrator in [place]. I spoke with patient's daughter who says that LV systolic function was told to be 25 to 30% after her CABG by her primary event specialist food demonstrator. Even did an angiogram recently and were told that LV function was normal. ICD was discussed. If EF is not significantly changed, we will medically treated. Thank you for involving us with care of this patient. We will continue to follow. Please call with questions. Consult Attestations Medical Necessity Statement: Care expected to cross 2 midnights. Coding Level of Care Code Acute Code for [facility] Fwd Diagnoses CAD in [place] artery I25.10 ESRD (end stage renal disease) on dialysis N18.6; Z99.2 Troponin level elevated R77.8 Uncontrolled diabetes mellitus E11.65 Hypertension I10
[2022-11-16] MEDS: atorvastatin 40 mg Tablet PO (17:59)
[2022-11-16] MEDS: donepezil 5 MG Tablet 10 MG PO (20:45)
[2022-11-16 22:11] LABS: Glucose Point of Care 185 mg/dL (70-110)
[2022-11-17] VITALS (14 sets, daily range): BP systolic 119–149; BP diastolic 71–85; PULSE 67–95; RESP 16–24; TEMP 36.3–36.7; O2SAT 90–98; BMI 17.9
[2022-11-17] MEDS: ipratropium-albuterol 3 mL Neb INHALATION ×3 (02:11→19:31)
[2022-11-17 05:00] LABS: Basophils # 0.1 10^3/uL (0.0-0.1); Basophils % 0.6 %; Eosinophils # 0.1 10^3/uL (0.0-0.8); Eosinophils % 0.9 %; Hematocrit 36.9 % (37.0-47.0); Hemoglobin 11.3 g/dL (11.5-15.3); Mean Corpuscular HGB Conc 30.6 g/dL (30.0-36.0); Mean Corpuscular Volume 101.1 fl (81-99); Monocytes # 0.5 10^3/uL (0.2-0.9); Monocytes % 5.4 %; Neutrophils # 7.59 10^3/uL (1.8-7.7); Neutrophils % 81.8 %; Nucleated Red Blood Cells % 0.2 %; Platelet Count 417 10^3/cmm (130-400); Red Blood Count 3.65 10^6/uL (4.1-5.3); Red Cell Distribution Width 18.6 % (12.1-15.1); White Blood Count 9.3 10^3/uL (4.0-10.0)
[2022-11-17 05:15] LABS: Glucose Point of Care 137 mg/dL (70-110)
[2022-11-17 05:15] LABS: Glucose Point of Care 64 mg/dL (70-110)
[2022-11-17 05:24] LABS: Alanine Aminotransferase 55 U/L (0-33); Alkaline Phosphatase 638 U/L (35-105); Anion Gap 19.8 (5-19); Aspartate Amino Transferase 34 U/L (0-32); Blood Urea Nitrogen 38 mg/dL (8-23); Calcium 8.5 mg/dL (8.5-10.5); Carbon Dioxide 24 mmol/L (22-29); Chloride 95 mmol/L (98-107); Glomerular Filtration Rate 11.8 mL/min (90-130); Glucose 68 mg/dL (65-115); Osmolality Calculated 285 mOsm/kg (285-295); Potassium 4.8 mmol/L (3.5-5.1); Sodium 134 mmol/L (136-145); Total Bilirubin 0.3 mg/dL (0.15-1.2)
[2022-11-17] MEDS: pantoprazole DR 40 mg Tablet PO (06:07)
[2022-11-17] MEDS: venlafaxine ER (24HR) 150 mg Capsule PO (06:07)
[2022-11-17] MEDS: clopidogrel 75 mg Tablet PO (06:09)
[2022-11-17 07:47] LABS: Glucose Point of Care 189 mg/dL (70-110)
[2022-11-17] MEDS: ondansetron 2 mg/ML SDV 2 mL 4 MG IVP ×2 (09:13→20:19)
[2022-11-17] MEDS: losartan 50 mg Tablet PO (09:56)
[2022-11-17] MEDS: aspirin 81 mg Chew Tablet PO (09:58)
[2022-11-17] MEDS: carvedilol 12.5 mg Tablet PO ×2 (09:59→18:13)
[2022-11-17] MEDS: insulin glargine 100 units/1 mL 5 UNIT SUBCUT ×2 (10:07→18:14)
[2022-11-17] MEDS: levothyroxine 75 mcg Tablet 37.5 MCG PO (10:07)
[2022-11-17] MEDS: sevelamer 800 mg Tablet 1600 MG PO ×3 (10:08→20:19)
[2022-11-17] MEDS: metOLazone 5 MG Tablet PO (10:09)
[2022-11-17] MEDS: heparin drip 25,000 UNIT/500 ML PREMIX 13 UNIT IV (10:23)
[2022-11-17 11:59] LABS: Glucose Point of Care 276 mg/dL (70-110)
[2022-11-17] MEDS: insulin lispro 100 unit/1 mL SUBCUT ×2 (12:35→18:14)
--- NOTE | 2022-11-17 13:13 | PM.PN ---
Subjective Subjective: No acute events overnight. Patient denies any further chest pain. Denies shortness of breath. Complaining of nausea with 3 episodes of vomiting overnight. Not hungry. Heparin drip ordered was put in yesterday which has not been started yet 18 hours after original order was placed. Vitals/I&O/Wt Last Vital Signs Temp 97.8 F 11/17/22 12:00 Pulse 95 11/17/22 12:00 Resp 18 11/17/22 12:00 BP 144/79 11/17/22 12:00 Pulse Ox 98 11/17/22 12:00 O2 Del Method 11/17/22 12:00 O2 Flow Rate 3 11/17/22 08:59 11/16/22 11/17/22 11/17/22 22:59 06:59 14:59 Intake Total 300 / 300 Balance 300 / 300 Weight last 48 hrs Weight 44.452 kg Weight 45.955 kg Weight 45 kg Physical Exam Narrative: General: No acute distress, AO x3, chronically sick appearing, weak, on 4 L oxygen supplementation HEENT: PERRLA, pupils bilaterally equal and reactive Chest: Normal vesicular breath sounds, soft crackles bilaterally on lower up to mid lungs s, equal good air entry bilaterally CVS: S1-S2 regular, pansystolic murmur at apex, no tachycardia, no gallops, no rubs Abdomen: Soft, nontender, no organomegaly, bowel sounds present Neuro: No focal deficits, no facial deformity, AO x3, power 5/5 in all limbs Data 11/17/22 04:15 11/17/22 04:15 Micro: Microbiology 11/15/22 19:30 MRSA Culture - Final Nose 11/15/22 13:40 Blood Culture - Preliminary Blood NEGATIVE TO DATE 11/15/22 13:45 Blood Culture - Preliminary Blood NEGATIVE TO DATE A&P Assessment and plan (1) Generalized weakness: Multifactorial. In setting of uncontrolled diabetes mellitus, congestive heart failure in setting of new low EF, non-ST elevation MT, end-stage renal disease requiring emergent hemodialysis. Appreciate CTA chest and abdomen results. Cholecystitis ruled out. DKA ruled out. Patient has remained hemodynamically stable, afebrile without leukocytosis. Infectious cause less likely. We will hold off on any further antibiotics. Will monitor for changes in hemodynamics or fever. Follow-up blood cultures. COVID-19 PCR, flu negative. (2) NSTEMI (non-ST elevated myocardial infarction): Appreciate troponin cycles. Appreciate new low EF on echocardiogram. Patient is post CABG. Denies any chest pain. Cardiology consulted. Start on heparin drip. Continue with aspirin, statin, beta-shanthi, Plavix. Appreciate A1c, lipid panel results. (3) Acute and chronic respiratory failure with hypoxia: Most likely secondary to congestive heart failure exacerbation. Repeat echocardiogram done during this admission shows an EF of 20% with global LV hypokinesia, RVSP of 40 mmHg, abnormal diastolic function. Continue with aggressive IV diuresis in a patient with end-stage renal disease. Continue with home dose of metolazone. Continue with IV Lasix 80 mg daily. Dialysis as per nephrology on scheduled session of TTF (4) End-stage renal disease needing dialysis: Nephrology consult. Hemodialysis as per outpatient sessions (5) Acute on chronic diastolic CHF (congestive heart failure): Strict input strict input output charting. Daily weights. Further treatment as above. (6) Uncontrolled diabetes mellitus: With history of DKA. A1c 9.5. Highly fluctuant blood sugars. Blood sugars dropping down to high 50s early in the morning. For now continue with Lantus 5 units twice daily. Changed insulin sliding scale before meals and at bedtime at moderate dose protocol. (7) Hypertension: Goal blood pressure less than 140/90 mmHg. Continue home dose of carvedilol. Switch home dose of amlodipine to losartan 50 mg oral daily. Uptitrate as per goals. (8) CAD in [place] artery: Denies chest pain. Troponin cycle appreciated. Concerns for non-ST elevation MT. Echocardiogram results appreciated. Heparin drip and cardiology consult as above. (9) High anion gap metabolic acidosis: (10) Transaminitis: (11) Elevated alkaline phosphatase level: With history of dilated gallbladder along with cholelithiasis. Liver ultrasound rule out cholecystitis. Continue to monitor. (12) Hyperkalemia: Resolved. Plan Full code. Renal dialysis diabetic diet. Heparin drip will suffice as DVT prophylaxis Protonix for PUD prophylaxis Analgesia: Tylenol as needed Glycemic control: Lantus 5 units twice daily, sliding scale at moderate dose protocol before meals and at bedtime Nutrition: Renal dialysis diabetic diet CODE STATUS: Full code PUD prophylaxis: Protonix DVT prophylaxis: Heparin drip Plan for the day: Start heparin drip. Plan for continuing heparin drip for 48 hours. Appreciate cardiology recommendations. 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 Patient did have angiogram done in last 1 year at outside hospital. We will await EF and findings before making plans for angiogram currently. Continue to hold antibiotics and monitor for fever or leukocytosis. Goal blood pressure less than 140/90. Continue with home antihypertensives. Amlodipine changed to losartan 50 mg. Will uptitrate as per goals. Monitor BMP. Plan for dialysis as per nephrology. Continue with donepezil and home dose of Effexor. Again on review of BMP it seems her morning blood sugar was in 50s. Patient having extremely labile blood sugars. Continue with Lantus 5 units twice daily. Hold off on insulin at bedtime. Continue with moderate dose protocol before meals. Goals of care: Discussed in detail with patient at bedside. We discussed that unfortunately patient has end-stage renal disease on hemodialysis with a newly found a EF of around 20% in a patient with recent CABG. We discussed that there is a high chance of mortality and morbidity. Discussed that unfortunately it is possible that she will require a cardiac angiogram and further treatment with PCI. We discussed even as outpatient she will need to follow-up with multiple providers, dialysis regularly along with medications. Also discussed that it has been mentioned to the primary team by the daughter that patient seems detached and not wanting treatment and improved with few statements made stating that she would rather be comfortable nasal travel back and forth for treatments. Patient verbalized understanding and would want to continue the active treatment which she is on right now. She wants to remain full code. She wants aggressive treatment if and when needed necessary. Discharge planning: Home with caregiver once medically stable. [facility] floor with telemetry. Patient's care discussed in detail with patient at bedside and her daughter over the phone. This documentation was created by [employer] medical billing supervisor software. Every effort was made to ensure accuracy of medical billing supervisor. Any obvious errors or omissions should be clarified with the author of the document. Attestations Medical Necessity Statement*: Requires further hospitalization for management of congestive heart failure with EF of 20%, non-ST elevation MT in a patient who is post CABG with end-stage renal disease on hemodialysis and High Time for a total of 50 minutes, includes reviewing past or interval history, examining/interviewing patient, placing orders, counseling patient/family/other support, updating patient/family/other support, discussing plan of care with staff, communicating with other healthcare providers, documenting encounter and coordinating care Diagnoses Generalized weakness R53.1 NSTEMI (non-ST elevated myocardial infarction) I21.4 Acute and chronic respiratory failure with hypoxia J96.21 End-stage renal disease needing dialysis N18.6; Z99.2 Acute on chronic diastolic CHF (congestive heart failure) I50.33 Uncontrolled diabetes mellitus E11.65 Hypertension I10 CAD in [place] artery I25.10 High anion gap metabolic acidosis E87.29 Transaminitis R74.01 Elevated alkaline phosphatase level R74.8 Hyperkalemia E87.5
--- NOTE | 2022-11-17 14:01 | P.PN_ITS ---
Subjective Subjective: Still awaiting records but patient's daughter is at bedside today. She says that patient was found to have a low EF post CABG and they were told EF is 25-30% with discussion regarding ICD. Patient is chest pain free. Had nausea and vomitting that are not new Vitals/I&O/Wt Last Vital Signs Temp 97.8 F 11/17/22 12:00 Pulse 95 11/17/22 12:00 Resp 18 11/17/22 12:00 BP 144/79 11/17/22 12:00 Pulse Ox 98 11/17/22 12:00 O2 Del Method 11/17/22 12:00 O2 Flow Rate 3 11/17/22 08:59 11/16/22 11/17/22 11/17/22 22:59 06:59 14:59 Intake Total 300 / 300 Balance 300 / 300 Weight last 48 hrs Weight 98 lb Weight 101 lb 5 oz Weight 99 lb 3.328 oz Physical Exam Narrative: GENERAL: Patient is alert, awake and oriented x3. [] NECK: No jugular vein distension. [] HEENT: No cyanosis. No icterus. No pallor. [] HEART: Regular S1 and S2. No murmur, rub or gallop. [] LUNGS: Clear to auscultate bilaterally. [] CENTRAL NERVOUS SYSTEM: Grossly nonfocal. [] EXTREMITIES: Lower extremities with 1+ edema bilaterally. Pulses palpable in the lower extremities, both dorsalis pedis and posterior tibial. [] Data 11/17/22 04:15 11/17/22 04:15 Micro: Microbiology 11/15/22 19:30 MRSA Culture - Final Nose 11/15/22 13:40 Blood Culture - Preliminary Blood NEGATIVE TO DATE 11/15/22 13:45 Blood Culture - Preliminary Blood NEGATIVE TO DATE A&P Assessment and plan (1) CAD in [place] artery: (2) ESRD (end stage renal disease) on dialysis: (3) Troponin level elevated: (4) Uncontrolled diabetes mellitus: (5) Hypertension: Plan Patient has presented with atypical symptoms. Troponins have not trended up significantly. Likely secondary to demand ischemia. Continue aspirin and Plavix. Awaiting records from cardiology office. We will manage medically as from h istory does not appear that drop in EF is new and she is chest pain free. Had an angiogram per daughter in the last few months. Thank you for involving us with care of this patient. Please call with questions. Attestations Medical Necessity Statement*: Care expected to cross 2 midnights. Coding Level of Care Code Acute Code for g Fwd Diagnoses CAD in [place] artery I25.10 ESRD (end stage renal disease) on dialysis N18.6; Z99.2 Troponin level elevated R77.8 Uncontrolled diabetes mellitus E11.65 Hypertension I10
--- NOTE | 2022-11-17 14:09 | PM.PN ---
Subjective Subjective: no acute events s/p HD yesterday early Am Medications: Reviewed: Yes Vitals/I&O/Wt Last Vital Signs Temp 97.8 F 11/17/22 12:00 Pulse 95 11/17/22 12:00 Resp 18 11/17/22 12:00 BP 144/79 11/17/22 12:00 Pulse Ox 98 11/17/22 12:00 O2 Del Method 11/17/22 12:00 O2 Flow Rate 3 11/17/22 08:59 11/16/22 11/17/22 11/17/22 22:59 06:59 14:59 Intake Total 420 / 420 Balance 420 / 420 Weight last 48 hrs Weight 44.452 kg Weight 45.955 kg Weight 45 kg Physical Exam Narrative: Patient is awake alert, no acute distress, HEENT, clear to auscultation per report, S1-S2 regular rate and rhythm per report, no pedal edema per report Data 11/17/22 04:15 11/17/22 04:15 Micro: Microbiology 11/15/22 19:30 MRSA Culture - Final Nose 11/15/22 13:40 Blood Culture - Preliminary Blood NEGATIVE TO DATE 11/15/22 13:45 Blood Culture - Preliminary Blood NEGATIVE TO DATE A&P Assessment and plan (1) ESRD (end stage renal disease) on dialysis: Plan 1. End-stage renal disease: On TTS schedule as outpatient, patient presented with hyperkalemia and volume overload, status post hemodialysis early Am yesterday. We will plan on next dialysis tomorrow Am 2. Hyperkalemia: Potassium was 6.1 on presentation, improved now 3. History of CHF with reduced ejection fraction, ultrafiltration with HD as above 4. Hyponatremia: Mild, monitor 5. Anemia: Secondary to ESRD, hemoglobin was 10.5,, monitor 6. Elevated alk phos level: Work-up in progress per primary team 7. NSTEMI : On heparin gtt , cardiology following Patient evaluated using audiovisual cart. Time spent 30 minutes Attestations Medical Necessity Statement*: Requires further hospitalization for management of congestive heart failure with EF of 20%, non-ST elevation AR in a patient who is post CABG with end-stage renal disease on hemodialysis Coding Level of Care Code Acute Code for [facility] Fwd Diagnoses ESRD (end stage renal disease) on dialysis N18.6; Z99.2
[2022-11-17] MEDS: FUROsemide 10 mg/mL SDV 10mL 80 MG IVP (14:30)
[2022-11-17 16:59] LABS: Partial Thromboplastin Time 46.7 SECONDS (23.9-36.7)
[2022-11-17 17:03] LABS: Glucose Point of Care 172 mg/dL (70-110)
[2022-11-17] MEDS: docusate sodium 100 mg Capsule PO (18:13)
[2022-11-17] MEDS: atorvastatin 40 mg Tablet PO (18:13)
[2022-11-17] MEDS: budesonide 0.5 mg/2 mL Neb INHALATION (19:31)
[2022-11-17] MEDS: donepezil 5 MG Tablet 10 MG PO (20:19)
[2022-11-17 21:28] LABS: Glucose Point of Care 107 mg/dL (70-110)
[2022-11-17] MEDS: LORazepam 1 mg Tablet PO (21:41)
[2022-11-17 23:36] LABS: Partial Thromboplastin Time 61.3 SECONDS (23.9-36.7)
[2022-11-18] VITALS (10 sets, daily range): BP systolic 107–160; BP diastolic 22–99; PULSE 74–85; RESP 13–16; TEMP 36.2–36.7; O2SAT 91–98
[2022-11-18] MEDS: ipratropium-albuterol 3 mL Neb INHALATION (01:54)
[2022-11-18 02:28] LABS: Glucose Point of Care 160 mg/dL (70-110)
[2022-11-18 05:33] LABS: Basophils % 0.5 %; Eosinophils # 0.2 10^3/uL (0.0-0.8); Eosinophils % 2.3 %; Hematocrit 37.8 % (37.0-47.0); Hemoglobin 11.8 g/dL (11.5-15.3); Lymphocytes # 1.4 10^3/uL (0.8-4.8); Lymphocytes % 16.3 %; Mean Corpuscular HGB Conc 31.2 g/dL (30.0-36.0); Mean Corpuscular Hemoglobin 31.2 pg (28.0-34.0); Monocytes # 0.6 10^3/uL (0.2-0.9); Monocytes % 6.7 %; Neutrophils # 6.23 10^3/uL (1.8-7.7); Neutrophils % 73.8 %; Nucleated Red Blood Cells % 0.4 %; Platelet Count 414 10^3/cmm (130-400); Red Blood Count 3.78 10^6/uL (4.1-5.3); Red Cell Distribution Width 18.6 % (12.1-15.1); White Blood Count 8.4 10^3/uL (4.0-10.0)
[2022-11-18 05:54] LABS: Alanine Aminotransferase 42 U/L (0-33); Albumin Level 2.8 g/dL (3.5-5.2); Alkaline Phosphatase 567 U/L (35-105); Anion Gap 19.7 (5-19); Aspartate Amino Transferase 24 U/L (0-32); Blood Urea Nitrogen 42 mg/dL (8-23); Calcium 8.3 mg/dL (8.5-10.5); Carbon Dioxide 25 mmol/L (22-29); Chloride 95 mmol/L (98-107); Globulin 2.8 g/dL (1.3-4.6); Glomerular Filtration Rate 9.7 mL/min (90-130); Glucose 104 mg/dL (65-115); Osmolality Calculated 289 mOsm/kg (285-295); Potassium 5.7 mmol/L (3.5-5.1); Sodium 134 mmol/L (136-145); Total Bilirubin 0.2 mg/dL (0.15-1.2); Total Protein 5.6 g/dL (6.6-8.7)
[2022-11-18] MEDS: clopidogrel 75 mg Tablet PO (06:07)
[2022-11-18] MEDS: venlafaxine ER (24HR) 150 mg Capsule PO (06:07)
[2022-11-18] MEDS: pantoprazole DR 40 mg Tablet PO (06:07)
[2022-11-18 06:45] LABS: Glucose Point of Care 138 mg/dL (70-110)
[2022-11-18] MEDS: aspirin 81 mg Chew Tablet PO (10:51)
[2022-11-18] MEDS: losartan 50 mg Tablet PO (10:51)
[2022-11-18] MEDS: carvedilol 12.5 mg Tablet PO (10:51)
[2022-11-18] MEDS: metOLazone 5 MG Tablet PO (10:51)
[2022-11-18] MEDS: sevelamer 800 mg Tablet 1600 MG PO (10:52)
[2022-11-18] MEDS: docusate sodium 100 mg Capsule PO (10:52)
[2022-11-18] MEDS: insulin glargine 100 units/1 mL 5 UNIT SUBCUT (10:52)
[2022-11-18] MEDS: levothyroxine 75 mcg Tablet 37.5 MCG PO (10:52)
[2022-11-18 11:06] LABS: Glucose Point of Care 124 mg/dL (70-110)
--- NOTE | 2022-11-18 11:35 | PM.PN ---
Subjective Subjective: getting HD Medications: Reviewed: Yes Vitals/I&O/Wt Last Vital Signs Temp 98.1 F 11/18/22 10:45 Pulse 85 11/18/22 10:45 Resp 16 11/18/22 10:45 BP 160/99 11/18/22 10:51 Pulse Ox 91 11/18/22 04:00 O2 Del Method 11/18/22 04:00 O2 Flow Rate 3 11/18/22 01:55 11/17/22 11/18/22 11/18/22 22:59 06:59 14:59 Intake Total 439.517 / 859.517 120 / 979.517 300 / 300 Output Total 3300 / 3300 Balance 439.517 / 859.517 120 / 979.517 -3000 / -3000 Weight last 48 hrs Weight 43.7 kg Weight 45.586 kg Weight 44.452 kg Physical Exam Narrative: Patient is awake alert, no acute distress, HEENT, clear to auscultation per report, S1-S2 regular rate and rhythm per report, no pedal edema per report Data 11/18/22 05:03 11/18/22 05:03 A&P Assessment and plan (1) ESRD (end stage renal disease) on dialysis: Plan 1. End-stage renal disease: On TTS schedule as outpatient, patient presented with hyperkalemia and volume overload, status post hemodialysis early Am SUNDAY , . Getting hD again today 2. Hyperkalemia: Potassium was 6.1 on presentation, improved now 3. History of CHF with reduced ejection fraction, ultrafiltration with HD as above 4. Hyponatremia: Mild, monitor 5. Anemia: Secondary to ESRD, hemoglobin was 10.5,, monitor 6. Elevated alk phos level: Work-up in progress per primary team 7. NSTEMI : , cardiology following Patient evaluated using audiovisual cart. Time spent 30 minutes Attestations Medical Necessity Statement*: Requires further hospitalization for management of congestive heart failure with EF of 20%, non-ST elevation LA in a patient who is post CABG with end-stage renal disease on hemodialysis Coding Level of Care Code Acute Code for [facility] Fwd Diagnoses ESRD (end stage renal disease) on dialysis N18.6; Z99.2
[2022-11-18 11:44] LABS: Partial Thromboplastin Time 146.6 SECONDS (23.9-36.7)
--- NOTE | 2022-11-18 12:07 | P.DS_ITS ---
Discharge Providers Date of Admission: 11/15/22 16:17 Date of Discharge: November 18, 2022 Attending Provider at Admission: Geovanni Fleming MD Attending Provider at Discharge: Geovanni Fleming MD Primary Care Provider: Zenon De Los Santos MD Diagnoses at Discharge Discharge Diagnosis (1) ESRD (end stage renal disease) on dialysis: Status: Acute (2) Generalized weakness: Status: Acute (3) High anion gap metabolic acidosis: Status: Acute (4) Acute and chronic respiratory failure with hypoxia: Status: Acute (5) End-stage renal disease needing dialysis: Status: Acute (6) Hyperkalemia: Status: Acute (7) CAD in [place] artery: Status: Acute (8) Troponin level elevated: Status: Acute (9) Elevated alkaline phosphatase level: Status: Acute (10) Transaminitis: Status: Acute (11) Uncontrolled diabetes mellitus: Status: Acute (12) Acute on chronic diastolic CHF (congestive heart failure): Status: Acute Permanent problem details: Echocardiogram 11/30 shows EF of 20% with global LV hypokinesia, RVSP of 40, abnormal diastolic functions Reason for Visit Reason for Visit: SOB Brief History: Cony Temple is a 67 year old female with past medical history of end-stage renal disease on hemodialysis on TTF, coronary artery disease, congestive systolic heart failure EF of 45%, uncontrolled type 2 diabetes mellitus with history of DKA in the past, hypertension who presents to the ER today because of not feeling well and generalized weakness getting worse for last 2 to 3 days.? Patient at baseline is on 2 L of oxygen supplementation but currently requiring 5 L.? Otherwise she denies any nausea, vomiting, diarrhea, fever, sick contacts, difficulty breathing more than baseline.? Did undergo dialysis yesterday.? As per her she was able to complete the whole session. On examination in the ER patient was made comfortably in bed on 4 L oxygen supplementation with vitals blood pressure 140 over 80 mmHg. Blood work showed white count of 7.7, hemoglobin of 10.5 which is at baseline, ABG showing a pH of 7.3, PCO2 of 42 and PO2 of 60.6 on 4 L, chemistry showing a sodium of 132, potassium of 6.1, creatinine of 4.7, BUN of 58 with anion gap of 56, blood sugar of 359, AST/ALT of 124/89, alkaline phosphatase of 797, baseline troponin of 143 with proBNP of more than 70,000 Hospital Course Hospital Course Patient was admitted to the hospital further evaluation and management of generalized weakness. It is believed her symptoms are multifactorial in setting of uncontrolled diabetes mellitus, congestive heart failure in setting of new low EF of around 20% with elevated troponin and noncompliance to hemodialysis and blood pressure medications. On admission pulmonary embolism, cholecystitis and DKA were ruled out. Nephrology was consulted and she underwent extra session of dialysis after which her difficulty in breathing improved. Echocardiogram was done which showed a new low EF of around 20% with global LV hypokinesia with RVSP of 40 mmHg and abnormal diastolic functions. Cardiology was consulted. It is believed her elevated troponins on admission is most likely in setting of type II SD. Patient was transiently on heparin drip which was later discontinued as per cardiology recommendations. As per patient's family patient did have echocardiogram and cardiac angiogram with her primary high school assistant football coach as an outpatient in last 1 year when her EF was also found to be on 25 to 30%. It is decided that a new cardiac angiogram will not help much as her EF has not changed much from her previous last known EF. Patient's symptoms improved. She remained hemodynamically stable and afebrile. During hospitalization patient did have few episodes of hypoglycemia for which her home dose of insulin was adjusted. During hospitalization there were concerns of depression. Patient started on donepezil and she was agreeable and started feeling better. Goals of care were discussed in detail with patient at bedside. Options discussed about possible hospice given severe congestive heart failure, s/p CABG, end-stage renal disease on hemodialysis versus continuation of aggressive complete treatment to improve quality of life. Patient wants to continue active treatment measures. Given the above information after discussion with the family patient was discharged back home with advised to follow-up with a primary high school assistant football coach. Patient is to follow-up with a primary care provider also within next 1 week. Her dose of amlodipine has been changed to losartan 50 mg oral daily. She is to continue taking her metolazone and torsemide as before. There is a concern for depression and patient is agreeable to start on medications and she has been discharged on donepezil 10 mg oral daily. She is to continue taking her Basaglar at 5 units twice daily. She is to take NovoLog premeals as per low-dose protocol sliding scale which has been provided to the patient. Physical Exam Narrative: General: No acute distress, AO x3, looking better, able to have complete conversation without difficulty in breathing. Saturating more than 95% on 3 L HEENT: PERRLA, pupils bilaterally equal and reactive Chest: Normal vesicular breath sounds, soft crackles bilaterally on lower up to mid lungs s, equal good air entry bilaterally CVS: S1-S2 regular, pansystolic murmur at apex, no tachycardia, no gallops, no rubs Abdomen: Soft, nontender, no organomegaly, bowel sounds present Neuro: No focal deficits, no facial deformity, AO x3, power 5/5 in all limbs Discharge Data Studies Completed and Pending Completed Studies During Hospitalization Category Date Time Status CT angio chest w abd pel w con Stat Cat Scan 11/15/22 16:14 Completed XR chest 1V portable [id number] Stat Exams 11/15/22 12:51 Completed CV. echo complete* [id number] Routine Ultrasound 11/15/22 17:12 Completed US gall bladder [id number] Stat Ultrasound 11/15/22 17:09 Completed Pending at discharge Category Date Time Status Bacterial Antigen Stat Lab 11/15/22 16:43 Ordered Blood Culture Stat Lab 11/15/22 13:40 Results Drug Screen, Urine Stat Lab 11/15/22 16:43 Uncollected Legionella Antigen STAT Routine Lab 11/15/22 17:12 Uncollected PTT [Partial Thromboplastin Time] Timed Lab 11/18/22 11:06 Received Platelet Count Q2D Lab 11/20/22 04:00 Ordered Urinalysis Routine Lab 11/15/22 17:12 Uncollected Radiology Impressions Chest X-Ray 11/15/22 12:51 IMPRESSION: 1. Increased loculated right pleural effusion since 10/17/2022. 2. Stable large left pleural effusion. 3. Stable nonspecific bilateral lower lung opacity. Some component of atelectasis is present. Superimposed infection or edema is not excluded. Chest/Abdomen/Pelvis CT 11/15/22 16:14 IMPRESSION: 1. Negative for pulmonary embolus. 2. Large bilateral loculated effusions. 3. Cardiomegaly. 4. Sternotomy wires. 5. Coronary artery atherosclerotic calcifications. 6. Patchy bilateral airspace infiltrates. 7. T12 vertebral body compression deformity without retropulsion of bony fragments. IMPRESSION: 1. Negative for acute inflammatory process in the abdomen or pelvis. 2. Gallbladder sludge. 3. Left kidney cyst, negative for follow up if advised. 4. Right ovary 3.4 cm cyst. 5. Fibroid uterus. 6. Gallbladder sludge. 7. Left kidney cyst, negative for follow up if advised. 8. Right ovary 3.4 cm cyst. 9. Fibroid uterus. 10. Chronic left anterior acetabular and inferior pubic rami as well as left pubic fractures. 11. Bilateral punctate nonobstructing renal calyceal stones. COMMENTS: Consistent with the [employer]'s Incidental Findings Committee white paper (J Am Lalo Radiol 2018): Any incidental renal lesion less than 1 cm or classified as too small to characterize, or any incidental cystic renal lesion characterized as simple-appearing, is likely benign. No follow-up imaging is recommended for these lesions per consensus recommendations based on imaging criteria. Gallbladder Ultrasound 11/15/22 17:09 IMPRESSION: 1. Gallbladder sludge, negative for cholecystitis. 2. Several right kidney cysts measuring up to 10 mm. 3. Several right kidney punctate nonobstructing calyceal stones. 4. Right-sided pleural effusion somewhat visualized. 5. Small amount of ascites seen in the right abdomen. 6. Liver mildly enlarged to 17 cm with mild hepatic steatosis. Echocardiogram: CONCLUSIONS ?1. Dilated left ventricle. Severely decreased left ventricular ?systolic function. Left ventricular ejection fraction is ?estimated at 20 %. Severe global left ventricular hypokinesis.? ?Abnormal diastolic function. ?2. When compared to study dated 08/30/2021, left ventrciular ?systolic function has decreased. ?Darby Leung MD ?(Electronically Signed) ?Final Date:? ? ? 16 November 2022 ? 10:16 Laboratory Results WBC 8.4 10^3/uL (4.0-10.0) 11/18/22 05:03 RBC 3.78 10^6/uL (4.1-5.3) L 11/18/22 05:03 Hgb 11.8 g/dL (11.5-15.3) 11/18/22 05:03 Hct 37.8 % (37.0-47.0) 11/18/22 05:03 MCV 100.0 fl (81-99) H 11/18/22 05:03 MCH 31.2 pg (28.0-34.0) 11/18/22 05:03 MCHC 31.2 g/dL (30.0-36.0) 11/18/22 05:03 RDW 18.6 % (12.1-15.1) H 11/18/22 05:03 Plt Count 414 10^3/cmm (130-400) H 11/18/22 05:03 MPV 10.0 fL (7.4-10.4) 11/18/22 05:03 Neut % (Auto) 73.8 % 11/18/22 05:03 Lymph % (Auto) 16.3 % 11/18/22 05:03 [place] % (Auto) 6.7 % 11/18/22 05:03 Eos % (Auto) 2.3 % 11/18/22 05:03 Baso % (Auto) 0.5 % 11/18/22 05:03 Neut # (Auto) 6.23 10^3/uL (1.8-7.7) 11/18/22 05:03 Lymph # (Auto) 1.4 10^3/uL (0.8-4.8) 11/18/22 05:03 [place] # (Auto) 0.6 10^3/uL (0.2-0.9) 11/18/22 05:03 Eos # (Auto) 0.2 10^3/uL (0.0-0.8) 11/18/22 05:03 Baso # (Auto) 0.0 10^3/uL (0.0-0.1) 11/18/22 05:03 Nucleated RBC % (auto) 0.4 % 11/18/22 05:03 Nucleated RBCs # 0.0 /100WBC 11/18/22 05:03 APTT 56.0 SECONDS (23.9-36.7) H 11/18/22 05:03 Specimen Type Arterial 11/15/22 13:20 Sample Site Brachial, right 11/15/22 13:20 ABG pH 7.38 (7.35-7.45) 11/15/22 13:20 ABG pCO2 42.9 mmHg (35-45) 11/15/22 13:20 ABG pO2 60.6 mmHg (80.0-100.0) L 11/15/22 13:20 ABG HCO3 25.2 mmol/L (22-26) 11/15/22 13:20 ABG Base Excess -0.1 mmol/L (-2.0-2.0) 11/15/22 13:20 Tj Test Pos 11/15/22 13:20 Hematocrit 34.3 % (37-47) L 11/15/22 13:20 Hgb O2 Saturation 88.1 % (95-100) L 11/15/22 13:20 Carboxyhemoglobin 2.3 %THgb (0.4-20.1) 11/15/22 13:20 Methemoglobin 0.5 % (0.4-1.5) 11/15/22 13:20 Total Hemoglobin 11.2 g/dL (12-16) L 11/15/22 13:20 O2 Delivery Device Nc 11/15/22 13:20 O2 Liters/Min 4.0 % 11/15/22 13:20 FiO2 36.0 % 11/15/22 13:20 Open Hearth Laborer ID glc 11/15/22 13:20 Sodium 134 mmol/L (136-145) L 11/18/22 05:03 Potassium 5.7 mmol/L (3.5-5.1) H 11/18/22 05:03 Chloride 95 mmol/L (98-107) L 11/18/22 05:03 Carbon Dioxide 25 mmol/L (22-29) 11/18/22 05:03 Anion Gap 19.7 (5-19) H 11/18/22 05:03 BUN 42 mg/dL (8-23) H 11/18/22 05:03 Creatinine 4.5 mg/dL (0.5-0.9) H 11/18/22 05:03 GFR Calculation 9.7 mL/min (90-130) L 11/18/22 05:03 Glucose 104 mg/dL (65-115) 11/18/22 05:03 POC Glucose 124 mg/dL (70-110) H 11/18/22 10:54 Estimat Average Glucose 226 11/16/22 05:22 Hemoglobin A1c 9.5 % (4.0-6.0) H 11/16/22 05:22 Calculated Osmolality 289 mOsm/kg (285-295) 11/18/22 05:03 Lactic Acid 1.6 mmol/L (0.5-2.2) 11/15/22 17:03 Calcium 8.3 mg/dL (8.5-10.5) L 11/18/22 05:03 Phosphorus 2.9 mg/dL (2.5-4.5) 11/16/22 05:22 Magnesium 2.0 mg/dL (1.7-2.3) 11/16/22 05:22 Iron 46 ug/dL (37-145) 11/15/22 16:19 TIBC 222 mcg/dl 11/15/22 16:19 % Saturation 20.7 % (20-50) 11/15/22 16:19 Unsat Iron Binding 176 ug/dL (112-347) 11/15/22 16:19 Total Bilirubin 0.2 mg/dL (0.15-1.2) 11/18/22 05:03 AST 24 U/L (0-32) 11/18/22 05:03 ALT 42 U/L (0-33) H 11/18/22 05:03 Alkaline Phosphatase 567 U/L (35-105) H 11/18/22 05:03 Troponin T Baseline 143 ng/L (0-10) H* 11/15/22 13:45 Troponin T 120 Minute 161.7 ng/L (0-10) H 11/15/22 16:19 Delta Troponin T 18.7 ABS# (0-10) H* 11/15/22 16:19 Troponin T Hi Sens 6Hr 139.4 ng/L (0-10) H 11/15/22 19:50 Troponin T Hi Sens 6Hr Delta -3.6 ng/L (0-12) L 11/15/22 19:50 NT-Pro-B Natriuret Pep > 89024 pg/mL (0-125) H 11/15/22 13:45 Total Protein 5.6 g/dL (6.6-8.7) L 11/18/22 05:03 Albumin 2.8 g/dL (3.5-5.2) L 11/18/22 05:03 Globulin 2.8 g/dL (1.3-4.6) 11/18/22 05:03 Triglycerides 109 mg/dL (0-150) 11/16/22 05:22 Cholesterol 198 mg/dL (0-200) 11/16/22 05:22 LDL Cholesterol, Calc 111 mg/dL (50-129) 11/16/22 05:22 Total VLDL Cholesterol 22 mg/dL (0-30) 11/16/22 05:22 HDL Cholesterol 65 mg/dL (60-100) 11/16/22 05:22 Cholesterol/HDL Ratio 3.05 mg/dL (0.0-4.40) 11/16/22 05:22 Vitamin B12 1205 pg/mL (232-1245) 11/15/22 16:19 Folate > 20.0 ng/mL (4.8-37.3) 11/15/22 16:19 TSH 8.89 uIU/mL (0.27-4.20) H 11/15/22 13:45 Free T4 0.99 ng/dL (0.82-1.77) 11/16/22 05:22 Free T3 1.0 PG/ML (2.0-4.4) L 11/16/22 05:22 Serum Ketones Negative (Negative) 11/15/22 13:45 Coronavirus 229E (PCR) Not detected (NOT DETECT) 11/15/22 13:20 SARS-CoV-2 (PCR) Not detected (NOT DETECT) 11/15/22 13:20 Vitals Last Vital Signs Temp 98.1 F 11/18/22 10:45 Pulse 85 11/18/22 10:45 Resp 16 11/18/22 10:45 BP 160/99 11/18/22 10:51 Pulse Ox 91 11/18/22 04:00 O2 Del Method 11/18/22 04:00 O2 Flow Rate 3 11/18/22 01:55 Discharge Plan Discharge Patient Disposition: Home Condition: Stable Prescriptions: New losartan 50 mg Tablet 50 mg PO DAILY Qty: 30 0RF donepezil 5 mg Tablet 10 mg PO BEDTIME Qty: 60 0RF Continued pantoprazole 40 mg Tablet,Delayed Release (Dr/Ec) 40 mg PO QAM insulin aspart U-100 [Novolog FlexPen U-100 Insulin] 100 unit/mL (3 mL) Insulin Pen See Rx Instructions .ROUTE .COMPLEX Rx Instructions: per sliding scale three to five times a day venlafaxine 150 mg capsule,extended release 24hr 150 mg PO QAM torsemide 100 mg tablet 100 mg PO QAM sevelamer carbonate 800 mg tablet 1,600 mg PO TID metolazone 5 mg tablet 5 mg PO DAILY calcium carbonate-vitamin D3 600 mg-10 mcg (400 unit) Tablet 1 ea PO BID 30 Days Qty: 60 0RF hydrocodone-acetaminophen 5-325 mg tablet 1 tab PO Q6H PRN (Reason: pain) 7 Days Qty: 28 0RF aspirin 81 mg Tablet,Chewable 81 mg PO DAILY lorazepam 1 mg Tablet 1 mg PO TID PRN (Reason: Anxiety) Basaglar KwikPen U-100 Insulin 100 unit/mL (3 mL) insulin pen 5 unit SUBCUT BID atorvastatin 40 mg Tablet 40 mg PO QPM carvedilol 12.5 mg Tablet 12.5 mg PO BID Rx Instructions: must administer with a meal/food clopidogrel 75 mg Tablet 75 mg PO QAM levothyroxine 75 mcg Tablet 37.5 mcg PO DAILY RenaPlex-D 800 mcg-12.5 mg -2,000 unit Tablet 1 tab PO QAM Discontinued amlodipine 10 mg Tablet 10 mg PO BEDTIME Discharge Orders: Discharge Order (Routine); Ordered 11/18/22 Ordered By: Geovanni Fleming Referrals: Zenon De Los Santos MD [Primary Care Provider] - (PLEASE CALL YOUR PCP TO SET UP A FOLLOW-UP APPOINTMENT IN WEEK. ) Discharge Diet: Cardiac and Diabetic Discharge Activity: Resume usual activity and Increase activity as tolerated Patient Instructions: Type 2 Diabetes, Losartan (By mouth), Donepezil (By mouth), Heart Attack (DC), Heart Healthy Diet (DC), End Stage Kidney Disease (DC), Opioid Safety Activity Restrictions/Additional Instructions: Please follow-up with the primary care provider within next 1 week. Please follow-up with your outpatient high school assistant football coach also within next 1 week. Amlodipine has been stopped. Instead of amlodipine losartan 50 mg daily has been added. Continue taking Basaglar 5 units twice daily. Take NovoLog premeals as per low- dose protocol insulin sliding scale which has been provided to you. Do not take NovoLog prior to sleeping at night. Please continue taking your medications as scheduled and following up with dialysis at scheduled. Discharge Attestations Time Spent in Discharge Care*: greater than 30 min Specific Discharge Activities: educating patient, educating and/or supporting family/caregiver, discussing with mattress spring encaser/social workers/dc planners, documenting/other paperwork and evaluating patient/reviewing data Status at Discharge: Cognitive status at discharge: cognitively intact , Behavioral status at discharge: cooperative , Functional status at discharge: uses cane/walker , Overall status at discharge: patient is back to baseline Quality Metrics Clinical Quality Measures [ No reported AMI, CVA or VTE this stay] Coding Level of Care Code 95026 Diagnoses ESRD (end stage renal disease) on dialysis N18.6; Z99.2 Generalized weakness R53.1 High anion gap metabolic acidosis E87.29 Acute and chronic respiratory failure with hypoxia J96.21 End-stage renal disease needing dialysis N18.6; Z99.2 Hyperkalemia E87.5 CAD in [place] artery I25.10 Troponin level elevated R77.8 Elevated alkaline phosphatase level R74.8 Transaminitis R74.01 Uncontrolled diabetes mellitus E11.65 Acute on chronic diastolic CHF (congestive heart failure) I50.33
== END 2022-11-18 15:47 | disposition home health service (06) | DRG 280 ==
LOC: ER 16:27 → MEDSURG 19:38
PROVIDERS: Admitting Provider Student in an Organized Health Care Education/Training Program; Emergency Provider Emergency Medicine; PCP Internal Medicine; Visit Provider Student in an Organized Health Care Education/Training Program
DX: I13.2 Hypertensive heart and chronic kidney disease with heart failure and with stage 5 chronic kidney disease, or end stage renal disease (principal); I21.A1 Myocardial infarction type 2; I50.23 Acute on chronic systolic (congestive) heart failure; N18.6 End stage renal disease; E87.1 Hypo-osmolality and hyponatremia; E87.20 Acidosis, unspecified; E11.22 Type 2 diabetes mellitus with diabetic chronic kidney disease; Z99.2 Dependence on renal dialysis; Z91.15 Patient's noncompliance with renal dialysis; E11.65 Type 2 diabetes mellitus with hyperglycemia; E11.43 Type 2 diabetes mellitus with diabetic autonomic (poly)neuropathy; K31.84 Gastroparesis; I25.10 Atherosclerotic heart disease of native coronary artery without angina pectoris; Z95.1 Presence of aortocoronary bypass graft; F32.A Depression, unspecified; Z79.4 Long term (current) use of insulin; Z79.891 Long term (current) use of opiate analgesic; Z79.82 Long term (current) use of aspirin; Z79.02 Long term (current) use of antithrombotics/antiplatelets; K21.9 Gastro-esophageal reflux disease without esophagitis; E78.5 Hyperlipidemia, unspecified; E87.5 Hyperkalemia; D63.1 Anemia in chronic kidney disease; E03.9 Hypothyroidism, unspecified
CPT/HCPCS: 12345; 36415; 36416; 36600; 71045; 71275; 74177; 76705; 80053; 80061; 82009; 82607; 82746; 82805; 82962; 83036; 83540; 83550; 83605; 83735; 83880; 84100; 84439; 84443; 84481; 84484; 85025; 85730; 87040; 87635; 87641; 90935; 93005; 93306; 94640; 94664; 96365; 96367; 96372; 97110; 97161; 97530; 99285; J0610; J1644; J1815; J1940; J2405; J2543; J3370; J7050; J7613; J7626; J7644; Q3014; Q9967

== ENCOUNTER 2022-12-13 11:14 | Inpatient (IN) | payer MEDICARE, SELFPAY ==
[2022-12-13] VITALS (56 sets, daily range): BP systolic 88–151; BP diastolic 71–95; PULSE 86–120; RESP 13–25; TEMP 36–36.1; O2SAT 81–99; BMI 19.2
--- NOTE | 2022-12-13 11:15 | W.ED.WEAKNES ---
HPI - Weakness General: Chief complaint: Weakness Stated complaint: generalized weakness, low o2 Time Seen by Provider: 12/13/22 11:15 History of Present Illness: Ms. Temple is an 67-year-old lady with complex past medical history including end-stage renal disease on hemodialysis, CHF, uncontrolled diabetes, CAD, chronic hypoxic respiratory failure on 3 L at baseline presenting to the emergency department for generalized weakness. She missed the past 2 dialysis treatments and was supposed to get one today however felt to be generally weak. She denies focality to her weakness. She endorses generalized malaise. She denies specific infectious symptoms. EMS found the patient hypoxemic in the low 80s on her baseline oxygen however this improved with breathing treatment. The patient herself denies feeling short of breath though oxygen saturation on 4 L is 82%. No other specific changes in health, exacerbating, or alleviating factors identified. Onset (ago): day(s) Duration: progressively worsening Location: generalized Severity: severe Relieving factors: none Exacerbating factors: none Context: other Review of Systems General: Reports: 10 or more systems reviewed and unremarkable except in HPI and below PFSH ED PFSH: Medical History (Updated 12/17/22 @ 00:01 by BELKYS Rosenberg) Acute on chronic diastolic CHF (congestive heart failure) Echocardiogram 11/30 shows EF of 20% with global LV hypokinesia, RVSP of 40, abnormal diastolic functions CAD in [place] artery Closed fracture of pubic ramus Depression End-stage renal disease needing dialysis ESRD on dialysis Fall Fracture acetabulum-closed Gastroparesis GERD (gastroesophageal reflux disease) Hyperlipidemia Hypertension Hypothyroidism Uncontrolled diabetes mellitus Surgical History (Updated 12/13/22 @ 14:33 by Geovanni Fleming MD) S/P CABG (coronary artery bypass graft) Social History Smoking and tobacco status: never smoked Alcohol intake: never Physical Exam Const: COMMON NORMALS: alert GENERAL APPEARANCE: cooperative, well developed and ill appearing HENMT: COMMON NORMALS: normocephalic and atraumatic HEAD & SCALP: normocephalic and atraumatic Eye: COMMON NORMALS: conjunctivae normal CONJUNCTIVA: Yes conjunctivae normal SCLERA: sclerae normal Neck/C-Spine: COMMON NORMALS: supple GENERAL: Yes trachea midline Resp: COMMON NORMALS: normal respiratory effort and clear to auscultation bilaterally EFFORT & INSPECTION: Yes able to speak in complete sentences AUSCULTATION: clear to auscultation bilaterally Cardio: COMMON NORMALS: regular rate and regular rhythm RATE: regular rate RHYTHM: regular rhythm GI: COMMON NORMALS: Soft to palpation PALPATION: Yes Soft to palpation and No Tenderness to palpation present (GI) Extremity: GENERAL: Yes normal exam except as noted and Yes edema Neuro: COMMON NORMALS: moves all extremities SENSORIUM/ORIENTATION: Yes alert and No Orientation impaired Psych: COMMON NORMALS: mental status grossly normal and Normal thought process present THOUGHT PROCESS: Normal thought process present Course Vital Signs: Vital signs: Vital Signs Temperature 98 F 12/16/22 14:10 Pulse Rate 84 12/16/22 14:10 Respiratory Rate 14 12/16/22 14:10 Blood Pressure 149/79 12/16/22 14:10 Pulse Oximetry 93 12/16/22 14:10 Oxygen Delivery Me thod 12/16/22 11:52 Oxygen Flow Rate 2 12/16/22 11:52 Fraction of Inspir ed Oxygen 55 12/15/22 06:00 MDM - Weakness Medical Decision Making 67-year-old lady presenting with missed dialysis and generalized illness. Exam as above. Patient is nontoxic. EKG notable for sinus rhythm with first-degree AV block and nonspecific ST segment abnormalities. RT treatment ordered. Labs notable for no significant hematologic abnormality. Metabolic panel with hypoxemia mild hypercapnia and decreased pH. This is on a nonrebreather mask. Patient has evidence of needing dialysis on metabolic panel. Negative range 2-hour delta troponin. Elevated BNP. Calcium ordered. Chest x-ray with bilateral loculated pleural effusions. Similar to prior. Most likely etiology of patient's symptoms is volume overload secondary to missed dialysis with need for urgent dialysis and worsening oxygen requirement. Nephrology service consulted. The results of ED evaluation were discussed with the patient including plan for admission due to requirement for level of care not available if discharged to prevent significant worsening/deterioration. Patient agreeable with plan. Discussed with hospitalist service who was agreeable to admit patient. Medical Records I reviewed the patient's medical records. Lab Data I reviewed the patient's lab results. 12/16/22 04:54 12/16/22 04:54 Radiology Impressions Chest X-Ray 12/13/22 11:30 IMPRESSION: Large bilateral loculated pleural effusions and bibasilar atelectasis greater on the left side. No significant change since previous chest x-ray. Chest/Abdomen X-ray 12/15/22 15:42 IMPRESSION: 1. Nonspecific nonobstructive bowel gas pattern. 2. Large left and small right pleural effusions. 3. Congestive heart failure pattern with cardiomegaly. Laboratory Results WBC 5.2 10^3/uL (4.0-10.0) 12/13/22 11:45 RBC 4.44 10^6/uL (4.1-5.3) 12/13/22 11:45 Hgb 14.0 g/dL (11.5-15.3) 12/13/22 11:45 Hct 45.2 % (37.0-47.0) 12/13/22 11:45 MCV 101.8 fl (81-99) H 12/13/22 11:45 MCH 31.5 pg (28.0-34.0) 12/13/22 11:45 MCHC 31.0 g/dL (30.0-36.0) 12/13/22 11:45 RDW 15.9 % (12.1-15.1) H 12/13/22 11:45 Plt Count 477 10^3/cmm (130-400) H 12/13/22 11:45 MPV 9.4 fL (7.4-10.4) 12/13/22 11:45 Neut % (Auto) 65.9 % 12/13/22 11:45 Lymph % (Auto) 21.2 % 12/13/22 11:45 Nance % (Auto) 10.1 % 12/13/22 11:45 Eos % (Auto) 1.0 % 12/13/22 11:45 Baso % (Auto) 1.4 % 12/13/22 11:45 Neut # (Auto) 3.40 10^3/uL (1.8-7.7) 12/13/22 11:45 Lymph # (Auto) 1.1 10^3/uL (0.8-4.8) 12/13/22 11:45 Nance # (Auto) 0.5 10^3/uL (0.2-0.9) 12/13/22 11:45 Eos # (Auto) 0.1 10^3/uL (0.0-0.8) 12/13/22 11:45 Baso # (Auto) 0.1 10^3/uL (0.0-0.1) 12/13/22 11:45 Nucleated RBC % (auto) 0 % 12/13/22 11:45 Nucleated RBCs # 0.0 /100WBC 12/13/22 11:45 D-Dimer 1.77 ug/mIFEU (0-0.59) H 12/13/22 11:45 Specimen Type Arterial 12/13/22 11:30 Sample Site Radial, left 12/13/22 11:30 ABG pH 7.34 (7.35-7.45) L 12/13/22 11:30 ABG pCO2 49.5 mmHg (35-45) H 12/13/22 11:30 ABG pO2 55.2 mmHg (80.0-100.0) L 12/13/22 11:30 ABG HCO3 26.9 mmol/L (22-26) H 12/13/22 11:30 ABG O2 Saturation 84.9 12/13/22 11:30 ABG Base Excess 0.6 mmol/L (-2.0-2.0) 12/13/22 11:30 Tj Test Pos 12/13/22 11:30 A-a O2 Gradient 4.6 mmHg (5-10) L 12/13/22 11:30 Hematocrit 37.0 % (37-47) 12/13/22 11:30 Hgb O2 Saturation 83.0 % (95-100) L 12/13/22 11:30 Carboxyhemoglobin 1.8 %THgb (0.4-20.1) 12/13/22 11:30 Methemoglobin 0.5 % (0.4-1.5) 12/13/22 11:30 Total Hemoglobin 12.1 g/dL (12-16) 12/13/22 11:30 Sodium 135.0 mmol/L (131-143) 12/13/22 11:30 Potassium 6.0 mmol/L (3.5-5.0) H 12/13/22 11:30 Glucose 165.0 mg/dL (70-115) H 12/13/22 11:30 Ionized Calcium 1.2 mmol/L (1.1-1.4) 12/13/22 11:30 O2 Delivery Device Nrb 12/13/22 11:30 O2 Liters/Min 15.0 % 12/13/22 11:30 Cafeteria Associate ID Cak 12/13/22 11:30 Sodium 131 mmol/L (136-145) L 12/13/22 11:45 Potassium 6.4 mmol/L (3.5-5.1) H 12/13/22 11:45 Chloride 92 mmol/L (98-107) L 12/13/22 11:45 Carbon Dioxide 22 mmol/L (22-29) 12/13/22 11:45 Anion Gap 23.4 (5-19) H 12/13/22 11:45 BUN 100 mg/dL (8-23) H* D 12/13/22 11:45 Creatinine 7.0 mg/dL (0.5-0.9) H* 12/13/22 11:45 GFR Calculation 5.8 mL/min (90-130) L 12/13/22 11:45 Glucose 170 mg/dL (65-115) H 12/13/22 11:45 Calculated Osmolality 307 mOsm/kg (285-295) H 12/13/22 11:45 Calcium 8.8 mg/dL (8.5-10.5) 12/13/22 11:45 Phosphorus 5.7 mg/dL (2.5-4.5) H 12/13/22 11:45 Magnesium 2.8 mg/dL (1.7-2.3) H 12/13/22 11:45 Total Bilirubin 0.3 mg/dL (0.15-1.2) 12/13/22 11:45 AST 50 U/L (0-32) H 12/13/22 11:45 ALT 38 U/L (0-33) H 12/13/22 11:45 Alkaline Phosphatase 440 U/L (35-105) H 12/13/22 11:45 Troponin T Baseline 143 ng/L (0-10) H* 12/13/22 11:45 NT-Pro-B Natriuret Pep > 47501 pg/mL (0-125) H 12/13/22 11:45 Total Protein 6.5 g/dL (6.6-8.7) L 12/13/22 11:45 Albumin 3.4 g/dL (3.5-5.2) L 12/13/22 11:45 Globulin 3.1 g/dL (1.3-4.6) 12/13/22 11:45 Discharge Plan Discharge Patient Disposition: Admitted As Inpatient Admit Provider: Geovanni Fleming Clinical Impression: Acute on chronic respiratory failure with hypoxia and hypercapnia, End-stage renal disease needing dialysis, Hyperkalemia, Volume overload, Elevated brain natriuretic peptide (BNP) level, Uremia Condition: Stable Discharge Diet: Cardiac and Diabetic Discharge Activity: Resume usual activity and Increase activity as tolerated Coding Level of Care Code ED In Flight Refueling System Repairer for Vikas Osorio
--- NOTE | 2022-12-13 11:30 | XRR_ITS ---
PROCEDURE INFORMATION: Exam: XR Chest Exam date and time: 12/13/2022 11:42 AM Age: 67 years old Clinical indication: Shortness of breath; Additional info: Hypoxia TECHNIQUE: Imaging protocol: Radiologic exam of the chest. Views: 1 view. COMPARISON: CR XR chest 1V portable [id number] 11/15/2022 12:55 PM FINDINGS: Tubes, catheters and devices: Dialysis catheter is present with the tip projecting in the SVC. Lungs: Bibasilar atelectasis greater on the left side and unchanged. Pleural spaces: Are large loculated bilateral pleural effusions which are unchanged. No pneumothorax. Heart/Mediastinum: The cardiac silhouette is enlarged but unchanged. Status post coronary artery bypass surgery. Bones/joints: Median sternotomy. No acute bony abnormality is seen. XR/XR chest 1V portable [id number] IMPRESSION: Large bilateral loculated pleural effusions and bibasilar atelectasis greater on the left side. No significant change since previous chest x-ray.
[2022-12-13 11:41] LABS: ABG PCO2 49.5 mmHg (35-45); ABG PH Result 7.34 (7.35-7.45); Alveolar-Arterial Oxygen Gradi 4.6 mmHg (5-10); Base Excess ABG 0.6 mmol/L (-2.0-2.0); Blood Gas Allen Test Pos; Blood Gas Operator Identificat CAK; Blood Gas Sample Site Radial, left; Blood Gas Sample Type Arterial; Carboxyhemoglobin 1.8 %THgb (0.4-20.1); HCO3 ABG 26.9 mmol/L (22-26); Ionized Calcium Level - ABG 1.2 mmol/L (1.1-1.4); Methemoglobin 0.5 % (0.4-1.5); Oxygen Device NRB; Oxygen Saturation ABG 84.9; PO2 ABG 55.2 mmHg (80.0-100.0); Total Hemoglobin 12.1 g/dL (12-16)
[2022-12-13] MEDS: calcium gluconate 0.9% NaCL 1 GM/50 ML PREMIX IV (11:54)
[2022-12-13 12:05] LABS: Basophils # 0.1 10^3/uL (0.0-0.1); Basophils % 1.4 %; Eosinophils # 0.1 10^3/uL (0.0-0.8); Hematocrit 45.2 % (37.0-47.0); Lymphocytes # 1.1 10^3/uL (0.8-4.8); Lymphocytes % 21.2 %; Mean Corpuscular Hemoglobin 31.5 pg (28.0-34.0); Mean Corpuscular Volume 101.8 fl (81-99); Mean Platelet Volume 9.4 fL (7.4-10.4); Monocytes # 0.5 10^3/uL (0.2-0.9); Monocytes % 10.1 %; Neutrophils % 65.9 %; Nucleated Red Blood Cells % 0 %; Platelet Count 477 10^3/cmm (130-400); Red Blood Count 4.44 10^6/uL (4.1-5.3); Red Cell Distribution Width 15.9 % (12.1-15.1); White Blood Count 5.2 10^3/uL (4.0-10.0)
--- NOTE | 2022-12-13 12:13 | ECG_ITS ---
[facility] Test Date: 2022-12-13 Pat Name: Cony Temple Department: Room: Gender: Female Container Finisher: : 1955 Requested By: Micah Connell Order Number: [id number] Doug MD: Rick Castellon M.D. Measurements Intervals [place] Rate: 87 P: 41 AK: 222 QRS: 25 QRSD: 105 T: 162 QT: 370 QTc: 446 Interpretive Statements SINUS RHYTHM WITH FIRST DEGREE AV BLOCK POSSIBLE LEFT ATRIAL ENLARGEMENT [-0.1mV P-WAVE IN V1/V2] MODERATE T-WAVE ABNORMALITY, CONSIDER INFERIOR ISCHEMIA [-0.1+ mV T-WAVE IN II/aVF] Compared to ECG 11/15/2022 19:32:32 No significant changes Electronically Signed On 12-13-2022 15:07:27 CORK CUTTER by Rick Castellon M.D. [id number]
[2022-12-13 12:33] LABS: Troponin(5th) Baseline 143 ng/L (0-10)
[2022-12-13 12:35] LABS: Alanine Aminotransferase 38 U/L (0-33); Albumin Level 3.4 g/dL (3.5-5.2); Alkaline Phosphatase 440 U/L (35-105); Aspartate Amino Transferase 50 U/L (0-32); Calcium 8.8 mg/dL (8.5-10.5); Carbon Dioxide 22 mmol/L (22-29); Chloride 92 mmol/L (98-107); Globulin 3.1 g/dL (1.3-4.6); Glucose 170 mg/dL (65-115); Magnesium 2.8 mg/dL (1.7-2.3); Phosphorus 5.7 mg/dL (2.5-4.5); Sodium 131 mmol/L (136-145); Total Bilirubin 0.3 mg/dL (0.15-1.2); Total Protein 6.5 g/dL (6.6-8.7)
[2022-12-13 13:13] LABS: Blood Urea Nitrogen 100 mg/dL (8-23); Osmolality Calculated 307 mOsm/kg (285-295)
[2022-12-13 13:14] LABS: Glomerular Filtration Rate 5.8 mL/min (90-130)
[2022-12-13 13:15] LABS: Anion Gap 23.4 (5-19); NT Pro B Type Natriuretic Pept > 70000 pg/mL (0-125); Potassium 6.4 mmol/L (3.5-5.1)
--- NOTE | 2022-12-13 13:31 | ECG_ITS ---
[facility] Test Date: 2022-12-13 Pat Name: Cony Temple Department: Room: Gender: Female Associate Application Developer: : 1955 Requested By: Micah Connell Order Number: [id number] Doug MD: Rick Castellon M.D. Measurements Intervals [place] Rate: 86 P: 43 PA: 224 QRS: 22 QRSD: 106 T: 190 QT: 375 QTc: 449 Interpretive Statements SINUS RHYTHM WITH FIRST DEGREE AV BLOCK POSSIBLE LEFT ATRIAL ENLARGEMENT [-0.1mV P-WAVE IN V1/V2] ST DEVIATION AND MODERATE T-WAVE ABNORMALITY, CONSIDER INFERIOR ISCHEMIA [-0.1+ mV T-WAVE IN II/aVF] Compared to ECG 12/13/2022 12:13:22 No significant changes Electronically Signed On 12-13-2022 15:13:08 MARKET RESEARCH COORDINATOR by Rick Castellon M.D. [id number]
--- NOTE | 2022-12-13 14:29 | PM.HP ---
Providers/Chief Complaint Primary Care Provider: Zenon De Los Santos MD Chief Complaint: generalized weakness, low o2 History of Present Illness Cony Temple is a 67 year old female with past known her medical history of CAD post CABG, congestive systolic and diastolic heart failure with last known EF 1 month ago 20-25%, ESRD on hemodialysis, type 2 diabetes mellitus with labile blood sugars, hypertension, chronic hypoxia requiring oxygen secondary to CHF, noncompliance, depression presented to the ER today because of difficulty in breathing which is getting worse for last 2 to 3 days. As per the patient she missed at least left 2-3 sessions of dialysis because she was not feeling well. She is feeling abdominal pain along with nausea hence she did not go for her dialysis sessions. When EMS arrived at her house she was saturating in the mid 70s on 3 L. In the ER she was was placed on heated high flow and was given calcium gluconate for hyperkalemia. Blood work in the ER showed a white blood 5.2, hemoglobin of 14, ABG showing a pH of 7.34, PCO2 49.5, PO2 55.2 on 15 L nonrebreather, chemistry showing 131 sodium, potassium 6.4, BUN of 100, creatinine of 7 with baseline troponin 143, AST/ALT of 50/38 with alkaline phosphatase of 440 with proBNP of more than 70,000. Review of Systems General: Reports: 10 or more systems reviewed and unremarkable except in HPI and below Const: Denies: fever(s), chills, body aches, change in appetite, change in weight, malaise, night sweats, diaphoresis, change in sleep pattern, daytime sleepiness or snoring Eyes: Denies: change in vision, blurry vision, photophobia, eye discomfort or eye discharge ENMT: Denies: throat pain, enlarged tonsils, hoarseness, mouth pain, oral sores, dry mouth, tinnitus, nasal congestion or post nasal drip Card: Denies: chest pain, palpitations, irregular heart rhythm, edema, swelling of feet/ankles, lightheadedness, syncope, pre-syncope, dyspnea on exertion, orthopnea, leg pain with exertion or acrocyanosis Resp: Denies: dyspnea, productive cough, non-productive cough, wheezing, stridor, pain on inspiration, change in phlegm color, hemoptysis or chest congestion GI: Denies: abdominal pain, nausea, vomiting, hematemesis, coffee ground emesis, dysphagia, heartburn, diarrhea, constipation, bloating, GI cramping, change in bowel habits, pain on defecation, hematochezia or melena : Denies: flank pain, dysuria, urinary frequency, urinary urgency, urinary hesitancy, nocturia or hematuria Musc: Denies: neck pain, back pain, extremity pain, joint pain, joint swelling, joint redness, joint stiffness or limited range of motion Neuro: Denies: headache(s), numbness in extremities, weakness in extremities, sensory changes, lack of coordination, difficulty walking, frequent falls, dizziness, vertigo, confusion, Slurred speech present, difficulty communicating thoughts or seizure-like activity Psych: Denies: anxiety, depression, mood swings, panic attacks, hopelessness or irritability Endo: Denies: polyuria, polydipsia, tired all the time, cold intolerance, excessive sweating, flushing or heat intolerance Los/Lymph: Denies: easy bruising or easy bleeding All/Imm: Denies: tongue swelling, facial swelling or acute wheezing Medications/Allergies Home Medications Medication Instructions Recorded Confirmed Last Taken Type pantoprazole 40 mg tablet,delayed 40 mg PO QAM 08/21/21 12/13/22 12/12/22 History release atorvastatin 40 mg tablet 40 mg PO QPM 03/06/22 12/13/22 12/12/22 History carvedilol 12.5 mg tablet 12.5 mg PO BID 03/06/22 12/13/22 12/12/22 History clopidogrel 75 mg tablet 75 mg PO QAM 03/06/22 12/13/22 12/12/22 History levothyroxine 75 mcg tablet 37.5 mcg PO DAILY 03/06/22 12/13/22 12/12/22 History vit B,C-folic ac 800 mcg-zinc 12.5 1 tab PO QAM 03/06/22 12/13/22 12/12/22 History mg-selen-D3 2,000 unit-vit E tablet (RenaPlex-D) hydrocodone 5 mg-acetaminophen 325 1 tab PO Q6H PRN pain 7 days #28 10/17/22 12/13/22 Unknown Rx mg tablet tabs metolazone 5 mg tablet 5 mg PO DAILY 30 minutes before 10/17/22 12/13/22 12/12/22 History torsemide sevelamer carbonate 800 mg tablet 1,600 mg PO TID 10/17/22 12/13/22 12/12/22 History torsemide 100 mg tablet 100 mg PO QAM 10/17/22 12/13/22 12/12/22 History venlafaxine 150 mg 150 mg PO QAM 10/17/22 12/13/22 12/12/22 History capsule,extended release 24 hr insulin glargine 100 unit/mL (3 5 unit SUBCUT BID 11/15/22 12/13/22 12/12/22 History mL) subcutaneous pen (Lantus Solostar U-100 Insulin) lorazepam 1 mg tablet 1 mg PO TID PRN Anxiety 11/15/22 12/13/22 Unknown History donepezil 5 mg tablet 10 mg PO BEDTIME #60 tabs 11/18/22 12/13/22 12/12/22 Rx losartan 50 mg tablet 50 mg PO DAILY #30 tabs 11/18/22 12/13/22 12/12/22 Rx amlodipine 10 mg tablet 10 mg PO BEDTIME 12/13/22 12/13/22 12/12/22 History aspirin 325 mg tablet 325 mg PO BID 12/13/22 12/13/22 12/12/22 History insulin lispro 100 unit/mL See Rx Instructions .Route .COMPLEX 12/13/22 12/13/22 Unknown History subcutaneous pen (Humalog KwikPen (U-100) Insulin) Allergies Allergy/AdvReac Type Severity Reaction Status Date / Time azithromycin Allergy Unknown Verified 10/17/22 08:06 erythromycin base Allergy Unknown Verified 10/17/22 08:07 mycins Allergy Unknown Uncoded 11/09/21 11:13 PFSH Acute PFSH: Medical History (Updated 12/13/22 @ 14:33 by Geovanni Fleming MD) Acute on chronic diastolic CHF (congestive heart failure) Echocardiogram 11/30 shows EF of 20% with global LV hypokinesia, RVSP of 40, abnormal diastolic functions CAD in [place] artery Closed fracture of pubic ramus Depression ESRD on dialysis Fall Fracture acetabulum-closed Gastroparesis GERD (gastroesophageal reflux disease) Hyperlipidemia Hypertension Hypothyroidism Uncontrolled diabetes mellitus Surgical History (Updated 12/13/22 @ 14:33 by Geovanni Fleming MD) S/P CABG (coronary artery bypass graft) Social History Smoking and tobacco status: never smoked Alcohol intake: never Vitals/I&O/Wt Last Vital Signs Pulse 88 12/13/22 11:55 Resp 20 H 12/13/22 11:55 Pulse Ox 93 12/13/22 11:55 O2 Del Method 12/13/22 11:26 O2 Flow Rate 35 12/13/22 11:55 FiO2 70 12/13/22 11:55 Weight last 48 hrs Weight 54.431 kg Physical Exam Narrative: General: No acute distress, AO x3, on heated high flow 70% 30 L HEENT: PERRLA, pupils bilaterally equal and reactive Chest:Bronchial breath sounds b/l ,decreased air entry, equal good air entry bilaterally, no more fine basal crackles CVS: S1-S2 regular, no murmurs, no tachycardia, no gallops, no rubs Abdomen: Soft, nontender, no organomegaly, bowel sounds present, morbidly obese Neuro: No focal deficits, no facial deformity, AO x3, power 5/5 in all limbs Data 12/13/22 11:45 12/13/22 11:45 Micro: Microbiology 12/13/22 11:45 Blood Culture - Preliminary Blood SPECIMEN COLLECTED 12/13/22 11:45 Blood Culture - Preliminary Blood SPECIMEN COLLECTED A&P Assessment and plan (1) Missed dialysis: (2) Acute respiratory failure with hypoxia and hypercapnia: (3) End-stage renal disease needing dialysis: (4) Hyperkalemia: (5) Acute on chronic diastolic CHF (congestive heart failure): (6) Volume overload: (7) Troponin level elevated: (8) High anion gap metabolic acidosis: (9) S/P CABG (coronary artery bypass graft): (10) Uncontrolled diabetes mellitus: (11) Hypertension: Plan 67 female with past medical history of CAD post CABG with EF of 40%, systolic and diastolic congestive heart failure, end-stage renal disease on hemodialysis with history of noncompliance presented to the ER with difficulty in breathing after missing 2-3 sessions of dialysis 1 week. Acute hypoxic respiratory failure: Most likely in setting of congestive heart failure exacerbation from missing dialysis sessions. Patient does not have any leukocytosis, fever. Chest x-ray negative for any consolidation. Pneumonia so far less likely. Check sputum culture, respiratory viral panel, blood culture. For now hold off on antibiotics. High gap metabolic acidosis/hyperkalemia: In setting of end-stage renal disease hemodialysis. D50/10 units insulin. Monitor BMP postdialysis. Acute on chronic systolic and diastolic congestive heart failure: Last known EF of 20% with global LV hypokinesia with RVSP of 40. Continue home dose of torsemide and metolazone for now. CAD/post CABG: Cycle troponins. Baseline troponin elevated most likely in setting of type II TX from stress secondary to missed dialysis and congestive heart failure. No active chest pain currently. Continue home dose of aspirin, statin, beta-shanthi. Can plan to add Imdur. Hypertension: Goal blood pressure less than 140 over 90 mmHg. Continue home dose of carvedilol, amlodipine. Most likely will stop losartan given history of noncompliance leading to hyperkalemia and switch to Imdur. Type 2 diabetes mellitus: History of labile blood sugars. Continue home dose of Lantus 5 units twice daily. Sliding scale low-dose protocol. Renal cardiac carb consistent dialysis diet. Analgesia: Home dose [place] 5 mg every 6 hourly as needed Glycemic control: Lantus 5 units twice daily, low-dose insulin protocol Nutrition: Renal diabetic dialysis diet CODE STATUS: Discussed in detail with the patient once again on previous admission. We discussed she continues to be noncompliant continues to make dialysis session on and off. We discussed that there is high chance of her having a cardiac arrest or respiratory failure leading to . She verbalized understanding and would want to do everything to keep herself alive. She states she is in a follow-up going forward. Full code. Will discuss CODE STATUS again in detail with patient's family at bedside. PUD prophylaxis: Protonix DVT prophylaxis: Heparin 5000 every 12 hourly. Discharge planning: Home with caregiver once medically stable Admit to ICU. This documentation was created by [employer] internal audit director software. Every effort was made to ensure accuracy of internal audit director. Any obvious errors or omissions should be clarified with the author of the document. Attestations Medical Necessity Statement*: Admission for more than 2 midnights for management of hypoxic and hypercapnic respiratory failure, high gap metabolic acidosis in a patient with end-stage renal disease secondary to missed hemodialysis, non-ST elevation TX in a patient with a history of congestive heart failure post CABG Coding Level of Care Code Critical Care >/= 30 minutes Critical care time (in minutes): 80 The high probability of a clinically significant, sudden or life threatening deterioration, as referenced in this documentation, required my full and direct attention, intervention and personal management. The critical care time shown is in addition to time spent performing any reported separately billable procedures and includes the following: [x] Data and vital sign review and interpretation [x] Patient assessment, examination and intervention [x] Medication orders and management [x] Patient/Family updates as able [x] Care Coordination and Documentation. Diagnoses Missed dialysis Acute respiratory failure with hypoxia and hypercapnia J96.01; J96.02 End-stage renal disease needing dialysis N18.6; Z99.2 Hyperkalemia E87.5 Acute on chronic diastolic CHF (congestive heart failure) I50.33 Volume overload E87.70 Troponin level elevated R77.8 High anion gap metabolic acidosis E87.29 S/P CABG (coronary artery bypass graft) Z95.1 Uncontrolled diabetes mellitus E11.65 Hypertension I10
[2022-12-13] MEDS: albuterol 2.5 mg/3 mL Neb INHALATION (14:30)
[2022-12-13] MEDS: insulin regular-human 100 units/1 mL 10 UNIT IVP (14:39)
[2022-12-13] MEDS: dextrose 50% syringe 50 mL IVP (14:41)
[2022-12-13 14:47] LABS: Troponin 5 2HR 129.9 ng/L (0-10); Troponin 5 2HR Delta -13.1 ABS# (0-10)
[2022-12-13 15:08] LABS: D Dimer 1.77 ug/mIFEU (0-0.59)
--- NOTE | 2022-12-13 16:05 | PM.CONSULT ---
Providers/Reason For Consult Consulting Physician/Specialty*: Dr. grove/Nephrology Reason for Consult*: ESRD Attending Physician: Geovanni Fleming MD Primary Care Provider: Zenon De Los Santos MD History of Present Illness History of Present Illness Cony Temple is a 67 year old female Medications/Allergies Home Medications Medication Instructions Recorded Confirmed Last Taken Type pantoprazole 40 mg tablet,delayed 40 mg PO QAM 08/21/21 12/13/22 12/12/22 History release atorvastatin 40 mg tablet 40 mg PO QPM 03/06/22 12/13/22 12/12/22 History carvedilol 12.5 mg tablet 12.5 mg PO BID 03/06/22 12/13/22 12/12/22 History clopidogrel 75 mg tablet 75 mg PO QAM 03/06/22 12/13/22 12/12/22 History levothyroxine 75 mcg tablet 37.5 mcg PO DAILY 03/06/22 12/13/22 12/12/22 History vit B,C-folic ac 800 mcg-zinc 12.5 1 tab PO QAM 03/06/22 12/13/22 12/12/22 History mg-selen-D3 2,000 unit-vit E tablet (RenaPlex-D) hydrocodone 5 mg-acetaminophen 325 1 tab PO Q6H PRN pain 7 days #28 10/17/22 12/13/22 Unknown Rx mg tablet tabs metolazone 5 mg tablet 5 mg PO DAILY 30 minutes before 10/17/22 12/13/22 12/12/22 History torsemide sevelamer carbonate 800 mg tablet 1,600 mg PO TID 10/17/22 12/13/22 12/12/22 History torsemide 100 mg tablet 100 mg PO QAM 10/17/22 12/13/22 12/12/22 History venlafaxine 150 mg 150 mg PO QAM 10/17/22 12/13/22 12/12/22 History capsule,extended release 24 hr insulin glargine 100 unit/mL (3 5 unit SUBCUT BID 11/15/22 12/13/22 12/12/22 History mL) subcutaneous pen (Lantus Solostar U-100 Insulin) lorazepam 1 mg tablet 1 mg PO TID PRN Anxiety 11/15/22 12/13/22 Unknown History donepezil 5 mg tablet 10 mg PO BEDTIME #60 tabs 11/18/22 12/13/22 12/12/22 Rx losartan 50 mg tablet 50 mg PO DAILY #30 tabs 11/18/22 12/13/22 12/12/22 Rx amlodipine 10 mg tablet 10 mg PO BEDTIME 12/13/22 12/13/22 12/12/22 History aspirin 325 mg tablet 325 mg PO BID 12/13/22 12/13/22 12/12/22 History insulin lispro 100 unit/mL See Rx Instructions .Route .COMPLEX 12/13/22 12/13/22 Unknown History subcutaneous pen (Humalog KwikPen (U-100) Insulin) Allergies Allergy/AdvReac Type Severity Reaction Status Date / Time azithromycin Allergy Unknown Verified 10/17/22 08:06 erythromycin base Allergy Unknown Verified 10/17/22 08:07 mycins Allergy Unknown Uncoded 11/09/21 11:13 PFSH Acute PFSH: Medical History (Updated 12/13/22 @ 14:33 by Geovanni Fleming MD) Acute on chronic diastolic CHF (congestive heart failure) Echocardiogram 11/30 shows EF of 20% with global LV hypokinesia, RVSP of 40, abnormal diastolic functions CAD in [place] artery Closed fracture of pubic ramus Depression ESRD on dialysis Fall Fracture acetabulum-closed Gastroparesis GERD (gastroesophageal reflux disease) Hyperlipidemia Hypertension Hypothyroidism Uncontrolled diabetes mellitus Surgical History (Updated 12/13/22 @ 14:33 by Geovanni Fleming MD) S/P CABG (coronary artery bypass graft) Social History Smoking and tobacco status: never smoked Alcohol intake: never Vitals/I&O/Wt Last Vital Signs Pulse 87 12/13/22 14:55 Resp 15 12/13/22 14:55 BP 151/95 12/13/22 14:55 Pulse Ox 91 12/13/22 14:55 O2 Del Method 12/13/22 14:33 O2 Flow Rate 35 12/13/22 14:34 FiO2 70 12/13/22 14:34 Weight last 48 hrs Weight 47.627 kg Weight 54.431 kg Data 12/13/22 11:45 12/13/22 11:45 Micro: Microbiology 12/13/22 11:45 Blood Culture - Preliminary Blood SPECIMEN COLLECTED 12/13/22 11:45 Blood Culture - Preliminary Blood SPECIMEN COLLECTED Coding Level of Care Code Acute Code for Chg Fwd
--- NOTE | 2022-12-13 17:31 | ECG_ITS ---
[facility] Test Date: 2022-12-13 Pat Name: Cony Temple Department: Room: [facility] Gender: Female Education Program Coordinator: : 1955 Requested By: Micah Connell Order Number: [id number] Doug MD: Krupa Yarbrough M.D. Measurements Intervals [place] Rate: 92 P: 39 MT: 193 QRS: -11 QRSD: 98 T: 153 QT: 366 QTc: 454 Interpretive Statements SINUS RHYTHM LEFT ATRIAL ENLARGEMENT [-0.15mV P-WAVE IN V1/V2] NONSPECIFIC ST & T-WAVE ABNORMALITY Compared to ECG 12/13/2022 13:42:57 First degree AV block no longer present Possible ischemia no longer present T-wave abnormality still present Electronically Signed On 12-14-2022 23:45:59 HYDRAULIC CORRUGATING MACHINE OPERATOR by Krupa Yarbrough M.D. [email or web address]
[2022-12-13 17:32] LABS: Iron 36 ug/dL (37-145); Procalcitonin 0.92 ng/mL (0-0.5)
[2022-12-13 18:01] LABS: Percent Saturation 16.3 % (20-50); Total Iron Binding Capacity 220 mcg/dl; Unsaturated Iron Binding 184 ug/dL (112-347)
[2022-12-13 18:02] LABS: Glucose Point of Care 84 mg/dL (70-110)
[2022-12-13] MEDS: heparin, porcine 1,000 unit/mL INJ 10 mL 10000 UNIT HE (18:06)
[2022-12-13] MEDS: heparin 5,000 unit/mL INJ 1 mL 5000 UNIT SUBCUT (18:06)
[2022-12-13] MEDS: carvedilol 12.5 mg Tablet PO (18:06)
[2022-12-13] MEDS: atorvastatin 40 mg Tablet PO (18:06)
[2022-12-13] MEDS: sevelamer 800 mg Tablet 1600 MG PO ×2 (18:06→20:41)
[2022-12-13] MEDS: insulin glargine 100 units/1 mL 5 UNIT SUBCUT (18:06)
[2022-12-13] MEDS: docusate sodium 100 mg Capsule PO (18:06)
--- NOTE | 2022-12-13 18:54 | PC.NURSE ---
Pt arrived from ER to ICU via bed on non rebreather that was switched to F one in room. Bruises and scabs are noted to bilateral forearms.
[2022-12-13] MEDS: amlodipine 10 mg Tablet PO (20:40)
[2022-12-13] MEDS: donepezil 5 MG Tablet 10 MG PO (20:41)
[2022-12-13 20:49] LABS: Glucose Point of Care 75 mg/dL (70-110)
[2022-12-13 21:11] LABS: Adenovirus Not Detected (NOT DETECT); Chlamydia Pneumoniae Not Detected (NOT DETECT); Coronavirus 229E,HKU1,NL63,OC4 Not Detected (NOT DETECT); Human Metapneumovirus Not Detected (NOT DETECT); Human Rhinovirus/Enterovirus Not Detected (NOT DETECT); Influenza A Not Detected (NOT DETECT); Influenza A H1 Not Detected (NOT DETECT); Influenza A H1-2009 Not Detected (NOT DETECT); Influenza A H3 Not Detected (NOT DETECT); Influenza B Not Detected (NOT DETECT); Mycoplasma Pneumoniae Not Detected (NOT DETECT); Parainfluenza Virus Type 1 Not Detected (NOT DETECT); Parainfluenza Virus Type 2 Not Detected (NOT DETECT); Parainfluenza Virus Type 3 Not Detected (NOT DETECT); Parainfluenza Virus Type 4 Not Detected (NOT DETECT); Respiratory Syncytial Virus A Not Detected (NOT DETECT); Respiratory Syncytial Virus B Not Detected (NOT DETECT); SARS-COV-2 Not Detected (NOT DETECT)
--- NOTE | 2022-12-13 21:17 | PC.NURSE ---
Dialysis complete, tolerated well. Offered patient a bath, patient refused. No reports of pain or discomfort.
--- NOTE | 2022-12-13 22:48 | PC.HD ---
AP increased rapidly upon initiation of treatment causing blood pump to stop. Dr Yola fisher and Heparin loading dose and hourly infusion ordered. In spite of heparin, BFR had to be decreased and was unable to return to ordered rate throughout treatment, Dr Yola fisher, also ntfd that fluid removal goal not reached d/t decreasing BP and pt not feeling well. O2 sat 88% on 15L nasal pillow prior to treatment, gradually improved to 97% by treatment end.
[2022-12-14] VITALS (20 sets, daily range): BP systolic 137–150; BP diastolic 80–103; PULSE 77–92; RESP 6–35; TEMP 36.4–36.8; O2SAT 88–97
[2022-12-14 03:51] LABS: Basophils # 0.1 10^3/uL (0.0-0.1); Basophils % 1.4 %; Eosinophils # 0.1 10^3/uL (0.0-0.8); Eosinophils % 1.6 %; Hematocrit 41.8 % (37.0-47.0); Hemoglobin 13.2 g/dL (11.5-15.3); Lymphocytes # 1.4 10^3/uL (0.8-4.8); Lymphocytes % 28.1 %; Mean Corpuscular HGB Conc 31.6 g/dL (30.0-36.0); Mean Corpuscular Hemoglobin 31.8 pg (28.0-34.0); Mean Corpuscular Volume 100.7 fl (81-99); Mean Platelet Volume 9.5 fL (7.4-10.4); Monocytes # 0.6 10^3/uL (0.2-0.9); Monocytes % 11.5 %; Neutrophils # 2.78 10^3/uL (1.8-7.7); Neutrophils % 57.2 %; Nucleated Red Blood Cells % 0 %; Platelet Count 446 10^3/cmm (130-400); Red Blood Count 4.15 10^6/uL (4.1-5.3); White Blood Count 4.9 10^3/uL (4.0-10.0)
[2022-12-14 04:09] LABS: Alanine Aminotransferase 26 U/L (0-33); Albumin Level 2.9 g/dL (3.5-5.2); Alkaline Phosphatase 361 U/L (35-105); Anion Gap 19.1 (5-19); Aspartate Amino Transferase 25 U/L (0-32); Blood Urea Nitrogen 51 mg/dL (8-23); Calcium 8.4 mg/dL (8.5-10.5); Carbon Dioxide 25 mmol/L (22-29); Chloride 96 mmol/L (98-107); Globulin 3.1 g/dL (1.3-4.6); Glomerular Filtration Rate 9.7 mL/min (90-130); Glucose 77 mg/dL (65-115); Osmolality Calculated 292 mOsm/kg (285-295); Potassium 5.1 mmol/L (3.5-5.1); Sodium 135 mmol/L (136-145); Total Bilirubin 0.3 mg/dL (0.15-1.2)
[2022-12-14] MEDS: TORSEmide 20 mg Tablet 100 MG PO (05:44)
[2022-12-14] MEDS: pantoprazole DR 40 mg Tablet PO (05:44)
[2022-12-14] MEDS: clopidogrel 75 mg Tablet PO (05:44)
[2022-12-14] MEDS: heparin 5,000 unit/mL INJ 1 mL 5000 UNIT SUBCUT ×2 (05:45→17:22)
[2022-12-14] MEDS: venlafaxine ER (24HR) 150 mg Capsule PO (05:45)
[2022-12-14 07:44] LABS: Glucose Point of Care 58 mg/dL (70-110)
[2022-12-14] MEDS: metOLazone 5 MG Tablet PO (07:45)
[2022-12-14] MEDS: docusate sodium 100 mg Capsule PO ×2 (07:45→17:22)
[2022-12-14] MEDS: levothyroxine 75 mcg Tablet 37.5 MCG PO (07:46)
[2022-12-14] MEDS: sevelamer 800 mg Tablet 1600 MG PO ×2 (07:46→21:22)
[2022-12-14] MEDS: carvedilol 12.5 mg Tablet PO ×2 (07:46→17:22)
[2022-12-14 09:41] LABS: Glucose Point of Care 225 mg/dL (70-110)
[2022-12-14 11:26] LABS: Glucose Point of Care 165 mg/dL (70-110)
[2022-12-14] MEDS: insulin lispro 100 unit/1 mL SUBCUT ×2 (12:34→17:23)
--- NOTE | 2022-12-14 13:04 | PM.PN ---
Subjective Subjective: No acute events overnight. Patient did get extra session of dialysis yesterday. Today morning examination states feeling a lot better. Continues to remain on heated high flow 60% 30 L to maintain saturation over 90%. Has remained hemodynamically stable and afebrile. Asking when can she go home. Did have episode of hypoglycemia today morning resolved with oral juice. Blood sugars well controlled since then. Vitals/I&O/Wt Last Vital Signs Temp 97.8 F 12/14/22 08:00 Pulse 79 12/14/22 12:00 Resp 15 12/14/22 12:00 BP 137/80 12/14/22 12:00 Pulse Ox 94 12/14/22 12:00 O2 Del Method 12/14/22 06:00 O2 Flow Rate 30 12/14/22 11:11 FiO2 50 12/14/22 11:11 12/13/22 12/14/22 12/14/22 22:59 06:59 14:59 Intake Total 200 / 200 240 / 240 Output Total 5380 / 5380 0 / 5380 Balance -5180 / -5180 0 / -5180 240 / 240 Weight last 48 hrs Weight 47.174 kg Weight 49.3 kg Weight 47.627 kg Weight 54.431 kg Physical Exam Narrative: General: No acute distress, AO x3, on heated high flow 70% 30 L HEENT: PERRLA, pupils bilaterally equal and reactive Chest:Bronchial breath sounds b/l ,decreased air entry, equal good air entry bilaterally, no more fine basal crackles CVS: S1-S2 regular, no murmurs, no tachycardia, no gallops, no rubs Abdomen: Soft, nontender, no organomegaly, bowel sounds present, morbidly obese Neuro: No focal deficits, no facial deformity, AO x3, power 5/5 in all limbs Data 12/14/22 03:10 12/14/22 03:10 Micro: Microbiology 12/13/22 11:45 Blood Culture - Preliminary Blood NEGATIVE TO DATE 12/13/22 11:45 Blood Culture - Preliminary Blood NEGATIVE TO DATE A&P Assessment and plan (1) Missed dialysis: (2) Acute respiratory failure with hypoxia and hypercapnia: (3) End-stage renal disease needing dialysis: (4) Hyperkalemia: (5) Acute on chronic diastolic CHF (congestive heart failure): (6) Volume overload: (7) Troponin level elevated: (8) High anion gap metabolic acidosis: (9) S/P CABG (coronary artery bypass graft): (10) Uncontrolled diabetes mellitus: (11) Hypertension: Plan 67 female with past medical history of CAD post CABG with EF of 40%, systolic and diastolic congestive heart failure, end-stage renal disease on hemodialysis with history of noncompliance presented to the ER with difficulty in breathing after missing 2-3 sessions of dialysis 1 week. Acute hypoxic respiratory failure: Most likely in setting of congestive heart failure exacerbation from missing dialysis sessions. Patient does not have any leukocytosis, fever. Chest x-ray negative for any consolidation. Pneumonia so far less likely. Check sputum culture, respiratory viral panel, blood culture. For now hold off on antibiotics. High gap metabolic acidosis/hyperkalemia: In setting of end-stage renal disease hemodialysis. D50/10 units insulin. Monitor BMP postdialysis. Acute on chronic systolic and diastolic congestive heart failure: Last known EF of 20% with global LV hypokinesia with RVSP of 40. Continue home dose of torsemide and metolazone for now. CAD/post CABG: Cycle troponins. Baseline troponin elevated most likely in setting of type II [place] from stress secondary to missed dialysis and congestive heart failure. No active chest pain currently. Continue home dose of aspirin, statin, beta-shanthi. Can plan to add Imdur. Hypertension: Goal blood pressure less than 140 over 90 mmHg. Continue home dose of carvedilol, amlodipine. Most likely will stop losartan given history of noncompliance leading to hyperkalemia and switch to Imdur. Type 2 diabetes mellitus: History of labile blood sugars. Continue home dose of Lantus 5 units twice daily. Sliding scale low-dose protocol. Renal cardiac carb consistent dialysis diet. Analgesia: Home dose [place] 5 mg every 6 hourly as needed Glycemic control: Lantus 5 units twice daily, low-dose insulin protocol Nutrition: Renal diabetic dialysis diet CODE STATUS: Discussed in detail with the patient once again on previous admission. We discussed she continues to be noncompliant continues to make dialysis session on and off. We discussed that there is high chance of her having a cardiac arrest or respiratory failure leading to . She verbalized understanding and would want to do everything to keep herself alive. She states she is in a follow-up going forward. Full code. Will discuss CODE STATUS again in detail with patient's family at bedside. PUD prophylaxis: Protonix DVT prophylaxis: Heparin 5000 every 12 hourly. Discharge planning: Home with caregiver once medically stable Plan for the day: Extra session of dialysis as per nephrology. Oxygen supplementation to be weaned down keeping saturation over 90%. Continue with home dose of antihypertensives. Holding off on losartan for now. Patient had hypoglycemia earlier today morning. Continue home dose of Lantus. Change insulin sliding scale low-dose protocol AC and hold off on at bedtime. Troponin cycled trending down. Patient denies any chest pain. Continue with ICU care. This documentation was created by [employer] learning support aide software. Every effort was made to ensure accuracy of learning support aide. Any obvious errors or omissions should be clarified with the author of the document. Attestations Medical Necessity Statement*: Requires further hospitalization for management of hypoxic respiratory failure in setting of congestive heart failure in a patient with end-stage renal disease on hemodialysis with missed dialysis while she requires further dialysis sessions as oxygen supplementation is weaned down Coding Level of Care Code Critical Care >/= 30 minutes Critical care time (in minutes): 70 The high probability of a clinically significant, sudden or life threatening deterioration, as referenced in this documentation, required my full and direct attention, intervention and personal management. The critical care time shown is in addition to time spent performing any reported separately billable procedures and includes the following: [x] Data and vital sign review and interpretation [x] Patient assessment, examination and intervention [x] Medication orders and management [x] Patient/Family updates as able [x] Care Coordination and Documentation. Diagnoses Missed dialysis Acute respiratory failure with hypoxia and hypercapnia J96.01; J96.02 End-stage renal disease needing dialysis N18.6; Z99.2 Hyperkalemia E87.5 Acute on chronic diastolic CHF (congestive heart failure) I50.33 Volume overload E87.70 Troponin level elevated R77.8 High anion gap metabolic acidosis E87.29 S/P CABG (coronary artery bypass graft) Z95.1 Uncontrolled diabetes mellitus E11.65 Hypertension I10
[2022-12-14] MEDS: ondansetron 2 mg/ML SDV 2 mL 4 MG IVP ×2 (13:17→22:50)
--- NOTE | 2022-12-14 16:35 | PM.PN ---
Subjective Subjective: on 40 % face mask Medications: Reviewed: Yes Vitals/I&O/Wt Last Vital Signs Temp 97.8 F 12/14/22 08:00 Pulse 79 12/14/22 12:00 Resp 15 12/14/22 12:00 BP 137/80 12/14/22 12:00 Pulse Ox 94 12/14/22 12:00 O2 Del Method 12/14/22 06:00 O2 Flow Rate 30 12/14/22 11:11 FiO2 50 12/14/22 11:11 12/14/22 12/14/22 12/14/22 06:59 14:59 22:59 Intake Total 240 / 240 Output Total 0 / 5380 Balance 0 / -5180 240 / 240 Weight last 48 hrs Weight 47.174 kg Weight 49.3 kg Weight 47.627 kg Weight 54.431 kg Physical Exam Narrative: Patient is awake alert, no acute distress, HEENT, clear to auscultation per report, S1-S2 regular rate and rhythm per report, no pedal edema per report Data 12/14/22 03:10 12/14/22 03:10 Micro: Microbiology 12/13/22 11:45 Blood Culture - Preliminary Blood NEGATIVE TO DATE 12/13/22 11:45 Blood Culture - Preliminary Blood NEGATIVE TO DATE A&P Assessment and plan (1) ESRD (end stage renal disease) on dialysis: Plan 1. End-stage renal disease: On TTS schedule as outpatient, s/p HD yesterday and next HD tomorrow 2. Hyperkalemia: Potassium was 6.1 on presentation, improved now 3. Acute on chronic respiratory failure: Multifactorial, volume overload noted, she also has bilateral loculated pleural effusions, may need thoracentesis if no improvement in oxygenation, will challenge dry weight with dialysis. Will likely run high tomorrow as well as Sunday 4. Hyponatremia: Mild, monitor Patient evaluated using audiovisual cart. Time spent 30 minutes Attestations Medical Necessity Statement*: continue medical management Coding Level of Care Code Acute Code for Chg Fwd Diagnoses ESRD (end stage renal disease) on dialysis N18.6; Z99.2
[2022-12-14 17:14] LABS: Glucose Point of Care 191 mg/dL (70-110)
[2022-12-14] MEDS: atorvastatin 40 mg Tablet PO (17:22)
[2022-12-14] MEDS: insulin glargine 100 units/1 mL 5 UNIT SUBCUT (17:23)
[2022-12-14] MEDS: donepezil 5 MG Tablet 10 MG PO (21:22)
[2022-12-14] MEDS: sennosides 8.6 mg Tablet 17.2 MG PO (21:22)
[2022-12-14] MEDS: amlodipine 10 mg Tablet PO (21:22)
[2022-12-15] VITALS (23 sets, daily range): BP systolic 122–168; BP diastolic 77–107; PULSE 73–99; RESP 12–39; TEMP 35.4–36.9; O2SAT 93–100; BMI 18.5
[2022-12-15] MEDS: TORSEmide 20 mg Tablet 100 MG PO (05:09)
[2022-12-15] MEDS: heparin 5,000 unit/mL INJ 1 mL 5000 UNIT SUBCUT ×2 (05:09→17:28)
[2022-12-15] MEDS: pantoprazole DR 40 mg Tablet PO (05:09)
[2022-12-15] MEDS: clopidogrel 75 mg Tablet PO (05:09)
[2022-12-15] MEDS: venlafaxine ER (24HR) 150 mg Capsule PO (05:09)
[2022-12-15 05:13] LABS: Basophils % 0.9 %; Eosinophils % 0.6 %; Hematocrit 38.2 % (37.0-47.0); Hemoglobin 11.9 g/dL (11.5-15.3); Lymphocytes # 0.8 10^3/uL (0.8-4.8); Mean Corpuscular HGB Conc 31.2 g/dL (30.0-36.0); Mean Corpuscular Hemoglobin 31.5 pg (28.0-34.0); Mean Corpuscular Volume 101.1 fl (81-99); Mean Platelet Volume 9.3 fL (7.4-10.4); Monocytes # 0.6 10^3/uL (0.2-0.9); Monocytes % 12.2 %; Neutrophils # 3.17 10^3/uL (1.8-7.7); Neutrophils % 68.1 %; Nucleated Red Blood Cells % 0 %; Platelet Count 402 10^3/cmm (130-400); Red Blood Count 3.78 10^6/uL (4.1-5.3); Red Cell Distribution Width 15.9 % (12.1-15.1); White Blood Count 4.7 10^3/uL (4.0-10.0)
[2022-12-15 05:37] LABS: Albumin Level 2.5 g/dL (3.5-5.2); Alkaline Phosphatase 313 U/L (35-105); Anion Gap 18.6 (5-19); Aspartate Amino Transferase 17 U/L (0-32); Blood Urea Nitrogen 57 mg/dL (8-23); Calcium 8.1 mg/dL (8.5-10.5); Carbon Dioxide 24 mmol/L (22-29); Chloride 96 mmol/L (98-107); Globulin 2.9 g/dL (1.3-4.6); Glomerular Filtration Rate 7.7 mL/min (90-130); Glucose 188 mg/dL (65-115); Osmolality Calculated 297 mOsm/kg (285-295); Potassium 5.6 mmol/L (3.5-5.1); Sodium 133 mmol/L (136-145); Total Bilirubin 0.2 mg/dL (0.15-1.2); Total Protein 5.4 g/dL (6.6-8.7)
[2022-12-15 05:49] LABS: Alanine Aminotransferase 20 U/L (0-33)
--- NOTE | 2022-12-15 08:25 | PC.HD ---
Patient ID'd/assessed. Per brake lining driller's verbal order, heparin 2000 units loading dose was instilled into venous port of HD catheter 5 minutes prior to treatment initiation. Dressing changed. Upon treatment initiation, machine arterial pressure was noted to be elevated to the point where RN was unable to meet ordered blood flow rate of 350 mL/minute. Lines were reversed; however, machine arterial pressure was also elevated in the reversed position. BFR lowered to 325 to keep AP within acceptable pressures.
[2022-12-15] MEDS: ondansetron 2 mg/ML SDV 2 mL 4 MG IVP ×2 (08:36→18:50)
[2022-12-15] MEDS: insulin glargine 100 units/1 mL 5 UNIT SUBCUT (08:42)
[2022-12-15 08:43] LABS: Glucose Point of Care 156 mg/dL (70-110)
[2022-12-15 11:25] LABS: Glucose Point of Care 125 mg/dL (70-110)
--- NOTE | 2022-12-15 15:40 | PC.NURSE ---
Patient arrived to med/surg 263.
--- NOTE | 2022-12-15 15:42 | XRR_ITS ---
PROCEDURE INFORMATION: Exam: XR Complete Acute Abdomen Series Including Chest Exam date and time: 12/15/2022 4:36 PM Age: 67 years old Clinical indication: Constipation TECHNIQUE: Imaging protocol: Radiologic exam. Complete acute abdomen series, including 2 or more views of the abdomen and a single view chest. COMPARISON: CT angio chest w abd pel w con 11/15/2022 6:03 PM FINDINGS: Tubes, catheters and devices: Tunneled right IJ dialysis catheter with tip over the right atrium. Lungs: Vascular congestion. Perihilar interstitial opacities. Bibasilar atelectasis. Pleural spaces: Large left and small right pleural effusions. No pneumothorax. Heart/Mediastinum: Cardiomegaly. Gastrointestinal tract: Normal. No bowel dilation. Intraperitoneal space: Normal. No free air. Organs: Multiple calcified uterine fibroids. Multiple calcifications in the kidneys. Vasculature: Diffuse arterial calcifications. Bones/joints: Sternotomy wires. Old proximal left humerus fracture. Age indeterminate distal left clavicle fracture. Soft tissues: Normal. XR/XR acute abdomen series [id number] IMPRESSION: 1. Nonspecific nonobstructive bowel gas pattern. 2. Large left and small right pleural effusions. 3. Congestive heart failure pattern with cardiomegaly.
--- NOTE | 2022-12-15 15:57 | PM.PN ---
Subjective Subjective: feels better s/p HD this AM Medications: Reviewed: Yes Vitals/I&O/Wt Last Vital Signs Temp 97.5 F L 12/15/22 12:56 Pulse 98 12/15/22 15:20 Resp 23 H 12/15/22 15:20 BP 157/98 12/15/22 15:20 Pulse Ox 96 12/15/22 15:20 O2 Del Method 12/15/22 15:20 O2 Flow Rate 2 12/15/22 15:20 FiO2 55 12/15/22 06:00 12/15/22 12/15/22 12/15/22 06:59 14:59 22:59 Intake Total 110 / 700 350 / 350 Output Total 0 / 0 3300 / 3300 Balance 110 / 700 -2950 / -2950 Weight last 48 hrs Weight 47 kg Weight 45.949 kg Weight 47.174 kg Weight 49.3 kg Physical Exam Narrative: Patient is awake alert, no acute distress, HEENT, clear to auscultation per report, S1-S2 regular rate and rhythm per report, no pedal edema per report Data 12/15/22 04:56 12/15/22 04:56 Micro: Microbiology 12/13/22 11:45 Blood Culture - Preliminary Blood NEGATIVE TO DATE 12/13/22 11:45 Blood Culture - Preliminary Blood NEGATIVE TO DATE A&P Assessment and plan (1) ESRD (end stage renal disease) on dialysis: Plan 1. End-stage renal disease: On TTS schedule as outpatient, s/p HD this Am , O2 requirement down to 2L 2. Hyperkalemia: Potassium was 6.1 on presentation, improved now 3. Acute on chronic respiratory failure: Multifactorial, volume overload noted, she also has bilateral loculated pleural effusions, may need thoracentesis if no improvement in oxygenation, will challenge dry weight with dialysis. Will likely run high tomorrow as well as Sunday 4. Hyponatremia: Mild, monitor Patient evaluated using audiovisual cart. Time spent 30 minutes Attestations Medical Necessity Statement*: continue medical management Coding Level of Care Code Acute Code for Chg Fwd Diagnoses ESRD (end stage renal disease) on dialysis N18.6; Z99.2
--- NOTE | 2022-12-15 16:28 | P.PN_ITS ---
Subjective Subjective: No acute events overnight. Patient underwent extra session of dialysis today. Switched over from heated high flow to high flow 10 L. Transitioned down to 7 L during the day. Patient states she is feeling better. Denies any nausea, vomiting, headache. Complaining of constipation though as per the nurses she had multiple soft bowel movements overnight. Has remained hemodynamically stable and afebrile. Medications: Reviewed: Yes Vitals/I&O/Wt Last Vital Signs Temp 97.5 F L 12/15/22 12:56 Pulse 98 12/15/22 15:20 Resp 23 H 12/15/22 15:20 BP 168/98 12/15/22 16:28 Pulse Ox 96 12/15/22 15:20 O2 Del Method 12/15/22 15:20 O2 Flow Rate 2 12/15/22 15:20 FiO2 55 12/15/22 06:00 12/15/22 12/15/22 12/15/22 06:59 14:59 22:59 Intake Total 110 / 700 350 / 350 Output Total 0 / 0 3300 / 3300 Balance 110 / 700 -2950 / -2950 Weight last 48 hrs Weight 47 kg Weight 45.949 kg Weight 47.174 kg Weight 49.3 kg Physical Exam Narrative: General: No acute distress, AO x3, on heated high flow 70% 30 L HEENT: PERRLA, pupils bilaterally equal and reactive Chest:Bronchial breath sounds b/l ,decreased air entry, equal good air entry bilaterally, no more fine basal crackles CVS: S1-S2 regular, no murmurs, no tachycardia, no gallops, no rubs Abdomen: Soft, nontender, no organomegaly, bowel sounds present, morbidly obese Neuro: No focal deficits, no facial deformity, AO x3, power 5/5 in all limbs Data 12/15/22 04:56 12/15/22 04:56 Micro: Microbiology 12/13/22 11:45 Blood Culture - Preliminary Blood NEGATIVE TO DATE 12/13/22 11:45 Blood Culture - Preliminary Blood NEGATIVE TO DATE A&P Assessment and plan (1) Missed dialysis: (2) Acute respiratory failure with hypoxia and hypercapnia: (3) End-stage renal disease needing dialysis: (4) Hyperkalemia: (5) Acute on chronic diastolic CHF (congestive heart failure): (6) Volume overload: (7) Troponin level elevated: (8) High anion gap metabolic acidosis: (9) S/P CABG (coronary artery bypass graft): (10) Uncontrolled diabetes mellitus: (11) Hypertension: Plan 67 female with past medical history of CAD post CABG with EF of 40%, systolic and diastolic congestive heart failure, end-stage renal disease on hemodialysis with history of noncompliance presented to the ER with difficulty in breathing after missing 2-3 sessions of dialysis 1 week. Acute hypoxic respiratory failure: Most likely in setting of congestive heart failure exacerbation from missing dialysis sessions. Patient does not have any leukocytosis, fever. Chest x-ray negative for any consolidation. Pneumonia so far less likely. Check sputum culture, respiratory viral panel, blood culture. For now hold off on antibiotics. High gap metabolic acidosis/hyperkalemia: In setting of end-stage renal disease hemodialysis. D50/10 units insulin. Monitor BMP postdialysis. Acute on chronic systolic and diastolic congestive heart failure: Last known EF of 20% with global LV hypokinesia with RVSP of 40. Continue home dose of torsemide and metolazone for now. CAD/post CABG: Cycle troponins. Baseline troponin elevated most likely in setting of type II [place] from stress secondary to missed dialysis and congestive heart failure. No active chest pain currently. Continue home dose of aspirin, statin, beta-shanthi. Can plan to add Imdur. Hypertension: Goal blood pressure less than 140 over 90 mmHg. Continue home dose of carvedilol, amlodipine. Most likely will stop losartan given history of noncompliance leading to hyperkalemia and switch to Imdur. Type 2 diabetes mellitus: History of labile blood sugars. Continue home dose of Lantus 5 units twice daily. Sliding scale low-dose protocol. Renal cardiac carb consistent dialysis diet. Analgesia: Home dose [place] 5 mg every 6 hourly as needed Glycemic control: Lantus 5 units twice daily, low-dose insulin protocol Nutrition: Renal diabetic dialysis diet CODE STATUS: Discussed in detail with the patient once again on previous admission. We discussed she continues to be noncompliant continues to make dialysis session on and off. We discussed that there is high chance of her having a cardiac arrest or respiratory failure leading to . She verbalized understanding and would want to do everything to keep herself alive. She states she is in a follow-up going forward. Full code. Will discuss CODE STATUS again in detail with patient's family at bedside. PUD prophylaxis: Protonix DVT prophylaxis: Heparin 5000 every 12 hourly. Discharge planning: Home with caregiver once medically stable Plan for the day: 1 more session of dialysis today. Wean oxygen supplementation keeping saturation over 90%. Monitor blood pressures. Goal blood pressure less than 140/90 mmHg. Continue amlodipine 10 mg daily. Increase Coreg to 25 mg twice daily. KATHY/ARB given hyperkalemia on admission, noncompliance as an outpatient to dialysis. Blood sugars better. Continue with insulin sliding scale premeals. Possible discharge in the next 24 hours as patient's oxygen supplementation continues to trend down. Transfer out of ICU to [facility]. This documentation was created by [employer] bladder tier software. Every effort was made to ensure accuracy of bladder tier. Any obvious errors or omissions should be clarified with the author of the document. Attestations Medical Necessity Statement*: Requires further hospitalization for management of hypoxic respiratory failure secondary to congestive heart failure in a patient with end-stage renal disease on hemodialysis with missed dialysis sessions. Diagnoses Missed dialysis Acute respiratory failure with hypoxia and hypercapnia J96.01; J96.02 End-stage renal disease needing dialysis N18.6; Z99.2 Hyperkalemia E87.5 Acute on chronic diastolic CHF (congestive heart failure) I50.33 Volume overload E87.70 Troponin level elevated R77.8 High anion gap metabolic acidosis E87.29 S/P CABG (coronary artery bypass graft) Z95.1 Uncontrolled diabetes mellitus E11.65 Hypertension I10
[2022-12-15 17:06] LABS: Glucose Point of Care 145 mg/dL (70-110)
[2022-12-15] MEDS: carvedilol 25 mg Tablet PO (17:28)
[2022-12-15] MEDS: docusate sodium 100 mg Capsule PO (17:28)
[2022-12-15] MEDS: atorvastatin 40 mg Tablet PO (17:28)
[2022-12-15] MEDS: donepezil 5 MG Tablet 10 MG PO (20:39)
[2022-12-15] MEDS: sevelamer 800 mg Tablet 1600 MG PO (20:39)
[2022-12-15] MEDS: sennosides 8.6 mg Tablet 17.2 MG PO (20:39)
[2022-12-15] MEDS: amlodipine 10 mg Tablet PO (20:39)
[2022-12-15] MEDS: LORazepam 0.5 mg Tablet PO (20:39)
--- NOTE | 2022-12-15 20:54 | PC.NURSE ---
Addendum entered by Elisha Kirby RN 12/15/22 21:37: Bed alarm is set. Addendum entered by Elisha Kirby RN 12/15/22 20:57: Patient attempting to contact motel in [place]. Patient states I wish I could figure out what motel that is. Nurse asked patient reasoning for needing to contact motel and patient states to figure out where those TV channels are at. Original Note: Patient asked what motel is this? [facility] oh[facility] ya [facility]. Patient is able to tell me month and year and why she is in the hospital.
[2022-12-15 21:46] LABS: Glucose Point of Care 134 mg/dL (70-110)
[2022-12-16] VITALS (7 sets, daily range): BP systolic 128–149; BP diastolic 77–84; PULSE 78–87; RESP 12–17; TEMP 36.4–36.6; O2SAT 93–98
[2022-12-16 01:33] LABS: Glucose Point of Care 168 mg/dL (70-110)
--- NOTE | 2022-12-16 01:35 | PC.NURSE ---
Patient is able to tell me the month and year, but states that we are at [facility]. When nurse states that we are in the hospital, she states oh, why? Bed alarm on. Will monitor.
--- NOTE | 2022-12-16 01:38 | PC.NURSE ---
Optifoam applied to sacral ulcer.
[2022-12-16] MEDS: clopidogrel 75 mg Tablet PO (05:41)
[2022-12-16] MEDS: pantoprazole DR 40 mg Tablet PO (05:41)
[2022-12-16] MEDS: venlafaxine ER (24HR) 150 mg Capsule PO (05:41)
[2022-12-16] MEDS: heparin 5,000 unit/mL INJ 1 mL 5000 UNIT SUBCUT (05:41)
[2022-12-16] MEDS: TORSEmide 20 mg Tablet 100 MG PO (05:41)
[2022-12-16 06:00] LABS: Basophils # 0.1 10^3/uL (0.0-0.1); Basophils % 1.1 %; Eosinophils # 0.1 10^3/uL (0.0-0.8); Eosinophils % 0.9 %; Hematocrit 41.1 % (37.0-47.0); Hemoglobin 12.7 g/dL (11.5-15.3); Lymphocytes # 1.3 10^3/uL (0.8-4.8); Lymphocytes % 24.4 %; Mean Corpuscular HGB Conc 30.9 g/dL (30.0-36.0); Mean Corpuscular Hemoglobin 31.5 pg (28.0-34.0); Mean Platelet Volume 9.4 fL (7.4-10.4); Monocytes # 0.7 10^3/uL (0.2-0.9); Monocytes % 13.9 %; Neutrophils # 3.16 10^3/uL (1.8-7.7); Neutrophils % 59.3 %; Nucleated Red Blood Cells % 0 %; Platelet Count 384 10^3/cmm (130-400); Red Blood Count 4.03 10^6/uL (4.1-5.3); Red Cell Distribution Width 15.9 % (12.1-15.1); White Blood Count 5.3 10^3/uL (4.0-10.0)
[2022-12-16 06:24] LABS: Alanine Aminotransferase 18 U/L (0-33); Albumin Level 2.6 g/dL (3.5-5.2); Alkaline Phosphatase 312 U/L (35-105); Aspartate Amino Transferase 19 U/L (0-32); Blood Urea Nitrogen 35 mg/dL (8-23); Calcium 8.5 mg/dL (8.5-10.5); Carbon Dioxide 25 mmol/L (22-29); Chloride 97 mmol/L (98-107); Globulin 2.9 g/dL (1.3-4.6); Glomerular Filtration Rate 11.1 mL/min (90-130); Glucose 169 mg/dL (65-115); Osmolality Calculated 290 mOsm/kg (285-295); Sodium 134 mmol/L (136-145); Total Bilirubin 0.2 mg/dL (0.15-1.2); Total Protein 5.5 g/dL (6.6-8.7)
[2022-12-16 06:50] LABS: Glucose Point of Care 174 mg/dL (70-110)
--- NOTE | 2022-12-16 08:54 | PC.SOCIAL ---
IMM update IMM updated with patient's daughter. Verbalized an understanding. Copy Pg 2 left at bedside. Initialled, dated, timed, and placed in chart.
--- NOTE | 2022-12-16 09:52 | PC.NURSE ---
Patient alert and oriented only to self. Facial symmetry intact, government documents librarian strength equal and strong, pulses regular. Physician notified of decrease in orientation. Order recieved to discontinue anxiety medication.
--- NOTE | 2022-12-16 10:52 | P.DS_ITS ---
Discharge Providers Date of Admission: 12/13/22 13:16 Date of Discharge: December 16, 2022 Attending Provider at Admission: Geovanni Fleming MD Attending Provider at Discharge: Geovanni Fleming MD Consults: Tele Nephrology Primary Care Provider: Zenon De Los Santos MD Diagnoses at Discharge Discharge Diagnosis (1) Missed dialysis: Status: Acute (2) Acute respiratory failure with hypoxia and hypercapnia: Status: Acute (3) End-stage renal disease needing dialysis: Status: Acute (4) Hyperkalemia: Status: Acute (5) Acute on chronic diastolic CHF (congestive heart failure): Status: Acute Permanent problem details: Echocardiogram 11/30 shows EF of 20% with global LV hypokinesia, RVSP of 40, abnormal diastolic functions (6) Volume overload: Status: Acute (7) Troponin level elevated: Status: Acute (8) High anion gap metabolic acidosis: Status: Acute (9) S/P CABG (coronary artery bypass graft): Status: Acute (10) Uncontrolled diabetes mellitus: Status: Acute (11) Hypertension: Status: Acute Reason for Visit Reason for Visit: generalized weakness, low o2 Hospital Course Hospital Course Cony Temple is a 67 year old female with past known her medical history of CAD post CABG, congestive systolic and diastolic heart failure with last known EF 1 month ago 20-25%, ESRD on hemodialysis, type 2 diabetes mellitus with labil e blood sugars, hypertension, chronic hypoxia requiring oxygen secondary to CHF, noncompliance, depression presented to the ER today because of difficulty in breathing which is getting worse for last 2 to 3 days.? As per the patient she missed at least left 2-3 sessions of dialysis because she was not feeling well.? She is feeling abdominal pain along with nausea hence she did not go for her dialysis sessions.? When EMS arrived at her house she was saturating in the mid 70s on 3 L. In the ER she was was placed on heated high flow and was given calcium gluconate for hyperkalemia. Blood work in the ER showed a white blood 5.2, hemoglobin of 14, ABG showing a pH of 7.34, PCO2 49.5, PO2 55.2 on 15 L nonrebreather, chemistry showing 131 sodium, potassium 6.4, BUN of 100, creatinine of 7 with baseline troponin 143, AST/ALT of 50/38 with alkaline phosphatase of 440 with proBNP of more than 70,000. Patient was under the hospital further evaluation and management of hypoxic respiratory failure in setting of congestive heart failure in setting of missed dialysis. She required multiple dialysis on the following days and with those her oxygen requirements continue to trend down and currently she has been doing well on room air. Her antihypertensives were given and hyperkalemia on admission but changed. She is not supposed to take losartan anymore. She is to continue taking her amlodipine 10 mg daily and the dose of Coreg has been increased to 25 mg twice daily. Physical Exam Narrative: General: No acute distress, AO x3, on RA HEENT: PERRLA, pupils bilaterally equal and reactive Chest:Bronchial breath sounds b/l ,decreased air entry, equal good air entry bilaterally, no more fine basal crackles CVS: S1-S2 regular, no murmurs, no tachycardia, no gallops, no rubs Abdomen: Soft, nontender, no organomegaly, bowel sounds present, morbidly obese Neuro: No focal deficits, no facial deformity, AO x3, power 5/5 in all limbs Discharge Data Studies Completed and Pending Completed Studies During Hospitalization Category Date Time Status XR acute abdomen series [id number] Routine Exams 12/15/22 15:42 Completed XR chest 1V portable [id number] Stat Exams 12/13/22 11:30 Completed Pending at discharge Category Date Time Status Blood Culture Stat Lab 12/13/22 11:45 Results Sputum Culture and Gram Stain Stat Lab 12/13/22 16:45 Uncollected Radiology Impressions Chest X-Ray 12/13/22 11:30 IMPRESSION: Large bilateral loculated pleural effusions and bibasilar atelectasis greater on the left side. No significant change since previous chest x-ray. Chest/Abdomen X-ray 12/15/22 15:42 IMPRESSION: 1. Nonspecific nonobstructive bowel gas pattern. 2. Large left and small right pleural effusions. 3. Congestive heart failure pattern with cardiomegaly. Laboratory Results WBC 5.3 10^3/uL (4.0-10.0) 12/16/22 04:54 RBC 4.03 10^6/uL (4.1-5.3) L 12/16/22 04:54 Hgb 12.7 g/dL (11.5-15.3) 12/16/22 04:54 Hct 41.1 % (37.0-47.0) 12/16/22 04:54 MCV 102.0 fl (81-99) H 12/16/22 04:54 MCH 31.5 pg (28.0-34.0) 12/16/22 04:54 MCHC 30.9 g/dL (30.0-36.0) 12/16/22 04:54 RDW 15.9 % (12.1-15.1) H 12/16/22 04:54 Plt Count 384 10^3/cmm (130-400) 12/16/22 04:54 MPV 9.4 fL (7.4-10.4) 12/16/22 04:54 Neut % (Auto) 59.3 % 12/16/22 04:54 Lymph % (Auto) 24.4 % 12/16/22 04:54 Isabella % (Auto) 13.9 % 12/16/22 04:54 Eos % (Auto) 0.9 % 12/16/22 04:54 Baso % (Auto) 1.1 % 12/16/22 04:54 Neut # (Auto) 3.16 10^3/uL (1.8-7.7) 12/16/22 04:54 Lymph # (Auto) 1.3 10^3/uL (0.8-4.8) 12/16/22 04:54 Isabella # (Auto) 0.7 10^3/uL (0.2-0.9) 12/16/22 04:54 Eos # (Auto) 0.1 10^3/uL (0.0-0.8) 12/16/22 04:54 Baso # (Auto) 0.1 10^3/uL (0.0-0.1) 12/16/22 04:54 Nucleated RBC % (auto) 0 % 12/16/22 04:54 Nucleated RBCs # 0.0 /100WBC 12/16/22 04:54 D-Dimer 1.77 ug/mIFEU (0-0.59) H 12/13/22 11:45 Specimen Type Arterial 12/13/22 11:30 Sample Site Radial, left 12/13/22 11:30 ABG pH 7.34 (7.35-7.45) L 12/13/22 11:30 ABG pCO2 49.5 mmHg (35-45) H 12/13/22 11:30 ABG pO2 55.2 mmHg (80.0-100.0) L 12/13/22 11:30 ABG HCO3 26.9 mmol/L (22-26) H 12/13/22 11:30 ABG O2 Saturation 84.9 12/13/22 11:30 ABG Base Excess 0.6 mmol/L (-2.0-2.0) 12/13/22 11:30 Tj Test Pos 12/13/22 11:30 A-a O2 Gradient 4.6 mmHg (5-10) L 12/13/22 11:30 Hematocrit 37.0 % (37-47) 12/13/22 11:30 Hgb O2 Saturation 83.0 % (95-100) L 12/13/22 11:30 Carboxyhemoglobin 1.8 %THgb (0.4-20.1) 12/13/22 11:30 Methemoglobin 0.5 % (0.4-1.5) 12/13/22 11:30 Total Hemoglobin 12.1 g/dL (12-16) 12/13/22 11:30 Sodium 135.0 mmol/L (131-143) 12/13/22 11:30 Potassium 6.0 mmol/L (3.5-5.0) H 12/13/22 11:30 Glucose 165.0 mg/dL (70-115) H 12/13/22 11:30 Ionized Calcium 1.2 mmol/L (1.1-1.4) 12/13/22 11:30 O2 Delivery Device Nrb 12/13/22 11:30 O2 Liters/Min 15.0 % 12/13/22 11:30 Packing Machine Tender ID Cak 12/13/22 11:30 Sodium 134 mmol/L (136-145) L 12/16/22 04:54 Potassium 5.0 mmol/L (3.5-5.1) 12/16/22 04:54 Chloride 97 mmol/L (98-107) L 12/16/22 04:54 Carbon Dioxide 25 mmol/L (22-29) 12/16/22 04:54 Anion Gap 17.0 (5-19) 12/16/22 04:54 BUN 35 mg/dL (8-23) H 12/16/22 04:54 Creatinine 4.0 mg/dL (0.5-0.9) H 12/16/22 04:54 GFR Calculation 11.1 mL/min (90-130) L 12/16/22 04:54 Glucose 169 mg/dL (65-115) H 12/16/22 04:54 POC Glucose 174 mg/dL (70-110) H 12/16/22 06:40 Calculated Osmolality 290 mOsm/kg (285-295) 12/16/22 04:54 Calcium 8.5 mg/dL (8.5-10.5) 12/16/22 04:54 Phosphorus 5.7 mg/dL (2.5-4.5) H 12/13/22 11:45 Magnesium 2.8 mg/dL (1.7-2.3) H 12/13/22 11:45 Iron 36 ug/dL (37-145) L 12/13/22 14:07 TIBC 220 mcg/dl 12/13/22 14:07 % Saturation 16.3 % (20-50) L 12/13/22 14:07 Unsat Iron Binding 184 ug/dL (112-347) 12/13/22 14:07 Total Bilirubin 0.2 mg/dL (0.15-1.2) 12/16/22 04:54 AST 19 U/L (0-32) 12/16/22 04:54 ALT 18 U/L (0-33) 12/16/22 04:54 Alkaline Phosphatase 312 U/L (35-105) H 12/16/22 04:54 Troponin T Baseline 143 ng/L (0-10) H* 12/13/22 11:45 Troponin T 120 Minute 129.9 ng/L (0-10) H 12/13/22 14:07 Delta Troponin T -13.1 ABS# (0-10) L 12/13/22 14:07 Troponin T Hi Sens 6Hr 117.0 ng/L (0-10) H 12/13/22 17:56 Troponin T Hi Sens 6Hr Delta -26.0 ng/L (0-12) L 12/13/22 17:56 NT-Pro-B Natriuret Pep > 45730 pg/mL (0-125) H 12/13/22 11:45 Total Protein 5.5 g/dL (6.6-8.7) L 12/16/22 04:54 Albumin 2.6 g/dL (3.5-5.2) L 12/16/22 04:54 Globulin 2.9 g/dL (1.3-4.6) 12/16/22 04:54 Procalcitonin 0.92 ng/mL (0-0.5) H 12/13/22 14:07 Nasal Influ A H1 2009 PCR Not detected (NOT DETECT) 12/13/22 18:55 Adenovirus (PCR) Not detected (NOT DETECT) 12/13/22 18:55 C. pneumoniae DNA (PCR) Not detected (NOT DETECT) 12/13/22 18:55 Coronavirus 229E (PCR) Not detected (NOT DETECT) 12/13/22 18:55 Human Metapneumovir PCR Not detected (NOT DETECT) 12/13/22 18:55 Influenza A (H1) PCR Not detected (NOT DETECT) 12/13/22 18:55 Influenza A (H3) PCR Not detected (NOT DETECT) 12/13/22 18:55 Influenza Type A (PCR) Not detected (NOT DETECT) 12/13/22 18:55 Influenza Type B (PCR) Not detected (NOT DETECT) 12/13/22 18:55 M. pneumoniae (PCR) Not detected (NOT DETECT) 12/13/22 18:55 Parainfluenza 1 (PCR) Not detected (NOT DETECT) 12/13/22 18:55 Parainfluenza 2 (PCR) Not detected (NOT DETECT) 12/13/22 18:55 Parainfluenza 3 (PCR) Not detected (NOT DETECT) 12/13/22 18:55 Parainfluenza 4 (PCR) Not detected (NOT DETECT) 12/13/22 18:55 RSV Type A (PCR) Not detected (NOT DETECT) 12/13/22 18:55 RSV Type B (PCR) Not detected (NOT DETECT) 12/13/22 18:55 Entero/Rhino (PCR) Not detected (NOT DETECT) 12/13/22 18:55 SARS-CoV-2 (PCR) Not detected (NOT DETECT) 12/13/22 18:55 Vitals Last Vital Signs Temp 98 F 12/16/22 08:00 Pulse 81 12/16/22 08:00 Resp 12 12/16/22 08:00 BP 136/77 12/16/22 08:00 Pulse Ox 96 12/16/22 08:00 O2 Del Method 12/16/22 04:00 O2 Flow Rate 1.5 12/16/22 04:00 FiO2 55 12/15/22 06:00 Discharge Plan Discharge Patient Disposition: Home Condition: Stable Prescriptions: Continued pantoprazole 40 mg Tablet,Delayed Release (Dr/Ec) 40 mg PO QAM venlafaxine 150 mg capsule,extended release 24hr 150 mg PO QAM torsemide 100 mg tablet 100 mg PO QAM sevelamer carbonate 800 mg tablet 1,600 mg PO TID metolazone 5 mg tablet 5 mg PO DAILY hydrocodone-acetaminophen 5-325 mg tablet 1 tab PO Q6H PRN (Reason: pain) 7 Days Qty: 28 0RF lorazepam 1 mg Tablet 1 mg PO TID PRN (Reason: Anxiety) insulin glargine [Lantus Solostar U-100 Insulin] 100 unit/mL (3 mL) insulin pen 5 unit SUBCUT BID donepezil 5 mg Tablet 10 mg PO BEDTIME Qty: 60 0RF aspirin 325 mg Tablet 325 mg PO BID amlodipine 10 mg tablet 10 mg PO BEDTIME Humalog KwikPen Insulin 100 unit/mL insulin pen See Rx Instructions .ROUTE .COMPLEX Rx Instructions: per sliding scale atorvastatin 40 mg Tablet 40 mg PO QPM clopidogrel 75 mg Tablet 75 mg PO QAM levothyroxine 75 mcg Tablet 37.5 mcg PO DAILY RenaPlex-D 800 mcg-12.5 mg -2,000 unit Tablet 1 tab PO QAM Changed carvedilol 12.5 mg Tablet 25 mg PO BID Qty: 120 0RF Rx Instructions: must administer with a meal/food Discontinued losartan 50 mg Tablet 50 mg PO DAILY Qty: 30 0RF Discharge Orders: Discharge Order (Routine); Ordered 12/16/22 Ordered By: Geovanni Fleming Referrals: Zenon De Los Santos MD [Primary Care Provider] - 7-10 days (Please call Sunday to schedule your follow up appointment with Dr. De Los Santos.) Discharge Diet: Cardiac and Diabetic Discharge Activity: Resume usual activity and Increase activity as tolerated Patient Instructions: Heart Failure (DC), End Stage Kidney Disease (DC), Opioid Safety Activity Restrictions/Additional Instructions: Please continue to follow-up with your primary care provider, oncology specialist. Please continue to follow-up with dialysis. Do not take losartan anymore. Dose of Coreg has been increased to 25 mg twice daily. Discharge Attestations Time Spent in Discharge Care*: greater than 30 min Specific Discharge Activities: educating patient, educating and/or supporting family/caregiver, discussing with pcp/other providers, discussing with patient case manager/social workers/dc planners, documenting/other paperwork and evaluating patient/reviewing data Status at Discharge: Cognitive status at discharge: cognitively intact , Behavioral status at discharge: cooperative , Functional status at discharge: bed bound , Overall status at discharge: patient is back to baseline Quality Metrics Clinical Quality Measures [ No reported AMI, CVA or VTE this stay] Coding Level of Care Code 51633 Total time (in minutes) for Discharge: 60 Diagnoses Missed dialysis Acute respiratory failure with hypoxia and hypercapnia J96.01; J96.02 End-stage renal disease needing dialysis N18.6; Z99.2 Hyperkalemia E87.5 Acute on chronic diastolic CHF (congestive heart failure) I50.33 Volume overload E87.70 Troponin level elevated R77.8 High anion gap metabolic acidosis E87.29 S/P CABG (coronary artery bypass graft) Z95.1 Uncontrolled diabetes mellitus E11.65 Hypertension I10
[2022-12-16 11:12] LABS: Glucose Point of Care 201 mg/dL (70-110)
--- NOTE | 2022-12-16 18:26 | PM.PN ---
Subjective Subjective: s/p Hd YESTERDAY Medications: Reviewed: Yes Vitals/I&O/Wt Last Vital Signs Temp 98 F 12/16/22 14:10 Pulse 84 12/16/22 14:10 Resp 14 12/16/22 14:10 BP 149/79 12/16/22 14:10 Pulse Ox 93 12/16/22 14:10 O2 Del Method 12/16/22 11:52 O2 Flow Rate 2 12/16/22 11:52 FiO2 55 12/15/22 06:00 Weight last 48 hrs Weight 41.73 kg Weight 47 kg Weight 45.949 kg Physical Exam Narrative: Patient is awake alert, no acute distress, HEENT, clear to auscultation per report, S1-S2 regular rate and rhythm per report, no pedal edema per report Data 12/16/22 04:54 12/16/22 04:54 A&P Assessment and plan (1) ESRD (end stage renal disease) on dialysis: Plan 1. End-stage renal disease: On TTS schedule as outpatient, , O2 requirement down to 2L 2. Hyperkalemia: Potassium was 6.1 on presentation, improved now 3. Acute on chronic respiratory failure: Multifactorial, volume overload noted, she also has bilateral loculated pleural effusions, may need thoracentesis if no improvement in oxygenation, will challenge dry weight with dialysis. 4. Hyponatremia: Mild, monitor Patient evaluated using audiovisual cart. Time spent 30 minutes Attestations Medical Necessity Statement*: per medicine Coding Level of Care Code Acute Code for Chg Fwd Diagnoses ESRD (end stage renal disease) on dialysis N18.6; Z99.2
== END 2022-12-16 14:11 | disposition home health service (06) | DRG 280 ==
LOC: ER 13:16 → ICU 14:58 → MEDSURG 12-15 15:36
PROVIDERS: Admitting Provider Student in an Organized Health Care Education/Training Program; Emergency Provider Emergency Medicine; PCP Internal Medicine; Visit Provider Student in an Organized Health Care Education/Training Program
DX: I13.2 Hypertensive heart and chronic kidney disease with heart failure and with stage 5 chronic kidney disease, or end stage renal disease (principal); I50.43 Acute on chronic combined systolic (congestive) and diastolic (congestive) heart failure; I21.A1 Myocardial infarction type 2; N18.6 End stage renal disease; J96.22 Acute and chronic respiratory failure with hypercapnia; J96.21 Acute and chronic respiratory failure with hypoxia; E87.1 Hypo-osmolality and hyponatremia; E87.20 Acidosis, unspecified; E11.22 Type 2 diabetes mellitus with diabetic chronic kidney disease; E11.65 Type 2 diabetes mellitus with hyperglycemia; Z99.2 Dependence on renal dialysis; Z91.15 Patient's noncompliance with renal dialysis; E11.43 Type 2 diabetes mellitus with diabetic autonomic (poly)neuropathy; K31.84 Gastroparesis; E87.5 Hyperkalemia; I25.10 Atherosclerotic heart disease of native coronary artery without angina pectoris; Z95.1 Presence of aortocoronary bypass graft; F32.A Depression, unspecified; Z79.891 Long term (current) use of opiate analgesic; Z79.4 Long term (current) use of insulin; Z79.02 Long term (current) use of antithrombotics/antiplatelets; E03.9 Hypothyroidism, unspecified
CPT/HCPCS: 12345; 36415; 36416; 36600; 71045; 74022; 80051; 80053; 82330; 82805; 82962; 83540; 83550; 83735; 83880; 84100; 84145; 84484; 85025; 85378; 87040; 87486; 87581; 87633; 90935; 93005; 94640; 96365; 96372; 96376; 99285; J0610; J1644; J1815; J2405; J7613; Q3014

== ENCOUNTER 2023-01-17 13:30 | Inpatient (IN) | payer MEDICARE, SELFPAY ==
[2023-01-17] VITALS (83 sets, daily range): BP systolic 90–131; BP diastolic 52–94; PULSE 43–113; RESP 12–29; TEMP 34.9–36.4; O2SAT 83–100; BMI 17.2
[2023-01-17 13:40] LABS: Glucose Point of Care 568 mg/dL (70-110)
--- NOTE | 2023-01-17 14:07 | XR_ITS ---
WS: [id number] EXAMINATION: XR chest 1V portable [id number] REASON FOR EXAM: AMS, hypothermia COMPARISON: 12/15/2022 ORDER DATE: 01/17/2023 2:13 PM TECHNIQUE: A single, portable frontal chest x-ray was obtained. X-RAY FINDINGS: Tunneled right IJ dialysis catheter with tip over the right atrium. Lungs: Minimal perihilar interstitial opacities left basilar opacity could be due to some underlying consolidation or atelectasis. Pleural spaces: Smaller bilateral pleural effusions. Right apical pleural thickening versus loculated fluid unchanged No pneumothorax. Heart/Mediastinum: Cardiomegaly. Post CABG change sternal wire sutures noted Vasculature: Diffuse arterial calcifications. Bones/joints: Old proximal left humerus fracture. Age indeterminate distal left clavicle fracture. Soft tissues: Normal. XR/XR chest 1V portable [id number] IMPRESSION: 1. Right apical pleural thickening and/or possibly small loculated effusion unc hanged 2. Small bilateral pleural effusions slightly larger left both smaller than pre vious with possibility of some underlying remaining left basal consolidation.. 3. Minimal pulmonary vascular congestion significantly less compared with previ ous with cardiomegaly.
--- NOTE | 2023-01-17 14:08 | W.ED.GENADLT ---
HPI - General Adult General: Chief complaint: General Medical Stated complaint: HIGH BLOOD SUGAR Time Seen by Provider: 01/17/23 13:42 History of Present Illness: 67-year-old female with a reported history of insulin-dependent diabetes, dementia, hypothyroidism, end-stage renal disease on dialysis, history of coronary artery bypass grafting, history of hypoxic and hypercapnic respiratory failure, history of CHF, history of falls, and many other comorbid conditions. She is here today with blood sugars over 500 and reported increase in altered mental status. She was found to have hypothermia on arrival with a temperature of only 94.5. The patient moans to anything she finds mildly noxious. Otherwise, she is not interacting. We were told that the patient missed her last dialysis yesterday because she was not feeling well. Review of Systems General: Reports: ROS unobtainable due to mental status PFSH ED PFSH: Medical History Acute on chronic diastolic CHF (congestive heart failure) Echocardiogram 11/30 shows EF of 20% with global LV hypokinesia, RVSP of 40, abnormal diastolic functions CAD in [place] artery Closed fracture of pubic ramus Depression End-stage renal disease needing dialysis ESRD on dialysis Fall Fracture acetabulum-closed Gastroparesis GERD (gastroesophageal reflux disease) Hyperlipidemia Hypertension Hypothyroidism Uncontrolled diabetes mellitus Surgical History (Updated 12/13/22 @ 14:33 by Geovanni Fleming MD) S/P CABG (coronary artery bypass graft) Social History Smoking and tobacco status: never smoked Alcohol intake: never Physical Exam Narrative: EXAM NARRATIVE: This is an ill-appearing 67-year-old female who does appear older than her stated age. She is deconditioned. She is laying right lateral decubitus with her eyes closed. She does not open her eyes to voice. She briefly opens them to noxious stimuli. She is moaning but not making any meaningful conversation. She does withdrawal each of her extremities to noxious stimuli. Her mouth is dry and it appears that she has not been doing any oral hygiene. Her pupils are round and reactive. Her neck is supple. She is not hyperventilating or having any cook ship small respirations. She does not appear to be in any respiratory distress. She has generalized abdominal tenderness with palpation but there is no distention or rigidity. She does have palpable radial pulses. She is wearing a warming blanket due to the finding of hypothermia. However, it is noted that she does not feel cold to the touch. She has diffuse muscular atrophy. She has edema in her ankles and feet. Her heart rate and rhythm are normal. There is a dialysis port entering the right chest. There is mild pallor but I did not see any wounds Course Vital Signs: Vital signs: Vital Signs Temperature 94.9 F L 01/17/23 15:59 Pulse Rate 64 01/17/23 17:06 Respiratory Rate 15 01/17/23 17:06 Blood Pressure 108/60 01/17/23 17:06 Pulse Oximetry 100 01/17/23 16:05 Oxygen Delivery Me thod Room Air 01/17/23 16:05 MDM - General Adult Medical Decision Making This is a ill-appearing 67-year-old female with what is reported to be acute on chronic mental status alteration. She has hyperglycemia. She will need to be evaluated for any diabetic ketoacidosis. She has lower extremity edema of uncertain chronicity. She has recently missed dialysis and needs to be screened for acidosis, electrolyte abnormalities, uremia, etc. Patient also needs to be worked up for possible sepsis as there is no other explanation that we have discovered for her hypothermia. We do not know what the ambient temperature was where she was resting at home--it could have been environmental. UPDATES: Severe hyperkalemia with peaked T waves on EKG--emergent dialysis, insulin/bicarb Severer metabolic acidosis with elevated BUN, elevated AG, low bicarb--part bc missed dialysis part DKA w/ hyperglycemia--start DKA protocol, consult to nephrology for emergent dialysis. Hypothermia ongoing--no source of sepsis, likely due to severe metabolic condition. CXR shows persistent but improved LLL effusion/infiltrate and RLL infiltrate. Discussed with hospitalist for admission. ? empiric abx. No source. Acidosis and hypothermia could be due to severe metabolic condition. Paged Nephrology at 1600. She's going to arrange for dialysis. Lab Data 01/17/23 14:20 01/17/23 14:20 Radiology Impressions Chest X-Ray 01/17/23 14:07 IMPRESSION: 1. Right apical pleural thickening and/or possibly small loculated effusion unchanged 2. Small bilateral pleural effusions slightly larger left both smaller than previous with possibility of some underlying remaining left basal consolidation.. 3. Minimal pulmonary vascular congestion significantly less compared with previous with cardiomegaly. Head CT 01/17/23 14:15 IMPRESSION: No acute intracranial abnormality. Laboratory Results WBC 6.8 10^3/uL (4.0-10.0) 01/17/23 14:20 RBC 3.91 10^6/uL (4.1-5.3) L 01/17/23 14:20 Hgb 12.0 g/dL (11.5-15.3) 01/17/23 14:20 Hct 37.3 % (37.0-47.0) 01/17/23 14:20 MCV 95.4 fl (81-99) 01/17/23 14:20 MCH 30.7 pg (28.0-34.0) 01/17/23 14:20 MCHC 32.2 g/dL (30.0-36.0) 01/17/23 14:20 RDW 14.3 % (12.1-15.1) 01/17/23 14:20 Plt Count 386 10^3/cmm (130-400) 01/17/23 14:20 MPV 10.7 fL (7.4-10.4) H 01/17/23 14:20 Neut % (Auto) 81.2 % 01/17/23 14:20 Lymph % (Auto) 14.7 % 01/17/23 14:20 [place] % (Auto) 3.4 % 01/17/23 14:20 Eos % (Auto) 0.0 % 01/17/23 14:20 Baso % (Auto) 0.1 % 01/17/23 14:20 Neut # (Auto) 5.52 10^3/uL (1.8-7.7) 01/17/23 14:20 Lymph # (Auto) 1.0 10^3/uL (0.8-4.8) 01/17/23 14:20 [place] # (Auto) 0.2 10^3/uL (0.2-0.9) 01/17/23 14:20 Eos # (Auto) 0.0 10^3/uL (0.0-0.8) 01/17/23 14:20 Baso # (Auto) 0.0 10^3/uL (0.0-0.1) 01/17/23 14:20 Nucleated RBC % (auto) 0 % 01/17/23 14:20 Nucleated RBCs # 0.0 /100WBC 01/17/23 14:20 Specimen Type Venous 01/17/23 14:20 Sample Site Not specified 01/17/23 14:20 Tj Test N/a 01/17/23 14:20 VBG pH 7.17 (7.32-7.42) L* 01/17/23 14:20 VBG pCO2 27.9 mmHg (41-51) L 01/17/23 14:20 VBG pO2 161.0 mmHg (25-40) H 01/17/23 14:20 VBG HCO3 10.2 mmol/L (24-28) L 01/17/23 14:20 VBG Base Excess -17.0 mmol/L (-3.0-3.0) L 01/17/23 14:20 VBG Hematocrit 36.4 % (37-47) L 01/17/23 14:20 O2 Delivery Device Not Reportable 01/17/23 14:20 Underground Electrician ID [email or web address] 01/17/23 14:20 Sodium 127 mmol/L (136-145) L 01/17/23 14:20 Potassium 6.9 mmol/L (3.5-5.1) H* 01/17/23 14:20 Chloride 84 mmol/L (98-107) L 01/17/23 14:20 Carbon Dioxide 8 mmol/L (22-29) L* 01/17/23 14:20 Anion Gap 41.9 (5-19) H 01/17/23 14:20 BUN 107 mg/dL (8-23) H* D 01/17/23 14:20 Creatinine 5.1 mg/dL (0.5-0.9) H 01/17/23 14:20 GFR Calculation 8.4 mL/min (90-130) L 01/17/23 14:20 Glucose 517 mg/dL (65-115) H* 01/17/23 14:20 POC Glucose 568 mg/dL (70-110) H* 01/17/23 13:35 Calculated Osmolality 321 mOsm/kg (285-295) H 01/17/23 14:20 Lactic Acid 5.9 mmol/L (0.5-2.2) H* 01/17/23 14:20 Calcium 8.7 mg/dL (8.5-10.5) 01/17/23 14:20 Magnesium 2.9 mg/dL (1.7-2.3) H 01/17/23 14:20 Total Bilirubin 0.2 mg/dL (0.15-1.2) 01/17/23 14:20 AST 36 U/L (0-32) H 01/17/23 14:20 ALT 35 U/L (0-33) H 01/17/23 14:20 Alkaline Phosphatase 252 U/L (35-105) H 01/17/23 14:20 Ammonia 58 umol/L (11-51) H 01/17/23 14:20 Total Protein 6.0 g/dL (6.6-8.7) L 01/17/23 14:20 Albumin 3.3 g/dL (3.5-5.2) L 01/17/23 14:20 Globulin 2.7 g/dL (1.3-4.6) 01/17/23 14:20 Serum Ketones Positive (Negative) H 01/17/23 14:20 Critical Care Time Critical Care Time: Attestation: Critical care time 30 minutes. Discharge Plan Discharge Patient Disposition: Admitted As Inpatient Admit Provider: Sunday Johnson Clinical Impression: ESRD (end stage renal disease) on dialysis, High anion gap metabolic acidosis, Uremia, Acute hyperkalemia, DKA (diabetic ketoacidosis), Hypothermia Condition: Stable Coding Level of Care Code ED Market Research Specialist for Vikas Osorio
--- NOTE | 2023-01-17 14:15 | CTR_ITS ---
PROCEDURE INFORMATION: Exam: CT Head Without Contrast Exam date and time: 01/17/2023 3:34 PM Age: 67 years old Clinical indication: Altered mental status/memory loss; Additional info: AMS, hypothermic, unclear cause TECHNIQUE: Imaging protocol: Computed tomography of the head without contrast. Radiation optimization: All CT scans at this facility use at least one of these dose optimization techniques: automated exposure control; mA and/or kV adjustment per patient size (includes targeted exams where dose is matched to clinical indication); or iterative reconstruction. REPORTING DATA: Count of CT and Cardiac NM exams in prior 12 months: This patient has received 5 known CTs and 0 known cardiac nuclear medicine studies in the 12 months prior to the current study. COMPARISON: CT head wo con* [id number] 10/17/2022 7:06 AM RADIATION DOSE METRICS: Total DLP (mGy-cm): 977.34 FINDINGS: Brain: No hemorrhage. No edema. Moderate diffuse cerebral atrophy and sequela of chronic small vessel ischemic disease. Old lacunar infarcts noted within the right basal ganglia. Redemonstrated old infarct involving the subcortical and deep white matter tracts of the right frontal/parietal lobes. No mass effect. Cerebral ventricles: No ventriculomegaly. Paranasal sinuses: Visualized sinuses are unremarkable. No fluid levels. Mastoid air cells: Visualized mastoid air cells are well aerated. Bones/joints: Unremarkable. No acute fracture. Soft tissues: Unremarkable. CT/CT head wo con* [id number] IMPRESSION: No acute intracranial abnormality.
[2023-01-17 14:33] LABS: Basophils % 0.1 %; Hematocrit 37.3 % (37.0-47.0); Lymphocytes % 14.7 %; Mean Corpuscular HGB Conc 32.2 g/dL (30.0-36.0); Mean Corpuscular Hemoglobin 30.7 pg (28.0-34.0); Mean Corpuscular Volume 95.4 fl (81-99); Mean Platelet Volume 10.7 fL (7.4-10.4); Monocytes # 0.2 10^3/uL (0.2-0.9); Monocytes % 3.4 %; Neutrophils # 5.52 10^3/uL (1.8-7.7); Neutrophils % 81.2 %; Nucleated Red Blood Cells % 0 %; Platelet Count 386 10^3/cmm (130-400); Red Blood Count 3.91 10^6/uL (4.1-5.3); Red Cell Distribution Width 14.3 % (12.1-15.1); White Blood Count 6.8 10^3/uL (4.0-10.0)
[2023-01-17 14:54] LABS: Calcium 8.7 mg/dL (8.5-10.5); Total Bilirubin 0.2 mg/dL (0.15-1.2)
[2023-01-17 14:55] LABS: Ammonia 58 umol/L (11-51)
[2023-01-17 15:07] LABS: Lactic Sepsis W/Reflex 5.9 mmol/L (0.5-2.2)
[2023-01-17 15:11] LABS: Blood Gas Sample Type Venous; HCO3 VBG 10.2 mmol/L (24-28); PCO2 VBG 27.9 mmHg (41-51); Venous Blood Gas Hematocrit 36.4 % (37-47)
[2023-01-17 15:16] LABS: pH VBG 7.17 (7.32-7.42)
[2023-01-17 15:18] LABS: Blood Gas Sample Site Not specified
[2023-01-17 15:25] LABS: Alanine Aminotransferase 35 U/L (0-33); Albumin Level 3.3 g/dL (3.5-5.2); Alkaline Phosphatase 252 U/L (35-105); Anion Gap 41.9 (5-19); Aspartate Amino Transferase 36 U/L (0-32); Chloride 84 mmol/L (98-107); Globulin 2.7 g/dL (1.3-4.6); Glomerular Filtration Rate 8.4 mL/min (90-130); Magnesium 2.9 mg/dL (1.7-2.3); Osmolality Calculated 321 mOsm/kg (285-295); Sodium 127 mmol/L (136-145)
[2023-01-17 15:30] LABS: Blood Urea Nitrogen 107 mg/dL (8-23); Carbon Dioxide 8 mmol/L (22-29); Potassium 6.9 mmol/L (3.5-5.1)
[2023-01-17 15:31] LABS: Glucose 517 mg/dL (65-115)
[2023-01-17 15:36] LABS: Ketone (Acetest) Serum Positive (Negative)
--- NOTE | 2023-01-17 15:49 | ECG_ITS ---
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 Measurements Intervals [place] Rate: 71 P: 0 DE: 0 QRS: -23 QRSD: 125 T: 138 QT: 470 QTc: 513 Interpretive Statements ATRIAL FIBRILLATION MODERATE INTRAVENTRICULAR CONDUCTION DELAY [105+ ms QRS DURATION, 80+ ms Q/S IN V1/V2, NO Q AND 60+ ms R IN I/aVL/V5/V6] ST DEVIATION AND MODERATE T-WAVE ABNORMALITY, CONSIDER LATERAL ISCHEMIA [-0.1+ mV T-WAVE IN I/aVL/V5/V6] Compared to ECG 12/13/2022 18:23:03 Intraventricular conduction delay now present Possible ischemia now present Sinus rhythm no longer present Atrial abnormality no longer present T-wave abnormality still present Electronically Signed On 01-17-2023 16:18:21 CDT by Dean Gilmore M.D. [id number]
[2023-01-17 16:15] LABS: Reflex Lactate Order REFLEX LACTIC ORDERD
--- NOTE | 2023-01-17 16:35 | P.HP_ITS ---
Providers/Chief Complaint Admitting Physician: Sunday Johnson MD Primary Care Provider: Zenon De Los Santos MD Chief Complaint: HIGH BLOOD SUGAR History of Present Illness Cony Temple is a 67 year old female with a past history of CABG, history of chronic respiratory failure, history of hypercapnia, history of NSTEMI, history of CAD, high for thyroidism, history of end-stage renal disease on dialysis, history of insulin-dependent type 2 diabetes mellitus, EF of 40%, who presents [facility] due to alteration of mentation. Patient's awake, does not respond to her name, opens her eyes, but falls back asleep, she is hypothermic on admission her temp was 94.5, blood pressure 108/60, pulse 64 respiratory 15, 100% on room air. Pupils equal round reactive to light, she withdraws from pain, maintaining her airway. According to ER provider patient missed dialysis yesterday because she was not feeling well. No family members at bedside. Patient was found to have DKA, with blood sugars over 500, anion gap of 41.9, bicarb of 8, potassium of lactic acid of 5.9, pH 7.17, ketones positive, hospitalist team was called for admission. Currently on a Jose hugger, Review of Systems General: Reports: ROS unobtainable due to mental status Medications/Allergies Home Medications Medication Instructions Recorded Confirmed Last Taken Type pantoprazole 40 mg tablet,delayed 40 mg PO QAM 08/21/21 01/17/23 12/12/22 Histo ry release atorvastatin 40 mg tablet 40 mg PO QPM 03/06/22 01/17/23 12/12/22 History clopidogrel 75 mg tablet 75 mg PO QAM 03/06/22 01/17/23 12/12/22 History levothyroxine 75 mcg tablet 37.5 mcg PO DAILY 03/06/22 01/17/23 12/12/22 History vit B,C-folic ac 800 mcg-zinc 12.5 1 tab PO QAM 03/06/22 01/17/23 12/12/22 History mg-selen-D3 2,000 unit-vit E tablet (RenaPlex-D) hydrocodone 5 mg-acetaminophen 325 1 tab PO Q6H PRN pain 7 days #28 10/17/22 01/17/23 Unknown Rx mg tablet tabs metolazone 5 mg tablet 5 mg PO DAILY 30 minutes before 10/17/22 01/17/23 12/12/22 History torsemide sevelamer carbonate 800 mg tablet 1,600 mg PO TID 10/17/22 01/17/23 12/12/22 History torsemide 100 mg tablet 100 mg PO QAM 10/17/22 01/17/23 12/12/22 History venlafaxine 150 mg 150 mg PO QAM 10/17/22 01/17/23 12/12/22 History capsule,extended release 24 hr insulin glargine 100 unit/mL (3 5 unit SUBCUT BID 11/15/22 01/17/23 12/12/22 History mL) subcutaneous pen (Lantus Solostar U-100 Insulin) lorazepam 1 mg tablet 1 mg PO TID PRN Anxiety 11/15/22 01/17/23 Unknown History donepezil 5 mg tablet 10 mg PO BEDTIME #60 tabs 11/18/22 01/17/23 12/12/22 Rx amlodipine 10 mg tablet 10 mg PO BEDTIME 12/13/22 01/17/23 12/12/22 History aspirin 325 mg tablet 325 mg PO BID 12/13/22 01/17/23 12/12/22 History insulin lispro 100 unit/mL See Rx Instructions .Route .COMPLEX 12/13/22 01/17/23 Unknown History subcutaneous pen (Humalog KwikPen (U-100) Insulin) carvedilol 12.5 mg tablet 25 mg PO BID #120 tabs 12/16/22 01/17/23 12/12/22 Rx Allergies Allergy/AdvReac Type Severity Reaction Status Date / Time azithromycin Allergy Unknown Verified 01/17/23 13:50 erythromycin base Allergy Unknown Verified 01/17/23 13:50 mycins Allergy Unknown Uncoded 01/17/23 13:50 PFSH Acute PFSH: Medical History Acute on chronic diastolic CHF (congestive heart failure) Echocardiogram 11/30 shows EF of 20% with global LV hypokinesia, RVSP of 40, abnormal diastolic functions CAD in [place] artery Closed fracture of pubic ramus Depression End-stage renal disease needing dialysis ESRD on dialysis Fall Fracture acetabulum-closed Gastroparesis GERD (gastroesophageal reflux disease) Hyperlipidemia Hypertension Hypothyroidism Uncontrolled diabetes mellitus Surgical History (Updated 12/13/22 @ 14:33 by Geovanni Fleming MD) S/P CABG (coronary artery bypass graft) Social History Smoking and tobacco status: never smoked Alcohol intake: never Vitals/I&O/Wt Last Vital Signs Temp 94.9 F L 01/17/23 15:59 Pulse 64 01/17/23 16:05 Resp 15 01/17/23 16:05 BP 108/60 01/17/23 16:05 Pulse Ox 100 01/17/23 16:05 O2 Del Method Room Air 01/17/23 16:05 Weight last 48 hrs Weight 45.359 kg Physical Exam Const: COMMON NORMALS: no acute distress EXAM LIMITATIONS: altered mental status NUTRITIONAL APPEARANCE: cachectic ORIENTATION/CONSCIOUSNESS: Yes awake and Yes confused; not oriented to person, not oriented to place and not oriented to time HENMT: COMMON NORMALS: normocephalic HEAD & SCALP: normocephalic Eye: OTHER: Pupils equal reactive to light Neck/C-Spine: COMMON NORMALS: no JVD Lymph: LYMPHATIC: no lymphadenopathy noted Chest: OTHER: Right chest dialysis catheter in place Resp: COMMON NORMALS: normal respiratory effort, No retractions, No use of accessory muscles and clear to auscultation bilaterally AUSCULTATION: clear to auscultation bilaterally Cardio: COMMON NORMALS: regular rate, regular rhythm, S1 normal heart sound present and S2 normal heart sound present RATE: regular rate RHYTHM: regular rhythm HEART SOUNDS: S1 normal heart sound present and S2 normal heart sound present GI: COMMON NORMALS: Normal to inspection, nondistended, normoactive bowel sounds present, Soft to palpation and non-tender PALPATION: Yes Soft to palpation : COMMON NORMALS: Yes no CVA tenderness Extremity: COMMON NORMALS: no calf tenderness and no pedal edema Neuro: OTHER: Does not follow neurologic testing Data 01/17/23 14:20 01/17/23 14:20 Micro: Microbiology 01/17/23 14:20 Blood Culture - Preliminary Blood SPECIMEN COLLECTED 01/17/23 14:20 Blood Culture - Preliminary Blood SPECIMEN COLLECTED A&P Assessment and plan (1) DKA (diabetic ketoacidosis): Qualifiers: Diabetes mellitus type: type 2 Diabetes mellitus complication detail: without coma Qualified Code(s): E11.10 - Type 2 diabetes mellitus with ketoacidosis without coma (2) High anion gap metabolic acidosis: (3) Lactic acidosis: (4) Acute encephalopathy: (5) Hyperkalemia: (6) End-stage renal disease needing dialysis: (7) Missed dialysis: (8) S/P CABG (coronary artery bypass graft): (9) Uremia: (10) CKD (chronic kidney disease): Qualifiers: Chronic kidney disease stage: unspecified stage Qualified Code(s): N18.9 - Chronic kidney disease, unspecified (11) Uncontrolled diabetes mellitus: (12) Acute renal failure superimposed on chronic kidney disease: Qualifiers: Acute renal failure type: unspecified Chronic kidney disease stage: unspecified stage Qualified Code(s): N17.9 - Acute kidney failure, unspecified; N18.9 - Chronic kidney disease, unspecified (13) Sepsis: Plan Diabetic ketoacidosis -DKA protocol -LR at 100 cc an hour -Start bicarb drip at 50 cc an hour, will likely stop as soon as she starts dialysis, continue in the meantime watch out for hypokalemia -Monitor BMP every 4 hours -Replace potassium if less than 4.5 -If blood sugar drops below 200 start D5 half-normal saline -Once anion gap is 12, will turn off drip -Monitor blood sugars closely every hour Lactic acidosis -Possibly combination of DKA, dehydration -However cannot rule out sepsis -UA currently pending -Chest x-ray cannot see left lung base, possible pneumonia? -We will do CT chest abdomen pelvis without contrast -Although she is not requiring any oxygen -We will get ABG the sputum culture, blood cultures -Start prophylactic vancomycin, Zosyn Hyperkalemia -Does have peaked T waves on EKG -Will receive 10 units IV push insulin in the emergency room -We will add on calcium gluconate -Will be dialyzed Sepsis -Source of infection possible left lower lobe pneumonia as I cannot see the base -Pro-Otilio, CRP pending -CT chest abdomen pelvis pending -Elevated lactic acid, low bicarb -Elevated LFTs, alk phos MYNOR on CKD -Missed dialysis, will be dialyzed today Serial EKGs serial troponins telemetry monitoring Acute encephalopathy likely multifactorial from DKA, lactic acidosis, dehydration, uremia, possible infection such as pneumonia, UA pending Elevated ammonia levels monitor, will consider lactulose Pseudohyponatremia, from hyperglycemia Transaminitis with elevated alk phos CT abdomen Hypothermia, secondary to DKA, lactic acidosis, hyperkalemia Full code Heparin for DVT prophylaxis Attestations Medical Necessity Statement*: Patient requires hospitalization, inpatient greater than 2 minutes, for diabetic ketoacidosis, lactic acidosis, acute encephalopathy uremia, CKD, uncontrolled type 2 diabetes mellitus, dehydration, hyperkalemia Coding Level of Care Code Critical Care >/= 30 minutes Critical care time (in minutes): 50 The high probability of a clinically significant, sudden or life threatening deterioration, as referenced in this documentation, required my full and direct attention, intervention and personal management. The critical care time shown is in addition to time spent performing any reported separately billable procedures and includes the following: [x] Data and vital sign review and interpretation [x ] Patient assessment, examination and intervention [x] Medication orders and management [x] Patient/Family updates as able [x] Care Coordination and Documentation. Diagnoses DKA (diabetic ketoacidosis) E11.10 Diabetes mellitus type: type 2 Diabetes mellitus complication detail: without coma High anion gap metabolic acidosis E87.29 Lactic acidosis E87.20 Acute encephalopathy G93.40 Hyperkalemia E87.5 End-stage renal disease needing dialysis N18.6; Z99.2 Missed dialysis S/P CABG (coronary artery bypass graft) Z95.1 Uremia N19 CKD (chronic kidney disease) N18.9 Chronic kidney disease stage: unspecified stage Uncontrolled diabetes mellitus E11.65 Acute renal failure superimposed on chronic kidney disease N17.9; N18.9 Acute renal failure type: unspecified Chronic kidney disease stage: unspecified stage Sepsis A41.9
[2023-01-17 17:09] LABS: Glucose Point of Care 386 mg/dL (70-110)
--- NOTE | 2023-01-17 17:13 | ECG_ITS ---
[facility] Test Date: 2023-01-17 Pat Name: Cony Temple Department: Room: ICU12 Gender: Female Congressional Representative: : 1955 Requested By: Sunday Johnson Order Number: [id number] Doug MD: Dean Gilmore M.D. Measurements Intervals [place] Rate: 64 P: 28 NM: 254 QRS: 26 QRSD: 134 T: 164 QT: 490 QTc: 507 Interpretive Statements SINUS RHYTHM WITH FIRST DEGREE AV BLOCK WITH OCCASIONAL SUPRAVENTRICULAR PREMATURE COMPLEXES POSSIBLE LEFT ATRIAL ENLARGEMENT [-0.1mV P-WAVE IN V1/V2] INTRAVENTRICULAR CONDUCTION DELAY [130+ ms QRS DURATION] Compared to ECG 01/17/2023 15:49:04 First degree AV block now present Atrial fibrillation no longer present T-wave abnormality no longer present Possible ischemia no longer present Electronically Signed On 01-17-2023 17:19:12 CDT by Dean Gilmore M.D. [id number]
[2023-01-17] MEDS: calcium gluconate 0.9% NaCL 1 GM/50 ML PREMIX IV ×2 (17:35→19:36)
[2023-01-17] MEDS: sodium bicarbonate 1 mEq/mL SDV 50mL 50 MEQ IVP (17:43)
[2023-01-17 17:48] LABS: ABG PCO2 32.8 mmHg (35-45); ABG PH Result 7.24 (7.35-7.45); Base Excess ABG -12.3 mmol/L (-2.0-2.0); Blood Gas Allen Test Pos; Blood Gas Operator Identificat CAK; Blood Gas Sample Site Radial, left; Blood Gas Sample Type Arterial; Oxygen Device NRB; PO2 ABG 96.8 mmHg (80.0-100.0)
[2023-01-17] MEDS: vancomycin 1,000 MG in sodium chloride 0.9% 250 ML 250 MG IV (17:52)
[2023-01-17] MEDS: lactated ringers 1,000 ML 100 ML IV (18:00)
[2023-01-17 18:02] LABS: Troponin(5th) Baseline 115 ng/L (0-10)
[2023-01-17 18:07] LABS: Procalcitonin 3.89 ng/mL (0-0.5); Thyroid Stimulating Hormone 11.05 uIU/mL (0.27-4.20)
[2023-01-17] MEDS: sodium bicarbonate 50 MEQ in sodium chloride 0.45% 1,000 ML IV (18:07)
[2023-01-17 18:33] LABS: C Reactive Protein 6.4 mg/L (0.0-4.9); Calcium 8.1 mg/dL (8.5-10.5); Chloride 89 mmol/L (98-107); Chol HDL Ratio 4.92 mg/dL (0.0-4.40); Cholesterol 192 mg/dL (0-200); Glomerular Filtration Rate 8.4 mL/min (90-130); Glucose 382 mg/dL (65-115); HDL Cholesterol 39 mg/dL (60-100); LDL Cholesterol Calculated 75 mg/dL (50-129); LDL HDL Ratio 1.92 RATIO (0.00-3.22); Osmolality Calculated 320 mOsm/kg (285-295); Sodium 130 mmol/L (136-145); Triglycerides 392 mg/dL (0-150)
[2023-01-17 18:41] LABS: Anion Gap 41.3 (5-19); NT Pro B Type Natriuretic Pept > 70000 pg/mL (0-125)
[2023-01-17 18:43] LABS: Potassium 7.3 mmol/L (3.5-5.1)
[2023-01-17 18:44] LABS: Blood Urea Nitrogen 109 mg/dL (8-23); Carbon Dioxide 7 mmol/L (22-29)
[2023-01-17] MEDS: insulin regular-human 250 UNIT in sodium chloride 0.9% 250 ML 9.88 UNIT IV (19:00)
[2023-01-17 19:09] LABS: Lactic Acid level (Lactate) 5.9 mmol/L (0.5-2.2)
[2023-01-17] MEDS: insulin regular-human 10 UNIT in SYRINGE 1 EACH 60 UNIT IVP (19:25)
--- NOTE | 2023-01-17 19:30 | PC.NURSE ---
Patient arrived to ICU 12 1647, See MAR for medication administration. Multiple IV attempts by 2 RN and NT, also using ultrasound. Unable to obtain IV access and maintain IV access when obtained. IO obtained Right tibia. Orders for PICC obtained. Patient remains responsive to pain, no verbal response. Frequent ventricular arrhythmia on monitor. Labs noted. Pads applied. Dialysis called and started.
[2023-01-17 20:06] LABS: Estmated Average Glucose 249; Hemoglobin A1C 10.3 % (4.0-6.0)
[2023-01-17 20:25] LABS: Troponin 5 2HR Delta -6.1 ABS# (0-10)
[2023-01-17 20:27] LABS: Troponin 5 2HR 108.9 ng/L (0-10)
--- NOTE | 2023-01-17 20:50 | XRR_ITS ---
PROCEDURE INFORMATION: Exam: XR Chest Exam date and time: 01/17/2023 7:59 PM Age: 67 years old Clinical indication: Device placement; Other: Picc line; Additional info: Picc placement TECHNIQUE: Imaging protocol: Radiologic exam of the chest. Views: 1 view. COMPARISON: CR XR acute abdomen series [id number] 12/15/2022 4:36 PM FINDINGS: Tubes, catheters and devices: Right-sided PICC line with tip perhaps going into the azygos vein or coiled in the superior vena cava, consider repositioning. Right central venous catheter tip in the superior vena cava. Lungs: Right lower lobe atelectasis versus infiltrate. Pleural spaces: Moderate left pleural effusion. Heart/Mediastinum: Cardiomegaly. Bones/joints: Sternotomy wires. XR/XR chest 1V portable [id number] IMPRESSION: 1. Right-sided PICC line with tip perhaps going into the azygos vein or coiled in the superior vena cava, consider repositioning. 2. Right central venous catheter tip in the superior vena cava. 3. Cardiomegaly. 4. Sternotomy wires. 5. Moderate left pleural effusion. 6. Right lower lobe atelectasis versus infiltrate.
[2023-01-17 20:59] LABS: Free T4 Free Thyroxine 0.46 ng/dL (0.82-1.77)
[2023-01-17 21:11] LABS: Cortisol Random 26.73 ug/dL (2.47-19.5); Hepatitis B Core AB, Total Non-Reactive (Nonreactive); Hepatitis B Surface Antigen Non-Reactive (Nonreactive)
--- NOTE | 2023-01-17 21:13 | PM.CONSULT ---
Providers/Reason For Consult Consulting Physician/Specialty*: kommana/Nephrology Reason for Consult*: ESRD Attending Physician: Sunday Johnson MD Primary Care Provider: Zenon De Los Santos MD History of Present Illness History of Present Illness Cony Temple is a 67 year old female Patient is a 67-year-old female with past medical history of coronary artery disease status post CABG, history of end-stage renal disease on dialysis, diabetes, hypertension presented to the emergency department due to altered mental status. Patient was noted that she missed dialysis yesterday. Patient was found to be in DKA with blood sugars over 500s, bicarbonate of 8 potassium elevated to 6.9. Patient is getting admitted to ICU. Review of Systems Narrative: negative Medications/Allergies Home Medications Medication Instructions Recorded Confirmed Last Taken Type pantoprazole 40 mg tablet,delayed 40 mg PO QAM 08/21/21 01/17/23 12/12/22 History release atorvastatin 40 mg tablet 40 mg PO QPM 03/06/22 01/17/23 12/12/22 History clopidogrel 75 mg tablet 75 mg PO QAM 03/06/22 01/17/23 12/12/22 History levothyroxine 75 mcg tablet 37.5 mcg PO DAILY 03/06/22 01/17/23 12/12/22 History vit B,C-folic ac 800 mcg-zinc 12.5 1 tab PO QAM 03/06/22 01/17/23 12/12/22 History mg-selen-D3 2,000 unit-vit E tablet (RenaPlex-D) hydrocodone 5 mg-acetaminophen 325 1 tab PO Q6H PRN pain 7 days #28 10/17/22 01/17/23 Unknown Rx mg tablet tabs metolazone 5 mg tablet 5 mg PO DAILY 30 minutes before 10/17/22 01/17/23 12/12/22 History torsemide sevelamer carbonate 800 mg tablet 1,600 mg PO TID 10/17/22 01/17/23 12/12/22 History torsemide 100 mg tablet 100 mg PO QAM 10/17/22 01/17/23 12/12/22 History venlafaxine 150 mg 150 mg PO QAM 10/17/22 01/17/23 12/12/22 History capsule,extended release 24 hr insulin glargine 100 unit/mL (3 5 unit SUBCUT BID 11/15/22 01/17/23 12/12/22 History mL) subcutaneous pen (Lantus Solostar U-100 Insulin) lorazepam 1 mg tablet 1 mg PO TID PRN Anxiety 11/15/22 01/17/23 Unknown History donepezil 5 mg tablet 10 mg PO BEDTIME #60 tabs 11/18/22 01/17/23 12/12/22 Rx amlodipine 10 mg tablet 10 mg PO BEDTIME 12/13/22 01/17/23 12/12/22 History aspirin 325 mg tablet 325 mg PO BID 12/13/22 01/17/23 12/12/22 History insulin lispro 100 unit/mL See Rx Instructions .Route .COMPLEX 12/13/22 01/17/23 Unknown History subcutaneous pen (Humalog KwikPen (U-100) Insulin) carvedilol 12.5 mg tablet 25 mg PO BID #120 tabs 12/16/22 01/17/23 12/12/22 Rx Allergies Allergy/AdvReac Type Severity Reaction Status Date / Time azithromycin Allergy Unknown Verified 01/17/23 13:50 erythromycin base Allergy Unknown Verified 01/17/23 13:50 mycins Allergy Unknown Uncoded 01/17/23 13:50 Current Medications Generic Name Dose Route Start Last Admin Trade Name Freq PRN Reason Stop Dose Admin Aspirin 325 mg 01/17/23 18:00 01/17/23 17:24 Aspirin 325 Mg Tablet PO Not Given BID ALYSSA Sodium Bicarbonate 50 meq/ 1,050 mls @ 50 mls/hr 01/17/23 18:00 01/17/23 19:45 Sodium Chloride IV 0 mls/hr .Q21H ALYSSA Infusion Amiodarone HCl 900 mg/ 518 mls @ 17.267 mls/hr 01/17/23 18:30 01/17/23 18:40 Dextrose/ IV Miscellaneous IV 0.5 mg/min Supplies CONT ALYSSA 17.27 mls/hr Administration 0.5 MG/MIN PFSH Acute PFSH: Medical History Acute on chronic diastolic CHF (congestive heart failure) Echocardiogram 11/30 shows EF of 20% with global LV hypokinesia, RVSP of 40, abnormal diastolic functions CAD in [place] artery Closed fracture of pubic ramus Depression End-stage renal disease needing dialysis ESRD on dialysis Fall Fracture acetabulum-closed Gastroparesis GERD (gastroesophageal reflux disease) Hyperlipidemia Hypertension Hypothyroidism Uncontrolled diabetes mellitus Surgical History (Updated 12/13/22 @ 14:33 by Geovanni Fleming MD) S/P CABG (coronary artery bypass graft) Social History Smoking and tobacco status: never smoked Alcohol intake: never Vitals/I&O/Wt Last Vital Signs Temp 97 F L 01/17/23 20:15 Pulse 75 01/17/23 20:15 Resp 29 H 01/17/23 19:30 BP 91/54 01/17/23 20:15 Pulse Ox 100 01/17/23 20:15 O2 Del Method Room Air 01/17/23 20:15 01/17/23 01/17/23 01/17/23 06:59 14:59 22:59 Intake Total 606.767 / 606.767 Balance 606.767 / 606.767 Weight last 48 hrs Weight 42.638 kg Weight 45.359 kg Physical Exam Narrative: awake, no distress ' + edema Data 01/18/23 01:00 01/18/23 05:30 Micro: Microbiology 01/17/23 14:20 Blood Culture - Preliminary Blood SPECIMEN COLLECTED 01/17/23 14:20 Blood Culture - Preliminary Blood SPECIMEN COLLECTED A&P Assessment and plan (1) End-stage renal disease needing dialysis: Plan 1. End-stage renal disease: Missed dialysis, patient now with hyperkalemia as well as volume overload. Hemodialysis today 2. Hyperkalemia: HD as above, should improve with insulin drip also, low potassium diet 3. High anion gap metabolic acidosis: Due to DKA, 4. History of hypertension: Blood pressure borderline low, monitor 5. Hyponatremia: Sodium 127, pseudohyponatremia from high glucose Patient evaluated using audiovisual cart. Time spent 45 minutes Consult Attestations Medical Necessity Statement: per medicine Coding Level of Care Code Acute Code for Chg Fwd Diagnoses End-stage renal disease needing dialysis N18.6; Z99.2
--- NOTE | 2023-01-17 21:20 | PC.NURSE ---
COnsulted by house charge for picc placement. RUE scanned with US an basilic vein was the best target. Vein was straight, 4 mm, an free of visible clot. Pt drapped in usual sterile fashion, lidocaine injected, vein accessed, an picc floated into position. Device advanced without resistance, flushed and aspirated with ease. Device secured with sterile dressing, EBL < 10mL. Chest XR obtained and is pending radiologist confirmation. Patient tolerated procedure well.
[2023-01-17] MEDS: dextrose 5%-lactated ringers 1,000 ML 100 ML IV (21:22)
[2023-01-17] MEDS: heparin 5,000 unit/mL INJ 1 mL 5000 UNIT SUBCUT (21:31)
[2023-01-17 21:32] LABS: Hepatitis C Virus Antibody Non-Reactive (Nonreactive)
[2023-01-17 21:39] LABS: Glucose Point of Care 335 mg/dL (70-110)
[2023-01-17 21:39] LABS: Glucose Point of Care 226 mg/dL (70-110)
[2023-01-17 21:40] LABS: Glucose Point of Care 146 mg/dL (70-110)
[2023-01-17 21:59] LABS: T3 Free 0.5 PG/ML (2.0-4.4)
[2023-01-17 22:21] LABS: Anion Gap 19.5 (5-19); Blood Urea Nitrogen 31 mg/dL (8-23); Calcium 8.4 mg/dL (8.5-10.5); Carbon Dioxide 24 mmol/L (22-29); Chloride 93 mmol/L (98-107); Glomerular Filtration Rate 26.2 mL/min (90-130); Glucose 125 mg/dL (65-115); Osmolality Calculated 284 mOsm/kg (285-295); Potassium 3.5 mmol/L (3.5-5.1); Sodium 133 mmol/L (136-145)
[2023-01-17 22:25] LABS: Troponin 5 6HR Delta -6.6 ng/L (0-12)
[2023-01-17 22:27] LABS: Troponin 5 6HR 108.4 ng/L (0-10)
[2023-01-17 22:27] LABS: Glucose Point of Care 119 mg/dL (70-110)
[2023-01-17] MEDS: piperacillin-tazobactam 3.375 GM in sodium chloride 0.9% (plus) 50 ML IV (22:36)
[2023-01-17] MEDS: vancomycin 750 MG in sodium chloride 0.9% 250 ML 250 MG IV (22:36)
--- NOTE | 2023-01-17 23:08 | ECG_ITS ---
[facility] Test Date: 2023-01-17 Pat Name: Cony Temple Department: Room: ICU12 Gender: Female Fire Systems Inspector: : 1955 Requested By: Sunday Johnson Order Number: [id number] Doug MD: Dean Gilmore M.D. Measurements Intervals [place] Rate: 84 P: 72 PA: 216 QRS: 22 QRSD: 102 T: 162 QT: 438 QTc: 521 Interpretive Statements SINUS RHYTHM POSSIBLE LEFT ATRIAL ENLARGEMENT [-0.1mV P-WAVE IN V1/V2] ST DEVIATION AND MODERATE T-WAVE ABNORMALITY, CONSIDER LATERAL ISCHEMIA [-0.1+ mV T-WAVE IN I/aVL/V5/V6] Compared to ECG 01/17/2023 17:13:46 T-wave abnormality now present Possible ischemia now present Sinus rhythm no longer present First degree AV block no longer present Intraventricular conduction delay no longer present Electronically Signed On 01-18-2023 7:37:42 CDT by Dean Gilmore M.D. [id number]
[2023-01-17 23:19] LABS: Glucose Point of Care 106 mg/dL (70-110)
[2023-01-17 23:52] LABS: Urine Appearance Cloudy (CLEAR); Urine Color Yellow (Yellow); pH Urine 8 (5-7)
[2023-01-17 23:53] LABS: Add Urine Microscopic? YES; Bacteria Urine 3+ /hpf; Bilirubin Urine Neg (Negative); Blood Urine 2+ (Negative); Glucose Urine UA Trace (Normal); Ketones Urine 1+ (Negative); Leukocyte Esterase Urine 2+ (Negative); Mucus Urine 2+ /hpf; Nitrate Urine Negative (Negative); Protein Urine Neg (Negative); Squamous Epithelial Cell Urine 0-4 /hpf (0-5); Sulfosalicylic Acid Urine Positive (Negative); Urobilinogen Urine Neg (Negative); WBC Urine 80-100 /hpf (0-5)
[2023-01-17 23:55] LABS: Add Urine Culture? No
[2023-01-18] VITALS (87 sets, daily range): BP systolic 99–137; BP diastolic 61–92; PULSE 70–110; RESP 2–29; TEMP 36.3–37.1; O2SAT 89–99; BMI 16.5
[2023-01-18 00:35] LABS: Glucose Point of Care 85 mg/dL (70-110)
[2023-01-18 01:07] LABS: Basophils % 0.1 %; Eosinophils % 0.4 %; Hemoglobin 9.6 g/dL (11.5-15.3); Lymphocytes # 1.8 10^3/uL (0.8-4.8); Lymphocytes % 25.3 %; Mean Corpuscular HGB Conc 33.1 g/dL (30.0-36.0); Mean Corpuscular Hemoglobin 30.3 pg (28.0-34.0); Mean Corpuscular Volume 91.5 fl (81-99); Mean Platelet Volume 9.9 fL (7.4-10.4); Monocytes # 0.8 10^3/uL (0.2-0.9); Monocytes % 10.5 %; Neutrophils # 4.57 10^3/uL (1.8-7.7); Neutrophils % 63.1 %; Nucleated Red Blood Cells % 0 %; Platelet Count 268 10^3/cmm (130-400); Red Blood Count 3.17 10^6/uL (4.1-5.3); Red Cell Distribution Width 13.8 % (12.1-15.1); White Blood Count 7.2 10^3/uL (4.0-10.0)
[2023-01-18 01:23] LABS: Ammonia 40 umol/L (11-51); Lactic Sepsis W/Reflex 2.5 mmol/L (0.5-2.2)
[2023-01-18 01:31] LABS: Glucose Point of Care 78 mg/dL (70-110)
[2023-01-18 02:25] LABS: Procalcitonin 3.53 ng/mL (0-0.5)
[2023-01-18 02:38] LABS: Blood Urea Nitrogen 48 mg/dL (8-23); C Reactive Protein 5.8 mg/L (0.0-4.9); Calcium 7.9 mg/dL (8.5-10.5); Carbon Dioxide 24 mmol/L (22-29); Chloride 97 mmol/L (98-107); Creatine Phosphokinase 21 U/L (26-192); Glomerular Filtration Rate 17.5 mL/min (90-130); Glucose 74 mg/dL (65-115); Osmolality Calculated 291 mOsm/kg (285-295); Phosphorus 3.7 mg/dL (2.5-4.5); Sodium 135 mmol/L (136-145)
[2023-01-18 02:39] LABS: Anion Gap 19.1 (5-19); Potassium 5.1 mmol/L (3.5-5.1)
[2023-01-18 02:41] LABS: Glucose Point of Care 75 mg/dL (70-110)
[2023-01-18 02:48] LABS: NT Pro B Type Natriuretic Pept > 70000 pg/mL (0-125)
[2023-01-18 02:51] LABS: Ferritin 2284 ng/mL (15-150)
[2023-01-18 02:52] LABS: Reflex Lactate Order REFLEX LACTIC ORDERD
[2023-01-18 03:35] LABS: Glucose Point of Care 155 mg/dL (70-110)
[2023-01-18 04:40] LABS: Lactic Acid level (Lactate) 4.6 mmol/L (0.5-2.2)
[2023-01-18 04:41] LABS: Glucose Point of Care 122 mg/dL (70-110)
[2023-01-18 05:41] LABS: Glucose Point of Care 121 mg/dL (70-110)
[2023-01-18] MEDS: dextrose 10% 1,000 ML 125 ML IV (05:45)
[2023-01-18 06:08] LABS: Blood Urea Nitrogen 49 mg/dL (8-23); Calcium 7.9 mg/dL (8.5-10.5); Carbon Dioxide 22 mmol/L (22-29); Chloride 95 mmol/L (98-107); Glomerular Filtration Rate 14.9 mL/min (90-130); Glucose 113 mg/dL (65-115); Osmolality Calculated 288 mOsm/kg (285-295); Sodium 132 mmol/L (136-145)
[2023-01-18 06:15] LABS: Anion Gap 21.1 (5-19); Potassium 6.1 mmol/L (3.5-5.1)
[2023-01-18 06:52] LABS: ABG PH Result 7.46 (7.35-7.45); Arterial Blood Gas Hematocrit 30.5 % (37-47); Base Excess ABG -1.5 mmol/L (-2.0-2.0); Blood Gas Sample Site Brachial, right; HCO3 ABG 21.6 mmol/L (22-26); Oxygen Device ROOM AIR
[2023-01-18 06:52] LABS: Glucose Point of Care 149 mg/dL (70-110)
--- NOTE | 2023-01-18 06:59 | PC.NURSE ---
Physician Communication At around 1936, patient's right upper arm swollen around IV site and IV sluggish upon flushing. No access available for bicarb and LR drips. PICC team en route to place PICC line access. Dr. Demarco notified of paused medications as well as presence of pressure injuries on sacrum and left heel. Order received to place optifoam on ulcers until evaluation of day team. At approximately 2215, chest xray results revealed possible coiling of PICC line; PICC line did draw blood return and and flush fine. Dr. Demarco notified and order received to contact PICC team for confirmation of placement. PICC pulp mill team leader Randy stated that he believed the PICC had good placement and that after insertion the first xray did show coiling, so the catheter was repositioned and a new xray taken. Xray contacted and vrad notified of second xray taken previously; addendum received confirming placement of access. Around 0100, Patient's blood sugar and potassium decreasing at [address] Demarco notified; order received to pause insulin drip and obtain a stat BMP now. At 0300, patient's blood sugar decreased further at 76. Order received from Dr. Demarco to continue to hold insulin and administer an 1 amp of d50 now. Dr. Demarco notified of blood sugar following amp; BMP to be received 4 hours following last lab draw. At 0445, blood sugar 122; order received from Dr. Demarco to initiate D5NS @ 100 ml/hr in place of D5LR. At 0533, Dr. Demarco on the unit and orders received to replace D5NS with D10 @ 100ml/hr and to restart insulin drip at 0.5 ml/hr, in addition to stopping the bicarb drip. At 0640, Dr. Johnson called for update on patient; order received to stop D10 and start D51/2NS @ 125 ml/HR. See MAR for details.
[2023-01-18] MEDS: dextrose 5%-sod chloride 0.45% 1,000 ML 125 ML IV ×2 (07:15→16:03)
[2023-01-18 08:02] LABS: Glucose Point of Care 136 mg/dL (70-110)
[2023-01-18] MEDS: amiodarone 200 mg Tablet PO (08:17)
[2023-01-18] MEDS: liothyronine 5 mcg Tablet 10 MCG PO (08:17)
[2023-01-18] MEDS: aspirin 325 mg Tablet PO (08:17)
[2023-01-18] MEDS: levothyroxine 50 mcg Tablet PO (08:17)
[2023-01-18] MEDS: fenofibrate 145 mg Tablet PO (08:17)
[2023-01-18] MEDS: heparin 5,000 unit/mL INJ 1 mL 5000 UNIT SUBCUT ×2 (08:18→20:37)
[2023-01-18 08:55] LABS: Glucose Point of Care 411 mg/dL (70-110)
[2023-01-18 08:55] LABS: Glucose Point of Care 108 mg/dL (70-110)
[2023-01-18 09:53] LABS: Lactic Sepsis W/Reflex 3.7 mmol/L (0.5-2.2)
[2023-01-18 09:58] LABS: Anion Gap 22.7 (5-19); Blood Urea Nitrogen 50 mg/dL (8-23); Carbon Dioxide 18 mmol/L (22-29); Chloride 96 mmol/L (98-107); Glomerular Filtration Rate 15.5 mL/min (90-130); Glucose 111 mg/dL (65-115); Lipase 9 U/L (13-60); Osmolality Calculated 288 mOsm/kg (285-295); Potassium 4.7 mmol/L (3.5-5.1); Sodium 132 mmol/L (136-145)
--- NOTE | 2023-01-18 10:06 | PC.NURSE ---
Insulin drip ordered stop, Dr. Johnson. See MAR and Paper documentation.
[2023-01-18 10:14] LABS: Glucose Point of Care 99 mg/dL (70-110)
--- NOTE | 2023-01-18 11:04 | PM.PN ---
Subjective Subjective: no new complaints Medications: Reviewed: Yes Vitals/I&O/Wt Last Vital Signs Temp 98.8 F 01/18/23 07:30 Pulse 88 01/18/23 10:15 Resp 14 01/18/23 10:15 BP 119/73 01/18/23 10:15 Pulse Ox 96 01/18/23 10:15 O2 Del Method Room Air 01/18/23 10:15 01/17/23 01/18/23 01/18/23 22:59 06:59 14:59 Intake Total 987.706 / 292.735 6102.008 / 2379.714 198.992 / 198.992 Output Total 3307 / 3307 Balance -2319.294 / -2319.294 1392.008 / -927.286 198.992 / 198.992 Weight last 48 hrs Weight 40.959 kg Weight 41.8 kg Weight 42.638 kg Weight 45.359 kg Physical Exam Narrative: awake, no distress ' + edema Urinary Catheter Management: Dickson: Cath Placed During This Visit: yes Reason for Continuing Indwelling Catheter: Accurate Measurement of Urinary Output in Critically Ill Patients Urinary Catheter Date of Insertion: 01/17/23 Urinary Catheter Time of Insertion: 22:15 Data 01/18/23 01:00 01/18/23 08:41 Micro: Microbiology 01/17/23 14:20 Blood Culture - Preliminary Blood SPECIMEN COLLECTED 01/17/23 14:20 Blood Culture - Preliminary Blood SPECIMEN COLLECTED A&P Assessment and plan (1) End-stage renal disease needing dialysis: Plan 1. End-stage renal disease: Missed dialysis, patient now with hyperkalemia as well as volume overload. Hemodialysis yesterday and again today 2. Hyperkalemia: HD as above, should improve with insulin drip also, low potassium diet 3. High anion gap metabolic acidosis: Due to DKA, 4. History of hypertension: Blood pressure borderline low, monitor 5. Hyponatremia: Sodium 127, pseudohyponatremia from high glucose Patient evaluated using audiovisual cart. Time spent 45 minutes Attestations Medical Necessity Statement*: per medicine Coding Level of Care Code Acute Code for Chg Fwd Diagnoses End-stage renal disease needing dialysis N18.6; Z99.2
[2023-01-18 11:13] LABS: Reflex Lactate Order REFLEX LACTIC ORDERD
[2023-01-18 11:17] LABS: Glucose Point of Care 96 mg/dL (70-110)
[2023-01-18 11:20] LABS: ABG PCO2 30.1 mmHg (35-45); Blood Gas Operator Identificat JB; Blood Gas Sample Type Arterial; PO2 ABG 76.7 mmHg (80.0-100.0)
[2023-01-18] MEDS: piperacillin-tazobactam 3.375 GM in sodium chloride 0.9% (plus) 50 ML IV ×2 (11:31→22:51)
[2023-01-18 12:45] LABS: Lactic Acid level (Lactate) 3.1 mmol/L (0.5-2.2)
[2023-01-18 12:49] LABS: Blood Urea Nitrogen 50 mg/dL (8-23); Calcium 7.8 mg/dL (8.5-10.5); Carbon Dioxide 23 mmol/L (22-29); Chloride 95 mmol/L (98-107); Glomerular Filtration Rate 14.4 mL/min (90-130); Glucose 91 mg/dL (65-115); Osmolality Calculated 285 mOsm/kg (285-295); Sodium 131 mmol/L (136-145)
[2023-01-18 12:52] LABS: Anion Gap 18.5 (5-19); Potassium 5.5 mmol/L (3.5-5.1)
--- NOTE | 2023-01-18 13:21 | US_ITS ---
WS: [id number] RIGHT UPPER QUADRANT ULTRASOUND HISTORY: ruq pain COMPARISON: 11/15/2022 Liver: 19.5 cm in length. Mild hepatomegaly and hepatic steatosis. Normal size liver with no bile lars t dilatation. Portal Vein: Normal hepatopetal flow with monophasic waveform. Gallbladder: Moderately small amount of pericholecystic edema. No significant wall thickening. The ex tent of sludge layering has improved since 11/15/2022. Distended gallbladder with layering sludge. Ther e is also layering cholelithiasis within the gallbladder. CBD: 0.2 cm Pancreas: Moderate diffuse atrophy. Right kidney: 10.3 cm in length. Normal size and echogenicity. No hydronephrosis or mass. Aorta and IVC: Unremarkable abdominal aorta and IVC. Small amount of ascites RIGHT upper quadrant. Small RIGHT pleural effusion. US/US gall bladder [id number] IMPRESSION: 1. Layering sludge and small stones in the gallbladder. Gallbladder is mildly hydropic with a small amount of pericholecystic fluid. The extent of sludge has decreased since 11/15/2022. 2. No bile duct dilatation. 3. Mild hepatomegaly and hepatic steatosis.
--- NOTE | 2023-01-18 14:33 | P.PN_ITS ---
Subjective Subjective: patient was seen this morning, she is much more alert and awake, she follow commands, reports RUQ, off pressors, patient daughter at bedside tells me that she has had issues with her gallbladder and there were plans on possible surgery, but she was deemed a high risk with her cardiac condition and dialysis so family elected for medical management Vitals/I&O/Wt Last Vital Signs Temp 98.8 F 01/18/23 07:30 Pulse 72 01/18/23 14:00 Resp 7 L 01/18/23 14:00 BP 115/64 01/18/23 14:00 Pulse Ox 95 01/18/23 14:00 O2 Del Method Room Air 01/18/23 14:00 01/17/23 01/18/23 01/18/23 22:59 06:59 14:59 Intake Total 987.706 / 475.597 4918.008 / 2379.714 248.992 / 248.992 Output Total 3307 / 3307 Balance -2319.294 / -2319.294 1392.008 / -927.286 248.992 / 248.992 Weight last 48 hrs Weight 40.959 kg Weight 41.8 kg Weight 42.638 kg Weight 45.359 kg Physical Exam Urinary Catheter Management: Dickson: Cath Placed During This Visit: yes Reason for Continuing Indwelling Catheter: Accurate Measurement of Urinary Output in Critically Ill Patients Urinary Catheter Date of Insertion: 01/17/23 Urinary Catheter Time of Insertion: 22:15 Data 01/18/23 01:00 01/18/23 12:21 Micro: Microbiology 01/17/23 14:20 Blood Culture - Preliminary Blood NEGATIVE TO DATE 01/17/23 14:20 Blood Culture - Preliminary Blood NEGATIVE TO DATE A&P Assessment and plan (1) DKA (diabetic ketoacidosis): Qualifiers: Diabetes mellitus type: type 2 Diabetes mellitus complication detail: without coma Qualified Code(s): E11.10 - Type 2 diabetes mellitus with ketoacid osis without coma (2) High anion gap metabolic acidosis: (3) Lactic acidosis: (4) Acute encephalopathy: (5) Hyperkalemia: (6) End-stage renal disease needing dialysis: (7) Missed dialysis: (8) S/P CABG (coronary artery bypass graft): (9) Uremia: (10) CKD (chronic kidney disease): Qualifiers: Chronic kidney disease stage: unspecified stage Qualified Code(s): N18.9 - Chronic kidney disease, unspecified (11) Uncontrolled diabetes mellitus: (12) Acute renal failure superimposed on chronic kidney disease: Qualifiers: Acute renal failure type: unspecified Chronic kidney disease stage: unspecified stage Qualified Code(s): N17.9 - Acute kidney failure, unspecified; N18.9 - Chronic kidney disease, unspecified (13) Sepsis: (14) Uremia: (15) Acute hyperkalemia: (16) DKA (diabetic ketoacidosis): (17) Hypothermia: (18) Septic shock: (19) NSVT (nonsustained ventricular tachycardia): (20) Non-ST elevation IA (NSTEMI): (21) Acute respiratory failure with hypoxia and hypercapnia: (22) Acute on chronic diastolic CHF (congestive heart failure): (23) Protein calorie malnutrition: (24) Physical deconditioning: (25) NSTEMI (non-ST elevated myocardial infarction): (26) End-stage renal disease needing dialysis: Plan Diabetic ketoacidosis -DKA protocol -had hypoglycemia, hypoglycemia event overnight placed on d10 -AG in 20, and BS in the 100's -D5 1/2NS at 125cc/hr -Monitor BMP every 4 hours -Replace potassium if less than 4.5 -Once anion gap is 12, will turn off drip -Monitor blood sugars closely every hour Lactic acidosis -Possibly combination of DKA, dehydration, UTI, gallbladder disease -septic shock -Chest x-ray cannot see left lung base, possible pneumonia? -We will do CT chest abdomen pelvis without contrast -Although she is not requiring any oxygen - sputum culture, blood cultures -Start prophylactic vancomycin, Zosyn RUQ -has history of gallbladder disease -will order ct abdomen and pelvis and RUQ us UTI -zosyn NSTEMI -type 2 nstemi -likely supply demand ischemia from sepsis Septic shock -resolved -secondary to uti, gallbladder disease, possible pneumonia Possible pneumonia -antibiotics as above Hyperkalemia -potassium is 6.0 this morning -is on insulin drip -Will be dialyzed Sepsis -as above MYNOR on CKD -Missed dialysis, will be dialyzed today Serial EKGs serial troponins telemetry monitoring Acute encephalopathy, resolved , likely multifactorial from DKA, lactic acidosis, dehydration, uremia, possible infection such as pneumonia, uti, gallbladder disease Elevated ammonia levels monitor, will consider lactulose Pseudohyponatremia, from hyperglycemia Transaminitis with elevated alk phos CT abdomen Hypothermia, resolved, secondary to DKA, lactic acidosis, hyperkalemia Full code Heparin for DVT prophylaxis Attestations Medical Necessity Statement*: patient requires hospitalization for hypothermia, dka, lactic acidosis, uti, nstemi, septic shock, ruq, nstemi, Coding Level of Care Code Acute Code for Chg Fwd Diagnoses DKA (diabetic ketoacidosis) E11.10 Diabetes mellitus type: type 2 Diabetes mellitus complication detail: without coma High anion gap metabolic acidosis E87.29 Lactic acidosis E87.20 Acute encephalopathy G93.40 Hyperkalemia E87.5 End-stage renal disease needing dialysis N18.6; Z99.2 Missed dialysis S/P CABG (coronary artery bypass graft) Z95.1 Uremia N19 CKD (chronic kidney disease) N18.9 Chronic kidney disease stage: unspecified stage Uncontrolled diabetes mellitus E11.65 Acute renal failure superimposed on chronic kidney disease N17.9; N18.9 Acute renal failure type: unspecified Chronic kidney disease stage: unspecified stage Sepsis A41.9 Acute hyperkalemia E87.5 Hypothermia T68.XXXA Septic shock A41.9; R65.21 NSVT (nonsustained ventricular tachycardia) I47.29 Non-ST elevation IA (NSTEMI) I21.4 Acute respiratory failure with hypoxia and hypercapnia J96.01; J96.02 Acute on chronic diastolic CHF (congestive heart failure) I50.33 Protein calorie malnutrition E46 Physical deconditioning R53.81
[2023-01-18 15:59] LABS: Glucose Point of Care 244 mg/dL (70-110)
--- NOTE | 2023-01-18 16:52 | CT_ITS ---
WS: [id number] CT CHEST, ABDOMEN, AND PELVIS TECHNIQUE: Noncontrast CT of the chest, abdomen, and pelvis with coronal and sagittal reformatted david ges. CLINICAL INFORMATION: sepsis, ams COMPARISON: CTA to 11/15/22 DLP: 371.[address] scans at [facility] use at least one of these dose optimization techniques: automated e xposure control; mA and/or kV adjustment per patient size (includes targeted exams where dose is matc hed to clinical indication); or iterative reconstruction. CT CHEST: Cardiomegaly. Prior sternotomy. CABG. Ectatic ascending thoracic aorta measuring 3.6 cm unchanged. Bi lateral loculated pleural effusions with compressive atelectasis LEFT greater than RIGHT. Loculated p leural effusions have slightly improved compared to November 15, 2022. Lung apices are well aerated. No new pulmonary infiltrates compared to previous. RIGHT central venous catheter. LEFT ventricular en largement. Diffuse body wall anasarca. Chronic compression superior endplate T12 unchanged. CT ABDOMEN AND PELVIS: Normal noncontrast liver. Vicarious excretion of contrast in the gallbladder. Splenic artery calcific ation. Normal spleen. Diffuse body wall anasarca. Fatty atrophy of the pancreas. Normal caliber abdom inal aorta. Diffuse body wall anasarca. Vascular calcification. Dickson catheter. Calcified fibroid jonathan gurmeet. No hydronephrosis in either kidney. Stable LEFT renal cyst. Dense vascular calcification. Enlarg ed RIGHT hepatic lobe. Rectal constipation. No evidence of high-grade small or large bowel obstruction. Disc space narrowing worse L4-L5 with central disc protrusion. Grade 1 anterolisthesis L5 on S1 is stable. Osteopenia. LE FT sacral insufficiency fractures with sclerosis appear stable compared to November 15, 2022. Chronic pubic rami fractures and anterior LEFT acetabular fracture as previously described. CT/[place] [id number] IMPRESSION: 1. Marked cardiomegaly with enlarged LEFT ventricle similar to previous. 2. Loculated bilateral pleural effusions slightly improved compared to previou s. Associated compressive atelectasis. 3. Hepatomegaly with enlargement RIGHT hepatic lobe. 4. Hydropic gallbladder unchanged appearance since November 15, 2022. 5. Calcified fibroid uterus. 6. Diffuse body wall anasarca. 7. Dickson catheter. 8. No other new findings compared to previous.
[2023-01-18 17:03] LABS: Glucose Point of Care 209 mg/dL (70-110)
[2023-01-18] MEDS: heparin, porcine 1,000 unit/mL INJ 10 mL HE ×2 (17:04→19:23)
[2023-01-18 18:15] LABS: Glucose Point of Care 122 mg/dL (70-110)
[2023-01-18 19:05] LABS: Anion Gap 17.2 (5-19); Blood Urea Nitrogen 29 mg/dL (8-23); Calcium 7.7 mg/dL (8.5-10.5); Carbon Dioxide 24 mmol/L (22-29); Chloride 96 mmol/L (98-107); Glomerular Filtration Rate 26.2 mL/min (90-130); Glucose 155 mg/dL (65-115); Osmolality Calculated 287 mOsm/kg (285-295); Sodium 134 mmol/L (136-145)
[2023-01-18 19:19] LABS: Glucose Point of Care 137 mg/dL (70-110)
[2023-01-18 19:38] LABS: Potassium 3.2 mmol/L (3.5-5.1)
[2023-01-18 20:42] LABS: Glucose Point of Care 99 mg/dL (70-110)
[2023-01-18 21:30] LABS: Blood Urea Nitrogen 20 mg/dL (8-23); Calcium 7.3 mg/dL (8.5-10.5); Carbon Dioxide 24 mmol/L (22-29); Chloride 96 mmol/L (98-107); Glucose 221 mg/dL (65-115); Osmolality Calculated 283 mOsm/kg (285-295); Sodium 132 mmol/L (136-145)
[2023-01-18 21:48] LABS: Glucose Point of Care 111 mg/dL (70-110)
[2023-01-18] MEDS: vancomycin 750 MG in sodium chloride 0.9% 250 ML 250 MG IV (22:51)
[2023-01-18 23:10] LABS: Glucose Point of Care 149 mg/dL (70-110)
--- NOTE | 2023-01-18 23:51 | PC.NURSE ---
During hourly rounds, patient became agitated, demanding to go home. She was disoriented and uncooperative at this time, not allowing nursing staff to check her blood sugar. Patient's daughter was called and she stated that patient takes 1 mg of Ativan PO TID at home. Dr. Demarco was notified and a one time dose of Ativan was ordered and administered per order. Phone was given to patient so she could speak with her daughter. Safety precautions were followed.
[2023-01-18] MEDS: LORazepam 2 mg/mL INJ 1 mL 0.5 MG IVP (23:57)
[2023-01-19] VITALS (82 sets, daily range): BP systolic 113–151; BP diastolic 66–82; PULSE 63–76; RESP 3–20; TEMP 35.6–36.6; O2SAT 88–100; BMI 16.8
[2023-01-19 00:21] LABS: Glucose Point of Care 182 mg/dL (70-110)
[2023-01-19 01:38] LABS: Glucose Point of Care 182 mg/dL (70-110)
[2023-01-19] MEDS: sodium chloride 0.9% 1,000 ML 50 ML IV (02:19)
[2023-01-19] MEDS: dextrose 10% 1,000 ML 75 ML IV ×2 (02:19→16:57)
[2023-01-19 02:24] LABS: Basophils % 0.3 %; Eosinophils % 0.3 %; Hemoglobin 10.1 g/dL (11.5-15.3); Lymphocytes # 1.4 10^3/uL (0.8-4.8); Lymphocytes % 17.8 %; Mean Corpuscular HGB Conc 32.6 g/dL (30.0-36.0); Mean Corpuscular Hemoglobin 30.5 pg (28.0-34.0); Mean Corpuscular Volume 93.7 fl (81-99); Mean Platelet Volume 10.1 fL (7.4-10.4); Monocytes # 0.4 10^3/uL (0.2-0.9); Monocytes % 5.4 %; Neutrophils # 6.05 10^3/uL (1.8-7.7); Neutrophils % 75.9 %; Nucleated Red Blood Cells % 0 %; Platelet Count 257 10^3/cmm (130-400); Red Blood Count 3.31 10^6/uL (4.1-5.3); Red Cell Distribution Width 14.4 % (12.1-15.1)
[2023-01-19 02:42] LABS: C Reactive Protein 6.6 mg/L (0.0-4.9); Magnesium 1.8 mg/dL (1.7-2.3); Phosphorus 3.3 mg/dL (2.5-4.5)
[2023-01-19 02:43] LABS: Glucose Point of Care 163 mg/dL (70-110)
[2023-01-19 02:47] LABS: Lactate (Lactic Acid level) 4.5 mmol/L (0.5-2.2)
[2023-01-19 02:49] LABS: Ammonia 46 umol/L (11-51)
[2023-01-19 02:52] LABS: Procalcitonin 2.87 ng/mL (0-0.5)
--- NOTE | 2023-01-19 02:58 | PC.NURSE ---
Insulin Drip BG level below target range at 1900, 2000, and 2100. Dr. Demarco notified and insulin drip was paused. Insulin drip restarted at 2300 at 1.2 ml/hr. Dr. Demarco present on floor and ordered D10 to be started at 75 mL/hr and NS at 50 mL/hr. Insulin drip ordered to run at 0.5 mL/hr.
[2023-01-19 03:05] LABS: Blood Urea Nitrogen 23 mg/dL (8-23); Calcium 7.3 mg/dL (8.5-10.5); Carbon Dioxide 18 mmol/L (22-29); Chloride 96 mmol/L (98-107); Creatine Phosphokinase 27 U/L (26-192); Glomerular Filtration Rate 24.7 mL/min (90-130); Glucose 140 mg/dL (65-115); Osmolality Calculated 278 mOsm/kg (285-295); Sodium 131 mmol/L (136-145)
[2023-01-19 03:10] LABS: Anion Gap 23.4 (5-19); Potassium 6.4 mmol/L (3.5-5.1)
[2023-01-19 03:18] LABS: NT Pro B Type Natriuretic Pept > 70000 pg/mL (0-125)
[2023-01-19 03:50] LABS: Glucose Point of Care 149 mg/dL (70-110)
[2023-01-19 04:28] LABS: ABG PH Result 7.39 (7.35-7.45); Arterial Blood Gas Hematocrit 31.5 % (37-47); Base Excess ABG -2.3 mmol/L (-2.0-2.0); Blood Gas Allen Test Pos; HCO3 ABG 22.4 mmol/L (22-26)
[2023-01-19 04:29] LABS: Blood Gas Sample Site Brachial, right; Oxygen Device ROOM AIR
[2023-01-19 04:54] LABS: Glucose Point of Care 173 mg/dL (70-110)
[2023-01-19] MEDS: clopidogrel 75 mg Tablet PO (05:33)
[2023-01-19 05:47] LABS: Glucose Point of Care 155 mg/dL (70-110)
[2023-01-19 06:58] LABS: ABG PCO2 37.3 mmHg (35-45); Blood Gas Operator Identificat JB; Blood Gas Sample Type Arterial; PO2 ABG 59.3 mmHg (80.0-100.0)
[2023-01-19 07:02] LABS: Glucose Point of Care 136 mg/dL (70-110)
--- NOTE | 2023-01-19 07:13 | PC.NURSE ---
Dr. Johnson called to check on patient status overnight. Orders given for 10 units insulin IVP once with amp of D50, and 1 g calcium gluconate.
[2023-01-19 07:56] LABS: Glucose Point of Care 140 mg/dL (70-110)
--- NOTE | 2023-01-19 08:10 | USCV_ITS ---
Cony Temple Age: 67 Gender: F : 1955 Exam Date: 01/19/2023 09:08 Ordering Phys: Sunday Johnson MD Technologist: STEPHANIE Exam Location: [facility] [place] Indication: sob BP: / HR: 61 Rhythm: Sinus Technical Quality: Adequate MEASUREMENTS (Male / Female) Normal Values 2D ECHO LV Diastolic Diameter PLAX 5.5 cm 4.2 - 5.9 / 3.9 - 5.3 cm LV Systolic Diameter PLAX 4.8 cm IVS Diastolic Thickness 0.8 cm 0.6 - 1.0 / 0.6 - 0.9 cm IVS Systolic Thickness 1.0 cm LVPW Diastolic Thickness 0.6 cm 0.6 - 1.0 / 0.6 - 0.9 cm LVPW Systolic Thickness 0.9 cm LVOT Diameter 1.8 cm LV Ejection Fraction 2D Teich 26.5 % LV Ejection Fraction MOD 2C 16.5 % LV Ejection Fraction 2C AL 15.4 % LA Diameter 4.1 cm IVC Diameter 1.6 cm M-MODE Aortic Annulus Diameter 2.9 cm LA Ao Ratio MM 1.6 MV E Point Septal Separation 1.3 cm DOPPLER AV Peak Velocity 68.0 cm/s LVOT Peak Velocity 54.0 cm/s AV Area Cont Eq vti 1.8 cm squared AV Area Cont Eq pk 1.9 cm squared MV Area PHT 4.0 cm squared Mitral E to A Ratio 1.7 MV E' Velocity 45.5 cm/s Mitral E to MV E' Ratio 21.9 Mitral E to LV E' Lateral Ratio 24.3 Mitral E to LV E' Septal Ratio 20.3 TR Peak Velocity 257.8 cm/s TR Peak Gradient 26.6 mmHg TV Peak E Velocity 49.0 cm/s Right Atrial Pressure 9.0 mmHg Pulmonary Artery Systolic Pressu 35.6 mmHg PV Peak Velocity 61.0 cm/s FINDINGS Left Ventricle Left ventricle is mildly dilated. LV systolic function is severely reduced with EF of 20 to 25%. Severe global hypokinesis seen. Right Ventricle Mildly hypokinetic. Right Atrium Normal in size Left Atrium Dilated Mitral Valve Structurally normal mitral valve. Mild to moderate mitral regurgitation. Aortic Valve Aortic valve is thickened. Tricuspid Valve Mild tricuspid regurgitation. Insufficient TR jet to calculate RVSP Pulmonic Valve Not well-visualized. Mild pulmonic regurgitation. Pericardium Normal. Pleural effusion is noted. Aorta Normal in size IVC Appears to be normal CONCLUSIONS Left ventricle is mildly dilated LV systolic function is severely reduced with EF of 20-25%. Left atrial dilation Mild to moderate mitral regurgitation Compared to prior echocardiogram from 11/2022, no significant changes are seen Dean Gilmore MD (Electronically Signed) Final Date: 19 January 2023 13:12 S
[2023-01-19] MEDS: liothyronine 5 mcg Tablet 10 MCG PO (08:18)
[2023-01-19] MEDS: fenofibrate 145 mg Tablet PO (08:19)
[2023-01-19] MEDS: calcium gluconate 0.9% NaCL 1 GM/50 ML PREMIX IV (08:19)
[2023-01-19] MEDS: aspirin 325 mg Tablet PO (08:19)
[2023-01-19] MEDS: amiodarone 200 mg Tablet PO (08:19)
[2023-01-19] MEDS: levothyroxine 50 mcg Tablet PO (08:19)
[2023-01-19] MEDS: insulin regular-human 10 UNIT in SYRINGE 1 EACH IVP (08:22)
[2023-01-19] MEDS: heparin 5,000 unit/mL INJ 1 mL 5000 UNIT SUBCUT ×2 (08:22→20:40)
[2023-01-19 09:16] LABS: Glucose Point of Care 175 mg/dL (70-110)
[2023-01-19 09:30] LABS: Blood Urea Nitrogen 24 mg/dL (8-23); Calcium 7.7 mg/dL (8.5-10.5); Carbon Dioxide 19 mmol/L (22-29); Chloride 95 mmol/L (98-107); Free T4 Free Thyroxine 0.67 ng/dL (0.82-1.77); Glomerular Filtration Rate 23.4 mL/min (90-130); Glucose 231 mg/dL (65-115); Osmolality Calculated 281 mOsm/kg (285-295); Sodium 130 mmol/L (136-145); Thyroid Stimulating Hormone 9.98 uIU/mL (0.27-4.20)
[2023-01-19 10:06] LABS: Glucose Point of Care 152 mg/dL (70-110)
[2023-01-19] MEDS: piperacillin-tazobactam 3.375 GM in sodium chloride 0.9% (plus) 50 ML IV ×2 (10:56→23:28)
[2023-01-19 11:05] LABS: Glucose Point of Care 115 mg/dL (70-110)
[2023-01-19 12:32] LABS: Glucose Point of Care 79 mg/dL (70-110)
--- NOTE | 2023-01-19 13:09 | P.PN_ITS ---
Subjective Subjective: no new compliaints Medications: Reviewed: Yes Vitals/I&O/Wt Last Vital Signs Temp 97.9 F 01/19/23 00:00 Pulse 69 01/19/23 12:30 Resp 17 01/19/23 12:30 BP 122/70 01/19/23 12:30 Pulse Ox 91 01/19/23 12:30 O2 Del Method Room Air 01/19/23 06:00 01/18/23 01/19/23 01/19/23 22:59 06:59 14:59 Intake Total 1567.030 / 4177.787 2796 / 3116.022 518.433 / 518.433 Output Total 3068 / 3068 0 / 3068 Balance -1500.970 / -9904.387 0924 / 48.022 518.433 / 518.433 Weight last 48 hrs Weight 41.73 kg Weight 41.6 kg Weight 40.959 kg Weight 41.8 kg Weight 42.638 kg Weight 45.359 kg Physical Exam Urinary Catheter Management: Dickson: Cath Placed During This Visit: yes Reason for Continuing Indwelling Catheter: Accurate Measurement of Urinary Output in Critically Ill Patients Urinary Catheter Date of Insertion: 01/17/23 Urinary Catheter Time of Insertion: 22:15 Data 01/19/23 02:17 01/19/23 08:36 Micro: Microbiology 01/17/23 23:08 Urine Culture - Preliminary Urine Catheterized 01/17/23 14:20 Blood Culture - Preliminary Blood NEGATIVE TO DATE 01/17/23 14:20 Blood Culture - Preliminary Blood NEGATIVE TO DATE A&P Assessment and plan (1) End-stage renal disease needing dialysis: Plan 1. End-stage renal disease: Missed dialysis, patient now with hyperkalemia as well as volume overload. Hemodialysis yesterday and again today 2. Hyperkalemia: HD as above, should improve with insulin drip also, low potass ium diet 3. High anion gap metabolic acidosis: Due to DKA, 4. History of hypertension: Blood pressure borderline low, monitor 5. Hyponatremia: Sodium 127, pseudohyponatremia from high glucose Patient evaluated using audiovisual cart. Time spent 45 minutes Attestations Medical Necessity Statement*: per medicine Coding Level of Care Code Acute Code for Chg Fwd Diagnoses End-stage renal disease needing dialysis N18.6; Z99.2
[2023-01-19 13:25] LABS: Glucose Point of Care 87 mg/dL (70-110)
[2023-01-19 13:42] LABS: Blood Urea Nitrogen 24 mg/dL (8-23); Carbon Dioxide 21 mmol/L (22-29); Chloride 94 mmol/L (98-107); Glomerular Filtration Rate 22.1 mL/min (90-130); Glucose 85 mg/dL (65-115); Osmolality Calculated 273 mOsm/kg (285-295); Sodium 130 mmol/L (136-145)
[2023-01-19 13:43] LABS: Lactate (Lactic Acid level) 2.9 mmol/L (0.5-2.2)
[2023-01-19 14:27] LABS: Glucose Point of Care 84 mg/dL (70-110)
--- NOTE | 2023-01-19 15:03 | P.PN_ITS ---
Subjective Subjective: - Patient was seen this morning, she is alert to person, to place, not time, she is a bit more confused, she has not really wanted to eat anything -She did have low blood sugars overnight requiring D10 -Still on insulin drip -Continues to have hyperkalemia -Gallbladder is distended, worried about infectious source, as patient's lactic acid remain elevated, -I had extensive discussion with patient's daughter, patient's daughter tells me that she did not want to have surgery to her gallbladder, with her heart function, and her dialysis she was told that she would not likely make it out of surgery -She tells me that for some time her mom has given up, she at times does not want to do dialysis, she remains in bed, -I advised daughter she still in DKA, still has acidosis, still has hyperkale kati, she continues to have lactic acidosis and concern is from the gallbladder, I spoke to surgery, we would only recommend a cholecystostomy tube if there was plans on surgery in the near future -I advised her that the patch of cholecystostomy tube it would allow for infection control, however it can only be kept in for a maximum of 6 weeks, but she would have to have surgery at some point it is only a temporary intervention -But she reiterated to me that her mom would not want to have surgery and she expressly said this -I advised her that its good to be difficult to manage her sepsis and her lactic acidosis if her condition worsens with her gallbladder, she might succumb to it -I did also discuss hospice as an option -She tells me that she does not want her mom to suffer, and that if her mom wants to go to hospice, got up to her mom that she would fully support it Vitals/I&O/Wt Last Vital Signs Temp 97.9 F 01/19/23 00:00 Pulse 69 01/19/23 14:00 Resp 15 01/19/23 14:00 BP 128/76 01/19/23 14:00 Pulse Ox 91 01/19/23 14:00 O2 Del Method Room Air 01/19/23 06:00 01/19/23 01/19/23 01/19/23 06:59 14:59 22:59 Intake Total 1300 / 3116.022 518.433 / 518.433 Output Total 0 / 3068 Balance 1300 / 48.022 518.433 / 518.433 Weight last 48 hrs Weight 41.73 kg Weight 41.6 kg Weight 40.959 kg Weight 41.8 kg Weight 42.638 kg Physical Exam Const: COMMON NORMALS: no acute distress ORIENTATION/CONSCIOUSNESS: Yes awake, Yes oriented to person and Yes confused; not oriented to place and not oriented to time Resp: COMMON NORMALS: normal respiratory effort, No retractions, No use of accessory muscles and clear to auscultation bilaterally AUSCULTATION: clear to auscultation bilaterally Cardio: COMMON NORMALS: regular rate, regular rhythm, S1 normal heart sound present and S2 normal heart sound present RATE: regular rate RHYTHM: regular rhythm HEART SOUNDS: S1 normal heart sound present and S2 normal heart sound present GI: COMMON NORMALS: Normal to inspection, nondistended, normoactive bowel sounds present and non-tender Extremity: COMMON NORMALS: no pedal edema Neuro: SENSORIUM/ORIENTATION: Yes oriented to person, No oriented to place and No oriented to time Urinary Catheter Management: Dickson: Cath Placed During This Visit: yes Reason for Continuing Indwelling Catheter: Accurate Measurement of Urinary Output in Critically Ill Patients Urinary Catheter Date of Insertion: 01/17/23 Urinary Catheter Time of Insertion: 22:15 Data 01/19/23 02:17 01/19/23 12:50 Micro: Microbiology 01/17/23 23:08 Urine Culture - Preliminary Urine Catheterized 01/17/23 14:20 Blood Culture - Preliminary Blood NEGATIVE TO DATE 01/17/23 14:20 Blood Culture - Preliminary Blood NEGATIVE TO DATE A&P Assessment and plan (1) DKA (diabetic ketoacidosis): Qualifiers: Diabetes mellitus type: type 2 Diabetes mellitus complication detail: without coma Qualified Code(s): E11.10 - Type 2 diabetes mellitus with ketoacidosis without coma (2) High anion gap metabolic acidosis: (3) Lactic acidosis: (4) Acute encephalopathy: (5) Hyperkalemia: (6) End-stage renal disease needing dialysis: (7) Missed dialysis: (8) S/P CABG (coronary artery bypass graft): (9) Uremia: (10) CKD (chronic kidney disease): Qualifiers: Chronic kidney disease stage: unspecified stage Qualified Code(s): N18.9 - Chronic kidney disease, unspecified (11) Uncontrolled diabetes mellitus: (12) Acute renal failure superimposed on chronic kidney disease: Qualifiers: Acute renal failure type: unspecified Chronic kidney disease stage: unspecified stage Qualified Code(s): N17.9 - Acute kidney failure, unspecified; N18.9 - Chronic kidney disease, unspecified (13) Sepsis: (14) Uremia: (15) Acute hyperkalemia: (16) DKA (diabetic ketoacidosis): (17) Hypothermia: (18) Septic shock: (19) NSVT (nonsustained ventricular tachycardia): (20) Non-ST elevation ME (NSTEMI): (21) Acute respiratory failure with hypoxia and hypercapnia: (22) Acute on chronic diastolic CHF (congestive heart failure): (23) Protein calorie malnutrition: (24) Physical deconditioning: (25) NSTEMI (non-ST elevated myocardial infarction): (26) End-stage renal disease needing dialysis: (27) Gallbladder sludge: Plan Diabetic ketoacidosis -DKA protocol -had hypoglycemia, hypoglycemia event overnight placed on d10 -AG in 20, and BS in the 100's -Continue D10 -Monitor BMP every 4 hours -Replace potassium if less than 4.5 -Once anion gap is 12, will turn off drip -Monitor blood sugars closely every hour Lactic acidosis -Possibly combination of DKA, dehydration, UTI, concerns for gallbladder infection -septic shock -Chest x-ray cannot see left lung base, possible pneumonia? -Although she is not requiring any oxygen - sputum culture, blood cultures -Continue vancomycin, Zosyn RUQ -Right upper quadrant ultrasound shows 1.? Layering sludge and small stones in the gallbladder. Gallbladder is mildly hydropic with a small amount of pericholecystic fluid. The extent of sludge has decreased since 11/15/2022. 2.? No bile duct dilatation. 3.? Mild hepatomegaly and hepatic steatosis. -Definitive treatment would be to remove gallbladder -Cholecystostomy tube would be a temporary measure, it would allow for infection and source control, however she will need to have surgery at some point -According to patient's daughter she has declined surgery given her cardiac condition, and her dialysis condition, daughter says she has given up -We will continue Zosyn for now UTI -zosyn NSTEMI -type 2 nstemi -likely supply demand ischemia from sepsis Septic shock -resolved -secondary to uti, gallbladder disease, possible pneumonia Sepsis -Has persistent evidence of sepsis, with lactic acidosis, concerning for patient's gallbladder disease Possible pneumonia -antibiotics as above Hyperkalemia -potassium is 6.2, given insulin D50 calcium gluconate -is on insulin drip -Will be dialyzed MYNOR on CKD -Missed dialysis, will be dialyzed today Serial EKGs serial troponins telemetry monitoring Acute encephalopathy, persists, likely multifactorial from DKA, lactic acidosis, dehydration, uremia, possible infection such as pneumonia, uti, gallbladder dis ease Elevated ammonia levels monitor, will consider lactulose Pseudohyponatremia, from hyperglycemia Transaminitis with elevated alk phos CT abdomen Hypothermia, resolved, secondary to DKA, lactic acidosis, hyperkalemia Hypothyroidism, continue levothyroxine, added Cytomel Full code Heparin for DVT prophylaxis Attestations Medical Necessity Statement*: Requires hospitalization for gallbladder disease, on insulin drip for DKA, sepsis, lactic acidosis, NSTEMI, acute encephalopathy, hyperkalemia Coding Level of Care Code Critical Care >/= 30 minutes Critical care time (in minutes): 50 The high probability of a clinically significant, sudden or life threatening deterioration, as referenced in this documentation, required my full and direct attention, intervention and personal management. The critical care time shown is in addition to time spent performing any reported separately billable procedures and includes the following: [x] Data and vital sign review and interpretation [x ] Patient assessment, examination and intervention [x] Medication orders and management [x] Patient/Family updates as able [x] Care Coordination and Documentation. Diagnoses DKA (diabetic ketoacidosis) E11.10 Diabetes mellitus type: type 2 Diabetes mellitus complication detail: without coma High anion gap metabolic acidosis E87.29 Lactic acidosis E87.20 Acute encephalopathy G93.40 Hyperkalemia E87.5 End-stage renal disease needing dialysis N18.6; Z99.2 Missed dialysis S/P CABG (coronary artery bypass graft) Z95.1 Uremia N19 CKD (chronic kidney disease) N18.9 Chronic kidney disease stage: unspecified stage Uncontrolled diabetes mellitus E11.65 Acute renal failure superimposed on chronic kidney disease N17.9; N18.9 Acute renal failure type: unspecified Chronic kidney disease stage: unspecified stage Sepsis A41.9 Acute hyperkalemia E87.5 Hypothermia T68.XXXA Septic shock A41.9; R65.21 NSVT (nonsustained ventricular tachycardia) I47.29 Non-ST elevation ME (NSTEMI) I21.4 Acute respiratory failure with hypoxia and hypercapnia J96.01; J96.02 Acute on chronic diastolic CHF (congestive heart failure) I50.33 Protein calorie malnutrition E46 Physical deconditioning R53.81 Gallbladder sludge K82.8
[2023-01-19 15:07] LABS: Glucose Point of Care 85 mg/dL (70-110)
[2023-01-19 16:05] LABS: Glucose Point of Care 88 mg/dL (70-110)
--- NOTE | 2023-01-19 16:09 | PC.NURSE ---
Insulin drip on hold per physician's orders, continue IVF, see mar.
--- NOTE | 2023-01-19 16:17 | PM.CONSULT ---
Providers/Reason For Consult Consulting Physician/Specialty*: Dr. Nick Aponte, DO/General surgery Reason for Consult*: Distended gallbladder Attending Physician: Sunday Johnson MD Primary Care Provider: Zenon De Los Santos MD History of Present Illness History of Present Illness Cony Temple is a 67 year old female currently in the ICU with NSTEMI DKA and lactic acidosis. She has had a longstanding problem with right upper quadrant abdominal pain. She was going to get her gallbladder out in July at a different hospital but was deemed too sick for surgery at that time. Gallbladder shows layering sludge and mild hydrops. She is quite tender to palpation in the right upper quadrant. She is telling me that she is too scared to get her gallbladder out and does not want it done. She is oriented x3. Review of Systems General: Reports: 10 or more systems reviewed and unremarkable except in HPI and below Medications/Allergies Home Medications Medication Instructions Recorded Confirmed Last Taken Type pantoprazole 40 mg tablet,delayed 40 mg PO QAM 08/21/21 01/17/23 12/12/22 History release atorvastatin 40 mg tablet 40 mg PO QPM 03/06/22 01/17/23 12/12/22 History clopidogrel 75 mg tablet 75 mg PO QAM 03/06/22 01/17/23 12/12/22 History levothyroxine 75 mcg tablet 37.5 mcg PO DAILY 03/06/22 01/17/23 12/12/22 History vit B,C-folic ac 800 mcg-zinc 12.5 1 tab PO QAM 03/06/22 01/17/23 12/12/22 History mg-selen-D3 2,000 unit-vit E tablet (RenaPlex-D) hydrocodone 5 mg-acetaminophen 325 1 tab PO Q6H PRN pain 7 days #28 10/17/22 01/17/23 Unknown Rx mg tablet tabs metolazone 5 mg tablet 5 mg PO DAILY 30 minutes before 10/17/22 01/17/23 12/12/22 History torsemide sevelamer carbonate 800 mg tablet 1,600 mg PO TID 10/17/22 01/17/23 12/12/22 History torsemide 100 mg tablet 100 mg PO QAM 10/17/22 01/17/23 12/12/22 History venlafaxine 150 mg 150 mg PO QAM 10/17/22 01/17/23 12/12/22 History capsule,extended release 24 hr insulin glargine 100 unit/mL (3 5 unit SUBCUT BID 11/15/22 01/17/23 12/12/22 History mL) subcutaneous pen (Lantus Solostar U-100 Insulin) lorazepam 1 mg tablet 1 mg PO TID PRN Anxiety 11/15/22 01/17/23 Unknown History donepezil 5 mg tablet 10 mg PO BEDTIME #60 tabs 11/18/22 01/17/23 12/12/22 Rx amlodipine 10 mg tablet 10 mg PO BEDTIME 12/13/22 01/17/23 12/12/22 History aspirin 325 mg tablet 325 mg PO BID 12/13/22 01/17/23 12/12/22 History insulin lispro 100 unit/mL See Rx Instructions .Route .COMPLEX 12/13/22 01/17/23 Unknown History subcutaneous pen (Humalog KwikPen (U-100) Insulin) carvedilol 12.5 mg tablet 25 mg PO BID #120 tabs 12/16/22 01/17/23 12/12/22 Rx Allergies Allergy/AdvReac Type Severity Reaction Status Date / Time azithromycin Allergy Unknown Verified 01/17/23 13:50 erythromycin base Allergy Unknown Verified 01/17/23 13:50 mycins Allergy Unknown Uncoded 01/17/23 13:50 Current Medications Generic Name Dose Route Start Last Admin Trade Name Freq PRN Reason Stop Dose Admin Amiodarone HCl 200 mg 01/18/23 09:00 01/19/23 08:19 Amiodarone 200 Mg Tablet PO 200 mg DAILY ALYSSA Administration Aspirin 81 mg 01/19/23 09:00 01/19/23 08:34 Aspirin 81 Mg Ec Tablet PO Not Given DAILY ALYSSA Clopidogrel Bisulfate 75 mg 01/18/23 06:00 01/19/23 05:33 Clopidogrel 75 Mg Tablet PO 75 mg QAM ALYSSA Administration Fenofibrate 145 mg 01/18/23 09:00 01/19/23 08:19 Fenofibrate 145 Mg Tablet PO 145 mg DAILY ALYSSA Administration Heparin Sodium (Porcine) 5,000 unit 01/17/23 20:00 01/19/23 08:22 Heparin 5,000 Unit/Ml Inj 1 Ml SUBCUT 5,000 unit Q12H ALYSSA Administration Heparin Sodium (Porcine) 0 unit 01/17/23 16:54 01/18/23 19:23 Heparin, Porcine 1,000 Unit/Ml Inj 10 Ml HE 10,000 unit PRN PRN Administration DIALYSIS USE ONLY Insulin Human Regular 250 unit 252.5 mls @ 0 mls/hr 01/17/23 16:52 01/18/23 20:00 / Sodium Chloride IV 0.4 unit/hr .Q0M ALYSSA 0.4 mls/hr Titration Protocol Per Protocol Vancomycin HCl 750 mg/ Sodium 250 mls @ 250 mls/hr 01/17/23 22:00 01/18/23 23:51 Chloride IV Infused DIALYSIS ALYSSA Infusion Protocol As Directed Piperacillin Sod/Tazobactam 50 mls @ 12.5 mls/hr 01/17/23 22:45 01/19/23 14:56 Sod 3.375 gm/ Sodium Chloride IV Infused Q12H ALYSSA Infusion Protocol As Directed Dextrose 1,000 mls @ 75 mls/hr 01/18/23 23:30 01/19/23 02:19 D10w IV 75 mls/hr .[id number] ALYSSA Administration Levothyroxine Sodium 50 mcg 01/18/23 09:00 01/19/23 08:19 Levothyroxine 50 Mcg Tablet PO 50 mcg DAILY ALYSSA Administration Liothyronine Sodium 10 mcg 01/18/23 09:00 01/19/23 08:18 Liothyronine 5 Mcg Tablet PO 10 mcg DAILY ALYSSA Administration PFSH Acute PFSH: Medical History Acute on chronic diastolic CHF (congestive heart failure) Echocardiogram 11/30 shows EF of 20% with global LV hypokinesia, RVSP of 40, abnormal diastolic functions CAD in [place] artery Closed fracture of pubic ramus Depression End-stage renal disease needing dialysis ESRD on dialysis Fall Fracture acetabulum-closed Gastroparesis GERD (gastroesophageal reflux disease) Hyperlipidemia Hypertension Hypothyroidism Uncontrolled diabetes mellitus Surgical History S/P CABG (coronary artery bypass graft) Social History Smoking and tobacco status: never smoked Alcohol intake: never Vitals/I&O/Wt Last Vital Signs Temp 97.9 F 04/14/23 00:00 Pulse 67 01/19/23 16:00 Resp 16 01/19/23 16:00 BP 130/76 01/19/23 16:00 Pulse Ox 91 01/19/23 16:00 O2 Del Method Room Air 01/19/23 06:00 01/19/23 01/19/23 01/19/23 06:59 14:59 22:59 Intake Total 1300 / 3116.022 568.433 / 568.433 Output Total 0 / 3068 Balance 1300 / 48.022 568.433 / 568.433 Weight last 48 hrs Weight 92 lb Weight 91 lb 11.397 oz Weight 90 lb 4.8 oz Weight 92 lb 2.452 oz Weight 94 lb Physical Exam Narrative: General : Patient is well developed , no acute distress, oriented x3 Head : Normal cephalic, a-traumatic. Ears : Pinnae and external canal are normal. Hearing is normal. Eyes : PERRLA, Sclera and injection are normal. No conjunctival discharge. Nose : Mucous membranes are without erythema. Throat : buccal mucosa is normal, gums are without significant recession or hypertrophy. Lungs : Equal chest rise bilaterally, no use of accessory muscles, trachea is midline. Cor : Rate and rhythm are normal. Abdomen : Soft, ND, tender to palpation right upper quadrant, positive Nichole's, no guarding rebound or masses Extremities : No edema, no cyanosis or clubbing, dorsalis pedis pulses are present bilaterally, non-tender to palpation of calves. Upper extremities are normal bilaterally. Back : non-tender to palpation, no CVA tenderness. Neuro : CN II - XII intact, Upper and lower extremities have equal and full strength Urinary Catheter Management: Dickson: Cath Placed During This Visit: yes Reason for Continuing Indwelling Catheter: Accurate Measurement of Urinary Output in Critically Ill Patients Urinary Catheter Date of Insertion: 01/17/23 Urinary Catheter Time of Insertion: 22:15 Data 01/20/23 05:55 01/20/23 10:16 Micro: Microbiology 01/17/23 23:08 Urine Culture - Preliminary Urine Catheterized 01/17/23 14:20 Blood Culture - Preliminary Blood NEGATIVE TO DATE 01/17/23 14:20 Blood Culture - Preliminary Blood NEGATIVE TO DATE A&P Assessment and plan (1) Cholecystitis: Plan Cardiac patient who is a very high risk for surgery. She does have cholecystitis however. I would be willing to consider cholecystectomy if she was medically optimized and cleared by cardiology. However patient is verbally refusing surgery Medical management per hospitalist Coding Level of Care Code Acute Code for [facility] Fwd Diagnoses Cholecystitis K81.9
[2023-01-19 17:00] LABS: Glucose Point of Care 86 mg/dL (70-110)
[2023-01-19 19:54] LABS: Anion Gap 14.4 (5-19); Blood Urea Nitrogen 14 mg/dL (8-23); Calcium 7.7 mg/dL (8.5-10.5); Carbon Dioxide 25 mmol/L (22-29); Chloride 97 mmol/L (98-107); Glomerular Filtration Rate 40.6 mL/min (90-130); Glucose 167 mg/dL (65-115); Osmolality Calculated 280 mOsm/kg (285-295); Potassium 3.4 mmol/L (3.5-5.1); Sodium 133 mmol/L (136-145)
[2023-01-19 19:55] LABS: Lactate (Lactic Acid level) 1.4 mmol/L (0.5-2.2)
--- NOTE | 2023-01-19 20:18 | PC.NURSE ---
Reported current lab results to Dr. Demarco. Awaiting orders.
--- NOTE | 2023-01-19 20:32 | PC.NURSE ---
New orders received from Dr. Demarco: DC insulin drip and D10 drip, advance diet, give 5 units of lantus x1 dose now, start low dose sliding scale Humalog, check blood sugar ACHS.
[2023-01-19] MEDS: heparin, porcine 1,000 unit/mL INJ 10 mL HE (20:39)
[2023-01-19 20:51] LABS: Glucose Point of Care 172 mg/dL (70-110)
[2023-01-19] MEDS: insulin glargine 100 units/1 mL 5 UNIT SUBCUT (21:19)
[2023-01-19] MEDS: vancomycin 750 MG in sodium chloride 0.9% 250 ML 250 MG IV (21:19)
[2023-01-19] MEDS: insulin lispro 100 unit/1 mL SUBCUT (21:19)
[2023-01-19 21:54] LABS: Glucose Point of Care 180 mg/dL (70-110)
[2023-01-19 22:56] LABS: Glucose Point of Care 132 mg/dL (70-110)
[2023-01-20] VITALS (79 sets, daily range): BP systolic 132–160; BP diastolic 71–116; PULSE 77–104; RESP 12–35; TEMP 36.4; O2SAT 91–100
[2023-01-20 00:01] LABS: Glucose Point of Care 110 mg/dL (70-110)
[2023-01-20 01:56] LABS: Glucose Point of Care 245 mg/dL (70-110)
[2023-01-20 02:49] LABS: Blood Urea Nitrogen 14 mg/dL (8-23); Calcium 7.6 mg/dL (8.5-10.5); Carbon Dioxide 25 mmol/L (22-29); Chloride 93 mmol/L (98-107); Glomerular Filtration Rate 34.4 mL/min (90-130); Glucose 74 mg/dL (65-115); Osmolality Calculated 261 mOsm/kg (285-295); Sodium 126 mmol/L (136-145)
[2023-01-20 02:51] LABS: Anion Gap 13.6 (5-19)
[2023-01-20 02:52] LABS: Lactate (Lactic Acid level) 2.7 mmol/L (0.5-2.2); Potassium 5.6 mmol/L (3.5-5.1)
--- NOTE | 2023-01-20 03:27 | PC.NURSE ---
Lab results reported to Dr. Demarco. Awaiting orders.
[2023-01-20 03:53] LABS: Glucose Point of Care 78 mg/dL (70-110)
[2023-01-20 03:53] LABS: Glucose Point of Care 59 mg/dL (70-110)
[2023-01-20 04:28] LABS: Glucose Point of Care 84 mg/dL (70-110)
[2023-01-20] MEDS: clopidogrel 75 mg Tablet PO (05:40)
[2023-01-20 06:00] LABS: Basophils % 0.1 %; Eosinophils # 0.1 10^3/uL (0.0-0.8); Eosinophils % 0.8 %; Hematocrit 33.8 % (37.0-47.0); Hemoglobin 10.8 g/dL (11.5-15.3); Lymphocytes # 0.9 10^3/uL (0.8-4.8); Lymphocytes % 10.8 %; Mean Corpuscular Hemoglobin 30.3 pg (28.0-34.0); Mean Corpuscular Volume 94.7 fl (81-99); Mean Platelet Volume 10.2 fL (7.4-10.4); Monocytes # 0.5 10^3/uL (0.2-0.9); Monocytes % 5.8 %; Neutrophils # 6.47 10^3/uL (1.8-7.7); Neutrophils % 82.1 %; Nucleated Red Blood Cells % 0 %; Platelet Count 284 10^3/cmm (130-400); Red Blood Count 3.57 10^6/uL (4.1-5.3); Red Cell Distribution Width 14.3 % (12.1-15.1); White Blood Count 7.9 10^3/uL (4.0-10.0)
[2023-01-20 06:23] LABS: Lactate (Lactic Acid level) 3.5 mmol/L (0.5-2.2)
[2023-01-20 06:24] LABS: Vancomycin Random 24.7 ug/mL (20.0-40.0)
[2023-01-20 06:42] LABS: Blood Urea Nitrogen 14 mg/dL (8-23); C Reactive Protein 13.7 mg/L (0.0-4.9); Calcium 7.8 mg/dL (8.5-10.5); Carbon Dioxide 22 mmol/L (22-29); Chloride 92 mmol/L (98-107); Glucose 160 mg/dL (65-115); Magnesium 1.9 mg/dL (1.7-2.3); Osmolality Calculated 268 mOsm/kg (285-295); Phosphorus 3.5 mg/dL (2.5-4.5); Sodium 127 mmol/L (136-145)
[2023-01-20 06:43] LABS: Anion Gap 18.8 (5-19); Potassium 5.8 mmol/L (3.5-5.1)
[2023-01-20 06:44] LABS: Creatine Phosphokinase 37 U/L (26-192)
[2023-01-20 07:11] LABS: Ammonia 38 umol/L (11-51)
[2023-01-20 07:13] LABS: NT Pro B Type Natriuretic Pept > 70000 pg/mL (0-125); Procalcitonin 2.03 ng/mL (0-0.5)
[2023-01-20 07:26] LABS: Glucose Point of Care 128 mg/dL (70-110)
[2023-01-20] MEDS: heparin 5,000 unit/mL INJ 1 mL 5000 UNIT SUBCUT ×2 (08:22→19:52)
[2023-01-20] MEDS: aspirin 81 mg EC Tablet PO (08:22)
[2023-01-20] MEDS: liothyronine 5 mcg Tablet 10 MCG PO (08:22)
[2023-01-20] MEDS: levothyroxine 50 mcg Tablet PO (08:22)
[2023-01-20] MEDS: fenofibrate 145 mg Tablet PO (08:22)
[2023-01-20] MEDS: amiodarone 200 mg Tablet PO (08:22)
[2023-01-20] MEDS: insulin regular-human 10 UNIT in SYRINGE 1 EACH IVP (09:05)
--- NOTE | 2023-01-20 09:51 | PM.CONSULT ---
Providers/Reason For Consult Consulting Physician/Specialty*: Dean Gilmore MD/ Cardiology Reason for Consult*: Pre op optimization Requesting Physician: Dr Johnson Attending Physician: Sunday Johnson MD Primary Care Provider: Zenon De Los Santos MD History of Present Illness History of Present Illness Cony Temple is a 67 year old female with past medical history of hypertension, diabetes, CAD s/p CABG in 2020, ischemic cardiomyopathy presented to hospital with altered mental status and was found to be in DKA. She also has right upper quadrant abdominal discomfort and likely cholecystitis. Cardiology was consulted for preop management of cardiac medications and optimization. Patient denies chest pain. Echo shows severe LV dysfunction with EF of 20 to 25%. Denies shortness of breath. Patient herself is not sure about surgery and does not want to have it. Review of Systems Narrative: CONSTITUTIONAL: No fever chills weight loss or gain or night sweats. [] HEENT: Normocephalic, atraumatic.[] RESPIRATORY: denies shortness of breath CARDIOVASCULAR: No shortness of breath, chest pain, PND, orthopnea, lower extremity edema, presyncope or syncope. [] GI: Has right upper quadrant pain VETERINARY MEDICINE DOCTOR: No numbness, tingling, weakness or loss of function in any part of the body. [] MUSCULOSKELETAL: No knee or joint pain or rashes. [] Medications/Allergies Home Medications Medication Instructions Recorded Confirmed Last Taken Type pantoprazole 40 mg tablet,delayed 40 mg PO QAM 08/21/21 01/17/23 12/12/22 History release atorvastatin 40 mg tablet 40 mg PO QPM 03/06/22 01/17/23 12/12/22 History clopidogrel 75 mg tablet 75 mg PO QAM 03/06/22 01/17/23 12/12/22 History levothyroxine 75 mcg tablet 37.5 mcg PO DAILY 03/06/22 01/17/23 12/12/22 History vit B,C-folic ac 800 mcg-zinc 12.5 1 tab PO QAM 03/06/22 01/17/23 12/12/22 History mg-selen-D3 2,000 unit-vit E tablet (RenaPlex-D) hydrocodone 5 mg-acetaminophen 325 1 tab PO Q6H PRN pain 7 days #28 10/17/22 01/17/23 Unknown Rx mg tablet tabs metolazone 5 mg tablet 5 mg PO DAILY 30 minutes before 10/17/22 01/17/23 12/12/22 History torsemide sevelamer carbonate 800 mg tablet 1,600 mg PO TID 10/17/22 01/17/23 12/12/22 History torsemide 100 mg tablet 100 mg PO QAM 10/17/22 01/17/23 12/12/22 History venlafaxine 150 mg 150 mg PO QAM 10/17/22 01/17/23 12/12/22 History capsule,extended release 24 hr insulin glargine 100 unit/mL (3 5 unit SUBCUT BID 11/15/22 01/17/23 12/12/22 History mL) subcutaneous pen (Lantus Solostar U-100 Insulin) lorazepam 1 mg tablet 1 mg PO TID PRN Anxiety 11/15/22 01/17/23 Unknown History donepezil 5 mg tablet 10 mg PO BEDTIME #60 tabs 11/18/22 01/17/23 12/12/22 Rx amlodipine 10 mg tablet 10 mg PO BEDTIME 12/13/22 01/17/23 12/12/22 History aspirin 325 mg tablet 325 mg PO BID 12/13/22 01/17/23 12/12/22 History insulin lispro 100 unit/mL See Rx Instructions .Route .COMPLEX 12/13/22 01/17/23 Unknown History subcutaneous pen (Humalog KwikPen (U-100) Insulin) carvedilol 12.5 mg tablet 25 mg PO BID #120 tabs 12/16/22 01/17/23 12/12/22 Rx Allergies Allergy/AdvReac Type Severity Reaction Status Date / Time azithromycin Allergy Unknown Verified 01/17/23 13:50 erythromycin base Allergy Unknown Verified 01/17/23 13:50 mycins Allergy Unknown Uncoded 01/17/23 13:50 Current Medications Generic Name Dose Route Start Last Admin Trade Name Freq PRN Reason Stop Dose Admin Amiodarone HCl 200 mg 01/18/23 09:00 01/20/23 08:22 Amiodarone 200 Mg Tablet PO 200 mg DAILY ALYSSA Administration Aspirin 81 mg 01/19/23 09:00 01/20/23 08:22 Aspirin 81 Mg Ec Tablet PO 81 mg DAILY ALYSSA Administration Clopidogrel Bisulfate 75 mg 01/18/23 06:00 01/20/23 05:40 Clopidogrel 75 Mg Tablet PO 75 mg QAM ALYSSA Administration Fenofibrate 145 mg 01/18/23 09:00 01/20/23 08:22 Fenofibrate 145 Mg Tablet PO 145 mg DAILY ALYSSA Administration Heparin Sodium (Porcine) 5,000 unit 01/17/23 20:00 01/20/23 08:22 Heparin 5,000 Unit/Ml Inj 1 Ml SUBCUT 5,000 unit Q12H ALYSSA Administration Heparin Sodium (Porcine) 0 unit 01/17/23 16:54 01/19/23 20:39 Heparin, Porcine 1,000 Unit/Ml Inj 10 Ml HE 10,000 unit PRN PRN Administration DIALYSIS USE ONLY Vancomycin HCl 750 mg/ Sodium 250 mls @ 250 mls/hr 01/17/23 22:00 01/19/23 22:20 Chloride IV Infused DIALYSIS ALYSSA Infusion Protocol As Directed Piperacillin Sod/Tazobactam 50 mls @ 12.5 mls/hr 01/17/23 22:45 01/20/23 03:30 Sod 3.375 gm/ Sodium Chloride IV Infused Q12H ALYSSA Infusion Protocol As Directed Levothyroxine Sodium 50 mcg 01/18/23 09:00 01/20/23 08:22 Levothyroxine 50 Mcg Tablet PO 50 mcg DAILY ALYSSA Administration Liothyronine Sodium 10 mcg 01/18/23 09:00 01/20/23 08:22 Liothyronine 5 Mcg Tablet PO 10 mcg DAILY ALYSSA Administration Non-Formulary Medication 10 gram 01/20/23 09:00 01/20/23 08:23 Lokelma PO Not Given DAILY ALYSSA PFSH Acute PFSH: Medical History Acute on chronic diastolic CHF (congestive heart failure) Echocardiogram 11/30 shows EF of 20% with global LV hypokinesia, RVSP of 40, abnormal diastolic functions CAD in [place] artery Closed fracture of pubic ramus Depression End-stage renal disease needing dialysis ESRD on dialysis Fall Fracture acetabulum-closed Gastroparesis GERD (gastroesophageal reflux disease) Hyperlipidemia Hypertension Hypothyroidism Uncontrolled diabetes mellitus Surgical History S/P CABG (coronary artery bypass graft) Social History (Reviewed 04/17/23 @ 09:49 by Deana Martinez Smoking and tobacco status: never smoked Alcohol intake: never Vitals/I&O/Wt Last Vital Signs Temp 97.6 F 01/20/23 08:00 Pulse 84 01/20/23 09:30 Resp 23 H 01/20/23 09:30 BP 150/77 01/20/23 09:30 Pulse Ox 100 01/20/23 09:30 O2 Del Method Nasal Cannula 01/19/23 19:00 O2 Flow Rate 3 01/19/23 19:00 01/19/23 01/20/23 01/20/23 22:59 06:59 14:59 Intake Total 1920 / 2488.433 1150 / 3638.433 170 / 170 Output Total 2974 / 2974 2988 Balance -1054 / -029.836 5092 / 649.433 170 / 170 Weight last 48 hrs Weight 90 lb 3 oz Weight 91 lb 11.397 oz Weight 92 lb Weight 91 lb 11.397 oz Physical Exam Narrative: GENERAL: Patient is alert, awake and oriented x3. [] NECK: No jugular vein distension. [] HEENT: No cyanosis. No icterus. No pallor. [] HEART: Regular S1 and S2. No murmur, rub or gallop. [] LUNGS: Clear to auscultate bilaterally. [] ABDOMEN: Soft,Has abdominal tenderness CENTRAL NERVOUS SYSTEM: Grossly nonfocal. [] EXTREMITIES: Lower extremities with no edema Urinary Catheter Management: Dickson: Cath Placed During This Visit: yes Reason for Continuing Indwelling Catheter: Accurate Measurement of Urinary Output in Critically Ill Patients Urinary Catheter Date of Insertion: 01/17/23 Urinary Catheter Time of Insertion: 22:15 Data 01/22/23 05:04 01/22/23 07:13 Micro: Microbiology 01/17/23 23:08 Urine Culture - Preliminary Urine Catheterized A&P Assessment and plan (1) Cholecystitis: (2) S/P CABG (coronary artery bypass graft): (3) DKA (diabetic ketoacidosis): (4) Pre-operative clearance: Plan Patient is improving overall. Continue metoprolol at current dose. If blood pressure allows can be uptitrated. Continue Plavix At this time patient does not want to have surgery. She says she will decide on it later. Echo shows unchanged EF and severely reduced LV systolic function. Thank you for involving us with care of this patient. We will continue to follow. Please call with questions. Consult Attestations Medical Necessity Statement: Care expected to cross 2 midnights. Coding Level of Care Code Acute Code for Chg Fwd Diagnoses Cholecystitis K81.9 S/P CABG (coronary artery bypass graft) Z95.1 DKA (diabetic ketoacidosis) E11.10 Pre-operative clearance Z01.818
[2023-01-20 10:55] LABS: Glucose Point of Care 174 mg/dL (70-110)
[2023-01-20] MEDS: insulin lispro 100 unit/1 mL SUBCUT ×2 (11:01→17:52)
[2023-01-20] MEDS: piperacillin-tazobactam 3.375 GM in sodium chloride 0.9% (plus) 50 ML IV ×2 (11:01→22:01)
[2023-01-20 11:02] LABS: Anion Gap 18.8 (5-19); Blood Urea Nitrogen 17 mg/dL (8-23); Calcium 7.8 mg/dL (8.5-10.5); Carbon Dioxide 22 mmol/L (22-29); Chloride 92 mmol/L (98-107); Glomerular Filtration Rate 27.9 mL/min (90-130); Glucose 240 mg/dL (65-115); Osmolality Calculated 277 mOsm/kg (285-295); Potassium 3.8 mmol/L (3.5-5.1); Sodium 129 mmol/L (136-145)
--- NOTE | 2023-01-20 11:27 | P.PN_ITS ---
Subjective Subjective: K high again today Medications: Reviewed: Yes Vitals/I&O/Wt Last Vital Signs Temp 97.6 F 01/20/23 08:00 Pulse 82 01/20/23 11:00 Resp 22 H 01/20/23 11:00 BP 146/75 01/20/23 11:00 Pulse Ox 100 01/20/23 11:00 O2 Del Method Nasal Cannula 01/20/23 10:47 O2 Flow Rate 3 01/20/23 10:47 01/19/23 01/20/23 01/20/23 22:59 06:59 14:59 Intake Total 1920 / 2488.433 1150 / 3638.433 170.1 / 170.1 Output Total 2974 / 2974 2988 Balance -1054 / -302.924 5687 / 649.433 170.1 / 170.1 Weight last 48 hrs Weight 40.908 kg Weight 41.6 kg Weight 41.73 kg Weight 41.6 kg Physical Exam Narrative: awake , alert HEENT s1 s2 rrr per report clear smita per report no edema Urinary Catheter Management: Dickson: Cath Placed During This Visit: yes Reason for Continuing Indwelling Catheter: Accurate Measurement of Urinary Output in Critically Ill Patients Urinary Catheter Date of Insertion: 01/17/23 Urinary Catheter Time of Insertion: 22:15 Data 01/20/23 05:55 01/20/23 10:16 Micro: Microbiology 01/17/23 23:08 Urine Culture - Final Urine Catheterized A&P Assessment and plan (1) End-stage renal disease needing dialysis: Plan 1. End-stage renal disease: Missed dialysis, patient now with hyperkalemia as well as volume overload. Hemodialysis yesterday and again today 2. Hyperkalemia: HD as above, lokelma ordered 3. High anion gap metabolic acidosis: Due to DKA, 4. History of hypertension: Blood pressure borderline low, monitor 5. Hyponatremia: Na 129 Patient evaluated using audiovisual cart. Time spent 45 minutes Attestations Medical Necessity Statement*: per medicine Coding Level of Care Code Acute Code for Chg Fwd Diagnoses End-stage renal disease needing dialysis N18.6; Z99.2
--- NOTE | 2023-01-20 11:41 | PM.PN ---
Subjective Subjective: - I had extended a family meeting with patient and her daughter at bedside yesterday -I discussed all options available to her including -Continuing medical care, seeing if her gallbladder can cool down with antibiotic therapy -Versus placing a cholecystostomy tube, I can considering cholecystectomy in 4 to 6 weeks -Versus pursuing surgery -Versus hospice -After discussing all the risk and benefits of all options, all questions answered, patient voiced that she want to pursue surgery she will consider cholecystostomy tube if needed -Patient was seen this morning she is alert awake, following all commands she actually tells me she feels a lot better, no nausea, vomiting, lightheadedness continues to have right upper quadrant tenderness feeling bloated, feeling nauseous at times her appetite remains poor Vitals/I&O/Wt Last Vital Signs Temp 97.6 F 01/20/23 08:00 Pulse 82 01/20/23 11:00 Resp 22 H 01/20/23 11:00 BP 146/75 01/20/23 11:00 Pulse Ox 100 01/20/23 11:00 O2 Del Method Nasal Cannula 01/20/23 10:47 O2 Flow Rate 3 01/20/23 10:47 01/19/23 01/20/23 01/20/23 22:59 06:59 14:59 Intake Total 1920 / 2488.433 1150 / 3638.433 170.1 / 170.1 Output Total 2974 / 2974 2988 Balance -1054 / -381.619 5948 / 649.433 170.1 / 170.1 Weight last 48 hrs Weight 40.908 kg Weight 41.6 kg Weight 41.73 kg Weight 41.6 kg Physical Exam Const: COMMON NORMALS: no acute distress and patient oriented x3 Resp: COMMON NORMALS: normal respiratory effort, No retractions, No use of accessory muscles and clear to auscultation bilaterally AUSCULTATION: clear to auscultation bilaterally Cardio: COMMON NORMALS: regular rate, regular rhythm, S1 normal heart sound present and S2 normal heart sound present RATE: regular rate RHYTHM: regular rhythm HEART SOUNDS: S1 normal heart sound present and S2 normal heart sound present GI: COMMON NORMALS: Normal to inspection, nondistended, normoactive bowel sounds present OTHER: Right upper quadrant tenderness Extremity: COMMON NORMALS: no pedal edema Neuro: COMMON NORMALS: patient oriented x3 Psych: COMMON NORMALS: mental status grossly normal Urinary Catheter Management: Dickson: Cath Placed During This Visit: yes Reason for Continuing Indwelling Catheter: Accurate Measurement of Urinary Output in Critically Ill Patients Urinary Catheter Date of Insertion: 01/17/23 Urinary Catheter Time of Insertion: 22:15 Data 01/20/23 05:55 01/20/23 10:16 Micro: Microbiology 01/17/23 23:08 Urine Culture - Final Urine Catheterized A&P Assessment and plan (1) DKA (diabetic ketoacidosis): Qualifiers: Diabetes mellitus type: type 2 Diabetes mellitus complication detail: without coma Qualified Code(s): E11.10 - Type 2 diabetes mellitus with ketoacidosis without coma (2) High anion gap metabolic acidosis: (3) Lactic acidosis: (4) Acute encephalopathy: (5) Hyperkalemia: (6) End-stage renal disease needing dialysis: (7) Missed dialysis: (8) S/P CABG (coronary artery bypass graft): (9) Uremia: (10) CKD (chronic kidney disease): Qualifiers: Chronic kidney disease stage: unspecified stage Qualified Code(s): N18.9 - Chronic kidney disease, unspecified (11) Uncontrolled diabetes mellitus: (12) Acute renal failure superimposed on chronic kidney disease: Qualifiers: Acute renal failure type: unspecified Chronic kidney disease stage: unspecified stage Qualified Code(s): N17.9 - Acute kidney failure, unspecified; N18.9 - Chronic kidney disease, unspecified (13) Sepsis: (14) Uremia: (15) Acute hyperkalemia: (16) DKA (diabetic ketoacidosis): (17) Hypothermia: (18) Septic shock: (19) NSVT (nonsustained ventricular tachycardia): (20) Non-ST elevation AL (NSTEMI): (21) Acute respiratory failure with hypoxia and hypercapnia: (22) Acute on chronic diastolic CHF (congestive heart failure): (23) Protein calorie malnutrition: (24) Physical deconditioning: (25) NSTEMI (non-ST elevated myocardial infarction): (26) End-stage renal disease needing dialysis: (27) Gallbladder sludge: Plan Diabetic ketoacidosis -Patient remained hyperglycemic throughout the day yesterday, insulin drip has been stopped for over 24 hours, due to low blood sugars, this morning her anion gap remains 18, bicarb is 22 -Increased anion gap likely due to persistent lactic acidosis -Due to persistent hypoglycemia, normal bicarb, and then stop insulin drip transition to subcu insulin -Encourage p.o. intake, diabetic diet Lactic acidosis -Possibly combination of DKA, dehydration, UTI, concerns for gallbladder infection -Now persistent lactic acidosis, highly suspicious for gallbladder infection - sputum culture, blood cultures -Continue vancomycin, Zosyn RUQ -Right upper quadrant ultrasound shows 1.? Layering sludge and small stones in the gallbladder. Gallbladder is mildly hydropic with a small amount of pericholecystic fluid. The extent of sludge has decreased since 11/15/2022. 2.? No bile duct dilatation. 3.? Mild hepatomegaly and hepatic steatosis. -Continues to have right upper quadrant tenderness, pain, bloating, poor appetite, evidence of lactic acidosis as above, -Definitive treatment would be to remove gallbladder, if we could optimize her for surgery -Cholecystostomy tube would be a temporary measure, it would allow for infection and source control, however she will need to have surgery at some point -Patient is agreeable to surgical intervention -Agreeable to cholecystostomy tube placement if required before cholecystectomy and agreeable to cholecystectomy if she can be medically optimized here -We will continue Zosyn for now -General surgery consulted Ischemic cardiomyopathy -?Left ventricle is mildly dilated ?LV systolic function is severely reduced with EF of 20-25%. ?Left atrial dilation ?Mild to moderate mitral regurgitation ?Compared to prior echocardiogram from 11/2022, no significant ?changes are seen -No complaints of chest pain, shortness of breath, does not look fluid overloaded -I reviewed patient's prior medical records patient had a coronary artery bypass graft in August 2021 in [place], postoperatively she did not have any follow-up -She eventually followed up with chief engineer research in [facility], and March 21, 2022, she underwent cardiac catheterization and was found to have 5 out of 5 bypass patent, she was noted to have small first marginal 8, and posterior lateral branch had severe disease however given vessel size these are recommended for medical management -As per documentation Dr. Schmidt at [facility], initially recommended proceeding with surgical invention for her gallbladder back in July moderate risk, unfortunately she was found to have bilateral pleural effusions on her preop chest x-ray, mentioned requiring thoracocentesis, and actually had chest tubes placed which were eventually removed -During her previous hospitalization she was seen, and it was recommended for ICD placement however patient declined we will see if she can potentially have a chest vest fitted -Continue aspirin, Plavix, add beta-shanthi -Consult cardiology from cardiac optimization UTI -zosyn NSTEMI -type 2 nstemi -likely supply demand ischemia from sepsis Septic shock -resolved -secondary to uti, gallbladder disease, possible pneumonia Sepsis -Has persistent evidence of sepsis, with lactic acidosis, concerning for patient's gallbladder disease Possible pneumonia -antibiotics as above Hyperkalemia -We will give another amp of D50, with insulin this morning -Continue Lokelma -Will be dialyzed MYNOR on CKD -Monitor Serial EKGs serial troponins telemetry monitoring Acute encephalopathy, resolved, likely multifactorial from DKA, lactic acidosis, dehydration, uremia, possible infection such as pneumonia, uti, gallbladder disease Elevated ammonia levels monitor, will consider lactulose Hyponatremia likely due to poor oral intake, monitor Transaminitis with elevated alk phos Hypothermia, resolved, secondary to DKA, lactic acidosis, hyperkalemia Hypothyroidism, continue levothyroxine, added Cytomel Full code Heparin for DVT prophylaxis Spoke to general surgery Spoke to cardiology Attestations Medical Necessity Statement*: Patient requires hospitalization for persistent lactic acidosis, dehydration, hypoglycemia, UTI, gallbladder disease, pneumonia, hyperkalemia Diagnoses DKA (diabetic ketoacidosis) E11.10 Diabetes mellitus type: type 2 Diabetes mellitus complication detail: without coma High anion gap metabolic acidosis E87.29 Lactic acidosis E87.20 Acute encephalopathy G93.40 Hyperkalemia E87.5 End-stage renal disease needing dialysis N18.6; Z99.2 Missed dialysis S/P CABG (coronary artery bypass graft) Z95.1 Uremia N19 CKD (chronic kidney disease) N18.9 Chronic kidney disease stage: unspecified stage Uncontrolled diabetes mellitus E11.65 Acute renal failure superimposed on chronic kidney disease N17.9; N18.9 Acute renal failure type: unspecified Chronic kidney disease stage: unspecified stage Sepsis A41.9 Acute hyperkalemia E87.5 Hypothermia T68.XXXA Septic shock A41.9; R65.21 NSVT (nonsustained ventricular tachycardia) I47.29 Non-ST elevation AL (NSTEMI) I21.4 Acute respiratory failure with hypoxia and hypercapnia J96.01; J96.02 Acute on chronic diastolic CHF (congestive heart failure) I50.33 Protein calorie malnutrition E46 Physical deconditioning R53.81 Gallbladder sludge K82.8
--- NOTE | 2023-01-20 12:55 | PC.HD ---
Order recieved for dialysis treatment today d/t hyperkalemia (5.8 at 5am), however blood collected around 10 [address] K [address] Yola fisher, dialysis treatment on hold for today.
--- NOTE | 2023-01-20 13:30 | PC.SOCIAL ---
IMM update IMM updated with patient. Verbalized an understanding. Copy PG 2 provided. Initialled, dated,timed, and placed in chart.
--- NOTE | 2023-01-20 14:11 | PM.PN ---
Subjective Subjective: Patient seen and examined. shrimp peeling machine tender in the right upper quadrant but refusing surgery. Family would like to proceed when possible Vitals/I&O/Wt Last Vital Signs Temp 97.6 F 01/20/23 08:00 Pulse 104 H 01/20/23 13:15 Resp 22 H 01/20/23 13:15 BP 147/81 01/20/23 13:15 Pulse Ox 98 01/20/23 13:15 O2 Del Method Nasal Cannula 01/20/23 10:47 O2 Flow Rate 3 01/20/23 10:47 01/19/23 01/20/23 01/20/23 22:59 06:59 14:59 Intake Total 1920 / 2488.433 1150 / 3638.433 410.1 / 410.1 Output Total 2974 / 2974 2988 Balance -1054 / -706.351 1378 / 649.433 410.1 / 410.1 Weight last 48 hrs Weight 90 lb 3 oz Weight 91 lb 11.397 oz Weight 92 lb Weight 91 lb 11.397 oz Physical Exam Narrative: General: No acute distress, awake alert and oriented x3 Abdomen: Soft, nondistended, tender to palpation right upper quadrant, positive Nichole's Urinary Catheter Management: Dickson: Cath Placed During This Visit: yes Reason for Continuing Indwelling Catheter: Accurate Measurement of Urinary Output in Critically Ill Patients Urinary Catheter Date of Insertion: 01/17/23 Urinary Catheter Time of Insertion: 22:15 Data 01/20/23 05:55 01/20/23 10:16 Micro: Microbiology 01/17/23 23:08 Urine Culture - Final Urine Catheterized A&P Assessment and plan (1) Cholecystitis: Plan Cardiac patient who is a very high risk for surgery. She does have cholecystitis however. I would be willing to consider cholecystectomy if she was medically optimized and cleared by cardiology. However patient is verbally refusing surgery Medical management per hospitalist Attestations Medical Necessity Statement*: Per primary Coding Level of Care Code Acute Code for [facility] Diagnoses Cholecystitis K81.9
[2023-01-20 14:48] LABS: Anion Gap 17.9 (5-19); Blood Urea Nitrogen 20 mg/dL (8-23); Calcium 7.2 mg/dL (8.5-10.5); Carbon Dioxide 23 mmol/L (22-29); Chloride 92 mmol/L (98-107); Glomerular Filtration Rate 29.8 mL/min (90-130); Glucose 215 mg/dL (65-115); Osmolality Calculated 277 mOsm/kg (285-295); Potassium 3.9 mmol/L (3.5-5.1); Sodium 129 mmol/L (136-145)
[2023-01-20 17:28] LABS: Glucose Point of Care 226 mg/dL (70-110)
[2023-01-20] MEDS: metoprolol tartrate 25 mg Tablet 12.5 MG PO (20:00)
[2023-01-20] MEDS: vancomycin 750 MG in sodium chloride 0.9% 250 ML 250 MG IV (22:00)
[2023-01-21] VITALS (34 sets, daily range): BP systolic 118–145; BP diastolic 70–91; PULSE 67–93; RESP 13–39; TEMP 36.6–36.8; O2SAT 88–98
[2023-01-21] MEDS: LORazepam 0.5 mg Tablet PO ×2 (01:51→17:37)
[2023-01-21] MEDS: clopidogrel 75 mg Tablet PO (05:16)
[2023-01-21] MEDS: acetaminophen 325 mg Tablet 650 MG PO (05:17)
[2023-01-21 05:59] LABS: Basophils % 0.2 %; Eosinophils # 0.1 10^3/uL (0.0-0.8); Eosinophils % 0.9 %; Hematocrit 32.6 % (37.0-47.0); Hemoglobin 10.4 g/dL (11.5-15.3); Lymphocytes # 1.4 10^3/uL (0.8-4.8); Lymphocytes % 24.6 %; Mean Corpuscular HGB Conc 31.9 g/dL (30.0-36.0); Mean Corpuscular Hemoglobin 30.8 pg (28.0-34.0); Mean Corpuscular Volume 96.4 fl (81-99); Mean Platelet Volume 10.3 fL (7.4-10.4); Monocytes # 0.4 10^3/uL (0.2-0.9); Monocytes % 7.3 %; Neutrophils # 3.83 10^3/uL (1.8-7.7); Neutrophils % 66.7 %; Nucleated Red Blood Cells % 0 %; Platelet Count 283 10^3/cmm (130-400); Red Blood Count 3.38 10^6/uL (4.1-5.3); Red Cell Distribution Width 14.5 % (12.1-15.1); White Blood Count 5.7 10^3/uL (4.0-10.0)
[2023-01-21 07:26] LABS: Glucose Point of Care 206 mg/dL (70-110)
[2023-01-21 08:15] LABS: Lactate (Lactic Acid level) 1.5 mmol/L (0.5-2.2)
[2023-01-21 08:26] LABS: Procalcitonin 1.91 ng/mL (0-0.5)
[2023-01-21] MEDS: aspirin 81 mg EC Tablet PO (08:31)
[2023-01-21] MEDS: liothyronine 5 mcg Tablet 10 MCG PO (08:31)
[2023-01-21] MEDS: levothyroxine 50 mcg Tablet PO (08:31)
[2023-01-21] MEDS: fenofibrate 145 mg Tablet PO (08:31)
[2023-01-21] MEDS: metoprolol tartrate 25 mg Tablet 12.5 MG PO (08:31)
[2023-01-21] MEDS: insulin lispro 100 unit/1 mL SUBCUT ×2 (08:32→13:51)
[2023-01-21] MEDS: heparin 5,000 unit/mL INJ 1 mL 5000 UNIT SUBCUT ×2 (08:33→20:40)
[2023-01-21 08:39] LABS: Alanine Aminotransferase 99 U/L (0-33); Albumin Level 2.7 g/dL (3.5-5.2); Alkaline Phosphatase 397 U/L (35-105); Anion Gap 14.4 (5-19); Aspartate Amino Transferase 240 U/L (0-32); Blood Urea Nitrogen 32 mg/dL (8-23); C Reactive Protein 38.5 mg/L (0.0-4.9); Calcium 7.7 mg/dL (8.5-10.5); Carbon Dioxide 22 mmol/L (22-29); Chloride 89 mmol/L (98-107); Creatinine Clr Calc Pharmacy 17.3487; Globulin 2.6 g/dL (1.3-4.6); Glucose 230 mg/dL (65-115); Magnesium 1.9 mg/dL (1.7-2.3); Osmolality Calculated 264 mOsm/kg (285-295); Potassium 5.4 mmol/L (3.5-5.1); Sodium 120 mmol/L (136-145); Total Bilirubin 0.4 mg/dL (0.15-1.2); Total Protein 5.3 g/dL (6.6-8.7)
--- NOTE | 2023-01-21 09:07 | PM.PN ---
Subjective Subjective: Patient stable. Still on and off abdominal pain. Vitals/I&O/Wt Last Vital Signs Temp 97.9 F 01/21/23 04:00 Pulse 87 01/21/23 08:00 Resp 14 01/21/23 08:00 BP 140/88 01/21/23 08:00 Pulse Ox 93 01/21/23 08:00 O2 Del Method Nasal Cannula 01/21/23 08:00 O2 Flow Rate 2 01/21/23 08:00 01/20/23 01/21/23 01/21/23 22:59 06:59 14:59 Intake Total 50 / 460.1 250 / 710.1 Output Total 0 / 0 Balance 50 / 460.1 250 / 710.1 Weight last 48 hrs Weight 96 lb 11.2 oz Weight 90 lb 3 oz Weight 91 lb 11.397 oz Physical Exam Narrative: GENERAL: Patient is alert, awake and oriented x3. [] NECK: No jugular vein distension. [] HEENT: No cyanosis. No icterus. No pallor. [] HEART: Regular S1 and S2. No murmur, rub or gallop. [] LUNGS: Clear to auscultate bilaterally. [] ABDOMEN: Soft,Has abdominal tenderness CENTRAL NERVOUS SYSTEM: Grossly nonfocal. [] EXTREMITIES: Lower extremities with no edema Urinary Catheter Management: Dickson: Cath Placed During This Visit: yes Reason for Continuing Indwelling Catheter: Accurate Measurement of Urinary Output in Critically Ill Patients Urinary Catheter Date of Insertion: 01/17/23 Urinary Catheter Time of Insertion: 22:15 Data 01/23/23 14:55 01/23/23 14:55 Micro: Microbiology 01/20/23 21:45 C.difficile Toxin B Gene (PCR) - Final Stool Routine Collection 01/17/23 23:08 Urine Culture - Final Urine Catheterized A&P Assessment and plan (1) Cholecystitis: (2) S/P CABG (coronary artery bypass graft): (3) DKA (diabetic ketoacidosis): (4) Pre-operative clearance: Plan Patient is stable from cardiac standpoint. We will uptitrate metoprolol to 50 mg twice daily. Continue Plavix. Patient is not sure about surgery at this time however she is at acceptable cardiac risk to undergo procedure if needed and she agrees to it. Echo shows unchanged EF and severely reduced LV systolic function. Thank you for involving us with care of this patient. We will continue to follow. Please call with questions. Attestations Medical Necessity Statement*: Care expected to cross 2 midnights. Coding Level of Care Code Acute Code for Chg Fwd Diagnoses Cholecystitis K81.9 S/P CABG (coronary artery bypass graft) Z95.1 DKA (diabetic ketoacidosis) E11.10 Pre-operative clearance Z01.818
[2023-01-21 09:46] LABS: NT Pro B Type Natriuretic Pept > 70000 pg/mL (0-125)
--- NOTE | 2023-01-21 11:09 | P.PN_ITS ---
Subjective Subjective: Patient seen and examined. can filling and closing machine tender in the right upper quadrant. Family would like to proceed when possible and patient seems more amenable today, but still awaiting cardiology input Vitals/I&O/Wt Last Vital Signs Temp 98.1 F 01/21/23 10:00 Pulse 69 01/21/23 10:00 Resp 18 01/21/23 10:00 BP 127/77 01/21/23 10:00 Pulse Ox 96 01/21/23 10:00 O2 Del Method Nasal Cannula 01/21/23 10:00 O2 Flow Rate 2 01/21/23 10:00 01/20/23 01/21/23 01/21/23 22:59 06:59 14:59 Intake Total 50 / 460.1 250 / 710.1 Output Total 0 / 0 Balance 50 / 460.1 250 / 710.1 Weight last 48 hrs Weight 96 lb 11.2 oz Weight 90 lb 3 oz Weight 91 lb 11.397 oz Physical Exam Narrative: General: No acute distress, awake alert and oriented x3 Abdomen: Soft, nondistended, tender to palpation right upper quadrant, positive Nichole's Urinary Catheter Management: Dickson: Cath Placed During This Visit: yes Reason for Continuing Indwelling Catheter: Accurate Measurement of Urinary Output in Critically Ill Patients Urinary Catheter Date of Insertion: 01/17/23 Urinary Catheter Time of Insertion: 22:15 Data 01/21/23 05:41 01/21/23 07:48 Micro: Microbiology 01/20/23 21:45 C.difficile Toxin B Gene (PCR) - Final Stool Routine Collection 01/17/23 23:08 Urine Culture - Final Urine Catheterized A&P Assessment and plan (1) Cholecystitis: Plan Cardiac patient who is a very high risk for surgery. She does have cholecystitis however. I would be willing to consider cholecystectomy if she was medically optimized and cleared by cardiology. Awaiting cardiology input Medical management per hospitalist Attestations Medical Necessity Statement*: Per primary Coding Level of Care Code Acute Code for [facility] Diagnoses Cholecystitis K81.9
[2023-01-21] MEDS: piperacillin-tazobactam 3.375 GM in sodium chloride 0.9% (plus) 50 ML IV ×2 (11:18→21:50)
[2023-01-21] MEDS: sodium chloride 0.9% 1,000 ML 100 ML IV ×2 (11:19→20:40)
[2023-01-21 11:28] LABS: Glucose Point of Care 174 mg/dL (70-110)
[2023-01-21 12:34] LABS: Glucose Point of Care 130 mg/dL (70-110)
[2023-01-21 13:30] LABS: Anion Gap 15.2 (5-19); Blood Urea Nitrogen 35 mg/dL (8-23); Calcium 8.1 mg/dL (8.5-10.5); Carbon Dioxide 24 mmol/L (22-29); Chloride 95 mmol/L (98-107); Glomerular Filtration Rate 18.3 mL/min (90-130); Glucose 133 mg/dL (65-115); Osmolality Calculated 278 mOsm/kg (285-295); Potassium 5.2 mmol/L (3.5-5.1); Sodium 129 mmol/L (136-145)
--- NOTE | 2023-01-21 14:58 | P.PN_ITS ---
Subjective Subjective: - Patient was seen multiple times throughout the morning -Early in the morning she was seen, she does complain of right upper quadrant pain, no nausea, no vomiting, does report a better appetite, no fevers, no chills -I had a discussion about her cholecystitis concerns for distended gallbladder c oncerns for systemic infection and lactic acidosis -She has declined surgery as per her discussion with surgeon -I had a discussion with her about this, and asked her if she wanted to have surgery she says no, but my daughter wants me to have surgery -I advised her it is up to her if she wants to have surgery and she says she is unsure -I asked her what her plan was and she says that she wants to go home, but she just feels too weak to go home today -She tells me she does not have an answer in terms of what she wants to do for her gallbladder -Patient was reexamined in the afternoon, she sitting up in a chair - Vitals/I&O/Wt Last Vital Signs Temp 97.9 F 01/21/23 14:00 Pulse 71 01/21/23 14:00 Resp 14 01/21/23 14:00 BP 133/85 01/21/23 14:00 Pulse Ox 94 01/21/23 14:00 O2 Del Method Nasal Cannula 01/21/23 14:00 O2 Flow Rate 2 01/21/23 14:00 01/20/23 01/21/23 01/21/23 22:59 06:59 14:59 Intake Total 50 / 460.1 300 / 760.1 Output Total 0 / 0 Balance 50 / 460.1 300 / 760.1 Weight last 48 hrs Weight 43.862 kg Weight 40.908 kg Weight 41.6 kg Physical Exam Const: COMMON NORMALS: no acute distress and patient oriented x3 Neck/C-Spine: COMMON NORMALS: no JVD Resp: COMMON NORMALS: normal respiratory effort, No retractions, No use of accessory muscles and clear to auscultation bilaterally AUSCULTATION: clear to auscultation bilaterally Cardio: COMMON NORMALS: no JVD, regular rate, regular rhythm, S1 normal heart sound present and S2 normal heart sound present RATE: regular rate RHYTHM: regular rhythm HEART SOUNDS: S1 normal heart sound present and S2 normal heart sound present GI: COMMON NORMALS: Normal to inspection, nondistended, normoactive bowel s ounds present and non-tender Extremity: COMMON NORMALS: no pedal edema Neuro: COMMON NORMALS: patient oriented x3 Psych: COMMON NORMALS: mental status grossly normal Urinary Catheter Management: Dickson: Cath Placed During This Visit: yes Reason for Continuing Indwelling Catheter: Accurate Measurement of Urinary Output in Critically Ill Patients Urinary Catheter Date of Insertion: 01/17/23 Urinary Catheter Time of Insertion: 22:15 Data 01/21/23 05:41 01/21/23 12:25 Micro: Microbiology 01/20/23 21:45 C.difficile Toxin B Gene (PCR) - Final Stool Routine Collection 01/17/23 23:08 Urine Culture - Final Urine Catheterized A&P Assessment and plan (1) DKA (diabetic ketoacidosis): Qualifiers: Diabetes mellitus type: type 2 Diabetes mellitus complication detail: without coma Qualified Code(s): E11.10 - Type 2 diabetes mellitus with ketoacidosis without coma (2) High anion gap metabolic acidosis: (3) Lactic acidosis: (4) Acute encephalopathy: (5) Hyperkalemia: (6) End-stage renal disease needing dialysis: (7) Missed dialysis: (8) S/P CABG (coronary artery bypass graft): (9) Uremia: (10) CKD (chronic kidney disease): Qualifiers: Chronic kidney disease stage: unspecified stage Qualified Code(s): N18.9 - Chronic kidney disease, unspecified (11) Uncontrolled diabetes mellitus: (12) Acute renal failure superimposed on chronic kidney disease: Qualifiers: Acute renal failure type: unspecified Chronic kidney disease stage: unspecified stage Qualified Code(s): N17.9 - Acute kidney failure, unspecified; N18.9 - Chronic kidney disease, unspecified (13) Sepsis: (14) Uremia: (15) Acute hyperkalemia: (16) DKA (diabetic ketoacidosis): (17) Hypothermia: (18) Septic shock: (19) NSVT (nonsustained ventricular tachycardia): (20) Non-ST elevation OR (NSTEMI): (21) Acute respiratory failure with hypoxia and hypercapnia: (22) Acute on chronic diastolic CHF (congestive heart failure): (23) Protein calorie malnutrition: (24) Physical deconditioning: (25) NSTEMI (non-ST elevated myocardial infarction): (26) End-stage renal disease needing dialysis: (27) Gallbladder sludge: Plan Diabetic ketoacidosis -Resolved -Subcu insulin -Encourage p.o. intake, diabetic diet Lactic acidosis, resolved -Possibly combination of DKA, dehydration, UTI, concerns for gallbladder infection -Now persistent lactic acidosis, highly suspicious for gallbladder infection - sputum culture, blood cultures -Continue vancomycin, Zosyn RUQ, highly concerning for acute cholecystitis -Right upper quadrant ultrasound shows 1.? Layering sludge and small stones in the gallbladder. Gallbladder is mildly hydropic with a small amount of pericholecystic fluid. The extent of sludge has decreased since 11/15/2022. 2.? No bile duct dilatation. 3.? Mild hepatomegaly and hepatic steatosis. -Continues to have right upper quadrant tenderness, pain, bloating, poor appetite, evidence of lactic acidosis as above, -Definitive treatment would be to remove gallbladder, if we could optimize her for surgery -Cholecystostomy tube would be a temporary measure, it would allow for infection and source control, however she will need to have surgery at some point -Other options were as hospice given her underlying medical conditions -This morning patient declined surgery, she wants to think on it, she wants to talk to her daughter -We will continue Zosyn for now -General surgery consulted Ischemic cardiomyopathy -?Left ventricle is mildly dilated ?LV systolic function is severely reduced with EF of 20-25%. ?Left atrial dilation ?Mild to moderate mitral regurgitation ?Compared to prior echocardiogram from 11/2022, no significant ?changes are seen -No complaints of chest pain, shortness of breath, does not look fluid overloaded -I reviewed patient's prior medical records patient had a coronary artery bypass graft in August 2021 in [place], postoperatively she did not have any follow-up -She eventually followed up with physician industrial in [facility], and March 21, 2022, she underwent cardiac catheterization and was found to have 5 out of 5 bypass patent, she was noted to have small first marginal 8, and posterior lateral branch had severe disease however given vessel size these are recommended for medical management -As per documentation Dr. Schmidt at [facility], initially recommended proceeding with surgical invention for her gallbladder back in July moderate risk, unfortunately she was found to have bilateral pleural effusions on her preop chest x-ray, mentioned requiring thoracocentesis, and actually had chest tubes placed which were eventually removed -During her previous hospitalization she was seen, and it was recommended for ICD placement however patient declined we will see if she can potentially have a chest vest fitted -Continue aspirin, Plavix, add beta-shanthi -Consult cardiology from cardiac optimization UTI -zosyn NSTEMI -type 2 nstemi -likely supply demand ischemia from sepsis Septic shock -resolved -secondary to uti, gallbladder disease, possible pneumonia Sepsis -Has persistent evidence of sepsis, with lactic acidosis, concerning for patient's gallbladder disease Possible pneumonia -antibiotics as above Hyperkalemia -We will give another amp of D50, with insulin this morning -Continue Lokelma -Will be dialyzed MYNOR on CKD -Monitor Serial EKGs serial troponins telemetry monitoring Acute encephalopathy, resolved, likely multifactorial from DKA, lactic acidosis, dehydration, uremia, possible infection such as pneumonia, uti, gallbladder disease Elevated ammonia levels monitor, will consider lactulose Hyponatremia likely due to poor oral intake, monitor Transaminitis with elevated alk phos Hypothermia, resolved, secondary to DKA, lactic acidosis, hyperkalemia Hypothyroidism, continue levothyroxine, added Cytomel Full code Heparin for DVT prophylaxis Spoke to general surgery Spoke to cardiology Attestations Medical Necessity Statement*: Patient requires hospitalization for acute cholecystitis, right upper quadrant pain, ischemic cardiomyopathy, hypoglycemia, hyponatremia, Diagnoses DKA (diabetic ketoacidosis) E11.10 Diabetes mellitus type: type 2 Diabetes mellitus complication detail: without coma High anion gap metabolic acidosis E87.29 Lactic acidosis E87.20 Acute encephalopathy G93.40 Hyperkalemia E87.5 End-stage renal disease needing dialysis N18.6; Z99.2 Missed dialysis S/P CABG (coronary artery bypass graft) Z95.1 Uremia N19 CKD (chronic kidney disease) N18.9 Chronic kidney disease stage: unspecified stage Uncontrolled diabetes mellitus E11.65 Acute renal failure superimposed on chronic kidney disease N17.9; N18.9 Acute renal failure type: unspecified Chronic kidney disease stage: unspecified stage Sepsis A41.9 Acute hyperkalemia E87.5 Hypothermia T68.XXXA Septic shock A41.9; R65.21 NSVT (nonsustained ventricular tachycardia) I47.29 Non-ST elevation OR (NSTEMI) I21.4 Acute respiratory failure with hypoxia and hypercapnia J96.01; J96.02 Acute on chronic diastolic CHF (congestive heart failure) I50.33 Protein calorie malnutrition E46 Physical deconditioning R53.81 Gallbladder sludge K82.8
--- NOTE | 2023-01-21 15:53 | PC.NURSE ---
Pt transferred to [facility] via bed. Report given to Lauren. No needs voiced at this time.
--- NOTE | 2023-01-21 15:58 | PC.NURSE ---
daughter updated regarding transfer to med surg.
[2023-01-21 16:49] LABS: Glucose Point of Care 115 mg/dL (70-110)
[2023-01-21 20:44] LABS: Glucose Point of Care 151 mg/dL (70-110)
--- NOTE | 2023-01-21 21:00 | PC.NURSE ---
Patient refusing PO medications at this time. Attempted approximately an hour ago as well. Patient states each time I'm not awake yet, leave me alone. Patient educated multiple times. Patient is currently able to tell me that she is in the hospital, but states that we are in [place]. Patient is able to tell me the correct month and year.
--- NOTE | 2023-01-21 21:16 | PM.PN ---
Subjective Subjective: on 2L FIO2 Medications: Reviewed: Yes Vitals/I&O/Wt Last Vital Signs Temp 98.2 F 01/21/23 19:50 Pulse 72 01/21/23 19:50 Resp 18 01/21/23 19:50 BP 122/70 01/21/23 19:50 Pulse Ox 97 01/21/23 19:50 O2 Del Method Room Air 01/21/23 19:50 O2 Flow Rate 2 01/21/23 14:00 01/21/23 01/21/23 01/21/23 06:59 14:59 22:59 Intake Total 300 / 760.1 1055 / 1055 Output Total 0 / 0 Balance 300 / 760.1 1055 / 1055 Weight last 48 hrs Weight 43.862 kg Weight 40.908 kg Weight 41.6 kg Physical Exam Narrative: awake , alert HEENT s1 s2 rrr per report clear smita per report no edema Urinary Catheter Management: Dickson: Cath Placed During This Visit: yes Reason for Continuing Indwelling Catheter: Accurate Measurement of Urinary Output in Critically Ill Patients Urinary Catheter Date of Insertion: 01/17/23 Urinary Catheter Time of Insertion: 22:15 Data 01/21/23 05:41 01/21/23 12:25 Micro: Microbiology 01/20/23 21:45 C.difficile Toxin B Gene (PCR) - Final Stool Routine Collection A&P Assessment and plan (1) End-stage renal disease needing dialysis: Plan 1. End-stage renal disease: Missed dialysis, patient presented with hyperkalemia as well as volume overload. Hemodialysis sunday 2. Persistent Hyperkalemia: HD as above, lokelma ordered 3. High anion gap metabolic acidosis: Due to DKA, 4. History of hypertension: Blood pressure borderline low, monitor 5. Hyponatremia: Na 129 Patient evaluated using audiovisual cart. Time spent 45 minutes Attestations Medical Necessity Statement*: per medicine Coding Level of Care Code Acute Code for [facility]g Fwd Diagnoses End-stage renal disease needing dialysis N18.6; Z99.2
--- NOTE | 2023-01-21 21:22 | PC.NURSE ---
Patient obtained skin tear to right lower extremity in shower. Patient states that she didn't bump anything, but that is happened while washing her skin. Pressure dressing applied.
[2023-01-22] VITALS (7 sets, daily range): BP systolic 112–162; BP diastolic 64–92; PULSE 65–83; RESP 14–18; TEMP 36–37.2; O2SAT 89–97
[2023-01-22] MEDS: LORazepam 0.5 mg Tablet PO ×2 (04:33→22:19)
[2023-01-22] MEDS: clopidogrel 75 mg Tablet PO (04:34)
--- NOTE | 2023-01-22 04:35 | PC.NURSE ---
Addendum entered by Elisha Kirby RN 01/22/23 06:13: Patient stated I want my Ativan. Original Note: Patient requesting Ativan at this time. PRN Ativan given.
[2023-01-22 05:43] LABS: Basophils % 0.2 %; Eosinophils % 0.5 %; Hematocrit 30.5 % (37.0-47.0); Hemoglobin 9.5 g/dL (11.5-15.3); Lymphocytes # 1.1 10^3/uL (0.8-4.8); Lymphocytes % 18.8 %; Mean Corpuscular HGB Conc 31.1 g/dL (30.0-36.0); Mean Corpuscular Hemoglobin 30.1 pg (28.0-34.0); Mean Corpuscular Volume 96.5 fl (81-99); Mean Platelet Volume 10.8 fL (7.4-10.4); Monocytes # 0.5 10^3/uL (0.2-0.9); Monocytes % 7.8 %; Neutrophils # 4.23 10^3/uL (1.8-7.7); Neutrophils % 72.2 %; Nucleated Red Blood Cells % 0 %; Platelet Count 263 10^3/cmm (130-400); Red Blood Count 3.16 10^6/uL (4.1-5.3); Red Cell Distribution Width 14.5 % (12.1-15.1); White Blood Count 5.9 10^3/uL (4.0-10.0)
[2023-01-22 06:36] LABS: Glucose Point of Care 294 mg/dL (70-110)
[2023-01-22 07:49] LABS: Procalcitonin 1.68 ng/mL (0-0.5)
[2023-01-22 08:02] LABS: Alanine Aminotransferase 107 U/L (0-33); Albumin Level 2.5 g/dL (3.5-5.2); Alkaline Phosphatase 312 U/L (35-105); Anion Gap 22.8 (5-19); Aspartate Amino Transferase 180 U/L (0-32); Blood Urea Nitrogen 41 mg/dL (8-23); C Reactive Protein 32.4 mg/L (0.0-4.9); Carbon Dioxide 17 mmol/L (22-29); Chloride 94 mmol/L (98-107); Globulin 2.6 g/dL (1.3-4.6); Glomerular Filtration Rate 15.5 mL/min (90-130); Glucose 321 mg/dL (65-115); Magnesium 2.1 mg/dL (1.7-2.3); Osmolality Calculated 288 mOsm/kg (285-295); Phosphorus 5.8 mg/dL (2.5-4.5); Potassium 5.8 mmol/L (3.5-5.1); Sodium 128 mmol/L (136-145); Total Bilirubin 0.4 mg/dL (0.15-1.2); Total Protein 5.1 g/dL (6.6-8.7)
[2023-01-22 08:18] LABS: NT Pro B Type Natriuretic Pept > 70000 pg/mL (0-125)
--- NOTE | 2023-01-22 08:59 | PC.SOCIAL ---
IMM update IMM updated with patient. Verbalized an understanding. Copy Pg 2 provided. Initialled, dated, timed, and placed in chart.
[2023-01-22] MEDS: levothyroxine 50 mcg Tablet PO (09:46)
[2023-01-22] MEDS: aspirin 81 mg EC Tablet PO (09:47)
[2023-01-22] MEDS: metoprolol tartrate 25 mg Tablet 50 MG PO ×2 (09:47→21:42)
[2023-01-22] MEDS: fenofibrate 145 mg Tablet PO (09:47)
[2023-01-22] MEDS: sodium chloride 0.9% 1,000 ML 100 ML IV (09:48)
[2023-01-22] MEDS: heparin 5,000 unit/mL INJ 1 mL 5000 UNIT SUBCUT ×2 (09:48→21:41)
[2023-01-22] MEDS: insulin lispro 100 unit/1 mL SUBCUT (09:48)
[2023-01-22] MEDS: liothyronine 5 mcg Tablet 10 MCG PO (09:49)
--- NOTE | 2023-01-22 10:13 | PM.PN ---
Vitals/I&O/Wt Last Vital Signs Temp 97.7 F 01/22/23 07:50 Pulse 83 01/22/23 07:50 Resp 18 01/22/23 07:50 BP 162/92 01/22/23 07:50 Pulse Ox 89 L 01/22/23 07:50 O2 Del Method Nasal Cannula 01/22/23 07:50 O2 Flow Rate 2 01/21/23 14:00 01/21/23 01/22/23 01/22/23 22:59 06:59 14:59 Intake Total 1105 / 1105 50 / 1155 1518 / 1518 Output Total 100 / 100 200 / 300 Balance 1005 / 1005 -150 / 855 1518 / 1518 Weight last 48 hrs Weight 102 lb Weight 107 lb 3.2 oz Weight 96 lb 11.2 oz Physical Exam Urinary Catheter Management: Dickson: Cath Placed During This Visit: yes Reason for Continuing Indwelling Catheter: Accurate Measurement of Urinary Output in Critically Ill Patients Urinary Catheter Date of Insertion: 01/17/23 Urinary Catheter Time of Insertion: 22:15 Data 01/22/23 05:04 01/22/23 07:13 Coding Level of Care Code Acute Code for Chg Fwd Diagnoses
--- NOTE | 2023-01-22 10:34 | PM.PN ---
Subjective Subjective: weak, nausea, sob, on fluids. does not want GB surgery. Medications: Reviewed: Yes Medication Review Details: Current Medications Acetaminophen (Acetaminophen 325 Mg Tablet) 650 mg PO Q6H PRN PRN Reason: Mild/Mod Pain Or Temp >/= 101 Last Admin: 01/21/23 05:17 Dose: 650 mg Aspirin (Aspirin 81 Mg Ec Tablet) 81 mg PO DAILY [facility] Last Admin: 01/22/23 09:47 Dose: 81 mg Clopidogrel Bisulfate (Clopidogrel 75 Mg Tablet) 75 mg PO QAM [facility] Last Admin: 01/22/23 04:34 Dose: 75 mg Dextrose (Dextrose 50% Syringe 50 Ml) 50 ml IVP PRN PRN; Protocol PRN Reason: hypoglycemia protocol Dextrose (Dextrose 50% Syringe 50 Ml) 25 ml IVP ONCE PRN; Protocol PRN Reason: hypoglycemia protocol Dextrose (Dextrose 50% Syringe 50 Ml) 50 ml IVP PRN PRN; Protocol PRN Reason: hypoglycemia protocol Dextrose (Dextrose 50% Syringe 50 Ml) 25 ml IVP ONCE PRN; Protocol PRN Reason: hypoglycemia protocol Dextrose (Dextrose 50% Syringe 50 Ml) 50 ml IVP PRN PRN; Protocol PRN Reason: hypoglycemia protocol Dextrose (Dextrose 50% Syringe 50 Ml) 25 ml IVP ONCE PRN; Protocol PRN Reason: hypoglycemia protocol Fenofibrate (Fenofibrate 145 Mg Tablet) 145 mg PO DAILY [facility] Last Admin: 01/22/23 09:47 Dose: 145 mg Glucagon (Glucagon 1 Mg/Ml Inj 1 Ml) 1 mg IM ONCE PRN; Protocol PRN Reason: Adult Acute Hypoglycemia Prot Glucagon (Glucagon 1 Mg/Ml Inj 1 Ml) 1 mg IM ONCE PRN; Protocol PRN Reason: Adult Acute Hypoglycemia Prot. Glucagon (Glucagon 1 Mg/Ml Inj 1 Ml) 1 mg IM ONCE PRN; Protocol PRN Reason: Adult Acute Hypoglycemia Prot. Heparin Sodium (Porcine) (Heparin 5,000 Unit/Ml Inj 1 Ml) 5,000 unit SUBCUT Q12H [facility] Last Admin: 01/22/23 09:48 Dose: 5,000 unit Heparin Sodium (Porcine) (Heparin, Porcine 1,000 Unit/Ml Inj 10 Ml) 0 unit HE PRN PRN PRN Reason: DIALYSIS USE ONLY Last Admin: 01/19/23 20:39 Dose: 10,000 unit Dextrose (D5w) 500 mls @ 100 mls/hr IV ONCE PRN; Protocol PRN Reason: Adult Acute Hypoglycemia Prot Albumin Human (Albumin) 12.5 gm in 50 mls @ 60 mls/hr IV PRN PRN PRN Reason: Hypotension and/or symptomatic Piperacillin Sod/Tazobactam (Sod 3.375 gm/ Sodium Chloride) 50 mls @ 12.5 mls/hr IV Q12H [facility]; Protocol Last Infusion: 01/22/23 01:43 Dose: Infused Sodium Chloride (Sodium Chloride 0.9%) 1,000 mls @ 0 mls/hr IV .Q0M PRN PRN Reason: hypotension or symptomatic Dextrose (D5w) 500 mls @ 100 mls/hr IV ONCE PRN; Protocol PRN Reason: Adult Acute Hypoglycemia Prot Dextrose (D5w) 500 mls @ 100 mls/hr IV ONCE PRN; Protocol PRN Reason: Adult Acute Hypoglycemia Prot Albumin Human (Albumin) 12.5 gm in 50 mls @ 60 mls/hr IV PRN PRN PRN Reason: Hypotension and/or symptomatic Sodium Chloride (Sodium Chloride 0.9%) 1,000 mls @ 0 mls/hr IV .Q0M PRN PRN Reason: hypotension or symptomatic Sodium Chloride (Sodium Chloride 0.9%) 1,000 mls @ 100 mls/hr IV .Q10H [facility] Last Admin: 01/22/23 09:48 Dose: 100 mls/hr Insulin Human Lispro (Insulin Lispro 100 Unit/1 Ml) 0 unit SUBCUT TIDWM [facility]; Protocol Last Admin: 01/22/23 09:48 Dose: 8 unit Levothyroxine Sodium (Levothyroxine 50 Mcg Tablet) 50 mcg PO DAILY [facility] Last Admin: 01/22/23 09:46 Dose: 50 mcg Liothyronine Sodium (Liothyronine 5 Mcg Tablet) 10 mcg PO DAILY [facility] Last Admin: 01/22/23 09:49 Dose: 10 mcg Lorazepam (Lorazepam 0.5 Mg Tablet) 0.5 mg PO TID PRN PRN Reason: ANXIETY Last Admin: 01/22/23 04:33 Dose: 0.5 mg Metoprolol Tartrate (Metoprolol Tartrate 25 Mg Tablet) 50 mg PO BID@0900,2100 [facility] Last Admin: 01/22/23 09:47 Dose: 50 mg Morphine Sulfate (Morphine 4 Mg/Ml Sdv 1 Ml) 1 mg IVP Q4H PRN PRN Reason: SEVERE PAIN Non-Formulary Medication (Lokelma) 10 gram PO DAILY [facility] Last Admin: 01/22/23 08:15 Dose: Not Given Ondansetron HCl (Ondansetron 2 Mg/Ml Sdv 2 Ml) 4 mg IVP Q8H PRN PRN Reason: vomiting, or N/V if npo Zolpidem Tartrate (Zolpidem 5 Mg Tablet) 5 mg PO BEDTIME PRN PRN Reason: INSOMNIA Vitals/I&O/Wt Last Vital Signs Temp 97.7 F 01/22/23 07:50 Pulse 83 01/22/23 07:50 Resp 18 01/22/23 07:50 BP 162/92 01/22/23 07:50 Pulse Ox 89 L 01/22/23 07:50 O2 Del Method Nasal Cannula 01/22/23 07:50 O2 Flow Rate 2 01/21/23 14:00 01/21/23 01/22/23 01/22/23 22:59 06:59 14:59 Intake Total 1105 / 1105 50 / 1155 1518 / 1518 Output Total 100 / 100 200 / 300 Balance 1005 / 1005 -150 / 855 1518 / 1518 Weight last 48 hrs Weight 46.266 kg Weight 48.625 kg Weight 43.862 kg Physical Exam Narrative: not eating. on ivf- hypoxic vs noted heent- nc/at neck supple lungs wheezes heart reg abd soft, + tender ext benedicto edema rt ij pc Urinary Catheter Management: Dickson: Cath Placed During This Visit: yes Reason for Continuing Indwelling Catheter: Accurate Measurement of Urinary Output in Critically Ill Patients Urinary Catheter Date of Insertion: 01/17/23 Urinary Catheter Time of Insertion: 22:15 Data 01/22/23 05:04 01/22/23 07:13 A&P Assessment and plan (1) End-stage renal disease needing dialysis: 67 yr old 1. ESRD - repeat HDtoday 2. hyperkalemia- hd 3.inc AGMA- repeat acetone. insulin, HD 4. RUQ tender and inc LFTS- Q cholecystitis- per pt, medicine, and surgery 5. combined HFr EF and diastolic dysfunction- ef of 20-25% [id number] ivf 6. hyponatremia - d/c ivf and monitor on hd 7. anemia 8. when eating- renal diet and phos binders Plan Patient evaluated using audiovisual cart. Time spent 35+ minutes Attestations Medical Necessity Statement*: cholecystitis, hyponatremia, ESRD Time Spent in Patient Care: Greater than 35 minutes (>than 50% of time spent in counselling and/or direct pt care on unit). seen w/ RN Coding Level of Care Code Acute Code for Chg Fwd Diagnoses End-stage renal disease needing dialysis N18.6; Z99.2
--- NOTE | 2023-01-22 14:02 | PM.PN ---
Subjective Subjective: Patient not feeling well this morning. She is more amenable to surgery however Vitals/I&O/Wt Last Vital Signs Temp 97.7 F 01/22/23 07:50 Pulse 83 01/22/23 07:50 Resp 18 01/22/23 07:50 BP 162/92 01/22/23 07:50 Pulse Ox 89 L 01/22/23 07:50 O2 Del Method Nasal Cannula 01/22/23 07:50 O2 Flow Rate 2 01/21/23 14:00 01/21/23 01/22/23 01/22/23 22:59 06:59 14:59 Intake Total 1105 / 1105 50 / 1155 1653 / 1653 Output Total 100 / 100 200 / 300 Balance 1005 / 1005 -150 / 855 1653 / 1653 Weight last 48 hrs Weight 102 lb Weight 107 lb 3.2 oz Weight 96 lb 11.2 oz Physical Exam Narrative: General: No acute distress, awake alert and oriented x3 Abdomen: Soft, nondistended, tender to palpation right upper quadrant, positive Nichole's Urinary Catheter Management: Dickson: Cath Placed During This Visit: yes Reason for Continuing Indwelling Catheter: Accurate Measurement of Urinary Output in Critically Ill Patients Urinary Catheter Date of Insertion: 01/17/23 Urinary Catheter Time of Insertion: 22:15 Data 01/22/23 05:04 01/22/23 07:13 A&P Assessment and plan (1) Cholecystitis: Plan Cardiac patient who is a very high risk for surgery. She does have cholecystitis however. She has been seen by cardiology N.p.o. after midnight Laparoscopic cholecystectomy in the morning The risks and benefits of the procedure, including but not limited to, bleeding, infection, scar, numbness, pain, damage to surrounding structures, damage to common bile duct requiring additional surgery, conversion to an open procedure, were explained to the patient. He is understanding of the risks and wishes to proceed. This particular patient has an increased risk of cardiac event perioperatively. The patient and family are understanding but still wish to proceed. Medical management per hospitalist Attestations Medical Necessity Statement*: Per primary Coding Level of Care Code Acute Code for [facility] Diagnoses Cholecystitis K81.9
[2023-01-22] MEDS: heparin, porcine 1,000 unit/mL INJ 10 mL HE (15:22)
[2023-01-22] MEDS: piperacillin-tazobactam 3.375 GM in sodium chloride 0.9% (plus) 50 ML IV (15:31)
--- NOTE | 2023-01-22 15:39 | PM.PN ---
Subjective Subjective: Hospital course, labs appreciated. No acute events overnight. Has remained hemodynamically stable and afebrile. Seen during dialysis today. Tolerating well. States feeling okay. Discussed in detail regarding further plans for treatment for cholecystitis. Patient states she is agreeable for cholecystectomy. Confirmed with the patient regarding her plans and again she is agreeable for cholecystectomy. Otherwise has remained stable and afebrile. Vitals/I&O/Wt Last Vital Signs Temp 97.7 F 01/22/23 07:50 Pulse 83 01/22/23 07:50 Resp 18 01/22/23 07:50 BP 162/92 01/22/23 07:50 Pulse Ox 89 L 01/22/23 07:50 O2 Del Method Nasal Cannula 01/22/23 07:50 O2 Flow Rate 2 01/21/23 14:00 01/22/23 01/22/23 01/22/23 06:59 14:59 22:59 Intake Total 50 / 1155 1653 / 1653 Output Total 200 / 300 Balance -150 / 855 1653 / 1653 Weight last 48 hrs Weight 46.266 kg Weight 48.625 kg Weight 43.862 kg Physical Exam Const: COMMON NORMALS: no acute distress and patient oriented x3 EXAM LIMITATIONS: altered mental status NUTRITIONAL APPEARANCE: cachectic ORIENTATION/CONSCIOUSNESS: Yes awake, Yes oriented to person and Yes confused; not oriented to place and not oriented to time HENMT: COMMON NORMALS: normocephalic HEAD & SCALP: normocephalic Eye: OTHER: Pupils equal reactive to light Neck/C-Spine: COMMON NORMALS: no JVD Lymph: LYMPHATIC: no lymphadenopathy noted Chest: OTHER: Right chest dialysis catheter in place Resp: COMMON NORMALS: normal respiratory effort, No retractions, No use of accessory muscles and clear to auscultation bilaterally AUSCULTATION: clear to auscultation bilaterally Cardio: COMMON NORMALS: no JVD, regular rate, regular rhythm, S1 normal heart sound present and S2 normal heart sound present RATE: regular rate RHYTHM: regular rhythm HEART SOUNDS: S1 normal heart sound present and S2 normal heart sound present GI: COMMON NORMALS: Normal to inspection, nondistended, normoactive bowel sounds present, Soft to palpation and non-tender PALPATION: Yes Soft to palpation OTHER: Right upper quadrant tenderness : COMMON NORMALS: Yes no CVA tenderness BLADDER/KIDNEY EXAM: Yes no CVA tenderness Back/Pelvis: COMMON NORMALS: no CVA tenderness Extremity: COMMON NORMALS: no calf tenderness and no pedal edema Neuro: COMMON NORMALS: patient oriented x3 SENSORIUM/ORIENTATION: Yes oriented to person, No oriented to place and No oriented to time OTHER: Does not follow neurologic testing Psych: COMMON NORMALS: cooperative ATTITUDE: Yes calm and Yes Withdrawn affect present ACTIVITY/MOTOR BEHAVIOR: Yes Avoids eye contact (attititude/behavior) SPEECH: Yes minimal and Yes slow MOOD & AFFECT: Yes depressed mood and Yes Flat affect present Urinary Catheter Management: Dickson: Cath Placed During This Visit: yes Reason for Continuing Indwelling Catheter: Accurate Measurement of Urinary Output in Critically Ill Patients Urinary Catheter Date of Insertion: 01/17/23 Urinary Catheter Time of Insertion: 22:15 Data 01/22/23 05:04 01/22/23 07:13 Micro: Microbiology 01/17/23 14:20 Blood Culture - Final Blood NO GROWTH AFTER 5 DAYS 01/17/23 14:20 Blood Culture - Final Blood NO GROWTH AFTER 5 DAYS A&P Assessment and plan (1) Acute cholecystitis: Appreciated on gallbladder ultrasound. Appreciate surgical recommendations. Patient has been recommended in the past as well for cholecystectomy though she has been on and off agreeing and disagreeing with the plan of surgery. Today she is agreeable to cholecystectomy. Did discuss that cholecystostomy tube is not a good idea as it is a bridge to cholecystectomy and with her history of being noncompliant and being unsure of cholecystectomy in the past cholecystostomy tube can just complicate the situation. Both patient and patient's daughter verbalized understanding and are agreeable. Surgical team informed of patient's agreement to go with cholecystectomy today. Plan for n.p.o. after midnight. Patient will be high risk given her history of end-stage renal disease, ischemic cardiomyopathy with EF of 25%, CAD for low risk procedure of cholecystectomy. For now continue with empiric Zosyn. (2) Gallbladder sludge: (3) Sepsis: Resolved. Keep mean artery pressure 65. Blood cultures so far negative. (4) Ischemic cardiomyopathy: For now compensated. Baseline EF of around 20-25% with left atrial dilatation, mild to moderate MR. Appreciate cardiology recommendations. Continue with aspirin, statin, beta-shanthi. We will try to add low-dose KATHY/ARB. Outpatient documents reviewed. -I reviewed patient's prior medical records patient had a coronary artery bypass graft in August 2021 in [place], postoperatively she did not have any follow-up -She eventually followed up with director workforce management in [facility], and March 21, 2022, she underwent cardiac catheterization and was found to have 5 out of 5 bypass patent, she was noted to have small first marginal 8, and posterior lateral branch had severe disease however given vessel size these are recommended for medical management -As per documentation Dr. Schmidt at [facility], initially recommended proceeding with surgical invention for her gallbladder back in July moderate risk, unfortunately she was found to have bilateral pleural effusions on her preop chest x-ray, mentioned requiring thoracocentesis, and actually had chest tubes placed which were eventually removed -During her previous hospitalization she was seen, and it was recommended for ICD placement however patient declined we will see if she can potentially have a chest vest fitted (5) Acute on chronic diastolic CHF (congestive heart failure): (6) End-stage renal disease needing dialysis: Appreciate nephrology recommendations. Continue with dialysis on schedule. (7) DKA (diabetic ketoacidosis): Resolved. A1c 10.3. History of labile blood sugars. Continue insulin sliding scale. Restart home dose of Lantus. Qualifiers: Diabetes mellitus type: type 2 Diabetes mellitus complication detail: without coma Qualified Code(s): E11.10 - Type 2 diabetes mellitus with ketoacidosis without coma (8) High anion gap metabolic acidosis: (9) Lactic acidosis: (10) Acute encephalopathy: (11) Hyperkalemia: (12) Missed dialysis: (13) S/P CABG (coronary artery bypass graft): No active chest pain. Continue with home dose of Plavix, aspirin 81 mg, fenofibrate. (14) Uremia: (15) Uncontrolled diabetes mellitus: (16) Protein calorie malnutrition: (17) Physical deconditioning: Plan Full code. Heparin 5000 every 12 hourly for DVT prophylaxis. Protonix OPD prophylaxis. Care discussed in detail with patient's daughter Ms. Gilliam over the phone. Discussed patient's current desire to go ahead with cholecystectomy. Also discussed that patient is not a candidate for cholecystostomy given her baseline noncompliance and being unsure of cholecystectomy in the past. All the questions were answered. Attestations Medical Necessity Statement*: Requires further hospitalization for management of acute cholecystitis requiring cholecystectomy in a patient with baseline end-stage renal disease on hemodialysis, ischemic cardiomyopathy with EF of 20%, Diagnoses Acute cholecystitis K81.0 Gallbladder sludge K82.8 Sepsis A41.9 Ischemic cardiomyopathy I25.5 Acute on chronic diastolic CHF (congestive heart failure) I50.33 End-stage renal disease needing dialysis N18.6; Z99.2 DKA (diabetic ketoacidosis) E11.10 Diabetes mellitus type: type 2 Diabetes mellitus complication detail: without coma High anion gap metabolic acidosis E87.29 Lactic acidosis E87.20 Acute encephalopathy G93.40 Hyperkalemia E87.5 Missed dialysis S/P CABG (coronary artery bypass graft) Z95.1 Uremia N19 Uncontrolled diabetes mellitus E11.65 Protein calorie malnutrition E46 Physical deconditioning R53.81
[2023-01-22 16:51] LABS: Glucose Point of Care 94 mg/dL (70-110)
[2023-01-22] MEDS: donepezil 5 MG Tablet 10 MG PO (21:41)
[2023-01-22] MEDS: insulin glargine 100 units/1 mL 5 UNIT SUBCUT (22:17)
[2023-01-23] VITALS (33 sets, daily range): BP systolic 115–151; BP diastolic 64–91; PULSE 51–66; RESP 11–18; TEMP 35.8–36.7; O2SAT 91–99
[2023-01-23] MEDS: piperacillin-tazobactam 3.375 GM in sodium chloride 0.9% (plus) 50 ML IV ×2 (03:18→16:01)
[2023-01-23 05:50] LABS: Basophils % 0.3 %; Eosinophils # 0.1 10^3/uL (0.0-0.8); Eosinophils % 1.3 %; Hematocrit 35.7 % (37.0-47.0); Hemoglobin 11.3 g/dL (11.5-15.3); Lymphocytes # 2.4 10^3/uL (0.8-4.8); Lymphocytes % 34.4 %; Mean Corpuscular HGB Conc 31.7 g/dL (30.0-36.0); Mean Corpuscular Hemoglobin 30.5 pg (28.0-34.0); Mean Corpuscular Volume 96.5 fl (81-99); Mean Platelet Volume 10.3 fL (7.4-10.4); Monocytes # 0.6 10^3/uL (0.2-0.9); Monocytes % 9.2 %; Neutrophils % 54.4 %; Nucleated Red Blood Cells % 0 %; Platelet Count 319 10^3/cmm (130-400); Red Cell Distribution Width 14.6 % (12.1-15.1)
[2023-01-23 06:08] LABS: Calcium 7.9 mg/dL (8.5-10.5)
[2023-01-23 06:09] LABS: Alanine Aminotransferase 110 U/L (0-33); Albumin Level 2.7 g/dL (3.5-5.2); Alkaline Phosphatase 340 U/L (35-105); Anion Gap 16.3 (5-19); Aspartate Amino Transferase 166 U/L (0-32); Blood Urea Nitrogen 24 mg/dL (8-23); Carbon Dioxide 25 mmol/L (22-29); Chloride 99 mmol/L (98-107); Globulin 2.9 g/dL (1.3-4.6); Glomerular Filtration Rate 22.1 mL/min (90-130); Glucose 58 mg/dL (65-115); Magnesium 2.1 mg/dL (1.7-2.3); Osmolality Calculated 284 mOsm/kg (285-295); Phosphorus 4.5 mg/dL (2.5-4.5); Potassium 4.3 mmol/L (3.5-5.1); Sodium 136 mmol/L (136-145); Total Bilirubin 0.3 mg/dL (0.15-1.2); Total Protein 5.6 g/dL (6.6-8.7)
[2023-01-23 06:15] LABS: Parathyroid Hormone 148.9 pg/mL (15-65)
[2023-01-23 06:25] LABS: 25 Hydroxy Vitamin D 64 ng/mL (30-100)
--- NOTE | 2023-01-23 06:34 | P.PN_ITS ---
Subjective Subjective: seen and examined. has abd pain. on way to OR for CCYT Medications: Reviewed: Yes Medication Review Details: Current Medications Acetaminophen (Acetaminophen 325 Mg Tablet) 650 mg PO Q6H PRN PRN Reason: Mild/Mod Pain Or Temp >/= 101 Last Admin: 01/21/23 05:17 Dose: 650 mg Albuterol Sulfate (Albuterol 2.5 Mg/3 Ml Neb) 2.5 mg INHALATION ONCE PRN PRN Reason: WHEEZING Aspirin (Aspirin 81 Mg Ec Tablet) 81 mg PO DAILY [facility] Last Admin: 01/22/23 09:47 Dose: 81 mg Clopidogrel Bisulfate (Clopidogrel 75 Mg Tablet) 75 mg PO QAM [facility] Last Admin: 01/23/23 05:01 Dose: Not Given Dextrose (Dextrose 50% Syringe 50 Ml) 50 ml IVP PRN PRN; Protocol PRN Reason: hypoglycemia protocol Dextrose (Dextrose 50% Syringe 50 Ml) 25 ml IVP ONCE PRN; Protocol PRN Reason: hypoglycemia protocol Diphenhydramine HCl (Diphenhydramine 50 Mg/Ml Sdv 1ml) 12.5 mg IVP ONCE PRN PRN Reason: PONV Diphenhydramine HCl (Diphenhydramine 50 Mg/Ml Sdv 1ml) 12.5 mg IVP ONCE PRN PRN Reason: Postop N/V Donepezil HCl (Donepezil 5 Mg Tablet) 10 mg PO BEDTIME [facility] Last Admin: 01/22/23 21:41 Dose: 10 mg Famotidine (Famotidine 20 Mg/2 Ml Inj) 20 mg IVP ONCE PRN PRN Reason: HEARTBURN Fenofibrate (Fenofibrate 145 Mg Tablet) 145 mg PO DAILY [facility] Last Admin: 01/22/23 09:47 Dose: 145 mg Fentanyl (Fentanyl 50 Mcg/Ml Inj 2ml) 50 mcg IVP ONCE PRN PRN Reason: Preop Pain Glucagon (Glucagon 1 Mg/Ml Inj 1 Ml) 1 mg IM ONCE PRN; Protocol PRN Reason: Adult Acute Hypoglycemia Prot. Heparin Sodium (Porcine) (Heparin 5,000 Unit/Ml Inj 1 Ml) 5,000 unit SUBCUT Q12H [facility] Last Admin: 01/22/23 21:41 Dose: 5,000 unit Heparin Sodium (Porcine) (Heparin, Porcine 1,000 Unit/Ml Inj 10 Ml) 0 unit HE PRN PRN PRN Reason: DIALYSIS USE ONLY Last Admin: 01/22/23 15:22 Dose: 10,000 unit Hydromorphone HCl (Hydromorphone 1 Mg/Ml Inj 1 Ml) 0.5 mg IVP ONCE PRN PRN Reason: Phase II postop pain Hydromorphone HCl (Hydromorphone 1 Mg/Ml Inj 1 Ml) 0.5 mg IVP ONCE PRN PRN Reason: For preop pain/anxiety Piperacillin Sod/Tazobactam (Sod 3.375 gm/ Sodium Chloride) 50 mls @ 12.5 mls/hr IV Q12H [facility]; Protocol Last Admin: 01/23/23 03:18 Dose: 12.5 mls/hr Dextrose (D5w) 500 mls @ 100 mls/hr IV ONCE PRN; Protocol PRN Reason: Adult Acute Hypoglycemia Prot Albumin Human (Albumin) 12.5 gm in 50 mls @ 60 mls/hr IV PRN PRN PRN Reason: Hypotension and/or symptomatic Sodium Chloride (Sodium Chloride 0.9%) 1,000 mls @ 0 mls/hr IV .Q0M PRN PRN Reason: hypotension or symptomatic Sodium Chloride (Sodium Chloride 0.9%) 1,000 mls @ 30 mls/hr IV .Q24H [facility] Stop: 01/24/23 06:44 Insulin Glargine (Insulin Glargine 100 Units/1 Ml) 5 unit SUBCUT BID@0900,2100 [facility] Last Admin: 01/22/23 22:17 Dose: 5 unit Insulin Human Lispro (Insulin Lispro 100 Unit/1 Ml) 0 unit SUBCUT TIDWM [facility]; Protocol Last Admin: 01/22/23 17:04 Dose: Not Given Ipratropium [place] (Ipratropium 0.5 Mg/2.5 Ml Neb) 0.5 mg INHALATION ONCE PRN PRN Reason: WHEEZING Levothyroxine Sodium (Levothyroxine 50 Mcg Tablet) 50 mcg PO DAILY [facility] Last Admin: 01/22/23 09:46 Dose: 50 mcg Lidocaine/Epinephrine (Lidocaine-Epi 2% 20 Ml Inj) 20 ml INJECTION ONCE ONE Stop: 01/23/23 07:01 Liothyronine Sodium (Liothyronine 5 Mcg Tablet) 10 mcg PO DAILY [facility] Last Admin: 01/22/23 09:49 Dose: 10 mcg Lorazepam (Lorazepam 0.5 Mg Tablet) 0.5 mg PO TID PRN PRN Reason: ANXIETY Last Admin: 01/22/23 22:19 Dose: 0.5 mg Metoprolol Tartrate (Metoprolol Tartrate 25 Mg Tablet) 50 mg PO BID@0900,2100 [facility] Last Admin: 01/22/23 21:42 Dose: 50 mg Midazolam HCl (Midazolam 1 Mg/Ml Inj 2 Ml) 2 mg IVP ONCE PRN PRN Reason: Preop Anxiety Morphine Sulfate (Morphine 4 Mg/Ml Sdv 1 Ml) 1 mg IVP Q4H PRN PRN Reason: SEVERE PAIN Non-Formulary Medication (Lokelma) 10 gram PO DAILY [facility] Last Admin: 01/22/23 08:15 Dose: Not Given Ondansetron HCl (Ondansetron 2 Mg/Ml Sdv 2 Ml) 4 mg IVP Q8H PRN PRN Reason: vomiting, or N/V if npo Ondansetron HCl (Ondansetron 2 Mg/Ml Sdv 2 Ml) 4 mg IVP ONCE PRN PRN Reason: NAUSEA AND VOMITING Scopolamine (Scopolamine 1.5 Patch) 1 patch TRANSDERMA ONCE PRN PRN Reason: Nausea/ Vomiting Prophylaxis Zolpidem Tartrate (Zolpidem 5 Mg Tablet) 5 mg PO BEDTIME PRN PRN Reason: INSOMNIA Vitals/I&O/Wt Last Vital Signs Temp 97.6 F 01/23/23 04:00 Pulse 66 01/23/23 06:00 Resp 16 01/23/23 04:00 BP 143/89 01/23/23 04:00 Pulse Ox 98 01/23/23 04:00 O2 Del Method Nasal Cannula 01/23/23 04:00 O2 Flow Rate 2.5 01/23/23 04:00 01/22/23 01/22/23 01/23/23 14:59 22:59 06:59 Intake Total 1653 / 1653 50 / 1703 0 / 1703 Output Total 100 / 100 Balance 1653 / 1653 50 / 1703 -100 / 1603 Weight last 48 hrs Weight 44.65 kg Weight 46.266 kg Weight 48.625 kg Physical Exam Narrative: comfortable, NARD vs noted heent- nc/at neck supple lungs cta b/l heart reg abd soft, + tender ext dec b/l leg edema rt ij pc Urinary Catheter Management: Dickson: Cath Placed During This Visit: yes Reason for Continuing Indwelling Catheter: Other Urinary Catheter Date of Insertion: 01/17/23 Urinary Catheter Time of Insertion: 22:15 Data 01/23/23 05:06 01/23/23 05:06 Micro: Microbiology 01/17/23 14:20 Blood Culture - Final Blood NO GROWTH AFTER 5 DAYS 01/17/23 14:20 Blood Culture - Final Blood NO GROWTH AFTER 5 DAYS A&P Assessment and plan (1) End-stage renal disease needing dialysis: 67 yr old 1. ESRD - HD MWF- repeat HD tomoprrow 2. hyperkalemia-improved w/ hd 3.RUQ tender and inc LFTS- for CCY now 4. combined HFr EF and diastolic dysfunction- ef of 20-25% 5. hyponatremia - improved after dialysis 6. anemia- stable hgb 7. when eating- renal diet and phos binders Plan Patient evaluated using audiovisual cart. Time spent 30+ minutes Attestations Medical Necessity Statement*: for CCY now, esrd pt Time Spent in Patient Care: 16 - 35 minutes (>than 50% of time spent in counselling and/or direct pt care on unit) . Coding Level of Care Code Acute Code for Chg Fwd Diagnoses End-stage renal disease needing dialysis N18.6; Z99.2
--- NOTE | 2023-01-23 06:53 | P.PN_ITS ---
Subjective Subjective: Patient seen and examined Vitals/I&O/Wt Last Vital Signs Temp 97.6 F 01/23/23 04:00 Pulse 66 01/23/23 06:00 Resp 16 01/23/23 04:00 BP 143/89 01/23/23 04:00 Pulse Ox 98 01/23/23 04:00 O2 Del Method Nasal Cannula 01/23/23 04:00 O2 Flow Rate 2.5 01/23/23 04:00 01/22/23 01/22/23 01/23/23 14:59 22:59 06:59 Intake Total 1653 / 1653 50 / 1703 0 / 1703 Output Total 100 / 100 Balance 1653 / 1653 50 / 1703 -100 / 1603 Weight last 48 hrs Weight 98 lb 7 oz Weight 102 lb Weight 107 lb 3.2 oz Physical Exam Narrative: General: No acute distress, awake alert and oriented x3 Abdomen: Soft, nondistended, tender to palpation right upper quadrant, positive Nichole's Urinary Catheter Management: Dickson: Cath Placed During This Visit: yes Reason for Continuing Indwelling Catheter: Other Urinary Catheter Date of Insertion: 01/17/23 Urinary Catheter Time of Insertion: 22:15 Data 01/23/23 05:06 01/23/23 05:06 Micro: Microbiology 01/17/23 14:20 Blood Culture - Final Blood NO GROWTH AFTER 5 DAYS 01/17/23 14:20 Blood Culture - Final Blood NO GROWTH AFTER 5 DAYS A&P Assessment and plan (1) Cholecystitis: Plan Cardiac patient who is a very high risk for surgery. She does have cholecystitis however. She has been seen by cardiology Laparoscopic cholecystectomy in the morning The risks and benefits of the procedure, including but not limited to, bleeding, infection, scar, numbness, pain, damage to surrounding structures, damage to common bile duct requiring additional surgery, conversion to an open procedure, were explained to the patient. He is understanding of the risks and wishes to proceed. This particular patient has an increased risk of cardiac event perioperatively. The patient and family are understanding but still wish to proceed. Medical management per hospitalist Attestations Medical Necessity Statement*: per primary Coding Level of Care Code Acute Code for [facility] Diagnoses Cholecystitis K81.9
[2023-01-23] MEDS: lidocaine-epi 2% 20 mL INJ INJECTION (07:38)
--- NOTE | 2023-01-23 08:42 | P.OP_ITS ---
Operative Report Date of procedure: January 23, 2023 Pre-op diagnosis: Cholecystitis Post-op diagnosis: same Procedure done: Laparoscopic cholecystectomy Implants: Surgicel Specimens removed/disposition: Gallbladder Surgeon: Dr. Nick Aponte DO Anesthesia: General Estimated blood loss (mL): 5 Complications: None apparent Brief History: This is a very pleasant 67-year-old female who has longstanding cholecystitis. She is a high risk cardiac patient and has been suffering with gallbladder disease for many months. She was evaluated by medicine, cardiology and surgery and decision was made to proceed with laparoscopic cholecystectomy for quality of life. She is very thin and has aversion to eating due to pain from her gallbladder. This is a low risk procedure in a high risk patient. Due to her cardiac risk, her Plavix was not held. The risk and benefits of the procedure were explained and documented. Patient is understanding that she is a high risk patient. Procedure: Patient was wheeled into the operative room and placed on the OR table in a mauricio pine position. Abdomen was inspected prepped and draped in usual sterile fashion. Time-out was performed and all present were in agreement. A 15 blade scalp was used to make a stab incision in the left upper quadrant and intra- abdominal insufflation was achieved using a Veress needle. After localizing the tissue incisions were made and a 5 millimeter trocar was placed into the umbilicus as well as 2 in the right upper quadrant. A 12 millimeter trocar was placed in the epigastrium. Gallbladder was extremely large and distended. It was grasped and elevated.. Grasping the gallbladder caused perforation and some bile spillage, which made the gallbladder easier to grab. Bile was suctioned. Omentum that was adhered to the gallbladder was taken down bluntly. The triangle of Calot was carefully dissected using blunt dissection and electrocautery until the triangle of Calot clearly identified. The cystic duct was clipped proximally and double clipped distally. The duct was then ligated proximally. The cystic artery was doubly clipped and ligated. The cystic artery was very short. The gallbladder was then removed from the liver bed using electrocautery. The gallbladder was removed from the abdomen using an Endo-Catch bag through the epigastric incision. The liver bed was inspected and tiny areas of punctate bleeding were cauterized. Due to the patient's bleeding risk, from being on Plavix, Surgicel was placed into the liver bed and over the omentum that was attached to the gallbladder. The abdomen was irrigated and suctioned. The 12 port site was closed at the fascia with 0 Vicryl and a Jas-Amara in a [id number] fashion. All ports removed. Skin was washed and dried. Incisions were closed with 3-0 and 4-O Vicryl in a subcuticular interrupted fashion. Skin glue was applied. Patient tolerated the procedure well.
--- NOTE | 2023-01-23 09:19 | SUR.PHASEI ---
0915 Pts blood sugar 32, rechecked at 37. Dr Beyer notified, order for 0.5 amp dextrose. Dextrose given. Will recheck
--- NOTE | 2023-01-23 09:20 | P.ANESASSM_ITS ---
Pre-Anesthetic Assessment Height/Weight: Height 1.57 m Weight 44.65 kg Temp Pulse Resp BP Pulse Ox O2 Del Method O2 Flow Rate 97.2 F L 54 L 16 131/74 97 Nasal Cannula 3 01/23/23 08:36 01/23/23 09:01 01/23/23 09:01 01/23/23 09:01 01/23/23 09:01 01/23/23 09:01 01/23/23 09:01 Operation Date: 01/23/23 07:00 Proposed Procedures p Laparoscopic Cholecystectomy(Not Applicable) - Nick Aponte DO Familial anesthetic complications: none Was Beta Damion taken within 24 hours: N/A Was Clonidine taken within 24 hours: N/A Social No alcohol and No tobacco Exam oriented x 3 and regular rate & rhythm Airway Submandibular: within normal limits Cervical ROM: within normal limits Mallampati: Class II Dentition: false (upper) Comments: Comments: Missing several CV/HEM Anemia, Arrythmia, Coronary Artery Disease (CABG), Congestive Heart Failure, Hypertension, Myocardial Infarction and Peripheral Vascular Disease ?CONCLUSIONS ?Left ventricle is mildly dilated ?LV systolic function is severely reduced with EF of 20-25%. ?Left atrial dilation ?Mild to moderate mitral regurgitation ?Compared to prior echocardiogram from 11/2022, no significant ?changes are seen ?Dean Gilmore MD ?(Electronically Signed) ?Final Date:? ? ? 19 January 2023 Chronic Renal Failure and Chronic Renal Insufficiency GI Gastroesophageal Reflux Disease Metabolic Diabetes Mellitus and Hyperlipidemia Neuropsych AMS Anesthetic Plan ASA status: 4 Anesthesia: General Medications/Allergies Home Medications Medication Instructions Recorded Confirmed Last Taken Type pantoprazole 40 mg tablet,delayed 40 mg PO QAM 08/21/21 01/17/23 12/12/22 History release atorvastatin 40 mg tablet 40 mg PO QPM 03/06/22 01/17/23 12/12/22 History clopidogrel 75 mg tablet 75 mg PO QAM 03/06/22 01/17/23 12/12/22 History levothyroxine 75 mcg tablet 37.5 mcg PO DAILY 03/06/22 01/17/23 12/12/22 History vit B,C-folic ac 800 mcg-zinc 12.5 1 tab PO QAM 03/06/22 01/17/23 12/12/22 History mg-selen-D3 2,000 unit-vit E tablet (RenaPlex-D) hydrocodone 5 mg-acetaminophen 325 1 tab PO Q6H PRN pain 7 days #28 10/17/22 01/17/23 Unknown Rx mg tablet tabs metolazone 5 mg tablet 5 mg PO DAILY 30 minutes before 10/17/22 01/17/23 12/12/22 History torsemide sevelamer carbonate 800 mg tablet 1,600 mg PO TID 10/17/22 01/17/23 12/12/22 History torsemide 100 mg tablet 100 mg PO QAM 10/17/22 01/17/23 12/12/22 History venlafaxine 150 mg 150 mg PO QAM 10/17/22 01/17/23 12/12/22 History capsule,extended release 24 hr insulin glargine 100 unit/mL (3 5 unit SUBCUT BID 11/15/22 01/17/23 12/12/22 His tory mL) subcutaneous pen (Lantus Solostar U-100 Insulin) lorazepam 1 mg tablet 1 mg PO TID PRN Anxiety 11/15/22 01/17/23 Unknown History donepezil 5 mg tablet 10 mg PO BEDTIME #60 tabs 11/18/22 01/17/23 12/12/22 Rx amlodipine 10 mg tablet 10 mg PO BEDTIME 12/13/22 01/17/23 12/12/22 History aspirin 325 mg tablet 325 mg PO BID 12/13/22 01/17/23 12/12/22 History insulin lispro 100 unit/mL See Rx Instructions .Route .COMPLEX 12/13/22 01/17/23 Unknown History subcutaneous pen (Humalog KwikPen (U-100) Insulin) carvedilol 12.5 mg tablet 25 mg PO BID #120 tabs 12/16/22 01/17/23 12/12/22 Rx Allergies Allergy/AdvReac Type Severity Reaction Status Date / Time azithromycin Allergy Unknown Verified 01/17/23 13:50 erythromycin base Allergy Unknown Verified 01/17/23 13:50 mycins Allergy Unknown Uncoded 01/17/23 13:50 Current Medications Generic Name Dose Route Start Last Admin Trade Name Freq PRN Reason Stop Dose Admin Acetaminophen 650 mg 01/17/23 16:52 01/21/23 05:17 Acetaminophen 325 Mg Tablet PO 650 mg Q6H PRN Administration Mild/Mod Pain Or Temp >/= 101 Aspirin 81 mg 01/19/23 09:00 01/22/23 09:47 Aspirin 81 Mg Ec Tablet PO 81 mg DAILY ALYSSA Administration Clopidogrel Bisulfate 75 mg 01/18/23 06:00 01/23/23 05:01 Clopidogrel 75 Mg Tablet PO Not Given QAM ALYSSA Donepezil HCl 10 mg 01/22/23 21:00 01/22/23 21:41 Donepezil 5 Mg Tablet PO 10 mg BEDTIME ALYSSA Administration Fenofibrate 145 mg 01/18/23 09:00 01/22/23 09:47 Fenofibrate 145 Mg Tablet PO 145 mg DAILY ALYSSA Administration Heparin Sodium (Porcine) 5,000 unit 01/17/23 20:00 01/22/23 21:41 Heparin 5,000 Unit/Ml Inj 1 Ml SUBCUT 5,000 unit Q12H ALYSSA Administration Heparin Sodium (Porcine) 0 unit 01/22/23 10:45 01/22/23 15:22 Heparin, Porcine 1,000 Unit/Ml Inj 10 Ml HE 10,000 unit PRN PRN Administration DIALYSIS USE ONLY Piperacillin Sod/Tazobactam 50 mls @ 12.5 mls/hr 01/17/23 22:45 01/23/23 03:1 8 Sod 3.375 gm/ Sodium Chloride IV 12.5 mls/hr Q12H ALYSSA Administration Protocol As Directed Insulin Glargine 5 unit 01/22/23 21:00 01/22/23 22:17 Insulin Glargine 100 Units/1 Ml SUBCUT 5 unit BID@0900,2100 [facility] Administration Insulin Human Lispro 0 unit 01/20/23 12:00 01/22/23 17:04 Insulin Lispro 100 Unit/1 Ml SUBCUT Not Given TIDWM [facility] Protocol Levothyroxine Sodium 50 mcg 01/18/23 09:00 01/22/23 09:46 Levothyroxine 50 Mcg Tablet PO 50 mcg DAILY ALYSSA Administration Liothyronine Sodium 10 mcg 01/18/23 09:00 01/22/23 09:49 Liothyronine 5 Mcg Tablet PO 10 mcg DAILY ALYSSA Administration Lorazepam 0.5 mg 01/19/23 13:06 01/22/23 22:19 Lorazepam 0.5 Mg Tablet PO 0.5 mg TID PRN Administration ANXIETY Metoprolol Tartrate 50 mg 01/21/23 21:00 01/22/23 21:42 Metoprolol Tartrate 25 Mg Tablet PO 50 mg BID@0900,2100 ALYSSA Administration Non-Formulary Medication 10 gram 01/20/23 09:00 01/22/23 08:15 Lokelma PO Not Given DAILY [facility] Anesthesia Medical History Acute on chronic diastolic CHF (congestive heart failure) Echocardiogram 11/30 shows EF of 20% with global LV hypokinesia, RVSP of 40, abnormal diastolic functions CAD in [place] artery Closed fracture of pubic ramus Depression End-stage renal disease needing dialysis ESRD on dialysis Fall Fracture acetabulum-closed Gastroparesis GERD (gastroesophageal reflux disease) Hyperlipidemia Hypertension Hypothyroidism Uncontrolled diabetes mellitus Surgical History S/P CABG (coronary artery bypass graft) Social History Smoking and tobacco status: never smoked Alcohol intake: never Data Anesthesia 01/23/23 05:06 01/23/23 05:06 Short CBC 01/22/23 01/23/23 Range/Units 05:04 05:06 WBC 5.9 7.0 (4.0-10.0) 10^3/uL Hgb 9.5 L 11.3 L (11.5-15.3) g/dL Hct 30.5 L 35.7 L (37.0-47.0) % MCV 96.5 96.5 (81-99) fl Plt Count 263 319 (130-400) 10^3/cmm Neut % (Auto) 72.2 54.4 % Neut # (Auto) 4.23 3.80 (1.8-7.7) 10^3/uL BMP 01/21/23 01/21/23 01/22/23 07:48 12:25 05:04 Sodium 120 L 129 L Cancelled Potassium 5.4 H 5.2 H Cancelled Chloride 89 L 95 L Cancelled Carbon Dioxide 22 24 Cancelled BUN 32 H 35 H Cancelled Creatinine 2.3 H 2.6 H Cancelled Glucose 230 H 133 H Cancelled Calcium 7.7 L 8.1 L Cancelled 01/22/23 01/23/23 07:13 05:06 Sodium 128 L 136 Potassium 5.8 H 4.3 Chloride 94 L 99 Carbon Dioxide 17 L 25 BUN 41 H 24 H Creatinine 3.0 H 2.2 H Glucose 321 H 58 L Calcium 8.0 L 8.0 L Cardiac Enzymes 01/21/23 01/22/23 01/22/23 Range/Units 07:48 05:04 07:13 NT-Pro-B Natriuret Pep > 00057 H Cancelled > 44775 H (0-125) pg/mL Liver Function 01/21/23 01/22/23 01/22/23 Range/Units 07:48 05:04 07:13 Total Bilirubin 0.4 Cancelled 0.4 (0.15-1.2) mg/dL AST 240 H Cancelled 180 H (0-32) U/L ALT 99 H Cancelled 107 H (0-33) U/L Alkaline Phosphatase 397 H Cancelled 312 H (35-105) U/L Albumin 2.7 L Cancelled 2.5 L (3.5-5.2) g/dL 01/23/23 Range/Units 05:06 Total Bilirubin 0.3 (0.15-1.2) mg/dL AST 166 H (0-32) U/L ALT 110 H (0-33) U/L Alkaline Phosphatase 340 H (35-105) U/L Albumin 2.7 L (3.5-5.2) g/dL Coags 01/21/23 01/22/23 01/22/23 07:48 05:04 07:13 C-Reactive Protein 38.5 H Cancelled 32.4 H Microbiology 01/17/23 14:20 Blood Culture - Final Blood NO GROWTH AFTER 5 DAYS 01/17/23 14:20 Blood Culture - Final Blood NO GROWTH AFTER 5 DAYS Cardiac Studies: Echocardiogram 01/19/23
[2023-01-23 10:50] LABS: Glucose Point of Care 96 mg/dL (70-110)
[2023-01-23 11:16] LABS: Glucose Point of Care 128 mg/dL (70-110)
--- NOTE | 2023-01-23 13:37 | P.PN_ITS ---
Subjective Subjective: No acute events overnight. Patient has remained hemodynamically stable and afebrile. Patient underwent cholecystectomy today. Cooperatively with daughter at bedside. Patient is awake and alert. Able to have complete conversation. Asking when can she be discharged. Postoperatively patient is hemodynamically stable and saturating well on 2 L nasal cannula. Vitals/I&O/Wt Last Vital Signs Temp 97.3 F L 01/23/23 10:11 Pulse 54 L 01/23/23 10:11 Resp 16 01/23/23 10:11 BP 118/69 01/23/23 10:11 Pulse Ox 97 01/23/23 10:11 O2 Del Method Nasal Cannula 01/23/23 10:11 O2 Flow Rate 3 01/23/23 11:00 01/22/23 01/23/23 01/23/23 22:59 06:59 14:59 Intake Total 50 / 1703 0 / 1703 150 / 150 Output Total 100 / 100 10 / 10 Balance 50 / 1703 -100 / 1603 140 / 140 Weight last 48 hrs Weight 44.65 kg Weight 46.266 kg Weight 48.625 kg Physical Exam Const: COMMON NORMALS: no acute distress and patient oriented x3 EXAM LIMITATIONS: altered mental status NUTRITIONAL APPEARANCE: cachectic ORIENTATION/CONSCIOUSNESS: Yes awake, Yes oriented to person and Yes confused; not oriented to place and not oriented to time HENMT: COMMON NORMALS: normocephalic HEAD & SCALP: normocephalic Eye: OTHER: Pupils equal reactive to light Neck/C-Spine: COMMON NORMALS: no JVD Lymph: LYMPHATIC: no lymphadenopathy noted Chest: OTHER: Right chest dialysis catheter in place Resp: COMMON NORMALS: normal respiratory effort, No retractions, No use of accessory muscles and clear to auscultation bilaterally AUSCULTATION: clear to auscultation bilaterally Cardio: COMMON NORMALS: no JVD, regular rate, regular rhythm, S1 normal heart sound present and S2 normal heart sound present RATE: regular rate RHYTHM: regular rhythm HEART SOUNDS: S1 normal heart sound present and S2 normal heart sound present GI: COMMON NORMALS: Normal to inspection, nondistended, normoactive bowel sounds present, Soft to palpation and non-tender PALPATION: Yes Soft to palpation OTHER: Right upper quadrant tenderness : COMMON NORMALS: Yes no CVA tenderness BLADDER/KIDNEY EXAM: Yes no CVA tenderness Back/Pelvis: COMMON NORMALS: no CVA tenderness Extremity: COMMON NORMALS: no calf tenderness and no pedal edema Neuro: COMMON NORMALS: patient oriented x3 SENSORIUM/ORIENTATION: Yes oriented to person, No oriented to place and No oriented to time OTHER: Does not follow neurologic testing Psych: COMMON NORMALS: cooperative ATTITUDE: Yes calm and Yes Withdrawn affect present ACTIVITY/MOTOR BEHAVIOR: Yes Avoids eye contact (attititu de/behavior) SPEECH: Yes minimal and Yes slow MOOD & AFFECT: Yes depressed mood and Yes Flat affect present Urinary Catheter Management: Dickson: Cath Placed During This Visit: yes Reason for Continuing Indwelling Catheter: Other Urinary Catheter Date of Insertion: 01/17/23 Urinary Catheter Time of Insertion: 22:15 Data 01/23/23 05:06 01/23/23 05:06 Micro: Microbiology 01/17/23 14:20 Blood Culture - Final Blood NO GROWTH AFTER 5 DAYS 01/17/23 14:20 Blood Culture - Final Blood NO GROWTH AFTER 5 DAYS A&P Assessment and plan (1) Acute cholecystitis: Appreciated on gallbladder ultrasound. Appreciate surgical recommendations. Patient is a high risk candidate for low risk procedure. After prolonged [id number] on multiple occasions patient agreeable for cholecystectomy. Underwent on 01/23. Wound care, diet advancement as per surgical team. Monitor CBC and CMP. Patient will be high risk given her history of end-stage renal disease, ischemic cardiomyopathy with EF of 25%, CAD for low risk procedure of cholecystectomy. For now continue with empiric Zosyn. (2) Gallbladder sludge: (3) Sepsis: Resolved. Keep mean artery pressure 65. Blood cultures so far negative. (4) Ischemic cardiomyopathy: For now compensated. Baseline EF of around 20-25% with left atrial dilatation, mild to moderate MR. Appreciate cardiology recommendations. Continue with aspirin, statin, beta-shanthi. We will try to add low-dose KATHY/ARB. Outpatient documents reviewed. -I reviewed patient's prior medical records patient had a coronary artery bypass graft in August 2021 in [place], postoperatively she did not have any fol low-up -She eventually followed up with pressing machine tender in [facility], and March 21, 2022, she underwent cardiac catheterization and was found to have 5 out of 5 bypass patent, she was noted to have small first marginal 8, and posterior lateral branch had severe disease however given vessel size these are recommended for medical management -As per documentation Dr. Schmidt at [facility], initially recommended proceeding with surgical invention for her gallbladder back in Jul red moderate risk, unfortunately she was found to have bilateral pleural effusions on her preop chest x-ray, mentioned requiring thoracocentesis, and actually had chest tubes placed which were eventually removed -During her previous hospitalization she was seen, and it was recommended for ICD placement however patient declined we will see if she can potentially have a chest vest fitted (5) Acute on chronic diastolic CHF (congestive heart failure): (6) End-stage renal disease needing dialysis: Appreciate nephrology recommendations. Continue with dialysis on schedule. (7) DKA (diabetic ketoacidosis): Resolved. A1c 10.3. History of labile blood sugars. Continue insulin sliding scale at a modified protocol with no insulin for blood sugar of less than 180. Restart home dose of Lantus. Qualifiers: Diabetes mellitus type: type 2 Diabetes mellitus complication detail: without coma Qualified Code(s): E11.10 - Type 2 diabetes mellitus with ketoacidosis without coma (8) High anion gap metabolic acidosis: (9) Lactic acidosis: (10) Acute encephalopathy: (11) Hyperkalemia: (12) Missed dialysis: (13) S/P CABG (coronary artery bypass graft): No active chest pain. Continue with home dose of Plavix, aspirin 81 mg, fenofibrate. (14) Uremia: (15) Uncontrolled diabetes mellitus: (16) Protein calorie malnutrition: (17) Physical deconditioning: Plan Full code. Heparin 5000 every 12 hourly for DVT prophylaxis. Protonix OPD prophylaxis. Discharge plan: Plan to discharge within next 24 to 48 hours after surgical recommendations if patient's hospital stay going forward remains uneventful. Attestations Medical Necessity Statement*: Requires further hospitalization for management of acute cholecystitis postcholecystectomy in a patient with baseline ischemic cardiomyopathy with a EF of 20%, uncontrolled diabetes mellitus with history of labile blood sugars Diagnoses Acute cholecystitis K81.0 Gallbladder sludge K82.8 Sepsis A41.9 Ischemic cardiomyopathy I25.5 Acute on chronic diastolic CHF (congestive heart failure) I50.33 End-stage renal disease needing dialysis N18.6; Z99.2 DKA (diabetic ketoacidosis) E11.10 Diabetes mellitus type: type 2 Diabetes mellitus complication detail: without coma High anion gap metabolic acidosis E87.29 Lactic acidosis E87.20 Acute encephalopathy G93.40 Hyperkalemia E87.5 Missed dialysis S/P CABG (coronary artery bypass graft) Z95.1 Uremia N19 Uncontrolled diabetes mellitus E11.65 Protein calorie malnutrition E46 Physical deconditioning R53.81
--- NOTE | 2023-01-23 14:47 | ANE.PACU2 ---
Inpatient post-anesthesia follow up: Airway intact: Yes Vital signs: Temperature 97.3 F Pulse Rate 54 Respiratory Rate 16 Blood Pressure 118/69 Pulse Oximetry 97 Oxygen Delivery Me thod [Rate & Nasal Cannula Delivery Changed T o] Oxygen Delivery Me thod [ Nasal Cannula Current Rate & Del ramses] Oxygen Delivery Me thod Nasal Cannula Oxygen Flow Rate [ Rate & 2 Delivery Changed T o] Oxygen Flow Rate [ Current Rate 3 & Delivery] Oxygen Flow Rate 3 Fraction of Inspir ed Oxygen Hydration adequate: Yes Nausea and vomiting: No Pain level: 3 Mental status: Baseline
[2023-01-23 15:17] LABS: Hematocrit 30.4 % (37.0-47.0); Hemoglobin 9.7 g/dL (11.5-15.3)
[2023-01-23 15:36] LABS: Alanine Aminotransferase 114 U/L (0-33); Albumin Level 2.6 g/dL (3.5-5.2); Alkaline Phosphatase 281 U/L (35-105); Anion Gap 16.5 (5-19); Aspartate Amino Transferase 174 U/L (0-32); Blood Urea Nitrogen 25 mg/dL (8-23); Calcium 7.7 mg/dL (8.5-10.5); Carbon Dioxide 20 mmol/L (22-29); Chloride 100 mmol/L (98-107); Globulin 2.4 g/dL (1.3-4.6); Glucose 91 mg/dL (65-115); Osmolality Calculated 278 mOsm/kg (285-295); Potassium 4.5 mmol/L (3.5-5.1); Sodium 132 mmol/L (136-145); Total Bilirubin 0.3 mg/dL (0.15-1.2)
--- NOTE | 2023-01-23 16:08 | PM.PN ---
Subjective Subjective: Patient had lap servando today. Feeling well. No chest pain Vitals/I&O/Wt Last Vital Signs Temp 97.2 F L 01/23/23 13:30 Pulse 56 L 01/23/23 13:30 Resp 16 01/23/23 13:30 BP 129/75 01/23/23 13:30 Pulse Ox 99 01/23/23 13:30 O2 Del Method Nasal Cannula 01/23/23 13:30 O2 Flow Rate 3 01/23/23 11:00 01/23/23 01/23/23 01/23/23 06:59 14:59 22:59 Intake Total 0 / 1703 150 / 150 Output Total 100 / 100 10 / 10 Balance -100 / 1603 140 / 140 Weight last 48 hrs Weight 98 lb 7 oz Weight 102 lb Weight 107 lb 3.2 oz Physical Exam Narrative: GENERAL: Patient is alert, awake and oriented x3. [] NECK: No jugular vein distension. [] HEENT: No cyanosis. No icterus. No pallor. [] HEART: Regular S1 and S2. No murmur, rub or gallop. [] LUNGS: Clear to auscultate bilaterally. [] CENTRAL NERVOUS SYSTEM: Grossly nonfocal. [] EXTREMITIES: Lower extremities with no edema Urinary Catheter Management: Dickson: Cath Placed During This Visit: yes Reason for Continuing Indwelling Catheter: Other Urinary Catheter Date of Insertion: 01/17/23 Urinary Catheter Time of Insertion: 22:15 Data 01/24/23 14:52 01/24/23 08:20 Micro: Microbiology 01/17/23 14:20 Blood Culture - Final Blood NO GROWTH AFTER 5 DAYS 01/17/23 14:20 Blood Culture - Final Blood NO GROWTH AFTER 5 DAYS A&P Assessment and plan (1) Cholecystitis: (2) S/P CABG (coronary artery bypass graft): (3) DKA (diabetic ketoacidosis): (4) Pre-operative clearance: Plan Patient had lap servando today. She is feeling well. Has bleeding. Can hold antiplatelet therapies. Continue metoprolol Echo shows unchanged EF and severely reduced LV systolic function. Thank you for involving us with care of this patient. We will continue to follow. Please call with questions. Attestations Medical Necessity Statement*: Care expected to cross 2 midnights. Coding Level of Care Code Acute Code for Chg Fwd Diagnoses Cholecystitis K81.9 S/P CABG (coronary artery bypass graft) Z95.1 DKA (diabetic ketoacidosis) E11.10 Pre-operative clearance Z01.818
[2023-01-23 17:36] LABS: Glucose Point of Care 74 mg/dL (70-110)
--- NOTE | 2023-01-23 19:39 | PC.NURSE ---
During assessment of patient, this nurse noticed bleeding from the surgical site and contacted charge nurse for assistance. A pressure dressing was reapplied. Within 15 minutes that dressing became saturated. This nurse contacted Dr. Aponte via the nailer operator. Fdai came to floor and assessed patient and applied more glue to site and applied another pressure dressing and orderd TXA times 2 to be given within an hour of each other. This nurse went in to give the medication and noticed the most recent dressing had become saturated. Dr. Aponte was contacted and told this nurse to apply a new pressure dressing and cover it with a saline bag to try to hold pressure. Items used were silvercel dressings, 4x4s, foam tape, and to use a bag of saline. This nurse informed oncoming nurse of patient status and together viewed dressing. Dressing was leaking and oncoming nurse took over care.
--- NOTE | 2023-01-23 19:49 | PC.NURSE ---
Addendum entered by Elisha Kirby RN 01/24/23 06:27: SQ Heparin Original Note: Dr. Aponte notified that patient still has bleeding to surgical site. Notified that patient has SQ due at this time. Ordered to hold this dose.
[2023-01-23 20:41] LABS: Glucose Point of Care 68 mg/dL (70-110)
[2023-01-23 21:16] LABS: Hematocrit 29.3 % (37.0-47.0); Hemoglobin 9.4 g/dL (11.5-15.3)
[2023-01-23] MEDS: donepezil 5 MG Tablet 10 MG PO (21:21)
[2023-01-23] MEDS: metoprolol tartrate 25 mg Tablet 50 MG PO (21:21)
[2023-01-23] MEDS: LORazepam 0.5 mg Tablet PO (21:21)
--- NOTE | 2023-01-23 21:38 | PC.NURSE ---
Dr. Aponte ordered to hold Plavix and Heparin.
--- NOTE | 2023-01-23 22:05 | CTR_ITS ---
PROCEDURE INFORMATION: Exam: CT Abdomen And Pelvis With Contrast Exam date and time: 01/23/2023 10:36 PM Age: 67 years old Clinical indication: Other: Bleeding from today's surgical site; Prior surgery; Surgery date: Post-operative (0-2 days); Surgery type: Cholecystectomy today - bleeding from site TECHNIQUE: Imaging protocol: Computed tomography of the abdomen and pelvis with contrast. Radiation optimization: All CT scans at this facility use at least one of these dose optimization techniques: automated exposure control; mA and/or kV adjustment per patient size (includes targeted exams where dose is matched to clinical indication); or iterative reconstruction. Contrast material: OMNI 350; Contrast volume: 45 ml; Contrast route: INTRAVENOUS (IV); REPORTING DATA: Count of CT and Cardiac NM exams in prior 12 months: This patient has received 7 known CTs and 0 known cardiac nuclear medicine studies in the 12 months prior to the current study. COMPARISON: [place] [id number] 01/18/2023 12:03 PM RADIATION DOSE METRICS: Total DLP (mGy-cm): 325.3 FINDINGS: Lungs: Bibasilar left greater than right atelectasis versus infiltrate. Pleural spaces: Moderate right and moderate to large left pleural effusions. Heart: Cardiomegaly. Coronary arteries: Coronary artery atherosclerotic calcifications. Liver: Hepatomegaly. Gallbladder and bile ducts: Postsurgical changes in the gallbladder fossa with fluid and air seen without contrast extravasation seen with certainty to suggest active bleeding by CT. Pancreas: Normal. No ductal dilation. Spleen: 18 mm somewhat wedge-shaped low-density area in the spleen may reflect an infarct, perhaps chronic. Adrenal glands: Normal. No mass. Kidneys and ureters: Bilateral renal cysts, negative for follow-up advised. Stomach and bowel: Small hiatal hernia. Appendix: No evidence of appendicitis. Intraperitoneal space: Moderate to large amount of free air in the abdomen, likely related to provided history of recent surgery. Small to moderate amount of nonspecific fluid throughout the abdomen and pelvis. Vasculature: Diffuse vascular calcifications. Lymph nodes: Unremarkable. No enlarged lymph nodes. Urinary bladder: Dickson catheter in the urinary bladder. Reproductive: Calcified fibroids. Bones/joints: Chronic pubic symphysis along with left superior and inferior pubic rami fractures. T12 vertebral body superior endplate compression fracture without retropulsion of bony fragments appears chronic. Left sacral chronic insufficiency fracture similar to prior exam. Soft tissues: Anasarca suspected. CT/CT abdomen pelvis w con* [id number] IMPRESSION: 1. Moderate to large amount of free air in the abdomen, likely related to provided history of recent surgery. 2. Postsurgical changes in the gallbladder fossa with fluid and air seen without contrast extravasation seen with certainty to suggest active bleeding by CT. 3. Bilateral renal cysts, negative for follow-up advised. 4. Calcified fibroids. 5. Chronic pubic symphysis along with left superior and inferior pubic rami fractures. 6. Diffuse vascular calcifications. 7. T12 vertebral body superior endplate compression fracture without retropulsion of bony fragments appears chronic. 8. Left sacral chronic insufficiency fracture similar to prior exam. 9. Anasarca suspected. 10. Moderate right and moderate to large left pleural effusions. 11. Cardiomegaly. 12. Coronary artery atherosclerotic calcifications. 13. Bibasilar left greater than right atelectasis versus infiltrate. 14. Hepatomegaly. 15. Small to moderate amount of nonspecific fluid throughout the abdomen and pelvis. 16. Dickson catheter in the urinary bladder. 17. 18 mm somewhat wedge-shaped low-density area in the spleen may reflect an infarct, perhaps chronic. 18. Small hiatal hernia. COMMENTS: Consistent with the [employer]'s Incidental Findings Committee white paper (J Am Lalo Radiol 2018): Any incidental renal lesion less than 1 cm or classified as too small to characterize, or any incidental cystic renal lesion characterized as simple-appearing, is likely benign. No follow-up imaging is recommended for these lesions per consensus recommendations based on imaging criteria.
[2023-01-23] MEDS: iohexol 350 mg/mL 500 mL Btl (per mL) IV (22:42)
--- NOTE | 2023-01-23 23:06 | PC.NURSE ---
Patient still bleeding at surgical site. Dr. Aponte to bedside to assess patient and replace dressing to abdomen. Stat CT with contrast of abdomen ordered.
[2023-01-23 23:37] LABS: Glucose Point of Care 72 mg/dL (70-110)
[2023-01-24] VITALS (33 sets, daily range): BP systolic 117–171; BP diastolic 59–82; PULSE 57–100; RESP 16–59; TEMP 36.1–36.9; O2SAT 90–100
[2023-01-24] MEDS: piperacillin-tazobactam 3.375 GM in sodium chloride 0.9% (plus) 50 ML IV ×2 (03:06→15:18)
[2023-01-24 03:08] LABS: Glucose Point of Care 101 mg/dL (70-110)
[2023-01-24 04:55] LABS: Basophils % 0.2 %; Eosinophils % 0.2 %; Hematocrit 28.6 % (37.0-47.0); Hemoglobin 8.6 g/dL (11.5-15.3); Lymphocytes # 1.1 10^3/uL (0.8-4.8); Lymphocytes % 18.5 %; Mean Corpuscular HGB Conc 30.1 g/dL (30.0-36.0); Mean Corpuscular Hemoglobin 30.2 pg (28.0-34.0); Mean Corpuscular Volume 100.4 fl (81-99); Mean Platelet Volume 10.4 fL (7.4-10.4); Monocytes # 0.7 10^3/uL (0.2-0.9); Monocytes % 11.2 %; Neutrophils # 4.22 10^3/uL (1.8-7.7); Neutrophils % 69.4 %; Nucleated Red Blood Cells % 0 %; Platelet Count 264 10^3/cmm (130-400); Red Blood Count 2.85 10^6/uL (4.1-5.3); Red Cell Distribution Width 14.8 % (12.1-15.1); White Blood Count 6.1 10^3/uL (4.0-10.0)
[2023-01-24 05:14] LABS: Alanine Aminotransferase 100 U/L (0-33); Albumin Level 2.2 g/dL (3.5-5.2); Alkaline Phosphatase 256 U/L (35-105); Anion Gap 21.9 (5-19); Aspartate Amino Transferase 131 U/L (0-32); Blood Urea Nitrogen 31 mg/dL (8-23); Calcium 7.8 mg/dL (8.5-10.5); Carbon Dioxide 18 mmol/L (22-29); Chloride 99 mmol/L (98-107); Globulin 2.2 g/dL (1.3-4.6); Glomerular Filtration Rate 17.5 mL/min (90-130); Glucose 221 mg/dL (65-115); Osmolality Calculated 291 mOsm/kg (285-295); Phosphorus 5.8 mg/dL (2.5-4.5); Potassium 4.9 mmol/L (3.5-5.1); Sodium 134 mmol/L (136-145); Total Bilirubin 0.3 mg/dL (0.15-1.2); Total Protein 4.4 g/dL (6.6-8.7)
[2023-01-24 05:41] LABS: Glucose Point of Care 58 mg/dL (70-110)
[2023-01-24 05:41] LABS: Glucose Point of Care 32 mg/dL (70-110)
[2023-01-24 05:41] LABS: Glucose Point of Care 64 mg/dL (70-110)
[2023-01-24 05:41] LABS: Glucose Point of Care 46 mg/dL (70-110)
[2023-01-24 05:41] LABS: Glucose Point of Care 37 mg/dL (70-110)
[2023-01-24 05:41] LABS: Glucose Point of Care 44 mg/dL (70-110)
--- NOTE | 2023-01-24 06:15 | PC.NURSE ---
Patient's abdominal dressing saturated. Dressing reinforced.
[2023-01-24 06:20] LABS: Glucose Point of Care 141 mg/dL (70-110)
--- NOTE | 2023-01-24 06:21 | PC.NURSE ---
Dr. Yarbrough notified of patient taking Metoprolol BID. Ordered to continue with Doubutamine stress test. CDL notified.
--- NOTE | 2023-01-24 07:43 | PM.PN ---
Subjective Subjective: bleeding by cholecystectomy site. has abd pain, weaknss, tenderness. is not esting. had hypoglyemic episode yesterday Medications: Reviewed: Yes Medication Review Details: Current Medications Acetaminophen (Acetaminophen 325 Mg Tablet) 650 mg PO Q6H PRN PRN Reason: Mild/Mod Pain Or Temp >/= 101 Last Admin: 01/21/23 05:17 Dose: 650 mg Hydrocodone Bitart/Acetaminophen (Hydrocodone-Acetaminophen 5-325 Mg Tablet) 1 tab PO Q4H PRN PRN Reason: MODERATE PAIN Aspirin (Aspirin 81 Mg Ec Tablet) 81 mg PO DAILY [facility] Last Admin: 01/22/23 09:47 Dose: 81 mg Clopidogrel Bisulfate (Clopidogrel 75 Mg Tablet) 75 mg PO QAM [facility] Last Admin: 01/23/23 05:01 Dose: Not Given Dextrose (Dextrose 50% Syringe 50 Ml) 50 ml IVP PRN PRN; Protocol PRN Reason: hypoglycemia protocol Dextrose (Dextrose 50% Syringe 50 Ml) 25 ml IVP ONCE PRN; Protocol PRN Reason: hypoglycemia protocol Donepezil HCl (Donepezil 5 Mg Tablet) 10 mg PO BEDTIME [facility] Last Admin: 01/23/23 21:21 Dose: 10 mg Fenofibrate (Fenofibrate 145 Mg Tablet) 145 mg PO DAILY [facility] Last Admin: 01/22/23 09:47 Dose: 145 mg Glucagon (Glucagon 1 Mg/Ml Inj 1 Ml) 1 mg IM ONCE PRN; Protocol PRN Reason: Adult Acute Hypoglycemia Prot. Heparin Sodium (Porcine) (Heparin 5,000 Unit/Ml Inj 1 Ml) 5,000 unit SUBCUT Q12H [facility] Last Admin: 01/23/23 19:49 Dose: Not Given Heparin Sodium (Porcine) (Heparin, Porcine 1,000 Unit/Ml Inj 10 Ml) 0 unit HE PRN PRN PRN Reason: DIALYSIS USE ONLY Last Admin: 01/22/23 15:22 Dose: 10,000 unit Hydromorphone HCl (Hydromorphone 1 Mg/Ml Inj 1 Ml) 0.5 mg IVP Q4H PRN PRN Reason: SEVERE pain Piperacillin Sod/Tazobactam (Sod 3.375 gm/ Sodium Chloride) 50 mls @ 12.5 mls/hr IV Q12H ALYSSA; Protocol Last Infusion: 01/24/23 07:04 Dose: Infused Dextrose (D5w) 500 mls @ 100 mls/hr IV ONCE PRN; Protocol PRN Reason: Adult Acute Hypoglycemia Prot Sodium Chloride (Sodium Chloride 0.9%) 1,000 mls @ 0 mls/hr IV .Q0M PRN PRN Reason: hypotension or symptomatic Albumin Human (Albumin) 12.5 gm in 50 mls @ 60 mls/hr IV PRN PRN PRN Reason: Hypotension and/or symptomatic Insulin Glargine (Insulin Glargine 100 Units/1 Ml) 5 unit SUBCUT BID@0900,2100 [facility] Last Admin: 01/23/23 20:40 Dose: Not Given Insulin Human Lispro (Insulin Lispro 100 Unit/1 Ml) 0 unit SUBCUT TIDWM [facility]; Protocol Last Admin: 01/23/23 17:30 Dose: Not Given Levothyroxine Sodium (Levothyroxine 50 Mcg Tablet) 50 mcg PO DAILY [facility] Last Admin: 01/22/23 09:46 Dose: 50 mcg Liothyronine Sodium (Liothyronine 5 Mcg Tablet) 10 mcg PO DAILY [facility] Last Admin: 01/22/23 09:49 Dose: 10 mcg Lorazepam (Lorazepam 0.5 Mg Tablet) 0.5 mg PO TID PRN PRN Reason: ANXIETY Last Admin: 01/23/23 21:21 Dose: 0.5 mg Metoprolol Tartrate (Metoprolol Tartrate 25 Mg Tablet) 50 mg PO BID@0900,2100 [facility] Last Admin: 01/23/23 21:21 Dose: 50 mg Non-Formulary Medication (Lokelma) 10 gram PO DAILY [facility] Last Admin: 01/22/23 08:15 Dose: Not Given Ondansetron HCl (Ondansetron 2 Mg/Ml Sdv 2 Ml) 4 mg IVP Q6H PRN PRN Reason: NAUSEA AND VOMITING Zolpidem Tartrate (Zolpidem 5 Mg Tablet) 5 mg PO BEDTIME PRN PRN Reason: INSOMNIA Vitals/I&O/Wt Last Vital Signs Temp 97.4 F L 01/24/23 07:33 Pulse 87 01/24/23 07:33 Resp 17 01/24/23 07:33 BP 137/71 01/24/23 07:33 Pulse Ox 97 01/24/23 07:33 O2 Del Method Nasal Cannula 01/24/23 07:33 O2 Flow Rate 3 01/23/23 11:00 01/23/23 01/24/23 01/24/23 22:59 06:59 14:59 Intake Total 270 / 420 50 / 50 Output Total 0 / 10 100 / 110 Balance 270 / 410 -100 / 310 50 / 50 Weight last 48 hrs Weight 44.65 kg Weight 46.3 kg Physical Exam Narrative: uncomfortable, NARD vs noted heent- nc/at neck supple lungs cta b/l heart reg abd soft, + tender by surgical site and bleeding ext dec b/l leg edema rt ij pc Urinary Catheter Management: Dickson: Cath Placed During This Visit: yes Reason for Continuing Indwelling Catheter: Other Urinary Catheter Date of Insertion: 01/17/23 Urinary Catheter Time of Insertion: 22:15 Data 01/24/23 04:33 01/24/23 04:33 A&P Assessment and plan (1) End-stage renal disease needing dialysis: 67 yr old 1. ESRD - HD MWF- repeat HD today 2. hyperkalemia-improved w/ hd 3.RUQ tender and inc LFTS- s/p CCY on 01/23/23 4. combined HFr EF and diastolic dysfunction- ef of 20-25% 5. hyponatremia - improved after dialysis 6. anemia- monitor hgb as bleeding s/p ccy 7. when eating- renal diet and phos binders Plan Patient evaluated using audiovisual cart. Time spent 30+ minutes Attestations Medical Necessity Statement*: bleeding s/p ccy, esrd Time Spent in Patient Care: 16 - 35 minutes (>than 50% of time spent in counselling and/or direct pt care on unit). Coding Level of Care Code Acute Code for [facility] Diagnoses End-stage renal disease needing dialysis N18.6; Z99.2
[2023-01-24 08:19] LABS: Glucose Point of Care 166 mg/dL (70-110)
--- NOTE | 2023-01-24 08:22 | PC.HD ---
Patient normally receives a loading dose and maintenance doses of heparin during her dialysis treatments; however, due to patient's post-surgical status and surgical site bleeding, heparin was not administered per law enforcement director.
[2023-01-24 08:48] LABS: INR 1.06 (0.8-1.2)
[2023-01-24 08:53] LABS: Glucose 251 mg/dL (65-115)
[2023-01-24 11:42] LABS: Glucose Point of Care 169 mg/dL (70-110)
--- NOTE | 2023-01-24 11:55 | PM.PN ---
Subjective Subjective: Patient seen and examined. She had significant bleeding from her epigastric incision postoperatively yesterday. I was finally able to get this under control with mesh Dermabond, Surgicel and a pressure dressing. CT abdomen and pelvis did not show active contrast extravasation. She reports that she is feeling well this morning and is tolerating a diet Vitals/I&O/Wt Last Vital Signs Temp 97.8 F 01/24/23 16:26 Pulse 77 01/24/23 16:26 Resp 18 01/24/23 16:26 BP 145/70 01/24/23 16:26 Pulse Ox 100 01/24/23 16:26 O2 Del Method Nasal Cannula 01/24/23 16:00 O2 Flow Rate 2.5 01/24/23 16:00 01/24/23 01/24/23 01/24/23 06:59 14:59 22:59 Intake Total 1442 / 1442 600 / 2042 Output Total 100 / 110 2105 / 2105 Balance -100 / 310 -663 / -663 600 / -63 Weight last 48 hrs Weight 102 lb 8.239 oz Weight 98 lb 7 oz Physical Exam Narrative: General: No acute distress, awake alert and oriented x3 Abdomen: Soft, nondistended, appropriately tender to palpation, no guarding rebound or masses Incisions intact without erythema or exudate Urinary Catheter Management: Dickson: Cath Placed During This Visit: yes Reason for Continuing Indwelling Catheter: Other Urinary Catheter Date of Insertion: 01/17/23 Urinary Catheter Time of Insertion: 22:15 Data 01/24/23 14:52 01/24/23 08:20 A&P Assessment and plan (1) Cholecystitis: Plan Postop day #1 status post laparoscopic cholecystectomy Monitor H&H Regular diet Medical management per primary Attestations Medical Necessity Statement*: Per primary Coding Level of Care Code Acute Code for [facility] Diagnoses Cholecystitis K81.9
[2023-01-24] MEDS: aspirin 81 mg EC Tablet PO (12:19)
[2023-01-24] MEDS: liothyronine 5 mcg Tablet 10 MCG PO (12:19)
[2023-01-24] MEDS: fenofibrate 145 mg Tablet PO (12:20)
[2023-01-24] MEDS: sodium chloride 0.9% (100 ml) 100 ML 50 ML (12:20)
[2023-01-24] MEDS: levothyroxine 50 mcg Tablet PO (12:20)
--- NOTE | 2023-01-24 13:00 | PC.HD ---
Patient dropped her SBP into the 60s shortly after treatment initiation. She was given prn albumin x2, UF goal was lowered to minimum rate of 300 mL/hour, and 200 mL NSS bolus was administered. Machine temperature was lowered from 36.0C to 35.0C per hypotension protocols as well. Patient's BP remained soft throughout the remainder of the treatment (around 100 SBP). MAPs remained >65 after albumin administration. Fluid removal goal was not met. UF goal was 2000 mL. 1500 mL was removed. [employer] is aware. In addition, per remote sensing technologist, no heparin to be administered during treatment as patient is post-surgical and is bleeding from her surgical site. Heparin was held. No clotting of circuit noted.
[2023-01-24 14:14] LABS: Hemoglobin 6.4 g/dL (11.5-15.3)
--- NOTE | 2023-01-24 14:40 | PC.SOCIAL ---
Imm update Imm updated with patient at bedside. copy of page 2 provided. copy in chart initialed, dated and timed.
[2023-01-24 15:00] LABS: Hemoglobin 6.2 g/dL (11.5-15.3)
[2023-01-24 16:25] LABS: Glucose Point of Care 331 mg/dL (70-110)
--- NOTE | 2023-01-24 16:52 | P.PN_ITS ---
Subjective Subjective: Seen multiple times in the day. No acute events overnight. Patient has remained hemodynamically stable and afebrile. Patient underwent cholecystectomy today. Cooperatively with daughter at bedside. Patient is awake and alert. Able to have complete conversation. Asking when can she be discharged. Postoperatively patient is hemodynamically stable and saturating well on 2 L nasal cannula. Vitals/I&O/Wt Last Vital Signs Temp 97.8 F 01/24/23 16:26 Pulse 77 01/24/23 16:26 Resp 18 01/24/23 16:26 BP 145/70 01/24/23 16:26 Pulse Ox 100 01/24/23 16:26 O2 Del Method Nasal Cannula 01/24/23 16:00 O2 Flow Rate 2.5 01/24/23 16:00 01/24/23 01/24/23 01/24/23 06:59 14:59 22:59 Intake Total 1442 / 1442 0 / 1442 Output Total 100 / 110 2105 / 2105 Balance -100 / 310 -663 / -663 0 / -663 Weight last 48 hrs Weight 46.5 kg Weight 44.65 kg Physical Exam Const: COMMON NORMALS: no acute distress and patient oriented x3 EXAM LIMITATIONS: altered mental status NUTRITIONAL APPEARANCE: cachectic ORIENTATION/CONSCIOUSNESS: Yes awake, Yes oriented to person and Yes confused; not oriented to place and not oriented to time HENMT: COMMON NORMALS: normocephalic HEAD & SCALP: normocephalic Eye: OTHER: Pupils equal reactive to light Neck/C-Spine: COMMON NORMALS: no JVD Lymph: LYMPHATIC: no lymphadenopathy noted Chest: OTHER: Right chest dialysis catheter in place Resp: COMMON NORMALS: normal respiratory effort, No retractions, No use of accessory muscles and clear to auscultation bilaterally AUSCULTATION: clear to auscultation bilaterally Cardio: COMMON NORMALS: no JVD, regular rate, regular rhythm, S1 normal heart sound present and S2 normal heart sound present RATE: regular rate RHYTHM: regular rhythm HEART SOUNDS: S1 normal heart sound present and S2 normal heart sound present GI: COMMON NORMALS: Normal to inspection, nondistended, normoactive bowel sounds present, Soft to palpation and non-tender PALPATION: Yes Soft to palpation OTHER: Right upper quadrant tenderness : COMMON NORMALS: Yes no CVA tenderness BLADDER/KIDNEY EXAM: Yes no CVA tenderness Back/Pelvis: COMMON NORMALS: no CVA tenderness Extremity: COMMON NORMALS: no calf tenderness and no pedal edema Neuro: COMMON NORMALS: patient oriented x3 SENSORIUM/ORIENTATION: Yes oriented to person, No oriented to place and No oriented to time OTHER: Does not follow neurologic testing Psych: COMMON NORMALS: cooperative ATTITUDE: Yes calm and Yes Withdrawn affect present ACTIVITY/MOTOR BEHAVIOR: Yes Avoids eye contact (attititude/behavior) SPEECH: Yes minimal and Yes slow MOOD & AFFECT: Yes depressed mood and Yes Flat affect present Urinary Catheter Management: Dickson: Cath Placed During This Visit: yes Reason for Continuing Indwelling Catheter: Other Urinary Catheter Date of Insertion: 01/17/23 Urinary Catheter Time of Insertion: 22:15 Data 01/25/23 04:56 01/25/23 04:56 A&P Assessment and plan (1) Acute blood loss as cause of postoperative anemia: Hemoglobin down to 6.2. Having superficial incision site bleeding requiring multiple doses of tranxemic acid and pressure banding. Check CTA to rule out intra-abdominal bleed. Monitor hemoglobin every 8 hourly. Transfused 2 units of blood to maintain hemoglobin over 8. Continue with clear liquid diet for now. Check INR. If blood pressure low can transfuse 2 units of FFP. Hold off on transfusing platelet as patient is at high risk of further ACS given her history of ischemic cardiomyopathy and recurrent episodes of non-ST elevation ME in last few months. Holding off on anticoagulation and Plavix for now. Appreciate surgical recommendations. (2) Acute cholecystitis: Postcholecystectomy day 1. After prolonged [id number] on multiple occasions patient agreeable for cholecystectomy. Wound care, diet advancement as per surgical team. Monitor CBC and CMP. Patient will be high risk given her history of end-stage renal disease, ischemic cardiomyopathy with EF of 25%, CAD for low risk procedure of cholecystectomy. For now continue with empiric Zosyn. (3) Gallbladder sludge: (4) Sepsis: Resolved. Keep mean artery pressure 65. Blood cultures so far negative. (5) Ischemic cardiomyopathy: For now compensated. Baseline EF of around 20-25% with left atrial dilatation, mild to moderate MR. Appreciate cardiology recommendations. Continue with aspirin, statin, beta-shanthi. We will try to add low-dose KATHY/ARB. Outpatient documents reviewed. -I reviewed patient's prior medical records patient had a coronary artery bypass graft in August 2021 in [place], postoperatively she did not have any follow-up -She eventually followed up with forensic psychologist in [facility], and March 21, 2022, she underwent cardiac catheterization and was found to have 5 out of 5 bypass patent, she was noted to have small first marginal 8, and posterior lateral branch had severe disease however given vessel size these are recommended for medical management -As per documentation Dr. Schmidt at [facility], initially recommended proceeding with surgical invention for her gallbladder back in July moderate risk, unfortunately she was found to have bilateral pleural effusions on her preop chest x-ray, mentioned requiring thoracocentesis, and actually had chest tubes placed which were eventually removed -During her previous hospitalization she was seen, and it was recommended for ICD placement however patient declined we will see if she can potentially have a chest vest fitted (6) Acute on chronic diastolic CHF (congestive heart failure): (7) End-stage renal disease needing dialysis: Appreciate nephrology recommendations. Continue with dialysis on schedule. (8) DKA (diabetic ketoacidosis): Resolved. A1c 10.3. History of labile blood sugars. Continue insulin sliding scale at a modified protocol with no insulin for blood sugar of less than 180. Restart home dose of Lantus. Qualifiers: Diabetes mellitus complication detail: without coma Diabetes mellitus type: type 2 Qualified Code(s): E11.10 - Type 2 diabetes mellitus with k etoacidosis without coma (9) Uncontrolled diabetes mellitus: (10) Missed dialysis: (11) High anion gap metabolic acidosis: (12) Hyperkalemia: (13) Uremia: (14) Lactic acidosis: (15) Acute encephalopathy: (16) S/P CABG (coronary artery bypass graft): No active chest pain. Continue with home dose of Plavix, aspirin 81 mg, fenofibrate. (17) Protein calorie malnutrition: (18) Physical deconditioning: Plan Full code. Hold off on heparin 5000 every 12 hourly for DVT prophylaxis. Protonix OPD prophylaxis. If hemoglobin falls further or any hemodynamic instability low threshold to transfer to ICU. Care discussed in detail with patient and patient's daughter at bedside. Discharge plan: Plan to discharge within next 24 to 48 hours after surgical recommendations if patient's hospital stay going forward remains uneventful. Attestations Medical Necessity Statement*: Requires further hospitalization for management of acute blood loss anemia postoperatively, postcholecystectomy for cholecystitis with gallbladder sludge and the patient with severe ischemic cardiomyopathy, end-stage renal disease on hemodialysis Coding Level of Care Code Critical Care >/= 30 minutes Critical care time (in minutes): 90 The high probability of a clinically significant, sudden or life threatening deterioration, as referenced in this documentation, required my full and direct attention, intervention and personal management. The critical care time shown is in addition to time spent performing any reported separately billable procedures and includes the following: [x] Data and vital sign review and interpretation [x ] Patient assessment, examination and intervention [x] Medication orders and management [x] Patient/Family updates as able [x] Care Coordination and Documentation. Diagnoses Acute blood loss as cause of postoperative anemia D62 Acute cholecystitis K81.0 Gallbladder sludge K82.8 Sepsis A41.9 Ischemic cardiomyopathy I25.5 Acute on chronic diastolic CHF (congestive heart failure) I50.33 End-stage renal disease needing dialysis N18.6; Z99.2 DKA (diabetic ketoacidosis) E11.10 Diabetes mellitus complication detail: without coma Diabetes mellitus type: type 2 Uncontrolled diabetes mellitus E11.65 Missed dialysis High anion gap metabolic acidosis E87.29 Hyperkalemia E87.5 Uremia N19 Lactic acidosis E87.20 Acute encephalopathy G93.40 S/P CABG (coronary artery bypass graft) Z95.1 Protein calorie malnutrition E46 Physical deconditioning R53.81
--- NOTE | 2023-01-24 16:53 | PC.NURSE ---
Patient resting in bed, VSS, no c/o pain or discomfort, ready for real food . Patient is AAOx4, calm and cooperative and asking questions about her care. Daughter was updated via phone. Dressing from change in AM still clean, dry and intact. Patient received 2 FFP and is currently receiving 1 of 2 units PRBC. No needs at this time. Room clean and clutter free with call light in reach.
--- NOTE | 2023-01-24 17:43 | PM.PN ---
Subjective Subjective: Patient has significant bleeding and hgb dropped to 6.2. Receiving blood transfusions. Vitals/I&O/Wt Last Vital Signs Temp 97.6 F 01/24/23 17:26 Pulse 83 01/24/23 17:26 Resp 18 01/24/23 17:26 BP 153/76 01/24/23 17:26 Pulse Ox 100 01/24/23 17:26 O2 Del Method Nasal Cannula 01/24/23 16:00 O2 Flow Rate 2.5 01/24/23 16:00 01/24/23 01/24/23 01/24/23 06:59 14:59 22:59 Intake Total 1442 / 1442 600 / 2042 Output Total 100 / 110 2105 / 2105 Balance -100 / 310 -663 / -663 600 / -63 Weight last 48 hrs Weight 102 lb 8.239 oz Weight 98 lb 7 oz Physical Exam Narrative: GENERAL: Patient is alert, awake and oriented x3. [] NECK: No jugular vein distension. [] HEENT: No cyanosis. No icterus. No pallor. [] HEART: Regular S1 and S2. No murmur, rub or gallop. [] LUNGS: Clear to auscultate bilaterally. [] CENTRAL NERVOUS SYSTEM: Grossly nonfocal. [] EXTREMITIES: Lower extremities with no edema Urinary Catheter Management: Dickson: Cath Placed During This Visit: yes Reason for Continuing Indwelling Catheter: Other Urinary Catheter Date of Insertion: 01/17/23 Urinary Catheter Time of Insertion: 22:15 Data 01/25/23 04:56 01/25/23 04:56 A&P Assessment and plan (1) Cholecystitis: (2) S/P CABG (coronary artery bypass graft): (3) DKA (diabetic ketoacidosis): (4) Pre-operative clearance: Plan Patient had lap cholecystectomy yesterday. Has significant bleeding and anemia requiring blood transfusions. Can hold antiplatelet agents. Continue metoprolol Echo shows unchanged EF and severely reduced LV systolic function. Thank you for involving us with care of this patient. We will continue to follow. Please call with questions. Attestations Medical Necessity Statement*: Care expected to cross 2 midnights. Coding Level of Care Code Acute Code for [facility] Diagnoses Cholecystitis K81.9 S/P CABG (coronary artery bypass graft) Z95.1 DKA (diabetic ketoacidosis) E11.10 Pre-operative clearance Z01.818
--- NOTE | 2023-01-24 17:48 | CTR_ITS ---
PROCEDURE INFORMATION: Exam: CTA Abdomen and Pelvis With Contrast Exam date and time: 01/24/2023 6:07 PM Age: 67 years old Clinical indication: Pain; Other: Post servando bleed; Prior surgery; Surgery date: Post-operative (0-2 days); Additional info: Post servando bleeding, R/O intra abdominal bleed TECHNIQUE: Imaging protocol: Computed tomographic angiography of the abdomen and pelvis with contrast. 3D rendering (Not supervised by radiologist): MIP and/or 3D reconstructed images were created by the technologist. Radiation optimization: All CT scans at this facility use at least one of these dose optimization techniques: automated exposure control; mA and/or kV adjustment per patient size (includes targeted exams where dose is matched to clinical indication); or iterative reconstruction. Contrast material: OMNI 350; Contrast volume: 100 ml; Contrast route: INTRAVENOUS (IV); REPORTING DATA: Count of CT and Cardiac NM exams in prior 12 months: This patient has received 8 known CTs and 0 known cardiac nuclear medicine studies in the 12 months prior to the current study. COMPARISON: CT angio chest w abd pel w con 11/15/2022 6:03 PM RADIATION DOSE METRICS: Total DLP (mGy-cm): 316.75 FINDINGS: Lungs: Left lower lobe collapse. Atelectasis in the right lung base. Pleural spaces: Stable large left and medium right size pleural effusions. Aorta: No aortic aneurysm. No aortic dissection. Celiac trunk and mesenteric arteries: Mild-moderate stenoses in the proximal celiac and superior mesenteric arteries. Renal arteries: Moderate stenoses in the proximal renal arteries. Right iliac arteries: No occlusion or significant stenosis. Right femoral/popliteal arteries: Severe stenosis in the right common femoral artery. Left iliac arteries: Severe stenosis in the left internal iliac artery. Left femoral/popliteal arteries: Severe stenosis in the proximal left superficial femoral artery. Liver: No mass. Gallbladder and bile ducts: Cholecystectomy. Bile ducts are normal. Pancreas: Atrophic pancreas. Spleen: Inhomogenous physiologic perfusion of the spleen. Adrenal glands: Unremarkable. No mass. Kidneys and ureters: Left renal cyst, Hounsfield units less than 20. No imaging follow-up recommended. Inhomogeneous perfusion both kidneys. No hydronephrosis. Stomach and bowel: No active GI hemorrhage or active contrast extravasation identified. Medication capsule in the stomach. Appendix: No evidence of appendicitis. Intraperitoneal space: Stable pneumoperitoneum, consistent with recent abdominal surgery. Diffuse mesenteric edema. Lymph nodes: Unremarkable. No enlarged lymph nodes. Urinary bladder: Dickson catheter in a decompressed urinary bladder. Reproductive: Calcified fibroids in the uterus. 3.0 cm right ovarian cyst, Hounsfield units less than 20. Normal left ovary. Bones/joints: Degenerative changes of the spine. Mild chronic T12 compression fracture. Soft tissues: Stable soft tissue gas in the right abdominal wall, consistent with recent surgery. Large amount of packing along the anterior abdominal wall. Possible open wound or wound dehiscence. Diffuse body wall edema. CT/CT angio abdomen pelvis 20234 IMPRESSION: 1. No evidence for active GI hemorrhage. 2. Stable pneumoperitoneum, consistent with recent abdominal surgery. 3. Anasarca including pleural effusions, body wall edema, and mesenteric edema. 4. Cholecystectomy. Stable postoperative fluid and gas bubbles in the gallbladder fossa. 5. 3.0 cm right ovarian cyst. No further imaging is recommended. (Reference: Timmy) References: Timmy et al. Management of Incidental Adnexal Findings on CT and MRI: A White Paper of the ACR Incidental Findings Committee, J Am Lalo Radiol. 2020 Nov;17(2):248-254.
[2023-01-24] MEDS: insulin lispro 100 unit/1 mL SUBCUT (18:06)
[2023-01-24] MEDS: iohexol 350 mg/mL 500 mL Btl (per mL) IV (18:26)
[2023-01-24] MEDS: metoprolol tartrate 25 mg Tablet 50 MG PO (20:37)
[2023-01-24] MEDS: donepezil 5 MG Tablet 10 MG PO (20:37)
[2023-01-24 20:47] LABS: Glucose Point of Care 446 mg/dL (70-110)
[2023-01-24] MEDS: FUROsemide 10 mg/mL SDV 4mL 40 MG IVP (21:24)
[2023-01-24 21:47] LABS: Glucose Point of Care 460 mg/dL (70-110)
[2023-01-24] MEDS: insulin lispro 100 unit/1 mL 8 UNIT SUBCUT (21:53)
[2023-01-24 23:18] LABS: Glucose Point of Care 430 mg/dL (70-110)
[2023-01-25] VITALS (10 sets, daily range): BP systolic 142–158; BP diastolic 80–92; PULSE 66–97; RESP 18–19; TEMP 36.1–36.9; O2SAT 92–100
[2023-01-25] MEDS: LORazepam 0.5 mg Tablet PO (00:29)
[2023-01-25] MEDS: piperacillin-tazobactam 3.375 GM in sodium chloride 0.9% (plus) 50 ML IV ×2 (02:49→15:57)
[2023-01-25 03:01] LABS: Hemoglobin 10.3 g/dL (11.5-15.3)
[2023-01-25 05:28] LABS: Basophils % 0.2 %; Eosinophils % 0.5 %; Hematocrit 31.6 % (37.0-47.0); Hemoglobin 10.6 g/dL (11.5-15.3); Lymphocytes # 1.8 10^3/uL (0.8-4.8); Lymphocytes % 29.1 %; Mean Corpuscular HGB Conc 33.5 g/dL (30.0-36.0); Mean Corpuscular Volume 92.4 fl (81-99); Mean Platelet Volume 10.2 fL (7.4-10.4); Monocytes % 16.6 %; Neutrophils # 3.25 10^3/uL (1.8-7.7); Neutrophils % 52.8 %; Nucleated Red Blood Cells # 0.1 /100WBC; Nucleated Red Blood Cells % 1.1 %; Platelet Count 193 10^3/cmm (130-400); Red Blood Count 3.42 10^6/uL (4.1-5.3); Red Cell Distribution Width 14.9 % (12.1-15.1); White Blood Count 6.2 10^3/uL (4.0-10.0)
[2023-01-25 05:42] LABS: Alanine Aminotransferase 94 U/L (0-33); Albumin Level 2.9 g/dL (3.5-5.2); Alkaline Phosphatase 242 U/L (35-105); Anion Gap 17.5 (5-19); Aspartate Amino Transferase 118 U/L (0-32); Blood Urea Nitrogen 20 mg/dL (8-23); Calcium 7.9 mg/dL (8.5-10.5); Carbon Dioxide 24 mmol/L (22-29); Chloride 100 mmol/L (98-107); Globulin 2.3 g/dL (1.3-4.6); Glomerular Filtration Rate 26.2 mL/min (90-130); Glucose 195 mg/dL (65-115); Magnesium 1.8 mg/dL (1.7-2.3); Osmolality Calculated 294 mOsm/kg (285-295); Phosphorus 3.5 mg/dL (2.5-4.5); Potassium 3.5 mmol/L (3.5-5.1); Sodium 138 mmol/L (136-145); Total Bilirubin 0.5 mg/dL (0.15-1.2); Total Protein 5.2 g/dL (6.6-8.7)
[2023-01-25 06:04] LABS: Glucose Point of Care 187 mg/dL (70-110)
--- NOTE | 2023-01-25 08:38 | P.PN_ITS ---
Subjective Subjective: is eating. s/p prbc and ffp transfusions yesterday. she feels better. she is passing gas. denies sob. Medications: Reviewed: Yes Medication Review Details: Current Medications Acetaminophen (Acetaminophen 325 Mg Tablet) 650 mg PO Q6H PRN PRN Reason: Mild/Mod Pain Or Temp >/= 101 Last Admin: 01/21/23 05:17 Dose: 650 mg Hydrocodone Bitart/Acetaminophen (Hydrocodone-Acetaminophen 5-325 Mg Tablet) 1 tab PO Q4H PRN PRN Reason: MODERATE PAIN Aspirin (Aspirin 81 Mg Ec Tablet) 81 mg PO DAILY [facility] Last Admin: 01/24/23 12:19 Dose: 81 mg Clopidogrel Bisulfate (Clopidogrel 75 Mg Tablet) 75 mg PO QAM [facility] Last Admin: 01/23/23 05:01 Dose: Not Given Dextrose (Dextrose 50% Syringe 50 Ml) 50 ml IVP PRN PRN; Protocol PRN Reason: hypoglycemia protocol Dextrose (Dextrose 50% Syringe 50 Ml) 25 ml IVP ONCE PRN; Protocol PRN Reason: hypoglycemia protocol Donepezil HCl (Donepezil 5 Mg Tablet) 10 mg PO BEDTIME [facility] Last Admin: 01/24/23 20:37 Dose: 10 mg Fenofibrate (Fenofibrate 145 Mg Tablet) 145 mg PO DAILY [facility] Last Admin: 01/24/23 12:20 Dose: 145 mg Glucagon (Glucagon 1 Mg/Ml Inj 1 Ml) 1 mg IM ONCE PRN; Protocol PRN Reason: Adult Acute Hypoglycemia Prot. Heparin Sodium (Porcine) (Heparin 5,000 Unit/Ml Inj 1 Ml) 5,000 unit SUBCUT Q12H [facility] Last Admin: 01/23/23 19:49 Dose: Not Given Heparin Sodium (Porcine) (Heparin, Porcine 1,000 Unit/Ml Inj 10 Ml) 0 unit HE PRN PRN PRN Reason: DIALYSIS USE ONLY Last Admin: 01/22/23 15:22 Dose: 10,000 unit Hydromorphone HCl (Hydromorphone 1 Mg/Ml Inj 1 Ml) 0.5 mg IVP Q4H PRN PRN Reason: SEVERE pain Piperacillin Sod/Tazobactam (Sod 3.375 gm/ Sodium Chloride) 50 mls @ 12.5 mls/hr IV Q12H ALYSSA; Protocol Last Admin: 01/25/23 02:49 Dose: 12.5 mls/hr Dextrose (D5w) 500 mls @ 100 mls/hr IV ONCE PRN; Protocol PRN Reason: Adult Acute Hypoglycemia Prot Sodium Chloride (Sodium Chloride 0.9%) 1,000 mls @ 0 mls/hr IV .Q0M PRN PRN Reason: hypotension or symptomatic Albumin Human (Albumin) 12.5 gm in 50 mls @ 60 mls/hr IV PRN PRN PRN Reason: Hypotension and/or symptomatic Sodium Chloride (Sodium Chloride 0.9% (100 Ml)) 100 mls @ 0 mls/hr IV .Q0M [facility] Insulin Human Lispro (Insulin Lispro 100 Unit/1 Ml) 0 unit SUBCUT TIDWM [facility]; Protocol Last Admin: 01/24/23 18:06 Dose: 10 unit Levothyroxine Sodium (Levothyroxine 50 Mcg Tablet) 50 mcg PO DAILY [facility] Last Admin: 01/24/23 12:20 Dose: 50 mcg Liothyronine Sodium (Liothyronine 5 Mcg Tablet) 10 mcg PO DAILY [facility] Last Admin: 01/24/23 12:19 Dose: 10 mcg Lorazepam (Lorazepam 0.5 Mg Tablet) 0.5 mg PO TID PRN PRN Reason: ANXIETY Last Admin: 01/25/23 00:29 Dose: 0.5 mg Metoprolol Tartrate (Metoprolol Tartrate 25 Mg Tablet) 50 mg PO BID@0900,2100 [facility] Last Admin: 01/24/23 20:37 Dose: 50 mg Non-Formulary Medication (Lokelma) 10 gram PO DAILY [facility] Last Admin: 01/24/23 12:20 Dose: Not Given Ondansetron HCl (Ondansetron 2 Mg/Ml Sdv 2 Ml) 4 mg IVP Q6H PRN PRN Reason: NAUSEA AND VOMITING Zolpidem Tartrate (Zolpidem 5 Mg Tablet) 5 mg PO BEDTIME PRN PRN Reason: INSOMNIA Vitals/I&O/Wt Last Vital Signs Temp 97 F L 01/25/23 08:00 Pulse 73 01/25/23 08:21 Resp 19 H 01/25/23 08:00 BP 142/92 01/25/23 08:00 Pulse Ox 97 01/25/23 08:21 O2 Del Method Nasal Cannula 01/25/23 08:21 O2 Flow Rate 3 01/24/23 20:14 01/24/23 01/25/23 01/25/23 22:59 06:59 14:59 Intake Total 1480 / 2922 Output Total 100 / 2205 Balance 1480 / 817 -100 / 717 Weight last 48 hrs Weight 46.04 kg Weight 46.5 kg Physical Exam Narrative: comfortable, NARD vs noted heent- nc/at neck supple lungs cta b/l heart reg abd soft, less tender by surgical site and bleeding ext dec b/l leg edema rt ij pc neuro a,a, o x 2+ Urinary Catheter Management: Dickson: Cath Placed During This Visit: yes Reason for Continuing Indwelling Catheter: Other Urinary Catheter Date of Insertion: 01/17/23 Urinary Catheter Time of Insertion: 22:15 Data 01/25/23 04:56 01/25/23 04:56 A&P Assessment and plan (1) End-stage renal disease needing dialysis: 67 yr old 1. ESRD - HD MWF- repeat HD tomorrow 2. hyperkalemia-improved w/ hd 3.RUQ tender and inc LFTS- s/p CCY on 01/23/23. she bled post op and required multiple blood products -monitor hgb -Q if to hold her asa 4. combined HFr EF and diastolic dysfunction- ef of 20-25% 5. hyponatremia - improved after dialysis 6. anemia- monitor hgb as bled -give epo 7. renal diet and phos binders seen and examined w/ RN. informed consent for telehealth obtained from the pt Plan Patient evaluated using audiovisual cart. Time spent 30+ minutes Attestations Medical Necessity Statement*: post-op bleed, esrd Time Spent in Patient Care: 16 - 35 minutes (>than 50% of time spent in counselling and/or direct pt care on unit) . Coding Level of Care Code Acute Code for Chg Fwd Diagnoses End-stage renal disease needing dialysis N18.6; Z99.2
[2023-01-25] MEDS: fenofibrate 145 mg Tablet PO (08:54)
[2023-01-25] MEDS: aspirin 81 mg EC Tablet PO (08:54)
[2023-01-25] MEDS: levothyroxine 50 mcg Tablet PO (08:54)
[2023-01-25] MEDS: insulin lispro 100 unit/1 mL SUBCUT (08:54)
[2023-01-25] MEDS: metoprolol tartrate 25 mg Tablet 50 MG PO ×2 (08:54→21:12)
--- NOTE | 2023-01-25 09:58 | USCV_ITS ---
Cony Temple Age: 67 Gender: F : 1955 Exam Date: 01/25/2023 10:35 Ordering Phys: Geovanni Fleming MD Technologist: Papa Min Exam Location: [facility] [place]_ Indication: DVT PROCEDURES: Venous duplex imaging was performed in bilateral lower extremities. The following venous structures were evaluated: common femoral vein, profunda vein, proximal portion of the greater saphenous vein, superficial femoral vein, and the popliteal vein. In addition, the posterior tibial and peroneal trunk were evaluated. Serial compression, augmentation maneuvers, and spectral Doppler flow evaluation were performed. FINDINGS: There is DVT noted in the right common femoral vein extending into the profunda. Thrombus is slightly mobile. All other veins appear to be free of thrombus at this time. CONCLUSIONS Acute DVT right femoral vein into the deep profunda. Physician notified by veneer measurer at time of exam. Dr. Agata Alexander DO (Electronically Signed) Final Date: 25 January 2023 12:32 S
[2023-01-25] MEDS: liothyronine 5 mcg Tablet 10 MCG PO (11:09)
--- NOTE | 2023-01-25 11:09 | XACV_ITS ---
Ht: 157 cm Wt: 46 kg BSA: 1.41 m2 Any Known Allergies: Other Gender: Female : 1955 Exam Type: Invasive Peripheral Vascular Procedure(s): Procedure Description: Peripheral vascular Intervention Procedure Description: PV IVC Filter Placement Exam Priority: Routine Abdominal Interventional Findings INDICATION: Patient underwent laparoscopic cholecystectomy 2 days back. After that has been having significant bleeding requiring multiple transfusions. She had a CTA performed today to assess for bleeding and was found to have right sided pulmonary embolism. Lower extremity Doppler ultrasound show right common femoral vein DVT. Given patient's need for transfusions as recent as last night, pulmonary embolism and presence of proximal DVT, interventional cardiology called for placement of IVC filter. Risks and benefits of the procedure been discussed with the patient. Plan will be to retrieve the filter once bleeding has resolved and patient is able to take and tolerate anticoagulation. We will arrange for outpatient follow-up.. Procedure detail: We obtained access in left common femoral vein. Using pigtail catheter, we obtained IVC venogram. Renal veins were identified. An accessory renal vein was noted on the left side. Cook celect IVC filter was deployed under fluoroscopic guidance. Pressure was held to obtain hemostasis. Patient left the Regulatory Scientist in a stable condition.. Conclusions Successful placement of IVC filter. Recommendations Transfer back to room. If patient able to tolerate anticoagulation, we will plan on retrieval of filter in 3-6 months. Access Site Site: Left Femoral vein Sheath Size: 6 Fr Hemost... Method: Manual Compression Hemost... Success: Successful Procedure Details Findings Procedure Consent Obtained. Pre-Procedure Time Out. Identified patient by full name and date of as verbalized by the patient/guarantor. Does the consent match the physician's order: Yes. Accurate & Complete Informed Consent: Yes. Inpatient/Outpatient History & Physical on Chart: Yes. If H&P is completed, is and addenduem needed: No. Relevant Radiology Images available: yes. The risks, benefits, and alternatives of sedation and/or procedure were discussed by physician. The patient agrees to continue. Procedure started. Current diagnosis: DVT. PERRLA. Strong, equal hand swing saw operator bilaterally. Lungs clear x 5 lobes. IV Site on Arrival: Triple lumen PICC line to the right upper arm. IV Fluids: 0.9% NaCl at KVO. 0 mL infused prior to skilled laborer. Oxygen started at 2liters/min via nasal canula. bilateral groins was prepped with chloroprep then draped in the usual sterile fashion. Physician notified. Equipment: 6F - Femoral. Cardiac Cath Pack. ACIST Manifold Kit Model BT 2000. Heparinized Saline (2 units/mL), 1000 mL bag. Kit, Micropuncture. Patient's family unavailable. Physician arrived. Physician scrubbed in. Immediate Pre-Procedure Time Out. Correct Patient: Yes; Correct Procedure: Yes; Correct Site: Yes; Correct Patient Position: Yes; Correct Supplies: Yes; Dried Flammable Prep: Yes; Blood Products Available: N/A;. Lidocaine 1% infiltrated to the left groin. Baseline sample Acquired. HR: 94 BPM. Venous access obtained with a micropuncture set. A 6 albanian Angled Pig catheter in over wire. Aortogram performed in AP @ 10 mL/second for a total of 30 mL. Pigtail out over the wire. 6fr sheath out over the wire. IVC filter kit sheath in over the wire. Wire out. IVC filter inserted and deployed. Lot # [id number]. Exp. 2025-11-10. Dr. Morseubbed out. A Manual Compression was successful obtaining hemostatsis at the Left Femoral vein insertion site. Sheath(s) removed and manual pressure held until hemostasis was achieved. Sterile 4x4 and Op-site applied to the puncture site. No oozing or hematoma noted. Post sheath removal instructions were given and the patient verbalized understanding. Post Procedure: bilateral dorsalis pedis pulse Doppled. Post Procedure: bilateral posterior tibial pulse Doppled. PERRLA. Strong, equal hand swing saw operator bilaterally. No VTE prophylaxis required. Medication's Wasted: Lidocaine 1% = 2 mL. Medication's Wasted: Heparin = 1000 Units. Medication's Wasted: Other = Versed 1 mg. Medication's Wasted: Other = Fentanyl 75 mcg. Total IV fluids: 28 mL. Post-op diagnosis: S/P IVC filter insertion. Complications: none. Estimated blood loss: 5mL-10mL. Responsiveness - Normal response to verbal stimuli; alert and oriented, PERRLA. Airway - Unaffected, no intervention required; spontaneous ventilation. Circulation: W/N/L, pulses unchanged. Nausea/Vomiting: No. Procedure completed. Patient transferred by bed to [facility]. Vital chart was stopped. Procedure Medications Start: 12:08 PM Stop: 12:08 PM Medication: Fentanyl Amount: 25 mcg Route: I.V. Start: 12:09 PM Stop: 12:09 PM Medication: Versed Amount: 1 mg Route: I.V. I, the attending physician, have reviewed and verified all procedure medications. Yes, all medications given per verbal order History/Risk Factors Hypertension: Yes Dyslipidemia: Yes Peripheral Arterial Disease (PAD): No Obesity: No Renal Disease: No Tobacco Use: Never Prior Interventions PCI: No CABG: No Valve Surgery: No Report Signatures Finalized by Dean Gilmore MD on 02/04/2023 01:59 PM
--- NOTE | 2023-01-25 11:14 | PM.PN ---
Subjective Subjective: Patient found to have DVT of right common femoral vein and right sided PE. Underwent successful placement of IVC filter as has been having bleeding requiring blood transfusion. Vitals/I&O/Wt Last Vital Signs Temp 97 F L 01/25/23 08:00 Pulse 73 01/25/23 08:21 Resp 19 H 01/25/23 08:00 BP 142/92 01/25/23 08:00 Pulse Ox 97 01/25/23 08:21 O2 Del Method Nasal Cannula 01/25/23 08:21 O2 Flow Rate 3 01/25/23 08:00 01/24/23 01/25/23 01/25/23 22:59 06:59 14:59 Intake Total 1480 / 2922 100 / 100 Output Total 100 / 2205 Balance 1480 / 817 -100 / 717 100 / 100 Weight last 48 hrs Weight 101 lb 8 oz Weight 102 lb 8.239 oz Physical Exam Narrative: GENERAL: Patient is alert, awake and oriented x3. [] NECK: No jugular vein distension. [] HEENT: No cyanosis. No icterus. No pallor. [] HEART: Regular S1 and S2. No murmur, rub or gallop. [] LUNGS: Clear to auscultate bilaterally. [] CENTRAL NERVOUS SYSTEM: Grossly nonfocal. [] EXTREMITIES: Lower extremities with no edema Urinary Catheter Management: Dickson: Cath Placed During This Visit: yes Reason for Continuing Indwelling Catheter: Other Urinary Catheter Date of Insertion: 01/17/23 Urinary Catheter Time of Insertion: 22:15 Data 01/25/23 04:56 01/25/23 04:56 A&P Assessment and plan (1) Cholecystitis: (2) S/P CABG (coronary artery bypass graft): (3) DKA (diabetic ketoacidosis): (4) Pre-operative clearance: (5) Dvt femoral (deep venous thrombosis): (6) Pulmonary embolism: Plan Patient found to have right lower extremity DVT and right sided PE. Given post op bleeding requiring blood transfusion, medicine team requested placement of IVC filter as anticoagulation can not be started. Successful placement of IVC filter. We will plan to retrieve it in 3-6 months depending on patient's ability to resume anticoagulation. Close outpatient cardiology follow up. Continue metoprolol Thank you for involving us with care of this patient. We will sign off. Please call with questions. Attestations Medical Necessity Statement*: Care expected to cross 2 midnights. Coding Level of Care Code Acute Code for Chg Fwd Diagnoses Cholecystitis K81.9 S/P CABG (coronary artery bypass graft) Z95.1 DKA (diabetic ketoacidosis) E11.10 Pre-operative clearance Z01.818 Dvt femoral (deep venous thrombosis) I82.419 Pulmonary embolism I26.99
[2023-01-25 11:18] LABS: Glucose Point of Care 96 mg/dL (70-110)
--- NOTE | 2023-01-25 12:00 | W.PM.OPSUD ---
Surgery/Procedure H&P Update DATE OF PROCEDURE: January 25, 2023 DATE H&P PERFORMED: 01/20/23 H&P UPDATE INFORMATION: I have reviewed H&P completed within last 30 days, I have examined patient prior to procedure and Changes to prior documentation as noted here CHANGES TO PREVIOUS DOCUMENTATION: Patient underwent laparoscopic cholecystectomy 2 days back. After that has been having significant bleeding requiring multiple transfusions. She had a CTA performed today to assess for bleeding and was found to have right sided pulmonary embolism. Lower extremity Doppler ultrasound show right common femoral vein DVT. Given patient's need for transfusions as recent as last night, pulmonary embolism and presence of proximal DVT, interventional cardiology called for placement of IVC filter. Risks and benefits of the procedure been discussed with the patient. Plan will be to retrieve the filter once bleeding has resolved and patient is able to take and tolerate anticoagulation. We will arrange for outpatient follow-up. PREOP DIAGNOSIS: Bleeding/ DVT/ Pulmonary embolism PRIMARY INDICATION FOR PROCEDURE: Bleeding/ DVT/ Pulmonary embolism PLANNED PROCEDURE: Operation Date: 01/25/23 07:00 Proposed Procedures IVC filter placement - Dean Gilmore MD PATIENT REASSESSED PRIOR TO SEDATION, WITH NO CHANGE NOTED: Yes PHYSICAL EXAM: alert, oriented x 3, clear to auscultation bilaterally and regular rate & rhythm AIRWAY EVAL/ANESTHESIA PLAN: normal airway, ASA IV, Local Anesthesia, Risks, benefits & alternatives of sedation and/or procedure discussed and Patient agrees to continue as planned ADDITIONAL INFORMATION: Moderate sedation
--- NOTE | 2023-01-25 12:38 | PM.PROC ---
Procedure Note: Date of procedure: 01/25/23 Pre-procedure diagnosis: Bleeding/DVT/ Pulmonary embolism Post-procedure diagnosis: same Procedure: IVC filter placement: We obtained access in left common femoral vein. Using pigtail catheter, we obtained IVC venogram. Renal veins were identified. Cook celect IVC filter was deployed under fluoroscopic guidance. Pressure was held to obtain hemostasis. Patient left the Vocal Music Teacher in a stable condition. Performing Provider: Dean Gilmore Control Systems Specialist: Misti Lawrence Estimated blood loss (mL): 5 Complications: None Pathology: none sent Condition: stable Disposition: floor Coding Level of Care Code Acute Code for Chg Fwd
--- NOTE | 2023-01-25 12:40 | P.PN_ITS ---
Subjective Subjective: No acute events overnight. Patient remains on 2 L. Awake and alert. More jovial today. Able to have complete conversation. No further bleeding from the surgical site. Still has pressure banding. No further soakage. Vitals/I&O/Wt Last Vital Signs Temp 97 F L 01/25/23 08:00 Pulse 73 01/25/23 08:21 Resp 19 H 01/25/23 08:00 BP 142/92 01/25/23 08:00 Pulse Ox 97 01/25/23 08:21 O2 Del Method Nasal Cannula 01/25/23 08:21 O2 Flow Rate 3 01/25/23 08:00 01/24/23 01/25/23 01/25/23 22:59 06:59 14:59 Intake Total 1480 / 2922 100 / 100 Output Total 100 / 2205 Balance 1480 / 817 -100 / 717 100 / 100 Weight last 48 hrs Weight 46.04 kg Weight 46.5 kg Physical Exam Const: COMMON NORMALS: no acute distress and patient oriented x3 EXAM LIMITATIONS: altered mental status NUTRITIONAL APPEARANCE: cachectic ORIENTATION/CONSCIOUSNESS: Yes awake, Yes oriented to person and Yes confused; not oriented to place and not oriented to time HENMT: COMMON NORMALS: normocephalic HEAD & SCALP: normocephalic Eye: OTHER: Pupils equal reactive to light Neck/C-Spine: COMMON NORMALS: no JVD Lymph: LYMPHATIC: no lymphadenopathy noted Chest: OTHER: Right chest dialysis catheter in place Resp: COMMON NORMALS: normal respiratory effort, No retractions, No use of accessory muscles and clear to auscultation bilaterally AUSCULTATION: clear to auscultation bilaterally Cardio: COMMON NORMALS: no JVD, regular rate, regular rhythm, S1 normal heart sound present and S2 normal heart sound present RATE: regular rate RHYTHM: regular rhythm HEART SOUNDS: S1 normal heart sound present and S2 normal h eart sound present GI: COMMON NORMALS: Normal to inspection, nondistended, normoactive bowel sounds present, Soft to palpation and non-tender PALPATION: Yes Soft to palpation OTHER: Right upper quadrant tenderness : COMMON NORMALS: Yes no CVA tenderness BLADDER/KIDNEY EXAM: Yes no CVA tenderness Back/Pelvis: COMMON NORMALS: no CVA tenderness Extremity: COMMON NORMALS: no calf tenderness and no pedal edema Neuro: COMMON NORMALS: patient oriented x3 SENSORIUM/ORIENTATION: Yes oriented to person, No oriented to place and No oriented to time OTHER: Does not follow neurologic testing Psych: COMMON NORMALS: cooperative ATTITUDE: Yes calm and Yes Withdrawn affect present ACTIVITY/MOTOR BEHAVIOR: Yes Avoids eye contact (attititude/be havior) SPEECH: Yes minimal and Yes slow MOOD & AFFECT: Yes depressed mood and Yes Flat affect present Urinary Catheter Management: Dickson: Cath Placed During This Visit: yes Reason for Continuing Indwelling Catheter: Other Urinary Catheter Date of Insertion: 01/17/23 Urinary Catheter Time of Insertion: 22:15 Data 01/25/23 04:56 01/25/23 04:56 A&P Assessment and plan (1) Pulmonary embolism: Seen on CTA done on 01/24. No right heart strain on CT scan. Patient's oxygen supplementation has remained stable. Underwent lower limb Doppler which is consistent for right femoral DVT. Given ongoing acute anemia requiring blood transfusion cannot put her on anticoagulation. Discussed in detail with cardiology and patient. Plan for IVC filter placement. Patient is agreeable. (2) Dvt femoral (deep venous thrombosis): (3) Acute blood loss as cause of postoperative anemia: Appreciate CT results. No active abdominal bleed. Superficial wound. Seems to be controlled as well. Post 2 unit of blood transfusion. Hemoglobin up to 10. Overall received unit of blood transfusion 2 unit of FFP. Hold off on anticoagulation or Plavix for now. Advance to renal diabetic dialysis diet. (4) S/P cholecystectomy: (5) Acute cholecystitis: Postcholecystectomy day 3. After prolonged [id number] on multiple occasions patient agreeable for cholecystectomy. Wound care, diet advancement as per surgical team. Monitor CBC and CMP. Patient will be high risk given her history of end-stage renal disease, ischemic cardiomyopathy with EF of 25%, CAD for low risk procedure of cholecystectomy. For now continue with empiric Zosyn. (6) Gallbladder sludge: (7) Sepsis: Resolved. Keep mean artery pressure 65. Blood cultures so far negative. (8) Ischemic cardiomyopathy: For now compensated. Baseline EF of around 20-25% with left atrial dilatation, mild to moderate MR. Appreciate cardiology recommendations. Continue with aspirin, statin, beta-shanthi. We will try to add low-dose KATHY/ARB. Outpatient documents reviewed. -I reviewed patient's prior medical records patient had a coronary artery bypass graft in August 2021 in [place], postoperatively she did not have any follow-up -She eventually followed up with prepress operator in [facility], and March 21, 2022, she underwent cardiac catheterization and was found to have 5 out of 5 bypass patent, she was noted to have small first marginal 8, and posterior lateral branch had severe disease however given vessel size these are recommended for medical management -As per documentation Dr. Schmidt at [facility], initially recommended proceeding with surgical invention for her gallbladder back in July moderate risk, unfortunately she was found to have bilateral pleural effusions on her preop chest x-ray, mentioned requiring thoracocentesis, and actually had chest tubes placed which were eventually removed -During her previous hospitalization she was seen, and it was recommended for ICD placement however patient declined we will see if she can potentially have a chest vest fitted (9) Acute on chronic diastolic CHF (congestive heart failure): (10) End-stage renal disease needing dialysis: Appreciate nephrology recommendations. Continue with dialysis on schedule. (11) DKA (diabetic ketoacidosis): Resolved. A1c 10.3. History of labile blood sugars. Continue insulin sliding scale at a modified protocol with no insulin for blood sugar of less than 180. Restart home dose of Lantus. Qualifiers: Diabetes mellitus type: type 2 Diabetes mellitus complication detail: without coma Qualified Code(s): E11.10 - Type 2 diabetes mellitus with ketoacidosis without coma (12) Uncontrolled diabetes mellitus: (13) Missed dialysis: (14) High anion gap metabolic acidosis: (15) Hyperkalemia: (16) Uremia: (17) Lactic acidosis: (18) Acute encephalopathy: (19) S/P CABG (coronary artery bypass graft): No active chest pain. Continue with home dose of Plavix, aspirin 81 mg, fenofibrate. (20) Protein calorie malnutrition: (21) Physical deconditioning: Plan Full code. Hold off on heparin 5000 every 12 hourly for DVT prophylaxis. Protonix OPD prophylaxis. Plan for the day: Appreciate CTA and lower limb Doppler results. Plan for IVC filter placement with cardiology. Patient and patient's daughter agreeable. Monitor blood pressures and blood sugar. Blood pressure is better. If continues to remain on the higher side can restart some of home dose of antihypertensive. Restart Lantus 5 units every morning. Continue sliding scale. Start on renal diabetic dialysis diet. Remove Dickson. Discharge plan: Plan to discharge within next 24 to 48 hours after surgical recommendations if patient's hospital stay going forward remains uneventful. Attestations Medical Necessity Statement*: Requires further hospitalization for management of postoperative blood loss anemia, cholecystectomy, new PE with lower limb DVT requiring IVC filter in a patient with ischemic cardiomyopathy with a EF of 20?25 %, end-stage renal disease on hemodialysis Diagnoses Pulmonary embolism I26.99 Dvt femoral (deep venous thrombosis) I82.419 Acute blood loss as cause of postoperative anemia D62 S/P cholecystectomy Z90.49 Acute cholecystitis K81.0 Gallbladder sludge K82.8 Sepsis A41.9 Ischemic cardiomyopathy I25.5 Acute on chronic diastolic CHF (congestive heart failure) I50.33 End-stage renal disease needing dialysis N18.6; Z99.2 DKA (diabetic ketoacidosis) E11.10 Diabetes mellitus type: type 2 Diabetes mellitus complication detail: without coma Uncontrolled diabetes mellitus E11.65 Missed dialysis High anion gap metabolic acidosis E87.29 Hyperkalemia E87.5 Uremia N19 Lactic acidosis E87.20 Acute encephalopathy G93.40 S/P CABG (coronary artery bypass graft) Z95.1 Protein calorie malnutrition E46 Physical deconditioning R53.81
[2023-01-25 17:44] LABS: Glucose Point of Care 58 mg/dL (70-110)
[2023-01-25 18:05] LABS: Glucose Point of Care 60 mg/dL (70-110)
[2023-01-25 19:20] LABS: Glucose Point of Care 77 mg/dL (70-110)
[2023-01-25 20:32] LABS: Glucose Point of Care 39 mg/dL (70-110)
[2023-01-25 21:02] LABS: Glucose Point of Care 68 mg/dL (70-110)
[2023-01-25 21:07] LABS: Glucose Point of Care 73 mg/dL (70-110)
[2023-01-25] MEDS: donepezil 5 MG Tablet 10 MG PO (21:12)
[2023-01-25 22:05] LABS: Glucose Point of Care 51 mg/dL (70-110)
--- NOTE | 2023-01-25 22:20 | PC.NURSE ---
blood sugar consistently low, was 39, given protocol for alert pt, rechecked, 71, rechecked again and is was 53, Dr. Johnson notified, instructed to give amp D50 and recheck BS in an hour
[2023-01-25 23:52] LABS: Glucose Point of Care 296 mg/dL (70-110)
[2023-01-26] VITALS (8 sets, daily range): BP systolic 138–159; BP diastolic 90–109; PULSE 64–90; RESP 12–30; TEMP 36.2–36.5; O2SAT 96–100
[2023-01-26 01:09] LABS: Glucose Point of Care 402 mg/dL (70-110)
[2023-01-26] MEDS: piperacillin-tazobactam 3.375 GM in sodium chloride 0.9% (plus) 50 ML IV (02:06)
[2023-01-26 03:13] LABS: Glucose Point of Care 450 mg/dL (70-110)
[2023-01-26 05:11] LABS: Basophils % 0.3 %; Eosinophils % 0.1 %; Hematocrit 38.1 % (37.0-47.0); Hemoglobin 12.2 g/dL (11.5-15.3); Lymphocytes # 1.1 10^3/uL (0.8-4.8); Lymphocytes % 14.7 %; Mean Corpuscular Hemoglobin 30.4 pg (28.0-34.0); Mean Platelet Volume 10.1 fL (7.4-10.4); Monocytes # 0.8 10^3/uL (0.2-0.9); Monocytes % 10.7 %; Neutrophils # 5.44 10^3/uL (1.8-7.7); Neutrophils % 73.5 %; Nucleated Red Blood Cells # 0.1 /100WBC; Nucleated Red Blood Cells % 1.2 %; Platelet Count 218 10^3/cmm (130-400); Red Blood Count 4.01 10^6/uL (4.1-5.3); White Blood Count 7.4 10^3/uL (4.0-10.0)
[2023-01-26 05:36] LABS: Alanine Aminotransferase 83 U/L (0-33); Albumin Level 2.7 g/dL (3.5-5.2); Alkaline Phosphatase 238 U/L (35-105); Anion Gap 22.3 (5-19); Aspartate Amino Transferase 66 U/L (0-32); Blood Urea Nitrogen 32 mg/dL (8-23); Calcium 8.1 mg/dL (8.5-10.5); Carbon Dioxide 20 mmol/L (22-29); Chloride 96 mmol/L (98-107); Globulin 2.3 g/dL (1.3-4.6); Glucose 459 mg/dL (65-115); Osmolality Calculated 305 mOsm/kg (285-295); Phosphorus 4.6 mg/dL (2.5-4.5); Potassium 4.3 mmol/L (3.5-5.1); Sodium 134 mmol/L (136-145); Total Bilirubin 0.4 mg/dL (0.15-1.2)
[2023-01-26 05:37] LABS: Creatinine Clr Calc Pharmacy 17.5406
[2023-01-26] MEDS: insulin glargine 100 units/1 mL 5 UNIT SUBCUT (06:21)
[2023-01-26 06:58] LABS: Glucose Point of Care 463 mg/dL (70-110)
[2023-01-26 07:07] LABS: Glucose Point of Care 448 mg/dL (70-110)
[2023-01-26 08:47] LABS: Glucose Point of Care 478 mg/dL (70-110)
[2023-01-26] MEDS: insulin lispro 100 unit/1 mL SUBCUT (08:57)
[2023-01-26] MEDS: aspirin 81 mg EC Tablet PO (08:58)
[2023-01-26] MEDS: levothyroxine 50 mcg Tablet PO (08:58)
[2023-01-26] MEDS: metoprolol tartrate 25 mg Tablet 50 MG PO (08:58)
[2023-01-26] MEDS: fenofibrate 145 mg Tablet PO (08:58)
--- NOTE | 2023-01-26 09:39 | PM.DCS ---
Discharge Providers Date of Admission: 01/17/23 16:18 Date of Discharge: January 26, 2023 Attending Provider at Admission: Sunday Johnson MD Attending Provider at Discharge: Geovanni Salvador MD Primary Care Provider: Zenon De Los Santos MD Diagnoses at Discharge Discharge Diagnosis (1) Cholecystitis: Status: Acute (2) S/P CABG (coronary artery bypass graft): Status: Acute (3) DKA (diabetic ketoacidosis): Status: Acute (4) Pre-operative clearance: Status: Acute (5) Dvt femoral (deep venous thrombosis): Status: Acute (6) Pulmonary embolism: Status: Acute Reason for Visit Reason for Visit: HIGH BLOOD SUGAR Brief History: Cony Temple is a 67 year old female with a past history of CABG, history of chronic respiratory failure, history of hypercapnia, history of NSTEMI, history of CAD, high for thyroidism, history of end-stage renal disease on dialysis, history of insulin-dependent type 2 diabetes mellitus, EF of 40%, who presents [facility] due to alteration of mentation.? Patient's awake, does not respond to her name, opens her eyes, but falls back asleep, she is hypothermic on admission her temp was 94.5, blood pressure 108/60, pulse 64 respiratory 15, 100% on room air.? Pupils equal round reactive to light, she withdraws from pain, maintaining her airway.? According to ER provider patient missed dialysis yesterday because she was not feeling well.? No family members at bedside.? Patient was found to have DKA, with blood sugars over 500, anion gap of 41.9, bicarb of 8, potassium of lactic acid of 5.9, pH 7.17, ketones positive, hospitalist team was called for admission.? Currently on a Jose hugger, Hospital Course Hospital Course Patient was admitted to the ICU for further evaluation and management of diabetic ketoacidosis, lactic acidosis and hyperkalemia. On admission there was concern for sepsis for which she was started on broad-spectrum antibiotics. She underwent emergent dialysis given concerns for lactic acidosis and hyperkalemia. She was started on insulin drip for DKA as per the protocol. There were concerns of sepsis from cholecystitis for which she started on broad-spectrum antibiotics. Surgery was consulted. Gradually patient improved and wants DKA resolved she was transitioned over to the floors. Surgery recommended patient to undergo cholecystectomy. As per patient and patient's daughter she was advised cholecystectomy as an outpatient as well for which she has been pondering for the last 4 to 5 months given her poor cardiac baseline condition. Eventually after multiple goals of care discussions and patient going back and forth between agreeing and disagreeing of the procedure she underwent cholecystectomy on 01/23 after cardiology clearance. Postprocedure patient developed bleeding from superficial laparoscopic insertion site. Intra-abdominal bleed was ruled out with CTA. Patient had extensive blood loss and hemoglobin went down as low as 6.2 requiring total 3 units of blood transfusion along with 2 FFP's. CTA also showed subsegmental right-sided PE without right heart strain. Lower limb Dopplers were done which is concerning for DVT. Given recent blood loss anemia patient could not be started on full dose anticoagulation hence underwent IVC filter placement on 01/25. Eventually patient is being discharged in hemodynamically stable condition with advised to hold off on Plavix for next 1 week. Her dose of levothyroxine has been increased to 50 mcg daily. Her dose of metoprolol has been changed to 50 mg twice daily. During hospitalization multiple antihypertensives including amlodipine and carvedilol were withheld. Her home dose of torsemide and metolazone are out. She is to follow-up with a primary care provider within next 1 week and with Yovana Bolivar/nurse practitioner in cardiology next 1 week. Physical Exam Const: COMMON NORMALS: no acute distress and patient oriented x3 EXAM LIMITATIONS: altered mental status NUTRITIONAL APPEARANCE: cachectic ORIENTATION/CONSCIOUSNESS: Yes awake, Yes oriented to person and Yes confused; not oriented to place and not oriented to time HENMT: COMMON NORMALS: normocephalic HEAD & SCALP: normocephalic Eye: OTHER: Pupils equal reactive to light Neck/C-Spine: COMMON NORMALS: no JVD Lymph: LYMPHATIC: no lymphadenopathy noted Chest: OTHER: Right chest dialysis catheter in place Resp: COMMON NORMALS: normal respiratory effort, No retractions, No use of accessory muscles and clear to auscultation bilaterally AUSCULTATION: clear to auscultation bilaterally Cardio: COMMON NORMALS: no JVD, regular rate, regular rhythm, S1 normal heart sound present and S2 normal heart sound present RATE: regular rate RHYTHM: regular rhythm HEART SOUNDS: S1 normal heart sound present and S2 normal heart sound present GI: COMMON NORMALS: Normal to inspection, nondistended, normoactive bowel sounds present, Soft to palpation and non-tender PALPATION: Yes Soft to palpation OTHER: Right upper quadrant tenderness : COMMON NORMALS: Yes no CVA tenderness BLADDER/KIDNEY EXAM: Yes no CVA tenderness Back/Pelvis: COMMON NORMALS: no CVA tenderness Extremity: COMMON NORMALS: no calf tenderness and no pedal edema Neuro: COMMON NORMALS: patient oriented x3 SENSORIUM/ORIENTATION: Yes oriented to person, No oriented to place and No oriented to time OTHER: Does not follow neurologic testing Psych: COMMON NORMALS: cooperative ATTITUDE: Yes calm and Yes Withdrawn affect present ACTIVITY/MOTOR BEHAVIOR: Yes Avoids eye contact (attititude/behavior) SPEECH: Yes minimal and Yes slow MOOD & AFFECT: Yes depressed mood and Yes Flat affect present Urinary Catheter Management: Dickson: Cath Placed During This Visit: yes Reason for Continuing Indwelling Catheter: Other Urinary Catheter Date of Insertion: 01/17/23 Urinary Catheter Time of Insertion: 22:15 Discharge Data Studies Completed and Pending Completed Studies During Hospitalization Category Date Time Status CT abdomen pelvis w con* [id number] Stat Cat Scan 01/23/23 22:[address] [place] [id number] Routine Cat Scan 01/18/23 16:[address] head wo con* [id number] Stat Cat Scan 01/17/23 14:15 Completed CTA abdomen pelvis [CT angio abdomen pelvis [id number]] Stat Cat Scan 01/24/23 17:48 Completed XR chest 1V portable [id number] Stat Exams 01/17/23 14:07 Completed XR chest 1V portable [id number] Stat Exams 01/17/23 20:50 Completed Pathology: Surgical [PTH] Routine Pth 01/23/23 07:51 Completed CV. 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 Routine Exams 01/25/23 11:09 Taken Complete Blood Count w/Auto AM LABS Lab 01/27/23 04:00 Ordered Complete Blood Count w/Auto AM LABS Lab 01/28/23 04:00 Ordered Comprehensive Metabolic Panel AM LABS Lab 01/27/23 04:00 Ordered Comprehensive Metabolic Panel AM LABS Lab 01/28/23 04:00 Ordered Magnesium AM LABS Lab 01/27/23 04:00 Ordered Magnesium AM LABS Lab 01/28/23 04:00 Ordered Phosphorus AM LABS Lab 01/27/23 04:00 Ordered Phosphorus AM LABS Lab 01/28/23 04:00 Ordered Sputum Culture and Gram Stain Stat Lab 01/17/23 16:31 Uncollected Radiology Impressions Head CT 01/17/23 14:15 IMPRESSION: No acute intracranial abnormality. Chest X-Ray 01/17/23 20:50 IMPRESSION: 1. Right-sided PICC line with tip perhaps going into the azygos vein or coiled in the superior vena cava, consider repositioning. 2. Right central venous catheter tip in the superior vena cava. 3. Cardiomegaly. 4. Sternotomy wires. 5. Moderate left pleural effusion. 6. Right lower lobe atelectasis versus infiltrate. ADDENDUM: 01/17/23 [id number] Second film has been included for review obtained at a later time which demonstrates a right-sided PICC line to be in place in the superior vena cava position correctly. Gallbladder Ultrasound 01/18/23 13:21 IMPRESSION: 1. Layering sludge and small stones in the gallbladder. Gallbladder is mildly hydropic with a small amount of pericholecystic fluid. The extent of sludge has decreased since 11/15/2022. 2. No bile duct dilatation. 3. Mild hepatomegaly and hepatic steatosis. Chest/Abdomen/Pelvis CT 01/18/23 16:52 IMPRESSION: 1. Marked cardiomegaly with enlarged LEFT ventricle similar to previous. 2. Loculated bilateral pleural effusions slightly improved compared to previous. Associated compressive atelectasis. 3. Hepatomegaly with enlargement RIGHT hepatic lobe. 4. Hydropic gallbladder unchanged appearance since November 15, 2022. 5. Calcified fibroid uterus. 6. Diffuse body wall anasarca. 7. Dickosn catheter. 8. No other new findings compared to previous. Abdomen/Pelvis CT 01/23/23 22:05 IMPRESSION: 1. Moderate to large amount of free air in the abdomen, likely related to provided history of recent surgery. 2. Postsurgical changes in the gallbladder fossa with fluid and air seen without contrast extravasation seen with certainty to suggest active bleeding by CT. 3. Bilateral renal cysts, negative for follow-up advised. 4. Calcified fibroids. 5. Chronic pubic symphysis along with left superior and inferior pubic rami fractures. 6. Diffuse vascular calcifications. 7. T12 vertebral body superior endplate compression fracture without retropulsion of bony fragments appears chronic. 8. Left sacral chronic insufficiency fracture similar to prior exam. 9. Anasarca suspected. 10. Moderate right and moderate to large left pleural effusions. 11. Cardiomegaly. 12. Coronary artery atherosclerotic calcifications. 13. Bibasilar left greater than right atelectasis versus infiltrate. 14. Hepatomegaly. 15. Small to moderate amount of nonspecific fluid throughout the abdomen and pelvis. 16. Dickson catheter in the urinary bladder. 17. 18 mm somewhat wedge-shaped low-density area in the spleen may reflect an infarct, perhaps chronic. 18. Small hiatal hernia. COMMENTS: Consistent with the [employer]'s Incidental Findings Committee white paper (J Am Lalo Radiol 2018): Any incidental renal lesion less than 1 cm or classified as too small to characterize, or any incidental cystic renal lesion characterized as simple-appearing, is likely benign. No follow-up imaging is recommended for these lesions per consensus recommendations based on imaging criteria. ADDENDUM: 01/23/23 688 THIS REPORT CONTAINS FINDINGS THAT MAY BE CRITICAL TO PATIENT CARE. The findings were verbally communicated via telephone conference with Nick Aponte at 11:41 PM CDT on 01/23/2023. The findings were acknowledged and understood. Abdomen/Pelvis CTA 01/24/23 17:48 IMPRESSION: 1. No evidence for active GI hemorrhage. 2. Stable pneumoperitoneum, consistent with recent abdominal surgery. 3. Anasarca including pleural effusions, body wall edema, and mesenteric edema. 4. Cholecystectomy. Stable postoperative fluid and gas bubbles in the gallbladder fossa. 5. 3.0 cm right ovarian cyst. No further imaging is recommended. (Reference: Timmy) References: Timmy et al. Management of Incidental Adnexal Findings on CT and MRI: A White Paper of the ACR Incidental Findings Committee, J Am Lalo Radiol. 2019;17(2):248-254. ADDENDUM: 01/25/23 0916 There is filling defect within the right lower lobe pulmonary artery compatible with pulmonary embolism. This finding is new since 11/15/2022. This finding was verbally communicated by Dr. Ortega via telephone conference with GEOVANNI SALVADOR at 9:40 AM EST on 01/25/2023. The findings were acknowledged and understood. Laboratory Results WBC 7.4 10^3/uL (4.0-10.0) 01/26/23 04:50 RBC 4.01 10^6/uL (4.1-5.3) L 01/26/23 04:50 Hgb 12.2 g/dL (11.5-15.3) 01/26/23 04:50 Hct 38.1 % (37.0-47.0) 01/26/23 04:50 MCV 95.0 fl (81-99) 01/26/23 04:50 MCH 30.4 pg (28.0-34.0) 01/26/23 04:50 MCHC 32.0 g/dL (30.0-36.0) 01/26/23 04:50 RDW 16.0 % (12.1-15.1) H 01/26/23 04:50 Plt Count 218 10^3/cmm (130-400) 01/26/23 04:50 MPV 10.1 fL (7.4-10.4) 01/26/23 04:50 Neut % (Auto) 73.5 % 01/26/23 04:50 Lymph % (Auto) 14.7 % 01/26/23 04:50 Bacon % (Auto) 10.7 % 01/26/23 04:50 Eos % (Auto) 0.1 % 01/26/23 04:50 Baso % (Auto) 0.3 % 01/26/23 04:50 Neut # (Auto) 5.44 10^3/uL (1.8-7.7) 01/26/23 04:50 Lymph # (Auto) 1.1 10^3/uL (0.8-4.8) 01/26/23 04:50 Bacon # (Auto) 0.8 10^3/uL (0.2-0.9) 01/26/23 04:50 Eos # (Auto) 0.0 10^3/uL (0.0-0.8) 01/26/23 04:50 Baso # (Auto) 0.0 10^3/uL (0.0-0.1) 01/26/23 04:50 Nucleated RBC % (auto) 1.2 % 01/26/23 04:50 Nucleated RBCs # 0.1 /100WBC 01/26/23 04:50 PT 14.10 SECONDS (12.1-14.9) 01/24/23 08:20 INR 1.06 (0.8-1.2) 01/24/23 08:20 Specimen Type Arterial 01/19/23 04:16 Sample Site Brachial, right 01/19/23 04:16 ABG pH 7.39 (7.35-7.45) 01/19/23 04:16 ABG pCO2 37.3 mmHg (35-45) 01/19/23 04:16 ABG pO2 59.3 mmHg (80.0-100.0) L 01/19/23 04:16 ABG HCO3 22.4 mmol/L (22-26) 01/19/23 04:16 ABG Base Excess -2.3 mmol/L (-2.0-2.0) L 01/19/23 04:16 Tj Test Pos 01/19/23 04:16 VBG pH 7.17 (7.32-7.42) L* 01/17/23 14:20 VBG pCO2 27.9 mmHg (41-51) L 01/17/23 14:20 VBG pO2 161.0 mmHg (25-40) H 01/17/23 14:20 VBG HCO3 10.2 mmol/L (24-28) L 01/17/23 14:20 VBG Base Excess -17.0 mmol/L (-3.0-3.0) L 01/17/23 14:20 VBG Hematocrit 36.4 % (37-47) L 01/17/23 14:20 Hematocrit 31.5 % (37-47) L 01/19/23 04:16 O2 Delivery Device Room air 01/19/23 04:16 FiO2 21.0 % 01/18/23 06:38 [employer] ID Marbin 01/19/23 04:16 Sodium 134 mmol/L (136-145) L 01/26/23 04:50 Potassium 4.3 mmol/L (3.5-5.1) 01/26/23 04:50 Chloride 96 mmol/L (98-107) L 01/26/23 04:50 Carbon Dioxide 20 mmol/L (22-29) L 01/26/23 04:50 Anion Gap 22.3 (5-19) H 01/26/23 04:50 BUN 32 mg/dL (8-23) H 01/26/23 04:50 Creatinine 2.3 mg/dL (0.5-0.9) H 01/26/23 04:50 GFR Calculation 21.0 mL/min (90-130) L 01/26/23 04:50 Glucose 459 mg/dL (65-115) H 01/26/23 04:50 POC Glucose 478 mg/dL (70-110) H 01/26/23 08:43 Estimat Average Glucose 249 01/17/23 14:20 Hemoglobin A1c 10.3 % (4.0-6.0) H 01/17/23 14:20 Calculated Osmolality 305 mOsm/kg (285-295) H 01/26/23 04:50 Lactic Acid 3.7 mmol/L (0.5-2.2) H 01/18/23 08:41 Lactic Acid (Sepsis) 3.1 mmol/L (0.5-2.2) H 01/18/23 12:21 Lactate 1.5 mmol/L (0.5-2.2) 01/21/23 07:48 Calcium 8.1 mg/dL (8.5-10.5) L 01/26/23 04:50 Phosphorus 4.6 mg/dL (2.5-4.5) H 01/26/23 04:50 Magnesium 2.0 mg/dL (1.7-2.3) 01/26/23 04:50 Ferritin 2284 ng/mL (15-150) H 01/18/23 01:00 Total Bilirubin 0.4 mg/dL (0.15-1.2) 01/26/23 04:50 AST 66 U/L (0-32) H 01/26/23 04:50 ALT 83 U/L (0-33) H 01/26/23 04:50 Alkaline Phosphatase 238 U/L (35-105) H 01/26/23 04:50 Ammonia 38 umol/L (11-51) 01/20/23 05:55 Creatine Kinase 37 U/L (26-192) 01/20/23 05:55 Troponin T Baseline 115 ng/L (0-10) H* 01/17/23 17:01 Troponin T 120 Minute 108.9 ng/L (0-10) H 01/17/23 19:24 Delta Troponin T -6.1 ABS# (0-10) L 01/17/23 19:24 Troponin T Hi Sens 6Hr 108.4 ng/L (0-10) H 01/17/23 21:43 Troponin T Hi Sens 6Hr Delta -6.6 ng/L (0-12) L 01/17/23 21:43 C-Reactive Protein 32.4 mg/L (0.0-4.9) H 01/22/23 07:13 NT-Pro-B Natriuret Pep > 52303 pg/mL (0-125) H 01/22/23 07:13 Total Protein 5.0 g/dL (6.6-8.7) L 01/26/23 04:50 Albumin 2.7 g/dL (3.5-5.2) L 01/26/23 04:50 Globulin 2.3 g/dL (1.3-4.6) 01/26/23 04:50 Triglycerides 392 mg/dL (0-150) H 01/17/23 17:01 Cholesterol 192 mg/dL (0-200) 01/17/23 17:01 LDL Cholesterol, Calc 75 mg/dL (50-129) 01/17/23 17:01 HDL Cholesterol 39 mg/dL (60-100) L 01/17/23 17:01 LDL/HDL Ratio 1.92 RATIO (0.00-3.22) 01/17/23 17:01 Cholesterol/HDL Ratio 4.92 mg/dL (0.0-4.40) H 01/17/23 17:01 Lipase 9 U/L (13-60) L 01/18/23 08:41 25-OH Vitamin D Total 64 ng/mL (30-100) 01/23/23 05:06 Procalcitonin 1.68 ng/mL (0-0.5) H 01/22/23 07:13 TSH 9.98 uIU/mL (0.27-4.20) H 01/19/23 08:36 Free T4 0.67 ng/dL (0.82-1.77) L 01/19/23 08:36 Free T3 1.0 PG/ML (2.0-4.4) L 01/19/23 08:36 PTH Intact 148.9 pg/mL (15-65) H 01/23/23 05:06 Calcium (PTH Intact) 7.9 mg/dL (8.5-10.5) L 01/23/23 05:06 Random Cortisol 26.73 ug/dL (2.47-19.5) H 01/17/23 17:50 Urine Color Yellow (Yellow) 01/17/23 23:08 Urine Appearance Cloudy (CLEAR) A 01/17/23 23:08 Urine pH 8 (5-7) H 01/17/23 23:08 Ur Specific [place] 1.010 (1.005-1.030) 01/17/23 23:08 Urine Protein Neg (Negative) 01/17/23 23:08 Urine Glucose (UA) Trace (Normal) H 01/17/23 23:08 Urine Ketones 1+ (Negative) H 01/17/23 23:08 Urine Blood 2+ (Negative) H 01/17/23 23:08 Urine Nitrate Negative (Negative) 01/17/23 23:08 Urine Bilirubin Neg (Negative) 01/17/23 23:08 Prot Sulfosalicylic Acd Positive (Negative) 01/17/23 23:08 Urine Urobilinogen Neg mg/dL (Negative) 01/17/23 23:08 Ur Leukocyte Esterase 2+ (Negative) H 01/17/23 23:08 Urine RBC 5-10 /hpf (0-2) H 01/17/23 23:08 Urine WBC 80-100 /hpf (0-5) H 01/17/23 23:08 Ur Squamous Epith Cells 0-4 /hpf (0-5) H 01/17/23 23:08 Amorphous Sediment Not Reportable 01/17/23 23:08 Urine Bacteria 3+ /hpf (NONE) H 01/17/23 23:08 Urine Mucus 2+ /hpf 01/17/23 23:08 Random Vancomycin 24.7 ug/mL (20.0-40.0) 01/20/23 05:55 Serum Ketones Positive (Negative) H 01/17/23 14:20 Hep Bs Antigen Non-reactive (Nonreactive) 01/17/23 17:50 Hep Bs Antibody 9.0 (11.5-1000) L 01/17/23 17:50 Hep B Core Total Ab Non-reactive (Nonreactive) 01/17/23 17:50 Hepatitis C Antibody Non-reactive (Nonreactive) 01/17/23 17:50 Blood Type A Positive 01/24/23 09:40 Rho(D) Type Positive 01/24/23 09:40 Antibody Screen Not Reportable 01/24/23 09:40 PEG Antibody Screen Negative 01/24/23 09:40 Crossmatch See Detail 01/24/23 09:40 Vitals Last Vital Signs Temp 97.6 F 01/26/23 08:00 Pulse 88 01/26/23 08:25 Resp 17 01/26/23 08:00 BP 153/96 01/26/23 08:00 Pulse Ox 96 01/26/23 08:25 O2 Del Method Nasal Cannula 01/26/23 08:25 O2 Flow Rate 2 01/26/23 08:25 Discharge Plan Discharge Patient Disposition: Home Health Service Condition: Stable Prescriptions: New aspirin 81 mg Tablet,Delayed Release (Dr/Ec) 81 mg PO DAILY Qty: 30 0RF levothyroxine 50 mcg Tablet 50 mcg PO DAILY Qty: 30 0RF metoprolol tartrate 25 mg Tablet 50 mg PO BID@0900,2100 Qty: 120 0RF fenofibrate nanocrystallized 145 mg Tablet 145 mg PO DAILY Qty: 30 0RF Continued pantoprazole 40 mg Tablet,Delayed Release (Dr/Ec) 40 mg PO QAM sevelamer carbonate 800 mg tablet 1,600 mg PO TID hydrocodone-acetaminophen 5-325 mg tablet 1 tab PO Q6H PRN (Reason: pain) 7 Days Qty: 28 0RF lorazepam 1 mg Tablet 1 mg PO TID PRN (Reason: Anxiety) insulin glargine [Lantus Solostar U-100 Insulin] 100 unit/mL (3 mL) insulin pen 5 unit SUBCUT BID donepezil 5 mg Tablet 10 mg PO BEDTIME Qty: 60 0RF insulin lispro [Humalog KwikPen Insulin] 100 unit/mL insulin pen See Rx Instructions .ROUTE .COMPLEX Rx Instructions: per sliding scale atorvastatin 40 mg Tablet 40 mg PO QPM RenaPlex-D 800 mcg-12.5 mg -2,000 unit Tablet 1 tab PO QAM Held clopidogrel 75 mg Tablet 75 mg PO QAM Hold Instructions: Resume on 02/02/23. Discontinued venlafaxine 150 mg capsule,extended release 24hr 150 mg PO QAM torsemide 100 mg tablet 100 mg PO QAM metolazone 5 mg tablet 5 mg PO DAILY aspirin 325 mg Tablet 325 mg PO BID amlodipine 10 mg tablet 10 mg PO BEDTIME carvedilol 12.5 mg Tablet 25 mg PO BID Qty: 120 0RF Rx Instructions: must administer with a meal/food levothyroxine 75 mcg Tablet 37.5 mcg PO DAILY Discharge Orders: Discharge Order (Routine); Ordered 01/26/23 Ordered By: Geovanni Salvador Referrals: [facility] [Other] Zenon De Los Santos MD [Primary Care Provider] - 02/01/23 1:00 pm Yovana Bolivar FNP [Nurse Practitioner] - 02/07/23 12:45 pm Discharge Diet: As Directed Discharge Activity: Resume usual activity and Increase activity as tolerated Patient Instructions: Metoprolol (By mouth), Levothyroxine (By mouth), Aspirin (By mouth), Fenofibrate (By mouth), Deep Vein Thrombosis (IP), Laparoscopic Cholecystectomy (DC), Opioid Safety, Post Anesthesia Care, Pulmonary Embolism Activity Restrictions/Additional Instructions: LEAVE ABD WOUND UNCOVERED AND MESH IN PLACE, WILL FALL OFF ON ITS OWN. Hold off on Plavix for next 1 week. Repeat CBC after starting Plavix. Amlodipine, carvedilol, full dose aspirin has been stopped. Instead take aspirin 81 mg daily, metoprolol 50 mg twice daily. Home dose of torsemide and metolazone has been stopped. Dose of levothyroxine has been increased to 50 mcg daily. Discharge Attestations Time Spent in Discharge Care*: greater than 30 min Specific Discharge Activities: educating patient, educating and/or supporting family/caregiver, discussing with pcp/other providers, discussing with case worker/social workers/dc planners, documenting/other paperwork and evaluating patient/reviewing data Status at Discharge: Cognitive status at discharge: cognitively intact, Behavioral status at discharge: cooperative, Functional status at discharge: uses cane/walker, Overall status at discharge: patient is back to baseline Quality Metrics Clinical Quality Measures [ Venous Thromboembolism { Contraindication to Overlap Therapy: None; Overlap threrpy ordered; VTE Discharge Education: Education about anticoagulant therapy/Care Notes given; Deep Vein Thrombosis/Pulmonary Embolism Present on Admission: No; Contraindication to Pharm VTE Prophylaxis: None; Pharmacological prophylaxis given;}] Coding Level of Care Code 10660 Total time (in minutes) for Discharge: 60 Diagnoses Cholecystitis K81.9 S/P CABG (coronary artery bypass graft) Z95.1 DKA (diabetic ketoacidosis) E11.10 Pre-operative clearance Z01.818 Dvt femoral (deep venous thrombosis) I82.419 Pulmonary embolism I26.99
[2023-01-26 11:39] LABS: Glucose Point of Care 272 mg/dL (70-110)
--- NOTE | 2023-01-26 13:01 | PC.SOCIAL ---
IMM Updated Updated pt on IMM. No questions voiced. Provided pt a copy. Initialed, dated, & timed copy in chart.
--- NOTE | 2023-01-26 17:58 | PM.PN ---
Subjective Subjective: feeling better, plan for discharge after HD today seen via telemedicine during HD Vitals/I&O/Wt Last Vital Signs Temp 97.6 F 01/26/23 16:53 Pulse 64 01/26/23 16:53 Resp 19 H 01/26/23 16:53 BP 138/93 01/26/23 16:53 Pulse Ox 100 01/26/23 16:53 O2 Del Method Nasal Cannula 01/26/23 16:00 O2 Flow Rate 2 01/26/23 08:25 01/26/23 01/26/23 01/26/23 06:59 14:59 22:59 Intake Total 170 / 760 100 / 100 Balance 170 / 760 100 / 100 Weight last 48 hrs Weight 45.178 kg Weight 46.04 kg Physical Exam Const: COMMON NORMALS: no acute distress and alert HENMT: OTHER: + IJ HD catheter Extremity: GENERAL: No edema Neuro: SENSORIUM/ORIENTATION: Yes alert Urinary Catheter Management: Dickson: Cath Placed During This Visit: yes Reason for Continuing Indwelling Catheter: Other Urinary Catheter Date of Insertion: 01/17/23 Urinary Catheter Time of Insertion: 22:15 Data 01/26/23 04:50 01/26/23 04:50 A&P Assessment and plan (1) ESRD on dialysis: (2) S/P cholecystectomy: (3) Gallbladder sludge: (4) Missed dialysis: (5) High anion gap metabolic acidosis: (6) Hyperkalemia: (7) Uremia: (8) Lactic acidosis: (9) Acute encephalopathy: (10) Protein calorie malnutrition: (11) Physical deconditioning: Plan 1. ESRD, HD MWF 2. Post-op anemia s/p transfusion pRBC 3. DVT, PE Recommend: Continue HD MWF Attestations Medical Necessity Statement*: per primary service Time Spent in Patient Care: 16 - 35 minutes Coding Level of Care Code Acute Code for Chg Fwd Diagnoses ESRD on dialysis N18.6; Z99.2 S/P cholecystectomy Z90.49 Gallbladder sludge K82.8 Missed dialysis High anion gap metabolic acidosis E87.29 Hyperkalemia E87.5 Uremia N19 Lactic acidosis E87.20 Acute encephalopathy G93.40 Protein calorie malnutrition E46 Physical deconditioning R53.81
[2023-01-26 18:29] LABS: Glucose Point of Care 139 mg/dL (70-110)
== END 2023-01-26 16:55 | disposition home health service (06) | DRG 853 ==
LOC: ER 14:10 → ICU 16:19 → MEDSURG 01-21 15:52
PROVIDERS: Hospitalist; Internal Medicine; Internal Medicine Nephrology; Surgery; Admitting Provider Family Medicine; Emergency Provider Emergency Medicine; PCP Internal Medicine; Visit Provider Student in an Organized Health Care Education/Training Program
PROC: 0FT44ZZ Resection of Gallbladder, Percutaneous Endoscopic Approach (ICD-10-PCS; CPT 47562; principal; 2023-01-23 07:00)
PROC: 06H03DZ Insertion of Intraluminal Device into Inferior Vena Cava, Percutaneous Approach (ICD-10-PCS; CPT 37191; principal; 2023-01-25 12:00)
DX: A41.9 Sepsis, unspecified organism (principal); E11.10 Type 2 diabetes mellitus with ketoacidosis without coma; R65.21 Severe sepsis with septic shock; I50.23 Acute on chronic systolic (congestive) heart failure; N18.6 End stage renal disease; J96.22 Acute and chronic respiratory failure with hypercapnia; J96.21 Acute and chronic respiratory failure with hypoxia; I26.93 Single subsegmental thrombotic pulmonary embolism without acute cor pulmonale; I21.A1 Myocardial infarction type 2; J18.9 Pneumonia, unspecified organism; G93.49 Other encephalopathy; I13.2 Hypertensive heart and chronic kidney disease with heart failure and with stage 5 chronic kidney disease, or end stage renal disease; D62 Acute posthemorrhagic anemia; I82.411 Acute embolism and thrombosis of right femoral vein; K81.0 Acute cholecystitis; N39.0 Urinary tract infection, site not specified; N17.9 Acute kidney failure, unspecified; E46 Unspecified protein-calorie malnutrition; Z68.1 Body mass index [BMI] 19.9 or less, adult; I47.20 Ventricular tachycardia, unspecified; E11.22 Type 2 diabetes mellitus with diabetic chronic kidney disease; Z99.2 Dependence on renal dialysis; Z91.158 Patient's noncompliance with renal dialysis for other reason; E11.43 Type 2 diabetes mellitus with diabetic autonomic (poly)neuropathy; K31.84 Gastroparesis; E11.649 Type 2 diabetes mellitus with hypoglycemia without coma; I25.10 Atherosclerotic heart disease of native coronary artery without angina pectoris; Z95.1 Presence of aortocoronary bypass graft; I25.2 Old myocardial infarction; E03.9 Hypothyroidism, unspecified; E87.5 Hyperkalemia; Z79.891 Long term (current) use of opiate analgesic; Z79.4 Long term (current) use of insulin; R68.0 Hypothermia, not associated with low environmental temperature; F32.A Depression, unspecified; K21.9 Gastro-esophageal reflux disease without esophagitis; E78.5 Hyperlipidemia, unspecified; E86.0 Dehydration; I25.5 Ischemic cardiomyopathy; I34.0 Nonrheumatic mitral (valve) insufficiency
CPT/HCPCS: 12345; 36010; 36415; 36416; 36430; 36569; 36592; 36600; 37191; 51702; 70450; 71045; 71250; 74174; 74176; 74177; 76705; 80048; 80053; 80061; 80202; 81001; 82009; 82140; 82306; 82310; 82533; 82550; 82728; 82803; 82947; 82962; 83036; 83605; 83690; 83735; 83880; 83970; 84100; 84145; 84439; 84443; 84481; 84484; 85014; 85018; 85025; 85610; 86140; 86705; 86706; 86803; 86850; 86900; 86920; 86927; 87040; 87086; 87340; 87493; 88304; 90935; 93005; 93306; 93970; 96372; 96376; 97110; 97161; 97530; 99152; 99153; 99285; 99291; C1751; C1769; C1880; C1887; C1894; J0282; J0610; J1100; J1644; J1815; J1940; J2060; J2250; J2370; J2405; J2543; J2704; J3010; J3370; J3490; J7030; J7050; J7060; J7120; J7121; J7799; P9016; P9017; P9047; Q3014; Q9967